=== PATIENT | female | born 1945 | race Caucasian/White ===

== ENCOUNTER 2023-03-08 07:40 | Outpatient (OUT) | payer MEDICARE, SELFPAY ==
[2023-03-08 08:03] LABS: Calcium 11.1 mg/dL (8.5-10.1); Estimated GFR (African America 35 (>=60); Estimated GFR (Non-African Ame 29 (>=60)
[2023-03-08 08:16] VITALS: BP 101/61; PULSE 60; RESP 20; TEMP 36.6; O2SAT 94
--- NOTE | 2023-03-08 08:21 | PC.NURSE ---
0759: Pt. to [facility] amb. per self. Using cane with ambulation. Seated in recliner. Denies adverse reaction from previous Prolia injections. VSS. Given cup of coffee. Awaiting lab results.
[2023-03-08] MEDS: DENOSUMAB 60 MG/ML SYRINGE SUBQ (08:28)
--- NOTE | 2023-03-08 08:33 | PC.NURSE ---
0828: Labs resulted. Pt. medicated with Prolia, 60mg, SQ to right arm. No bleeding to injection site. Pt. tolerated without c/o. 0833:Pt. d/c'd to home amb.
== END 2023-03-08 07:41 ==
LOC: LAB 07:40
PROVIDERS: PCP Family Medicine; Visit Provider Family Medicine
DX: M81.0 Age-related osteoporosis without current pathological fracture (principal)
CPT/HCPCS: 36415; 82310; 82565; 96372; J0897

== ENCOUNTER 2023-05-28 11:06 | Outpatient (OUT) | payer MEDICARE, SELFPAY ==
--- NOTE | 2023-05-28 11:09 | MM_ITS ---
Patient: JELLY MONTANEZ Exam Date: 05/28/2023 : 1945 Gender:F Ordering : DR Malcolm Bone . Admission #: [id number] Family : Order #: [id number] CLICK HERE TO VIEW EXAM RADIOLOGY REPORT PROCEDURE: MM TOMOSYNTHESIS SCREENING BI COMPARISON: MG MAMM SCREEN 3D HOMERO CAD, 05/25/2022. MG MAMM SCREEN 3D HOMERO CAD, 04/28/2021. MG MAMM SCREEN HOMERO W CAD, 11/13/2019. MG MAMM HOMERO SCRN W CAD DIG, 06/26/2013. INDICATIONS: Screening Calculator Name NCI Breast Cancer Risk Assessment Tool 5 Year Breast Cancer Risk 1.90% Lifetime Breast Cancer Risk 3.70% Personal Breast Cancer No Personal Ovarian Cancer No Treatments None Family Cancers Grandmother-paternal with breast cancer at age 60. LOCATION: [facility] BREAST COMPOSITION: Heterogeneously dense,which may obscure small masses. FINDINGS: DIAGNOSTIC CATEGORY 1--NEGATIVE. RIGHT BREAST: No significant suspicious finding. No significant change has occurred. LEFT BREAST: No significant suspicious finding. No significant change has occurred. RECOMMENDATIONS: ROUTINE MAMMOGRAM AND CLINICAL EVALUATION IN 12 MONTHS. PLEASE NOTE: A NORMAL MAMMOGRAM DOES NOT EXCLUDE THE POSSIBILITY OF BREAST CANCER. A CLINICALLY SUSPICIOUS PALPABLE LUMP SHOULD BE BIOPSIED. Dictated by: Devaughn Richards M.D. on 05/28/2023 at 16:25 Approved by: Devaughn Richards M.D. on 05/28/2023 at 16:26
== END 2023-05-28 11:07 | disposition home or self-care (01) ==
LOC: MAMMO 11:06
PROVIDERS: PCP Family Medicine; Visit Provider Family Medicine
DX: Z12.31 Encounter for screening mammogram for malignant neoplasm of breast (principal); Z80.3 Family history of malignant neoplasm of breast
CPT/HCPCS: 77063; 77067

== ENCOUNTER 2023-08-20 12:02 | Outpatient (REF) | payer MEDICARE, SELFPAY ==
[2023-08-20 13:35] LABS: SARS-CoV-2 Ag POSITIVE (NEGATIVE)
--- OUTSIDE RECORDS SUMMARY | 2023-09-17 22:23 | XMS_ITS | CCD ---
Author Name Unknown Address [address] [place] [address] Organization [facility] Care Team Providers Care Plug Paster Name Role Phone PHYSICIAN, DEFAULT Unavailable Unavailable PHYSICIAN, DEFAULT Unavailable Unavailable HOY, ISAK Unavailable Unavailable HOY ., DR PARISI Primary Care Unavailable HOY ., DR PARISI Admitting Unavailable HOY ., DR PARISI Attending Unavailable HOY ., DR PARISI Consulting Unavailable HOY ., DR PARISI Primary Care Unavailable HOY ., DR PARISI Admitting Unavailable HOY ., DR PARISI Attending Unavailable HOY ., DR PARISI Consulting Unavailable HOY ., DR PARISI Primary Care Unavailable HOY ., DR PARISI Attending Unavailable HOY ., DR PARISI Admitting Unavailable HOY ., DR PARISI Consulting Unavailable HOY ., DR PARISI Primary Care Unavailable HOY ., DR PARISI Attending Unavailable HOY ., DR PARISI Admitting Unavailable HOY ., DR PARISI Admitting Unavailable HOY ., DR PARISI Attending Unavailable HOY ., DR PARISI Consulting Unavailable HOY ., DR PARISI Primary Care Unavailable HOY ., DR PARISI Primary Care Unavailable HOY ., DR PARISI Attending Unavailable HOY ., DR PARISI Admitting Unavailable HOY ., DR PARISI Consulting Unavailable HOY ., DR PARISI Admitting Unavailable HOY ., DR PARISI Attending Unavailable HOY ., DR PARISI Consulting Unavailable HOY ., DR PARISI Primary Care Unavailable EZEKIEL, DR SHILA Serrato Consulting Unavailable ALGHOTHANI, MOHAMAD Admitting Unavailable HOY ., DR PARISI Primary Care Unavailable ALGHOTHANI, MOHAMAD Attending Unavailable ALGHOTHANI, MOHAMAD Consulting Unavailable HOY ., DR PARISI Admitting Unavailable HOY ., DR PARISI Primary Care Unavailable HOY ., DR PARISI Attending Unavailable HOY ., DR PARISI Consulting Unavailable PAMELA PECK Consulting Unavailable ALGHOTHANI, MOHAMAD Attending Unavailable EFREN, ADRIAN Attending Unavailable HOY, ISAK Referring Unavailable AKIRA, MYNOR Attending Unavailable AKIRA, MYNOR Attending Unavailable AKIRA, MYNOR Attending Unavailable AKIRA, MYNOR Referring Unavailable ROMAN, JOHNNIE Admitting Unavailable ROMAN, JOHNNIE Attending Unavailable ALGHOTHANI, MOHAMAD Attending Unavailable ALGHOTHANI, MOHAMAD Admitting Unavailable ALGHOTHANI, MOHAMAD Attending Unavailable ROJELIO, LILIA Attending Unavailable ALGHOTHANI, MOHAMAD Referring Unavailable AKIRA, MYNOR Referring Unavailable EFREN, ADRIAN Referring Unavailable ALGHOTHANI, MOHAMAD Referring Unavailable Allergies Allergy Classification Reported Allergen(s) Allergy Type Date of Onset Reaction(s) Facility (4 sources) Penicillins; Translations: [PENICILLINS] Drug allergy (disorder) 08-10-2009 [facility] Repository Problems Active Problems Problem Classification Problem Date Documented Date Episodic/Chronic Cardiac dysrhythmias (2 sources) Paroxysmal atrial fibrillation; Translations: [Paroxysmal atrial fibrillation] Onset: 07-12-2023 Chronic Chronic kidney disease (2 sources) Chronic kidney disease, stage 1; Translations: [Chronic kidney disease, unspecified] Onset: 12-07-2022 Chronic Congestive heart failure; nonhypertensive (1 source) Unspecified diastolic (congestive) heart failure; Translations: [UNSPECIFIED DIASTOLIC HEART FAILURE] Onset: 10-31-2022 Chronic Coronary atherosclerosis and other heart disease (3 sources) Atherosclerotic heart disease of [place] coronary artery without angina pectoris; Translations: [ASHD SAULT STE[address] MARIE CA W/O ANGINA PECTORIS] Onset: 10-31-2022 Chronic Disorders of lipid metabolism (1 source) Hyperlipidemia, unspecified; Translations: [HYPERLIPIDEMIA UNSPECIFIED] Onset: 10-31-2022 Chronic Heart valve disorders (2 sources) Nonrheumatic mitral (valve) insufficiency; Translations: [Nonrheumatic mitral (valve) insufficiency] Onset: 11-07-2022 Chronic Hypertension with complications and secondary hypertension (5 sources) Hypertensive chronic kidney disease with stage 1 through stage 4 chronic kidney disease, or unspecified chronic kidney disease; Translations: [Hypertensive heart disease with heart failure] Onset: 10-31-2022 Chronic Nutritional deficiencies (4 sources) Vitamin D deficiency, unspecified; Translations: [VITAMIN D DEFICIENCY UNSPECIFIED] Onset: 10-29-2022 Chronic Osteoarthritis (2 sources) Unilateral primary osteoarthritis, left knee; Translations: [Unilateral primary osteoarthritis, left knee] Onset: 04-16-2023 Chronic Osteoporosis (4 sources) Age-related osteoporosis without current pathological fracture; Translations: [AGE-REL OSTEOPOR W/O CURR PATH FX] Onset: 09-05-2022 Chronic Other and ill-defined heart disease (3 sources) Cardiomegaly; Translations: [CARDIOMEGALY] Onset: 10-31-2022 Chronic Other connective tissue disease (2 sources) Presence of left artificial knee joint; Translations: [Presence of left artificial knee joint] Onset: 07-27-2023 Chronic Pulmonary heart disease (3 sources) Pulmonary hypertension, unspecified; Translations: [PULMONARY HYPERTENSION UNSPECIFIED] Onset: 10-31-2022 Chronic Unclassified (1 source) Other abnormal findings on cytological and histological examination of urine; Translations: [OTH ABN FIND CYTLG HISTLG EXM URINE] Onset: 12-07-2022 Unclassified (2 sources) Chronic atrial fibrillation, unspecified; Translations: [Chronic atrial fibrillation, unspecified] Onset: 07-12-2023 Urinary tract infections (1 source) Urinary tract infection, site not specified; Translations: [UTI SITE NOT SPECIFIED] Onset: 12-07-2022 Episodic Past or Other Problems Problem Classification Problem Date Documented Date Episodic/Chronic Deficiency and other anemia (1 source) Anemia, unspecified; Translations: [ANEMIA UNSPECIFIED] Onset: 10-31-2022 Episodic Diabetes mellitus without complication (1 source) Other abnormal glucose; Translations: [OTHER ABNORMAL GLUCOSE] Onset: 10-31-2022 Episodic Nonspecific chest pain (1 source) Chest pain, unspecified; Translations: [CHEST PAIN UNSPECIFIED] Onset: 11-04-2022 Episodic Other lower respiratory disease (4 sources) Shortness of breath; Translations: [SHORTNESS OF BREATH] Onset: 11-01-2022 Episodic Other non-traumatic joint disorders (2 sources) Pain in left knee; Translations: [Pain in left knee] Onset: 04-11-2023 Episodic Other screening for suspected conditions (not mental disorders or infectious disease) (6 sources) Encounter for screening mammogram for malignant neoplasm of breast; Translations: [Abnormal result of other cardiovascular function study] Onset: 05-25-2022 Episodic Residual codes; unclassified (1 source) Family history of malignant neoplasm of breast; Translations: [FAMILY HX MALIG NEOPLASM OF BREAST] Onset: 05-27-2022 Episodic Results Test Name Value Interpretation Reference Range Facil ity Office Visiton 09-13-2023 Follow-up visit [id number] Mignon Montanez cinthia E 1945 Provider Department Center 09/13/2023 120-ROJELIO, LILIA BH CARD [facility] Family History Problem Relation Age of Onset Other Mother Other Mother Heart attack Father's Sister Family Status - Relation Status Age at Mother Father's Sister Level of Service:46502 [place] OFFICE/OUTPATIENT ESTABLISHED MOD MDM 30-39 MIN Normal [facility] Office Visiton 08-29-2023 Follow-up visit [id number] Mignon Montanez cinthia E 1945 Provider Department Center 08/29/2023 MYNOR SANDOVAL [facility] Family History Problem Relation Age of Onset Other Mother Other Mother Heart attack Father's Sister Family Status - Relation Status Age at Mother Father's Sister Level of Service:85351 [place] POSTOP FOLLOW UP VISIT RELATED TO ORIGINAL PX Reason for Visit and Comments: Pain [136] - L TKA Normal [facility] Office Visiton 07-25-2023 Follow-up visit [id number] Mignon Montanez cinthia E 1945 Provider Department Center 07/25/2023 MYNOR SANDOVAL MPRTDIAMOND Family History Problem Relation Age of Onset Other Mother Other Mother Heart attack Father's Sister Family Status - Relation Status Age at Mother Father's Sister Level of Service:28835 [place] POSTOP FOLLOW UP VISIT RELATED TO ORIGINAL PX Reason for Visit and Comments: Post-op [483] [facility] 36on 07-18-2023 36 Left VM for Any faustin that patient has a MINAL dressing not a wound vac and it does not need to be changed. The box will automatically shut off tomorrow and he or she can cut the tubing near the dressing and leave the dry dressing in place. I left my number if he has an questions. [facility] 36on 07-17-2023 36 ANY FROM HOME HEALT H CALLED REQUESTING CLARIFICATION ON WOUND VAC ORDERS FROM L TKA , HE ALSO NEEDS CLARIFICATION ON PT , HE WILL SEE PATIENT 2X/WEEK FOR 2 WEEKS, PLEASE CALL TO CONFIRM // ANY [phone] [facility] Telephoneon 07-17-2023 Telephone [id number] Mignon Montanez Abbie 1945 F Date Provider Department Center 07/17/2023 Demi-URIEL DASILVA MP ORTHO MPORTHO Family History Problem Relation Age of Onset Other Mother Other Mother Heart attack Father's Sister Family Status - Relation Status Age at Mother Father's Sister Reason for Visit and Comments: HOME HEALTH ORDERS [Other] - ANY FROM HOME HEALTH CALLED REQUESTING CLARIFICATION ON WOUND VAC ORDERS FROM L TKA , HE ALSO NEEDS CLARIFICATION ON PT , HE WILL SEE PATIENT 2X/WEEK FOR 2 WEEKS, PLEASE CALL TO CONFIRM // ANY [phone] [facility] 30on 07-16-2023 30 Problem: Pain - Adul t Goal: Verbalizes/displays adequate comfort level or baseline comfort level Outcome: Progressing The patient is Moderately Stable - Low risk of patient condition declining or worsening The patient's goals for the shift include walk to bathroom The clinical goals for the shift include comfort Normal [facility] on 07-15-2023 30 Problem: Pain - Adul t Goal: Verbalizes/displays adequate comfort level or baseline comfort level Outcome: Progressing Problem: Safety - Adult Goal: Free from fall injury Outcome: Progressing The patient is Moderately Stable - Low risk of patient condition declining or worsening The patient's goals for the shift include walk to bathroom The clinical goals for the shift include comfort Normal [facility] BASIC METABOLIC PANELon 06-30 Anion gap [Moles/Vol] 8 mmol/L Normal 7-20 [facility] Comment on above: Performed By: #### L [id number] #### [facility] ([facility]) [address] [place] [address] Calcium [Mass/Vol] 9.0 mg/dL Normal 8.6-10.3 [facility] Comment on above: Performed By: #### L [id number] #### [facility] ([facility]) [address] [place] [address] Chloride [Moles/Vol] 110 mmol/L High 98-107 [facility] Comment on above: Performed By: #### L [id number] #### [facility] ([facility]) [address] [place] [address] CO2 [Moles/Vol] 19 mmol/L Low 21-31 [facility] Comment on above: Performed By: #### L [id number] #### [facility] ([facility]) [address] [place] [address] Creatinine [Mass/Vol] 1.68 mg/dL High 0.60-1.20 [facility] Comment on above: Performed By: #### L [id number] #### [facility] ([facility]) [address] [place] [address] GLOMERULAR FILTRATION RATE ML/MIN/1.73 SQ M.PREDICTED 31.1 mL/min/1.73m*2 Low >60.0 [facility] Comment on above: Result Comment: The [facility]???s estimated glomerular filtration rate (eGFR) will no longer include consideration of race in its calculation. The National Kidney Foundation???s eGFR Task Force developed new recommendations for the estimation of the glomerular filtration rate in the [place] They recommend immediate implementation of the new equation refit without the race variable in all laboratories because the calculation does not include race. In addition to not including race in the calculation and reporting, it included diversity in its development, and has acceptable performance characteristics and potential consequences that do not disproportionately affect any one group of individuals. Performed By: #### L [id number] #### [facility] ([facility]) [address] [place] [address] Glucose [Mass/Vol] 87 mg/dL Normal 70-100 [facility] Comment on above: Performed By: #### L [id number] #### [facility] ([facility]) [address] [place] [address] Potassium [Moles/Vol] 4.1 mmol/L Normal 3.5-5.1 [facility] Comment on above: Performed By: #### L [id number] #### [facility] ([facility]) [address] [place] [address] Sodium [Moles/Vol] 133 mmol/L Low 136-145 [facility] Comment on above: Performed By: #### L [id number] #### [facility] ([facility]) [address] [place] [address] Urea nitrogen [Mass/Vol] 41 mg/dL High 7-25 [facility] Comment on above: Performed By: #### L [id number] #### [facility] [address] [place] [address] UREA NITROGEN/CREATININE (MA SS RATIO) IN SER/PLAS 24.4 Normal [facility] Comment on above: Performed By: #### L [id number] #### [facility] [address] [place] [address] CBCon 07-15-2023 Erythrocyte distribution wid th (RBC) [Ratio] 13.6 % Normal 11.5-15.0 [facility] Comment on above: Performed By: #### L [id number] #### [facility] [address] [place] [address] ERYTHROCYTE MEAN CORPUSCULAR HEMOGLOBIN CONCENTRATION (G/DL) BY AUTOMATED 31.1 g/dL Low 32.0-35.0 [facility] Comment on above: Performed By: #### L [id number] #### [facility] ([facility]) [address] [place] [address] Hematocrit (Bld) [Volume fraction] 24.1 % Low 36.0-48.0 [facility] Comment on above: Performed By: #### L [id number] #### [facility] ([facility]) [address] [place] [address] Hemoglobin (Bld) [Mass/Vol] 7.5 g/dL Low 12.0-15. 0 [facility] Comment on above: Performed By: #### L [id number] #### [facility] ([facility]) [address] [place] [address] MCH (RBC) [Entitic mass] 32.5 pg Normal 27.0-33.0 [facility] Comment on above: Performed By: #### L [id number] #### [facility] ([facility]) [address] [place] [address] MCV (RBC) [Entitic vol] 104.3 fL High 82.0-98.0 [facility] Comment on above: Performed By: #### L [id number] #### [facility] ([facility]) [address] [place] [address] PLATELETS (10*3/UL) IN BLOOD AUTOMATED COUNT 151 10*3/uL Normal 150-400 [facility] Comment on above: Performed By: #### L [id number] #### [facility] ([facility]) [address] [place] [address] RBC (Bld) [#/Vol] 2.31 10*6/uL Low 3.80-5.00 [facility] Comment on above: Performed By: #### L [id number] #### [facility] ([facility]) [address] [place] [address] WBC (Bld) [#/Vol] 8.66 10*3/uL Normal 4.00-10.60 [facility] Comment on above: Performed By: #### L [id number] #### [facility] ([facility]) [address] [place] [address] 30on 07-14-2023 30 PT/OT rec SNF today. Spoke with pt and family at bedside. She reports she did better than yesterday but is not comfortable going home today. Explained to pt. The pre-cert process with SNF and that she would be here for days while that is being worked on. She is agreeable but hopeful she will improve enough by tomorrow to go home with use of a rolling walker. reports he as one available. Pt requests referrals be sent to [facility]. SW sent. Normal [facility] 30 The patient is Moder ately Stable - Low risk of patient condition declining or worsening The patient's goals for the shift include walk to bathroom The clinical goals for the shift include comfort Over the shift, the patient did not make progress toward the following goals. Barriers to progression include unsteadiness. Recommendations to address these barriers include emotional support, PT/OT, ambulating . Normal [facility] BASIC METABOLIC PANELon 10- Anion gap [Moles/Vol] 10 mmol/L Normal 7-20 [facility] Comment on above: Performed By: #### L [id number] #### [facility] ([facility]) [address] [place] [address] Calcium [Mass/Vol] 9.4 mg/dL Normal 8.6-10.3 [facility] Comment on above: Performed By: #### L [id number] #### [facility] ([facility]) [address] [place] [address] Chloride [Moles/Vol] 109 mmol/L High 98-107 [facility] Comment on above: Performed By: #### L [id number] #### [facility] ([facility] [address] [place] [address] CO2 [Moles/Vol] 21 mmol/L Normal 21-31 [facility] Comment on above: Performed By: #### L [id number] #### [facility] ([facility]) [address] [place] [address] Creatinine [Mass/Vol] 1.66 mg/dL High 0.60-1.20 [facility] Comment on above: Performed By: #### L [id number] #### [facility] ([facility]) [address] [place] [address] GLOMERULAR FILTRATION RATE ML/MIN/1.73 SQ M.PREDICTED 31.6 mL/min/1.73m*2 Low >60.0 [facility] Comment on above: Result Comment: The [facility]???s estimated glomerular filtration rate (eGFR) will no longer include consideration of race in its calculation. The National Kidney Foundation???s eGFR Task Force developed new recommendations for the estimation of the glomerular filtration rate in the [place] They recommend immediate implementation of the new equation refit without the race variable in all laboratories because the calculation does not include race. In addition to not including race in the calculation and reporting, it included diversity in its development, and has acceptable performance characteristics and potential consequences that do not disproportionately affect any one group of individuals. Performed By: #### L [id number] #### [facility] ([facility]) [address] [place] [address] Glucose [Mass/Vol] 100 mg/dL Normal 70-100 [facility] Comment on above: Performed By: #### L [id number] #### [facility] ([facility]) [address] [place] [address] Potassium [Moles/Vol] 4.7 mmol/L Normal 3.5-5.1 [facility] Comment on above: Performed By: #### L [id number] #### [facility] ([facility]) [address] [place] [address] Sodium [Moles/Vol] 135 mmol/L Low 136-145 [facility] Comment on above: Performed By: #### L [id number] #### [facility] ([facility]) [address] [place] [address] Urea nitrogen [Mass/Vol] 38 mg/dL High 7-25 [facility] Comment on above: Performed By: #### L [id number] #### [facility] ([facility]) [address] [place] [address] UREA NITROGEN/CREATININE (MA SS RATIO) IN SER/PLAS 22.9 Normal [facility] Comment on above: Performed By: #### L [id number] #### [facility] ([facility]) [address] [place] [address] CBCon 07-14-2023 Erythrocyte distribution wid th (RBC) [Ratio] 13.5 % Normal 11.5-15.0 [facility] Comment on above: Performed By: #### L [id number] #### [facility] ([facility]) [address] [facility] [place] [address] ERYTHROCYTE MEAN CORPUSCULAR HEMOGLOBIN CONCENTRATION (G/DL) BY AUTOMATED 31.4 g/dL Low 32.0-35.0 [facility] Comment on above: Performed By: #### L [id number] #### [facility] ([facility] [address] [place] [address] Hematocrit (Bld) [Volume fraction] 24.5 % Low 36.0-48.0 [facility] Comment on above: Performed By: #### L [id number] #### [facility] [address] [place] [address] Hemoglobin (Bld) [Mass/Vol] 7.7 g/dL Low 12.0-15. 0 [facility] Comment on above: Performed By: #### L [id number] #### [facility] [address] [place] [address] MCH (RBC) [Entitic mass] 32.4 pg Normal 27.0-33.0 [facility] Comment on above: Performed By: #### L [id number] #### [facility] ([facility] [address] [place] [address] MCV (RBC) [Entitic vol] 102.9 fL High 82.0-98.0 [facility] Comment on above: Performed By: #### L [id number] #### [facility] [address] [place] [address] PLATELETS (10*3/UL) IN BLOOD AUTOMATED COUNT 148 10*3/uL Low 150-400 [facility] Comment on above: Performed By: #### L [id number] #### [facility] ([facility] [address] [place] [address] RBC (Bld) [#/Vol] 2.38 10*6/uL Low 3.80-5.00 [facility] Comment on above: Performed By: #### L [id number] #### [facility] ([facility] [address] [place] [address] WBC (Bld) [#/Vol] 11.57 10*3/uL High 4.00-10.60 [facility] Comment on above: Performed By: #### L [id number] #### [facility] ([facility]) [address] [place] [address] FERRITINon 07-14-2023 FERRITIN (NG/ML) IN SER/PLAS 364.0 ng/mL High 11.0-3 07.0 [facility] Comment on above: Performed By: #### L [id number] #### [facility] ([facility]) [address] [place] [address] FOLATEon 07-14-2023 FOLATE (NG/ML) IN SER/PLAS 14.79 ng/mL Normal 6.6-1000 [facility] Comment on above: Performed By: #### L [id number] #### [facility] [address] [place] [address] IRON AND TIBCon 07-14-2023 IRON (UG/DL) IN SER/PLAS 36 ug/dL Low 50-212 [facility] Comment on above: Performed By: #### L [id number] #### [facility] [address] [place] [address] IRON BINDING CAPACITY (UG/DL ) IN SER/PLAS 218 ug/dL Low 250-450 [facility] Comment on above: Performed By: #### L [id number] #### [facility] ([facility]) [address] [place] [address] IRON BINDING CAPACITY.UNSATURATED (UG/DL) IN SER/PLAS 182.0 ug/dL Normal 155.0-355.0 [facility] [facility] Comment on above: Performed By: #### L [id number] #### [facility] (BEAKER) [address] [place] [address] IRON SATURATION (%) IN SER/PLAS 17 % Low 20-5 0 [facility] Comment on above: Performed By: #### L [id number] #### [facility] ([facility]) [address] [address] VITAMIN B12on 07-14-2023 Cobalamin (Vitamin B12) [Mass/Vol] 744 pg/mL Normal 180-914 [facility] Comment on above: Result Comment: REFAbbie RENRUTH RANGES: 180-914 pg/mL Normal 145-179 pg/mL Indeterminate <145 pg/mL Deficient Performed By: #### L [id number] #### [facility] ([facility]) [address] [place] [address] 30on 07-13-2023 30 Unable to get pt. Fo llow up appointment through central scheduling. AVS instructs pt. To call Ortho to schedule Normal [facility] 30 The patient is Moder ately Stable - Low risk of patient condition declining or worsening The patient's goals for the shift include comfort The clinical goals for the shift include comfort Over the shift, the patient did not make progress toward the following goals. Barriers to progression include pain. Recommendations to address these barriers include polar pack, rest, emotional support. Normal [facility] BASIC METABOLIC PANELon 06-30 Anion gap [Moles/Vol] 13 mmol/L Normal 7-20 [facility] Comment on above: Performed By: #### L [id number] #### [facility] ([facility]) [address] [place] [address] Calcium [Mass/Vol] 10.0 mg/dL Normal 8.6-10.3 [facility] Comment on above: Performed By: #### L [id number] #### [facility] ([facility]) [address] [place] [address] Chloride [Moles/Vol] 111 mmol/L High 98-107 [facility] Comment on above: Performed By: #### L [id number] #### [facility] ([facility]) [address] [facility] [address] CO2 [Moles/Vol] 19 mmol/L Low 21-31 [facility] Comment on above: Performed By: #### L [id number] #### [facility] ([facility]) [address] [place] [address] Creatinine [Mass/Vol] 1.47 mg/dL High 0.60-1.20 [facility] Comment on above: Performed By: #### L [id number] #### [facility] ([facility]) [address] [place] [address] GLOMERULAR FILTRATION RATE ML/MIN/1.73 SQ M.PREDICTED 36.5 mL/min/1.73m*2 Low >60.0 [facility] Comment on above: Result Comment: The [facility]???s estimated glomerular filtration rate (eGFR) will no longer include consideration of race in its calculation. The National Kidney Foundation???s eGFR Task Force developed new recommendations for the estimation of the glomerular filtration rate in the [place] They recommend immediate implementation of the new equation refit without the race variable in all laboratories because the calculation does not include race. In addition to not including race in the calculation and reporting, it included diversity in its development, and has acceptable performance characteristics and potential consequences that do not disproportionately affect any one group of individuals. Performed By: #### L [id number] #### [facility] ([facility]) [address] [place] [address] Glucose [Mass/Vol] 167 mg/dL High 70-100 [facility] Comment on above: Performed By: #### L [id number] #### [facility] ([facility]) [address] [place] [address] Potassium [Moles/Vol] 4.5 mmol/L Normal 3.5-5.1 [facility] Comment on above: Performed By: #### L [id number] #### [facility] ([facility]) [address] [place] [address] Sodium [Moles/Vol] 138 mmol/L Normal 136-145 [facility] Comment on above: Performed By: #### L [id number] #### [facility] ([facility]) [address] [place] [address] Urea nitrogen [Mass/Vol] 34 mg/dL High 7-25 [facility] Comment on above: Performed By: #### L [id number] #### [facility] ([facility]) [address] [place] [address] UREA NITROGEN/CREATININE (MA SS RATIO) IN SER/PLAS 23.1 Normal [facility] Comment on above: Performed By: #### L [id number] #### [facility] ([facility]) [address] [place] [address] CBCon 07-13-2023 Erythrocyte distribution wid th (RBC) [Ratio] 13.4 % Normal 11.5-15.0 [facility] Comment on above: Performed By: #### L [id number] #### [facility] ([facility]) [address] [place] [address] ERYTHROCYTE MEAN CORPUSCULAR HEMOGLOBIN CONCENTRATION (G/DL) BY AUTOMATED 31.1 g/dL Low 32.0-35.0 [facility] Comment on above: Performed By: #### L [id number] #### [facility] ([facility]) [address] [place] [address] Hematocrit (Bld) [Volume fraction] 27.0 % Low 36.0-48.0 [facility] Comment on above: Performed By: #### L [id number] #### [facility] ([facility]) [address] [facility] [facility] [address] Hemoglobin (Bld) [Mass/Vol] 8.4 g/dL Low 12.0-15. 0 [facility] Comment on above: Performed By: #### L [id number] #### [facility] ([facility]) [address] [facility] [address] MCH (RBC) [Entitic mass] 32.6 pg Normal 27.0-33.0 [facility] Comment on above: Performed By: #### L [id number] #### [facility] ([facility]) [address] [facility] [facility] [address] MCV (RBC) [Entitic vol] 104.7 fL High 82.0-98.0 [facility] Comment on above: Performed By: #### L [id number] #### [facility] (BEAKER) [address] [place] [address] PLATELETS (10*3/UL) IN BLOOD AUTOMATED COUNT 147 10*3/uL Low 150-400 [facility] Comment on above: Performed By: #### L [id number] #### [facility] ([facility]) [address] [place] [address] RBC (Bld) [#/Vol] 2.58 10*6/uL Low 3.80-5.00 [facility] Comment on above: Performed By: #### L [id number] #### [facility] ([facility]) [address] [place] [address] WBC (Bld) [#/Vol] 9.44 10*3/uL Normal 4.00-10.60 [facility] Comment on above: Performed By: #### L [id number] #### [facility] ([facility]) [address] [place] [address] HPon 07-12-2023 H&P reviewed. The pa tient was examined and there are no changes to the H&P. I personally examined the patient and Marked his operative extremity, all questions answered and consents signed. Discussed operative and post op plan. Normal [facility] OPNOTEon 07-12-2023 OPNOTE ARTHROPLASTY, KNEE, TOTAL (L) Operative Note Date: 07/12/2023 Location: [facility] OR Name: Lizabeth Montanez, : 1945, Diagnosis Pre-op Diagnosis * Localized osteoarthritis of left knee [M17.12] Post-op Diagnosis * Localized osteoarthritis of left knee [M17.12] Procedures ARTHROPLASTY, KNEE, TOTAL 61686 - [place] ARTHRP KNE CONDYLE&PLATU MEDIAL&LAT COMPARTMENTS Surgeons * Mynor Gallegos - Primary Ari Dey MD Procedure Summary Anesthesia: General ASA: III Estimated Blood Loss: 700 mL Drains: Urethral Catheter Non-latex 16 Fr. (Active) Site Assessment Clean;Skin intact 07/12/23 140 Collection Container Standard drainage bag 07/12/231400 Securement Method Securing device (Describe) 07/12/231400 Reason for Continuing Urinary Catheterization Critically ill in ICU, hourly outputs 07/12/23 140 Implants Type Name Action Serial No. Bone Cement CEMENT,BONE,R,1X40US - [id number] Implanted Bone Cement CEMENT,BONE,R,1X40US - [id number] Implanted PERSONA FEMUR CEMENTED CRUCIATE RETAINING Implanted PERSONA ALL POLY PATELLA Implanted PERSONA NATURAL TIBIA 5 DEGREE LEFT Implanted PERSONA VIVACIT-E HIGHLY CROSSLINKED POLYETHYLENE ARTICULAR SURFACE MEDIAL CONGRUENT Implanted Jean-Pierre [employer]omet Persona Total knee system Size 5 Cemented Cruciate retaining femoral component, Left Size E cemented tibial component , Persona 35 mm patella , Persona vivacit-E Medial congruent (MC) poly 13 mm , Biomet bone cement. Staff: Gwot Ia[employer] Support: Ju Rios; Rebecca Bertrand RN Relief Scrub: Hazel Baez Scrub Person: Ke Pike, RETAIL ANALYST Hydrology Professor: Sampson Almaraz CSA Indications: Lizabeth Montanez is an 78 y.o. female who is having surgery for Localized osteoarthritis of left knee [M17.12]. Patient with long standing Left knee pain and Deformity . Patient failed conservative treatment in the form of multiple joint injections. Recommendation were given for Left total knee arthroplasty. All the risks and benefits of the surgery were discussed in details with the patient. Discussed risk of anesthesia, infection, bleeding, injury to nerves and vessels, stiffness, persistence of pain, injury to surrounding structures, blood clots in the legs or lungs, medical complications and the need for revision surgery. Discussed with the patient that he is high risk for complications because of her severe deformity and extensive osteophyte formation. An informed consent was obtained. All the preoperative clearances and labs were obtained. Procedure Details: The patient was seen in the preoperative area. All questions were answered and consents were signed. Her operative extremity was marked. Patient received an adductor canal block by the anesthesia team. Patient was then taken back to the OR where she received general anesthesia. Patient was positioned in a supine position on the operating table. A nonsterile tourniquet was applied outside of the surgical field. Fernandez catheter was applied. Her Left lower extremity was prepped and draped in the standard sterile fashion. A complete surgical timeout was performed in the room in my presence I identified the patient the site of the surgery as well as the procedure to be done. Preoperative antibiotics were given per protocol. We Started by marking an anterior midline incision over the Left knee extending from the tibial tubercle to about 3 cm proximal to the superior pole of patella. . Incision was made dissection continued deeper to the deep fascia. A medial subfacial flap and a smaller lateral flap were elevated. A medial parapatellar arthrotomy was performed in the standard fashion. The knee was opened with significant amount of arthritis. The medial tibial peel was performed to the mid axial plane. The lateral patellar fat pad was excised to improve visualization. The synovium over the anterior aspect of the distal femur was excised. Good hemostasis was obtained using Aquamantys machine. At this point the patella was everted and the lateral patellofemoral ligament was released. The knee was very gently flexed and the leg externally rotated to decrease tension over the patellar ligament. At this point the knee was exposed with significant arthritis of the tibial and femoral surfaces especially in the medial compartments with complete cartilage loss and eburnation of articular surface as well as extensive osteophyte formation and significant depression of the articular surface.. The remnants of the medial and lateral menisci were removed. The remnants of the ACL and PCL attachments are released to decrease tension. At this point the femoral medullary canal was opened , the marrow contents suctioned and the intramedullary distal femoral cutting guide was applied. The cutting block was pinned and the distal femoral cut performed at 5 degrees pf valgus. At this point the proximal tibia was exposed with significant deformity of the dorothy (more content not included)... Normal [facility] POCT GLUCOSE METER UNSOLICIT ED RESULTSon 07-12-2023 Glucose [Mass/Vol] 108 mg/dL High 70-105 [facility] Comment on above: Order Comment: Waive d Testing in the ED is performed under the ED CLIA certificate #[id number]. Result Comment: dhol as Performed By: #### L [id number] #### [facility] ([facility]AKER) [address] [place] [address] [id number] 07-08-2023 [id number] NPO AFTER MN NO JEWELRY BRING INS AND ID ARRIVE AT [facility] HOLD ELIQUIS 07/09 STARTING PM DOSE HOLD NSAIDS STARTING TODAY 07/08 HOLD CELEBREX STARTING TOMORROW 07/09 TAKE HYDRALIZINE, DILTELZIEM, AND BISOPROLOL DAY OF SURGERY WITH SMALL SIP OF WATER. Normal [facility] Orders Onlyon 07-08-2023 Orders Only [id number] Mignon Montanez n E 1945 F Date Provider Department Center 07/08/2023 KENNA SCHWARTZ [facility] Family History Problem Relation Age of Onset Other Mother Other Mother Heart attack Father's Sister Family Status - Relation Status Age at Mother Father's Sister [facility] 36on 07-02-2023 36 Patient wants to kno w if akira can addend his note for surgery clearance, from 01/28/23, [facility] Telephoneon 07-02-2023 Telephone [id number] Mignon Montanez n E 1945 F Date Provider Department Center 07/02/2023 ANNE FUCHS [facility] OR[facility]O MPOHO Family History Problem Relation Age of Onset Other Mother Other Mother Heart attack Father's Sister Family Status - Relation Status Age at Mother Father's Sister [facility] APTTon 06-27-2023 ACTIVATED PARTIAL THROMBOPLASTIN TIME IN PPP BY COAGULATION ASSAY 32.4 Seconds Normal 25.0-35.0 [facility] Comment on above: Result Comment: Clin ical significance of the APTT is questionable in the presence of heparin. Performed By: #### L [id number] ####[facility] (BEAKER)[address] [place] [address] BASIC METABOLIC PANELon 06-01 Anion gap [Moles/Vol] 10 mmol/L Normal 7-20 [facility] Comment on above: Performed By: #### L [id number] #### [facility] (BEAKER) [address] [place] [address] Calcium [Mass/Vol] 11.5 mg/dL High 8.6-10.3 [facility] Comment on above: Performed By: #### L [id number] #### [facility] (BEAKER) [address] [place] [address] Chloride [Moles/Vol] 113 mmol/L High 98-107 [facility] Comment on above: Performed By: #### L [id number] #### [facility] ([facility]) [address] [place] [address] CO2 [Moles/Vol] 22 mmol/L Normal 21-31 [facility] Comment on above: Performed By: #### L [id number] #### [facility] ([facility]) [address] [place] [address] Creatinine [Mass/Vol] 1.71 mg/dL High 0.60-1.20 [facility] Comment on above: Performed By: #### L [id number] #### [facility] ([facility]) [address] [place] [address] GLOMERULAR FILTRATION RATE ML/MIN/1.73 SQ M.PREDICTED 30.5 mL/min/1.73m*2 Low >60.0 [facility] Comment on above: Result Comment: The [facility]???s estimated glomerular filtration rate (eGFR) will no longer include consideration of race in its calculation. The National Kidney Foundation???s eGFR Task Force developed new recommendations for the estimation of the glomerular filtration rate in the [place] They recommend immediate implementation of the new equation refit without the race variable in all laboratories because the calculation does not include race. In addition to not including race in the calculation and reporting, it included diversity in its development, and has acceptable performance characteristics and potential consequences that do not disproportionately affect any one group of individuals. Performed By: #### L [id number] #### [facility] ([facility]) [address] [place] [address] Glucose [Mass/Vol] 98 mg/dL Normal 70-100 [facility] Comment on above: Performed By: #### L [id number] #### [facility] ([facility]) [address] [place] [address] Potassium [Moles/Vol] 5.2 mmol/L High 3.5-5.1 [facility] Comment on above: Performed By: #### L [id number] #### [facility] (BEAKER) [address] [place] [address] Sodium [Moles/Vol] 140 mmol/L Normal 136-145 [facility] Comment on above: Performed By: #### L [id number] #### [facility] [address] [place] [address] Urea nitrogen [Mass/Vol] 39 mg/dL High 7-25 [facility] Comment on above: Performed By: #### L [id number] #### [facility] ([facility] [address] [place] [address] UREA NITROGEN/CREATININE (MA SS RATIO) IN SER/PLAS 22.8 Normal [facility] Comment on above: Performed By: #### L [id number] #### [facility] ([facility] [address] [place] [address] CBC WITH AUTO DIFFERENTIALon 06-27-2023 Basophils (Bld) [#/Vol] 0.04 10*3/uL Normal 0.00-0.20 [facility] Comment on above: Performed By: #### L [id number] ####[facility] ([facility] [facility] [address] Basophils/100 WBC (Bld) 0.6 % Normal 0.0-1.0 [facility] Comment on above: Performed By: #### L [id number] ####[facility] (BEAKER)[address] [place] [address] Eosinophils (Bld) [#/Vol] 0.16 10*3/uL Normal 0.00-0.5 0 [facility] Comment on above: Performed By: #### L [id number] ####[facility] (BEAKER)[address] [place] [address] Eosinophils/100 WBC (Bld) 2.5 % Normal 0.0-6.0 [facility] Comment on above: Performed By: #### L [id number] ####[facility] (BEAKER)[address] [place] [address] Erythrocyte distribution wid th (RBC) [Ratio] 13.4 % Normal 11.5-15.0 [facility] Comment on above: Performed By: #### L [id number] ####[facility] (BEAKER)[address] [place] [address] ERYTHROCYTE MEAN CORPUSCULAR HEMOGLOBIN CONCENTRATION (G/DL) BY AUTOMATED 32.3 g/dL Normal 32.0-35.0 [facility] Comment on above: Performed By: #### L [id number] ####[facility] (BEAKER)[address] [place] [address] Hematocrit (Bld) [Volume fraction] 31.0 % Low 36.0-48.0 [facility] Comment on above: Performed By: #### L [id number] ####[facility] (BEAKER)[address] [place] [address] Hemoglobin (Bld) [Mass/Vol] 10.0 g/dL Low 12.0-15. 0 [facility] Comment on above: Performed By: #### L [id number] ####[facility] (BEAKER)[address] [place] [address] Immature granulocytes (Bld) [#/Vol] 0.02 10*3/uL Normal 0.00-0.20 [facility] Comment on above: Performed By: #### L [id number] ####[facility] (BEAKER)[address] [place] [address] Immature granulocytes/100 WBC (Bld) 0.3 % Normal 0.0-1.0 [facility] Comment on above: Performed By: #### L [id number] ####[facility] (BEAKER)[address] [place] [address] Lymphocytes (Bld) [#/Vol] 1.05 10*3/uL Low 1.20-4.0 0 [facility] Comment on above: Performed By: #### L [id number] ####[facility] (BEAKER)[address] [place] [address] Lymphocytes/100 WBC (Bld) 16.2 % Low 20.0-45.0 [facility] Comment on above: Performed By: #### L [id number] ####[facility] ([facility] [place] [address] MCH (RBC) [Entitic mass] 32.9 pg Normal 27.0-33.0 [facility] Comment on above: Performed By: #### L [id number] ####[facility] ([facility])[address] [place] [address] MCV (RBC) [Entitic vol] 102.0 fL High 82.0-98.0 [facility] Comment on above: Performed By: #### L [id number] ####[facility] ([facility])[address] [place] [address] Monocytes (Bld) [#/Vol] 0.50 10*3/uL Normal 0.10-1.00 [facility] Comment on above: Performed By: #### L [id number] ####[facility] ([facility] [place] [address] Monocytes/100 WBC (Bld) 7.7 % Normal 5.0-12.0 [facility] Comment on above: Performed By: #### L [id number] ####[facility] ([facility] [place] [address] Neutrophils (Bld) [#/Vol] 4.72 10*3/uL Normal 1.60-7.6 0 [facility] Comment on above: Performed By: #### L [id number] ####[facility] (BEAKER)[address] [place] [address] Neutrophils/100 WBC (Bld) 72.7 % High 40.0-72.0 [facility] Comment on above: Performed By: #### L [id number] ####[facility] (BEAKER)[address] [place] [address] NRBC (PER 100 WBCS) BY AUTOM ATED COUNT 0.0 % Normal 0 [facility] Comment on above: Performed By: #### L [id number] ####[facility] ([facility])[address] [place] [address] PLATELETS (10*3/UL) IN BLOOD AUTOMATED COUNT 191 10*3/uL Normal 150-400 [facility] Comment on above: Performed By: #### L [id number] ####[facility] ([facility])[address] [address] RBC (Bld) [#/Vol] 3.04 10*6/uL Low 3.80-5.00 [facility] Comment on above: Performed By: #### L [id number] ####[facility] ([facility])[address] [place] [address] WBC (Bld) [#/Vol] 6.49 10*3/uL Normal 4.00-10.60 [facility] Comment on above: Performed By: #### L [id number] ####[facility] ([facility])[address] [place] [address] Consulton 06-27-2023 Consult [id number] Mignon Montanez 1945 F Date Provider Department Pablo 06/27/2023 MYNOR SANDOVAL ORTHO MPORTHO Family History Problem Relation Age of Onset Other Mother Other Mother Heart attack Father's Sister Family Status - Relation Status Age at Mother Father's Sister Level of Service:57212 [place] OFFICE/OUTPATIENT ESTABLISHED LOW MDM 20-29 MIN (GC) Reason for Visit and Comments: Pre-op Exam [[id number]] Normal [facility] HEMOGLOBIN A1Con 06-27-2023 Glucose [Mass/Vol] 97 mg/dL Normal [facility] Comment on above: Performed By: #### L [id number] #### [facility] ([facility] [address] [place] [address] HbA1c (Bld) [Mass fraction] 5.0 % Normal 4.0-6.0 [facility] Comment on above: Performed By: #### L [id number] #### [facility] (RYAN) [address] [place] [address] on 06-27-2023 Orthopedic Surgery Subjective Pre-op Exam of the Left Knee 06/27/23 Patient is here for preoperative visit for left total knee arthroplasty scheduled for 07/12/2023 she reports that her symptoms are unchanged from prior office visit as she continues to have significant pain. She has obtained clearances from her PCP and cardiology. Patient is taking Eliquis for atrial fibrillation, although she has received clearance from cardiology we will follow-up to determine when patient should stop taking Eliquis prior to surgery. 04/11/23 Lizabeth Montanez is a 78 y.o. female presenting for evaluation of left knee osteoarthritis. She says that her left knee is disintegrating . She says that she has been dealing with significant left knee pain for the past 5 years. She has tried over the counter pain medication, therapy, and CSI injections, none of which have provided significant relief for her pain. She takes 200 mg of Celebrex 3x daily which provides a small amount of relief. She reports that weather will maker her knee worse, namely rainy or ominous weather. She takes Eliquis for Afib. She states that she had a penicillin allergy when she was a child. Review of Systems unremarkable aside from what is noted in HPI Joint pain Patient History Past Surgical History: Procedure Laterality Date CARDIOVERSION Past Medical History: Diagnosis Date Atrial fibrillation (CMS/HCC) Hypertension Pulmonary hypertension (CMS/HCC) Objective General: Body mass index is 32.28 kg/m???. No acute distress, comfortable Respiratory: Unlabored breathing with normal rate, no cough Cardiovascular: Warm well perfused extremities Psych: Appropriate mood behavior Left Knee: Full ROM in extension and flexion. 4/5 strength in each. Joint line is palpable with notable medial subluxation of the femur. (-) a/p drawer tests (-) varus/valgus stress tests Imaging personally reviewed: X rays of the Left knee 3 views obtained today in clinic showed Left knee advanced Osteoarthritis with bone on bone arthritis severe varus deformity and subluxation Assessment/Plan Lizabeth Montanez is a 78 y.o. female presenting for evaluation of osteoarthritis of the left knee.patient with significant deformity and failed conservative treatment Discussed with the patient all the risks and benefits of surgery as well as the nonsurgical options. Discussed risk of anesthesia, Infection, bleeding, injury to nerves and vessels, injury to surrounding structures, stiffness, persistence of pain, blood clots to the legs or the lungs, medical complications and the need for revision surgery. Patient understood the recommendations and possible risks and elected to proceed with surgery. Informed consent was obtained. -06/06/[address] Ugalde: Moderate risk for procedure and can proceed without additional testing. 06/24/[address] Bone. -Left total knee arthroplasty 07/12/2023 Riki Le MD Orthopaedic Surgery, PGY-1 By using the attestations below, the signing clinician agrees that I have read and verify that the documentation has been personally reviewed by me and ensure that the documentation accurately reflects the encounter. GC: I personally saw this patient on the day of the encounter, performed the persaud portion(s) of the service and participated in the management and confirm the resident's documentation. Please note there may be an additional personal documentation from me. Normal [facility] Labon 06-27-2023 Lab [id number] Mignon Montanez cinthia E 1945 F Date Provider Department Center 06/27/2023 2244-[facility] MP LAB RESOURCE MP DRAW Medical Pavi Family History Problem Relation Age of Onset Other Mother Other Mother Heart attack Father's Sister Family Status - Relation Status Age at Mother Father's Sister Normal [facility] MRSA/MSSA DNA NASALon 2022 MRSA DNA Negative Normal Negative [facility] Comment on above: Order Comment: Testi ng methodology is an automated qualitative in vitro diagnostic test for the directdetection and differentiation of Staphylococcus aureus (SA) DNA and methicillin-resistant Staphylococcus aureus (MRSA) DNA from nasal swabs in patients at risk for nasal colonization. The test utilizes real-time polymerase chain reaction (PCR) for the amplification of MRSA/SA DNA and fluorogenic target-specific hybridization probes for the detection of the amplified DNA. A negative result does not preclude nasal colonization. Performed By: #### L [id number] ####[facility] (BEAKER)[address] [place] [address] MSSA DNA Positive Abnormal Negative [facility] Comment on above: Order Comment: Testi ng methodology is an automated qualitative in vitro diagnostic test for the directdetection and differentiation of Staphylococcus aureus (SA) DNA and methicillin-resistant Staphylococcus aureus (MRSA) DNA from nasal swabs in patients at risk for nasal colonization. The test utilizes real-time polymerase chain reaction (PCR) for the amplification of MRSA/SA DNA and fluorogenic target-specific hybridization probes for the detection of the amplified DNA. A negative result does not preclude nasal colonization. Performed By: #### L [id number] ####[facility] [employer])[address] [place] [address] PROTIME-INRon 06-27-2023 INR IN PPP BY COAGULATION ASSAY 1.38 High 0.90 -1.10 [facility] Comment on above: Result Comment: ACCCP RECOMMENDED INR FO R WARFARIN THERAPY CONDITION INR PROPHYLAXIS OF VENOUS THROMBOSIS 2-3 (HIGH-RISK SURGERY) TREATMENT OF VENOUS THROMBOSIS 2-3 TREATMENT OF PULMONARY EMBOLISM 2-3 PREVENTION OF SYSTEMIC EMBOLISM: 2-3 ACUTE MYOCARDIAL INFARCTION TISSUE HEART VALVES VALVULAR HEART DISEASE ATRIAL FIBRILLATION RECURRENT SYSTEMIC EMBOLISM MECHANICAL HEART VALVE 2.5-3.5 FROM: ORAL ANTICOAGULANTS. MECHANISM OF ACTION, CLINICAL EFFECTIVENESS, AND OPTIMAL THERAPEUTIC RANGE. CHEST 1995;108:231S-246S. Performed By: #### L [id number] #### [facility] [employer]) [address] [place] [address] PROTHROMBIN TIME (PT) IN PPP BY COAGULATION ASSAY 17.0 Seconds High 12.3-14.8 [facility] Comment on above: Performed By: #### L [id number] #### [facility] [employer]) [address] [place] [address] TYPE AND SCREENon 06-27-2023 AB SCREEN Negative Normal [facility] Comment on above: Performed By: #### L [id number] #### [facility] BLOOD BANK , ABO group Nom (Bld) O Normal [facility] Comment on above: Performed By: #### L [id number] #### [facility] BLOOD BANK , RH TYPE IN BLOOD Positive Normal [facility] Comment on above: Performed By: #### L [id number] #### [facility] BLOOD BANK , URINALYSIS MICROSCOPIC WITH REFLEX CULTUREon 06-27-2023 CASTS IN URINE Normal [facility] Comment on above: Performed By: #### L [id number] #### [facility] (BEAKER) [address] [place] [address] CRYSTALS IN URINE Normal [facility] Comment on above: Performed By: #### L [id number] #### [facility] (BEAKER) [address] [place] [address] OTHER MICROSCOPIC ELEMENTS Normal [facility] Comment on above: Performed By: #### L [id number] #### [facility] (BEAKER) [address] [place] [address] RBC (#/HPF) IN URINE SEDIMENT None Seen Normal None Seen [facility] Comment on above: Performed By: #### L [id number] #### [facility] (BEAKER) [address] [place] [address] SQUAMOUS EPITHELIAL CELLS (#/HPF) IN URINE SEDIMENT Moderate Abnormal None Seen, Occasional [facility] Comment on above: Performed By: #### L [id number] #### [facility] (BEAKER) [address] [place] [address] WBC (LEUKOCYTE) (#/HPF) IN U RINE SEDIMENT 3-5 Abnormal None Seen [facility] Comment on above: Performed By: #### L [id number] #### [facility] (BEAKER) [address] [place] [address] URINALYSIS WITH REFLEX CULTU REon 06-27-2023 BILIRUBIN, TOTAL PRESENCE IN URINE Negative Normal Negative [facility] Comment on above: Performed By: #### L [id number] #### [facility] ([facility]) [address] [place] [address] Clarity (U) Clear Normal Clear [facility] Comment on above: Performed By: #### L [id number] #### [facility] ([facility]) [address] [place] [address] Color (U) Yellow Normal Yellow [facility] Comment on above: Performed By: #### L [id number] #### [facility] ([facility]) [address] [place] [address] Glucose (U) [Mass/Vol] Negative Normal [facility] Comment on above: Performed By: #### L [id number] #### [facility] ([facility]) [address] [place] [address] HEMOGLOBIN PRESENCE IN URINE Negative Normal Negativ e [facility] Comment on above: Performed By: #### L [id number] #### [facility] ([facility]) [address] [place] [address] Ketones Ql (U) Negative Normal Negative [facility] Comment on above: Performed By: #### L [id number] #### [facility] ([facility]) [address] [place] [address] LEUKOCYTE ESTERASE PRESENCE IN URINE BY TEST STRIP Trace Abnormal Negative [facility] Comment on above: Performed By: #### L [id number] #### [facility] ([facility]) [address] [place] [address] NITRITE PRESENCE IN URINE Negative Normal Negative [facility] Comment on above: Performed By: #### L [id number] #### [facility] ([facility]) [address] [place] [address] pH (U) 5.0 [pH] Normal 5.0-8.0 [facility] Comment on above: Performed By: #### L [id number] #### [facility] ([facility]) [address] [place] [address] Protein (U) [Mass/Vol] Negative Normal Negative [facility] Comment on above: Performed By: #### L [id number] #### [facility] (BEAKER) [address] [place] [address] Specific gravity (U) [Rel density] 1.015 Normal 1.015-1.020 [facility] Comment on above: Performed By: #### L [id number] #### [facility] ([facility]) [address] [place] [address] URINE CULTURE, ROUTINEon Bacteria identified Cx Nom (U) 10,000 - 50,000 CF/ML Uro-Genital Quintin Normal [facility] Comment on above: Performed By: #### L [id number] ####[facility] ([place])[address] [place] [address] XR KNEE NADJA 3 Von 02-27-2023 XR KNEE NADJA 3 V EXAMINATION: XR KNEE NADJA 3 V HISTORY: Osteoarthritis of knee ; chronic bilateral knee pain COMPARISON: XR knee bilateral 04/20/2021 FINDINGS: RIGHT FINDINGS: BONES: Complete loss of the anterior, medial, lateral joint spaces with oncm-oi-tokz articulation and marked sclerosis. Lateral subluxation of the tibial plafond in relation to the femoral condyles. Large periarticular degenerative osteophytes involving all 3 compartments. SOFT TISSUES: No visible soft tissue swelling. OTHER: Large joint effusion. LEFT FINDINGS: BONES: Marked narrowing of the anterior, medial, lateral joint spaces with near mqch-zd-ubcm articulation and subchondral sclerosis. Prominent lateral subluxation of the tibial plafond in relation to the femoral condyles. Large periarticular degenerative osteophytes involving all 3 compartments. SOFT TISSUES: No visible soft tissue swelling. OTHER: Large joint effusion. IMPRESSION: RIGHT CONCLUSION: Advanced degenerative joint disease. LEFT CONCLUSION: Advanced degenerative joint disease. Electronically authenticated by: SHILA RICHARDS Date: 2023-02-27 16:24 Normal [facility] Office Visiton 01-28-2023 Follow-up visit [id number] Mignon Montanez 1945 F Date Provider Department Center 01/28/2023 3848-YENI UGALDE [facility] Family History Problem Relation Age of Onset Other Mother Other Mother Heart attack Father's Sister Family Status - Relation Status Age at Mother Father's Sister Level of Service:57910 [place] OFFICE/OUTPATIENT ESTABLISHED LOW [facility] 20-29 MIN Reason for Visit and Comments: Follow-up [[id number]] - 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 The karen schmidt was examined and there are no changes to the H&P Normal [facility] -- Attestation signed by Yeni Ugalde MD at 01/02/2023 10:00 AM H and P reviewed. No significant changes. Patient presenting with for eval of mitral regurg. Plan to proceed with cath and DENISE. Procedure was explained to patient at length and in detail. Risks, benefits, and alternatives were discussed. Patient is informed that risks of this invasive procedure include, but are not limited to, bleeding, hematoma, kidney injury, CVA, arrythmia requiring defibrillation, need for emergent open heart surgery, and . Patient understands these risks and wishes to proceed. Yeni Ugalde MD -- History Of Present Illness HPI Patientis a 77 yo female with a past medical history including chronic afib, hypertension, and LVH. Patient recently had an echocardiogram performed due to abnormal BNP on lab work. Echocardiogram demonstrated moderate to severe mitral regurgitation with RVSP of 76 mmHg. She was asked to follow up with Cardiology. Patient states that she has been doing well from a cardiac standpoint. She adamantly denies any chest pain or shortness of breath. She denies any signs/symptoms of decompensated heart failure. No lower extreme edema, orthopnea, paroxysmal nocturnal dyspnea. She states that she is active, she denies that she has any exertional symptoms. Plan for RHC/LHC today for better evaluation/management of her MR Past Medical History She has a past medical history of Atrial fibrillation (CMS/HCC), Hypertension, and Pulmonary hypertension (CMS/HCC). Surgical History She has a past surgical history that includes Cardioversion. Social History She reports that she has never smoked. She has never used smokeless tobacco. She reports that she does not currently use alcohol. She reports that she does not use drugs. Allergies Penicillins Medications Medications Prior to Admission Medication Sig Dispense Refill Last Dose apixaban (Eliquis) 5 mg tablet Take 1 tablet (5 mg) by mouth in the morning and at bedtime. (Patient taking differently: Take 5 mg by mouth in the morning and at bedtime.) 60 tablet 11 Past Week bisoprolol (Zebeta) 10 mg tablet Take 10 mg by mouth in the morning. 01/02/2023 celecoxib (CeleBREX) 200 mg capsule Take 200 mg by mouth in the morning and at bedtime. 01/02/2023 dilTIAZem (Cardizem) 60 mg immediate release tablet Take 30 mg by mouth in the morning and at bedtime. 01/02/2023 ferrous sulfate 325 (65 Fe) MG tablet Take 65 mg by mouth in the morning and at bedtime. 01/01/2023 hydrALAZINE (Apresoline) 100 mg tablet Take 50 mg by mouth in the morning and at bedtime. 01/02/2023 hydroCHLOROthiazide (HYDRODiuril) 50 mg tablet Take 25 mg by mouth in the morning. 01/01/2023 sacubitriL-valsartan (Entresto) 24-26 mg tablet Take 1 tablet by mouth in the morning and at bedtime. 01/02/2023 Review of Systems 14 points of review of system are unremarkable except what mentioned in HPI Physical Exam general appearance: Not in acute distress HEENT: Anicteric, atraumatic, no hearing loss, normal range of motion of extraocular muscles Lungs: Good bilateral air entry, no wheezes, no crackles Heart: Regular rhythm, normal S1, S2, no murmur, no JVD, no friction rub Abdomen: Soft nondistended, audible bowel sounds, no tenderness no organomegaly Extremities: No edema, no cyanosis Neurology: Motor power grossly intact, cranial nerve II through XII intact, intact sensation Psychiatry: Normal mood and affect Skin: No rash no ulcers Last Recorded Vitals Blood pressure 118/61, pulse 57, resp. rate 16, SpO2 96 %. Relevant Results Component Ref Range & Units 7 d ago (12/26/22) 2 mo ago (10/29/22) 2 mo ago (10/29/22) WBC 5.6 6.4 RBC (0/HPF) 3.16 Hemoglobin 10.1 10.3 Hematocrit (client supplied) 31.8 Platelets 165 198 Glucose mg/dL 97 BUN, Bld 42 38 Creatinine 1.84 1.53 Calcium 11.1 Assessment/Plan Principal Problem: Abnormal stress test Moderate to Severe MR Plan for DENISE and R/L/Cors today for better evaluation/management Chronic atrial fibrillation (CMS/HCC) On Eliquis for stroke prophylaxis Heart rate well controlled continue bisprolol and diltiazem Hypertensive disorder Continue current medication regimen. Bp well controlled per patient. Pulmonary hypertension (CMS/HCC) RVSP 76 mm Hg however she denies any symptoms Plan for RHC Palpitations Admits occasional palpitations but states is no worse than usual continue all medications Bartolo Ortiz MD back tender paper machine, PGY-5 Normal [facility] CBC AUTO DIFFon 12-26-2022 BASO # 0.0 103/ul Normal 0.0-0.1 [facility] ospital Comment on above: Performed By: #### C BC ####[facility] [address] [place] [address]DrMacey Bustamante Basophils/100 WBC (Bld) 0.5 % Normal 0.2-2.0 [facility] Comment on above: Performed By: #### C BC ####[facility] [address] [place] [address]DrMacey Bustamante EO # 0.2 103/ul Normal 0.0-0.7 [facility] ospital Comment on above: Performed By: #### C BC ####[facility] [address]qn[address] [place] [id number] Bustamante Eosinophils/100 WBC (Bld) 3.2 % Normal 0.9-7.0 [facility] Comment on above: Performed By: #### C BC ####[facility] [address]isdrs[address] [place] [address]Dr. Malia Bustamante Erythrocyte distribution wid th (RBC) [Ratio] 13.5 % Normal 11.0-15.0 The [facility] Comment on above: Performed By: #### C BC ####[facility] [address] [place], [place] [address]Dr. Malia Bustamante Hematocrit (Bld) [Volume fraction] 31.8 % Critically low 36.0-48.0 The [facility] Comment on above: Performed By: #### C BC ####[facility] [address] [place], [place] [address]Dr. Malia Bustamante Hemoglobin (Bld) [Mass/Vol] 10.1 g/dL Critically low 12.0 -16.0 [facility] Comment on above: Performed By: #### C BC ####[facility] [address] [place], [place] [address]Dr. Malia Bustamante IG # 0.02 10e3/ul Normal 0.00-0.03 [facility] Comment on above: Performed By: #### C BC ####[facility] [address] [place], [place] [address]Dr. Malia Bustamante IG % 0.4 % Normal 0.0-0.5 [facility] ospital Comment on above: Performed By: #### C BC ####[facility] T[address] [place], [place] [address]Dr. Malia Bustamante LYMPH # 0.8 103/ul Critically low 1.2-3.8 The [facility] Comment on above: Performed By: #### C BC ####[facility] [address] [place], [place] [address]Dr. Malia Bustamante Lymphocytes/100 WBC (Bld) 13.8 % Critically low 20.5-6 0.0 [facility] Comment on above: Performed By: #### C BC ####[facility] [address] [place] [id number]. Malia Bustamante MANUAL DIFF REQ NO Normal [facility] Comment on above: Performed By: #### C BC ####[facility] [address] [place] [id number]. Malia Bustamante MCH (RBC) [Entitic mass] 32.0 pg Normal 26.7-34.0 [facility] Comment on above: Performed By: #### C BC ####[facility] [address] [place] [address]Dr. Malia Bustamante MCHC (RBC) [Mass/Vol] 31.8 g/dL Normal 29.9-35.2 [facility] Comment on above: Performed By: #### C BC ####[facility] [address] [place] [address]Dr. Malia Robby MCV (RBC) [Entitic vol] 100.6 fL Critically high 81.0-99 .0 [facility] Comment on above: Performed By: #### C BC ####[facility] [address] [place], [place] [address]Dr. Malia Robby MONO # 0.4 103/ul Normal 0.3-0.8 [facility] Comment on above: Performed By: #### C BC ####[facility] [address] [place], [place] [address]Dr. Flakitatahir Bustamante Monocytes/100 WBC (Bld) 7.9 % Normal 1.7-12.0 [facility] Comment on above: Performed By: #### C BC ####[facility] [address]req[address] [place], [place] [address]Dr. Flakitatahir Robby NEUT # 4.2 103/ul Normal 1.4-6.5 [facility] Comment on above: Performed By: #### C BC ####[facility] [address] [place], [place] [address]Dr. Malia Bustamante Neutrophils/100 WBC (Bld) 74.2 % Normal 43.0-75.0 [facility] Comment on above: Performed By: #### C BC ####[facility] [address] [place] [id number]. Malia Bustamante Platelet mean volume (Bld) [ Entitic vol] 11.2 fL Normal 9.5-13.5 The [facility] pital Comment on above: Performed By: #### C BC ####[facility] [address] [place] [address]Dr. Malia Bustamante PLT 165 103/ul Normal 150-450 [facility] ospital Comment on above: Performed By: #### C BC ####[facility] [address]hr[address] [place] [address]Dr. Malia Bustamante RBC 3.16 106/ul Critically low 4.20-5.40 [facility] Comment on above: Performed By: #### C BC ####[facility] [address] [place], [place] [address]Dr. Malia Bustamante WBC 5.6 103/ul Normal 4.0-11.0 [facility] ospital Comment on above: Performed By: #### C BC ####[facility] [address] [place], [place] [address]Dr. Malia Bustamante PROF CHEM 8 (BAS METB)on Anion gap [Moles/Vol] 16.3 mmol/L Normal [facility] Comment on above: Performed By: #### B MP ####[facility] [address]ib[address] [place], [place] [address]Dr. Malia Bustamante Calcium [Mass/Vol] 11.1 mg/dL Critically high 8.5-10.1 [facility] Comment on above: Performed By: #### B MP ####[facility] [address] [place], [place] [address]Dr. Malia Bustamante Chloride [Moles/Vol] 113 mmol/L Critically high 98-107 [facility] Comment on above: Performed By: #### B MP ####[facility] [address] [place], [place] [address]Dr. Malia Bustamante CO2 [Moles/Vol] 22.9 mmol/L Normal 21.0-32.0 The [facility] Comment on above: Performed By: #### B MP ####[facility] [address] [place] [id number]. Malia Bustamante Creatinine [Mass/Vol] 1.84 mg/dL Critically high 0.55-1.02 [facility] Comment on above: Performed By: #### B MP ####[facility] Rs[address]keni[address] [place] [id number]. Malia Robby EGFR-AF SWISS 32 mL/min/1.73m2 Critically low >=60 [facility] [facility] Comment on above: Performed By: #### B MP ####[facility] [address] [id number]. Flakitatahir Robby EGFR-NON AF SWISS 27 mL/min/1.73m2 Critically low >=60 [facility] Comment on above: Performed By: #### B MP ####[facility] [address] [id number]. Malia Bustamante Glucose [Mass/Vol] 97 mg/dL Normal 74-106 [facility] Comment on above: Performed By: #### B MP ####[facility] [address] [id number]. Malia Bustamante Potassium [Moles/Vol] 5.2 mmol/L Critically high 3.5-5.1 [facility] Comment on above: Performed By: #### B MP ####[facility] [address] [id number]. Malia Bustamante Sodium [Moles/Vol] 147 mmol/L Critically high 136-145 [facility] Comment on above: Performed By: #### B MP ####[facility] [address] [id number]. Malia Bustamante Urea nitrogen [Mass/Vol] 42.0 mg/dL Critically high 7.0-18 .0 [facility] Comment on above: Performed By: #### B MP ####[facility] [address] [id number]. Malia Bustamante Urea nitrogen/Creatinine [Mass ratio] 22.8 mg/mg Normal [facility] Comment on above: Performed By: #### B MP ####[facility] [address] [id number]. Malia Bustamante US KIDNEYS BLADDERon 12-08-2 023 US KIDNEYS BLADDER US KIDNEYS BLADDER EXAM DATE: 12/08/2022 6:55 AM MST COMPARISON: None available. INDICATION: Chronic kidney disease. TECHNIQUE: Real-time ultrasound scanning of the kidneys and bladder was performed by the abrasive water jet cutter operator. Filtering Machine Tender Helper static images are submitted for review. FINDINGS: Right Kidney: The right kidney measures 9.1 x 4.8 x 4.4 cm and has a volume of 99 mL. No hydronephrosis. No shadowing calculi. No obvious contour deforming lesion or solid renal mass. Renal cortex measures 1 cm. Left Kidney: The left kidney measures 8.8 x 5 x 4.8 cm and has a volume of 111 mL. No hydronephrosis. No shadowing calculi. No obvious contour deforming lesion or solid renal mass. Renal cortex measures 1.1 cm. Bladder: Bladder volume measures up to 11.6 mL. Incomplete distention limits evaluation.Bilateral ureteral jets are visualized. IMPRESSION: 1. No hydronephrosis. 2. Bilateral ureteral jets are visualized. Electronically authenticated by: PAMELA PECK Date: 2022-12-08 13:20 Normal [facility] l CULTURE URINEon 12-01-2022 CULTURE URINE Culture Observations : LIGHT GROWTH OF MIXED GENITAL QUINTIN. NO POTENTIAL PATHOGENS SEEN. Normal The [facility] ospital Comment on above: Performed By: #### U RCX ####[facility] [address] [address]Dr. Malia Bustamante MICROALBUMIN, RAND URon 03-0 mALB 1.7 mg/L Normal <=30.0 [facility] ospital Comment on above: Performed By: #### M ALBR ####[facility] [address] [address]Dr. Malia Bustamante UA RANDOM W/MICROSCOPICon BACTERIA NONE SEEN Normal NONE SEEN [facility] ospital Comment on above: Performed By: #### U AMIC ####[facility] [address] [address]Dr. Flakitatahir Bustamante Bilirubin Ql (U) Negative Normal NEGATIVE The [facility] Comment on above: Performed By: #### U AMIC ####[facility] [address] [place], [place] [address]Dr. Flakitatahir Bustamante CAST NONE SEEN Normal NONE SEEN The [facility] ospital Comment on above: Performed By: #### U AMIC ####[facility] [address] [place], [place] [address]Dr. Flakitatahir Bustamante Clarity (U) CLEAR Normal CLEAR [facility] Comment on above: Performed By: #### U AMIC ####[facility] [address] [place], [place] [address]Dr. Flakitatahir Bustamante Color (U) LT. YELLOW Normal YELLOW The [facility] ostal Comment on above: Performed By: #### U AMIC ####[facility] [address] [place], [place] [address]Dr. Malia Bustamante Crystals LM Nom (Urine sed) NONE SEEN Normal NONE SEE N [facility] Comment on above: Performed By: #### U AMIC ####[facility] [address] [place], [place] [address]Dr. Malia Bustamante Epithelial cells LM Ql (Urine sed) FEW Abnormal N ONE SEEN /RARE [facility] Comment on above: Performed By: #### U AMIC ####[facility] [address] [place], [place] [address]Dr. Malia Bustamante Glucose Ql (U) Negative Normal NEGATIVE [facility] Comment on above: Performed By: #### U AMIC ####[facility] W[address] [place], [place] [address]Dr. Malia Bustamante Hemoglobin Ql (U) Negative Normal NEGATIVE The [facility] Comment on above: Performed By: #### U AMIC ####[facility] Q[address]zon[address] [place], [place] [address]Dr. Malia Bustamante Ketones Ql (U) Negative Normal NEGATIVE [facility] Comment on above: Performed By: #### U AMIC ####[facility] [address] [place] [address]Dr. Malia Bustamante LEUKOCYTES Negative Normal NEGATIVE The [facility] ospital Comment on above: Performed By: #### U AMIC ####[facility] [address] [place], [place] [address]Dr. Malia Bustamante MUCOUS NONE SEEN Normal NONE SEEN [facility] ospital Comment on above: Performed By: #### U AMIC ####[facility] [address] [place], [place] [address]Dr. Malia Bustamante Nitrite Ql (U) Negative Normal NEGATIVE [facility] Comment on above: Performed By: #### U AMIC ####[facility] F[address] [place], [place] [address]Dr. Malia Bustamante pH (U) 5.5 [pH] Normal 5-9 [facility] ospital Comment on above: Performed By: #### U AMIC ####[facility] [address] [place], [place] [address]Dr. Malia Bustamante RBC NONE SEEN Abnormal 0-2 [facility] ostal Comment on above: Performed By: #### U AMIC ####[facility] [address] [place], [place] [address]Dr. Malia Bustamante SPEC GRAVITY 1.020 Normal 1.005-<=1.025 The [facility] Comment on above: Performed By: #### U AMIC ####[facility] [address] [place], [place] [address]Dr. Malia Bustamante UA PROTEIN Negative Normal NEGATIVE/ TRACE [facility] Comment on above: Performed By: #### U AMIC ####[facility] [address] [place], [place] [address]Dr. Malia Bustamante Urobilinogen Qn (U) 0.2 {Álvaro'U}/dL Normal 0.2 - 1. 0 [facility] Comment on above: Performed By: #### U AMIC ####[facility] [address] [place], [place] [address]Dr. Flakitatahir Bustamante WBC NONE SEEN Normal NONE SEEN The [facility] ospital Comment on above: Performed By: #### U AMIC ####[facility] [address] [place], [place] [address]Iy. Malia Bustamante Orders Onlyon 11-14-2022 Orders Only [id number] Mignon Montanez E 1945 F Date Provider Department Center 11/14/2022 JOSLYN CORNEJO [facility] Family History Problem Relation Age of Onset Other Mother Other Mother Heart attack Father's Sister Family Status - Relation Status Age at Mother Father's Sister Normal [facility] Office Visiton 11-07-2022 Follow-up visit [id number] Mignon Montanez n E 1945 F Date Provider Department Center 11/07/2022 YENI GARCIA [facility] Family History Problem Relation Age of Onset Other Mother Other Mother Heart attack Father's Sister Family Status - Relation Status Age at Mother Father's Sister Level of Service:29836 [place] OFFICE/OUTPATIENT ESTABLISHED MOD MDM 30-39 MIN Normal [facility] ECHOCARDIO M/2D COMPLETEon 0 11-01-2022 ECHOCARDIO M/2D COMPLETE Patient: LIZABETH MONTANEZ Exam Date: 11/01/2022 : 1945 Gender:F Ordering : DR ISAK BONE . Admission #: [id number] Family : Order #: [id number] CLICK HERE TO VIEW EXAM ECHOCARDIOGRAM REPORT PROCEDURE: CARDIO PULMONARY ECHOCARDIO M/2D COMP INDICATIONS: Elevated BNP, atrial fibrillation, hypertension, shortness of breath COMPARISON: None. DESCRIPTION: COMPLETE ECHOCARDIOGRAM Real-time transthoracic echocardiography with 2D, M-mode, spectral and color flow Doppler performed. QUALITY: Technical quality was good. 65 200# BP 136/72 LEFT VENTRICLE: Normal chamber size. Normal left ventricular wall thickness. LV EF: Normal left ventricular ejection fraction, (>55%). DIASTOLIC: Not adequately assessed due to heart rhythm. ATRIAL SEPTUM: Visually appears intact. LEFT ATRIUM: Severe dilatation. RIGHT ATRIUM: Severe dilatation. RIGHT VENTRICLE: Normal chamber size. Normal right ventricular systolic function. TRICUSPID VALVE: Normal mobility and thickness. No stenosis with mild regurgitation. Doppler studies reveal severely (>60) elevated right sided pressures. RSVP 76 mmHg MITRAL VALVE: Mildly thickened with normal mobility. No evidence of mitral valve stenosis. Mild mitral annular calcification. Moderate to severe mitral regurgitation. AORTIC VALVE: Normal trileaflet appearance. Mildly calcified aortic valve. Mildly diminished mobility. Doppler velocity suggest mild aortic valve stenosis. DVI 0.5, KELLY 1.6 cm2. Mild to moderate aortic regurgitation. AORTIC ROOT: Normal diameter and appearance. PULMONIC VALVE: Normal thickness and mobility. No stenosis. Trivial regurgitation. PERICARDIUM: Anterior free space; trivial effusion versus fat pad. IVC: IVC is dilated (2.5 cm) with no collapse. CONCLUSION: 1. Global left ventricular systolic function is normal; visually estimated ejection fraction is 55 to 60%. 2. No significant wall motion abnormalities. 3. Severe biatrial enlargement. 4. The right ventricle is normal in size and systolic function. 5. Mild tricuspid regurgitation. 6. Severely elevated right-sided pressures; RVSP 76 mmHg. 7. Moderate to severe mitral regurgitation. 8. Mild aortic valve stenosis. 9. Mild to moderate aortic valve regurgitation. 10. Anterior free space; trivial effusion versus fat pad. Adult Echocardiography Procedure Report Left Ventricle LVEDD (3.7 - 5.6 cm): 5.23 cm LVESD (2.2 - 4.0 cm): 3.59 cm LVIVS thickness (0.6 - 1.2 cm): 0.85 cm LVPW thickness (0.5 - 1.0 cm): 0.85 cm LVOT Max Gradient: 3.82 mm[Hg], 3.96 mm[Hg] Peak Velocity (LVOT): 0.98 m/s, 0.99 m/s Mean Velocity (LVOT): 0.64 m/s, 0.66 m/s LVOT Diameter 2.04 cm Left Ventricular Ejection Fraction: 58.64 %, 58.64 % Left Atrium LA Volume Index (2D A2C): 195.19 ml, 195.19 ml Left Atrium Systolic Dimension: 5.28 cm Mitral Valve Mitral Valve E-Wave Peak Velocity: 1.37 m/s, 1.20 m/s Right Ventricle Aorta AO Root Diam: 3.08 cm Aortic Valve AoV Area (Peak Richar): 1.63 cm2, 1.55 cm2, 1.72 cm2 AoV Area (VTI): 1.67 cm2, 1.76 cm2, 1.58 cm2 Peak Velocity(Antegrade Flow): 2.05 m/s, 1.89 m/s Peak Gradient(Antegrade Flow): 16.88 mm[Hg], 14.24 mm[Hg] Mean Velocity(Antegrade Flow): 1.35 m/s, 1.29 m/s Mean Gradient(Antegrade Flow): 8.47 mm[Hg], 7.74 mm[Hg] Velocity Time Integral: 44.72 cm, 47.80 cm Tricuspid Valve Peak Velocity (Regurgitant Flow): 3.64 m/s, 3.91 m/s Pulmonic Valve Peak Velocity: 1.20 m/s, 1.06 m/s Peak Gradient: 5.77 mm[Hg], 4.48 mm[Hg] Right Atrium Right Atrium Systolic Pressure: 96.18 ml, 96.18 ml Dictated by: Radha Poole M.D. on 11/02/2022 at 11:21 Approved by: Radha Poole M.D. on 11/02/2022 at 11:25 Normal [facility] INSULINon 10-30-2022 Insulin 11.5 uIU/mL Normal 2.6-24.9 [facility] Comment on above: Performed By: #### I NSULIN #### [facility] [address] [place] [address] Dr. Malia Bustamante BNPon 10-29-2022 Natriuretic peptide B (Bld) [Mass/Vol] 4315.0 pg/mL Critically high <=1,800.0 [facility] spital Comment on above: Performed By: #### L IPID, CMP, TSH, T7, BNP #### [facility] [address] [place] [address] Dr. Malia Bustamante CBC AUTO DIFFon 10-29-2022 BASO # 0.0 103/ul Normal 0.0-0.1 [facility] Comment on above: Performed By: #### C BC #### [facility] [address] [place] [address] Dr. Malia Bustamante Basophils/100 WBC (Bld) 0.6 % Normal 0.2-2.0 [facility] Comment on above: Performed By: #### C BC #### [facility] [address] [place] [address] Dr. Malia Bustamante EO # 0.1 103/ul Normal 0.0-0.7 [facility] ospital Comment on above: Performed By: #### C BC #### [facility] [address] [place] [address] Dr. Malia Bustamante Eosinophils/100 WBC (Bld) 1.6 % Normal 0.9-7.0 [facility] Comment on above: Performed By: #### C BC #### [facility] [address] [place] [address] Dr. Malia Bustamante Erythrocyte distribution wid th (RBC) [Ratio] 13.1 % Normal 11.0-15.0 The [facility] Comment on above: Performed By: #### C BC #### [facility] [address] [place] [address] Dr. Malia Bustamante Hematocrit (Bld) [Volume fraction] 31.3 % Critically low 36.0-48.0 The [facility] Comment on above: Performed By: #### C BC #### [facility] [address] [place] [address] Dr. Malia Bustamante Hemoglobin (Bld) [Mass/Vol] 10.3 g/dL Critically low 12.0 -16.0 [facility] Comment on above: Performed By: #### C BC #### [facility] [address] [place] [address] Dr. Malia Bustamante IG # 0.03 10e3/ul Normal 0.00-0.03 [facility] Comment on above: Performed By: #### C BC #### [facility] [address] [place] [address] Dr. Malia Bustamante IG % 0.5 % Normal 0.0-0.5 [facility] Comment on above: Performed By: #### C BC #### [facility] [address] [place] [address] Dr. Malia Bustamante LYMPH # 0.7 103/ul Critically low 1.2-3.8 [facility] Comment on above: Performed By: #### C BC #### [facility] [address] [address] [address] Malia Bustamante Lymphocytes/100 WBC (Bld) 10.1 % Critically low 20.5-6 0.0 [facility] Comment on above: Performed By: #### C BC #### [facility] [address] [address] [address] Malia Bustamante MANUAL DIFF REQ NO Normal [facility] Comment on above: Performed By: #### C BC #### [facility] [address] [place] [address] Dr. Malia Bustamante MCH (RBC) [Entitic mass] 32.0 pg Normal 26.7-34.0 [facility] Comment on above: Performed By: #### C BC #### [facility] [address] [place] [address] Dr. Malia Bustamante MCHC (RBC) [Mass/Vol] 32.9 g/dL Normal 29.9-35.2 [facility] Comment on above: Performed By: #### C BC #### [facility] [address] [place] [address] Dr. Malia Bustamante MCV (RBC) [Entitic vol] 97.2 fL Normal 81.0-99.0 [facility] Comment on above: Performed By: #### C BC #### [facility] [address] [place] [address] Dr. Malia Bustamante MONO # 0.5 103/ul Normal 0.3-0.8 [facility] ostal Comment on above: Performed By: #### C BC #### [facility] [address] [place] [address] Dr. Malia Bustamante Monocytes/100 WBC (Bld) 7.3 % Normal 1.7-12.0 [facility] Comment on above: Performed By: #### C BC #### [facility] [address] [place] [address] Dr. Malia Bustamante NEUT # 5.2 103/ul Normal 1.4-6.5 [facility] Comment on above: Performed By: #### C BC #### [facility] [address] [place] [address] Dr. Malia Bustamante Neutrophils/100 WBC (Bld) 79.9 % Critically high 43.0- 75.0 [facility] Comment on above: Performed By: #### C BC #### [facility] [address] [place] [address] Dr. Malia Bustamante Platelet mean volume (Bld) [ Entitic vol] 11.4 fL Normal 9.5-13.5 The [facility] pital Comment on above: Performed By: #### C BC #### [facility] [address] [place] [address] Dr. Malia Bustamante PLT 198 103/ul Normal 150-450 [facility] ospital Comment on above: Performed By: #### C BC #### [facility] [address] [place] [address] Dr. Malia Bustamante RBC 3.22 106/ul Critically low 4.20-5.40 [facility] Comment on above: Performed By: #### C BC #### [facility] [address] [place] [address] Dr. Malia Bustamante WBC 6.4 103/ul Normal 4.0-11.0 [facility] ospital Comment on above: Performed By: #### C BC #### [facility] [address] [place] [address] Dr. Malia Bustamante FREE THYROXINE INDEX T7on FTI 3.26 Normal 1.30-4.50 [facility] ospital Comment on above: Performed By: #### L IPID, CMP, TSH, T7, BNP #### [facility] [address] [place] [address] Dr. Malia Bustamante T3U 35.0 % Normal 30.0-39.0 [facility] Comment on above: Performed By: #### L IPID, CMP, TSH, T7, BNP #### [facility] [address] [place] [address] Dr. Malia Bustamante T4 [Mass/Vol] 9.30 ug/dL Normal 4.80-13.90 The [facility] Comment on above: Performed By: #### L IPID, CMP, TSH, T7, BNP #### [facility] [address] [address] [address] Malia Bustamante GLYCOHEMOGLOBIN A1Con 2022 ADA RECOMMENDATION SEE BELOW Normal [facility] Comment on above: Result Comment: ADA RECOMMENDED LIMIT 4.0 - 6.0 ADA THERAPEUTIC TARGET < 7.0 ACTION SUGGESTED > 7.0 Performed By: #### A 1C #### [facility] [address] [address] [address] Malia Bustamante Glucose [Mass/Vol] 97 mg/dL Normal [facility] Comment on above: Performed By: #### A 1C #### [facility] [address] [address] [address] Malia Bustamante HbA1c (Bld) [Mass fraction] 5.0 % Normal 4.5-6.2 [facility] Comment on above: Performed By: #### A 1C #### [facility] [address] [address] [address] Malia Bustamante IRONon 10-29-2022 Iron [Mass/Vol] 78.0 ug/dL Normal 50.0-170.0 [facility] Comment on above: Performed By: #### I KUN BLUE ####[facility] [address] [address]Dr. Malia Bustamante LIPID PROFILEon 10-29-2022 CHOL-HDL RATIO NORM SEE BELOW Normal [facility] Comment on above: Result Comment: 3.3 - 4.4 LOW RISK 4.4 - 7.1 AVERAGE RISK 7.1 - 11.0 MODERATE RISK >11.0 HIGH RISK Performed By: #### L IPID, CMP, TSH, T7, BNP #### [facility] [address] [address] [address] Malia Bustamante Cholesterol [Mass/Vol] 131 mg/dL Normal <=[address] [facility] Comment on above: Performed By: #### L IPID, CMP, TSH, T7, BNP #### [facility] [address] [address] [address] Malia Bustamante Cholesterol in HDL [Mass/Vol] 51 mg/dL Normal 40-60 [facility] Comment on above: Performed By: #### L IPID, CMP, TSH, T7, BNP #### [facility] [address] [address] [address] Malia Bustamante Cholesterol in LDL [Mass/Vol] 59.0 mg/dL Normal [facility] Comment on above: Performed By: #### L IPID, CMP, TSH, T7, BNP #### [facility] [address] [address] [address] Malia Bustamante Cholesterol.total/Cholestero l in HDL [Mass ratio] 2.6 {ratio} Normal The [facility] Comment on above: Performed By: #### L IPID, CMP, TSH, T7, BNP #### [facility] [address] [address] [address] Malia Bustamante HDL NORMAL > or = 60 mg/dl - LO W CARDIOVASCULAR RISK <40 mg/dl - HIGH CARDIOVASCULAR RISK Normal [facility] Comment on above: Performed By: #### L IPID, CMP, TSH, T7, BNP #### [facility] [address] [address] [address] Malia Bustamante LDL CALC NORMAL SEE BELOW Normal [facility] Comment on above: Result Comment: <100 mg/dl OPTIMAL 100 - 129 mg/dl NEAR OR ABOVE OPTIMAL 130 - 159 mg/dl BORDERLINE HIGH 160 - 189 mg/dl HIGH >190 mg/dl VERY HIGH Performed By: #### L IPID, CMP, TSH, T7, BNP #### [facility] [address] [address] [address] Malia Bustamante Triglyceride [Mass/Vol] 105 mg/dL Normal <=150 T [facility] Comment on above: Performed By: #### L IPID, CMP, TSH, T7, BNP #### [facility] [address] [address] [address] Malia Bustamante VLDL CALC 21.0 mg/dL Normal [facility] Comment on above: Performed By: #### L IPID, CMP, TSH, T7, BNP #### [facility] [address] [place] [address] Dr. Malia Bustamante PROF 14(COMP METB)on 023 Albumin [Mass/Vol] 3.8 g/dL Normal 3.4-5.0 [facility] Comment on above: Performed By: #### L IPID, CMP, TSH, T7, BNP #### [facility] [address] [place] [address] Dr. Malia Bustamante Albumin/Globulin [Mass ratio] 1.2 {ratio} Normal [facility] Comment on above: Performed By: #### L IPID, CMP, TSH, T7, BNP #### [facility] [address] [place] [address] Dr. Malia Bustamante ALP [Catalytic activity/Vol] 53 U/L Normal 46-116 [facility] Comment on above: Performed By: #### L IPID, CMP, TSH, T7, BNP #### [facility] [address] [place] [address] Dr. Malia Bustamante ALT [Catalytic activity/Vol] 16 U/L Normal 14-59 [facility] Comment on above: Performed By: #### L IPID, CMP, TSH, T7, BNP #### [facility] [address] [place] [address] Dr. Malia Bustamante Anion gap [Moles/Vol] 15.0 mmol/L Normal [facility] Comment on above: Performed By: #### L IPID, CMP, TSH, T7, BNP #### [facility] [address] [place] [address] Dr. Malia Bustamante AST [Catalytic activity/Vol] 18 U/L Normal 15-37 [facility] Comment on above: Performed By: #### L IPID, CMP, TSH, T7, BNP #### [facility] [address] [place] [address] Dr. Malia Bustamante Bilirubin [Mass/Vol] 0.4 mg/dL Normal 0.2-1.0 [facility] Comment on above: Performed By: #### L IPID, CMP, TSH, T7, BNP #### [facility] [address] [place] [address] Dr. Malia Bustamante Calcium [Mass/Vol] 10.3 mg/dL Critically high 8.5-10.1 [facility] Comment on above: Performed By: #### L IPID, CMP, TSH, T7, BNP #### [facility] [address] [place] [address] Dr. Malia Bustamante Chloride [Moles/Vol] 110 mmol/L Critically high 98-107 [facility] Comment on above: Performed By: #### L IPID, CMP, TSH, T7, BNP #### [facility] [address] [place] [address] Dr. Malia Bustamante CO2 [Moles/Vol] 21.6 mmol/L Normal 21.0-32.0 [facility] Comment on above: Performed By: #### L IPID, CMP, TSH, T7, BNP #### [facility] [address] [place] [address] Dr. Malia Bustamante Creatinine [Mass/Vol] 1.53 mg/dL Critically high 0.55-1.02 [facility] Comment on above: Performed By: #### L IPID, CMP, TSH, T7, BNP #### [facility] [address] [place] [address] Dr. Malia Bustamante EGFR-AF SWISS 40 mL/min/1.73m2 Critically low >=60 [facility] Comment on above: Performed By: #### L IPID, CMP, TSH, T7, BNP #### [facility] [address] [place] [address] Dr. Malia Bustamante EGFR-NON AF SWISS 33 mL/min/1.73m2 Critically low >=60 [facility] Comment on above: Performed By: #### L IPID, CMP, TSH, T7, BNP #### [facility] [address] [place] [address] Dr. Malia Bustamante Globulin (S) [Mass/Vol] 3.2 g/dL Normal [facility] Comment on above: Performed By: #### L IPID, CMP, TSH, T7, BNP #### [facility] [address] [place] [address] Dr. Malia Bustamante Glucose [Mass/Vol] 106 mg/dL Normal 74-106 [facility] Comment on above: Performed By: #### L IPID, CMP, TSH, T7, BNP #### [facility] [address] [place] [address] Dr. Malia Bustamante Potassium [Moles/Vol] 4.6 mmol/L Normal 3.5-5.1 [facility] Comment on above: Performed By: #### L IPID, CMP, TSH, T7, BNP #### [facility] [address] [place] [address] Dr. Malia Bustamante Protein [Mass/Vol] 7.0 g/dL Normal 6.4-8.2 [facility] Comment on above: Performed By: #### L IPID, CMP, TSH, T7, BNP #### [facility] [address] [place] [address] Dr. Malia Bustamante Sodium [Moles/Vol] 142 mmol/L Normal 136-145 [facility] Comment on above: Performed By: #### L IPID, CMP, TSH, T7, BNP #### [facility] [address] [place] [address] Dr. Malia Bustamante Urea nitrogen [Mass/Vol] 38.0 mg/dL Critically high 7.0-18 .0 [facility] Comment on above: Performed By: #### L IPID, CMP, TSH, T7, BNP #### [facility] [address] [place] [address] Dr. Malia Bustamante Urea nitrogen/Creatinine [Mass ratio] 24.8 mg/mg Normal [facility] Comment on above: Performed By: #### L IPID, CMP, TSH, T7, BNP #### [facility] [address] [place] [address] Dr. Malia Bustamante TSHon 10-29-2022 TSH 2.124 uIU/mL Normal 0.358-3.740 [facility] Comment on above: Performed By: #### L IPID, CMP, TSH, T7, BNP #### [facility] [address] [address] [address] Malia Bustamante VITAMIN D 25 OHon 10-29-2022 VIT D 25-OH 69.6 ng/mL Normal [facility] Comment on above: Performed By: #### I MIRZA VITAD ####[facility] [id number] [address]Dr. Malia Bustamante VIT D RANGES SEE BELOW Normal [facility] Comment on above: Result Comment: <20 ng/mL Vit D deficient 20 - <30 ng/mL Vit D insufficient 30 - 100 ng/mL Vit D sufficient >100 ng/mL Potential Toxicity Performed By: #### I MIRZA VITAD ####[facility] [id number] [address]Dr. Malia Bustamante CALCIUMon 09-05-2022 Calcium [Mass/Vol] 10.5 mg/dL Critically high 8.5-10.1 [facility] Comment on above: Performed By: #### C [place] CREA ####[facility] [id number] [address]Dr. Malia Bustamante CREATININEon 09-05-2022 Creatinine [Mass/Vol] 1.60 mg/dL Critically high 0.55-1.02 [facility] Comment on above: Performed By: #### Joan Tyson, CREA ####[facility] [id number] [address]Dr. Malia Bustamante EGFR-AF SWISS 38 mL/min/1.73m2 Critically low >=60 [facility] Comment on above: Performed By: #### C [place], CREA ####[facility] [id number] [address]Dr. Malia Bustamante EGFR-NON AF SWISS 31 mL/min/1.73m2 Critically low >=60 [facility] Comment on above: Performed By: #### C [place], CREA ####[facility] [id number] [address]Dr. Malia Bustamante MG MAMM SCREEN 3D NADJA CADon 05-25-2022 MG MAMM SCREEN 3D NADJA CAD Patient: LIZABETH MONTANEZ Exam Date: 05/25/2022 : 1945 Gender:F Ordering : DR ISAK BONE . Admission #: [id number] Family : Order #: [id number] CLICK HERE TO VIEW EXAM RADIOLOGY REPORT PROCEDURE: MAMMOGRAM SCREENING 3D BILATERAL CAD COMPARISON: MG MAMM SCREEN NADJA W CAD, 11/13/2019. MG MAMM SCREEN NADJA W CAD, 10/28/2018. MG MAMM NADJA SCRN W CAD DIG, 06/26/2013. MG MAMM SCREEN 3D NADJA CAD, 04/28/2021. INDICATIONS: Screening mammography Calculator Name NCI Breast Cancer Risk Assessment Tool 5 Year Breast Cancer Risk 2.00% Lifetime Breast Cancer Risk 4.00% Personal Breast Cancer No Personal Ovarian Cancer No Treatments None Family Cancers Grandmother-paternal with breast cancer at age 60. LOCATION: [facility] BREAST COMPOSITION: Heterogeneously dense,which may obscure small masses. FINDINGS: DIAGNOSTIC CATEGORY 1--NEGATIVE. RIGHT BREAST: No significant suspicious finding. No significant change has occurred. LEFT BREAST: No significant suspicious finding. No significant change has occurred. RECOMMENDATIONS: ROUTINE MAMMOGRAM AND CLINICAL EVALUATION IN 12 MONTHS. PLEASE NOTE: A NORMAL MAMMOGRAM DOES NOT EXCLUDE THE POSSIBILITY OF BREAST CANCER. A CLINICALLY SUSPICIOUS PALPABLE LUMP SHOULD BE BIOPSIED. Dictated by: Shila Richards M.D. on 05/25/2022 at 14:13 Approved by: Shila Richards M.D. on 05/25/2022 at 14:19 Normal [facility] Encounters Encounter Date Encounter Type Care Provider Facility Start: 09-13-2023 End: 09-13-2023 ambulatory LILIA SERRATO [facility] Start: 08-29-2023 End: 08-30-2023 ambulatory [facility] Start: 07-25-2023 ambulatory [facility] Start: 07-12-2023 ambulatory [facility] Start: 07-12-2023 End: 07-16-2023 Evaluation and management of inpatient JOHNNIE [facility] Start: 06-27-2023 ambulatory [facility] Start: 06-27-2023 Encounter for preprocedural laboratory examination [facility] Start: 06-27-2023 ambulatory MYNOR GALLEGOS [facility] Start: 04-11-2023 End: 04-12-2023 ambulatory [facility] Start: 04-11-2023 End: 04-11-2023 ambulatory [facility] Start: 02-27-[address] ISAK Choudhury Facili ty:[facility] Start: 01-28-2023 End: 01-28-2023 ambulatory [facility] Start: 01-02-2023 ambulatory [facility] Start: 01-02-2023 End: 01-02-2023 ambulatory [facility] Start: 12-28-2022 [facility] Start: 12-26-2022 End: 12-27-2022 ambulatory YENI UGALDE Facility:[facility] Start: 12-26-2022 End: 12-27-2022 Encounter for other preprocedural examination [facility] Start: 12-08-2022 End: 12-09-[address] ISAK BONE . Facility:[facility] Start: 12-01-2022 End: 12-02-[address] SIAK BONE . Facility:[facility] Start: 11-07-2022 End: 11-07-[address] ISAK BONE . Facility:[facility] Start: 11-01-2022 End: 11-02-[address] ISAK BONE . Facility:[facility] Start: 10-29-2022 End: 10-30-[address] ISAK BONE . Facility:[facility] Start: 09-05-2022 End: 09-05-[address] ISAK BONE . Facility:[facility] Start: 05-25-2022 End: 05-26-[address] ISAK BONE . Facility:[facility] Start: 10-28-2017 Ambulatory [facility] Start: 06-06-2017 End: 06-07-2017 Ambulatory DEFAULT PHYSICIAN Facility:[facility] Procedures Date Procedure Procedure Detail Performing Clinician Start: 01-28-2023 Follow-up visit Follow-up NICKJUDAH FERGUSONDALI Payers Date Payer Category Payer Medicare [id number] 1958 Self-pay 1945 Unknown [id number] 2.16.84 [id number] 1945 Unknown [id number] 2.16.84 [id number] 1945 Unknown [id number] 2.16.84 [id number] 1945 Unknown [id number] 2.16.84 [id number] 1945 Unknown [id number] 2.16.84 [id number] 1945 Unknown [id number] 2.16.84 [id number] 1945 Unknown [id number] 2.16.84 [id number] 1945 Unknown [id number] 2.16.84 [id number] 1945 Unknown [id number] 2.16.84 [id number] Unknown Clinical Notes 11-07-2022 to 09-13-2023 Note Date & Type Note Facility 09-13-2023 Note Remains on Eliquis anticoagulation,Diltiazem- Rate is well-controlled Patient denied any bleeding tendencies [facility] 09-13-2023 Note Remained stable and blood pressure well-controlled today [facility] 09-13-2023 Note Mild to Mod MR on re cent DENISE Will continue to monitor with routine echocardiograms for any worsening in severity and routine follow-ups in office to monitor her symptoms [facility] 09-13-[address] able without any worsening symptoms or exacerbation [facility] 09-13-2023 Note [facility]TP CARDIOLOGY PROGR ESS NOTE HPI: Lizabeth Montanez is a 78 y.o. female here for routine f/U Patient here for 6 mo follow up mitral valve regurgitation, chronic afib, and pulmonary hypertension. Echo was done 3 weeks ago. Denies chest pain, SOB, lightheadedness/syncope, and bleeding on Eliquis. Recently had TKA in June and continues with PT for strengthening and ROM. Reports that overall from a heart perspective she is feeling well, and leg swelling is improving after knee surgery - she is wearing compression socks. Review of Systems Cardiovascular: Positive for leg swelling (s/p knee surgery) and palpitations ( not often ). Hematologic/Lymphatic: Bruises/bleeds easily. Musculoskeletal: Positive for arthritis, back pain and joint pain. All other systems reviewed and are negative. Visit Vitals BP 124/71 (BP Location: Left arm, Patient Position: Sitting) Pulse 70 Ht 1.676 m (5' 6 ) Wt 93 kg (205 lb) SpO2 98% BMI 33.09 kg/m??? OB Status Postmenopausal Smoking Status Never BSA 2.08 m??? Allergies Allergen Reactions Penicillins Medications: Current Outpatient Medications on File Prior to Visit Medication Sig Dispense Refill apixaban (Eliquis) 5 mg tablet Take 1 tablet (5 mg) by mouth in the morning and at bedtime. 60 tablet 0 bisoprolol (Zebeta) 10 mg tablet Take 10 mg by mouth in the morning. celecoxib (CeleBREX) 200 mg capsule Take 200 mg by mouth in the morning. dilTIAZem (Cardizem) 60 mg immediate release tablet Take 30 mg by mouth in the morning and at bedtime. ferrous sulfate 325 (65 Fe) MG tablet Take 65 mg by mouth with breakfast. hydrALAZINE (Apresoline) 100 mg tablet Take 50 mg by mouth in the morning and at bedtime. hydroCHLOROthiazide (HYDRODiuril) 50 mg tablet Take 50 mg by mouth once daily as directed. sacubitriL-valsartan (Entresto) 24-26 mg tablet Take 1 tablet by mouth in the morning and at bedtime. acetaminophen (Tylenol) 325 mg tablet Take 2 tablets (650 mg) by mouth every 6 (six) hours if needed for mild pain (1-3 pain score) or moderate pain (4-7 pain score) for up to 290 doses. No current facility-administered medications on file prior to visit. Physical Exam: Constitutional: Appearance: Normal appearance. Without apparent distress HENT: Head: Normocephalic and atraumatic. Nose: Nose normal. Mouth/Throat: Mouth: Mucous membranes are moist. Eyes: Extraocular Movements: Extraocular movements intact. Conjunctiva/sclera: Conjunctivae normal. Neck: Vascular: No JVD. Cardiovascular: Rate and Rhythm: Normal rate and regular rhythm. Pulses: Dorsalis pedis pulses are 3 on the right side and 3on the left side. Posterior tibial pulses are 3 on the right side and 3 on the left side. Heart sounds: Normal heart sounds, S1 normal and S2 normal. Pulmonary: Effort: Pulmonary effort is normal. Breath sounds: Normal breath sounds. Abdominal: General: Bowel sounds are normal. Palpations: Abdomen is soft. Musculoskeletal: General: Normal range of motion. Cervical back: Normal range of motion. Right lower le+ edema. Left lower le+ edema. Skin: General: Skin is warm and dry. Capillary Refill: Capillary refill takes less than 2 seconds. Neurological: General: No focal deficit present. Mental Status: She is alert and oriented to person, place, and time. Psychiatric: Mood and Affect: Mood normal. Behavior: Behavior normal. Thought Content: Thought content normal. Judgment: Judgment normal. Labs: 07/15/23 Component Ref Range & Units 2 mo ago (07/15/23) 2 mo ago (07/14/23) 2 mo ago (07/13/23) 2 mo ago (06/27/23) 8 mo ago (12/26/22) 10 mo ago (10/29/22) Auto WBC 4.00 - 10.60 10*3/uL 8.66 11.57 High 9.44 6.49 RBC 3.80 - 5.00 10*6/uL 2.31 Low 2.38 Low 2.58 Low 3.04 Low Hemoglobin 12.0 - 15.0 g/dL 7.5 Low 7.7 Low 8.4 Low 10.0 Low 10.1 R 10.3 R Hematocrit 36.0 - 48.0 % 24.1 Low 24.5 Low 27.0 Low 31.0 Low 31.8 R 31.3 Abnormal MCV 82.0 - 98.0 fL 104.3 High 102.9 High 104.7 High 102.0 High MCH 27.0 - 33.0 pg 32.5 32.4 32.6 32.9 MCHC 32.0 - 35.0 g/dL 31.1 Low 31.4 Low 31.1 Low 32.3 RDW 11.5 - 15.0 % 13.6 13.5 13.4 13.4 Platelets 150 - 400 10*3/uL 151 148 Low 147 Low 191 Component Ref Range & Units 2 mo ago (07/15/23) 2 mo ago (07/14/23) 2 mo ago (07/13/23) 2 mo ago (06/27/23) 8 mo ago (12/26/22) 10 mo ago (10/29/22) Sodium 136 - 145 mmol/L 133 Low 135 Low 138 140 142 R Potassium 3.5 - 5.1 mmol/L 4.1 4.7 4.5 5.2 High 4.6 R Chloride 98 - 107 mmol/L 110 High 109 High 111 High 113 High 110 R CO2 21 - 31 mmol/L 19 Low 21 19 Low 22 BUN 7 - 25 mg/dL 41 High 38 High 34 High 39 High Creatinine 0.60 - 1.20 mg/dL 1.68 High 1.66 High 1.47 High 1.71 High 1.84 R 1.53 R Glucose 70 - 100 mg/dL 87 100 167 High 98 97 R Calcium 8.6 - 10.3 mg/dL 9.0 9.4 10.0 11.5 High 11.1 R Anion Gap 7 - 20 mmol/L 8 10 13 10 eGFR >60.0 mL/min/1.73m*2 31.1 Low 31.6 Low CM 36.5 Low (more content not included)... [facility] 09-13-2023 Note Patient here for 6 m o follow up mitral valve regurgitation, chronic afib, and pulmonary hypertension. Echo was done 3 weeks ago. Denies chest pain, SOB, lightheadedness/syncope, and bleeding on Eliquis. Review of Systems Cardiovascular: Positive for leg swelling (s/p knee surgery) and palpitations ( not often ). Hematologic/Lymphatic: Bruises/bleeds easily. Musculoskeletal: Positive for arthritis, back pain and joint pain. All other systems reviewed and are negative. [facility] 08-29-2023 Note Orthopedic Surgery Subjective Chief complaint: Chief Complaint Patient presents with Left Knee - Pain L TKA Lizabeth Montanez is a 78 y.o. year old female presenting for follow-up of left knee arthroplasty performed on 07/12/23. The patient reports that she has had a significant improvement of her pain, and reports that her pain gets to a 3/10 at worst. The patient is taking Tylenol PRN, but is currently not taking any other medications. She is using compression stockings and has restarted her Eliquis following the procedure. The patient has a past medical history of atrial fibrillation. The patient denies any fevers, chills, chest pain, SOB, or palpitations. 08/29/2023 Patient is presenting today for follow up for her Left knee she is 6 weeks post op. She is doing very well, pain controlled, denied any fever or chills ,denied any redness hotness or inflammation and well healed incision. She is walking well with a walker and is satisfied with the results of surgey. She is accompanied by her and daughter, new X rays obtained today. Patient History Past Surgical History: Procedure Laterality Date CARDIOVERSION SECTION, LOW TRANSVERSE X3 KNEE ARTHRODESIS Left 07/12/2023 TONSILLECTOMY Past Medical History: Diagnosis Date Atrial fibrillation (CMS/HCC) Hypertension Left ventricular hypertrophy Nonrheumatic mitral valve regurgitation OA (osteoarthritis) Obesity Pulmonary hypertension (CMS/HCC) Review of Systems Constitutional: Negative. HENT: Negative. Cardiovascular: Negative. Gastrointestinal: Negative. Musculoskeletal: Negative for joint swelling and myalgias. Neurological: Negative. Psychiatric/Behavioral: Negative. Objective General: No acute distress, comfortable Respiratory: Unlabored breathing with normal rate, no cough Cardiovascular: Warm well perfused extremities Psych: Appropriate mood behavior Left Knee: Well healed incision of previous surgery , no redness hotness or inflammation, good ROM Left knee , 0-120, no instability, no dvt , intact N/V exam Left knee. Imaging personally reviewed: XR Left knee 3 views obtained today in clinic showed Left TKA in good alignment with no subsidence or migration. Imaging personally reviewed and interpreted by attending physician. Findings discussed with patient. Assessment/Plan Lizabeth Montanez is a 78 y.o. year old female presenting for follow-up s/p left knee arthroplasty done on 07/12/23. Overall doing very well and satisfied with the results of surgery. No primary diagnosis found. Plan: Continue WBAT LLE , continue PT ROM F/U in 2 months for reevaluation and to discuss the other knee , will obtain X rays of the right knee at this visit and will discuss replacing the Right knee [facility] 07-25-2023 Note Orthopedic Surgery Subjective Chief complaint: Chief Complaint Patient presents with Left Knee - Post-op 07/25/23 Lizabeth Montanez is a 78 y.o. year old female presenting for follow-up of left knee arthroplasty performed on 07/12/23. The patient reports that she has had a significant improvement of her pain, and reports that her pain gets to a 3/10 at worst. The patient is taking Tylenol PRN, but is currently not taking any other medications. She is using compression stockings and has restarted her Eliquis following the procedure. The patient has a past medical history of atrial fibrillation. The patient denies any fevers, chills, chest pain, SOB, or palpitations. Patient History Past Surgical History: Procedure Laterality Date CARDIOVERSION SECTION, LOW TRANSVERSE X3 KNEE ARTHRODESIS Left 07/12/2023 TONSILLECTOMY Past Medical History: Diagnosis Date Atrial fibrillation (CMS/HCC) Hypertension Left ventricular hypertrophy Nonrheumatic mitral valve regurgitation OA (osteoarthritis) Obesity Pulmonary hypertension (CMS/HCC) Review of Systems Constitutional: Negative. HENT: Negative. Cardiovascular: Negative. Gastrointestinal: Negative. Musculoskeletal: Positive for joint swelling and myalgias. Neurological: Negative. Psychiatric/Behavioral: Negative. Objective General: No acute distress, comfortable Respiratory: Unlabored breathing with normal rate, no cough Cardiovascular: Warm well perfused extremities Psych: Appropriate mood behavior Left Knee: Good ROM in extension and flexion. 4/5 strength in each. Joint line is palpable with notable medial subluxation of the femur. (-) a/p drawer tests (-) varus/valgus stress tests Imaging personally reviewed: XR KNEE 1-2 VIEWS LEFT 07/12/2023 1:34 PM CLINICAL INDICATIONS: Postop follow-up. Pain COMPARISON: 04/11/2023 IMPRESSION: Total knee arthroplasty has been performed. The femoral and tibial components are excellent in position. No acute complication is seen. Follow-up is planned Assessment/Plan Lizabeth Montanez is a 78 y.o. year old female presenting for follow-up s/p left knee arthroplasty done on 07/12/23. The patient reports that she is doing well and has been experiencing very minimal pain. No primary diagnosis found. Plan: Conitnue DVT prophylaxis and pain control -Outpatient physical therapy -Follow-up in 4 weeks and repeat XR of left knee. Return to Clinic in 4 weeks for follow-up Signed: Carrol Mercer, MS3 As the teaching physician, I have personally performed or re-performed the history of present illness, physical exam and medical decision-making activities of the encounter and verified the medical student's documentation. I made pertinent changes as necessary to ensure accurate documentation. Additional Comments: none I personally saw and examined the patient today Mynor Gallegos MD [facility] 07-17-2023 Note Spoke with patient r egarding her recent discharge from [facility] (07/16) as well as her procedure with Dr. Gallegos on 07/12. Patient states that she is getting adjusted to being back home, and states that she has been ambulating to her bedside commode with little issue. Patient also states that home health physical therapy has been set up and a physical therapist is scheduled to arrive at her house later today. Patient states that she has been taking the doxycycline as prescribed and denies any unusual drainage, major swelling, shortness of breath, chest pain, and/or fever at this time. Patient states that she is continuing to ice, elevate, and wear her compression stockings as advised. Patient was also able to confirm her post-operative appointment with Dr. Gallegos on 07/25. I provided my contact information and encouraged the patient to call if any questions/concerns arise in the meantime. [facility] 07-16-2023 Note Occupational Therapy Occupational Therapy Treatment Note Patient Name: Lizabeth Montanez Patient Date of : 1945 Today's Date: 07/16/23 Time in: 1052 Time Out: 1130 Total Time: 38 Active Ambulatory Problems Diagnosis Date Noted Chronic atrial fibrillation (CMS/HCC) 03/09/2008 Hypertensive disorder 03/15/2008 Left ventricular hypertrophy 03/09/2008 Obesity 03/24/2010 Palpitations 08/18/2013 Pulmonary hypertension (CMS/HCC) 06/15/2013 Nonrheumatic mitral valve regurgitation 11/07/2022 Abnormal stress test 12/20/2022 Localized osteoarthritis of left knee 04/16/2023 Resolved Ambulatory Problems Diagnosis Date Noted Warfarin therapy started 03/23/2008 Past Medical History: Diagnosis Date Atrial fibrillation (CMS/HCC) Hypertension OA (osteoarthritis) OT Received On 07/16/23 Subjective I don't know if I should go home or not. I had trouble doing the steps with PT Objective 1 Pt was up in chair at EOS Objective 2 OT Discharge Recommendation Home with assist vs [facility] OT Equipment Recommendations Shower chair General Pain 0 while at rest Pain Location Pain Comments Precautions: UE WB status bilateral, WBAT LE WB status bilateral, WBAT Cognition Orientation Oriented x4 Attention Span intact Memory intact Sequencing intact Problem Solving intact Other General Assessment Vision intact Hearing Intact Communication Intact Skin: No issues noted Edema: No issues noted Balance: Sitting Static Balance: Balance support RUE support, LUE support, Unilateral UE Support, No UE Support, Feet Supported Level of Assist: Supervision/set -up Comments: Sitting Dynamic Balance: Balance support RUE support, LUE support, Unilateral UE Support, No UE Support, Feet Supported Level of Assist: Supervision/set -up Comments: While sitting on toilet and completing hygiene Standing Static Balance: Balance support R UE support, L UE support, Unilateral UE support, No UE support, Rolling Walker Level of Assist: Supervision/set -up Comments: While standing at the sink for grooming tasks Activities of Daily Living Grooming: Level of Assistance: Supervision/set -up Where Assessed: Standing sink side , no assistive device Comments: LB dressing: Level of Assistance: Supervision/set -up Where Assessed: From chair, Standing , assembly machine set up mechanic, Sock aid Comments: Pt was able to don/doff B socks and pants with and without use of AE. Pt struggled without AE but has AE to use at home, therefore education was provided Toileting: Level of Assistance: Supervision/set -up Where Assessed: Toilet, Rolling Walker, Grab Bars, toilet Comments: Pt was also able to complete hygiene Transfers: Sit to Stand: SBA/Supervision, Rolling Walker Comments: Stand to Sit: SBA/Supervision, None Comments: With cues for technique To chair: Minimal Assist , Rolling Walker Comments: With hands on for safety as pt has a h/o of buckling To toilet: Minimal Assist , Rolling Walker Comments: Functional Ambulation: Pt ambulated with use of walker and hands on for safety. No buckling noted this session Tone: All extremities WNL Right Upper Extremity: normal Left Upper Extremity: normal Right Lower Extremity: normal Left Lower Extremity: normal Tone Comments: OT Assessment: Pt is progressing toward goals but would benefit from continued therapy to increase balance and safety during mobility and increase independence with ADL's Multi-Disciplinary Problems (from Occupational Therapy) Active Problems Problem: Bathing Start Date: 07/14/23 Goal Start Date Expected End Date End Date LTG - Patient will utilize adaptive techniques to bathe body with stand-by/contact guard 07/14/23 07/21/23 -- Problem: Dressings Lower Extremities Start Date: 07/14/23 Goal Start Date Expected End Date End Date LTG - Patient will utilize adaptive techniques/equipment to dress lower body with stand-by/contact guard 07/14/23 07/21/23 -- Problem: Dressing Upper Extremities Start Date: 07/14/23 Goal Start Date Expected End Date End Date LTG - Patient will utilize adaptive techniques/equipment to dress upper body with no assistance 07/14/23 07/21/23 -- Problem: Grooming Start Date: 07/14/23 Goal Start Date Expected End Date End Date LTG - Patient will utilize adaptive techniques/equipment to complete daily grooming activities with stand-by/contact guard 07/14/23 07/21/23 -- Problem: Toileting Start Date: 07/14/23 Goal Start Date Expected End Date End Date LTG - Patient will utilize adaptive techniques/equipment to complete daily toileting tasks with minimal assistance 07/14/23 07/21/23 -- Problem: Transfers Start Date: 07/14/23 Goal Start Date Expected End Date End Date LTG - Patient will perform bed mobility with no assistance 07/14/23 07/21/23 -- Problem: OT Misc Start Date: 07/14/23 Goal Start Date Expected End Date End Date Pt will complete (more content not included)... [facility] 07-16-2023 Note Advised by PT that p t did not do as well w/ stairs as hoped today and could benefit from SNF placement but they wouldn't be opposed to [facility] w/ family assistance. Discussed with pt who wants to discuss with her family first. Provided her a SNF list to review if needed. UPDATE 1:15PM- Followed up with pt/family at bedside and they have decided to discharge home with [facility] citing that she feels she has enough family support. Sent final AVS and discharge orders to [facility]. [facility] 07-16-2023 Note Physical Therapy Physical Therapy Treatment Patient Name: Lizabeth Montanez : 1945 Today's Date: 07/16/2023 Patient Active Problem List Diagnosis Chronic atrial fibrillation (CMS/HCC) Hypertensive disorder Left ventricular hypertrophy Obesity Palpitations Pulmonary hypertension (CMS/HCC) Nonrheumatic mitral valve regurgitation Abnormal stress test Localized osteoarthritis of left knee S/P total knee arthroplasty, left Objective General Visit Information: PT Last Visit PT Received On: 07/16/23 Response to Previous Treatment: Patient with no complaints from previous session. General Family/Caregiver Present: No Subjective: Pt. seen bedside for PT session this a.m. Upon arrival, pt. in bedside chair and cont. to report left knee pain. Pt. is motivated to work with therapies at this time. RN raven session. Vision - Basic Vision - Basic Assessment Current Vision: Wears glasses all the time Activity Tolerance Activity Tolerance Ambulation comments: Pt. ambulates from bedside chair, to toilet then into hallway to attempt stair negotiation. Pt. then returns to bedside chair. Pt. ambulates ~14'x2, then ~20' with RW and CGA. Endurance: Stage III Activity Tolerance Comments: Pt. limited by LLE pain and fatigue with increased activities. Pt. does not exhibit SOB, however. Precautions Precautions LE Weight Bearing Status: Left, WBAT Medical Precautions: fall risk, telemetry, incisional wound vac Post-Surgical Precautions: Left TKA Pain Pain Assessment Pain Assessment: 0-10 Pain Score: 2 Pain Type: Acute pain, Surgical pain Pain Location: Knee Pain Orientation: Left Pain Frequency: Constant/continuous Pain Onset: Ongoing Pain Interventions: Repositioned, Elevated, Cold applied Cognition Cognition Overall Cognitive Status: Within Functional Limits Arousal/Alertness: Appropriate responses to stimuli Following Commands: Follows multistep commands with increased time Safety Judgment: Decreased awareness of need for assistance Awareness of Errors: Decreased awareness of errors Deficits: Decreased awareness of deficits Attention Span: Appears intact Memory: Appears intact Problem Solving: Assistance required to identify errors made, Assistance required to generate solutions Communication: Intact General Assessment Static Sitting Balance Static Sitting Balance Static Sitting-Balance Support: No upper extremity supported, Feet supported Static Sitting-Level of Assistance: Distant supervision Dynamic Sitting Balance Dynamic Sitting Balance Dynamic Sitting-Balance Support: Unilateral upper extremity supported, Feet supported Dynamic Sitting Balance-Level of Assistance: Close supervision Static Standing Balance Static Standing Balance Static Standing-Balance Support: Right upper extremity supported, Left upper extremity supported, With device Static Standing-Level of Assistance: Contact guard Dynamic Standing Balance Dynamic Standing Balance Dynamic Standing-Balance Support: Right upper extremity supported, Left upper extremity supported, With device (RW) Dynamic Standing Balance-Level of Assistance: Contact guard Treatment: Therapeutic Exercise Therapeutic Exercise Activity 1: BLE (AROM) ankle pumps, LAQs and marches x 10 reps. ea. while seated EOB. Ambulation Ambulation: Yes Ambulation 1 Surface 1: Level tile Device 1: Rolling walker Assistance 1: Contact guard Quality of Gait 1: Slow ambulatory pace. Short, shuffling steps to advance gait. Instability is noted, but no LOB. Comments/Distance (ft) 1: ~14'x2, ~20' Stairs Stairs: Yes Stairs Rails 1: Bilateral, Left Assistance 1: Contact guard, Minimum assistance, Moderate assistance (CGA with nadja rails, Min. to Mod. A with unilateral rail) Quality of Stairs 1: Sig. slow pace. Pt. turns hips when descending steps despite cues. Pt. does report that left knee buckled during stair negotiation. Sig wt bearing through this COLORING MACHINE OPERATOR's hand when giving assistance with use of unilateral rail. Comment/Number of Steps 1: 5 total Bed Mobility Bed Mobility: No (As pt was seated in bedside chair upon entry and returns to bedside chair at end of session.) Transfers Transfer: Yes Transfer 1 Transfer From 1: Sit Transfer Type 1: To and from Transfer to 1: Stand Transfer Device 1: rolling walker Transfer Level of Assistance 1: Contact guard Trials/Comments 1: Verbal cues for correct hand placement and overall technique. Transfers 2 Transfer From 2: Sit Transfer Type 2: To and from Transfer to 2: Stand, Toilet Transfer Device 2: grab bar/toilet Transfer Level of Assistance 2: Minimum assistance Trials/Comments 2: Pt again requires verbal cues regarding correct hand placement and technique during transfer. Modalities Cryotherapy (Minutes/Location/Skin Check): PolarCare to left knee at end of session. Other Activity Othe (more content not included)... [facility] 07-16-2023 Note ------ Attestation signed by Mynor Gallegos MD at 07/18/2023 10:18 PM I did not personally examine the patient. I discussed the case with the resident/fellow Pravin Dey. Teaching Physician's Revisions: none ------ Orthopaedic Surgery Orthopaedic Surgery Progress Note Date: 07/16/2023 Surgery: 07/12/2023 - ARTHROPLASTY, KNEE, TOTAL (L) SUBJECTIVE: NAEON, pain controlled, continues to deny CP/SOB. Pain to left knee continues to improve. Patient stated that it was recommended she work with PT again today because she has 3 steps before entering her home and will practice steps today to assure safety. OBJECTIVE BP 131/67 (BP Location: Left arm, Patient Position: Lying) Pulse 60 Temp 36.8 ???C (98.2 ???F) (Oral) Resp 16 Ht 1.676 m (5' 6 ) Wt 102 kg (225 lb 15.5 oz) SpO2 99% BMI 36.47 kg/m??? General: No acute distress, alert and cooperative with exam MSK: LLE: dressing/incision is clean dry and intact, compartments soft and compressible, no warmth, no erythema, motor intact DF/PF/EHL, wiggles toes, sensation intact t/sp/dp/s/s, good cap refill, and 2+ DP/PT Polar care in place Labs Lab Results Component Value Date WBC 8.66 07/15/2023 HGB 7.5 (L) 07/15/2023 HCT 24.1 (L) 07/15/2023 MCV 104.3 (H) 07/15/2023 PLT 151 07/15/2023 Lab Results Component Value Date GLU 97 12/26/2022 CALCIUM 9.0 07/15/2023 NA 133 (L) 07/15/2023 K 4.1 07/15/2023 CO2 19 (L) 07/15/2023 CL 110 (H) 07/15/2023 BUN 41 (H) 07/15/2023 CREATININE 1.68 (H) 07/15/2023 Lab Results Component Value Date INR 1.38 (H) 06/27/2023 Imaging: No X-ray results found for the past [address] results found for the past 24 hours No MRI results found for the past 24 hours ASSESSMENT: Lizabeth Montanez is a 78 y.o. female 4 Days Post-Op ARTHROPLASTY, KNEE, TOTAL (L). PLAN Weightbearing as tolerated LLE DVT ppx: Per primary team Pain control: Multimodal Dressing: Do not remove dressing, may reinforce as necessary PT/OT Ok for discharge pending PT/OT eval today. Pravin Dey MD Orthopaedic Surgery, PGY-2 Ortho Pager [phone] 07/16/23 7:36 AM I am available via [address] [employer] 6a-6m. May contact the on-call resident with any concerns via the Orthopaedic pager at any time. [facility] 07-15-2023 Note Occupational Therapy Occupational Therapy Treatment Note Patient Name: Lizabeth Montanez Patient Date of : 1945 Today's Date: 07/15/23 Time in: 1527 Time Out: 1606 Total Time: 39 Active Ambulatory Problems Diagnosis Date Noted Chronic atrial fibrillation (CMS/HCC) 03/09/2008 Hypertensive disorder 03/15/2008 Left ventricular hypertrophy 03/09/2008 Obesity 03/24/2010 Palpitations 08/18/2013 Pulmonary hypertension (CMS/HCC) 06/15/2013 Nonrheumatic mitral valve regurgitation 11/07/2022 Abnormal stress test 12/20/2022 Localized osteoarthritis of left knee 04/16/2023 Resolved Ambulatory Problems Diagnosis Date Noted Warfarin therapy started 03/23/2008 Past Medical History: Diagnosis Date Atrial fibrillation (CMS/HCC) Hypertension OA (osteoarthritis) OT Received On 07/15/23 Subjective I really want to go home today Objective 1 Pt was up in chair at EOS with family present Objective 2 During mobility task from bathroom to recliner, comic book writer notes L knee buckle. Pt was able to self recover however, pt is not safe to discharge home at this time. Pt also has 3 steps to enter home. OT Discharge Recommendation Home with assist OT Equipment Recommendations Shower chair General Pain 3 Pain Location L knee incision Pain Comments Precautions: TKA UE WB status bilateral, WBAT LE WB status bilateral, WBAT Cognition Orientation Oriented x4 Attention Span intact Memory intact Sequencing intact Problem Solving intact Other General Assessment Vision intact Hearing Intact Communication Intact Skin: Edema: Balance: Sitting Static Balance: Balance support RUE support, LUE support, Unilateral UE Support, No UE Support, Feet Supported Level of Assist: Supervision/set -up Comments: Sitting EOB and on toilet Standing Static Balance: Balance support R UE support, L UE support, Unilateral UE support, Rolling Walker Level of Assist: Minimal assist Comments: Activities of Daily Living Toileting: Level of Assistance: Minimal assist Where Assessed: Toilet, Raised Toilet Seat Comments: Pt was able to complete own hygiene Bed Mobility: For supine to sit with HOB flat, no rails Rolling Left: SBA/Supervision Comments: Supine to Sit: SBA/Supervision Comments: Transfers: Sit to Stand: Minimal Assist , Rolling Walker Comments: Stand to Sit: Minimal Assist , None Comments: With cues for technique To chair: Minimal Assist , Rolling Walker Comments: To toilet: Minimal Assist , Rolling Walker Comments: Functional Ambulation: Pt ambulated with use of walker from EOB to toilet to recliner. Pt required education on proper hand placement and ambulation/gait techniques. Bearing Grinder notes L knee buckle x1, pt was able to recover. Tone: All extremities WNL Right Upper Extremity: normal Left Upper Extremity: normal Right Lower Extremity: normal Left Lower Extremity: normal Tone Comments: OT Assessment: Pt is progressing toward goals but would benefit from continued therapy to increase balance and safety during functional mobility and to increase independence with ADL's Multi-Disciplinary Problems (from Occupational Therapy) Active Problems Problem: Bathing Start Date: 07/14/23 Goal Start Date Expected End Date End Date LTG - Patient will utilize adaptive techniques to bathe body with stand-by/contact guard 07/14/23 07/21/23 -- Problem: Dressings Lower Extremities Start Date: 07/14/23 Goal Start Date Expected End Date End Date LTG - Patient will utilize adaptive techniques/equipment to dress lower body with stand-by/contact guard 07/14/23 07/21/23 -- Problem: Dressing Upper Extremities Start Date: 07/14/23 Goal Start Date Expected End Date End Date LTG - Patient will utilize adaptive techniques/equipment to dress upper body with no assistance 07/14/23 07/21/23 -- Problem: Grooming Start Date: 07/14/23 Goal Start Date Expected End Date End Date LTG - Patient will utilize adaptive techniques/equipment to complete daily grooming activities with stand-by/contact guard 07/14/23 07/21/23 -- Problem: Toileting Start Date: 07/14/23 Goal Start Date Expected End Date End Date LTG - Patient will utilize adaptive techniques/equipment to complete daily toileting tasks with minimal assistance 07/14/23 07/21/23 -- Problem: Transfers Start Date: 07/14/23 Goal Start Date Expected End Date End Date LTG - Patient will perform bed mobility with no assistance 07/14/23 07/21/23 -- Problem: OT Misc Start Date: 07/14/23 Goal Start Date Expected End Date End Date Pt will complete functional transfers and functional ambulation with modified independent using least restrictive device. 07/14/23 07/21/23 -- Goal Start Date Expected End Date End Date Pt will demo 20 minutes of dynamic sitting and standing tasks in least restrictive environment with stand-by/contact guard needed for safe completion of all functional tasks a (more content not included)... [facility] 07-15-2023 Note Hospital Medicine Discharge Summary Final Discharge Diagnosis: S/P total knee arthroplasty, left Admission Diagnosis: Localized osteoarthritis of left knee [M17.12] S/P total knee arthroplasty, left [Z96.652] Hospital Diagnosis: # Left knee osteoarthritis, s/p left TKA # Atrial Fibrillation, on Eliquis # Essential HTN # Pulmonary HTN # LVH HPI: Lizabeth Montanez is an 78 y.o. female who came from home with pastMedical history of atrial fibrillation, hypertension, LVH, pulmonary hypertension presents as a planned admission to the [facility] for a left total knee arthroplasty. Per report, procedure went smoothly. Plan for postoperative antibiotics, DVT prophylaxis and pain control. Patient is able to be weightbearing as tolerated with left lower extremity PT. Plan for discharge in a.m. During examination, patient is resting in bed comfortably. States she has some mild nausea but denies pain at this time. Hospital Course: Patient underwent uncomplicated left TKA on 07/12 for severe left knee osteoarthritis. She tolerated procedure well and was admitted to the hospital thereafter. She worked with physical therapy and OT who recommended SNF. Patient ultimately elected to be discharged home with home health care. She was given a 7-day prescription for doxycycline per orthopedic recommendations for postoperative surgical prophylaxis. Patient instructed to follow-up with PCP and orthopedic surgery upon discharge. Consulting Service(s): Orthopedic Surgery Inpatient Procedure(s): Left TKA - 07/12/[address] Smitha MD, Lizabeth is advised to follow up with you within 1-2 weeks. Follow-up with: Orthopedics Scheduled appointments: Future Appointments Date Time Provider Department Center 07/25/2023 2:30 PM Mynor Gallegos MD [facility] 08/21/2023 9:00 AM Lilia Serrato NP [facility] Your medication list START taking these medications Instructions Last Dose Given Next Dose Due docusate sodium 100 mg tablet Commonly known as: Colace Take 1 tablet (100 mg) by mouth if needed in the morning and at bedtime for constipation for up to 7 days. doxycycline 100 mg capsule Commonly known as: Vibramycin Take 1 capsule (100 mg) by mouth in the morning and at bedtime for 10 days. Take with at least 8 ounces (large glass) of water, do not lie down for 30 minutes after HYDROcodone-acetaminophen 5-325 mg tablet Commonly known as: [place] Take 1 tablet by mouth every 6 (six) hours if needed for moderate pain (4-7 pain score) for up to 7 days. CHANGE how you take these medications Instructions Last Dose Given Next Dose Due apixaban 5 mg tablet Commonly known as: Eliquis What changed: when to take this Take 1 tablet (5 mg) by mouth in the morning and at bedtime. Do not start before July 13, 2023. CONTINUE taking these medications Instructions Last Dose Given Next Dose Due bisoprolol 10 mg tablet Commonly known as: Zebeta celecoxib 200 mg capsule Commonly known as: CeleBREX dilTIAZem 60 mg immediate release tablet Commonly known as: Cardizem Entresto 24-26 mg tablet Generic drug: sacubitril-valsartan ferrous sulfate 325 (65 Fe) MG tablet hydrALAZINE 100 mg tablet Commonly known as: Apresoline hydroCHLOROthiazide 50 mg tablet Commonly known as: HYDRODiuril Where to Get Your Medications These medications were sent to [facility] - [place], [place] - [address] [place] [address] [place] [address], [facility] [address] apixaban 5 mg tablet docusate sodium 100 mg tablet doxycycline 100 mg capsule HYDROcodone-acetaminophen 5-325 mg tablet Lizabeth is allergic to penicillins. [place]position[place] [facility]: Good Code Status: Full Code Diagnostic Results Hematology: Results from last 7 days Lab Units 07/15/2351407/14/23431 WBC AUTO 10*3/uL 8.66 11.57* HEMOGLOBIN g/dL 7.5* 7.7* HEMATOCRIT % 24.1* 24.5* MCV fL 104.3* 102.9* PLATELETS AUTO 10*3/uL 151 148* Chemistry: Results from last 7 days Lab Units 07/15/2351407/14/2343107/13/23 0545 SODIUM mmol/L 133* 135* 138 POTASSIUM mmol/L 4.1 4.7 4.5 CHLORIDE mmol/L 110* 109* 111* CO2 mmol/L 19* 21 19* BUN mg/dL 41* 38* 34* CREATININE mg/dL 1.68* 1.66* 1.47* GLUCOSE mg/dL 87 100 167* CALCIUM mg/dL 9.0 9.4 10.0 No lab exists for component: AFIO2, APHT, APCOT, APOT, ATCO2, CK, ALB, IBILI Test Results Pending At Discharge: Diet at the time of discharge: regular diet Activity: Do not drive or drink alcohol while taking narcotic pain medications. No tub baths, swimming, or submerging your incision. Keep clean and dry until your follow-up visit Objective Blood pressure 102/66, pulse 72, temperature 36.9 ???C (98.4 ???F), resp. rate 16, height 1.676 m (5' 6 ), weight 101 kg (223 lb 8.7 oz), SpO2 100 %, not currently . General: Alert (more content not included)... [facility] 07-15-2023 Note Advised by medical t nick that pt wishes to discharge home instead of SNF. Discussed with pt who is in agreement but would like to work with therapy one more time today and also cited that her dgtr will be staying w/ her for 1 week after discharge. Pt requested [facility]. Referral sent. [facility] 07-15-2023 Note ------ Attestation signed by Mynor Gallegos MD at 07/18/2023 10:19 PM I did not personally examine the patient. I discussed the case with the resident/fellow Pravin Dey. Teaching Physician's Revisions: none ------ Orthopaedic Surgery Orthopaedic Surgery Progress Note Date: 07/15/2023 Surgery: 07/12/2023 - ARTHROPLASTY, KNEE, TOTAL (L) SUBJECTIVE: NAEON, pain controlled, continues to deny CP/SOB. Pain to left knee continues to improve. Patient expressed that she would like to discharge home today and plans to discuss with PT and SW. OBJECTIVE BP 102/66 Pulse 72 Temp 36.9 ???C (98.4 ???F) Resp 16 Ht 1.676 m (5' 6 ) Wt 101 kg (223 lb 8.7 oz) SpO2 100% BMI 36.08 kg/m??? General: No acute distress, alert and cooperative with exam MSK: LLE: dressing/incision is clean dry and intact, compartments soft and compressible, no warmth, no erythema, motor intact DF/PF/EHL, wiggles toes, sensation intact t/sp/dp/s/s, good cap refill, and 2+ DP/PT Polar care in place Labs Lab Results Component Value Date WBC 8.66 07/15/2023 HGB 7.5 (L) 07/15/2023 HCT 24.1 (L) 07/15/2023 MCV 104.3 (H) 07/15/2023 PLT 151 07/15/2023 Lab Results Component Value Date GLU 97 12/26/2022 CALCIUM 9.0 07/15/2023 NA 133 (L) 07/15/2023 K 4.1 07/15/2023 CO2 19 (L) 07/15/2023 CL 110 (H) 07/15/2023 BUN 41 (H) 07/15/2023 CREATININE 1.68 (H) 07/15/2023 Lab Results Component Value Date INR 1.38 (H) 06/27/2023 Imaging: No X-ray results found for the past [address] results found for the past 24 hours No MRI results found for the past 24 hours ASSESSMENT: Lizabeth Montanez is a 78 y.o. female 3 Days Post-Op ARTHROPLASTY, KNEE, TOTAL (L). PLAN Weightbearing as tolerated LLE DVT ppx: Per primary team Pain control: Multimodal Dressing: Do not remove dressing, may reinforce as necessary PT/OT Ok for discharge following PT/OT eval today. Patient expressed that she would like to dc home. Pravin Dey MD Orthopaedic Surgery, PGY-2 Ortho Pager [phone] 07/15/23 7:55 AM I am available via [address] [employer] 6a-6p. May contact the on-call resident with any concerns via the Orthopaedic pager at any time. [facility] 07-14-2023 Note Occupational Therapy Occupational Therapy Treatment Patient Name: Lizabeth Montanez : 1945 Today's Date: 07/14/2023 Time in:855 Time out:1006 Total time: 40 minutes OT session,2SC,1TA 71 minutes, partial co-treat to promote max safety and progress functional mobility etc Problem List Patient Active Problem List Diagnosis Chronic atrial fibrillation (CMS/HCC) Hypertensive disorder Left ventricular hypertrophy Obesity Palpitations Pulmonary hypertension (CMS/HCC) Nonrheumatic mitral valve regurgitation Abnormal stress test Localized osteoarthritis of left knee S/P total knee arthroplasty, left 07/14/23 0855 OT Last Visit OT Received On 07/14/23 General:RN approve oob tx session, ended session with patient in bedside chair with call light, needs in reach, and polar ice donned, RN aware Subjective Patient in bedside chair upon arrival and states my goal is to get up and walk today, I am a little nervous but we can try Family/Caregiver Present No Pain Assessment Pain Assessment (Patient did not rate pain with numeric value, notes that the knee is sore however no significant pain noted with mobility etc) Cognition Overall Cognitive Status WFL Arousal/Alertness Appropriate responses to stimuli Orientation Level Oriented X4 Following Commands Follows all commands and directions without difficulty Cognition Comments Patient was receptive to education and cues, however did require gentle cues to remind to reach back, safest transfer techniques, fall prevention etc. General Assessment Edema edema to LLE (compression stockings are significantly tight behind knee, notified RN to ensure skin integrity and potnetially inquire about cece wraps etc) UE Bathing UE Bathing Level of Assistance Close supervision;Distant supervision UE Bathing Where Assessed Sitting in chair UE Bathing Comments Patient washed face, upper body, assist with washing back UE Dressing UE Dressing Level of Assistance Setup UE Dressing Where Assessed Sitting in chair UE Dressing Comments to doff and don gown LE Dressing LE Dressing (educated patient on LB dressing utilizing assembly machine set up mechanic and sock aide, patient notes has assembly machine set up mechanic, long shoe horn and sock aide) Toileting Toileting Level of Assistance Close supervision Where Assessed Toilet Toileting Comments Patient was able to make it to bathroom Functional Standing Tolerance Functional Standing Tolerance Comments Patient tolerated functional standing during functional transfers and functional mobility Static Sitting Balance Static Sitting-Balance Support Feet supported Static Sitting-Level of Assistance Distant supervision Dynamic Sitting Balance Dynamic Sitting-Balance Support Feet supported Dynamic Sitting Balance-Level of Assistance Distant supervision Dynamic Sitting-Comments to complete ADLs Static Standing Balance Static Standing-Balance Support Right upper extremity supported;Left upper extremity supported;With device Static Standing-Level of Assistance Contact guard Static Standing-Comment/Number of Minutes CGA to ensure safety with RW for support (cues for adjusting knee at times as the left LE did tend so appear to hyper extend) Dynamic Standing Balance Dynamic Standing-Balance Support Right upper extremity supported;Left upper extremity supported;With device Dynamic Standing Balance-Level of Assistance Minimum assistance Dynamic Standing-Comments CGA >min A to ensure max stability as patient did note slight unsteadiness through out session Bed Mobility Bed Mobility No Transfers Transfer Yes Transfer 1 Transfer From 1 Chair with arms;Sit Transfer Type 1 To Transfer to 1 Stand Technique 1 Sit to stand Transfer Device 1 rolling walker Transfer Level of Assistance 1 Minimum assistance Trials/Comments 1 Min A for initial stand and cue to push from bedside chair Transfers 2 Transfer From 2 Stand Transfer Type 2 To Transfer to 2 Stand;Toilet Trials/Comments 2 stand to sit on toilet, cues for reaching back and assist with decend (sit>>stand from toilet with RW, use of grab bar, cues for LE positioning) Transfers 3 Transfer From 3 Stand Transfer Type 3 To Transfer to 3 Sit;Chair with arms Trials/Comments 3 cues for transfer techniques, cues for safest techniques Activity Tolerance Endurance Stage II Stage II (METs 1.4-2.0) - Sitting 20-30 mins Number of Rest Breaks 32 Activity Tolerance Comments Patient complete self care tasks, with increased time, and complete functional transfers and functional mobility from bedside chair to bathroom>>to bedside chair, fatigue noted however no shortness of breath or severe pain increase reported OT Assessment OT Assessment/CARLOS ENRIQUE Summary Patient tolerated session demonstrating some progress from previous session. Patient was able to complete functional transfers and functional mobility from bedside chair (more content not included)... [facility] 07-14-2023 Note Hospital Medicine Daily Progress Note - 07/14/2023 12:59 PM; Room: [address] [place] [address] Admission: 07/12/2023 8:22 AM; Length of stay: 0 days THE HOSPITALIST TEAM PREFERS TO USE [employer] CHAT FOR COMMUNICATION 7AM-7PM. IF I DO NOT RESPOND WITHIN 15 MINUTES, PLEASE PAGE ME/CALL THROUGH THE [employer] DEB[employer]ER. FROM 7PM-7AM, PLEASE PAGE [phone](COVR) Code Status: Full Code Discharge Destination: intermediate facility Discharge planning: pending placement Overview Patient is seen for evaluation and management of L TKA. Subjective Lizabeth Montanez was seen and examined at bedside. No current nursing concerns or overnight events. Patient denies CP, SOB, N/V/D/C, fever, chills, or abdominal pain. Doing well with minimal pain medication. PT/OT recommending SNF. Pending placement. Physical Exam Visit Vitals BP 110/58 Pulse 68 Temp 36.8 ???C (98.2 ???F) Resp 16 Intake/Output Summary (Last 24 hours) at 07/14/2023 1259 Last data filed at 07/14/2023 0800 Gross per 24 hour Intake 300 ml Output -- Net 300 ml Physical Exam Vitals and nursing note reviewed. Constitutional: General: She is not in acute distress. Appearance: Normal appearance. She is obese. She is not ill-appearing. HENT: Head: Normocephalic. Mouth/Throat: Mouth: Mucous membranes are moist. Eyes: Conjunctiva/sclera: Conjunctivae normal. Cardiovascular: Rate and Rhythm: Normal rate and regular rhythm. Pulses: Normal pulses. Heart sounds: Normal heart sounds. No murmur heard. No friction rub. No gallop. Pulmonary: Effort: Pulmonary effort is normal. No respiratory distress. Breath sounds: Normal breath sounds. No wheezing, rhonchi or rales. Abdominal: General: Abdomen is flat. Bowel sounds are normal. There is no distension. Palpations: Abdomen is soft. There is no mass. Tenderness: There is no abdominal tenderness. There is no guarding. Musculoskeletal: General: Swelling (L knee in brace) present. No tenderness or deformity. Normal range of motion. Right lower leg: No edema. Left lower leg: No edema. Skin: General: Skin is warm. Capillary Refill: Capillary refill takes less than 2 seconds. Coloration: Skin is not jaundiced. Findings: No erythema, lesion or rash. Neurological: General: No focal deficit present. Mental Status: She is alert and oriented to person, place, and time. Mental status is at baseline. Cranial Nerves: No cranial nerve deficit. Sensory: No sensory deficit. Motor: No weakness. Psychiatric: Mood and Affect: Mood normal. Behavior: Behavior normal. Thought Content: Thought content normal. Judgment: Judgment normal. Estimated body mass index is 35.51 kg/m??? as calculated from the following: Height as of this encounter: 1.676 m (5' 6 ). Weight as of this encounter: 99.8 kg (220 lb 0.3 oz). Active Inpatient Problems Principal Problem: S/P total knee arthroplasty, left Active Problems: Chronic atrial fibrillation (CMS/HCC) Hypertensive disorder Left ventricular hypertrophy Pulmonary hypertension (CMS/HCC) Assessment and Plan Lizabeth Montanez is an 78 y.o. female who came from home with pastMedical history of atrial fibrillation, hypertension, LVH, pulmonary hypertension presents as a planned admission to the [facility] for a left total knee arthroplasty. #S/p L TKA on 07/12 -Patient s/p left total knee arthroplasty with Dr. Gallegos on 07/12/2023 -Eliquis started by orthopedic team postoperatively and pain control has been ordered. Monitor hgb. Had small drop today from 8.4->7.7. Transfuse for Hgb <7. -Weightbearing as tolerated -PT/OT recommending SNF. SW consult for placement. #Atrial Fibrillation, Continue home medications #HTN, continue home medications #Pulmonary HTN, continue home medications #LVH, continue home medications VTE Prophylaxis: Eliquis Scheduled Meds acetaminophen, 1,000 mg, oral, q8h ROSIE apixaban, 5 mg, oral, BID bisoprolol, 10 mg, oral, Daily celecoxib, 200 mg, oral, Daily dilTIAZem, 30 mg, oral, BID docusate sodium, 100 mg, oral, BID ferrous sulfate, 325 mg, oral, Daily with breakfast hydrALAZINE, 50 mg, oral, BID hydroCHLOROthiazide, 25 mg, oral, Daily sacubitril-valsartan, 1 tablet, oral, BID Oxygen Therapy, sodium chloride, 30 mL/hr, Last Rate: 30 mL/hr (07/14/23 1041) Pertinent Investigations Hematology: Results from last 7 days Lab Units 07/14/2343107/13/23 0545 WBC AUTO 10*3/uL 11.57* 9.44 HEMOGLOBIN g/dL 7.7* 8.4* HEMATOCRIT % 24.5* 27.0* MCV fL 102.9* 104.7* PLATELETS AUTO 10*3/uL 148* 147* Chemistry: Results from last 7 days Lab Units 07/14/232 07/13/23 0545 SODIUM mmol/L 135* 138 POTASSIUM mmol/L 4.7 4.5 CHLORIDE mmol/L 109* 111* CO2 mmol/L 21 19* BUN mg/dL 38* 34* CREATININE mg/dL 1.66* 1.47* GLUCOSE mg/dL 100 167* CALCIUM mg/dL 9.4 10.0 No lab exists for component: AFIO2, APHT, APCOT, APOT, ATCO2, CK, ALB, IBILI Results from last 7 days Lab Units 07/12/23 (more content not included)... [facility] 07-14-2023 Note [facility] reports patient' s SNF choices are [facility] [place]. Referral sent. Patient will need accepting facility and insurance precert. OTM will continue to follow. [facility] 07-14-2023 Note Physical Therapy Physical Therapy Treatment Patient Name: Lizabeth Montanez : 1945 Today's Date: 07/14/2023 Discharge Recommendation: SNF Time Calculation Start Time 0915 Stop Time 1006 Time Calculation (min) 51 min PT Therapeutic Procedures Time Entry Therapeutic Activity Time Entry 20 Therapeutic Exercise Time Entry 10 Partial co-tx with LUQUE to facilitate purposeful activity, 2/2 high fall risk, impaired act tolerance, & increased burden of assist for STS & transfers; To maintain safety of patient & staff. Patient Active Problem List Diagnosis Chronic atrial fibrillation (CMS/HCC) Hypertensive disorder Left ventricular hypertrophy Obesity Palpitations Pulmonary hypertension (CMS/HCC) Nonrheumatic mitral valve regurgitation Abnormal stress test Localized osteoarthritis of left knee S/P total knee arthroplasty, left 07/14/23 0915 PT Last Visit PT Received On 07/14/23 General Family/Caregiver Present No Subjective My goal was to walk to the bathroom today. (Nursing reported pt ok for therapy. Pt in recliner with LUQUE present, agreeable.) Activity Tolerance Endurance Stage II Stage II (METs 1.4-2.0) - Sitting 20-30 mins Number of Rest Breaks 3 Activity Tolerance Comments Pt performed transfers, (L)LE AROM, standing, and ambulation with moderate increase in fatigue. Precautions LE Weight Bearing Status Left;WBAT Post-Surgical Precautions s/p L TKA on 07/12/23 Pain Assessment Pain Assessment 0-10 Pain Score 4 Pain Type Acute pain;Surgical pain Pain Location Knee Pain Orientation Left Pain Interventions Medication (See MAR);Cold pack;Elevated Cognition Overall Cognitive Status WFL Arousal/Alertness Appropriate responses to stimuli Orientation Level Oriented X4 Following Commands Follows all commands and directions without difficulty Safety Judgment Decreased awareness of need for safety Awareness of Errors Decreased awareness of errors Problem Solving Assistance required to identify errors made Cognition Comments Occasional cues for safety awareness and proper positioning General Assessment Edema edema to LLE Therapeutic Exercise Therapeutic Exercise Activity 1 Seated (L)LE LAQ and knee flexion, standing TKE and mini squats with focus on controlled extension. Static Sitting Balance Static Sitting-Balance Support Feet supported Static Sitting-Level of Assistance Distant supervision Dynamic Sitting Balance Dynamic Sitting-Balance Support Feet supported Dynamic Sitting Balance-Level of Assistance Distant supervision Static Standing Balance Static Standing-Balance Support Right upper extremity supported;Left upper extremity supported;With device Static Standing-Level of Assistance Contact guard Static Standing-Comment/Number of Minutes CGA to ensure safety with RW for support. Dynamic Standing Balance Dynamic Standing-Balance Support Right upper extremity supported;Left upper extremity supported;With device Dynamic Standing Balance-Level of Assistance Minimum assistance Dynamic Standing-Comments CGA -> min assist required to maintain balance during functional mobility with RW for support Ambulation 1 Comments/Distance (ft) 1 Pt ambulated ~10' and 18' x 2 with RW for support, min assist x 1 -2 to maintain balance, manage RW, and cues for safety/technique. Slow, antalgic, step to gait pattern with several standing rest breaks. Intermittent genu recurvatum, assist required to prevent LOB. Stairs Stairs (Discussed home set up. Pt requested to hold performing stairs at this time after increased standing and ambulation.) Bed Mobility Bed Mobility No Transfer 1 Trials/Comments 1 Sit to stand from recliner with min assist for lift, balance, and RW management. Cues for safety and technique. Transfers 2 Trials/Comments 2 Stand to sit performed with min assist to control descent and placement to recliner. Cues for safety and technique including hand placement and (L)LE management. Transfers 3 Trials/Comments 3 Toilet transfer performed with min -> mod assist and use of grab bar. Modalities Cryotherapy (Minutes/Location/Skin Check) Polar pack (L)LE at end of session, elevated in recliner. Other Activity Other Activity 1 Pt in recliner at end of session with call light in reach, RN aware. 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 Several LOB during ambulation due to sudden (L)LE knee hyperextension. Pt limited by overall deconditioning and (L)LE weakness. Continue to progress as tolerated. Prognosis Good Evaluation/Treatment Tolerance Patient limited by fatigue Medical Staff Made Aware Yes PT Education/Comments Safety during functional mobility, discharge options Plan Level of assist 1 assist PT Discharge Recommendations [facility] facility placement Outcome Assessments 6 Cl (more content not included)... [facility] 07-14-2023 Note ------ Attestation signed by Mynor Gallegos MD at 07/14/2023 7:32 PM I did not personally examine the patient. I discussed the case with the resident/fellow João Puente. Teaching Physician's Revisions: none ------ Orthopaedic Surgery Orthopaedic Surgery Progress Note Date: 07/14/2023 Surgery: 07/12/2023 - ARTHROPLASTY, KNEE, TOTAL (L) SUBJECTIVE: NAEON, pain controlled, denies CP/SOB. Pain to left knee improved this morning, no other notable symptoms. Plans to try ambulating today with PT/OT, if she does very well may go home but at this time she is anticipating discharge to SNF. OBJECTIVE BP 110/58 Pulse 68 Temp 36.8 ???C (98.2 ???F) Resp 16 Ht 1.676 m (5' 6 ) Wt 99.8 kg (220 lb 0.3 oz) SpO2 100% BMI 35.51 kg/m??? General: No acute distress, alert and cooperative with exam MSK: LLE: dressing/incision is clean dry and intact, compartments soft and compressible, no warmth, no erythema, motor intact DF/PF/EHL, wiggles toes, sensation intact t/sp/dp/s/s, good cap refill, and 2+ DP/PT Polar care in place Labs Lab Results Component Value Date WBC 11.57 (H) 07/14/2023 HGB 7.7 (L) 07/14/2023 HCT 24.5 (L) 07/14/2023 MCV 102.9 (H) 07/14/2023 PLT 148 (L) 07/14/2023 Lab Results Component Value Date GLU 97 12/26/2022 CALCIUM 9.4 07/14/2023 NA 135 (L) 07/14/2023 K 4.7 07/14/2023 CO2 21 07/14/2023 CL 109 (H) 07/14/2023 BUN 38 (H) 07/14/2023 CREATININE 1.66 (H) 07/14/2023 Lab Results Component Value Date INR 1.38 (H) 06/27/2023 Imaging: No X-ray results found for the past [address] results found for the past 24 hours No MRI results found for the past 24 hours ASSESSMENT: Lizabeth Montanez is a 78 y.o. female 2 Days Post-Op ARTHROPLASTY, KNEE, TOTAL (L). PLAN Weightbearing as tolerated LLE DVT ppx: Per primary team Pain control: Multimodal Dressing: Do not remove dressing, may reinforce as necessary PT/OT Ok for discharge following PT/OT eval today. No issue with discharge home or to SNF as determined by therapy teams João Puente MD Orthopaedic Surgery, PGY-2 Ortho Pager [phone] 07/14/23 8:34 AM I am available via [employer] [address] [employer] 6a-6p. May contact the on-call resident with any concerns via the Orthopaedic pager at any time. [facility] 07-14-2023 Note Occupational Therapy Occupational Therapy Evaluation Patient Name: Lizabeth Montanez : 1945 Today's Date: 07/14/2023 Time in: 852 Time out: 920 Surgery type: L TKA Surgery date: 07/12/23 General Subjective: 78yoF presents with L knee OA, significant L knee pain. Pt seen s/p elective TKA. OT Diagnosis: Decreased independence in functional tasks s/p L TKA RN ok for pt to be seen at this time. Pt semi-fowlers upon arrival and agreeable to session. Pt completed functional tasks and functional ambulation. Pt was left sitting in chair with call light and needs in reach. RN aware of pt performance. Patient Active Problem List Diagnosis Chronic atrial fibrillation (CMS/HCC) Hypertensive disorder Left ventricular hypertrophy Obesity Palpitations Pulmonary hypertension (CMS/HCC) Nonrheumatic mitral valve regurgitation Abnormal stress test Localized osteoarthritis of left knee S/P total knee arthroplasty, left Past Medical History: Diagnosis Date Atrial fibrillation (CMS/HCC) Hypertension Left ventricular hypertrophy Nonrheumatic mitral valve regurgitation OA (osteoarthritis) Obesity Pulmonary hypertension (CMS/HCC) Past Surgical History: Procedure Laterality Date CARDIOVERSION SECTION, LOW TRANSVERSE X3 KNEE ARTHRODESIS Left 07/12/2023 TONSILLECTOMY Precautions Precautions LE Weight Bearing Status: Left, WBAT Medical Precautions: fall risk, IV, telemetry, TKA Pain Pain Assessment Pain Assessment: 0-10 Pain Score: 2 Pain Type: Acute pain, Surgical pain Pain Location: Knee Pain Orientation: Left Pain Interventions: Cold applied Cognition Cognition Overall Cognitive Status: Within Functional Limits Arousal/Alertness: Appropriate responses to stimuli Orientation Level: Oriented X4 Following Commands: Follows all commands and directions without difficulty Safety Judgment: Good awareness of safety precautions Awareness of Errors: Good awareness of errors made Deficits: Fully aware of deficits Attention Span: Appears intact Memory: Appears intact Problem Solving: Able to problem solve independently Communication: Intact General Assessment General Assessment Hearing: WFL Skin Integrity: surgical site not observed d/t bandaging and polar care Edema: edema to LLE Home Living Home Living Type of Home: House Lives With: Spouse Home Adaptive Equipment: Walker rolling, Cane, Lift Chair Home Living Comments: daughter and son available to assist Home Layout: Two level, Full bath main level Home Access: Stairs to enter with rails Entrance Stairs-Number of Steps: 3 Bathroom Shower/Tub: Walk-in shower Bathroom Toilet: Handicapped height Bathroom Equipment: Grab bars in shower, Built-in shower seat, Raised toilet seat with rails Prior Level of Function Prior Function Level of Clark: Independent with ADLs and functional transfers, Independent with homemaking with ambulation Prior Functional Mobility: Independent with cane Receives Help From: Family ADL Assistance: Independent Homemaking Assistance: Independent (Pt reports that she has had increased difficulty with IADLs.) Static Sitting Balance Static Sitting Balance Static Sitting-Balance Support: Feet supported, Unilateral upper extremity supported Static Sitting-Level of Assistance: Close supervision Dynamic Sitting Balance Dynamic Sitting Balance Dynamic Sitting-Balance Support: Unilateral upper extremity supported, Feet supported Dynamic Sitting-Balance: Reaching for objects Dynamic Sitting Balance-Level of Assistance: Close supervision Static Standing Balance Static Standing Balance Static Standing-Balance Support: Right upper extremity supported, Left upper extremity supported, With device Static Standing-Level of Assistance: Contact guard Dynamic Standing Balance Dynamic Standing Balance Dynamic Standing-Balance Support: Right upper extremity supported, Left upper extremity supported, With device Dynamic Standing-Balance: Reaching for objects Dynamic Standing Balance-Level of Assistance: Minimum assistance ADL ADL Grooming Assistance: Minimal Bathing Assistance: Moderate LE Dressing Assistance: Maximal Toileting Assistance with Device: Maximal Bed Mobility Bed Mobility Bed Mobility: Yes Bed Mobility 1 Bed Mobility From 1: Supine Bed Mobility Type 1: To Bed Mobility to 1: Short sit Level of Assistance 1: Close supervision Bed Mobility Comments 1: HOB raised. use of rail. Transfers Transfers Transfer: Yes Transfer 1 Transfer From 1: Bed, Sit Transfer Type 1: To Transfer to 1: Stand Technique 1: Sit to stand, Stand to sit Transfer Device 1: rolling walker Transfer Level of Assistance 1: Moderate assistance Transfers 2 Transfer From 2: Bed Transfer Type 2: To Transfer to 2: Chair with arms Technique 2: Sit to stand, Stand to sit Transfer Device 2: rolling (more content not included)... [facility] 07-13-2023 Note Hospital Medicine Daily Progress Note - 07/13/2023 2:23 PM; Room: [facility] Admission: 07/12/2023 8:22 AM; Length of stay: 0 days THE HOSPITALIST TEAM PREFERS TO USE [employer] CHAT FOR COMMUNICATION 7AM-7PM. IF I DO NOT RESPOND WITHIN 15 MINUTES, PLEASE PAGE ME/CALL THROUGH THE [employer]. FROM 7PM-7AM, PLEASE PAGE [phone](COVR) Code Status: Full Code Discharge Destination: intermediate facility Discharge planning: pending placement vs improvement Overview Patient is seen for evaluation and management of L TKA. Subjective Lizabeth Montanez was seen and examined at bedside. No current nursing concerns or overnight events. Patient denies CP, SOB, N/V/D/C, fever, chills, or abdominal pain. Doing well with minimal pain medication. PT/OT recommending SNF. Physical Exam Visit Vitals BP 98/64 (BP Location: Left arm, Patient Position: Sitting) Pulse 65 Temp 37 ???C (98.6 ???F) (Oral) Resp 18 Intake/Output Summary (Last 24 hours) at 07/13/2023 1423 Last data filed at 07/13/2023 0253 Gross per 24 hour Intake 200 ml Output -- Net 200 ml Physical Exam Vitals and nursing note reviewed. Constitutional: General: She is not in acute distress. Appearance: Normal appearance. She is obese. She is not ill-appearing. HENT: Head: Normocephalic. Mouth/Throat: Mouth: Mucous membranes are moist. Eyes: Conjunctiva/sclera: Conjunctivae normal. Cardiovascular: Rate and Rhythm: Normal rate and regular rhythm. Pulses: Normal pulses. Heart sounds: Normal heart sounds. No murmur heard. No friction rub. No gallop. Pulmonary: Effort: Pulmonary effort is normal. No respiratory distress. Breath sounds: Normal breath sounds. No wheezing, rhonchi or rales. Abdominal: General: Abdomen is flat. Bowel sounds are normal. There is no distension. Palpations: Abdomen is soft. There is no mass. Tenderness: There is no abdominal tenderness. There is no guarding. Musculoskeletal: General: Swelling (L knee in brace) present. No tenderness or deformity. Normal range of motion. Right lower leg: No edema. Left lower leg: No edema. Skin: General: Skin is warm. Capillary Refill: Capillary refill takes less than 2 seconds. Coloration: Skin is not jaundiced. Findings: No erythema, lesion or rash. Neurological: General: No focal deficit present. Mental Status: She is alert and oriented to person, place, and time. Mental status is at baseline. Cranial Nerves: No cranial nerve deficit. Sensory: No sensory deficit. Motor: No weakness. Psychiatric: Mood and Affect: Mood normal. Behavior: Behavior normal. Thought Content: Thought content normal. Judgment: Judgment normal. Estimated body mass index is 35.05 kg/m??? as calculated from the following: Height as of this encounter: 1.676 m (5' 6 ). Weight as of this encounter: 98.5 kg (217 lb 2.5 oz). Active Inpatient Problems Principal Problem: S/P total knee arthroplasty, left Active Problems: Chronic atrial fibrillation (CMS/HCC) Hypertensive disorder Left ventricular hypertrophy Pulmonary hypertension (CMS/HCC) Assessment and Plan Lizabeth Montanez is an 78 y.o. female who came from home with pastMedical history of atrial fibrillation, hypertension, LVH, pulmonary hypertension presents as a planned admission to the [facility] for a left total knee arthroplasty. #S/p L TKA on 07/12 -Patient s/p left total knee arthroplasty with Dr. Gallegos on 07/12/2023 -Eliquis started by orthopedic team postoperatively and pain control has been ordered. Monitor hgb. -Weightbearing as tolerated -PT/OT recommending SNF. SW consult for placement. #Atrial Fibrillation, Continue home medications #HTN, continue home medications #Pulmonary HTN, continue home medications #LVH, continue home medications VTE Prophylaxis: Eliquis Scheduled Meds acetaminophen, 1,000 mg, oral, q8h ROSIE apixaban, 5 mg, oral, BID bisoprolol, 10 mg, oral, Daily celecoxib, 200 mg, oral, Daily dilTIAZem, 30 mg, oral, BID docusate sodium, 100 mg, oral, BID ferrous sulfate, 325 mg, oral, Daily with breakfast hydrALAZINE, 50 mg, oral, BID hydroCHLOROthiazide, 25 mg, oral, Daily sacubitril-valsartan, 1 tablet, oral, BID Oxygen Therapy, sodium chloride, 30 mL/hr, Last Rate: 30 mL/hr (07/13/23 0055) Pertinent Investigations Hematology: Results from last 7 days Lab Units 07/13/23 0545 WBC AUTO 10*3/uL 9.44 HEMOGLOBIN g/dL 8.4* HEMATOCRIT % 27.0* MCV fL 104.7* PLATELETS AUTO 10*3/uL 147* Chemistry: Results from last 7 days Lab Units 07/13/23 0545 SODIUM mmol/L 138 POTASSIUM mmol/L 4.5 CHLORIDE mmol/L 111* CO2 mmol/L 19* BUN mg/dL 34* CREATININE mg/dL 1.47* GLUCOSE mg/dL 167* CALCIUM mg/dL 10.0 No lab exists for component: AFIO2, APHT, APCOT, APOT, ATCO2, CK, ALB, IBILI Results from last 7 days Lab Units 07/12/23 0911 POCT GLUCOSE mg/dL 108* Historical Values: (Includes values prior to this admission) No results fo (more content not included)... [facility] 07-13-2023 Note Physical Therapy Physical Therapy Evaluation Patient Name: Lizabeth Montanez : 1945 Today's Date: 07/13/2023 Time Calculation Start Time 0820 Stop Time 0848 Time Calculation (min) 28 min PT Evaluation Time Entry PT Evaluation (Moderate) Time Entry 28 PT Discharge Recommendations: [facility] facility placement (vs Home PT with 24 hour supervision/care pending progress) Equipment Recommended: shower chair Pt is a 78 year old female admitted 07/12/23 for elective sx L TKA performed same day d/t OA of L knee. PMH of A-fib, hypertension, LVH, pulmonary hypertension General Family/Caregiver Present: No Subjective: My knee feels like it's going to give out. RN and pt agreeable to PT eval this date. Co-eval with OT. Pt supine in bed upon arrival and left up in chair with call light in reach, RN aware. PT Diagnosis: decreased functional mobility Patient Active Problem List Diagnosis Chronic atrial fibrillation (CMS/HCC) Hypertensive disorder Left ventricular hypertrophy Obesity Palpitations Pulmonary hypertension (CMS/HCC) Nonrheumatic mitral valve regurgitation Abnormal stress test Localized osteoarthritis of left knee S/P total knee arthroplasty, left Past Medical History: Diagnosis Date Atrial fibrillation (CMS/HCC) Hypertension Left ventricular hypertrophy Nonrheumatic mitral valve regurgitation OA (osteoarthritis) Obesity Pulmonary hypertension (CMS/HCC) Past Surgical History: Procedure Laterality Date CARDIOVERSION SECTION, LOW TRANSVERSE X3 KNEE ARTHRODESIS Left 07/12/2023 TONSILLECTOMY Precautions Precautions LE Weight Bearing Status: Left, WBAT Medical Precautions: fall risk, IV, telemetry, TKA Post-Surgical Precautions: s/p L TKA on 07/12/23 Pain Pain Assessment Pain Assessment: 0-10 Pain Score: 2 Pain Type: Acute pain, Surgical pain Pain Location: Knee Pain Orientation: Left Pain Interventions: Cold applied, Ambulation/increased activity Cognition Cognition Overall Cognitive Status: Within Functional Limits Arousal/Alertness: Appropriate responses to stimuli Orientation Level: Oriented X4 Following Commands: Follows multistep commands with increased time Safety Judgment: Good awareness of safety precautions Awareness of Errors: Assistance required to identify errors made Deficits: Fully aware of deficits Attention Span: Appears intact Memory: Appears intact Problem Solving: Assistance required to identify errors made Communication: Intact Cognition Comments: Occasional cues for safety awareness and proper positioning with good return demo. General Assessment General Assessment Hearing: WFL Skin Integrity: surgical site not observed d/t bandaging and polar care Edema: edema to LLE Home Living Home Living Type of Home: House Lives With: Spouse () Home Adaptive Equipment: Walker rolling, Cane, Lift Chair Home Living Comments: Pt reports dtr available to assist for the next few days, not in good health and unable to assist. Home Layout: Two level, Full bath main level (does not access second level of home) Home Access: Stairs to enter with rails Entrance Stairs-Number of Steps: 3 Bathroom Shower/Tub: Walk-in shower Bathroom Toilet: Handicapped height Bathroom Equipment: Grab bars in shower, Built-in shower seat, Raised toilet seat with rails (pt has suction cup GB and plans to order shower chair) Prior Level of Function Prior Function Level of Clark: Independent with ADLs and functional transfers, Independent with homemaking with ambulation Prior Functional Mobility: Independent with cane Receives Help From: Family ADL Assistance: Independent Homemaking Assistance: Independent (pt reports cleaning has become more difficult recently) Vision Basic Assessment Vision - Basic Assessment Current Vision: Wears glasses all the time Activity Tolerance Activity Tolerance Ambulation comments: Pt takes few steps from EOB to chair with RW and Amadeo x2. Endurance: Stage II Stage II (METs 1.4-2.0) - Sittin-10 mins Number of Rest Breaks: 2 Activity Tolerance Comments: Pt with no SOB noted, demonstrates fatigue with minimal activity. Vitals WNL on RA. General Assessments Activity Tolerance Ambulation comments: Pt takes few steps from EOB to chair with RW and Amadeo x2. Endurance: Stage II Stage II (METs 1.4-2.0) - Sittin-10 mins Number of Rest Breaks: 2 Activity Tolerance Comments: Pt with no SOB noted, demonstrates fatigue with minimal activity. Vitals WNL on RA. Sensation Light Touch: No apparent deficits Sensation Comments: pt denies n/t Proprioception Proprioception: No apparent deficits Perception Inattention/Neglect: Appears intact Initiation: Cues to initiate tasks Motor Planning: Cues to use objects appropriately Perseveration: Not present Coordination Movements are Fluid and Coordina (more content not included)... [facility] 07-13-2023 Note ------ Attestation signed by Mynor Gallegos MD at 07/14/2023 7:31 PM I did not personally examine the patient. I discussed the case with the resident/fellow lan Galvan. Teaching Physician's Revisions: none ------ Orthopaedic Surgery Orthopaedic Surgery Progress Note Date: 07/13/2023 Surgery: 07/12/2023 - ARTHROPLASTY, KNEE, TOTAL (L) SUBJECTIVE: NAEON, pain controlled, denies CP/SOB. Patient denies any new complaints at this time. Patient seen by PT and noted to be unstable. Upon examination, she is unable to safely ambulate on her own at this time. May benefit from an additional day of evaluation. OBJECTIVE BP 98/64 (BP Location: Left arm, Patient Position: Sitting) Pulse 65 Temp 37 ???C (98.6 ???F) (Oral) Resp 18 Ht 1.676 m (5' 6 ) Wt 98.5 kg (217 lb 2.5 oz) SpO2 97% BMI 35.05 kg/m??? General: No acute distress, alert and cooperative with exam MSK: LLE: dressing/incision is clean dry and intact, compartments soft and compressible, no warmth, no erythema, motor intact DF/PF/EHL, wiggles toes, sensation intact t/sp/dp/s/s, good cap refill, and 2+ DP/PT Polar care in place Labs Lab Results Component Value Date WBC 9.44 07/13/2023 HGB 8.4 (L) 07/13/2023 HCT 27.0 (L) 07/13/2023 MCV 104.7 (H) 07/13/2023 PLT 147 (L) 07/13/2023 Lab Results Component Value Date GLU 97 12/26/2022 CALCIUM 10.0 07/13/2023 NA 138 07/13/2023 K 4.5 07/13/2023 CO2 19 (L) 07/13/2023 CL 111 (H) 07/13/2023 BUN 34 (H) 07/13/2023 CREATININE 1.47 (H) 07/13/2023 Lab Results Component Value Date INR 1.38 (H) 06/27/2023 Imaging: XR knee 1 or 2 views left Result Date: 07/12/2023 Total knee arthroplasty has been performed. The femoral and tibial components are excellent in position. No acute complication is seen. Follow-up is planned Electronically signed: Gertrude Gutierrez. No CT results found for the past 24 hours No MRI results found for the past 24 hours ASSESSMENT: Lizabeth Montanez is a 78 y.o. female s/p 1 Day Post-Op ARTHROPLASTY, KNEE, TOTAL (L) PLAN Patient will remain for one more day for further evaluation of her mobility Weightbearing as tolerated LLE DVT ppx: Per primary team Pain control: Multimodal Dressing: Do not remove dressing, may reinforce as necessary Lan Galvna MD Orthopaedic Surgery, PGY-1 Ortho Pager [phone] 07/13/23 8:50 AM I am available via [address] [employer] 6a-6p. May contact the on-call resident with any concerns via the Orthopaedic pager at any time. [facility] 07-12-2023 Note Patient: Lizabeth nicolas Procedure Summary Date: 07/12/23 Room / Location: [facility] OPERATING ROOM 02 / [facility] Operating Room Anesthesia Start: 1010 Anesthesia Stop: 1400 Procedure: ARTHROPLASTY, KNEE, TOTAL (Left: Knee) Diagnosis: Localized osteoarthritis of left knee (Localized osteoarthritis of left knee [M17.12]) Surgeons: Mynor Gallegos MD Responsible Provider: Eris Valverde MD Anesthesia Type: general ASA Status: 3 Anesthesia Type: general Vitals Value Taken Time BP 119/75 07/12/231912 Temp 36 ???C (96.8 ???F) 07/12/23 1402 Pulse 52 07/12/231916 Resp 14 07/12/231916 SpO2 100 % 07/12/231916 Vitals shown include unvalidated device data. Anesthesia Post Evaluation Patient location during evaluation: PACU Patient participation: complete - patient participated Level of consciousness: awake and alert Pain score: 0 Pain management: adequate Multimodal analgesia pain management approach Airway patency: patent Two or more strategies used to mitigate risk of obstructive sleep apnea Cardiovascular status: hemodynamically stable Respiratory status: room air and nonlabored ventilation Hydration status: euvolemic Patient is hemodynamically stable and is able to be discharged from PACU per anesthesia protocol. There were no known notable events for this encounter. [facility] 07-12-2023 Note Hospital Medicine History and Physical 07/12/2023 6:41 PM THE HOSPITALIST TEAM PREFERS TO USE [employer] FOR COMMUNICATION 7AM-7PM. IF I DO NOT RESPOND WITHIN 15 MINUTES, PLEASE PAGE ME/CALL THROUGH THE [employer]. FROM 7PM-7AM, PLEASE PAGE [phone](COVR) Chief Complaint S/P L TKA History of Present Illness Lizabeth Montanez is an 78 y.o. female who came from home with pastMedical history of atrial fibrillation, hypertension, LVH, pulmonary hypertension presents as a planned admission to the [facility] for a left total knee arthroplasty. Per report, procedure went smoothly. Plan for postoperative antibiotics, DVT prophylaxis and pain control. Patient is able to be weightbearing as tolerated with left lower extremity PT. Plan for discharge in a.m. During examination, patient is resting in bed comfortably. States she has some mild nausea but denies pain at this time. Review of System and Physical Exam Temp: [35.9 ???C (96.6 ???F)-36 ???C (96.8 ???F)] 36 ???C (96.8 ???F) Heart Rate: [49-124] 49 Resp: [10-25] 22 BP: (106-129)/(57-77) 116/60 Physical Exam Vitals reviewed. Constitutional: Appearance: She is normal weight. HENT: Head: Normocephalic and atraumatic. Mouth/Throat: Mouth: Mucous membranes are moist. Pharynx: Oropharynx is clear. Eyes: Conjunctiva/sclera: Conjunctivae normal. Pupils: Pupils are equal, round, and reactive to light. Cardiovascular: Rate and Rhythm: Bradycardia present. Rhythm irregular. Pulses: Normal pulses. Heart sounds: Normal heart sounds. Pulmonary: Effort: Pulmonary effort is normal. Breath sounds: Normal breath sounds. Abdominal: General: Abdomen is flat. Bowel sounds are normal. Palpations: Abdomen is soft. Musculoskeletal: Cervical back: Normal range of motion and neck supple. Comments: WILLIAM LLE due to dressing in place at this time Skin: General: Skin is warm and dry. Capillary Refill: Capillary refill takes less than 2 seconds. Neurological: General: No focal deficit present. Mental Status: She is alert and oriented to person, place, and time. Mental status is at baseline. Psychiatric: Mood and Affect: Mood normal. Behavior: Behavior normal. Thought Content: Thought content normal. Judgment: Judgment normal. Review of Systems Constitutional: Negative for chills, diaphoresis, fatigue and fever. HENT: Negative for congestion. Eyes: Negative for discharge. Respiratory: Negative for chest tightness and shortness of breath. Cardiovascular: Negative for chest pain and palpitations. Gastrointestinal: Positive for nausea. Negative for abdominal distention, abdominal pain, constipation, diarrhea and vomiting. Genitourinary: Negative for difficulty urinating. Musculoskeletal: Negative for arthralgias and back pain. LLE wrapped post op with ice pack in place Skin: Negative for color change, pallor, rash and wound. Psychiatric/Behavioral: Negative for agitation, behavioral problems, confusion, decreased concentration and dysphoric mood. All other systems reviewed and are negative. Problem List Patient Active Problem List Diagnosis Date Noted S/P total knee arthroplasty, left 07/12/2023 Localized osteoarthritis of left knee 04/16/2023 Palpitations 08/18/2013 Pulmonary hypertension ([facility]/HCC) 06/15/2013 Obesity 03/24/2010 Hypertensive disorder 03/15/2008 Chronic atrial fibrillation ([facility]/HCC) 03/09/2008 Left ventricular hypertrophy 03/09/2008 Abnormal stress test 12/20/2022 Nonrheumatic mitral valve regurgitation 11/07/2022 Assessment and Plan Lizabeth Montanez is an 78 y.o. female who came from home with pastMedical history of atrial fibrillation, hypertension, LVH, pulmonary hypertension presents as a planned admission to the [facility] for a left total knee arthroplasty. #S/p L TKA -Patient s/p left total knee arthroplasty with Dr. Gallegos on 07/12/2023 -Eliquis started by orthopedic team postoperatively and pain control has been ordered -Weightbearing as tolerated -PT/OT -Plan for DC in a.m. #Atrial Fibrillation, Continue home medications #HTN, continue home medications #Pulmonary HTN, continue home medications #LVH, continue home medications VTE Prophylaxis: Eliquis ----- Focus of this inpatient stay will remain on problems that need acute care setting for care. We will review available studies and will order additional labs, imaging and other studies as appropriate. As needed medicines are ordered as appropriate. VTE Prophylaxis will be ordered as appropriate. Please see above for management plan for individual hospital problems. Home medications are reviewed and will be continued as appropriate. Patient will be continued to be followed during this hospital stay by a member of [facility]. Past Medical History Past Medical History: Diagnosis Date Atrial fibrillation (CMS/HCC) Hypertension Left ventricula (more content not included)... [facility] 07-12-2023 Note Physical Therapy Name: Lizabeth Montanez Date of : 1945 Today's Date: 07/12/23 Pt is unable to be seen for therapy at this time secondary to Per RN, pt continues to be too lethargic for therapy evaluation at this time . Will check back and complete therapy session as appropriate. Check No Charge Time attempted: 1600 Yvonne Acevedo, PT, DPT [facility] 07-12-2023 Note Occupational Therapy Name: Lizabeth Montanez Date of : 1945 Today's Date: 07/12/23 Pt is unable to be seen for therapy at this time. Per RN, pt continues to be too lethargic for therapy evaluation at this time. Will check back and complete therapy session as appropriate and able. Check No Charge Time attempted: 1600 [facility] 07-12-2023 Note Airway Date/Time: 07/12/2023 10:23 AM Urgency: elective Airway not difficult General Information and Staff Patient location during procedure: OR Anesthesiologist: Eris Valverde MD Resident/MOVEMENT EDUCATION SPECIALIST/RUBENS: RUBENS Terrazas Performed: resident/MOVEMENT EDUCATION SPECIALIST/RUBENS Indications and Patient Condition Indications for airway management: anesthesia Spontaneous Ventilation: absent Sedation level: deep Preoxygenated: yes Patient position: sniffing Mask difficulty assessment: 1 - vent by mask Final Airway Details Final airway type: endotracheal airway Successful airway: ETT Cuffed: yes Successful intubation technique: video laryngoscopy Blade: Martínez Blade size: #3 ETT size (mm): 7.5 Cormack-Lehane Classification: grade I - full view of glottis Placement verified by: chest auscultation and capnometry Cuff volume (mL): 9 Measured from: lips ETT to lips (cm): 20 Number of attempts at approach: 1 Number of other approaches attempted: 0 [facility] 07-12-2023 Note Peripheral Block Patient location during procedure: pre-op Start time: 07/12/2023 9:55 AM End time: 07/12/2023 10:15 AM Reason for block: at surgeon's request and post-op pain management Staffing Performed: resident/DARNELL/RUBENS Anesthesiologist: Eris Valverde MD Resident/MOVEMENT EDUCATION SPECIALIST: Fermin Miller MD Preanesthetic Checklist Completed: patient identified, IV checked, site marked, risks and benefits discussed, monitors and equipment checked and pre-op evaluation Peripheral Block Patient position: supine Prep: ChloraPrep Patient monitoring: continuous pulse ox Block type: other (see comment) (Ipack Block) Laterality: left Injection technique: single-shot Guidance: ultrasound guided Local infiltration: bupivicaine Needle Needle gauge: 22 G Needle length: 2 in Needle localization: ultrasound guidance Medications Administered bupivacaine HCl (Marcaine) 0.5 % (5 mg/mL) injection - injection 50 mg - 07/12/2023 9:55:00 AM Assessment Injection assessment: negative aspiration for heme, no paresthesia on injection and incremental injection Heart rate change: no Slow fractionated injection: yes [facility] 07-12-2023 Note Peripheral Block Patient location during procedure: pre-op Start time: 07/12/2023 9:53 AM Reason for block: primary anesthetic, at surgeon's request and post-op pain management Staffing Performed: resident/MOVEMENT EDUCATION SPECIALIST/CAA Anesthesiologist: Eris Valverde MD Resident/MOVEMENT EDUCATION SPECIALIST: Fermin Miller MD Preanesthetic Checklist Completed: patient identified, IV checked, site marked, risks and benefits discussed, surgical consent, monitors and equipment checked, pre-op evaluation and timeout performed Peripheral Block Patient position: supine Prep: ChloraPrep Patient monitoring: continuous pulse ox and heart rate Block type: adductor canal block Laterality: left Injection technique: single-shot Guidance: ultrasound guided Local infiltration: bupivicaine Needle Needle gauge: 18 G Needle localization: anatomical landmarks, nerve stimulator, paresthesias and ultrasound guidance Test dose: negative Medications Administered bupivacaine HCl (Marcaine) 0.5 % (5 mg/mL) injection - injection 100 mg - 07/12/2023 9:53:00 AM fentaNYL (SUBLIMAZE) IV - intravenous 50 mcg - 07/12/2023 9:53:00 AM midazolam (VERSED) IV - intravenous 2 mg - 07/12/2023 9:53:00 AM Assessment Injection assessment: negative aspiration for heme, local visualized surrounding nerve on ultrasound, no paresthesia on injection, incremental injection and transient paresthesias Paresthesia pain: immediately resolved Heart rate change: no [facility] 07-12-2023 Note Patient: Lizabeth nicolas Procedure Information Date/Time: 07/12/23 1000 Procedure: ARTHROPLASTY, KNEE, TOTAL (Left: Knee) - BIOMET NOTIFIED 07/04 Location: [facility] OPERATING ROOM 02 / [facility] Operating Room Surgeons: Mynor Gallegos MD Relevant Problems Cardio (+) Chronic atrial fibrillation (CMS/HCC) (+) Hypertensive disorder (+) Nonrheumatic mitral valve regurgitation (+) Pulmonary hypertension (CMS/HCC) 06/06/[address] Ugalde: Moderate risk for procedure and can proceed without additional testing. 06/24/[address] Bone DENISE 01/02/23: Left Ventricle: The left ventricle appears normal in size. Global left ventricular systolic function is normal. The EF is 55 % visually. Left ventricular wall thickness is normal. No regional wall motion abnormality. Right Ventricle: The right ventricle appears normal in size. Right ventricular systolic function appears normal. Left Atrium: The left atrium is moderately enlarged. Left Atrium Appendage: Normal left atrial appendage, no thrombus seen. Right Atrium: The right atrium appears enlarged. Mitral Valve: Mild to moderate mitral regurgitation. Aortic Valve: Mild aortic valve regurgitation Cardiac Cath 12/20/22: Final Impressions: -Patent coronary arteries -Mildly elevated right sided heart pressures ??? Clinical information reviewed: Tobacco Allergies Meds Med Hx Surg Hx Fam Hx Soc Hx Physical Exam Airway Mallampati: II TM distance: >3 FB Neck ROM: full Cardiovascular Rate: abnormal Comments: tachycardic Dental Comments: No loose teeth Pulmonary - normal exam Abdominal Anesthesia Plan ASA 3 general (Standard ASA monitoring, Adductor canal block, Ipack block) The patient is not a current smoker. intravenous induction Anesthetic plan and risks discussed with patient. Additional Equipment Requests [facility] 06-27-2023 Note 06/06/[address] Benedict arance [address] Dr[address] Ugalde: Moderate risk for procedure and can proceed without additional testing. 06/24/[address] Bone. [facility] 06-27-2023 Note Orthopedic Surgery Subjective Pre-op Exam of the Left Knee 06/27/23 Patient is here for preoperative visit for left total knee arthroplasty scheduled for 07/12/2023 she reports that her symptoms are unchanged from prior office visit as she continues to have significant pain. She has obtained clearances from her PCP and cardiology. Patient is taking Eliquis for atrial fibrillation, although she has received clearance from cardiology we will follow-up to determine when patient should stop taking Eliquis prior to surgery. 04/11/23 Lizabeth Montanez is a 78 y.o. female presenting for evaluation of left knee osteoarthritis. She says that her left knee is disintegrating . She says that she has been dealing with significant left knee pain for the past 5 years. She has tried over the counter pain medication, therapy, and CSI injections, none of which have provided significant relief for her pain. She takes 200 mg of Celebrex 3x daily which provides a small amount of relief. She reports that weather will maker her knee worse, namely rainy or ominous weather. She takes Eliquis for Afib. She states that she had a penicillin allergy when she was a child. Review of Systems unremarkable aside from what is noted in HPI Joint pain Patient History Past Surgical History: Procedure Laterality Date CARDIOVERSION Past Medical History: Diagnosis Date Atrial fibrillation (CMS/HCC) Hypertension Pulmonary hypertension (CMS/HCC) Objective General: Body mass index is 32.28 kg/m???. No acute distress, comfortable Respiratory: Unlabored breathing with normal rate, no cough Cardiovascular: Warm well perfused extremities Psych: Appropriate mood behavior Left Knee: Full ROM in extension and flexion. 4/5 strength in each. Joint line is palpable with notable medial subluxation of the femur. (-) a/p drawer tests (-) varus/valgus stress tests Imaging personally reviewed: X rays of the Left knee 3 views obtained today in clinic showed Left knee advanced Osteoarthritis with bone on bone arthritis severe varus deformity and subluxation Assessment/Plan Lizabeth Montanez is a 78 y.o. female presenting for evaluation of osteoarthritis of the left knee.patient with significant deformity and failed conservative treatment Discussed with the patient all the risks and benefits of surgery as well as the nonsurgical options. Discussed risk of anesthesia, Infection, bleeding, injury to nerves and vessels, injury to surrounding structures, stiffness, persistence of pain, blood clots to the legs or the lungs, medical complications and the need for revision surgery. Patient understood the recommendations and possible risks and elected to proceed with surgery. Informed consent was obtained. -06/06/[address] Ugalde: Moderate risk for procedure and can proceed without additional testing. 06/24/[address] Bone. -Left total knee arthroplasty 07/12/2023 Riki Le MD Orthopaedic Surgery, PGY-1 By using the attestations below, the signing clinician agrees that I have read and verify that the documentation has been personally reviewed by me and ensure that the documentation accurately reflects the encounter. GC: I personally saw this patient on the day of the encounter, performed the persaud portion(s) of the service and participated in the management and confirm the resident's documentation. Please note there may be an additional personal documentation from me. [facility] 06-26-2023 Note Pt has total knee durbin rgery scheduled for 07/12. SW will follow with DME orders and HHC as needed. [facility] 06-26-2023 Note Spoke with patient r egarding pre-operative education and discharge planning for her upcoming procedure with Dr. Gallegos (07/12) and patient states that she would prefer to go home at discharge from [facility]. Patient states that her will provide support for her as well as any transportation that is needed. Patient states that there are three steps in total to get into her house and then everything is on the same floor. I informed the patient that she will be receiving signed orders for a rolling walker, shower chair, and raised toilet seat at her pre-operative appointment tomorrow. Patient is unsure if she would prefer to have in-home or outpatient physical therapy. All questions were answered and I provided my contact information for any additional questions/concerns that arise in the meantime. [facility] 04-11-2023 Note Orthopedic Surgery Subjective Pain of the Left Knee (Discuss surgical options, would like TKA ) 04/11/23 Lizabeth Montanez is a 78 y.o. female presenting for evaluation of left knee osteoarthritis. She says that her left knee is disintegrating . She says that she has been dealing with significant left knee pain for the past 5 years. She has tried over the counter pain medication, therapy, and CSI injections, none of which have provided significant relief for her pain. She takes 200 mg of Celebrex 3x daily which provides a small amount of relief. She reports that weather will maker her knee worse, namely rainy or ominous weather. She takes Eliquis for Afib. She states that she had a penicillin allergy when she was a child. Review of Systems unremarkable aside from what is noted in HPI Joint pain Patient History Past Surgical History: Procedure Laterality Date CARDIOVERSION Past Medical History: Diagnosis Date Atrial fibrillation (CMS/HCC) Hypertension Pulmonary hypertension (CMS/HCC) Objective General: Body mass index is 34.61 kg/m???. No acute distress, comfortable Respiratory: Unlabored breathing with normal rate, no cough Cardiovascular: Warm well perfused extremities Psych: Appropriate mood behavior Left Knee: Full ROM in extension and flexion. 4/5 strength in each. Joint line is palpable with notable medial subluxation of the femur. (-) a/p drawer tests (-) varus/valgus stress tests Imaging personally reviewed: X rays of the Left knee 3 views obtained today in clinic showed Left knee advanced Osteoarthritis with bone on bone arthritis severe varus deformity and subluxation Assessment/Plan Lizabeth Montanez is a 78 y.o. female presenting for evaluation of osteoarthritis of the left knee.patient with significant deformity and failed conservative treatment - We discussed surgical option and patient expressed interest in undergoing TKA. - Discussed that patient has failed conservative measurements. - Discussed need for her to obtain clearance letter from cardiology and PCP and she was given the clearance letter. - We will schedule a date for surgery today pending pre op medical clearances. Discussed with the patient all the risks and benefits of surgery as well as the nonsurgical options. Discussed risk of anesthesia, Infection, bleeding, injury to nerves and vessels, injury to surrounding structures, stiffness, persistence of pain, blood clots to the legs or the lungs, medical complications and the need for revision surgery. Patient understood the recommendations and possible risks and elected to proceed with surgery. Informed consent was obtained. MD Hugh Cavazos MS3 [facility] 04/11/23 10:43 AM As the teaching physician, I have personally performed or re-performed the history of present illness, physical exam and medical decision-making activities of the encounter and verified the medical student's documentation. I made pertinent changes as necessary to ensure accurate documentation. Additional Comments: none [facility] 01-28-2023 Note UTP CARDIOLOGY PROGR ESS NOTE HPI Patientis a 77 yo female with a past medical history including chronic afib, hypertension, and LVH. Cardiology clinic for routine follow-up post cardiac catheterization and DENISE. Patient states that she is doing well. She adamantly denies any cardiac complaints or concerns. Patient denies any chest pain or shortness of breath. Patient denies any lower extremity edema, orthopnea, or proximal nocturnal dyspnea. No near-syncope or syncope. No dizziness or lightheadedness. Cardiac cath demonstrated patent coronary arteries with mildly elevated right sided pressures (mean PA 25, PCWP 16). DENISE demonstrated mild to moderate MR and mild AI. No complaints or concerns per patient. She feels well. She is taking medications as prescribed. No bleeding issues. Review of Systems 10 point ROS is performed and is negative unless otherwise specified in HPI Visit Vitals BP 138/76 (BP Location: Left arm, Patient Position: Sitting, BP Cuff Size: Large adult) Pulse 70 Ht 1.651 m (5' 5 ) Wt 94.7 kg (208 lb 12.8 oz) SpO2 98% BMI 34.75 kg/m??? OB Status Postmenopausal Smoking Status Never BSA 2.08 m??? Medications: Current Outpatient Medications on File Prior to Visit Medication Sig Dispense Refill apixaban (Eliquis) 5 mg tablet Take 1 tablet (5 mg) by mouth in the morning and at bedtime. (Patient taking differently: Take 5 mg by mouth in the morning and at bedtime.) 60 tablet 11 bisoprolol (Zebeta) 10 mg tablet Take 10 mg by mouth in the morning. celecoxib (CeleBREX) 200 mg capsule Take 200 mg by mouth in the morning and at bedtime. dilTIAZem (Cardizem) 60 mg immediate release tablet Take 30 mg by mouth in the morning and at bedtime. ferrous sulfate 325 (65 Fe) MG tablet Take 65 mg by mouth in the morning and at bedtime. hydrALAZINE (Apresoline) 100 mg tablet Take 50 mg by mouth in the morning and at bedtime. hydroCHLOROthiazide (HYDRODiuril) 50 mg tablet Take 25 mg by mouth in the morning. sacubitriL-valsartan (Entresto) 24-26 mg tablet Take 1 tablet by mouth in the morning and at bedtime. No current facility-administered medications on file prior to visit. Physical Exam: Constitutional: Appearance: Normal appearance. NAD, obese HENT: Head: Normocephalic and atraumatic. Nose: Nose normal. Mouth/Throat: Mouth: Mucous membranes are moist. Eyes: Extraocular Movements: Extraocular movements intact. Conjunctiva/sclera: Conjunctivae normal. Neck: Vascular: No JVD. Cardiovascular: Rate and Rhythm: Irreg/Irreg- rate controlled Pulses: Peripheral pulses are intact and symmetrical bilaterally . Heart sounds: Normal heart sounds, S1 normal and S2 normal. Pulmonary: Effort: Pulmonary effort is normal. Breath sounds: Normal breath sounds. Abdominal: General: Bowel sounds are normal. Palpations: Abdomen is soft. Musculoskeletal: General: Normal range of motion. Cervical back: Normal range of motion. Right lower leg: No edema. Left lower leg: No edema. Skin: General: Skin is warm and dry. Capillary Refill: Capillary refill takes less than 2 seconds. Neurological: General: No focal deficit present. Mental Status: She is alert and oriented to person, place, and time. Psychiatric: Mood and Affect: Mood normal. Behavior: Behavior normal. Thought Content: Thought content normal. Judgment: Judgment normal. Labs: 02/20/22 Cr 1.5 Last lab values have been reviewed Patient states Dr. Bone has been monitoring her labs annually and at last check her renal function was improved Assessment/Plan: Chronic atrial fibrillation (CMS/HCC) On Eliquis for stroke prophylaxis Heart rate well controlled continue bisprolol and diltiazem Hypertensive disorder Continue current medication regimen. Bp well controlled per patient. Pulmonary hypertension (CMS/HCC) RVSP 76 mm Hg on echo RHC performed and RVSp was 38, mean PA was 25, and PCWP was 16. Palpitations Admits occasional palpitations but states is no worse than usual continue all medications Mild to mod MR On DENISE Continue current medications Repeat echo in 1 year, or sooner as needed Plan of care discussed with patient. All questions were answered. Patient voices understanding and is agreeable with current plan. Patient was educated on red flag symptoms. Strict return precautions were provided. Patient verbalizes understanding Yeni Ugalde MD Addendum 06/06/2023: Patient is requesting perioperative restratification prior to orthopedic surgery. She denies any cardiac complaints or concerns. No chest pain or shortness of breath. She is able to complete greater than 4 METS of activity without any cardiac symptoms. She is moderate risk for procedure and can proceed without additional testing at the present time. Patient may hold Eliquis for 48 hours prior to procedure if needed and should resume anticoagulation as soon as able. Patient is aware of incre (more content not included)... [facility] 01-02-2023 Note Pt. Currently in DENISE procedure will resume post op checks once procedure complete. [facility] 01-02-2023 Note Patient: Lizabeth nicolas Procedure Information Date/Time: 01/02/23 1050 Procedures: CORONARY ANGIOGRAPHY Right heart cath Location: [facility] (Cath) Providers: Yeni Ugalde MD Clinical information reviewed: Tobacco Allergies Meds Med Hx Surg Hx OB Status Fam Hx Soc Hx Physical Exam Airway Mallampati: III Cardiovascular Rhythm: regular Rate: normal Dental Pulmonary Breath sounds clear to auscultation Abdominal Abdomen: soft Anesthesia Plan ASA 3 other (Moderate sedation) Anesthetic plan and risks discussed with patient. Use of blood products discussed with patient who consented to blood products. Plan discussed with fellow and attending. Additional Equipment Requests [facility] 01-02-2023 Note Patient: Lizabeth nicolas Procedure Information Date/Time: 01/02/23 1050 Procedure: CORONARY ANGIOGRAPHY Location: [facility] / [facility] (Cath) Providers: Yeni Ugalde MD Clinical information reviewed: Tobacco Allergies Meds Med Hx Surg Hx OB Status Fam Hx Soc Hx Physical Exam Airway Mallampati: III Cardiovascular - normal exam Dental Pulmonary - normal exam Abdominal - normal exam Anesthesia Plan ASA 3 other (Conscious sedation) Anesthetic plan and risks discussed with patient. Use of blood products discussed with patient who consented to blood products. Plan discussed with fellow. Additional Equipment Requests [facility] 11-14-2022 Note neph [facility] 11-07-2022 Note CASE [facility] 11-07-2022 Note UTP CARDIOLOGY PROGR ESS NOTE HPI Patientis a 77 yo female with a past medical history including chronic afib, hypertension, and LVH. Patient recently had an echocardiogram performed due to abnormal BNP on lab work. Echocardiogram demonstrated moderate to severe mitral regurgitation with RVSP of 76 mmHg. She was asked to follow up with Cardiology. Patient states that she has been doing well from a cardiac standpoint. She adamantly denies any chest pain or shortness of breath. She denies any signs/symptoms of decompensated heart failure. No lower extreme edema, orthopnea, paroxysmal nocturnal dyspnea. She states that she is active, she denies that she has any exertional symptoms. Review of Systems Cardiovascular: Positive for palpitations. Musculoskeletal: Positive for arthritis, back pain and joint pain. All other systems reviewed and are negative. Visit Vitals BP 128/79 (BP Location: Left arm, Patient Position: Sitting) Pulse 58 Ht 1.651 m (5' 5 ) Wt 96.2 kg (212 lb) SpO2 97% BMI 35.28 kg/m??? Smoking Status Never BSA 2.1 m??? Medications: Current Outpatient Medications on File Prior to Visit Medication Sig Dispense Refill apixaban (Eliquis) 5 mg tablet Take 1 tablet by mouth in the morning and at bedtime. bisoprolol (Zebeta) 10 mg tablet Take 1 tablet by mouth in the morning. celecoxib (CeleBREX) 200 mg capsule Take 1 capsule by mouth in the morning and at bedtime. dilTIAZem (Cardizem) 60 mg immediate release tablet Take 0.5 tablets by mouth in the morning and at bedtime. ferrous sulfate 325 (65 Fe) MG tablet Take 1 tablet by mouth in the morning and at bedtime. hydrALAZINE (Apresoline) 100 mg tablet Take 50 mg by mouth in the morning and at bedtime. hydroCHLOROthiazide (HYDRODiuril) 50 mg tablet Take 25 mg by mouth in the morning. sacubitriL-valsartan (Entresto) 24-26 mg tablet Take 1 tablet by mouth in the morning and at bedtime. No current facility-administered medications on file prior to visit. Physical Exam: Constitutional: Appearance: Normal appearance. NAD, obese HENT: Head: Normocephalic and atraumatic. Nose: Nose normal. Mouth/Throat: Mouth: Mucous membranes are moist. Eyes: Extraocular Movements: Extraocular movements intact. Conjunctiva/sclera: Conjunctivae normal. Neck: Vascular: No JVD. Cardiovascular: Rate and Rhythm: Irreg/Irreg- rate controlled Pulses: Peripheral pulses are intact and symmetrical bilaterally . Heart sounds: Normal heart sounds, S1 normal and S2 normal. Pulmonary: Effort: Pulmonary effort is normal. Breath sounds: Normal breath sounds. Abdominal: General: Bowel sounds are normal. Palpations: Abdomen is soft. Musculoskeletal: General: Normal range of motion. Cervical back: Normal range of motion. Right lower leg: No edema. Left lower leg: No edema. Skin: General: Skin is warm and dry. Capillary Refill: Capillary refill takes less than 2 seconds. Neurological: General: No focal deficit present. Mental Status: She is alert and oriented to person, place, and time. Psychiatric: Mood and Affect: Mood normal. Behavior: Behavior normal. Thought Content: Thought content normal. Judgment: Judgment normal. Labs: 02/20/22 Cr 1.5 Last lab values have been reviewed Patient states Dr. Bone has been monitoring her labs annually and at last check her renal function was improved CV Testing: Echo 11/01/2022 EF 55-60% No significant wall motion abnormalities Severe biatrial enlargement The right ventricle is normal in size and systolic function Severely elevated right sided pressures: RVSP 76 mmHg Moderate to severe mitral regurgitation Mild aortic valve stenosis Mild to moderate aortic valve regurgitation Assessment/Plan: Chronic atrial fibrillation (CMS/HCC) On Eliquis for stroke prophylaxis Heart rate well controlled continue bisprolol and diltiazem Hypertensive disorder Continue current medication regimen. Bp well controlled per patient. Pulmonary hypertension (CMS/HCC) RVSP 76 mm Hg however she denies any symptoms Plan for RHC Palpitations Admits occasional palpitations but states is no worse than usual continue all medications Moderate to Severe MR Plan for DENISE and R/L/Cors for better evaluation/management Plan of care discussed with patient. All questions were answered. Patient voices understanding and is agreeable with current plan. Patient was educated on red flag symptoms. Strict return precautions were provided. Patient verbalizes understanding Yeni Ugalde MD [facility] 11-07-2022 Note Patient here for fol low up abnormal echo per Zohreh Serrato CNP. Echo was ordered for critically high pro BNP (4315). She also had routine labs 2 weeks ago. Still denies chest pain, SOB, and bleeding on Eliquis. Review of Systems Cardiovascular: Positive for palpitations ( not often ). Hematologic/Lymphatic: Bruises/bleeds easily. Musculoskeletal: Positive for arthritis, back pain and joint pain. All other systems reviewed and are negative. [facility] Summary Purpose Family History No Family History Records FoundNo Family History Records FoundNo Family History Records FoundNo Family History Records Found Advance Directives No Advanced Directives Records FoundNo Advanced Directives Records FoundNo Advanced Directives Records FoundNo Advanced Directives Records Found Additional Source Comments INFORMATION SOURCE (unrecogn ized section and content) DATE CREATED AUTHOR 03/24/2018 [facility] DATE CREATED AUTHOR AUTHOR'S ORGANIZ ATION 03/26/2018 [facility] DATE CREATED AUTHOR AUTHOR'S ORGANIZ ATION 03/08/2023 [facility] [employer] [email or web address] DATE CREATED AUTHOR AUTHOR'S ORGANIZ ATION 09/15/2023 [facility] FOR RECORDS PERTAINING TO PATIENTS WHO ARE OR HAVE BEEN ENROLLED IN A CHEMICAL DEPENDENCY/SUBSTANCEABUSE PROGRAM, SOME INFORMATION MAY BE OMITTED. This clinical summary was aggregated from multiple sources. Caution should be exercised in using it in the provision of clinical care. This summary normalizes information from multiple sources, and as a consequence, information in this document may materially change the coding, format and clinical context of patient data. In addition, data may be omitted in some cases. CLINICAL DECISIONS SHOULD BE BASED ON THE PRIMARY CLINICAL RECORDS. [facility] [employer] [facility]. provides no warranty or guarantee of the accuracy or completeness of information in this document.
== END 2023-08-20 12:03 | disposition home or self-care (01) ==
LOC: LAB 12:02
PROVIDERS: PCP Family Medicine; Visit Provider Family Medicine
DX: J01.11 Acute recurrent frontal sinusitis (principal)
CPT/HCPCS: 87811

== ENCOUNTER 2023-08-27 09:01 | Outpatient (OUT) | payer MEDICARE, SELFPAY ==
--- NOTE | 2023-08-27 11:14 | CA_ITS ---
Patient Name: JELLY MONTANEZ MR#: [id number] : 1945 Exam Date: 08/27/2023 Ordering Doctor: YENI SANTIAGO ECHOCARDIOGRAM REPORT PROCEDURE: CA ECHO DOPPLER COMPLETE INDICATIONS: Nonrheumatic mitral valve regurgitation, atrial fibrillation, hypertension COMPARISON: None. DESCRIPTION: COMPLETE ECHOCARDIOGRAM Real-time transthoracic echocardiography with 2D, M-mode, spectral and color flow Doppler performed. QUALITY: Technical quality was good. LEFT VENTRICLE: Moderate dilatation. Borderline left ventricular hypertrophy. Normal systolic function. LV EF: Normal left ventricular ejection fraction, (55%). DIASTOLIC: Not adequately assessed due to heart rhythm. ATRIAL SEPTUM: Visually appears intact. LEFT ATRIUM: Severe dilatation. RIGHT ATRIUM: Severe dilatation. RIGHT VENTRICLE: Mild dilatation. Normal right ventricular systolic function. TRICUSPID VALVE: Normal mobility and thickness. No stenosis with mild regurgitation. Doppler studies reveal moderately (45-60) elevated right sided pressures. RVSP 53 mmHg MITRAL VALVE: Normal mobility and thickness. No evidence of mitral valve stenosis. Mild mitral annular calcification. Mild to moderate mitral regurgitation. AORTIC VALVE: Normal trileaflet appearance. Mildly calcified aortic valve. Normal leaflet mobility. No evidence of aortic valve stenosis. Mild aortic regurgitation. AORTIC ROOT: Normal diameter and appearance. PULMONIC VALVE: Normal thickness and mobility. No stenosis. Trivial regurgitation. PERICARDIUM: No evidence of pericardial effusion. IVC: IVC is dilated (2.6 cm) with no collapse. PLEURA: CONCLUSION: 1. Normal left ventricular systolic function. LVEF is 55%. 2. Mildly dilated right ventricle with normal systolic function. 3. Severe biatrial dilatation. 4. Mild to moderate mitral regurgitation. 5. Mild tricuspid regurgitation. 6. Moderately elevated right-sided pressures. RVSP is 53 mmHg. Adult Echocardiography Procedure Report Left Ventricle LVEDD (3.7 - 5.6 cm): 5.85 cm LVESD (2.2 - 4.0 cm): 3.48 cm LVIVS thickness (0.6 - 1.2 cm): 0.86 cm LVPW thickness (0.5 - 1.0 cm): 0.96 cm LVOT Max Gradient: 4.98 mm[Hg] LVOT Area (cm2): 1.12 m/s Peak Velocity (LVOT): 1.12 m/s Mean Velocity (LVOT): 0.77 m/s LVOT Diameter 2.23 cm Left Atrium LA Volume Index (2D A2C): 78.66 ml/m2 Left Atrium Systolic Dimension: 5.02 cm Mitral Valve Mitral Valve E-Wave Peak Velocity: 1.24 m/s Right Ventricle Aorta AO Root Diam: 3.04 cm Ascending Ao Diam: 3.05 cm Aortic Valve AoV Area (Peak Richar): 2.04 cm2, 2.04 cm2 AoV Area (VTI): 2.03 cm2, 2.03 cm2 Peak Velocity(Antegrade Flow): 2.13 m/s Peak Gradient(Antegrade Flow): 18.17 mm[Hg] Mean Velocity(Antegrade Flow): 1.39 m/s Mean Gradient(Antegrade Flow): 9.03 mm[Hg] Velocity Time Integral: 47.63 cm Tricuspid Valve Peak Velocity (Regurgitant Flow): 2.23 m/s, 3.09 m/s Pulmonic Valve Peak Velocity: 1.06 m/s Peak Gradient: 5.15 mm[Hg], 3.82 mm[Hg] Right Atrium Right Atrium Systolic Pressure: 128.96 ml, 128.96 ml Dictated by: Ruslan Mendenhall M.D. on 08/28/2023 at 20:07 Approved by: Ruslan Mendenhall M.D. on 08/28/2023 at 20:11
== END 2023-08-27 09:02 | disposition home or self-care (01) ==
LOC: CARD 09:01
PROVIDERS: PCP Family Medicine; Visit Provider Internal Medicine Cardiovascular Disease
DX: I08.1 Rheumatic disorders of both mitral and tricuspid valves (principal)
CPT/HCPCS: 93306

== ENCOUNTER 2023-08-30 09:04 | Outpatient (RCR) | payer MEDICARE, SELFPAY | END 2023-09-29 07:49 | disposition home or self-care (01) | LOC: PT 09:04 | PROVIDERS: PCP Family Medicine | DX: Z96.652 Presence of left artificial knee joint (principal) | CPT/HCPCS: 97110; 97112; 97161; 97530 ==

== ENCOUNTER 2024-02-18 14:12 | Outpatient (RCR) | payer MEDICARE, SELFPAY | END 2024-03-14 11:51 | disposition home or self-care (01) | LOC: PT 14:12 | PROVIDERS: PCP Family Medicine; Visit Provider Student in an Organized Health Care Education/Training Program | DX: M25.561 Pain in right knee (principal); Z96.651 Presence of right artificial knee joint | CPT/HCPCS: 97110; 97112; 97140; 97161 ==

== ENCOUNTER 2024-03-27 12:55 | Outpatient (OUT) | payer MEDICARE, SELFPAY ==
--- NOTE | 2024-03-27 13:00 | CA_ITS ---
Patient Name: JELLY MONTANEZ MR#: [id number] : 1945 Exam Date: 03/27/2024 Ordering Doctor: RIMA SERRATO ECHOCARDIOGRAM REPORT PROCEDURE: CA ECHO DOPPLER COMPLETE INDICATIONS: Left ventricular hypertrophy, mitral regurgitation COMPARISON: None. DESCRIPTION: COMPLETE ECHOCARDIOGRAM Real-time transthoracic echocardiography with 2D, M-mode, spectral and color flow Doppler performed. QUALITY: Technical quality was good. LEFT VENTRICLE: Normal chamber size. Borderline left ventricular hypertrophy. Low normal systolic function. LV EF: Normal left ventricular ejection fraction, (50%). DIASTOLIC: Not adequately assessed due to heart rhythm. ATRIAL SEPTUM: LEFT ATRIUM: Severe dilatation. RIGHT ATRIUM: Severe dilatation. RIGHT VENTRICLE: Mild dilatation. Normal right ventricular systolic function. TRICUSPID VALVE: Normal mobility and thickness. No stenosis with trivial regurgitation. Doppler studies reveal mildly (35-45) elevated right sided pressures. RVSP 37 mmHg MITRAL VALVE: Normal mobility and thickness. No evidence of mitral valve stenosis. Mild mitral annular calcification. Moderate mitral regurgitation. AORTIC VALVE: Normal trileaflet appearance. Mildly calcified aortic valve. Normal leaflet mobility. No evidence of aortic valve stenosis. Mild to moderate aortic regurgitation. AORTIC ROOT: Normal diameter and appearance. Ascending aorta is normal in size. PULMONIC VALVE: Normal thickness and mobility. No stenosis. Trivial regurgitation. PERICARDIUM: No evidence of pericardial effusion. IVC: Collapses with inspirations. IVC is normal in size. PLEURA: CONCLUSION: 1. The left ventricle is normal in size and exhibits low normal systolic function. LVEF is 50%. 2. The right ventricle is mildly dilated with normal systolic function. 3. Moderate mitral regurgitation. 4. Mild to moderate aortic regurgitation. 5. Mildly elevated right sided pressures. Adult Echocardiography Procedure Report Left Ventricle LVEDD (3.7 - 5.6 cm): 4.83 cm LVESD (2.2 - 4.0 cm): 3.86 cm LVIVS thickness (0.6 - 1.2 cm): 0.99 cm LVPW thickness (0.5 - 1.0 cm): 1.10 cm e': 0.11 m/s E - e': 10.16 LVOT Max Gradient: 5.24 mm[Hg] LVOT Area (cm2): 1.14 m/s Peak Velocity (LVOT): 1.14 m/s Mean Velocity (LVOT): 0.75 m/s LVOT Diameter 2.12 cm Left Atrium LA Volume Index (2D A2C): 49.09 ml/m2 Left Atrium Systolic Dimension: 5.09 cm Mitral Valve MV E to A Ratio: 5.01 Mitral Valve A-Wave Peak Velocity: 0.23 m/s Mitral Valve E-Wave Peak Velocity: 1.15 m/s Right Ventricle Aorta AO Root Diam: 2.80 cm Ascending Ao Diam: 2.59 cm Aortic Valve AoV Area (Peak Richar): 2.24 cm2, 2.24 cm2 AoV Area (VTI): 2.30 cm2, 2.30 cm2 Peak Velocity(Antegrade Flow): 1.80 m/s Peak Gradient(Antegrade Flow): 13.01 mm[Hg] Mean Velocity(Antegrade Flow): 1.25 m/s Mean Gradient(Antegrade Flow): 7.15 mm[Hg] Velocity Time Integral: 39.11 cm Tricuspid Valve Peak Velocity (Regurgitant Flow): 2.90 m/s Pulmonic Valve Mean Gradient: 1.91 mm[Hg] Mean Velocity: 0.63 m/s Peak Velocity: 1.04 m/s, 1.13 m/s Peak Gradient: 5.15 mm[Hg], 4.29 mm[Hg] Right Atrium Right Atrium Systolic Pressure: 92.61 ml, 92.61 ml Dictated by: Ruslan Mendenhall M.D. on 03/27/2024 at 21:33 Approved by: Ruslan Mendenhall M.D. on 03/27/2024 at 21:40
== END 2024-03-27 12:56 | disposition home or self-care (01) ==
LOC: CARD 12:55
PROVIDERS: PCP Family Medicine; Visit Provider Nurse Practitioner
DX: I51.7 Cardiomegaly (principal); I34.0 Nonrheumatic mitral (valve) insufficiency
CPT/HCPCS: 93306

== ENCOUNTER 2024-05-29 06:46 | Outpatient (OUT) | payer MEDICARE, SELFPAY ==
--- OUTSIDE RECORDS SUMMARY | 2024-05-29 06:50 | XMS_ITS | CCD ---
Author Organization [facility] Care Team Providers Care Supervisor Plate Forming Name Role Phone PHYSICIAN, DEFAULT Unavailable Unavailable PHYSICIAN, DEFAULT Unavailable Unavailable HOYNICKOISAK Unavailable Unavailable HOY ., DR PARISI Primary [...] HOY ., DR PARISI Primary Care Unavailable ZIJOSEER, DR SHILA Serrato Consulting Unavailable ALGHOTHANI, MOHAMAD Admitting Unavailable HOY ., DR PARISI Primary Care Unavailable ALGHOTHANI, MOHJUDAH Attending Unavailable ALGHOTHANI, MOHANA MARÍAD Consulting Unavailable HOY ., DR PARISI Admitting Unavailable HOY ., DR PARISI Primary Care Unavailable HOY ., DR PARISI Attending Unavailable HOY ., DR PARISI Consulting Unavailable PAMELA PECK Consulting Unavailable KARL GALLEGOSD Attending Unavailable ALGHOTHANI, MOHAMAD Attending Unavailable AKIRA, MYNOR Referring Unavailable AKIRA, MYNOR Referring Unavailable AKIRA, MYNOR Attending Unavailable AKIRA, MYNOR Admitting Unavailable ROMAN, JOHNNIE Attending Unavailable ROMAN, JOHNNIE Admitting Unavailable AKIRA, MYNOR Attending Unavailable AKIRA, MYNOR Referring Unavailable AKIRA, MYNOR Referring Unavailable AKIRA, MYNOR Referring Unavailable ALGHOTHANI, MOHAMAD Attending Unavailable ROJELIO, LILIA Attending Unavailable AKIRA, MYNOR Attending Unavailable AKIRA, MYNOR Attending Unavailable AKIRA, MYNOR Attending Unavailable AKIRA, MYNOR Attending Unavailable AKIRA, MYNOR Attending Unavailable AKIRA, MYNOR Referring Unavailable AKIRA, MYNOR Referring Unavailable Allergies Allergy Classification Reported Allergen(s) [...] disease (3 sources) Atherosclerotic heart disease of viejas coronary artery without angina pectoris; Translations: [ASHD [place] CA W/O ANGINA PECTORIS] Onset: 10-31-2022 Chronic [...] D DEFICIENCY UNSPECIFIED] Onset: 10-29-2022 Chronic Osteoarthritis (4 sources) Unilateral primary osteoarthritis, right knee; Translations: [Unilateral primary osteoarthritis, left knee] Onset: 04-16-2023 Chronic Osteoporosis (4 sources) Age-related osteoporosis without current pathological fracture; Translations: [AGE-REL OSTEOPOR W/O CURR PATH FX] Onset: 09-05-2022 Chronic Other and ill-defined heart disease (3 sources) Cardiomegaly; Translations: [CARDIOMEGALY] Onset: 10-31-2022 Chronic Other connective tissue disease (2 sources) Presence of right artificial knee joint; Translations: [Presence of right artificial knee joint] Onset: 02-09-2024 Chronic Other connective tissue disease (2 sources) Presence of left artificial knee joint; Translations: [Presence of left artificial knee joint] Onset: 07-27-2023 Chronic Other nutritional; endocrine; and metabolic disorders (2 sources) Hypomagnesemia; Translations: [Hypomagnesemia] Onset: 01-24-2024 Chronic Pulmonary heart disease (3 sources) Pulmonary hypertension, unspecified; Translations: [PULMONARY HYPERTENSION UNSPECIFIED] Onset: 10-31-2022 Chronic Unclassified (1 source) Other abnormal findings on cytological and histological examination of urine; Translations: [OTH ABN FIND CYTLG HISTLG EXM URINE] Onset: 12-07-2022 Unclassified (2 sources) Chronic atrial fibrillation, unspecified; Translations: [Chronic atrial fibrillation, unspecified] Onset: 01-24-2024 Urinary tract infections (1 source) Urinary tract infection, site not specified; Translations: [UTI SITE NOT SPECIFIED] Onset: 12-07-2022 Episodic Past or Other Problems Problem Classification Problem Date Documented Date Episodic/Chronic Cardiac dysrhythmias (2 sources) Palpitations; Translations: [Palpitations] Onset: 08-07-2022 Episodic Deficiency and other anemia (1 source) Anemia, unspecified; Translations: [ANEMIA UNSPECIFIED] Onset: 10-31-2022 Episodic Diabetes mellitus without complication (1 source) Other abnormal glucose; Translations: [OTHER ABNORMAL GLUCOSE] Onset: 10-31-2022 Episodic Nonspecific chest pain (1 source) Chest pain, unspecified; Translations: [CHEST PAIN UNSPECIFIED] Onset: 11-04-2022 Episodic Other aftercare (2 sources) Encounter for other specified surgical aftercare; Translations: [Encounter for other specified surgical aftercare] Onset: 02-06-2024 Episodic Other lower respiratory disease (4 sources) Shortness of breath; Translations: [SHORTNESS OF BREATH] Onset: 11-01-2022 Episodic Other non-traumatic joint disorders (2 sources) Pain in right knee; Translations: [Pain in right knee] Onset: 11-28-2023 Episodic Other nutritional; endocrine; and metabolic disorders (2 sources) Hyperuricemia without signs of inflammatory arthritis and tophaceous disease; Translations: [Hyperuricemia without signs of inflammatory arthritis and tophaceous disease] Onset: 01-24-2024 Episodic Other screening for suspected conditions (not mental disorders or infectious disease) (4 sources) Encounter for screening mammogram for malignant neoplasm of breast; Translations: [ENC SCR MAMMO MALIG NEOPLASM BREAST] Onset: 05-25-2022 Episodic Residual codes; unclassified (1 source) Family history of malignant neoplasm of breast; Translations: [FAMILY HX MALIG NEOPLASM OF BREAST] Onset: 05-27-2022 Episodic Results Test Name Value Interpretation Reference Range Facility Office Visiton 05-15-2024 Follow-up visit [id number] Mignon Montanez 1945 Date Provider Department Center 05/15/2024 [id number]-YENI SANTIAGO MARTIN Page Family History Problem Relation Age of Onset Other Mother Other Mother Heart attack Father's Sister Family Status - Relation Status Age at Mother Father's Sister Level of Service:00409 ME OFFICE/OUTPATIENT ESTABLISHED LOW MDM 20 MIN Reason for Visit and Comments: Follow-up [773281] - Follow up Echo Concerns: No cardiac symptoms/concerns Normal [facility] 36on 04-01-2024 36 Regarding echo performed on 03/27/2024: JESSICA Gonzalez MA Echo about the same as previous- with noted mild to mod mitral regurg and mod Aortic valve regurg and normal LV function If she notes worsening SOB, palpitations, weight gain/water retention she needs to call office Spoke with patient and made here aware. She verbalized understanding. Normal [facility] Office Visiton 03-12-2024 Follow-up visit [id number] Mignon Montanez 1945 Date Provider Department Center 03/12/2024 [id number] PIERCE MP ORTHO MPORTHO Family History Problem Relation Age of Onset Other Mother Other Mother Heart attack Father's Sister Family Status - Relation Status Age at Mother Father's Sister Level of Service:33338 ME POSTOP FOLLOW UP VISIT RELATED TO ORIGINAL PX Reason for Visit and Comments: Pain [136] - R tka follow up [facility] Office Visiton 02-06-2024 Follow-up visit [id number] Mignon Montanez 1945 F Date Provider Department Center 02/06/2024 [id number] PIERCE MP ORTHO MPORTHO Family History Problem Relation Age of Onset Other Mother Other Mother Heart attack Father's Sister Family Status - Relation Status Age at Mother Father's Sister Level of Service:69348 ME POSTOP FOLLOW UP VISIT RELATED TO ORIGINAL PX (GC) Reason for Visit and Comments: Pain [136] - 1st post op R TKA Post-op [483] - 1st post op R TKA [facility] 36on 02-03-2024 36 I spoke to the patie nt to see how she is doing after her recent surgery. Ms Montanez stated she is doing well and her pain is manageable with medication. She is taking all the medication she was prescribed at discharge. She denies any redness, drainage or major swelling. She has been working with [facility] physical therapy. She has a post op appointment on February 05 at 8. She had no questions or concerns. [facility] 36 [facility] NOTIFIED NOT TO REMOVE THE DRESSING, HE V/U//[facility] 36on 01-31-2024 36 Uriel ISRAEL notified t thang nurse of dressing change instructions. I attempted to call the patient to complete a dishcarge follow up call and relay dressing orders but patient;s phone was busy. [facility] 36 Any, from [facility] called requesting clarification on patients wound vac instructions. They would like to know if they should remove the vac before her follow up visit. Discharge summary says :Dressing Removal: Do not remove before follow-up visit Follow up visit scheduled for 02/12. Please call with instructions on care. Number to return call [phone]. [facility] BASIC METABOLIC PANELon 05-0 Anion gap [Moles/Vol] 7 mmol/L Normal 7-20 [facility] Comment on above: Performed By: #### L [id number] #### [facility] (BE[facility]ER) [address] [place] [address] Calcium [Mass/Vol] 10.8 mg/dL High 8.6-10.3 [facility] Comment on above: Performed By: #### L [id number] #### [facility] (BEAKER) [address] [place] [address] Chloride [Moles/Vol] 105 mmol/L Normal 98-107 [facility] Comment on above: Performed By: #### L [id number] #### [facility] (BEAKER) [address] [place] [address] CO2 [Moles/Vol] 27 mmol/L Normal 21-31 [facility] Comment on above: Performed By: #### L [id number] #### [facility] ([facility]ER) [address] [place] [address] Creatinine [Mass/Vol] 1.45 mg/dL High 0.60-1.20 [facility] Comment on above: Performed By: #### L [id number] #### [facility] ([facility]) [address] [place] [address] GLOMERULAR FILTRATION RATE ML/MIN/1.73 SQ M.PREDICTED 37.2 mL/min/1.73m*2 Low >60.0 [facility] Comment on above: Result Comment: [facility]???s estimated glomerular filtration rate (eGFR) will [...] group of individuals. Performed By: #### L [id number] #### [facility] ([facility]) [address] [place] [address] Glucose [Mass/Vol] 88 mg/dL Normal 70-100 [facility] Comment on above: Performed By: #### L [id number] #### [facility] ([facility]) [address] [place] [address] Potassium [Moles/Vol] 4.4 mmol/L Normal 3.5-5.1 [facility] Comment on above: Performed By: #### L [id number] #### [facility] ([facility]) [address] [place] [address] Sodium [Moles/Vol] 135 mmol/L Low 136-145 [facility] Comment on above: Performed By: #### L [id number] #### [facility] ([facility]) [address] [place] [address] Urea nitrogen [Mass/Vol] 45 mg/dL High 7-25 [facility] Comment on above: Performed By: #### L [id number] #### [facility] ([facility]) [address] [place] [address] UREA NITROGEN/CREATININE (MASS RATIO) IN SER/PLAS 31.0 Normal [facility] Comment on above: Performed By: #### L [id number] #### [facility] ([facility]) [address] [place] [place] [address] CBC WITH AUTO DIFFERENTIALon 01-30-2024 Basophils (Bld) [#/Vol] 0.03 10*3/uL Normal 0.00-0.20 [facility] Comment on above: Performed By: #### L [id number] ####[facility] ([facility])[address] [facility] [address] Basophils/100 WBC (Bld) 0.3 % Normal 0.0-1.0 [facility] Comment on above: Performed By: #### L [id number] ####[facility] ([facility])[address] [place] [address] Eosinophils (Bld) [#/Vol] 0.19 10*3/uL Normal 0.00-0.50 [facility] Comment on above: Performed By: #### L [id number] ####[facility] (BEAKER)[address] [place] [address] Eosinophils/100 WBC (Bld) 2.1 % Normal 0.0-6.0 [facility] Comment on above: Performed By: #### L [id number] ####[facility] (BEAKER)[address] [place] [address] Erythrocyte distribution width (RBC) [Ratio] 13.0 % Normal 11.5-15.0 [facility] Comment on above: Performed By: #### L [id number] ####[facility] (BEAKER)[address] [place] [address] ERYTHROCYTE MEAN CORPUSCULAR HEMOGLOBIN CONCENTRATION (G/DL) BY AUTOMATED 31.5 g/dL Low 32.0-35.0 [facility] Comment on above: Performed By: #### L [id number] ####[facility] (BEAKER)[address] [place] [address] Hematocrit (Bld) [Volume fraction] 24.8 % Low 36.0-48.0 [facility] Comment on above: Performed By: #### L [id number] ####[facility] (BEAKER)[address] [place] [address] Hemoglobin (Bld) [Mass/Vol] 7.8 g/dL Low 12.0-15.0 [facility] Comment on above: Performed By: #### L [id number] ####[facility] (BE[facility]ER)[address] [place] [address] Immature granulocytes (Bld) [#/Vol] 0.09 10*3/uL Normal 0.00-0.20 [facility] Comment on above: Performed By: #### L [id number] ####[facility] ([facility]ER)[address] [place] [address] Immature granulocytes/100 WBC (Bld) 1.0 % Normal 0.0-1.0 [facility] Comment on above: Performed By: #### L [id number] ####[facility] [place] [address] Lymphocytes (Bld) [#/Vol] 0.68 10*3/uL Low 1.20-4.00 [facility] Comment on above: Performed By: #### L [id number] ####[facility] ([facility])[address] [place] [address] Lymphocytes/100 WBC (Bld) 7.5 % Low 20.0-45.0 [facility] Comment on above: Performed By: #### L [id number] ####[facility] ([facility])[address] [place] [address] MCH (RBC) [Entitic mass] 31.3 pg Normal 27.0-33.0 [facility] Comment on above: Performed By: #### L [id number] ####[facility] [place] [address] MCV (RBC) [Entitic vol] 99.6 fL High 82.0-98.0 [facility] Comment on above: Performed By: #### L [id number] ####[facility] [place] [address] Monocytes (Bld) [#/Vol] 1.15 10*3/uL High 0.10-1.00 [facility] Comment on above: Performed By: #### L [id number] ####[facility] ([facility]ER)[address] [place] [address] Monocytes/100 WBC (Bld) 12.6 % High 5.0-12.0 [facility] Comment on above: Performed By: #### L [id number] ####[facility] ([facility]ER)[address] [place] [address] Neutrophils (Bld) [#/Vol] 6.97 10*3/uL Normal 1.60-7.60 [facility] Comment on above: Performed By: #### L [id number] ####[facility] [place] [address] Neutrophils/100 WBC (Bld) 76.5 % High 40.0-72.0 [facility] Comment on above: Performed By: #### L [id number] ####[facility] ([facility])[address] [address] NRBC (PER 100 WBCS) BY AUTOMATED COUNT 0.0 % Normal 0 [facility] Comment on above: Performed By: #### L [id number] ####[facility] ([facility])[address] [address] PLATELETS (10*3/UL) IN BLOOD AUTOMATED COUNT 245 10*3/uL Normal 150-400 [facility] Comment on above: Performed By: #### L [id number] ####[facility] ([facility])[address] [address] RBC (Bld) [#/Vol] 2.49 10*6/uL Low 3.80-5.00 [facility] Comment on above: Performed By: #### L [id number] ####[facility] ([facility])[address] [address] WBC (Bld) [#/Vol] 9.11 10*3/uL Normal 4.00-10.60 [facility] Comment on above: Performed By: #### L [id number] ####[facility] [place] [address] DSon 01-30-2024 DS --- Attestation signed by Mynor Gallegos MD at 02/20/2024 8:07 AM I did not personally examine the patient. I discussed the case with the resident/fellow Hailee Ortez MD Teaching Physician's Revisions: none Orthopaedic Discharge Summary Patient ID: Lizabeth Montanez [id number] y.o. 1945 Admit date: 01/24/2024 Discharge date and time: 01/30/2024 3:32 PM Admitting Physician: Mynor Gallegos MD Discharge Physician: Mynor Gallegos MD Admission Diagnoses: Primary osteoarthritis of right knee [M17.11] Arthritis of right knee [M17.11] Discharge Diagnoses: Primary osteoarthritis of right knee [M17.11] Arthritis of right knee [M17.11] Surgical procedure: TOTAL KNEE ARTHROPLASTY 02476 - ME ARTHRP KNE CONDYLE&PLATU MEDIAL&LAT COMPARTMENTS Disposition: Home with home health care Medications: Your medication list START taking these medications Instructions Last Dose Given Next Dose Due allopurinol 100 mg tablet Commonly known as: Zyloprim Take 0.5 tablets (50 mg) by mouth in the morning for 98 doses. furosemide 40 mg tablet Commonly known as: Lasix Take 1 tablet (40 mg) by mouth every other day. Do not start before January 29, 2024. magnesium oxide 400 mg (241.3 mg magnesium) tablet Commonly known as: Mag-Ox Take 1 tablet (400 mg) by mouth in the morning. Do not start before January 29, 2024. CHANGE how you take these medications Instructions Last Dose Given Next Dose Due apixaban 2.5 mg tablet Commonly known as: Eliquis What changed: medication strength how much to take Take 1 tablet (2.5 mg) by mouth in the morning and at bedtime for 191 doses. bisoprolol 5 mg tablet Commonly known as: Zebeta What changed: medication strength how much to take Take 1 tablet (5 mg) by mouth in the morning. Do not start before January 29, 2024. CONTINUE taking these medications Instructions Last Dose Given Next Dose Due ascorbic acid 500 mg tablet Commonly known as: Vitamin C ferrous sulfate 325 (65 Fe) MG tablet multivitamin tablet Vitamin D3 25 MCG (1000 UT) capsule Generic drug: cholecalciferol STOP taking these medications acetaminophen 325 mg tablet Commonly known as: Tylenol celecoxib 200 mg capsule Commonly known as: CeleBREX dilTIAZem 30 mg immediate release tablet Commonly known as: Cardizem Entresto 24-26 mg tablet Generic drug: sacubitril-valsartan hydrALAZINE 100 mg tablet Commonly known as: Apresoline hydroCHLOROthiazide 50 mg tablet Commonly known as: HYDRODiuril Where to Get Your Medications These medications were sent to [facility] [place] [address] [place] [address] [place] [address], [facility] [address] allopurinol 100 mg tablet apixaban 2.5 mg tablet bisoprolol 5 mg tablet furosemide 40 mg tablet magnesium oxide 400 mg (241.3 mg magnesium) tablet Patient Instructions: Weightbearing: Right lower extremity Weightbearing as tolerated Left lower extremity Weightbearing as tolerated Dressing Care: Leave dressing intact, may shower with dressing if intact. If significantly soiled or bloody, remove and replace with clean and dry dressing. If there is any question, cover dressing by taping plastic wrap over incision while showering and then remove the plastic wrap when finished. If the incision gets wet inadvertantly, pat dry with a dry dressing and replace new, clean dressing. Follow-up visit: Follow-up with Ruslan Ortez MD in 10-14 days at [facility] [phone] Hospital Course: Lizabeth Montanez was admitted on 01/24/2024 and underwent the aforementioned procedure. Post-operatively, she had adequate pain control and physical therapy to be able to be discharged from the hospital. DVT prophylaxis consisted of Eliquis 2.5 mg BID for 30 days . Signed: Ruslan Ortez MD 7:38 AM 02/10/2024 Normal [facility] 30on 01-29-2024 30 The patient is Moderately Stable - Low risk of patient condition declining or worsening The patient's goals for the shift include comfort The clinical goals for the shift include VSS, comfort Problem: Pain - Adult Goal: Verbalizes/displays adequate comfort level or baseline comfort level 01/29/20242056 by Chrystal Thao RN Outcome: Progressing 01/29/20242056 by Chrystal Thao RN Outcome: Progressing Problem: Safety - Adult Goal: Free from fall injury 01/29/20242056 by Chrystal Thao RN Outcome: Progressing 01/29/20242056 by Chrystal Thao RN Outcome: Progressing Problem: Discharge Planning Goal: Discharge to home or other facility with appropriate resources 01/29/20242056 by Chrystal Thao RN Outcome: Progressing 01/29/20242056 by Chrystal Thao RN Outcome: Progressing Problem: Chronic Conditions and Co-morbidities Goal: Patient's chronic conditions and co-morbidity symptoms are monitored and maintained or improved 01/29/20242056 by Chrystal Thao RN Outcome: Progressing 01/29/20242056 by Chrystal Thao RN Outcome: Progressing Normal [facility] 30 Daily Case Managemen t Update Multidisciplinary rounds have been completed. Barriers to Discharge: Pending placement. Received late notification that patients insurance has denied IPR placement. IPR physician completed P2P on behalf of patient and the denial was upheld. Retirement Actuary and SW will be speaking with the patient shortly regarding SNF vs home discharge goal. Diet: Dietary Orders (From admission, onward) Start Ordered 01/29/24 0843 Special Kitchen Request Once Comments: Please send hungarian yogurt (peach), grits, honey and milk, american muffin. Decaf coffee with cream, diet coke. Thanks! 01/29/24 0844 01/24/24 1619 Regular Diet Diet effective now Question: Room Service? Answer: Yes 01/24/24 1618 Physician Expected Discharge Date: 01/25/2024 Discharge Delays: PT Six Click Score: 18 OT Six Click Score: 16 PT Recommendations: Inpatient rehab facility placement OT Recommendations: senior living facility placement Does patient understand post acute plan of care? Yes Is expected discharge disposition appropriate for patient?: Yes New Consults: Therapy Orders (From admission, onward) Start Ordered 01/24/24 0740 PT eval and treat (Knee Arthroplasty) Until therapy completed Question: Reason for PT? Answer: fall risk assessment only 01/24/24 0743 01/24/24 0740 OT eval and treat (Knee Arthroplasty) Until therapy completed Question: Reason for OT? Answer: postop musculoskeletal care 01/24/24 0743 Normal [facility] BASIC METABOLIC PANELon 05-0 Anion gap [Moles/Vol] 10 mmol/L Normal 7-20 [facility] Comment on above: Performed By: #### L [id number] #### [facility] ([facility]) [address] [facility] [place] [address] Calcium [Mass/Vol] 10.4 mg/dL High 8.6-10.3 [facility] Comment on above: Performed By: #### L [id number] #### [facility] ([facility]) [address] [place] [address] Chloride [Moles/Vol] 106 mmol/L Normal 98-107 [facility] Comment on above: Performed By: #### L [id number] #### [facility] ([facility]) [address] [place] [address] CO2 [Moles/Vol] 24 mmol/L Normal 21-31 [facility] Comment on above: Performed By: #### L [id number] #### [facility] ([facility] [facility]) [address] [place] [address] Creatinine [Mass/Vol] 1.52 mg/dL High 0.60-1.20 [facility] Comment on above: Performed By: #### L [id number] #### [facility] ([facility]) [address] [place] [address] GLOMERULAR FILTRATION RATE ML/MIN/1.73 SQ M.PREDICTED 35.1 mL/min/1.73m*2 Low >60.0 [facility] Comment on above: Result Comment: [facility]???s estimated glomerular filtration rate (eGFR) will [...] individuals. Performed By: #### L [id number] #### [facility] ([facility]) [address] [place] [address] Glucose [Mass/Vol] 82 mg/dL Normal 70-100 [facility] Comment on above: Performed By: #### L [id number] #### [facility] ([facility]) [address] [place] [address] Potassium [Moles/Vol] 4.4 mmol/L Normal 3.5-5.1 [facility] Comment on above: Performed By: #### L [id number] #### [facility] ([facility]) [address] [place] [address] Sodium [Moles/Vol] 136 mmol/L Normal 136-145 [facility] Comment on above: Performed By: #### L [id number] #### [facility] ([facility]) [address] [place] [address] Urea nitrogen [Mass/Vol] 46 mg/dL High 7-25 [facility] Comment on above: Performed By: #### L [id number] #### [facility] ([facility]) [address] [place] [address] UREA NITROGEN/CREATININE (MASS RATIO) IN SER/PLAS 30.3 Normal [facility] Comment on above: Performed By: #### L [id number] #### [facility] ([facility]) [address] [place] [address] CBC WITH AUTO DIFFERENTIALon 01-29-2024 Basophils (Bld) [#/Vol] 0.02 10*3/uL Normal 0.00-0.20 [facility] Comment on above: Performed By: #### L [id number] ####[facility] ([facility])[address] [facility] [address] Basophils/100 WBC (Bld) 0.2 % Normal 0.0-1.0 [facility] Comment on above: Performed By: #### L [id number] ####[facility] ([facility])[address] [place] [address] Eosinophils (Bld) [#/Vol] 0.10 10*3/uL Normal 0.00-0.50 [facility] Comment on above: Performed By: #### L [id number] ####[facility] ([facility] [place] [address] Eosinophils/100 WBC (Bld) 1.2 % Normal 0.0-6.0 [facility] Comment on above: Performed By: #### L [id number] ####[facility] ([facility])[address] [place] [address] Erythrocyte distribution width (RBC) [Ratio] 13.2 % Normal 11.5-15.0 [facility] Comment on above: Performed By: #### L [id number] ####[facility] ([facility])[address] [place] [address] ERYTHROCYTE MEAN CORPUSCULAR HEMOGLOBIN CONCENTRATION (G/DL) BY AUTOMATED 32.4 g/dL Normal 32.0-35.0 [facility] Comment on above: Performed By: #### L [id number] ####[facility] ([facility])[address] [place] [address] Hematocrit (Bld) [Volume fraction] 24.1 % Low 36.0-48.0 [facility] Comment on above: Performed By: #### L [id number] ####[facility] ([facility])[address] [place] [address] Hemoglobin (Bld) [Mass/Vol] 7.8 g/dL Low 12.0-15.0 [facility] Comment on above: Performed By: #### L [id number] ####[facility] ([facility] [place] [address] Immature granulocytes (Bld) [#/Vol] 0.07 10*3/uL Normal 0.00-0.20 [facility] Comment on above: Performed By: #### L [id number] ####[facility] ([facility])[address] [place] [address] Immature granulocytes/100 WBC (Bld) 0.8 % Normal 0.0-1.0 [facility] Comment on above: Performed By: #### L [id number] ####[facility] ([facility])[address] [place] [address] Lymphocytes (Bld) [#/Vol] 0.77 10*3/uL Low 1.20-4.00 [facility] Comment on above: Performed By: #### L [id number] ####[facility] ([facility])[address] [place] [address] Lymphocytes/100 WBC (Bld) 8.9 % Low 20.0-45.0 [facility] Comment on above: Performed By: #### L [id number] ####[facility] ([facility])[address] [place] [address] MCH (RBC) [Entitic mass] 32.0 pg Normal 27.0-33.0 [facility] Comment on above: Performed By: #### L [id number] ####[facility] ([facility])[address] [place] [address] MCV (RBC) [Entitic vol] 98.8 fL High 82.0-98.0 [facility] Comment on above: Performed By: #### L [id number] ####[facility] ([facility])[address] [place] [address] Monocytes (Bld) [#/Vol] 1.14 10*3/uL High 0.10-1.00 [facility] Comment on above: Performed By: #### L [id number] ####[facility] ([facility])[address] [place] [address] Monocytes/100 WBC (Bld) 13.2 % High 5.0-12.0 [facility] Comment on above: Performed By: #### L [id number] ####[facility] ([facility])[address] [place] [address] Neutrophils (Bld) [#/Vol] 6.53 10*3/uL Normal 1.60-7.60 [facility] Comment on above: Performed By: #### L [id number] ####[facility] ([facility] [place] [address] Neutrophils/100 WBC (Bld) 75.7 % High 40.0-72.0 [facility] Comment on above: Performed By: #### L [id number] ####[facility] ([facility])[address] [place] [address] NRBC (PER 100 WBCS) BY AUTOMATED COUNT 0.0 % Normal 0 [facility] Comment on above: Performed By: #### L [id number] ####[facility] ([facility])[address] [place] [address] PLATELETS (10*3/UL) IN BLOOD AUTOMATED COUNT 218 10*3/uL Normal 150-400 [facility] Comment on above: Performed By: #### L [id number] ####[facility] ([facility])[address] [place] [address] RBC (Bld) [#/Vol] 2.44 10*6/uL Low 3.80-5.00 [facility] Comment on above: Performed By: #### L [id number] ####[facility] ([facility])[address] [place] [address] WBC (Bld) [#/Vol] 8.63 10*3/uL Normal 4.00-10.60 [facility] Comment on above: Performed By: #### L [id number] ####[facility] ([facility])[address] [place] [address] MAGNESIUMon 01-29-2024 Magnesium [Mass/Vol] 1.7 mg/dL Low 1.9-2.7 [facility] Comment on above: Performed By: #### L [id number] #### [facility] ([facility]) [address] [place] [address] 30on 01-28-2024 30 The patient is Moderately Stable - Low risk of patient condition declining or worsening The patient's goals for the shift include comfort The clinical goals for the shift include VSS, comfort Problem: Pain - Adult Goal: Verbalizes/displays adequate comfort level or baseline comfort level Outcome: Progressing Problem: Safety - Adult Goal: Free from fall injury Outcome: Progressing Problem: Discharge Planning Goal: Discharge to home or other facility with appropriate resources Outcome: Progressing Problem: Chronic Conditions and Co-morbidities Goal: Patient's chronic conditions and co-morbidity symptoms are monitored and maintained or improved Outcome: Progressing Normal [facility] 30 Daily Case Managemen t Update Multidisciplinary rounds have been completed. Barriers to Discharge: Pending medical clearance for discharge. POD #4. Awaiting medical readiness for hospital discharge. [facility] has submitted for insurance authorization. Diet: Dietary Orders (From admission, onward) Start Ordered 01/24/24 1619 Regular Diet Diet effective now Question: Room Service? Answer: Yes 01/24/24 1618 Physician Expected Discharge Date: 01/25/2024 Discharge Delays: PT Six Click Score: 17 OT Six Click Score: 17 PT Recommendations: Inpatient rehab facility placement OT Recommendations: senior living facility placement Does patient understand post acute plan of care? Yes Is expected discharge disposition appropriate for patient?: Yes New Consults: Therapy Orders (From admission, onward) Start Ordered 01/24/24 0740 PT eval and treat (Knee Arthroplasty) Until therapy completed Question: Reason for PT? Answer: fall risk assessment only 01/24/24 0743 01/24/24 0740 OT eval and treat (Knee Arthroplasty) Until therapy completed Question: Reason for OT? Answer: postop musculoskeletal care 01/24/24 0743 Normal [facility] BASIC METABOLIC PANELon 04- Anion gap [Moles/Vol] 10 mmol/L Normal 7-20 [facility] Comment on above: Performed By: #### L [id number] #### [facility] ([facility]) [address] [place] [address] Calcium [Mass/Vol] 10.3 mg/dL Normal 8.6-10.3 [facility] Comment on above: Performed By: #### L [id number] #### [facility] ([facility]) [address] [place] [address] Chloride [Moles/Vol] 104 mmol/L Normal 98-107 [facility] Comment on above: Performed By: #### L [id number] #### [facility] ([facility]) [address] [place] [address] CO2 [Moles/Vol] 25 mmol/L Normal 21-31 [facility] Comment on above: Performed By: #### L [id number] #### [facility] ([facility]) [address] [place] [address] Creatinine [Mass/Vol] 1.52 mg/dL High 0.60-1.20 [facility] Comment on above: Performed By: #### L [id number] #### [facility] ([facility]) [address] [place] [address] GLOMERULAR FILTRATION RATE ML/MIN/1.73 SQ M.PREDICTED 35.1 mL/min/1.73m*2 Low >60.0 [facility] Comment on above: Result Comment: [facility]???s estimated glomerular filtration rate (eGFR) will [...] individuals. Performed By: #### L [id number] #### [facility] ([facility]) [address] [place] [address] Glucose [Mass/Vol] 90 mg/dL Normal 70-100 [facility] Comment on above: Performed By: #### L [id number] #### [facility] ([facility] [address] [place] [address] Potassium [Moles/Vol] 4.6 mmol/L Normal 3.5-5.1 [facility] Comment on above: Performed By: #### L [id number] #### [facility] ([facility] [address] [place] [address] Sodium [Moles/Vol] 134 mmol/L Low 136-145 [facility] Comment on above: Performed By: #### L [id number] #### [facility] ([facility]) [address] [place] [address] Urea nitrogen [Mass/Vol] 49 mg/dL High 7-25 [facility] Comment on above: Performed By: #### L [id number] #### [facility] ([facility]) [address] [place] [address] UREA NITROGEN/CREATININE (MASS RATIO) IN SER/PLAS 32.2 Normal [facility] Comment on above: Performed By: #### L [id number] #### [facility] ([facility]) [address] [place] [address] CBC WITH AUTO DIFFERENTIALon 01-28-2024 Basophils (Bld) [#/Vol] 0.02 10*3/uL Normal 0.00-0.20 [facility] Comment on above: Performed By: #### L [id number] ####[facility] ([facility])[address] [place] [address] Basophils/100 WBC (Bld) 0.2 % Normal 0.0-1.0 [facility] Comment on above: Performed By: #### L [id number] ####[facility] ([facility] [place] [address] Eosinophils (Bld) [#/Vol] 0.05 10*3/uL Normal 0.00-0.50 [facility] Comment on above: Performed By: #### L [id number] ####[facility] ([facility] [place] [address] Eosinophils/100 WBC (Bld) 0.5 % Normal 0.0-6.0 [facility] Comment on above: Performed By: #### L [id number] ####[facility] ([facility] [place] [address] Erythrocyte distribution width (RBC) [Ratio] 13.2 % Normal 11.5-15.0 [facility] Comment on above: Performed By: #### L [id number] ####[facility] ([facility] [place] [address] ERYTHROCYTE MEAN CORPUSCULAR HEMOGLOBIN CONCENTRATION (G/DL) BY AUTOMATED 33.2 g/dL Normal 32.0-35.0 [facility] Comment on above: Performed By: #### L [id number] ####[facility] ([facility])[address] [place] [address] Hematocrit (Bld) [Volume fraction] 25.3 % Low 36.0-48.0 [facility] Comment on above: Performed By: #### L [id number] ####[facility] ([facility] [place] [address] Hemoglobin (Bld) [Mass/Vol] 8.4 g/dL Low 12.0-15.0 [facility] Comment on above: Performed By: #### L [id number] ####[facility] ([facility])[address] [place] [address] Immature granulocytes (Bld) [#/Vol] 0.07 10*3/uL Normal 0.00-0.20 [facility] Comment on above: Performed By: #### L [id number] ####[facility] ([facility] [place] [address] Immature granulocytes/100 WBC (Bld) 0.7 % Normal 0.0-1.0 [facility] Comment on above: Performed By: #### L [id number] ####[facility] ([facility])[address] [place] [address] Lymphocytes (Bld) [#/Vol] 0.67 10*3/uL Low 1.20-4.00 [facility] Comment on above: Performed By: #### L [id number] ####[facility] ([facility])[address] [place] [address] Lymphocytes/100 WBC (Bld) 7.1 % Low 20.0-45.0 [facility] Comment on above: Performed By: #### L [id number] ####[facility] ([facility])[address] [place] [address] MCH (RBC) [Entitic mass] 31.5 pg Normal 27.0-33.0 [facility] Comment on above: Performed By: #### L [id number] ####[facility] ([facility] [place] [address] MCV (RBC) [Entitic vol] 94.8 fL Normal 82.0-98.0 [facility] Comment on above: Performed By: #### L [id number] ####[facility] ([facility])[address] [place] [address] Monocytes (Bld) [#/Vol] 1.18 10*3/uL High 0.10-1.00 [facility] Comment on above: Performed By: #### L [id number] ####[facility] ([facility])[address] [place] [address] Monocytes/100 WBC (Bld) 12.5 % High 5.0-12.0 [facility] Comment on above: Performed By: #### L [id number] ####[facility] ([facility])[address] [place] [address] Neutrophils (Bld) [#/Vol] 7.47 10*3/uL Normal 1.60-7.60 [facility] Comment on above: Performed By: #### L [id number] ####[facility] ([facility])[address] [place] [address] Neutrophils/100 WBC (Bld) 79.0 % High 40.0-72.0 [facility] Comment on above: Performed By: #### L [id number] ####[facility] ([facility])[address] [place] [address] NRBC (PER 100 WBCS) BY AUTOMATED COUNT 0.0 % Normal 0 [facility] Comment on above: Performed By: #### L [id number] ####[facility] ([facility])[address] [place] [address] PLATELETS (10*3/UL) IN BLOOD AUTOMATED COUNT 197 10*3/uL Normal 150-400 [facility] Comment on above: Performed By: #### L [id number] ####[facility] ([facility])[address] [place] [address] RBC (Bld) [#/Vol] 2.67 10*6/uL Low 3.80-5.00 [facility] Comment on above: Performed By: #### L [id number] ####[facility] ([facility])[address] [place] [address] WBC (Bld) [#/Vol] 9.46 10*3/uL Normal 4.00-10.60 [facility] Comment on above: Performed By: #### L [id number] ####[facility] ([facility])[address] [place] [address] 30on 01-27-2024 30 The patient is Moderately Stable - Low risk of patient condition declining or worsening The patient's goals for the shift include comfort The clinical goals for the shift include VSS and comfort Problem: Pain - Adult Goal: Verbalizes/displays adequate comfort level or baseline comfort level Outcome: Progressing Problem: Safety - Adult Goal: Free from fall injury Outcome: Progressing Problem: Chronic Conditions and Co-morbidities Goal: Patient's chronic conditions and co-morbidity symptoms are monitored and maintained or improved Outcome: Progressing Normal [facility] 30 Daily Case Managemen t Update Multidisciplinary rounds have been completed. Barriers to Discharge: Pending medical clearance for discharge. Medicine service was consulted for bradycardia. Medication adjustments have been made. Currently monitoring renal function, but will likely be medically ready for discharge soon. Patient is planning to go to [facility] when medically ready for discharge. [facility] has submitted for insurance pre-certification. Diet: Dietary Orders (From admission, onward) Start Ordered 01/24/241618 Regular Diet Diet effective now Question: Room Service? Answer: Yes 01/24/241617 Physician Expected Discharge Date: 01/25/2024 Discharge Delays: PT Six Click Score: 18 OT Six Click Score: 17 PT Recommendations: Inpatient rehab facility placement OT Recommendations: Inpatient rehab facility placement Does patient understand post acute plan of care? Yes Is expected discharge disposition appropriate for patient?: Yes New Consults: Therapy Orders (From admission, onward) Start Ordered 01/24/24 0740 PT eval and treat (Knee Arthroplasty) Until therapy completed Question: Reason for PT? Answer: fall risk assessment only 01/24/24 0743 01/24/24 0740 OT eval and treat (Knee Arthroplasty) Until therapy completed Question: Reason for OT? Answer: postop musculoskeletal care 01/24/24 0743 Normal [facility] BASIC METABOLIC PANELon 12-30 Anion gap [Moles/Vol] 10 mmol/L Normal 7-20 [facility] Comment on above: Performed By: #### L [id number] ####[facility] ([facility])[address] [place] [address] Calcium [Mass/Vol] 10.1 mg/dL Normal 8.6-10.3 [facility] Comment on above: Performed By: #### L [id number] ####[facility] ([facility])[address] [place] [address] Chloride [Moles/Vol] 106 mmol/L Normal 98-107 [facility] Comment on above: Performed By: #### L [id number] ####[facility] ([facility])[address] [place] [address] CO2 [Moles/Vol] 24 mmol/L Normal 21-31 [facility] Comment on above: Performed By: #### L [id number] ####[facility] ([facility])[address] [place] [address] Creatinine [Mass/Vol] 1.74 mg/dL High 0.60-1.20 [facility] Comment on above: Performed By: #### L [id number] ####[facility] ([facility])[address] [place] [address] GLOMERULAR FILTRATION RATE ML/MIN/1.73 SQ M.PREDICTED 29.9 mL/min/1.73m*2 Low >60.0 [facility] Comment on above: Result Comment: [facility]???s estimated glomerular filtration rate (eGFR) will [...] of individuals. Performed By: #### L [id number] ####[facility] ([facility])[address] [place] [address] Glucose [Mass/Vol] 87 mg/dL Normal 70-100 [facility] Comment on above: Performed By: #### L [id number] ####[facility] ([facility])[address] [place] [address] Potassium [Moles/Vol] 4.4 mmol/L Normal 3.5-5.1 [facility] Comment on above: Performed By: #### L [id number] ####[facility] ([facility])[address] [place] [address] Sodium [Moles/Vol] 136 mmol/L Normal 136-145 [facility] Comment on above: Performed By: #### L [id number] ####[facility] ([facility])[address] [place] [address] Urea nitrogen [Mass/Vol] 58 mg/dL High 7-25 [facility] Comment on above: Performed By: #### L [id number] ####[facility] ([facility])[address] [place] [address] UREA NITROGEN/CREATININE (MASS RATIO) IN SER/PLAS 33.3 Normal [facility] Comment on above: Performed By: #### L [id number] ####[facility] ([facility])[address] [place] [address] CBC WITH AUTO DIFFERENTIALon 01-27-2024 Basophils (Bld) [#/Vol] 0.01 10*3/uL Normal 0.00-0.20 [facility] Comment on above: Performed By: #### L [id number] #### [facility] ([facility] [address] [place] [address] Basophils/100 WBC (Bld) 0.1 % Normal 0.0-1.0 [facility] Comment on above: Performed By: #### L [id number] #### [facility] ([facility] [address] [place] [address] Eosinophils (Bld) [#/Vol] 0.07 10*3/uL Normal 0.00-0.50 [facility] Comment on above: Performed By: #### L [id number] #### [facility] ([facility]) [address] [place] [address] Eosinophils/100 WBC (Bld) 0.8 % Normal 0.0-6.0 [facility] Comment on above: Performed By: #### L [id number] #### [facility] [facility]) [address] [place] [address] Erythrocyte distribution width (RBC) [Ratio] 13.4 % Normal 11.5-15.0 [facility] Comment on above: Performed By: #### L [id number] #### [facility] ([facility]) [address] [place] [address] ERYTHROCYTE MEAN CORPUSCULAR HEMOGLOBIN CONCENTRATION (G/DL) BY AUTOMATED 32.4 g/dL Normal 32.0-35.0 [facility] Comment on above: Performed By: #### L [id number] #### [facility] ([facility]) [address] [place] [address] Hematocrit (Bld) [Volume fraction] 25.3 % Low 36.0-48.0 [facility] Comment on above: Performed By: #### L [id number] #### [facility] ([facility] [address] [address] Hemoglobin (Bld) [Mass/Vol] 8.2 g/dL Low 12.0-15.0 [facility] Comment on above: Performed By: #### L [id number] #### [facility] ([facility]) [address] [place] [address] Immature granulocytes (Bld) [#/Vol] 0.06 10*3/uL Normal 0.00-0.20 [facility] Comment on above: Performed By: #### L [id number] #### [facility] ([facility]) [address] [place] [address] Immature granulocytes/100 WBC (Bld) 0.7 % Normal 0.0-1.0 [facility] Comment on above: Performed By: #### L [id number] #### [facility] ([facility]) [address] [address] Lymphocytes (Bld) [#/Vol] 0.68 10*3/uL Low 1.20-4.00 [facility] Comment on above: Performed By: #### L [id number] #### [facility] ([facility]) [address] [place] [address] Lymphocytes/100 WBC (Bld) 7.5 % Low 20.0-45.0 [facility] Comment on above: Performed By: #### L [id number] #### [facility] ([facility]) [address] [place] [address] MCH (RBC) [Entitic mass] 31.4 pg Normal 27.0-33.0 [facility] Comment on above: Performed By: #### L [id number] #### [facility] ([facility]) [address] [place] [address] MCV (RBC) [Entitic vol] 96.9 fL Normal 82.0-98.0 [facility] Comment on above: Performed By: #### L [id number] #### [facility] ([facility]) [address] [place] [address] Monocytes (Bld) [#/Vol] 1.20 10*3/uL High 0.10-1.00 [facility] Comment on above: Performed By: #### L [id number] #### [facility] ([facility]) [address] [place] [address] Monocytes/100 WBC (Bld) 13.2 % High 5.0-12.0 [facility] Comment on above: Performed By: #### L [id number] #### [facility] ([facility]) [address] [place] [address] Neutrophils (Bld) [#/Vol] 7.06 10*3/uL Normal 1.60-7.60 [facility] Comment on above: Performed By: #### L [id number] #### [facility] ([facility]) [address] [place] [address] Neutrophils/100 WBC (Bld) 77.7 % High 40.0-72.0 [facility] Comment on above: Performed By: #### L [id number] #### [facility] ([facility]) [address] [place] [address] NRBC (PER 100 WBCS) BY AUTOMATED COUNT 0.0 % Normal 0 [facility] Comment on above: Performed By: #### L [id number] #### [facility] ([facility]) [address] [place] [address] PLATELETS (10*3/UL) IN BLOOD AUTOMATED COUNT 196 10*3/uL Normal 150-400 [facility] Comment on above: Performed By: #### L [id number] #### [facility] ([facility]) [address] [place] [address] RBC (Bld) [#/Vol] 2.61 10*6/uL Low 3.80-5.00 [facility] Comment on above: Performed By: #### L [id number] #### [facility] ([facility]) [address] [place] [address] WBC (Bld) [#/Vol] 9.08 10*3/uL Normal 4.00-10.60 [facility] Comment on above: Performed By: #### L [id number] #### [facility] ([facility]) [address] [place] [address] CKon 01-27-2024 CREATINE KINASE (U/L) IN SER/PLAS 34.0 U/L Normal 30.0-223.0 [facility] Comment on above: Performed By: #### L [id number] #### [facility] ([facility]) [address] [place] [address] MAGNESIUMon 01-27-2024 Magnesium [Mass/Vol] 2.0 mg/dL Normal 1.9-2.7 [facility] Comment on above: Performed By: #### L [id number] #### [facility] ([facility]) [address] [place] [address] PHOSPHORUSon 01-27-2024 Magnesium [Mass/Vol] 3.1 mg/dL Normal 2.5-5.0 [facility] Comment on above: Performed By: #### L [id number] #### [facility] ([facility]) [address] [place] [address] URIC ACIDon 01-27-2024 Magnesium [Mass/Vol] 7.6 mg/dL High 2.3-6.6 [facility] Comment on above: Performed By: #### L [id number] #### [facility] ([facility]) [address] [place] [address] VITAMIN D 25 HYDROXYon 01-26 CALCIDIOL (25 [place] VITAMIN D3) (NG/ML) IN SER/PLAS 34.6 ng/mL Normal 30.0-80.0 [facility] Comment on above: Result Comment: >80. 0 Toxicity possible Performed By: #### L [id number] #### [facility] ([facility]) [address] [place] [address] BASIC METABOLIC PANELon 12-30 Anion gap [Moles/Vol] 11 mmol/L Normal 7-20 [facility] Comment on above: Performed By: #### L [id number] #### [facility] ([facility]) [address] [place] [address] Calcium [Mass/Vol] 10.0 mg/dL Normal 8.6-10.3 [facility] Comment on above: Performed By: #### L [id number] #### [facility] ([facility]) [address] [place] [address] Chloride [Moles/Vol] 104 mmol/L Normal 98-107 [facility] Comment on above: Performed By: #### L [id number] #### [facility] ([facility]) [address] [place] [address] CO2 [Moles/Vol] 24 mmol/L Normal 21-31 [facility] Comment on above: Performed By: #### L [id number] #### [facility] ([facility]) [address] [address] Creatinine [Mass/Vol] 1.97 mg/dL High 0.60-1.20 [facility] Comment on above: Performed By: #### L [id number] #### [facility] ([facility]) [address] [place] [address] GLOMERULAR FILTRATION RATE ML/MIN/1.73 SQ M.PREDICTED 25.7 mL/min/1.73m*2 Low >60.0 [facility] Comment on above: Result Comment: [facility]???s estimated glomerular filtration rate (eGFR) will [...] group of individuals. Performed By: #### L [id number] #### [facility] ([facility]) [address] [place] [address] Glucose [Mass/Vol] 127 mg/dL High 70-100 [facility] Comment on above: Performed By: #### L [id number] #### [facility] ([facility]) [address] [place] [address] Potassium [Moles/Vol] 4.2 mmol/L Normal 3.5-5.1 [facility] Comment on above: Performed By: #### L [id number] #### [facility] ([facility]) [address] [place] [address] Sodium [Moles/Vol] 135 mmol/L Low 136-145 [facility] Comment on above: Performed By: #### L [id number] #### [facility] ([facility]) [address] [place] [address] Urea nitrogen [Mass/Vol] 60 mg/dL High 7-25 [facility] Comment on above: Performed By: #### L [id number] #### [facility] ([facility]) [address] [place] [address] UREA NITROGEN/CREATININE (MASS RATIO) IN SER/PLAS 30.5 Normal [facility] Comment on above: Performed By: #### L [id number] #### [facility] ([facility]) [address] [place] [address] CBC WITH AUTO DIFFERENTIALon 01-26-2024 Basophils (Bld) [#/Vol] 0.01 10*3/uL Normal 0.00-0.20 [facility] Comment on above: Performed By: #### L [id number] #### [facility] ([facility]) [address] [place] [address] Basophils/100 WBC (Bld) 0.1 % Normal 0.0-1.0 [facility] Comment on above: Performed By: #### L [id number] #### [facility] ([facility]) [address] [place] [address] Eosinophils (Bld) [#/Vol] 0.01 10*3/uL Normal 0.00-0.50 [facility] Comment on above: Performed By: #### L [id number] #### [facility] ([facility]) [address] [place] [address] Eosinophils/100 WBC (Bld) 0.1 % Normal 0.0-6.0 [facility] Comment on above: Performed By: #### L [id number] #### [facility] ([facility]) [address] [place] [address] Erythrocyte distribution width (RBC) [Ratio] 13.5 % Normal 11.5-15.0 [facility] Comment on above: Performed By: #### L [id number] #### [facility] ([facility]) [address] [place] [address] ERYTHROCYTE MEAN CORPUSCULAR HEMOGLOBIN CONCENTRATION (G/DL) BY AUTOMATED 32.1 g/dL Normal 32.0-35.0 [facility] Comment on above: Performed By: #### L [id number] #### [facility] ([facility]) [address] [place] [address] Hematocrit (Bld) [Volume fraction] 26.5 % Low 36.0-48.0 [facility] Comment on above: Performed By: #### L [id number] #### [facility] ([facility]) [address] [place] [address] Hemoglobin (Bld) [Mass/Vol] 8.5 g/dL Low 12.0-15.0 [facility] Comment on above: Performed By: #### L [id number] #### [facility] ([facility]) [address] [place] [address] Immature granulocytes (Bld) [#/Vol] 0.09 10*3/uL Normal 0.00-0.20 [facility] Comment on above: Performed By: #### L [id number] #### [facility] ([facility]) [address] [place] [address] Immature granulocytes/100 WBC (Bld) 0.8 % Normal 0.0-1.0 [facility] Comment on above: Performed By: #### L [id number] #### [facility] ([facility]) [address] [place] [address] Lymphocytes (Bld) [#/Vol] 0.47 10*3/uL Low 1.20-4.00 [facility] Comment on above: Performed By: #### L [id number] #### [facility] ([facility]) [address] [place] [address] Lymphocytes/100 WBC (Bld) 4.2 % Low 20.0-45.0 [facility] Comment on above: Performed By: #### L [id number] #### [facility] ([facility]) [address] [place] [address] MCH (RBC) [Entitic mass] 31.7 pg Normal 27.0-33.0 [facility] Comment on above: Performed By: #### L [id number] #### [facility] ([facility]) [address] [place] [address] MCV (RBC) [Entitic vol] 98.9 fL High 82.0-98.0 [facility] Comment on above: Performed By: #### L [id number] #### [facility] ([facility]) [address] [place] [address] Monocytes (Bld) [#/Vol] 1.01 10*3/uL High 0.10-1.00 [facility] Comment on above: Performed By: #### L [id number] #### [facility] ([facility]) [address] [place] [address] Monocytes/100 WBC (Bld) 8.9 % Normal 5.0-12.0 [facility] Comment on above: Performed By: #### L [id number] #### [facility] ([facility]) [address] [place] [address] Neutrophils (Bld) [#/Vol] 9.72 10*3/uL High 1.60-7.60 [facility] Comment on above: Performed By: #### L [id number] #### [facility] ([facility]) [address] [place] [address] Neutrophils/100 WBC (Bld) 85.9 % High 40.0-72.0 [facility] Comment on above: Performed By: #### L [id number] #### [facility] ([facility]) [address] [place] [address] NRBC (PER 100 WBCS) BY AUTOMATED COUNT 0.0 % Normal 0 [facility] Comment on above: Performed By: #### L [id number] #### [facility] ([facility]) [address] [place] [address] PLATELETS (10*3/UL) IN BLOOD AUTOMATED COUNT 199 10*3/uL Normal 150-400 [facility] Comment on above: Performed By: #### L [id number] #### [facility] ([facility]) [address] [place] [address] RBC (Bld) [#/Vol] 2.68 10*6/uL Low 3.80-5.00 [facility] Comment on above: Performed By: #### L [id number] #### [facility] ([facility]) [address] [place] [address] WBC (Bld) [#/Vol] 11.31 10*3/uL High 4.00-10.60 [facility] Comment on above: Performed By: #### L [id number] #### [facility] ([facility]) [address] [place] [address] CONSULTon 01-26-2024 CONSULT Physical Medicine an d Rehabilitation Consult Note Patient Identification Lizabeth Montanez is a 78 y.o. female. : 1945 Admit Date: 01/24/2024 Attending Provider: Mynor Gallegos MD Primary Care Physician: Isak Rayo MD Admitting Diagnosis: Primary osteoarthritis of right knee [M17.11] Arthritis of right knee [M17.11] Assessment/Plan Patient has deficits in activities of daily living, gait, mobility and strength secondary to the following diagnoses: Principal Problem: Arthritis of right knee Assessment: Right knee pain due to osteoarthritis s/p total knee arthroplasty Atrial fibrillation JAMEY Primary HTN, non-smoker Plan of Care: This patient does demonstrate functional deficits from her baseline due to recent total knee arthroplasty. In my opinion she can tolerate 3 hours of therapy per day in the inpatient rehabilitation setting. She may benefit from discharge inpatient rehabilitation due to her limited support at home. Considering her independent level of function at baseline, her prognosis is good. Patient has comorbidities that would benefit from daily physician monitoring in the inpatient rehabilitation setting. These comorbidities include atrial fibrillation, acute kidney injury, and recent bradycardia. These may require regular monitoring of vital signs and medication adjustments. Subjective Reason for Consultation: Possible inpatient rehabilitation admission Chief Complaint: right knee pain History of present illness: Patient is a 78-year-old female currently hospitalized for elective right total knee arthroplasty on 01/23. Patient had right knee pain and osteoarthritis and failed conservative treatments. She has notable history of left total knee arthroplasty that was successful. Also notable is a history of mitral regurgitation and paroxysmal atrial fibrillation. Postoperative course was complicated by bradycardia for which internal medicine was consulted.. Heart rates were measured in the 40s to 50s within normal blood pressure. Internal medicine felt that bradycardia was due to beta-blockers, calcium channel blockers, and IV opioids. He also felt that these were causing hypotension. Patient's course was further complicated by JAMEY on CKD 3B likely due to hypoperfusion. She was also anemic. Patient's Cardizem was discontinued and her bisoprolol dose was lowered. Antihypertensives were held due to JAMEY and hypotension. Eliquis dose was adjusted for reduced creatinine clearance. Creatinine on 01/24 = 1.94, baseline is approximately 1.6. Hemoglobin = 8.3 on 01/24 and she has a mild leukocytosis with WBC = 13. Recent Physical and Occupational Therapy Assessments: Per therapy notes, patient ambulated 12 feet x 2 followed by 50 feet x 2 with rolling walker and contact-guard assist. She required verbal cueing. She was contact-guard assist for bed mobility. She was contact-guard assist for sit to stand transfers and stand to sit transfers. Patient was moderate assistance for bathing, minimum assist for upper body dressing, and maximum assistance for lower body dressing. Previous Level of Function: At baseline, patient ambulates household distances utilizing a quad cane, which she also uses for community distances. She is independent for ADLs and transfers. She drives. 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 Home Set-up and Support System: Patient lives in a two-story home with 2 steps to enter. Bedroom bathroom on the first floor. Current Facility-Administered Medications: acetaminophen (Tylenol) tablet 650 mg, 650 mg, oral, q6h PRN, Ruslan Ortez MD apixaban (Eliquis) tablet 2.5 mg, 2.5 mg, oral, BID, Masharib Bashar, 2.5 mg at 01/25/242142 ascorbic acid (Vitamin C) tablet 500 mg, 500 mg, oral, Daily, Ruslan Ortez MD, 500 mg at 01/25/24 0942 bisoprolol (Zebeta) tablet 5 mg, 5 mg, oral, Daily, Xiomaraib Bashar cholecalciferol (Vitamin D-3) tablet 1,000 Units, 1,000 Units, oral, Daily, Ruslan Ortez MD, 1,000 Units at 01/25/24 0942 docusate sodium (Colace) capsule 100 mg, 100 mg, oral, BID, Ruslan Ortez MD, 100 mg at 01/25/242142 ferrous sulfate tablet 325 mg, 325 mg, oral, Daily with breakfast, Ruslan Ortez MD, 325 mg at 01/25/24 0813 HYDROcodone-acetaminoph en ([place]) 5-325 mg per tablet 1 tablet, 1 tablet, oral, q6h PRN, Ruslan Ortez MD, 1 tablet at 01/25/24 1128 ibuprofen tablet 600 mg, 600 mg, oral, q8h PRN, Ruslan Ortez MD methocarbamol (Robaxin) tablet 500 mg, 500 mg, oral, 4x daily PRN, Ruslan Ortez MD, 500 mg at 01/25/24 1128 ondansetron ODT (Zofran-ODT) disintegrating tablet 4 mg, 4 mg, oral, q8h PRN OR ondansetron HCl (PF) (Zofran) injection 4 mg, 4 mg, intravenous, q6h PRN, Ruslan Ortez MD Oxygen Therapy, , inhalation, Continuous PRN, Mynor Gallegos MD, Given at 01/24/24 1055 Allergies Allergen Reactions Penicillins Past Surgical History: Procedure Laterality Date CARDIOVE (more content not included)... [facility] CORTISOLon 04-28-2024 CORTISOL (UG/DL) IN SER/PLAS 18.9 ug/dL Normal 6- [facility] Comment on above: Performed By: #### L [id number] #### [facility] ([facility]) [address] [place] [address] CORTISOL (UG/DL) IN SER/PLAS 15.1 ug/dL Normal - [facility] Comment on above: Order Comment: 30-mi n cortisol check after ACTH administration Performed By: #### L [id number] #### [facility] ([facility]) [address] [place] [address] MAGNESIUMon 01-26-2024 Magnesium [Mass/Vol] 1.4 mg/dL Low 1.9-2.7 [facility] Comment on above: Performed By: #### L [id number] #### [facility] ([facility]) [address] [place] [address] URINALYSIS WITH MICROSCOPICo n 01-26-2024 BILIRUBIN, TOTAL PRESENCE IN URINE Negative Normal Negative [facility] Comment on above: Performed By: #### L [id number] ####[facility] ([facility])[address] [place] [address] Clarity (U) Clear Normal Clear [facility] Comment on above: Performed By: #### L [id number] ####[facility] ([facility])[address] [place] [address] Color (U) Straw Abnormal Yellow [facility] Comment on above: Performed By: #### L [id number] ####[facility] ([facility])[address] [place] [address] Glucose (U) [Mass/Vol] Negative Normal Negative [facility] Comment on above: Performed By: #### L [id number] ####[facility] ([facility])[address] [place] [address] HEMOGLOBIN PRESENCE IN URINE Small Abnormal Negative [facility] Comment on above: Performed By: #### L [id number] ####[facility] ([facility])[address] [place] [address] Ketones Ql (U) Negative Normal Negative [facility] Comment on above: Performed By: #### L [id number] ####[facility] ([facility] [place] [address] LEUKOCYTE ESTERASE PRESENCE IN URINE BY TEST STRIP Trace Abnormal Negative [facility] Comment on above: Performed By: #### L [id number] ####[facility] ([facility])[address] [place] [address] MUCUS (#/HPF) IN URINE SEDIMENT Occasional Normal None Seen, Occasional, Few [facility] Comment on above: Performed By: #### L [id number] ####[facility] ([facility])[address] [place] [address] NITRITE PRESENCE IN URINE Negative Normal Negative [facility] Comment on above: Performed By: #### L [id number] ####[facility] ([facility])[address] [place] [address] pH (U) 5.0 [pH] Normal 5.0-8.0 [facility] Comment on above: Performed By: #### L [id number] ####[facility] ([facility])[address] [place] [address] Protein (U) [Mass/Vol] Negative Normal Negative [facility] Comment on above: Performed By: #### L [id number] ####[facility] ([facility])[address] [place] [address] RBC (#/HPF) IN URINE SEDIMENT 6-10 Abnormal None Seen [facility] Comment on above: Performed By: #### L [id number] ####[facility] ([facility])[address] [place] [address] Specific gravity (U) [Rel density] 1.013 Low 1.015-1.020 [facility] Comment on above: Performed By: #### L [id number] ####[facility] ([facility])[address] [place] [address] SQUAMOUS EPITHELIAL CELLS (#/HPF) IN URINE SEDIMENT Moderate Abnormal None Seen, Occasional [facility] Comment on above: Performed By: #### L [id number] ####[facility] ([facility] [place] [address] WBC (LEUKOCYTE) (#/HPF) IN URINE SEDIMENT 3-5 Abnormal None Seen [facility] Comment on above: Performed By: #### L [id number] ####[facility] ([facility] [place] [address] 30on 01-25-2024 30 The patient is Moderately Stable - Low risk of patient condition declining or worsening The patient's goals for the shift include rest, pain management The clinical goals for the shift include VSS, pain management Over the shift, the patient did not make progress toward the following goals. Barriers to progression include post op pain. Recommendations to address these barriers include meds as prescribed, cold therapy. Normal [facility] 30 The patient is Moderately Stable - Low risk of patient condition declining or worsening The patient's goals for the shift include comfort The clinical goals for the shift include pain management Over the shift, the patient did not make progress toward the following goals. Barriers to progression include post op pain. Recommendations to address these barriers include meds as prescribed. Normal [facility] ALBUMINon 01-25-2024 Albumin [Mass/Vol] 3.4 g/dL Low 3.5-5.7 [facility] Comment on above: Performed By: #### L [id number] #### [facility] ([facility]) [address] [place] [address] BASIC METABOLIC PANELon 12-30 Anion gap [Moles/Vol] 10 mmol/L Normal 7-20 [facility] Comment on above: Performed By: #### L [id number] #### [facility] ([facility]) [address] [place] [address] Calcium [Mass/Vol] 10.3 mg/dL Normal 8.6-10.3 [facility] Comment on above: Performed By: #### L [id number] #### [facility] ([facility]) [address] [place] [address] Chloride [Moles/Vol] 106 mmol/L Normal 98-107 [facility] Comment on above: Performed By: #### L [id number] #### [facility] ([facility]) [address] [place] [address] CO2 [Moles/Vol] 24 mmol/L Normal 21-31 [facility] Comment on above: Performed By: #### L [id number] #### [facility] ([facility]) [address] [place] [address] Creatinine [Mass/Vol] 1.94 mg/dL High 0.60-1.20 [facility] Comment on above: Performed By: #### L [id number] #### [facility] ([facility]) [address] [place] [address] GLOMERULAR FILTRATION RATE ML/MIN/1.73 SQ M.PREDICTED 26.2 mL/min/1.73m*2 Low >60.0 [facility] Comment on above: Result Comment: The [facility]???s estimated glomerular filtration rate (eGFR) will [...] individuals. Performed By: #### L [id number] #### [facility] ([facility]) [address] [place] [address] Glucose [Mass/Vol] 137 mg/dL High 70-100 [facility] Comment on above: Performed By: #### L [id number] #### [facility] ([facility]) [address] [facility] [place] [address] Potassium [Moles/Vol] 5.0 mmol/L Normal 3.5-5.1 [facility] Comment on above: Performed By: #### L [id number] #### [facility] ([facility]) [address] [place] [address] Sodium [Moles/Vol] 135 mmol/L Low 136-145 [facility] Comment on above: Performed By: #### L [id number] #### [facility] ([facility]) [address] [place] [address] Urea nitrogen [Mass/Vol] 51 mg/dL High 7-25 [facility] Comment on above: Performed By: #### L [id number] #### [facility] ([facility]) [address] [place] [address] UREA NITROGEN/CREATININE (MASS RATIO) IN SER/PLAS 26.3 Normal [facility] Comment on above: Performed By: #### L [id number] #### [facility] ([facility]) [address] [place] [address] CBCon 01-25-2024 Erythrocyte distribution width (RBC) [Ratio] 13.2 % Normal 11.5-15.0 [facility] Comment on above: Performed By: #### L [id number] #### [facility] ([facility]) [address] [address] ERYTHROCYTE MEAN CORPUSCULAR HEMOGLOBIN CONCENTRATION (G/DL) BY AUTOMATED 31.7 g/dL Low 32.0-35.0 [facility] Comment on above: Performed By: #### L [id number] #### [facility] ([facility]) [address] [address] Hematocrit (Bld) [Volume fraction] 26.2 % Low 36.0-48.0 [facility] Comment on above: Performed By: #### L [id number] #### [facility] ([facility]) [address] [address] Hemoglobin (Bld) [Mass/Vol] 8.3 g/dL Low 12.0-15.0 [facility] Comment on above: Performed By: #### L [id number] #### [facility] ([facility]) [address] [place] [address] MCH (RBC) [Entitic mass] 31.4 pg Normal 27.0-33.0 [facility] Comment on above: Performed By: #### L [id number] #### [facility] ([facility]) [address] [place] [address] MCV (RBC) [Entitic vol] 99.2 fL High 82.0-98.0 [facility] Comment on above: Performed By: #### L [id number] #### [facility] ([facility]) [address] [place] [address] PLATELETS (10*3/UL) IN BLOOD AUTOMATED COUNT 188 10*3/uL Normal 150-400 [facility] Comment on above: Performed By: #### L [id number] #### [facility] ([facility]) [address] [place] [address] RBC (Bld) [#/Vol] 2.64 10*6/uL Low 3.80-5.00 [facility] Comment on above: Performed By: #### L [id number] #### [facility] ([facility]) [address] [place] [address] WBC (Bld) [#/Vol] 13.05 10*3/uL High 4.00-10.60 [facility] Comment on above: Performed By: #### L [id number] #### [facility] ([facility]) [address] [place] [address] CONSULTon 01-25-2024 CONSULT --- Attestation signed by Isak Raymond MD at 01/27/2024 9:01 AM By using the attestations below, the signing [...] be an additional personal documentation from me. Reviewed and approved by ISAK RAYMOND on 01/27/24 at 9:01 AM. [facility] Inpatient Consult Note Patient - Lizabeth Montanez Age - 78 y.o. - 1945 Date of Admission - 01/24/2024 5:39 AM Reason for the consult Bradycardia, medical management History of Present Illness Lizabeth Montanez is a 78 y.o. female patient with PMH of HTN, HFpEF, mild to moderate MR, CKD 3B, paroxysmal A-fib, bilateral knee OA who presented to the hospital for elective right TKR. Postoperatively, patient having good surgical progress. No concerns for overt bleeding. Pain is currently tolerable. Patient working with PT/OT. GABBIE has been consulted for worsening bradycardia and postoperative medical management. Patient has history of HFpEF, mild to moderate MR and paroxysmal A-fib. At home she is on bisoprolol 10 mg daily and Cardizem IR 30 mg twice daily. She is also on Entresto 24-26 twice daily and hydrochlorothiazide 50 mg daily for HFpEF and underlying MR. She did underwent cardiac cath last year which was unremarkable and showed patent coronary arteries. DENISE showed mild AI and mild to moderate MR with EF 55 to 60%. She follows with Dr. Miller and has upcoming appointment in the next few months. She is due for annual echocardiogram. Yesterday, patient's heart rate was measured at 40 8 in the evening. Overnight it was consistently in 50s. Blood pressure was normal with SBP above 100 at all times, however this morning BP 97/60. Patient denies any orthostatic symptoms such as dizziness, lightheadedness. patient also denies any shortness of breath or chest pain. At baseline, at home patient states that her heart rate is usually in the 60s with systolic blood pressure usually between 100-110. She does endorse worsening tiredness. She denies any snoring and did underwent sleep apnea evaluation outpatient which ruled out ANNI. But she did have concerning symptoms related to periodic limb movement disorder. She is currently on iron supplementation. Does endorse baseline lower extremity swelling, which has not gotten worse. Denies any other symptoms at this point of time PMH: Patient has a past medical history of Atrial fibrillation (CMS/HCC), COVID-19, Hypertension, Left ventricular hypertrophy, Nonrheumatic mitral valve regurgitation, OA (osteoarthritis), Obesity, Osteoarthritis of knee, Palpitations, PONV (postoperative nausea and vomiting), Pulmonary hypertension (CMS/HCC), and Right knee pain. PSH: Patient has a past surgical history that includes Cardioversion; section, low transverse; Tonsillectomy; and Knee Arthroplasty (Left). SH: Patient reports that she has never smoked. She has never used smokeless tobacco. She reports that she does not currently use alcohol. She reports that she does not use drugs. Alc/Tobacco/Drug: Patient reports that she does not currently use alcohol. reports that she has never smoked. She has never used smokeless tobacco. reports no history of drug use. Medications: Patient Current Facility-Administered Medications: acetaminophen (Tylenol) tablet 650 mg, 650 mg, oral, q6h PRN, Ruslan Ortez MD apixaban (Eliquis) tablet 5 mg, 5 mg, oral, BID, Ruslan Ortez MD, 5 mg at 01/25/24 09 ascorbic acid (Vitamin C) tablet 500 mg, 500 mg, oral, Daily, Ruslan Ortez MD, 500 mg at 01/25/24 09 [Held by provider] bisoprolol (Zebeta) tablet 10 mg, 10 mg, oral, Daily, Shilpi Hall cholecalciferol (Vitamin D-3) tablet 1,000 Units, 1,000 Units, oral, Daily, Ruslan Ortez MD, 1,000 Units at 01/25/24 09 docusate sodium (Colace) capsule 100 mg, 100 mg, oral, BID, Ruslan Ortez MD, 100 mg at 01/25/24 09 ferrous sulfate tablet 325 mg, 325 mg, oral, Daily with breakfast, Ruslan Ortez MD, 325 mg at 01/25/24 0813 HYDROcodone-acetaminoph en ([place]) 5-325 mg per tablet 1 tablet, 1 tablet, oral, q6h PRN, Ruslan Ortez MD, 1 tablet at 01/24/24 1629 ibuprofen tablet 600 mg, 600 mg, oral, q8h PRN, Ruslan Ortez MD methocarbamol (Robaxin) tablet 500 mg, 500 mg, oral, 4x daily PRN, Ruslan Ortez MD naloxone (Narcan) injection 0.2 mg, 0.2 mg, intravenous, PRN OR naloxone (Narcan) injection 0.2 mg, 0.2 mg, intramuscular, PRN OR naloxone (Narcan) i (more content not included)... Normal [facility] CORTISOLon 01-25-2024 CORTISOL (UG/DL) IN SER/PLAS 2.2 ug/dL Low 6-23 [facility] Comment on above: Performed By: #### L [id number] ####[facility] ([facility])[address] [place] [address] CREATININE, URINE, RANDOMon 01-25-2024 Creatinine (U) [Mass/Vol] 108.0 mg/dL Normal 26-299 [facility] Comment on above: Performed By: #### L [id number] ####[facility] ([facility])[address] [place] [address] FERRITINon 01-25-2024 FERRITIN (NG/ML) IN SER/PLAS 285.0 ng/mL Normal 11.0-307.0 [facility] Comment on above: Performed By: #### L [id number] #### [facility] ([facility]) [address] [place] [address] FOLATEon 01-25-2024 FOLATE (NG/ML) IN SER/PLAS 16.22 ng/mL Normal 6.6-1000 [facility] Comment on above: Performed By: #### L [id number] ####[facility] ([facility])[address] [place] [address] IRON AND TIBCon 01-25-2024 IRON (UG/DL) IN SER/PLAS 46 ug/dL Low 50-212 [facility] Comment on above: Performed By: #### L [id number] ####[facility] ([facility])[address] [place] [address] IRON BINDING CAPACITY (UG/DL) IN SER/PLAS 235 ug/dL Low 250-450 [facility] Comment on above: Performed By: #### L [id number] ####[facility] ([facility])[address] [place] [address] IRON BINDING CAPACITY.UNSATURATE D (UG/DL) IN SER/PLAS 189.0 ug/dL Normal 155.0-355.0 [facility] Comment on above: Performed By: #### L [id number] ####[facility] ([facility])[address] [place] [address] IRON SATURATION (%) IN SER/PLAS 20 % Normal 20-50 [facility] Comment on above: Performed By: #### L [id number] ####[facility] ([facility])[address] [place] [address] SODIUM, URINE, RANDOMon 12-30 Sodium (U) [Moles/Vol] 32 mmol/L Normal [facility] Comment on above: Performed By: #### L [id number] #### [facility] ([facility]) [address] [place] [address] TSH3 REFLEX TO FT4on 024 THYROTROPIN (MIU/L) IN SER/PLAS BY DETECTION LIMIT <= 0.05 MIU/L 0.97 mIU/L Normal 0.34-5.60 [facility] Comment on above: Performed By: #### L [id number] ####[facility] ([facility])[address] [place] [facility] [address] VITAMIN B12on 01-25-2024 Cobalamin (Vitamin B12) [Mass/Vol] 310 pg/mL Normal 180-914 [facility] Comment on above: Result Comment: REFE RENCE RANGES: 180-914 pg/mL Normal 145-179 pg/mL Indeterminate <145 pg/mL Deficient Performed By: #### L [id number] ####[facility] ([facility])[address] [place] [address] 30on 01-24-2024 30 The patient is Moderately Stable - Low risk of patient condition declining or worsening The patient's goals for the shift include rest and comfort The clinical goals for the shift include pain management Problem: Pain - Adult Goal: Verbalizes/displays adequate comfort level or baseline comfort level Outcome: Progressing Problem: Safety - Adult Goal: Free from fall injury Outcome: Progressing Problem: Discharge Planning Goal: Discharge to home or other facility with appropriate resources Outcome: Progressing Problem: Chronic Conditions and Co-morbidities Goal: Patient's chronic conditions and co-morbidity symptoms are monitored and maintained or improved Outcome: Progressing Normal [facility] HPon 01-24-2024 H&P reviewed. The patient was examined and there are no changes to the H&P. I personally examined the patient and Marked his operative extremity, all questions answered and consents signed. Discussed operative and post op plan. Normal [facility] MRSA/MSSA DNA NASALon 2023 MRSA DNA Negative Normal Negative [facility] Comment on above: Order Comment: Testi [...] preclude nasal colonization. Performed By: #### L [id number] #### [facility] ([facility]) [address] [place] [address] MSSA DNA Negative Normal Negative [facility] Comment on above: Order Comment: Testi [...] preclude nasal colonization. Performed By: #### L [id number] #### [facility] ([facility]) [address] [place] [address] OPNOTEon 01-24-2024 OPNOTE TOTAL KNEE ARTHROPLA STY (R) Operative Note Date: 01/24/2024 Location: [facility] Name: Lizabeth Montanez, : 1945, Diagnosis Pre-op Diagnosis * Primary osteoarthritis of right knee [M17.11] Post-op Diagnosis * Primary osteoarthritis of right knee [M17.11] Procedures TOTAL KNEE ARTHROPLASTY 30553 - ME ARTHRP KNE CONDYLE&PLATU MEDIAL&LAT COMPARTMENTS ME INJECTION AA&/STRD FEMORAL NERVE W/IMG GDN [[id number]] Surgeons * Mynor Gallegos - Primary Ruslan Lew MD Procedure Summary Anesthesia: General ASA: III Estimated Blood Loss: 250 mL Drains: [REMOVED] Urethral Catheter Non-latex 16 Fr. (Removed) Implants Type Name Action Serial No. Bone Cement CEMENT,BONE,[id number] - [id number] Implanted PERSONA CR FEMUR Implanted PERSONA NATURAL TIBIA Implanted PERSONA PATELLA Implanted PERSONA ARTICULAR SURFACE Implanted Implants : Persona Size 5 CR femur component and size E natural tibial component, Size 35 mm round patellar resurfacing , Size 10 mm Medial congruent poly liner ( MC) Staff: Membership Director: Leilani Guerrero RN Scrub Person: Carlie Francisco CST Logistics Manager: Rogelio Feliz CSA Indications: Lizabeth Montanez is an 78 y.o. female who is having surgery for Primary osteoarthritis of right knee [M17.11]. Patient with long standing Right knee pain. Patient failed conservative treatment in the form of multiple joint injections. Recommendation were given for Right total knee arthroplasty. All the risks and benefits of the surgery were discussed in details with the patient. Discussed risk of anesthesia, infection, bleeding, injury to nerves and vessels, stiffness, persistence of pain, injury to surrounding structures, blood clots in the legs or lungs, medical complications and the need for revision surgery. An informed consent was obtained. All the [...] was applied outside of the surgical field. Her Right lower extremity was prepped and draped in the standard sterile fashion. A complete surgical timeout was performed in the room in my presence I identified the patient the site of the surgery as well as the procedure to be done. Preoperative antibiotics were given per protocol. We Started by marking an anterior midline incision over the Right knee extending from the tibial tubercle to [...] At this point the patella was everted with a large superior osteophyte and significant arthritis and the lateral patellofemoral ligament was released. The knee was very gently flexed and the leg externally rotated to decrease tension over the patellar ligament. At this point the knee was exposed with significant arthritis of the tibial and femoral surfaces especially in the medial compartments with complete cartilage loss and eburnation of articular surface as well as extensive osteophyte formation. The remnants of the medial and lateral menisci were removed. The remnants of the ACL attachments are released to decrease tension. At this point the femoral medullary canal was opened and the contents suctioned. The intramedullary femoral guide was inserted and the distal femoral cutting block was pinned in place. The amount of bone to be removed was examined and found to be appropriate. The distal femoral cut was performed. At this point the tibia was exposed the remnants of the menisci were removed. The extramedullary tibial cutting guide was inserted and adjusted in the correct rotation. The tibial cutting guide was pinned in place and the proximal tibial cut was performed. At this point the knee was extended and a 10 mm block was used with full knee extension and good alignment as well as well balanced extension gap. At this point the femur was measured and the rotation of the femoral component was adjusted. The 4-in-1 cutting block was inserted into the distal femur predetermined rotational holes and the block was pinned in place. The distal femoral cut was performed. At this point the os (more content not included)... Normal [facility] POCT GLUCOSE METER UNSOLICIT ED RESULTSon 01-24-2024 Glucose [Mass/Vol] 97 mg/dL Normal 70-105 [facility] Comment on above: Order Comment: Waive d Testing in the ED is performed under the ED CLIA certificate #[id number]. Result Comment: czyd orc Performed By: #### L [id number] #### [facility] ([facility]) [address] [place] [address] APTTon 01-16-2024 ACTIVATED PARTIAL THROMBOPLASTIN TIME IN PPP BY COAGULATION ASSAY 33.4 Seconds Normal 25.0-35.0 [facility] Comment on above: Result Comment: Clin ical significance of the APTT is questionable in the presence of heparin. Performed By: #### L [id number] #### [facility] ([facility]) [address] [place] [address] BASIC METABOLIC PANELon 12-29 Anion gap [Moles/Vol] 12 mmol/L Normal 7-20 [facility] Comment on above: Performed By: #### L [id number] #### [facility] ([facility]) [address] [place] [address] Calcium [Mass/Vol] 11.5 mg/dL High 8.6-10.3 [facility] Comment on above: Performed By: #### L [id number] #### [facility] ([facility]) [address] [place] [address] Chloride [Moles/Vol] 108 mmol/L High 98-107 [facility] Comment on above: Performed By: #### L [id number] #### [facility] ([facility]) [address] [place] [address] CO2 [Moles/Vol] 24 mmol/L Normal 21-31 [facility] Comment on above: Performed By: #### L [id number] #### [facility] ([facility]) [address] [place] [address] Creatinine [Mass/Vol] 1.75 mg/dL High 0.60-1.20 [facility] Comment on above: Performed By: #### L [id number] #### [facility] ([facility]) [address] [place] [address] GLOMERULAR FILTRATION RATE ML/MIN/1.73 SQ M.PREDICTED 29.6 mL/min/1.73m*2 Low >60.0 [facility] Comment on above: Result Comment: [facility]???s estimated glomerular filtration rate (eGFR) will [...] individuals. Performed By: #### L [id number] #### [facility] ([facility]) [address] [place] [address] Glucose [Mass/Vol] 96 mg/dL Normal 70-100 [facility] Comment on above: Performed By: #### L [id number] #### [facility] ([facility]) [address] [place] [address] Potassium [Moles/Vol] 4.3 mmol/L Normal 3.5-5.1 [facility] Comment on above: Performed By: #### L [id number] #### [facility] ([facility]) [address] [place] [address] Sodium [Moles/Vol] 140 mmol/L Normal 136-145 [facility] Comment on above: Performed By: #### L [id number] #### [facility] ([facility]) [address] [place] [address] Urea nitrogen [Mass/Vol] 56 mg/dL High 7-25 [facility] Comment on above: Performed By: #### L [id number] #### [facility] ([facility]) [address] [place] [address] UREA NITROGEN/CREATININE (MASS RATIO) IN SER/PLAS 32.0 Normal [facility] Comment on above: Performed By: #### L [id number] #### [facility] ([facility]) [address] [place] [address] CBC WITH AUTO DIFFERENTIALon 01-16-2024 Basophils (Bld) [#/Vol] 0.05 10*3/uL Normal 0.00-0.20 [facility] Comment on above: Performed By: #### L [id number] #### [facility] [facility]) [address] [place] [address] Basophils/100 WBC (Bld) 0.9 % Normal 0.0-1.0 [facility] Comment on above: Performed By: #### L [id number] #### [facility] ([facility]) [address] [place] [address] Eosinophils (Bld) [#/Vol] 0.16 10*3/uL Normal 0.00-0.50 [facility] Comment on above: Performed By: #### L [id number] #### [facility] ([facility]) [address] [place] [address] Eosinophils/100 WBC (Bld) 2.7 % Normal 0.0-6.0 [facility] Comment on above: Performed By: #### L [id number] #### [facility] ([facility]) [address] [place] [address] Erythrocyte distribution width (RBC) [Ratio] 13.7 % Normal 11.5-15.0 [facility] Comment on above: Performed By: #### L [id number] #### [facility] ([facility] [address] [place] [address] ERYTHROCYTE MEAN CORPUSCULAR HEMOGLOBIN CONCENTRATION (G/DL) BY AUTOMATED 31.8 g/dL Low 32.0-35.0 [facility] Comment on above: Performed By: #### L [id number] #### [facility] ([facility]) [address] [place] [address] Hematocrit (Bld) [Volume fraction] 30.8 % Low 36.0-48.0 [facility] Comment on above: Performed By: #### L [id number] #### [facility] ([facility]) [address] [place] [address] Hemoglobin (Bld) [Mass/Vol] 9.8 g/dL Low 12.0-15.0 [facility] Comment on above: Performed By: #### L [id number] #### [facility] ([facility]) [address] [place] [address] Immature granulocytes (Bld) [#/Vol] 0.01 10*3/uL Normal 0.00-0.20 [facility] Comment on above: Performed By: #### L [id number] #### [facility] ([facility]) [address] [place] [address] Immature granulocytes/100 WBC (Bld) 0.2 % Normal 0.0-1.0 [facility] Comment on above: Performed By: #### L [id number] #### [facility] ([facility]) [address] [place] [address] Lymphocytes (Bld) [#/Vol] 0.79 10*3/uL Low 1.20-4.00 [facility] Comment on above: Performed By: #### L [id number] #### [facility] ([facility]) [address] [place] [address] Lymphocytes/100 WBC (Bld) 13.5 % Low 20.0-45.0 [facility] Comment on above: Performed By: #### L [id number] #### [facility] ([facility]) [address] [place] [address] MCH (RBC) [Entitic mass] 31.3 pg Normal 27.0-33.0 [facility] Comment on above: Performed By: #### L [id number] #### [facility] ([facility]) [address] [place] [address] MCV (RBC) [Entitic vol] 98.4 fL High 82.0-98.0 [facility] Comment on above: Performed By: #### L [id number] #### [facility] ([facility]) [address] [place] [address] Monocytes (Bld) [#/Vol] 0.57 10*3/uL Normal 0.10-1.00 [facility] Comment on above: Performed By: #### L [id number] #### [facility] ([facility]) [address] [place] [address] Monocytes/100 WBC (Bld) 9.7 % Normal 5.0-12.0 [facility] Comment on above: Performed By: #### L [id number] #### [facility] ([facility]) [address] [place] [address] Neutrophils (Bld) [#/Vol] 4.28 10*3/uL Normal 1.60-7.60 [facility] Comment on above: Performed By: #### L [id number] #### [facility] ([facility]) [address] [place] [address] Neutrophils/100 WBC (Bld) 73.0 % High 40.0-72.0 [facility] Comment on above: Performed By: #### L [id number] #### [facility] ([facility]) [address] [place] [address] NRBC (PER 100 WBCS) BY AUTOMATED COUNT 0.0 % Normal 0 [facility] Comment on above: Performed By: #### L [id number] #### [facility] ([facility]) [address] [place] [address] PLATELETS (10*3/UL) IN BLOOD AUTOMATED COUNT 229 10*3/uL Normal 150-400 [facility] Comment on above: Performed By: #### L [id number] #### [facility] ([facility]) [address] [place] [address] RBC (Bld) [#/Vol] 3.13 10*6/uL Low 3.80-5.00 [facility] Comment on above: Performed By: #### L [id number] #### [facility] ([facility]) [address] [place] [address] WBC (Bld) [#/Vol] 5.86 10*3/uL Normal 4.00-10.60 [facility] Comment on above: Performed By: #### L [id number] #### [facility] ([facility]) [address] [place] [address] Consulton 01-16-2024 Consult [id number] MontanezMignon nicolas cinthia Leiva 1945 F Date Provider Department Center 01/16/2024 293-MYNOR GALLEGOS MP ORTHO MPORTHO Family History Problem Relation Age of Onset Other Mother Other Mother Heart attack Father's Sister Family Status - Relation Status Age at Mother Father's Sister Level of Service:88765 ME OFFICE/OUTPATIENT ESTABLISHED LOW MDM 20 MIN Reason for Visit and Comments: Pain [136] - Pre-op R TKA Normal [facility] HEMOGLOBIN A1Con 01-16-2024 Glucose [Mass/Vol] 103 mg/dL Normal [facility] Comment on above: Performed By: #### L [id number] ####[facility] ([facility])[address] [facility] [address] HbA1c (Bld) [Mass fraction] 5.2 % Normal 4.0-6.0 [facility] Comment on above: Performed By: #### L [id number] ####[facility] ([facility])[address] [place] [address] HPon 01-16-2024 Orthopedic Surgery Subjective Chief complaint: Chief Complaint Patient presents with Right Knee - Pain Pre-op R TKA 01/16/2024 Lizabeth Montanez is a 78 y.o. year old female presenting for follow up for her Right knee patient with long standing Right knee pain, patient had her Left knee replaced with excellent results she has significant Right knee pain and deformity , she is scheduled for Right TKA and is presenting today with the pre op medical clearance results. She is cleared by her pcp and She is accompanied by her daughter. Patient History Past Surgical History: Procedure Laterality Date CARDIOVERSION SECTION, LOW TRANSVERSE X3 KNEE ARTHROPLASTY Left TONSILLECTOMY Past Medical History: Diagnosis Date Atrial fibrillation (CMS/HCC) COVID-19 Hypertension Left ventricular hypertrophy Nonrheumatic mitral valve regurgitation OA (osteoarthritis) Obesity Osteoarthritis of knee Palpitations PONV (postoperative nausea and vomiting) Pulmonary hypertension (CMS/HCC) Right knee pain Review of Systems Respiratory: Negative for cough. Cardiovascular: Negative for chest pain. Genitourinary: Negative for dysuria and frequency. Musculoskeletal: Positive for arthralgias and gait problem. Skin: Negative for wound. Neurological: Negative for numbness. Objective General examination: Patient is alert oriented x3, not in distress, unlabored breathing. Normal mood, normal affect. Looks uncomfortable HEENT : Normocepahlic , atraumatic, no nasal discharge Eye exam: No conjunctivitis Cardivascular: Radial pulse 2+ normal rate and rhythm, warm well perfused extremities. Pulmonary: No wheezing or cough no laboured breathing. Abdominal exam: soft non tender abdomen. Skin: moist , warm , no rash, no bruising Psychiatristic: Normal mood and affect. Muscloskeletal exam : Exam of the Right knee showed intact skin, obvious varus deformity, ROM 10- 120 deg, no instability, ttp over the medial and lateral joint line, +ve crepitus, no DVT, intact N/V exam LLE. Imaging personally reviewed: X rays of the Right knee 3 showed Right knee advanced degenerative joint disease with bone on bone arthritis, significant deformity and osteophyte formation Assessment/Plan Lizabeth Montanez is a 78 y.o. year old female with severe Right knee osteoarthritis failed conservative treatment , patient is scheduled for Right TKA , patient is cleared for surgery by PCP and Cardiology , I personally reviewed the results of the pre op clearances in clinic today. Patient will hold the elliquis for 48 hours before the procedure. Discussed with the patient all the risks [...] proceed with surgery. Informed consent was obtained. PLAN: Patient is scheduled for Right TKA and is cleared for surgery. Patient's diagnosis significantly interferes with their ability to safely complete ADLs due to weakness and impaired mobility. Patient is safely able to use a rolling walker, raised toilet seat/shower chair. The use of this DME would greatly benefit the patient's ability to complete ADLs. Normal [facility] Labon 01-16-2024 Lab [id number] Mignon Montanez n E 1945 F Date Provider Department [facility] 01/16/2024 2244-[facility] MP LAB RESOURCE DRAW Medical Pavi Family History Problem Relation Age of Onset Other Mother Other Mother Heart attack Father's Sister Family Status - Relation Status Age at Mother Father's Sister Normal [facility] Orders Onlyon 01-16-2024 Orders Only [id number] Mignon Montanez cinthia E 1945 F Date [facility] Department [facility] 01/16/2024 Kezia5-KENNA GAONA [facility] [place] [facility] C Family History Problem Relation Age of Onset Other Mother Other Mother Heart attack Father's Sister Family Status - Relation Status Age at Mother Father's Sister Normal [facility] PROTIME-INRon 01-16-2024 INR IN PPP BY COAGULATION ASSAY 1.34 High 0.90-1.10 [facility] Comment on above: Result Comment: [facility] P RECOMMENDED INR FOR WARFARIN THERAPY CONDITION INR PROPHYLAXIS OF VENOUS THROMBOSIS 2-3 (HIGH-RISK SURGERY) TREATMENT OF VENOUS THROMBOSIS 2-3 TREATMENT OF PULMONARY EMBOLISM 2-3 PREVENTION OF SYSTEMIC EMBOLISM: 2-3 ACUTE MYOCARDIAL INFARCTION TISSUE HEART VALVES VALVULAR HEART DISEASE ATRIAL FIBRILLATION RECURRENT SYSTEMIC EMBOLISM MECHANICAL HEART VALVE 2.5-3.5 FROM: ORAL ANTICOAGULANTS. MECHANISM OF ACTION, CLINICAL EFFECTIVENESS, AND OPTIMAL THERAPEUTIC RANGE. CHEST 1995;108:231S-246S. Performed By: #### L [id number] #### [facility] ([facility]) [address] [place] [address] PROTHROMBIN TIME (PT) IN PPP BY COAGULATION ASSAY 16.6 Seconds High 12.3-14.8 [facility] Comment on above: Performed By: #### L [id number] #### [facility] ([facility]) [address] [place] [address] TYPE AND SCREENon 01-16-2024 AB SCREEN Negative Normal [facility] Comment on above: Performed By: #### L [id number] ####[facility] BLOOD BANK, ABO group Nom (Bld) O Normal [facility] Comment on above: Performed By: #### L [id number] ####[facility] B[facility]OD [facility]ANK, RH TYPE IN BLOOD Positive Normal [facility] Comment on above: Performed By: #### L [id number] ####[facility] B[facility]OD [facility], URINALYSIS MICROSCOPIC WITH REFLEX CULTUREon 01-16-2024 CASTS IN URINE Normal [facility] Comment on above: Performed By: #### L [id number] ####[facility] ([facility])[address] [place] [address] CRYSTALS IN URINE Normal [facility] Comment on above: Performed By: #### L [id number] ####[facility] ([facility])[address] [place] [address] MUCUS (#/HPF) IN URINE SEDIMENT Occasional Normal None Seen, Occasional, Few [facility] Comment on above: Performed By: #### L [id number] ####[facility] ([facility])[address] [place] [address] OTHER MICROSCOPIC ELEMENTS Normal [facility] Comment on above: Performed By: #### L [id number] ####[facility] ([facility])[address] [place] [address] RBC (#/HPF) IN URINE SEDIMENT 0-2 Abnormal None Seen [facility] Comment on above: Performed By: #### L [id number] ####[facility] ([facility])[address] [place] [address] SQUAMOUS EPITHELIAL CELLS (#/HPF) IN URINE SEDIMENT Occasional Normal None Seen, Occasional [facility] Comment on above: Performed By: #### L [id number] ####[facility] ([facility])[address] [place] [address] WBC (LEUKOCYTE) (#/HPF) IN URINE SEDIMENT 3-5 Abnormal None Seen [facility] Comment on above: Performed By: #### L [id number] ####[facility] ([facility])[address] [place] [address] URINALYSIS WITH REFLEX CULTU REon 01-16-2024 BILIRUBIN, TOTAL PRESENCE IN URINE Negative Normal Negative [facility] Comment on above: Performed By: #### L [id number] #### [facility] ([facility]) [address] [place] [address] Clarity (U) Clear Normal Clear [facility] Comment on above: Performed By: #### L [id number] #### [facility] ([facility]) [address] [place] [address] Color (U) Yellow Normal Yellow [facility] Comment on above: Performed By: #### L [id number] #### [facility] ([facility]) [address] [place] [address] Glucose (U) [Mass/Vol] Negative Normal Negative [facility] Comment on above: Performed By: #### L [id number] #### [facility] ([facility]) [address] [place] [address] HEMOGLOBIN PRESENCE IN URINE Negative Normal Negative [facility] Comment on above: Performed By: #### L [id number] #### [facility] ([facility]) [address] [place] [address] Ketones Ql (U) Negative Normal Negative [facility] Comment on above: Performed By: #### L [id number] #### [facility] ([facility]) [address] [place] [address] LEUKOCYTE ESTERASE PRESENCE IN URINE BY TEST STRIP Trace Abnormal Negative [facility] Comment on above: Performed By: #### L [id number] #### [facility] ([facility]) [address] [place] [address] NITRITE PRESENCE IN URINE Negative Normal Negative [facility] Comment on above: Performed By: #### L [id number] #### [facility] ([facility]) [address] [place] [address] pH (U) 5.0 [pH] Normal 5.0-8.0 [facility] Comment on above: Performed By: #### L [id number] #### [facility] ([facility]) [address] [place] [address] Protein (U) [Mass/Vol] Negative Normal Negative [facility] Comment on above: Performed By: #### L [id number] #### [facility] ([facility]) [address] [place] [address] Specific gravity (U) [Rel density] 1.015 Normal 1.015-1.020 [facility] Comment on above: Performed By: #### L [id number] #### [facility] ([facility]) [address] [place] [address] URINE CULTURE, ROUTINEon Bacteria identified Cx Nom (U) 50,000 - 100,000 CFU/ML Uro-Genital Quintin Normal [facility] Comment on above: Performed By: #### L [id number] #### [facility] ([facility]) [address] [place] [address] Orders Onlyon 01-14-2024 Orders Only [id number] Mignon Montanez 1945 F Date Provider Department Center 01/14/2024 60580-COMSNELAINA VELASQUEZ [facility] C Family History Problem Relation Age of Onset Other Mother Other Mother Heart attack Father's Sister Family Status - Relation Status Age at Mother Father's Sister Normal [facility] Office Visiton 01-07-2024 Follow-up visit [id number] Mignon Montanez n E 1945 Date Provider Department Center 01/07/2024 3848-YENI SANTIAGO [facility]ARTIN [facility] Family History Problem Relation Age of Onset Other Mother Other Mother Heart attack Father's Sister Family Status - Relation Status Age at Mother Father's Sister Level of Service:09959 ME OFFICE/OUTPATIENT ESTABLISHED LOW MDM 20 MIN Reason for Visit and Comments: Follow-up [513125] - Patient needs cardiac clearance Normal [facility] Office Visiton 11-28-2023 Follow-up visit [id number] Mignon Montanez n E 1945 F Date Provider Department Center 11/28/2023 MYNOR SANDOVAL MP MPORTHO Family History Problem Relation Age of Onset Other Mother Other Mother Heart attack Father's Sister Family Status - Relation Status Age at Mother Father's Sister Level of Service:19630 ME OFFICE/OUTPATIENT ESTABLISHED MOD MDM 30 MIN Reason for Visit and Comments: Pain [136] - L tka F/U [facility] Office Visiton 09-13-2023 Follow-up visit [id number] Mignon Montanez n E 1945 Date Provider Department Center 09/13/2023 120-LILIA SERRATO MARTIN [facility] Family History Problem Relation Age of Onset Other Mother Other Mother Heart attack Father's Sister Family Status - Relation Status Age at Mother Father's Sister Level of Service:46092 ME OFFICE/OUTPATIENT ESTABLISHED MOD MDM 30-39 MIN Normal [facility] Office Visiton 08-29-2023 Follow-up visit [id number] Mignon Montanez n E 1945 Date Provider Department Center 08/29/2023 293MYNOR PIERCE MP ORTHO MPORTHO Family History Problem Relation Age of Onset Other Mother Other Mother Heart attack Father's Sister Family Status - Relation Status Age at Mother Father's Sister Level of Service:04477 ME POSTOP FOLLOW UP VISIT RELATED TO ORIGINAL PX Reason for Visit and Comments: Pain [136] - L TKA Normal [facility] Office Visiton 07-25-2023 Follow-up visit [id number] Mignon Montanez n E 1945 F Date Provider Department [facility] 07/25/2023 293-MYNOR GALLEGOS MP ORTHO MPORTHO Family History Problem Relation Age of Onset Other Mother Other Mother Heart attack Father's Sister Family Status - Relation Status Age at Mother Father's Sister Level of Service:83816 ME POSTOP FOLLOW UP VISIT RELATED TO ORIGINAL PX Reason for Visit and Comments: Post-op [483] [facility] on 07-18-2023 36 Left VM for Any stating that patient has a MINAL dressing not a wound vac and it does not need to be changed. The box will automatically shut off tomorrow and he or she can cut the tubing near the dressing and leave the dry dressing in place. I left my number if he has an questions. [facility] 36on 07-17-2023 36 ANY FROM [facility] CALLED REQUESTING CLARIFICATION ON WOUND VAC ORDERS FROM L TKA , HE ALSO NEEDS CLARIFICATION ON PT , HE WILL SEE PATIENT 2X/WEEK FOR 2 WEEKS, PLEASE CALL TO CONFIRM // ANY [phone] [facility] Telephoneon 07-17-2023 Telephone [id number] Mignon Montanez cinthia Leiva 1945 [facility] Department [facility] 07/17/2023 559-URIEL DASILVA MP ORTHO LZAARO Family History Problem Relation Age of Onset [...] PLEASE CALL TO CONFIRM // ANY [phone] [facility] on 07-16-2023 30 Problem: Pain - Adul t Goal: Verbalizes/displays adequate comfort level or baseline comfort level Outcome: Progressing The patient is Moderately Stable - Low risk of patient condition declining or worsening The patient's goals for the shift include walk to bathroom The clinical goals for the shift include comfort [facility] 30on 07-15-2023 30 Problem: Pain - Adul t Goal: Verbalizes/displays adequate comfort level or baseline comfort level Outcome: Progressing Problem: Safety - Adult Goal: Free from fall injury Outcome: Progressing The patient is Moderately Stable - Low risk of patient condition declining or worsening The patient's goals for the shift include walk to bathroom The clinical goals for the shift include comfort Normal [facility] BASIC METABOLIC PANELon 10- Anion gap [Moles/Vol] 8 mmol/L Normal 7-20 [facility] Comment on above: Performed By: #### L [id number] #### [facility] ([facility]) [address] [place] [address] Calcium [Mass/Vol] 9.0 mg/dL Normal 8.6-10.3 [facility] Comment on above: Performed By: #### L [id number] #### [facility] ([facility]) [address] [place] [address] Chloride [Moles/Vol] 110 mmol/L High 98-107 [facility] Comment on above: Performed By: #### L [id number] #### [facility] ([facility]) [address] [place] [address] CO2 [Moles/Vol] 19 mmol/L Low 21-31 [facility] Comment on above: Performed By: #### L [id number] #### [facility] ([facility]) [address] [place] [address] Creatinine [Mass/Vol] 1.68 mg/dL High 0.60-1.20 [facility] Comment on above: Performed By: #### L [id number] #### [facility] ([facility]) [address] [place] [address] GLOMERULAR FILTRATION RATE ML/MIN/1.73 SQ M.PREDICTED 31.1 mL/min/1.73m*2 Low >60.0 [facility] Comment on above: Result Comment: [facility]???s estimated glomerular filtration rate (eGFR) will [...] individuals. Performed By: #### L [id number] #### [facility] ([facility]) [address] [place] [address] Glucose [Mass/Vol] 87 mg/dL Normal 70-100 [facility] Comment on above: Performed By: #### L [id number] #### [facility] ([facility]) [address] [place] [address] Potassium [Moles/Vol] 4.1 mmol/L Normal 3.5-5.1 [facility] Comment on above: Performed By: #### L [id number] #### [facility] ([facility]) [address] [place] [address] Sodium [Moles/Vol] 133 mmol/L Low 136-145 [facility] Comment on above: Performed By: #### L [id number] #### [facility] ([facility]) [address] [place] [address] Urea nitrogen [Mass/Vol] 41 mg/dL High 7-25 [facility] Comment on above: Performed By: #### L [id number] #### [facility] ([facility]) [address] [place] [address] UREA NITROGEN/CREATININE (MASS RATIO) IN SER/PLAS 24.4 Normal [facility] Comment on above: Performed By: #### L [id number] #### [facility] ([facility]) [address] [place] [address] CBCon 07-15-2023 Erythrocyte distribution width (RBC) [Ratio] 13.6 % Normal 11.5-15.0 [facility] Comment on above: Performed By: #### L [id number] ####[facility] ([facility])[address] [place] [address] ERYTHROCYTE MEAN CORPUSCULAR HEMOGLOBIN CONCENTRATION (G/DL) BY AUTOMATED 31.1 g/dL Low 32.0-35.0 [facility] Comment on above: Performed By: #### L [id number] ####[facility] ([facility])[address] [place] [address] Hematocrit (Bld) [Volume fraction] 24.1 % Low 36.0-48.0 [facility] Comment on above: Performed By: #### L [id number] ####[facility] ([facility])[address] [place] [address] Hemoglobin (Bld) [Mass/Vol] 7.5 g/dL Low 12.0-15.0 [facility] Comment on above: Performed By: #### L [id number] ####[facility] ([facility])[address] [address] MCH (RBC) [Entitic mass] 32.5 pg Normal 27.0-33.0 [facility] Comment on above: Performed By: #### L [id number] ####[facility] ([facility])[address] [place] [address] MCV (RBC) [Entitic vol] 104.3 fL High 82.0-98.0 [facility] Comment on above: Performed By: #### L [id number] ####[facility] ([facility])[address] [place] [address] PLATELETS (10*3/UL) IN BLOOD AUTOMATED COUNT 151 10*3/uL Normal 150-400 [facility] Comment on above: Performed By: #### L [id number] ####[facility] ([facility])[address] [place] [address] RBC (Bld) [#/Vol] 2.31 10*6/uL Low 3.80-5.00 [facility] Comment on above: Performed By: #### L [id number] ####[facility] ([facility])[address] [place] [address] WBC (Bld) [#/Vol] 8.66 10*3/uL Normal 4.00-10.60 [facility] Comment on above: Performed By: #### L [id number] ####[facility] ([facility] [place] [address] 30on 07-14-2023 30 PT/OT rec SNF today. [...] Pt requests referrals be sent to Peter Pedroza and Beb[facility]. SW sent. Normal [facility] BASIC METABOLIC PANELon 06-30 Anion gap [Moles/Vol] 10 mmol/L Normal 7-20 [facility] Comment on above: Performed By: #### L [id number] #### [facility] ([facility]) [address] [place] [address] Calcium [Mass/Vol] 9.4 mg/dL Normal 8.6-10.3 [facility] Comment on above: Performed By: #### L [id number] #### [facility] ([facility]) [address] [place] [address] Chloride [Moles/Vol] 109 mmol/L High 98-107 [facility] Comment on above: Performed By: #### L [id number] #### [facility] ([facility]) [address] [place] [address] CO2 [Moles/Vol] 21 mmol/L Normal 21-31 [facility] Comment on above: Performed By: #### L [id number] #### [facility] ([facility]) [address] [place] [address] Creatinine [Mass/Vol] 1.66 mg/dL High 0.60-1.20 [facility] Comment on above: Performed By: #### L [id number] #### [facility] ([facility]) [address] [place] [address] GLOMERULAR FILTRATION RATE ML/MIN/1.73 SQ M.PREDICTED 31.6 mL/min/1.73m*2 Low >60.0 [facility] Comment on above: Result Comment: [facility]???s estimated glomerular filtration rate (eGFR) will [...] group of individuals. Performed By: #### L [id number] #### [facility] ([facility]) [address] [place] [address] Glucose [Mass/Vol] 100 mg/dL Normal 70-100 [facility] Comment on above: Performed By: #### L [id number] #### [facility] ([facility]) [address] [place] [address] Potassium [Moles/Vol] 4.7 mmol/L Normal 3.5-5.1 [facility] Comment on above: Performed By: #### L [id number] #### [facility] ([facility]) [address] [place] [address] Sodium [Moles/Vol] 135 mmol/L Low 136-145 [facility] Comment on above: Performed By: #### L [id number] #### [facility] ([facility]) [address] [place] [address] Urea nitrogen [Mass/Vol] 38 mg/dL High 7-25 [facility] Comment on above: Performed By: #### L [id number] #### [facility] ([facility]) [address] [place] [address] UREA NITROGEN/CREATININE (MASS RATIO) IN SER/PLAS 22.9 Normal [facility] Comment on above: Performed By: #### L [id number] #### [facility] ([facility]) [address] [place] [address] CBCon 07-14-2023 Erythrocyte distribution width (RBC) [Ratio] 13.5 % Normal 11.5-15.0 [facility] Comment on above: Performed By: #### L [id number] ####[facility] ([facility])[address] [address] ERYTHROCYTE MEAN CORPUSCULAR HEMOGLOBIN CONCENTRATION (G/DL) BY AUTOMATED 31.4 g/dL Low 32.0-35.0 [facility] Comment on above: Performed By: #### L [id number] ####[facility] ([facility])[address] [address] Hematocrit (Bld) [Volume fraction] 24.5 % Low 36.0-48.0 [facility] Comment on above: Performed By: #### L [id number] ####[facility] ([facility])[address] [place] [address] Hemoglobin (Bld) [Mass/Vol] 7.7 g/dL Low 12.0-15.0 [facility] Comment on above: Performed By: #### L [id number] ####[facility] ([facility])[address] [place] [address] MCH (RBC) [Entitic mass] 32.4 pg Normal 27.0-33.0 [facility] Comment on above: Performed By: #### L [id number] ####[facility] ([facility])[address] [place] [address] MCV (RBC) [Entitic vol] 102.9 fL High 82.0-98.0 [facility] Comment on above: Performed By: #### L [id number] ####[facility] ([facility])[address] [place] [address] PLATELETS (10*3/UL) IN BLOOD AUTOMATED COUNT 148 10*3/uL Low 150-400 [facility] Comment on above: Performed By: #### L [id number] ####[facility] ([facility])[address] [place] [address] RBC (Bld) [#/Vol] 2.38 10*6/uL Low 3.80-5.00 [facility] Comment on above: Performed By: #### L [id number] ####[facility] ([facility])[address] [place] [address] WBC (Bld) [#/Vol] 11.57 10*3/uL High 4.00-10.60 [facility] Comment on above: Performed By: #### L [id number] ####[facility] ([facility])[address] [place] [address] FERRITINon 07-14-2023 FERRITIN (NG/ML) IN SER/PLAS 364.0 ng/mL High 11.0-307.0 [facility] Comment on above: Performed By: #### L [id number] ####[facility] ([facility])[address] [place] [address] FOLATEon 07-14-2023 FOLATE (NG/ML) IN SER/PLAS 14.79 ng/mL Normal 6.6-1000 [facility] Comment on above: Performed By: #### L [id number] #### [facility] ([facility]) [address] [place] [address] IRON AND TIBCon 07-14-2023 IRON (UG/DL) IN SER/PLAS 36 ug/dL Low 50-212 [facility] Comment on above: Performed By: #### L [id number] #### [facility] ([facility]) [address] [place] [address] IRON BINDING CAPACITY (UG/DL) IN SER/PLAS 218 ug/dL Low 250-450 [facility] Comment on above: Performed By: #### L [id number] #### [facility] ([facility]) [address] [place] [address] IRON BINDING CAPACITY.UNSATURATE D (UG/DL) IN SER/PLAS 182.0 ug/dL Normal 155.0-355.0 [facility] Comment on above: Performed By: #### L [id number] #### [facility] ([facility]) [address] [place] [address] IRON SATURATION (%) IN SER/PLAS 17 % Low 20-50 [facility] Comment on above: Performed By: #### L [id number] #### [facility] ([facility]) [address] [place] [address] VITAMIN B12on 07-14-2023 Cobalamin (Vitamin B12) [Mass/Vol] 744 pg/mL Normal 180-914 [facility] Comment on above: Result Comment: REFE RENCE RANGES: 180-914 pg/mL Normal 145-179 pg/mL Indeterminate <145 pg/mL Deficient Performed By: #### L [id number] #### [facility] ([facility]) [address] [place] [address] 30on 07-13-2023 30 The patient is Moderately Stable - Low risk of patient condition declining or worsening The patient's goals for the shift include walk to bathroom The clinical goals for the shift include comfort Over the shift, the patient did not make progress toward the following goals. Barriers to progression include unsteadiness. Recommendations to address these barriers include emotional support, PT/OT, ambulating . Normal [facility] 30 Unable to get pt. Follow up appointment through central scheduling. AVS instructs pt. To call Ortho to schedule Normal [facility] 30 The patient is Moderately Stable - Low risk of patient condition declining or worsening The patient's goals for the shift include comfort The clinical goals for the shift include comfort Over the shift, the patient did not make progress toward the following goals. Barriers to progression include pain. Recommendations to address these barriers include polar pack, rest, emotional support. Normal [facility] BASIC METABOLIC PANELon 06-30 Anion gap [Moles/Vol] 13 mmol/L Normal 7-20 [facility] Comment on above: Performed By: #### L [id number] ####[facility] ([facility])[address] [place] [address] Calcium [Mass/Vol] 10.0 mg/dL Normal 8.6-10.3 [facility] Comment on above: Performed By: #### L [id number] ####[facility] ([facility])[address] [place] [address] Chloride [Moles/Vol] 111 mmol/L High 98-107 [facility] Comment on above: Performed By: #### L [id number] ####[facility] ([facility])[address] [place] [address] CO2 [Moles/Vol] 19 mmol/L Low 21-31 [facility] Comment on above: Performed By: #### L [id number] ####[facility] ([facility] [place] [address] Creatinine [Mass/Vol] 1.47 mg/dL High 0.60-1.20 [facility] Comment on above: Performed By: #### L [id number] ####[facility] ([facility])[address] [place] [address] GLOMERULAR FILTRATION RATE ML/MIN/1.73 SQ M.PREDICTED 36.5 mL/min/1.73m*2 Low >60.0 [facility] Comment on above: Result Comment: [facility]???s estimated glomerular filtration rate (eGFR) will [...] of individuals. Performed By: #### L [id number] ####[facility] ([facility])[address] [place] [address] Glucose [Mass/Vol] 167 mg/dL High 70-100 [facility] Comment on above: Performed By: #### L [id number] ####[facility] ([facility])[address] [place] [address] Potassium [Moles/Vol] 4.5 mmol/L Normal 3.5-5.1 [facility] Comment on above: Performed By: #### L [id number] ####[facility] ([facility])[address] [place] [address] Sodium [Moles/Vol] 138 mmol/L Normal 136-145 [facility] Comment on above: Performed By: #### L [id number] ####[facility] ([facility])[address] [place] [address] Urea nitrogen [Mass/Vol] 34 mg/dL High 7-25 [facility] Comment on above: Performed By: #### L [id number] ####[facility] ([facility] [place] [address] UREA NITROGEN/CREATININE (MASS RATIO) IN SER/PLAS 23.1 Normal [facility] Comment on above: Performed By: #### L [id number] ####[facility] ([facility])[address] [place] [address] CBCon 07-13-2023 Erythrocyte distribution width (RBC) [Ratio] 13.4 % Normal 11.5-15.0 [facility] Comment on above: Performed By: #### L [id number] #### [facility] ([facility]) [address] [place] [address] ERYTHROCYTE MEAN CORPUSCULAR HEMOGLOBIN CONCENTRATION (G/DL) BY AUTOMATED 31.1 g/dL Low 32.0-35.0 [facility] Comment on above: Performed By: #### L [id number] #### [facility] ([facility]) [address] [place] [address] Hematocrit (Bld) [Volume fraction] 27.0 % Low 36.0-48.0 [facility] Comment on above: Performed By: #### L [id number] #### [facility] ([facility]) [address] [place] [address] Hemoglobin (Bld) [Mass/Vol] 8.4 g/dL Low 12.0-15.0 [facility] Comment on above: Performed By: #### L [id number] #### [facility] ([facility]) [address] [place] [address] MCH (RBC) [Entitic mass] 32.6 pg Normal 27.0-33.0 [facility] Comment on above: Performed By: #### L [id number] #### [facility] ([facility]) [address] [place] [address] MCV (RBC) [Entitic vol] 104.7 fL High 82.0-98.0 [facility] Comment on above: Performed By: #### L [id number] #### [facility] ([facility]) [address] [place] [address] PLATELETS (10*3/UL) IN BLOOD AUTOMATED COUNT 147 10*3/uL Low 150-400 [facility] Comment on above: Performed By: #### L [id number] #### [facility] ([facility]) [address] [place] [address] RBC (Bld) [#/Vol] 2.58 10*6/uL Low 3.80-5.00 [facility] Comment on above: Performed By: #### L [id number] #### [facility] ([facility]) [address] [place] [address] WBC (Bld) [#/Vol] 9.44 10*3/uL Normal 4.00-10.60 [facility] Comment on above: Performed By: #### L [id number] #### [facility] ([facility]) [address] [place] [address] HPon 07-12-2023 H&P reviewed. The patient was examined and there are no changes to the H&P. I personally examined the patient and Marked his operative extremity, all questions answered and consents signed. Discussed operative and post op plan. Normal [facility] OPNOTEon 07-12-2023 OPNOTE ARTHROPLASTY, KNEE, TOTAL (L) Operative Note Date: 07/12/2023 Location: [facility] OR Name: Lizabeth Montanez, : 1945, Diagnosis Pre-op Diagnosis * Localized osteoarthritis of left knee [M17.12] Post-op Diagnosis * Localized osteoarthritis of left knee [M17.12] Procedures ARTHROPLASTY, KNEE, TOTAL [id number] - ME ARTHRP KNE CONDYLE&PLATU MEDIAL&LAT COMPARTMENTS Surgeons * Mynor Gallegos - Primary Ari Dey MD Procedure Summary Anesthesia: General ASA: III Estimated Blood Loss: 700 mL Drains: Urethral Catheter Non-latex 16 Fr. (Active) Site Assessment Clean;Skin intact 07/12/231400 Collection Container Standard drainage bag 07/12/231400 Securement Method Securing device (Describe) 07/12/231400 Reason for Continuing Urinary Catheterization Critically ill in ICU, hourly outputs 07/12/231400 Implants Type Name Action Serial No. Bone Cement CEMENT,BONE,R,1X40US - [id number] Implanted Bone Cement CEMENT,BONE,R,1X40US - [id number] Implanted PERSONA FEMUR CEMENTED CRUCIATE RETAINING Implanted [...] 13 mm , Biomet bone cement. Staff: Membership Director: Ju Rios; Rebecca Bertrand RN Relief Scrub: Hazel Baez Scrub Person: Ke Pike, DAGMAR Logistics Manager: Sampson Almaraz CSA Indications: Lizabeth Montanez is [...] the dorothy (more content not included)... Normal [facility] POCT GLUCOSE METER UNSOLICIT ED RESULTSon 07-12-2023 Glucose [Mass/Vol] 108 mg/dL High 70-105 [facility] Comment on above: Order Comment: Waive d Testing in the ED is performed under the ED CLIA certificate #[id number]. Result Comment: dhol as Performed By: #### L [id number] #### [facility] ([facility]) [address] [place] [address] [id number] 07-08-2023 [id number] NPO AFTER MN NO JEWELRY BRING INS AND ID ARRIVE AT [facility] HOLD ELIQUIS 07/09 STARTING PM DOSE HOLD NSAIDS STARTING TODAY 07/08 HOLD CELEBREX STARTING TOMORROW 07/09 TAKE HYDRALIZINE, DILTELZIEM, AND BISOPROLOL DAY OF SURGERY WITH SMALL SIP OF WATER. Normal [facility] Orders Onlyon 07-08-2023 Orders Only [id number] Mignon Montanez E 1945 F Date Provider Department Center 07/08/2023 KENNA SCHWARTZ [facility] Family History Problem Relation Age of Onset Other Mother Other Mother Heart attack Father's Sister Family Status - Relation Status Age at Mother Father's Sister [facility] 36on 07-02-2023 37 Patient wants to kno w if akira can addend his note for surgery clearance, from 01/28/23, [facility] Telephoneon 07-02-2023 Telephone [id number] Mignon Montanez E 1945 F Date Provider Department Center 07/02/2023 ANNE FUCHS [facility] MP[facility]THO Family History Problem Relation Age of Onset Other Mother Other Mother Heart attack Father's Sister Family Status - Relation Status Age at Mother Father's Sister [facility] APTTon 06-27-2023 ACTIVATED PARTIAL THROMBOPLASTIN TIME IN PPP BY COAGULATION ASSAY 32.4 Seconds Normal 25.0-35.0 [facility] Comment on above: Result Comment: Clin ical significance of the APTT is questionable in the presence of heparin. Performed By: #### L [id number] #### [facility] ([facility]) [address] [place] [address] BASIC METABOLIC PANELon 06-01 Anion gap [Moles/Vol] 10 mmol/L Normal 7-20 [facility] Comment on above: Performed By: #### L [id number] #### [facility] ([facility]) [address] [address] Calcium [Mass/Vol] 11.5 mg/dL High 8.6-10.3 [facility] Comment on above: Performed By: #### L [id number] #### [facility] ([facility]) [address] [place] [address] Chloride [Moles/Vol] 113 mmol/L High 98-107 [facility] Comment on above: Performed By: #### L [id number] #### [facility] ([facility] [address] [place] [address] CO2 [Moles/Vol] 22 mmol/L Normal 21-31 [facility] Comment on above: Performed By: #### L [id number] #### [facility] ([facility] [address] [place] [address] Creatinine [Mass/Vol] 1.71 mg/dL High 0.60-1.20 [facility] Comment on above: Performed By: #### L [id number] #### [facility] ([facility]) [address] [place] [address] GLOMERULAR FILTRATION RATE ML/MIN/1.73 SQ M.PREDICTED 30.5 mL/min/1.73m*2 Low >60.0 [facility] Comment on above: Result Comment: [facility]???s estimated glomerular filtration rate (eGFR) will [...] individuals. Performed By: #### L AB15 #### [facility] ([facility] [address] [place] [address] Glucose [Mass/Vol] 98 mg/dL Normal 70-100 [facility] Comment on above: Performed By: #### L [id number] #### [facility] ([facility]) [address] [place] [address] Potassium [Moles/Vol] 5.2 mmol/L High 3.5-5.1 [facility] Comment on above: Performed By: #### L AB15 #### [facility] ([facility]) [address] [place] [address] Sodium [Moles/Vol] 140 mmol/L Normal 136-145 [facility] Comment on above: Performed By: #### L [id number] #### [facility] ([facility]) [address] [place] [address] Urea nitrogen [Mass/Vol] 39 mg/dL High 7-25 [facility] Comment on above: Performed By: #### L [id number] #### [facility] ([facility]) [address] [place] [address] UREA NITROGEN/CREATININE (MASS RATIO) IN SER/PLAS 22.8 Normal [facility] Comment on above: Performed By: #### L [id number] #### [facility] ([facility]) [address] [place] [address] CBC WITH AUTO DIFFERENTIALon 06-27-2023 Basophils (Bld) [#/Vol] 0.04 10*3/uL Normal 0.00-0.20 [facility] Comment on above: Performed By: #### L [id number] #### [facility] ([facility] [place]) [address] [place] [address] Basophils/100 WBC (Bld) 0.6 % Normal 0.0-1.0 [facility] Comment on above: Performed By: #### L [id number] #### [facility] ([facility] [place]) [address] [place] [address] Eosinophils (Bld) [#/Vol] 0.16 10*3/uL Normal 0.00-0.50 [facility] Comment on above: Performed By: #### L [id number] #### [facility] (BEAKER) [address] [place] [address] Eosinophils/100 WBC (Bld) 2.5 % Normal 0.0-6.0 [facility] Comment on above: Performed By: #### L [id number] #### [facility] ([facility] [address] [place] [address] Erythrocyte distribution width (RBC) [Ratio] 13.4 % Normal 11.5-15.0 [facility] Comment on above: Performed By: #### L [id number] #### [facility] ([facility] [place]) [address] [place] [address] ERYTHROCYTE MEAN CORPUSCULAR HEMOGLOBIN CONCENTRATION (G/DL) BY AUTOMATED 32.3 g/dL Normal 32.0-35.0 [facility] Comment on above: Performed By: #### L [id number] #### [facility] ([facility] [place]) [address] [place] [address] Hematocrit (Bld) [Volume fraction] 31.0 % Low 36.0-48.0 [facility] Comment on above: Performed By: #### L [id number] #### [facility] ([facility] [place]) [address] [place] [address] Hemoglobin (Bld) [Mass/Vol] 10.0 g/dL Low 12.0-15.0 [facility] Comment on above: Performed By: #### L [id number] #### [facility] ([facility] [address] [place] [address] Immature granulocytes (Bld) [#/Vol] 0.02 10*3/uL Normal 0.00-0.20 [facility] Comment on above: Performed By: #### L [id number] #### [facility] (BEAKER) [address] [place] [address] Immature granulocytes/100 WBC (Bld) 0.3 % Normal 0.0-1.0 [facility] Comment on above: Performed By: #### L AB45 #### [facility] (BEAKER) [address] [place] [address] Lymphocytes (Bld) [#/Vol] 1.05 10*3/uL Low 1.20-4.00 [facility] Comment on above: Performed By: #### L [id number] #### [facility] (BEAKER) [address] [place] [address] Lymphocytes/100 WBC (Bld) 16.2 % Low 20.0-45.0 [facility] Comment on above: Performed By: #### L [id number] #### [facility] (BEAKER) [address] [place] [address] MCH (RBC) [Entitic mass] 32.9 pg Normal 27.0-33.0 [facility] Comment on above: Performed By: #### L [id number] #### [facility] (BE[facility]ER) [address] [place] [address] MCV (RBC) [Entitic vol] 102.0 fL High 82.0-98.0 [facility] Comment on above: Performed By: #### L [id number] #### [facility] ([facility]) [address] [place] [address] Monocytes (Bld) [#/Vol] 0.50 10*3/uL Normal 0.10-1.00 [facility] Comment on above: Performed By: #### L [id number] #### [facility] (BEAKER) [address] [place] [address] Monocytes/100 WBC (Bld) 7.7 % Normal 5.0-12.0 [facility] Comment on above: Performed By: #### L [id number] #### [facility] (BEAKER) [address] [place] [address] Neutrophils (Bld) [#/Vol] 4.72 10*3/uL Normal 1.60-7.60 [facility] Comment on above: Performed By: #### L [id number] #### [facility] (BEAKER) [address] [place] [address] Neutrophils/100 WBC (Bld) 72.7 % High 40.0-72.0 [facility] Comment on above: Performed By: #### L [id number] #### [facility] ([facility] [place]) [address] [place] [address] NRBC (PER 100 WBCS) BY AUTOMATED COUNT 0.0 % Normal 0 [facility] Comment on above: Performed By: #### L [id number] #### [facility] ([facility] [place]) [address] [place] [address] PLATELETS (10*3/UL) IN BLOOD AUTOMATED COUNT 191 10*3/uL Normal 150-400 [facility] Comment on above: Performed By: #### L [id number] #### [facility] ([facility] [place]) [address] [place] [address] RBC (Bld) [#/Vol] 3.04 10*6/uL Low 3.80-5.00 [facility] Comment on above: Performed By: #### L [id number] #### [facility] ([facility] [place]) [address] [place] [address] WBC (Bld) [#/Vol] 6.49 10*3/uL Normal 4.00-10.60 [facility] Comment on above: Performed By: #### L [id number] #### [facility] ([facility] [place]) [address] [place] [address] Consulton 06-27-2023 Consult [id number] Mignon Montanez E 1945 F Date Provider Department Center 06/27/2023 MYNOR SANDOVAL MP ORTHO MPORTHO Family History Problem Relation Age of Onset Other Mother Other Mother Heart attack Father's Sister Family Status - Relation Status Age at Mother Father's Sister Level of Service:06892 ME OFFICE/OUTPATIENT ESTABLISHED LOW MDM 20-29 MIN (GC) Reason for Visit and Comments: Pre-op Exam [[id number]] Normal [facility] HEMOGLOBIN A1Con 06-27-2023 Glucose [Mass/Vol] 97 mg/dL Normal [facility] Comment on above: Performed By: #### L AB69 #### [facility] (BEAKER) [address] [place] [address] HbA1c (Bld) [Mass fraction] 5.0 % Normal 4.0-6.0 [facility] Comment on above: Performed By: #### L AB69 #### [facility] (BEAKER) [address] [place] [address] HPon 06-27-2023 Orthopedic Surgery Subjective Pre-op Exam of [...] was obtained. -06/06/[address] Santiago: Moderate risk for procedure and can proceed without additional testing. 06/24/[address] Rayo. -Left total knee arthroplasty 07/12/2023 Riki Le [...] an additional personal documentation from me. Normal [facility] Labon 06-27-2023 Lab [id number] Mignon Montanez Abbie 1945 F Date Provider Department Center 06/27/2023 2244-[facility] MP LAB RESOURCE MP DRAW Medical Pavi Family History Problem Relation Age of Onset Other Mother Other Mother Heart attack Father's Sister Family Status - Relation Status Age at Mother Father's Sister Normal [facility] MRSA/MSSA DNA NASALon 2022 MRSA DNA Negative Normal Negative [facility] Comment on above: Order Comment: Testi [...] preclude nasal colonization. Performed By: #### L [id number] #### [facility] [employer]) [address] [place] [address] MSSA DNA Positive Abnormal Negative [facility] Comment on above: Order Comment: Testi [...] preclude nasal colonization. Performed By: #### L AB15 #### [facility] [employer]) [address] [place] [address] PROTIME-INRon 06-27-2023 INR IN PPP BY COAGULATION ASSAY 1.38 High 0.90-1.10 [facility] Comment on above: Result Comment: ACCC P RECOMMENDED INR FOR WARFARIN THERAPY CONDITION INR PROPHYLAXIS OF VENOUS THROMBOSIS 2-3 (HIGH-RISK SURGERY) TREATMENT OF VENOUS THROMBOSIS 2-3 TREATMENT OF PULMONARY EMBOLISM 2-3 PREVENTION OF SYSTEMIC EMBOLISM: 2-3 ACUTE MYOCARDIAL INFARCTION TISSUE HEART VALVES VALVULAR HEART DISEASE ATRIAL FIBRILLATION RECURRENT SYSTEMIC EMBOLISM MECHANICAL HEART VALVE 2.5-3.5 FROM: ORAL ANTICOAGULANTS. MECHANISM OF ACTION, CLINICAL EFFECTIVENESS, AND OPTIMAL THERAPEUTIC RANGE. CHEST 1995;108:[id number]. Performed By: #### L [id number] #### [facility] [employer]) [address] [facility] [place] [address] PROTHROMBIN TIME (PT) IN PPP BY COAGULATION ASSAY 17.0 Seconds High 12.3-14.8 [facility] Comment on above: Performed By: #### L AB15 #### [facility] ([facility] [place]) [address] [place] [address] TYPE AND SCREENon 06-27-2023 AB SCREEN Negative Normal [facility] Comment on above: Performed By: #### L AB15 #### [facility] ([facility] [place]) [address] [place] [address] ABO group Nom (Bld) O Normal [facility] Comment on above: Performed By: #### L [id number] #### [facility] ([facility] [place]) [address] [place] [address] RH TYPE IN BLOOD Positive Normal [facility] Comment on above: Performed By: #### L [id number] #### [facility] ([facility] [place]) [address] [place] [address] URINALYSIS MICROSCOPIC WITH REFLEX CULTUREon 06-27-2023 CASTS IN URINE Normal [facility] Comment on above: Performed By: #### L AB15 #### [facility] ([facility] [place]) [address] [place] [address] CRYSTALS IN URINE Normal [facility] Comment on above: Performed By: #### L AB15 #### [facility] ([facility] [place]) [address] [place] [address] OTHER MICROSCOPIC ELEMENTS Normal [facility] Comment on above: Performed By: #### L [id number] #### [facility] ([facility] [place]) [address] [place] [address] RBC (#/HPF) IN URINE SEDIMENT None Seen Normal None Seen [facility] Comment on above: Performed By: #### L AB15 #### [facility] ([facility] [place]) [address] [place] [address] SQUAMOUS EPITHELIAL CELLS (#/HPF) IN URINE SEDIMENT Moderate Abnormal None Seen, Occasional [facility] Comment on above: Performed By: #### L [id number] #### [facility] ([facility] [place]) [address] [place] [address] WBC (LEUKOCYTE) (#/HPF) IN URINE SEDIMENT 3-5 Abnormal None Seen [facility] Comment on above: Performed By: #### L AB15 #### [facility] ([facility] [place]) [address] [place] [address] URINALYSIS WITH REFLEX CULTU REon 06-27-2023 BILIRUBIN, TOTAL PRESENCE IN URINE Negative Normal Negative [facility] Comment on above: Performed By: #### L AB15 #### [facility] ([facility] [place]) [address] [place] [address] Clarity (U) Clear Normal Clear [facility] Comment on above: Performed By: #### L AB15 #### [facility] ([facility] [place]) [address] [place] [address] Color (U) Yellow Normal Yellow [facility] Comment on above: Performed By: #### L AB15 #### [facility] ([facility] [place]) [address] [place] [address] Glucose (U) [Mass/Vol] Negative Normal Negative [facility] Comment on above: Performed By: #### L AB15 #### [facility] ([facility] [place]) [address] [place] [address] HEMOGLOBIN PRESENCE IN URINE Negative Normal Negative [facility] Comment on above: Performed By: #### L AB15 #### [facility] ([facility] [place]) [address] [place] [address] Ketones Ql (U) Negative Normal Negative [facility] Comment on above: Performed By: #### L AB15 #### [facility] ([facility] [place]) [address] [place] [address] LEUKOCYTE ESTERASE PRESENCE IN URINE BY TEST STRIP Trace Abnormal Negative [facility] Comment on above: Performed By: #### L [id number] #### [facility] ([facility] [place]) [address] [place] [address] NITRITE PRESENCE IN URINE Negative Normal Negative [facility] Comment on above: Performed By: #### L AB15 #### [facility] ([facility] [place]) [address] [place] [address] pH (U) 5.0 [pH] Normal 5.0-8.0 [facility] Comment on above: Performed By: #### L AB15 #### [facility] ([facility] [place]) [address] [place] [address] Protein (U) [Mass/Vol] Negative Normal Negative [facility] Comment on above: Performed By: #### L [id number] #### [facility] ([facility] [place]) [address] [place] [address] Specific gravity (U) [Rel density] 1.015 Normal 1.015-1.020 [facility] Comment on above: Performed By: #### L AB15 #### [facility] ([facility] [place]) [address] [place] [address] URINE CULTURE, ROUTINEon Bacteria identified Cx Nom (U) 10,000 - 50,000 CF/ML Uro-Genital Quintin Normal [facility] Comment on above: Performed By: #### L [id number] ####[facility] ([facility] [place])[address] [place] [address] XR KNEE JUAN JOSE 3 Von 02-27-2023 XR KNEE JUAN JOSE 3 V EXAMINATION: XR KNEE JUAN JOSE 3 V HISTORY: Osteoarthritis of knee ; chronic bilateral knee pain COMPARISON: XR knee bilateral 04/20/2021 FINDINGS: RIGHT FINDINGS: BONES: Complete loss of the anterior, medial, lateral joint spaces with ttrv-fc-oiwk articulation and marked sclerosis. Lateral subluxation of the tibial plafond in relation to the femoral condyles. Large periarticular degenerative osteophytes involving all 3 compartments. SOFT TISSUES: No visible soft tissue swelling. OTHER: Large joint effusion. LEFT FINDINGS: BONES: Marked narrowing of the anterior, medial, lateral joint spaces with near smzl-cr-anpx articulation and subchondral sclerosis. Prominent lateral subluxation of the tibial plafond in relation to the femoral condyles. Large periarticular degenerative osteophytes involving all 3 compartments. SOFT TISSUES: No visible soft tissue swelling. OTHER: Large joint effusion. IMPRESSION: RIGHT CONCLUSION: Advanced degenerative joint disease. LEFT CONCLUSION: Advanced degenerative joint disease. Electronically authenticated by: SHILA FALCON Date: 2023-02-27 16:24 Normal [facility] CBC AUTO DIFFon 12-26-2022 BASO # 0.0 103/ul Normal 0.0-0.1 [facility] Comment on above: Performed By: #### C BC ####[facility] [address] [place] [address]Dr. Malia Bustamante Basophils/100 WBC (Bld) 0.5 % Normal 0.2-2.0 [facility] Comment on above: Performed By: #### C BC ####[facility] [address] [place], [place] [address]Dr. Malia Bustamante EO # 0.2 103/ul Normal 0.0-0.7 [facility] Comment on above: Performed By: #### C BC ####[facility] [address] [place], [place] [address]Dr. Malia Bustamante Eosinophils/100 WBC (Bld) 3.2 % Normal 0.9-7.0 [facility] Comment on above: Performed By: #### C BC ####[facility] [address] [place], [place] [address]Dr. Malia Bustamante Erythrocyte distribution width (RBC) [Ratio] 13.5 % Normal 11.0-15.0 [facility] Comment on above: Performed By: #### C BC ####[facility] [address] [place], [place] [address]Dr. Malia Bustamante Hematocrit (Bld) [Volume fraction] 31.8 % Critically low 36.0-48.0 [facility] Comment on above: Performed By: #### C BC ####[facility] [address] [place], [place] [address]Dr. Malia Bustamante Hemoglobin (Bld) [Mass/Vol] 10.1 g/dL Critically low 12.0-16.0 [facility] Comment on above: Performed By: #### C BC ####[facility] [address] [place] [id number]. Malia Bustamante IG # 0.02 10e3/ul Normal 0.00-0.03 [facility] Comment on above: Performed By: #### C BC ####[facility] [address] [place] [address]Dr. Malia Bustamante IG % 0.4 % Normal 0.0-0.5 [facility] Comment on above: Performed By: #### C BC ####[facility] [address] [place] [address]Dr. Malia Robby LYMPH # 0.8 103/ul Critically low 1.2-3.8 [facility] Comment on above: Performed By: #### C BC ####[facility] [address] [place] [address]Dr. Flakitatahir Bustamante Lymphocytes/100 WBC (Bld) 13.8 % Critically low 20.5-60.0 [facility] Comment on above: Performed By: #### C BC ####[facility] [address] [place] [address]Dr. Flakitatahir Bustamante MANUAL DIFF REQ NO Normal [facility] Comment on above: Performed By: #### C BC ####[facility] [address] [place] [address]Dr. Malia Bustamante MCH (RBC) [Entitic mass] 32.0 pg Normal 26.7-34.0 [facility] Comment on above: Performed By: #### C BC ####[facility] [address] [place] [address]Dr. Malia Robby MCHC (RBC) [Mass/Vol] 31.8 g/dL Normal 29.9-35.2 [facility] Comment on above: Performed By: #### C BC ####[facility] [address] [place] [address]Dr. Malia Robby MCV (RBC) [Entitic vol] 100.6 fL Critically high 81.0-99.0 [facility] Comment on above: Performed By: #### C BC ####[facility] [address] [place] [id number]. Malia Bustamante MONO # 0.4 103/ul Normal 0.3-0.8 [facility] Comment on above: Performed By: #### C BC ####[facility] [address] [place] [id number]. Malia Bustamante Monocytes/100 WBC (Bld) 7.9 % Normal 1.7-12.0 [facility] Comment on above: Performed By: #### C BC ####[facility] [address] [place] [id number]. Malia Bustamante NEUT # 4.2 103/ul Normal 1.4-6.5 [facility] Comment on above: Performed By: #### C BC ####[facility] [address] [place] [id number]. Malia Bustamante Neutrophils/100 WBC (Bld) 74.2 % Normal 43.0-75.0 [facility] Comment on above: Performed By: #### C BC ####[facility] [address] [place] [id number]. Malia Bustamante Platelet mean volume (Bld) [Entitic vol] 11.2 fL Normal 9.5-13.5 [facility] Comment on above: Performed By: #### C BC ####[facility] [address] [place] [id number]. Malia Bustamante PLT 165 103/ul Normal 150-450 [facility] Comment on above: Performed By: #### C BC ####[facility] [address] [place] [id number]. Malia Bustamante RBC 3.16 106/ul Critically low 4.20-5.40 [facility] Comment on above: Performed By: #### C BC ####[facility] [address] [place] [id number]. Malia Bustamante WBC 5.6 103/ul Normal 4.0-11.0 [facility] Comment on above: Performed By: #### C BC ####[facility] [address] [place] [id number]. Malia Bustamante PROF CHEM 8 (BAS METB)on Anion gap [Moles/Vol] 16.3 mmol/L Normal [facility] Comment on above: Performed By: #### B MP ####[facility] [address] [place] [address]Dr. Malia Robby Calcium [Mass/Vol] 11.1 mg/dL Critically high 8.5-10.1 [facility] Comment on above: Performed By: #### B MP ####[facility] [address] [place] [address]Dr. Malia Bustamante Chloride [Moles/Vol] 113 mmol/L Critically high 98-107 [facility] Comment on above: Performed By: #### B MP ####[facility] [address] [place] [address]Dr. Malia Bustamante CO2 [Moles/Vol] 22.9 mmol/L Normal 21.0-32.0 [facility] Comment on above: Performed By: #### B MP ####[facility] [address] [place] [address]Dr. Malia Bustamante Creatinine [Mass/Vol] 1.84 mg/dL Critically high 0.55-1.02 [facility] Comment on above: Performed By: #### B MP ####[facility] [address] [place] [address]Dr. Malia Bustamante EGFR-AF DJIBOUTIAN 32 mL/min/1.73m2 Critically low >=60 [facility] Comment on above: Performed By: #### B MP ####[facility] [address] [place] [id number]. Malia Bustamante EGFR-NON AF DJIBOUTIAN 27 mL/min/1.73m2 Critically low >=60 [facility] Comment on above: Performed By: #### B MP ####[facility] [address] [place] [address]Dr. Malia Bustamante Glucose [Mass/Vol] 97 mg/dL Normal 74-106 [facility] Comment on above: Performed By: #### B MP ####[facility] [address] [place], [place] [address]Aj. Malia Bustamante Potassium [Moles/Vol] 5.2 mmol/L Critically high 3.5-5.1 [facility] Comment on above: Performed By: #### B MP ####[facility] [address] [place], [place] [address]Ob. Malia Bustamante Sodium [Moles/Vol] 147 mmol/L Critically high 136-145 [facility] Comment on above: Performed By: #### B MP ####[facility] [address] [place], [place] [address]Pb. Malia Bustamante Urea nitrogen [Mass/Vol] 42.0 mg/dL Critically high 7.0-18.0 [facility] Comment on above: Performed By: #### B MP ####[facility] [address] [place], [place] [address]Wo. Malia Bustamante Urea nitrogen/Creatinine [Mass ratio] 22.8 mg/mg Normal [facility] Comment on above: Performed By: #### B MP ####[facility] [address] [place], [place] [address]Lt. Malia Bustamante US KIDNEYS BLADDERon 12-08- 023 US KIDNEYS BLADDER US KIDNEYS BLADDER EXAM DATE: 12/08/2022 6:55 AM MST COMPARISON: None available. INDICATION: Chronic kidney disease. TECHNIQUE: Real-time ultrasound scanning of the kidneys and bladder was performed by the biomass power plant manager. Neighborhood Aide static images are submitted for review. FINDINGS: [...] PAMELA PECK Date: 2022-12-08 13:20 Normal [facility] CULTURE URINEon 12-01-2022 CULTURE URINE Culture Observations : LIGHT GROWTH OF MIXED GENITAL QUINTIN. NO POTENTIAL PATHOGENS SEEN. Normal [facility] Comment on above: Performed By: #### U RCX ####[facility] [address] [place] [address]Dr. Malia Bustamante MICROALBUMIN, RAND URon 03-0 mALB 1.7 mg/L Normal <=30.0 [facility] Comment on above: Performed By: #### M ALBR ####[facility] Ztsq[address] [place], [place] [address]Dr. Malia Bustamante UA RANDOM W/MICROSCOPICon BACTERIA NONE SEEN Normal NONE SEEN [facility] Comment on above: Performed By: #### U AMIC ####[facility] [address] [place], [place] [address]Dr. Malia Bustamante Bilirubin Ql (U) Negative Normal NEGATIVE [facility] Comment on above: Performed By: #### U AMIC ####[facility] Mtvbpur[address] [place], [place] [address]Dr. Malia Bustamante CAST NONE SEEN Normal NONE SEEN [facility] Comment on above: Performed By: #### U AMIC ####[facility] Q[address] [place], [place] [address]Dr. Malia Bustamante Clarity (U) CLEAR Normal CLEAR [facility] Comment on above: Performed By: #### U AMIC ####[facility] Iz[address] [place], [place] [address]Dr. Malia Bustamante Color (U) LT. YELLOW Normal YELLOW [facility] Comment on above: Performed By: #### U AMIC ####[facility] [address] [place], [place] [address]Dr. Malia Bustamante Crystals LM Nom (Urine sed) NONE SEEN Normal NONE SEEN [facility] Comment on above: Performed By: #### U AMIC ####[facility] [address] [place], [place] [address]Dr. Malia Bustmaante Epithelial cells LM Ql (Urine sed) FEW Abnormal NONE SEEN /RARE [facility] Comment on above: Performed By: #### U AMIC ####[facility] [address] [place] [address]Dr. Flakitatahir Robby Glucose Ql (U) Negative Normal NEGATIVE [facility] Comment on above: Performed By: #### U AMIC ####[facility] [address] [address]Dr. Flaiktatahir Robby Hemoglobin Ql (U) Negative Normal NEGATIVE [facility] Comment on above: Performed By: #### U AMIC ####[facility] [address] [address]Dr. Malia Bustamante Ketones Ql (U) Negative Normal NEGATIVE [facility] Comment on above: Performed By: #### U AMIC ####[facility] [address] [place] [address]Dr. Malia Bustamante LEUKOCYTES Negative Normal NEGATIVE [facility] Comment on above: Performed By: #### U AMIC ####[facility] [address] [place] [address]Dr. Malia Bustamante MUCOUS NONE SEEN Normal NONE SEEN [facility] Comment on above: Performed By: #### U AMIC ####[facility] [address] [address]Dr. Malia Bustamante Nitrite Ql (U) Negative Normal NEGATIVE [facility] Comment on above: Performed By: #### U AMIC ####[facility] [address] [address]Dr. Malia Bustamante pH (U) 5.5 [pH] Normal 5-9 [facility] Comment on above: Performed By: #### U AMIC ####[facility] [address] [place] [address]Dr. Malia Bustamante RBC NONE SEEN Abnormal 0-2 [facility] Comment on above: Performed By: #### U AMIC ####[facility] [address] [place] [address]Dr. Malia Bustamante SPEC GRAVITY 1.020 Normal 1.005-<=1.025 The [facility] Comment on above: Performed By: #### U AMIC ####[facility] [address] [place] [id number]. Malia Bustamante UA PROTEIN Negative Normal NEGATIVE/ TRACE [facility] Comment on above: Performed By: #### U AMIC ####[facility] [address] [place], [place] [address]Jj. Malia Bustamante Urobilinogen Qn (U) 0.2 {Álvaro'U}/dL Normal 0.2 - 1. 0 [facility] Comment on above: Performed By: #### U AMIC ####[facility] [address] [place] [id number]. Malia Bustamante WBC NONE SEEN Normal NONE SEEN [facility] Comment on above: Performed By: #### U AMIC ####[facility] [address] [place] [place] [id number]. Malia Bustamante ECHOCARDIO M/2D COMPLETEon 0 11-01-2022 ECHOCARDIO M/2D COMPLETE Patient: LIZABETH MONTANEZ Exam Date: 11/01/2022 : 1945 Gender:F Ordering : DR ISAK RAYO . Admission #: [id number] Family : Order #: [id number] CLICK HERE TO VIEW EXAM ECHOCARDIOGRAM REPORT [...] M.D. on 11/02/2022 at 11:25 Normal [facility] INSULINon 10-30-2022 Insulin 11.5 uIU/mL Normal 2.6-24.9 [facility] Comment on above: Performed By: #### I NSULIN #### [facility] [address] [place] [address] Dr. Malia Bustamante BNPon 10-29-2022 Natriuretic peptide B (Bld) [Mass/Vol] 4315.0 pg/mL Critically high <=1,800.0 [facility] Comment on above: Performed By: #### L IPID, CMP, TSH, T7, BNP #### [facility] [address] [place] [address] Dr. Malia Bustamante CBC AUTO DIFFon 10-29-2022 BASO # 0.0 103/ul Normal 0.0-0.1 [facility] Comment on above: Performed By: #### C BC #### [facility] [address] [place] [address] Dr. Malia Bustamante Basophils/100 WBC (Bld) 0.6 % Normal 0.2-2.0 [facility] Comment on above: Performed By: #### C BC #### [facility] [address] [place] [address] Dr. Malia Bustamante EO # 0.1 103/ul Normal 0.0-0.7 [facility] Comment on above: Performed By: #### C BC #### [facility] [address] [place] [address] Dr. Malia Bustamante Eosinophils/100 WBC (Bld) 1.6 % Normal 0.9-7.0 [facility] Comment on above: Performed By: #### C BC #### [facility] [address] [place] [address] Dr. Malia Bustamante Erythrocyte distribution width (RBC) [Ratio] 13.1 % Normal 11.0-15.0 [facility] Comment on above: Performed By: #### C BC #### [facility] [address] [place] [address] Dr. Malia Bustamante Hematocrit (Bld) [Volume fraction] 31.3 % Critically low 36.0-48.0 [facility] Comment on above: Performed By: #### C BC #### [facility] [address] [place] [address] Dr. Malia Bustamante Hemoglobin (Bld) [Mass/Vol] 10.3 g/dL Critically low 12.0-16.0 [facility] Comment on above: Performed By: #### C BC #### [facility] [address] [place] [address] Dr. Malia Bustamante IG # 0.03 10e3/ul Normal 0.00-0.03 [facility] Comment on above: Performed By: #### C BC #### [facility] [address] [place] [address] Dr. Malia Bustamante IG % 0.5 % Normal 0.0-0.5 [facility] Comment on above: Performed By: #### C BC #### [facility] [address] [place] [address] Dr. Malia Bustamante LYMPH # 0.7 103/ul Critically low 1.2-3.8 [facility] Comment on above: Performed By: #### C BC #### [facility] [address] [place] [address] Dr. Malia Bustamante Lymphocytes/100 WBC (Bld) 10.1 % Critically low 20.5-60.0 [facility] Comment on above: Performed By: #### C BC #### [facility] [address] [place] [address] Dr. Malia Bustamante MANUAL DIFF REQ NO Normal [facility] Comment on above: Performed By: #### C BC #### [facility] [address] [place] [address] Dr. Malia Bustamante MCH (RBC) [Entitic mass] 32.0 pg Normal 26.7-34.0 [facility] Comment on above: Performed By: #### C BC #### [facility] [address] [place] [address] Dr. Malia Bustamante MCHC (RBC) [Mass/Vol] 32.9 g/dL Normal 29.9-35.2 [facility] Comment on above: Performed By: #### C BC #### [facility] [address] [place] [address] Dr. Malia Bustamante MCV (RBC) [Entitic vol] 97.2 fL Normal 81.0-99.0 [facility] Comment on above: Performed By: #### C BC #### [facility] [address] [place] [address] Dr. Malia Bustamante MONO # 0.5 103/ul Normal 0.3-0.8 [facility] Comment on above: Performed By: #### C BC #### [facility] [address] [place] [address] Dr. Malia Bustamante Monocytes/100 WBC (Bld) 7.3 % Normal 1.7-12.0 [facility] Comment on above: Performed By: #### C BC #### [facility] [address] [place] [address] Dr. Malia Bustamante NEUT # 5.2 103/ul Normal 1.4-6.5 [facility] Comment on above: Performed By: #### C BC #### [facility] [address] [place] [address] Dr. Malia Bustamante Neutrophils/100 WBC (Bld) 79.9 % Critically high 43.0-75.0 [facility] Comment on above: Performed By: #### C BC #### [facility] [address] [place] [address] Dr. Malia Bustamante Platelet mean volume (Bld) [Entitic vol] 11.4 fL Normal 9.5-13.5 [facility] Comment on above: Performed By: #### C BC #### [facility] [address] [place] [address] Dr. Malia Bustamante PLT 198 103/ul Normal 150-450 [facility] Comment on above: Performed By: #### C BC #### [facility] [address] [place] [address] Dr. Malia Bustamante RBC 3.22 106/ul Critically low 4.20-5.40 [facility] Comment on above: Performed By: #### C BC #### [facility] [address] [place] [address] Dr. Malia Bustamante WBC 6.4 103/ul Normal 4.0-11.0 [facility] Comment on above: Performed By: #### C BC #### [facility] [address] [place] [address] Dr. Malia Bustamante FREE THYROXINE INDEX T7on FTI 3.26 Normal 1.30-4.50 [facility] Comment on above: Performed By: #### L IPID, CMP, TSH, T7, BNP #### [facility] [address] [place] [address] Dr. Malia Bustamante T3U 35.0 % Normal 30.0-39.0 [facility] Comment on above: Performed By: #### L IPID, CMP, TSH, T7, BNP #### [facility] [address] [place] [address] Dr. Malia Bustamante T4 [Mass/Vol] 9.30 ug/dL Normal 4.80-13.90 [facility] Comment on above: Performed By: #### L IPID, CMP, TSH, T7, BNP #### [facility] [address] [place] [address] Dr. Malia Bustamante GLYCOHEMOGLOBIN A1Con 2022 ADA RECOMMENDATION SEE BELOW Normal [facility] Comment on above: Result Comment: ADA RECOMMENDED LIMIT 4.0 - 6.0 ADA THERAPEUTIC TARGET < 7.0 ACTION SUGGESTED > 7.0 Performed By: #### A 1C #### [facility] [address] [address] [address] Malia Bustamante Glucose [Mass/Vol] 97 mg/dL Normal [facility] Comment on above: Performed By: #### A 1C #### [facility] [address] [address] [address] Malia Bustamante HbA1c (Bld) [Mass fraction] 5.0 % Normal 4.5-6.2 [facility] Comment on above: Performed By: #### A 1C #### [facility] [address] [address] [address] Malia Bustamante IRONon 10-29-2022 Iron [Mass/Vol] 78.0 ug/dL Normal 50.0-170.0 [facility] Comment on above: Performed By: #### I MIRZA VITAD ####[facility] [address] [place] [address]Dr. Malia Bustamante LIPID PROFILEon 10-29-2022 CHOL-HDL RATIO NORM SEE BELOW Normal [facility] Comment on above: Result Comment: 3.3 - 4.4 LOW RISK 4.4 - 7.1 AVERAGE RISK 7.1 - 11.0 MODERATE RISK >11.0 HIGH RISK Performed By: #### L IPID, CMP, TSH, T7, BNP #### [facility] [address] [address] [address] Malia Bustamante Cholesterol [Mass/Vol] 131 mg/dL Normal <=200 [facility] Comment on above: Performed By: #### L IPID, CMP, TSH, T7, BNP #### [facility] [address] [address] [address] Malia Bustamante Cholesterol in HDL [Mass/Vol] 51 mg/dL Normal 40-60 [facility] Comment on above: Performed By: #### L IPID, CMP, TSH, T7, BNP #### [facility] [address] [address] [address] Malia Bustamante Cholesterol in LDL [Mass/Vol] 59.0 mg/dL Normal [facility] Comment on above: Performed By: #### L IPID, CMP, TSH, T7, BNP #### [facility] [address] [address] [address] Malia Bustamante Cholesterol.total/C holesterol in HDL [Mass ratio] 2.6 {ratio} Normal [facility] Comment on above: Performed By: #### L IPID, CMP, TSH, T7, BNP #### [facility] [address] [address] [address] Malia Bustamante HDL NORMAL > or = 60 mg/dl - LO W CARDIOVASCULAR RISK <40 mg/dl - HIGH CARDIOVASCULAR RISK Normal [facility] Comment on above: Performed By: #### L IPID, CMP, TSH, T7, BNP #### [facility] [address] [address] [address] Malia Bustamante LDL CALC NORMAL SEE BELOW Normal [facility] Comment on above: Result Comment: <100 mg/dl OPTIMAL 100 - 129 mg/dl NEAR OR ABOVE OPTIMAL 130 - 159 mg/dl BORDERLINE HIGH 160 - 189 mg/dl HIGH >190 mg/dl VERY HIGH Performed By: #### L IPID, CMP, TSH, T7, BNP #### [facility] [address] [address] [address] Malia Bustamante Triglyceride [Mass/Vol] 105 mg/dL Normal <=150 [facility] Comment on above: Performed By: #### L IPID, CMP, TSH, T7, BNP #### [facility] [address] [address] [address] Malia Bustamante VLDL CALC 21.0 mg/dL Normal [facility] Comment on above: Performed By: #### L IPID, CMP, TSH, T7, BNP #### [facility] [address] [address] [address] Malia Bustamante PROF 14(COMP METB)on 023 Albumin [Mass/Vol] 3.8 g/dL Normal 3.4-5.0 [facility] Comment on above: Performed By: #### L IPID, CMP, TSH, T7, BNP #### [facility] [address] [place] [address] Dr. Malia Bustamante Albumin/Globulin [Mass ratio] 1.2 {ratio} Normal [facility] Comment on above: Performed By: #### L IPID, CMP, TSH, T7, BNP #### [facility] [address] [place] [address] Dr. Malia Bustamante ALP [Catalytic activity/Vol] 53 U/L Normal 46-116 [facility] Comment on above: Performed By: #### L IPID, CMP, TSH, T7, BNP #### [facility] [address] [place] [address] Dr. Malia Bustamante ALT [Catalytic activity/Vol] 16 U/L Normal 14-59 [facility] Comment on above: Performed By: #### L IPID, CMP, TSH, T7, BNP #### [facility] [address] [place] [address] Dr. Malia Bustamante Anion gap [Moles/Vol] 15.0 mmol/L Normal [facility] Comment on above: Performed By: #### L IPID, CMP, TSH, T7, BNP #### [facility] [address] [place] [address] Dr. Malia Bustamante AST [Catalytic activity/Vol] 18 U/L Normal 15-37 [facility] Comment on above: Performed By: #### L IPID, CMP, TSH, T7, BNP #### [facility] [address] [place] [address] Dr. Malia Bustamante Bilirubin [Mass/Vol] 0.4 mg/dL Normal 0.2-1.0 [facility] Comment on above: Performed By: #### L IPID, CMP, TSH, T7, BNP #### [facility] [address] [place] [address] Dr. Malia Bustamante Calcium [Mass/Vol] 10.3 mg/dL Critically high 8.5-10.1 T [facility] Comment on above: Performed By: #### L IPID, CMP, TSH, T7, BNP #### [facility] [address] [place] [address] Dr. Malia Bustamante Chloride [Moles/Vol] 110 mmol/L Critically high 98-107 [facility] Comment on above: Performed By: #### L IPID, CMP, TSH, T7, BNP #### [facility] [address] [place] [address] Dr. Malia Bustamante CO2 [Moles/Vol] 21.6 mmol/L Normal 21.0-32.0 [facility] Comment on above: Performed By: #### L IPID, CMP, TSH, T7, BNP #### [facility] [address] [place] [address] Dr. Malia Bustamante Creatinine [Mass/Vol] 1.53 mg/dL Critically high 0.55-1.02 [facility] Comment on above: Performed By: #### L IPID, CMP, TSH, T7, BNP #### [facility] [address] [place] [address] Dr. Maila Bustamante EGFR-AF DJIBOUTIAN 40 mL/min/1.73m2 Critically low >=60 [facility] Comment on above: Performed By: #### L IPID, CMP, TSH, T7, BNP #### [facility] [address] [place] [address] Dr. Malia Bustamante EGFR-NON AF DJIBOUTIAN 33 mL/min/1.73m2 Critically low >=60 [facility] Comment on above: Performed By: #### L IPID, CMP, TSH, T7, BNP #### [facility] [address] [place] [address] Dr. Malia Bustamante Globulin (S) [Mass/Vol] 3.2 g/dL Normal [facility] Comment on above: Performed By: #### L IPID, CMP, TSH, T7, BNP #### [facility] [address] [place] [address] Dr. Malia Bustamante Glucose [Mass/Vol] 106 mg/dL Normal 74-106 [facility] Comment on above: Performed By: #### L IPID, CMP, TSH, T7, BNP #### [facility] [address] [address] [address] Malia Bustamante Potassium [Moles/Vol] 4.6 mmol/L Normal 3.5-5.1 [facility] Comment on above: Performed By: #### L IPID, CMP, TSH, T7, BNP #### [facility] [address] [place] [address] Dr. Malia Bustamante Protein [Mass/Vol] 7.0 g/dL Normal 6.4-8.2 [facility] Comment on above: Performed By: #### L IPID, CMP, TSH, T7, BNP #### [facility] [address] [place] [address] Dr. Malia Bustamante Sodium [Moles/Vol] 142 mmol/L Normal 136-145 [facility] Comment on above: Performed By: #### L IPID, CMP, TSH, T7, BNP #### [facility] [address] [place] [address] Dr. Malia Bustamante Urea nitrogen [Mass/Vol] 38.0 mg/dL Critically high 7.0-18.0 [facility] Comment on above: Performed By: #### L IPID, CMP, TSH, T7, BNP #### [facility] [address] [place] [address] Dr. Malia Bustamante Urea nitrogen/Creatinine [Mass ratio] 24.8 mg/mg Normal [facility] Comment on above: Performed By: #### L IPID, CMP, TSH, T7, BNP #### [facility] [address] [place] [address] Dr. Malia Bustamante TSHon 10-29-2022 TSH 2.124 uIU/mL Normal 0.358-3.740 The [facility] Comment on above: Performed By: #### L IPID, CMP, TSH, T7, BNP #### [facility] [address] [place] [address] Dr. Malia Bustamante VITAMIN D 25 OHon 10-29-2022 VIT D 25-OH 69.6 ng/mL Normal [facility] Comment on above: Performed By: #### I MIRZA, VITAD ####[facility] [address] [place] [address]Dr. Malia Bustamante VIT D RANGES SEE BELOW Normal [facility] Comment on above: Result Comment: <20 ng/mL Vit D deficient 20 - <30 ng/mL Vit D insufficient 30 - 100 ng/mL Vit D sufficient >100 ng/mL Potential Toxicity Performed By: #### I MIRZA VITAD ####[facility] [address] [place] [address]Dr. Malia Bustamante CALCIUMon 09-05-2022 Calcium [Mass/Vol] 10.5 mg/dL Critically high 8.5-10.1 [facility] Comment on above: Performed By: #### C Marbella, CREA ####[facility] [address] [place], [place] [address]Dr. Malia Bustamante CREATININEon 09-05-2022 Creatinine [Mass/Vol] 1.60 mg/dL Critically high 0.55-1.02 [facility] Comment on above: Performed By: #### C Marbella, CREA ####[facility] [address] [place], [place] [address]Dr. Malia Bustamante EGFR-AF DJIBOUTIAN 38 mL/min/1.73m2 Critically low >=60 [facility] Comment on above: Performed By: #### C A, CREA ####[facility] [address] [place] [address]Dr. Malia Bustamante EGFR-NON AF DJIBOUTIAN 31 mL/min/1.73m2 Critically low >=60 [facility] Comment on above: Performed By: #### C A, CREA ####[facility] [address] [place], [place] [address]Dr. Malia Bustamante MG MAMM SCREEN 3D JUAN JOSE CADon 05-25-2022 MG MAMM SCREEN 3D JUAN JOSE CAD Patient: LIZABETH MONTANEZ Exam Date: 05/25/2022 : 1945 Gender:F Ordering : DR ISAK RAYO . Admission #: [id number] Family : Order #: [id number] CLICK HERE TO VIEW EXAM RADIOLOGY REPORT PROCEDURE: MAMMOGRAM SCREENING 3D BILATERAL CAD COMPARISON: MG MAMM SCREEN JUAN JOSE W CAD, 11/13/2019. MG MAMM SCREEN JUAN JOSE W CAD, 10/28/2018. MG MAMM JUAN JOSE SCRN W CAD DIG, 06/26/2013. MG MAMM SCREEN 3D JUAN JOSE CAD, 04/28/2021. INDICATIONS: Screening mammography Calculator Name NCI Breast Cancer Risk Assessment Tool 5 Year Breast Cancer Risk 2.00% Lifetime Breast Cancer Risk 4.00% Personal Breast Cancer No Personal Ovarian Cancer No Treatments None Family Cancers Grandmother-paternal with breast cancer at age 60. LOCATION: [facility] BREAST COMPOSITION: Heterogeneously dense,which may obscure small [...] LUMP SHOULD BE BIOPSIED. Dictated by: Shila Falcon M.D. on 05/25/2022 at 14:13 Approved by: Shila Falcon M.D. on 05/25/2022 at 14:19 [facility] Encounters Encounter Date Encounter Type Care Provider Facility Start: 05-15-2024 End: 05-15-2024 ambulatory YENI SANTIAGO [facility] Start: 03-12-2024 End: 03-12-2024 ambulatory [facility] Start: 03-02-2024 End: 03-02-2024 ambulatory [facility] Start: 02-06-2024 ambulatory [facility] Start: 01-24-2024 Evaluation and manag ement of inpatient [facility] Start: 01-24-2024 End: 01-30-2024 Evaluation and management of inpatient [facility] Start: 01-16-2024 End: 01-16-2024 ambulatory [facility] Start: 01-16-2024 Encounter for preprocedural laboratory examination [facility] Start: 01-07-2024 End: 01-07-2024 [facility]: 11-28-2023 End: 11-28-2023 ambulatory [facility] Start: 11-28-2023 End: 11-28-2023 ambulatory [facility] Start: 09-13-2023 End: 09-13-2023 ambulatory LILIA SERRATO [facility] Start: 08-29-2023 End: 08-29-2023 ambulatory [facility] Start: 07-25-2023 ambulatory [facility] Start: 07-12-2023 ambulatory [facility] Start: 07-12-2023 End: 07-16-2023 Evaluation and management of inpatient [facility] Start: 06-27-2023 ambulatory [facility] Start: 06-27-2023 ambulatory [facility] Start: 02-27-[address] ISAK RAYO . Facili ty:[facility] Start: 12-28-2022 Encounter for other preprocedural examination YENI SANTIAGO [facility] Start: 12-26-2022 End: 12-27-2022 ambulatory YENI SANTIAGO Facility:[facility] Start: 12-26-2022 End: 12-27-2022 Encounter for other preprocedural examination YENI SANTIAGO Facility:[facility] Start: 12-08-2022 End: 12-09-[address] ISAK RAYO . Facility:[facility] Start: 12-01-2022 End: 12-02-[address] ISAK RAYO . Facility:[facility] Start: 11-07-[address] ISAK Choudhury Facili ty:[facility] Start: 11-01-2022 End: 11-02-[address] ISAK RAYO . Facility:[facility] Start: 10-29-2022 End: 10-30-[address] ISAK RAYO . Facility:[facility] Start: 09-05-2022 End: 09-05-[address] ISAK RAYO . Facility:[facility] Start: 05-25-2022 End: 05-26-[address] ISAK RAYO . Facility:[facility] Start: 10-28-2017 [facility]ulatory [facility] Start: 06-06-2017 End: 06-07-2017 Ambulatory DEFAULT PHYSICIAN Facility:[facility] Procedures Date Procedure Procedure Detail Performing Clinician Start: 05-15-2024 Follow-up visit Follow-up YENI SANTIAGO Payers Date Payer Category Payer Medicare [id number] 1958 Self-pay 1945 Unknown [id number] 2.16.84 [id number] 1945 Unknown [id number] 2.16.84 [id number] 1945 Unknown [id number] 2.16.84 [id number] 1945 Unknown [id number] 2.16.84 [id number] 1945 Unknown [id number] 2.16.84 [id number] 1945 Unknown [id number] 2.16.84 [id number] 1945 Unknown [id number] 2.16.84 [id number] 1945 Unknown [id number] 2.16.84 [id number] 1945 Unknown [id number] 2.16.84 [id number] Unknown Clinical Notes 06-26-2023 to 05-15-2024 Note Date & Type Note Facility 05-15-2024 Note Follow up from getting a echo [facility] 05-15-2024 Note [facility] CARDIOLOGY PROGR ESS NOTE HPI Patientis a 77 yo female with a past medical history including chronic afib, hypertension, and LVH. Cardiology clinic for routine follow-up post surgery. Patient states that she is doing well. No cardiac complaints. No chest pain or shortness of breath. No edema or orthopnea. No PND. She had a TTE perfoemd which showed moderate MR. DENISE previously demonstrated mild to moderate MR and mild AI. No complaints or concerns per patient. She feels well. She is taking medications as prescribed. No bleeding issues. Review of Systems 10 point ROS is performed and is negative unless otherwise specified in HPI Visit Vitals BP 130/86 (BP Location: Left arm, Patient Position: Sitting, BP Cuff Size: Adult) Pulse 72 Resp 16 Ht 1.651 m (5' 5 ) Wt 93 kg (205 lb) SpO2 98% BMI 34.11 kg/m??? OB Status Postmenopausal Smoking Status Never BSA 2.07 m??? Medications: Current Outpatient Medications on File Prior to Visit Medication Sig Dispense Refill allopurinol (Zyloprim) 100 mg tablet 1 (one) time each day at the same time. apixaban (Eliquis) 2.5 mg tablet every 12 (twelve) hours. bisoprolol (Zebeta) 5 mg tablet Take 1 tablet (5 mg) by mouth in the morning. Do not start before January 29, 2024. (Patient taking differently: Take 1 mg by mouth in the morning.) 60 tablet 2 Entresto 24-26 mg tablet Take 1 tablet by mouth in the morning and at bedtime. furosemide (Lasix) 40 mg tablet Take 1 tablet (40 mg) by mouth every other day. Do not start before January 29, 2024. 30 tablet 3 magnesium oxide (Mag-Ox) 400 mg (241.3 mg magnesium) tablet Take 1 tablet (400 mg) by mouth in the morning. Do not start before January 29, 2024. 60 tablet 2 apixaban (Eliquis) 2.5 mg tablet Take 1 tablet (2.5 mg) by mouth in the morning and at bedtime for 191 doses. 60 tablet 3 [DISCONTINUED] ascorbic acid (Vitamin C) 500 mg tablet Take 500 mg by mouth in the morning. [DISCONTINUED] cholecalciferol (Vitamin D3) 25 MCG (1000 UT) capsule Take 25 mcg by mouth in the morning. [DISCONTINUED] ferrous sulfate 325 (65 Fe) MG tablet Take 65 mg by mouth in the morning and at bedtime. [DISCONTINUED] multivitamin tablet Take 1 tablet by mouth in the morning. No current facility-administered medications on file prior [...] values have been reviewed Patient states Dr. Rayo has been monitoring her labs annually and at last check her renal function was improved Assessment/Plan: Chronic atrial fibrillation (CMS/HCC) On Eliquis for stroke prophylaxis Heart rate well controlled continue bisprolol and diltiazem Continue current medication regimen Hypertensive disorder Continue current medication regimen, Bp well controlled at home Pulmonary hypertension (CMS/HCC) RVSP 76 mm Hg on echo RHC performed and RVSp was 38, mean PA was 25, and PCWP was 16. Palpitations Admits occasional palpitations but states is no worse than usual continue all medications mod MR Continue current medical therapy Repeat echo in 1 year, or sooner as needed Plan of care discussed with patient. All questions were answered. Patient voices understanding and is agreeable with current plan. Patient was educated on red flag symptoms. Strict return precautions were provided. Patient verbalizes understanding Yeni Santiago MD [facility] 03-12-2024 Note Orthopedic Surgery Subjective 01/24/2024 Total Knee Arthroplasty - Right 03/12/24 Lizabeth Montanez is a 78 y.o. F presenting today for 6 week follow-up of R primary TKA. Overall the patient reports doing very well and has pain that she rates as a 1/10 at the worse and primary occurs around the patella. She is no longer taking any pain medications. Pain is worse with activity and relieved with rest, elevation, and ice. She mentioned swelling at a previous appointment but no longer believes this to be an issue for her. She has been using a cane at home and a walker when she leaves the house, overall ambulating well. She has continued working with PT and reports good progress. She continues to take her Eliquis. No concerns at today's appointment. Patient History Past Surgical History: Procedure Laterality Date CARDIOVERSION SECTION, LOW TRANSVERSE X3 KNEE ARTHROPLASTY Left TONSILLECTOMY Past Medical History: Diagnosis Date Atrial fibrillation (CMS/HCC) COVID-19 Hypertension Left ventricular hypertrophy Nonrheumatic mitral valve regurgitation OA (osteoarthritis) Obesity Osteoarthritis of knee Palpitations PONV (postoperative nausea and vomiting) Pulmonary hypertension (CMS/HCC) Right knee pain Objective Overall patient is well-appearing and in no acute distress. RLE: - Knee incision clean, dry, and intact. No drainage or erythema. Mild swelling of R knee and lower extremity. No calf pain. - No tenderness to palpation. - Reasonable post-surgical ROM with 0-110 degrees of motion. - Knee joint stable to both lateral and medial stress - Strength 5/5 for both flexion and extension - Sensation grossly intact in the sural, saphenous, and superficial peroneal nerve distributions - Lower extremity well perfused X-rays obtained today demonstrate well-fixed prosthesis with no changes from prior x-ray. Assessment/Plan Lizabeth Montanez is a 78 y.o. year old female s/p Total Knee Arthroplasty - Right (01/24/2024) overall doing well and reports no concerns today. - No longer need to attend PT sessions, continue exercises at home. - Continue using walker outside of house but begin transitioning from walker to cane - Can return to driving - Continue resting and icing as needed - Patient reminded she cannot undergo any dental work over the next 6 weeks and will need to receive antibiotics prior to any dental work received after these next 6 weeks. - RTC in [address] 03/12/24 10:13 AM As the teaching physician, I have personally performed or re-performed the history of present illness, physical exam and medical decision-making activities of the encounter and verified the medical student's documentation. I made pertinent changes as necessary to ensure accurate documentation. Additional Comments: none Mynor Gallegos [facility] 02-06-2024 Note Orthopedic Surgery Subjective 01/24/2024 Total Knee Arthroplasty - Right 02/06/24 Doing well postoperatively, no complaints Denies any fevers, chills, chest pain, SOB, elevated blood pressure, incisional issues, calf pain. Has been doing home therapy and using the walke without difficulty, is back on her home eliquis dose. Patient History Past Surgical History: Procedure Laterality Date CARDIOVERSION SECTION, LOW TRANSVERSE X3 KNEE ARTHROPLASTY Left TONSILLECTOMY Past Medical History: Diagnosis Date Atrial fibrillation (CMS/HCC) COVID-19 Hypertension Left ventricular hypertrophy Nonrheumatic mitral valve regurgitation OA (osteoarthritis) Obesity Osteoarthritis of knee Palpitations PONV (postoperative nausea and vomiting) Pulmonary hypertension (CMS/HCC) Right knee pain Objective Exam: - Dressing removed, Incision clean, dry, and intact. No drainage or erythema - Reasonable post-surgical ROM from 0-90, swelling, and tenderness. No groin tenderness nor calf tenderness - Sensation grossly intact distally - Brisk capillary refill Imaging: No imaging to review Assessment/Plan Lizabeth Montanez is a 78 y.o. year old female s/p Total Knee Arthroplasty - Right (01/24/2024) -Patient doing well postop, dressing removed and steri strips left in place -Pain medication sent today per patient request, sent short course of 20 tabs of roxicodone 5 mg to the pharmacy -Continue home Eliquis for anticoagulation, also educated to continue with CECE wraps for edema control and use of the polar care to reduce swelling -Educated patient that they should not drive until the 6 weeks postoperative any -Continue WBAT with use of the walker, continue with physical therapy, new Rx provided for outpatient PT -RTC in 4 weeks and will obtain new XR of the R knee at that time The patient understands and agrees to the management plan, and all patient questions have been answered to his/her satisfaction. Rsulan Ortez MD Orthopaedic Surgery, PGY-V 02/06/2024 By using the attestations below, the signing [...] be an additional personal documentation from me. [facility] 01-30-2024 Note Physical Therapy Physical Therapy Treatment Patient Name: Lizabeth Montanez : 1945 Today's Date: 01/30/2024 Patient Active Problem List Diagnosis Chronic atrial fibrillation (CMS/HCC) Disorder of cardiovascular system Left ventricular hypertrophy Obesity Palpitations Pulmonary hypertension (CMS/HCC) Warfarin therapy started Nonrheumatic mitral valve regurgitation Abnormal stress test Osteoarthritis of knee S/P total knee arthroplasty, left Hx of total knee arthroplasty, left COVID-19 Right knee pain Arthritis of right knee Hyponatremia Hypomagnesemia Stage 4 chronic kidney disease (CMS/HCC) Objective General Visit Information: PT Last Visit PT Received On: 01/30/24 Response to Previous Treatment: Patient with no complaints from previous session. General Family/Caregiver Present: Yes (son and daughter) Subjective: I think I'm good to go Pt and RN agreed to therapy. Pt was seated in bedside chair upon arrival, returned to chair after therapy. Needs and call light placed nearby. Pt is pleasant and cooperative. Vision - Basic Vision - Basic Assessment Current Vision: Wears glasses all the time Activity Tolerance Activity Tolerance Ambulation comments: Pt ambulated from chair into the hallway and back to bedside chair with RW and CGA. Pt completed 5 steps x2 with use of both rails. Endurance: Stage III Stage II (METs 1.4-2.0) - Sittin-20 mins Activity Tolerance Comments: No complaints of SOB or dizziness. Precautions Precautions LE Weight Bearing Status: Right, WBAT Medical Precautions: telemetry, incisional wound vac Post-Surgical Precautions: Right TKA Pain Pain Assessment Pain Assessment: No/denies pain Pain Score: 0 - No pain Cognition Cognition Overall Cognitive Status: Within Functional Limits Arousal/Alertness: Appropriate responses to stimuli Orientation Level: Oriented X4 Following Commands: Follows all commands and directions without difficulty Safety Judgment: Good awareness of safety precautions Awareness of Errors: Good awareness of errors made Deficits: Fully aware of deficits Attention Span: Appears intact Memory: Appears intact Problem Solving: Assistance required to generate solutions, Assistance required to implement solutions Communication: Intact Cognition Comments: Pt. is cooperative and motivated to work with PT. General Assessment General Assessment Hearing: WNL Skin Integrity: incision covered by bandage. Edema: edema RLE Static Sitting Balance Static Sitting Balance Static Sitting-Balance Support: No upper extremity supported, Feet unsupported Static Sitting-Level of Assistance: Independent Dynamic Sitting Balance Dynamic Sitting Balance Dynamic Sitting-Balance Support: Feet unsupported, Unilateral upper extremity supported Dynamic Sitting-Balance: Reaching for objects Dynamic Sitting Balance-Level of Assistance: Independent Static Standing Balance Static Standing Balance Static Standing-Balance Support: With device, Right upper extremity supported, Left upper extremity supported (RW) Static Standing-Level of Assistance: Contact guard Dynamic Standing Balance Dynamic Standing Balance Dynamic Standing-Balance Support: Right upper extremity supported, Left upper extremity supported Dynamic Standing-Balance: (transition from static to gait) Dynamic Standing Balance-Level of Assistance: Contact guard Treatment: Ambulation Ambulation: Yes Ambulation 1 Surface 1: Level tile Device 1: Rolling walker Assistance 1: Contact guard Quality of Gait 1: decreased gait speed, step to gait pattern, decreased step height Comments/Distance (ft) 1: 80ft Stairs Stairs: Yes Stairs Rails 1: Right, Left Device 1: No device Assistance 1: Contact guard Quality of Stairs 1: step to pattern, using bilateral UE to offload LE, decreased speed, decreased step height. Comment/Number of Steps 1: 4 steps x2 Transfers Transfer: Yes Transfer 1 Transfer From 1: Chair with arms Transfer Type 1: To and from Transfer to 1: Stand Technique 1: Sit to stand, Stand to sit Transfer Device 1: rolling walker Transfer Level of Assistance 1: Close supervision Trials/Comments 1: no SOB, LOB, or dizziness. Outcome Assessments 6 Clicks (Mobility) Help from another person turning from your back to your side while in a flat bed without using bedrails: A little Help from another person moving from lying on your back to sitting on the side of a flat bed without using bedrails: A little Help from another person moving to and from a bed to a chair (including a wheelchair): A little Help from another person standing up from a chair using your arms (e.g. wheelchair or bedside chair): A little Help from another person to walk in hospital room: A little Help from another person climbing 3-5 steps with a railing: A little Mobility 6 Clicks T-Score: 18 - (more content not included)... [facility] 01-30-2024 Note ------ Attestation signed by Mynor Gallegos MD at 01/31/2024 11:07 AM I did not personally examine the patient. I discussed the case with the resident/fellow ruslan ortez MD . Teaching Physician's Revisions: none ------ Orthopaedic Surgery Orthopaedic Surgery Progress Note Date: 01/30/2024 Surgery: 01/24/2024 - TOTAL KNEE ARTHROPLASTY (R) SUBJECTIVE: NAEON. Patient resting comfortably in the chair. She reports that she feels well this morning, has been working with therapy taking steps out of bed. OBJECTIVE BP 122/73 (BP Location: Left arm, Patient Position: Lying) Pulse 76 Temp 36.7 ???C (98.1 ???F) (Temporal) Resp 16 Ht 1.651 m (5' 5 ) Wt 106 kg (234 lb 3.2 oz) SpO2 96% BMI 38.97 kg/m??? General: A/O x3, resting comfortably in bed, cooperative MSK: RLE -Right knee with dressing in place - Compartments soft / compressible - SILT in superficial peroneal, deep peroneal, sural, saph nerve dist - Motor function intact in femoral, tibial, deep peroneal, superficial peroneal dist - Brisk capillary refill Labs: Lab Results Component Value Date WBC 9.11 01/30/2024 HGB 7.8 (L) 01/30/2024 HCT 24.8 (L) 01/30/2024 MCV 99.6 (H) 01/30/2024 PLT 245 01/30/2024 Lab Results Component Value Date GLU 97 12/26/2022 CALCIUM 10.8 (H) 01/30/2024 NA 135 (L) 01/30/2024 K 4.4 01/30/2024 CO2 27 01/30/2024 CL 105 01/30/2024 BUN 45 (H) 01/30/2024 CREATININE 1.45 (H) 01/30/2024 Lab Results Component Value Date INR 1.34 (H) 01/16/2024 Imaging: Imaging for last 3 days: No X-ray results found for the past [address] results found for the past 3 days No MRI results found for the past 3 days ASSESSMENT: Lizabeth Montanez is a 78 y.o. female 6 Days Post-Op TOTAL KNEE ARTHROPLASTY (R). Overall doing well PLAN -Medicine on board, appreciate recs. Weightbearing as tolerated RLE Abx: 24hrs Ancef DVT ppx: Eliquis 5 twice daily PT/OT Pain control: Multimodal Vitamin D / Calcium supplementation Dressing: Do not remove dressing, may reinforce as necessary PT/OT recommending IPR. PM&R consult, appreciate recs. Dc to home with home health care today 01/30/24 with outpatient follow up in clinic on 02/13/24 Ruslan Ortez MD Orthopaedic Surgery, PGY-V 01/30/2024 [facility] 01-30-2024 Note Followed up with pt on SNF vs. [facility] and pt decided to discharge home today w/ C. Requested [facility], referral sent. UPDATE 11:10AM- [facility] has accepted. Sent final AVS. [facility] 01-30-2024 Note Occupational Therapy Occupational Therapy Treatment Note Patient Name: Lizabeth Montanez Patient Date of : 1945 Today's Date: 01/30/24 Time in: 18 Time Out: 12 Total Time: 54 Active Ambulatory Problems Diagnosis Date Noted Chronic atrial fibrillation (CMS/HCC) 03/09/2008 Disorder of cardiovascular system 03/15/2008 Left ventricular hypertrophy 03/09/2008 Obesity 03/24/2010 Palpitations 08/18/2013 Pulmonary hypertension ([facility]/HCC) 06/15/2013 Warfarin therapy started 03/23/2008 Nonrheumatic mitral valve regurgitation 11/07/2022 Abnormal stress test 12/20/2022 Osteoarthritis of knee 04/16/2023 S/P total knee arthroplasty, left 07/12/2023 Hx of total knee arthroplasty, left 07/27/2023 COVID-19 09/13/2023 Right knee pain 12/07/2023 Resolved Ambulatory Problems Diagnosis Date Noted No Resolved Ambulatory Problems Past Medical History: Diagnosis Date Atrial fibrillation ([facility]) Hypertension OA (osteoarthritis) PONV (postoperative nausea and vomiting) OT Received On 01/30/24 Subjective If they don't get me into a facility today I think that I am just going to go home. Objective 1 Pt was up in chair at [facility] OT Discharge Recommendation [facility] Facility vs home with assist OT Equipment Recommendations Has needed equipment General Pain 4 Pain Location R knee Pain Comments Precautions: IV UE WB status bilateral, WBAT LE WB status bilateral, WBAT Cognition Orientation Oriented x4 Attention Span intact Memory intact Sequencing intact Problem Solving intact Other General Assessment Vision wears glasses all the time Hearing Intact Communication Intact Skin: No issues noted Edema: No issues noted Balance: Sitting Static Balance: Balance support RUE support, LUE support, Unilateral UE Support, No UE Support, Feet Supported Level of Assist: Independent Comments: While sitting EOB Standing Static Balance: Balance support R UE support, L UE support, Unilateral UE support, Rolling Walker Level of Assist: Supervision/set -up Comments: During guillermo care Activities of Daily Living Grooming: Level of Assistance: Supervision/set -up Where Assessed: Standing sink side , no assistive device Comments: With walker UB dressing: Level of Assistance: Supervision/set -up Where Assessed: From chair, No equipment used Comments: To change gowns LB dressing: Level of Assistance: Minimal assist Where Assessed: Standing , No equipment used Comments: To change brief. Pt has sock aid and severity of illness coordinator at home to use with LB dressing if needed. UB bathing: Level of Assistance: Supervision/set -up Where Assessed: Sitting EOB, None Comments: LB Bathing Level of Assistance: Supervision/set -up Where Assessed: Standing, Rolling Walker Comments: Toileting: Level of Assistance: Supervision/set -up Where Assessed: Toilet, Rolling Walker, Raised Toilet Seat, Grab Bars, toilet Comments: Bed Mobility: With HOB flat, use of rail Rolling Left: SBA/Supervision Comments: Supine to Sit: SBA/Supervision Comments: Transfers: Sit to Stand: SBA/Supervision, Rolling Walker Comments: Stand to Sit: SBA/Supervision, None Comments: To chair: SBA/Supervision, Rolling Walker Comments: To toilet: SBA/Supervision, Rolling Walker Comments: With use of walker to and from RTS with grab bar Functional Ambulation: Pt ambulated with use of walker from EOB to RTS, to standing at sink and then to recliner with supervision. OT Assessment: Pt is progressing toward goals but would benefit from continued therapy. Pt feels comfortable discharging home if she is not approved for skilled facility. Pt stated that she will ask her children to stay with her for a short time to assist as needed. Multi-Disciplinary Problems (from Occupational Therapy) Active Problems Problem: Bathing Start Date: 01/25/24 Goal Start Date Expected End Date End Date STG - Patient will bathe body with modified independent assistive devices as needed. 01/25/24 02/07/24 -- Problem: Dressings Lower Extremities Start Date: 01/25/24 Goal Start Date Expected End Date End Date STG - Patient will complete lower body dressing with modified independent assistive devices as needed. 01/25/24 02/07/24 -- Goal Start Date Expected End Date End Date STG - Patient to ambulate to closet to gather clothing with stand-by/contact guard using walker 01/25/24 02/07/24 -- Problem: Dressing Upper Extremities Start Date: 01/25/24 Goal Start Date Expected End Date End Date LTG - Patient will complete upper body dressing with no assistance 01/25/24 02/07/24 -- Goal Start Date Expected End Date End Date STG - Patient will ambulate to closet to retrieve clothing with stand-by/contact guard 01/25/24 02/07/24 -- Problem: Grooming Start Date: 01/25/24 Goal Start Date Expected End Date End Date STG - Patient will tolerate standing sink side to complete g (more content not included)... [facility] 01-29-2024 Note Discharge Planning U pdate OTM team notified that IPR placement was denied. I (social insurance administrator) along with RUC met with patient bedside to discuss discharge planning. Patient states she is feeling good and believes she should be able to return home. We took the time to explain SNF & HHC to patient. She reports she has a history of HHC through [facility]. She was encouraged to think about the direction she would like to go and floor social insurance administrator will follow up tomorrow. She showed understanding and was agreeable. She was also provided a SNF list to review. After today's conversation, it appears that patient is leaning towards going home, with HHC assistance. New discharge disposition: HHC vs. SNF [facility] 01-29-2024 Note Sent updates to [facility] and awaiting pre-cert which was started on 01/26. [facility] 01-29-2024 Note GIM Inpatient Progre ss Note Patient - Lizabeth Montanez Age - 78 [facility] 1945 [id number] Date of Admission - 01/24/2024 5:39 AM Interval history Patient seen and examined at the bedside this morning. Patient denies any acute events over the last 24 hours. Her pain is well-controlled and she is resting in bed. With therapy she does have pain that is consistent with her previous surgery. She denies any fevers or chills. She is tolerating p.o. intake and moving her bowels. She did have good urine output over the last 24 hours. Her renal function is stable this morning at her baseline. OBJECTIVE Vitals height is 1.651 m (5' 5 ) and weight is 105 kg (232 lb 6.4 oz). Her temporal temperature is 36.9 ???C (98.4 ???F). Her blood pressure is 115/65 and her pulse is 70. Her respiration is 16 and oxygen saturation is 97%. Temp: [36.6 ???C (97.9 ???F)-37.1 ???C (98.8 ???F)] 36.9 ???C (98.4 ???F) Heart Rate: [51-80] 70 Resp: [16] 16 BP: (115-142)/(65-83) 115/65 Weight: Admission weight: 94.6 kg (208 lb 8.9 oz) Wt Readings from Last 1 Encounters: 01/29/24 105 kg (232 lb 6.4 oz) Input/Output: Intake/Output Summary (Last 24 hours) at 01/29/2024 1048 Last data filed at 01/28/2024 2126 Gross per 24 hour Intake 240 ml Output -- Net 240 ml Physical Examination: General: Well-appearing, in no acute distress Head: Normocephalic, atraumatic. HEENT: Anicteric with moist mucous membranes. Pulm: Clear to auscultation. No audible wheezing, rales, or rhonchi. Breathing is non-labored. Cardiac: Regular rate, regular rhythm. Normal S1/S2. Grade 2-3 systolic murmur unchanged. GI: Abdomen is soft, non-distended, non-tender. Ext: No clubbing or cyanosis. No edema today. Neuro: Alert and oriented x 3. Lab Results Results from last 7 days Lab Units 01/29/24 0712 01/28/24 0531 01/27/24 0621 WBC AUTO 10*3/uL 8.63 9.46 9.08 HEMOGLOBIN g/dL 7.8* 8.4* 8.2* HEMATOCRIT % 24.1* 25.3* 25.3* PLATELETS AUTO 10*3/uL 218 197 196 Results from last 7 days Lab Units 01/29/24 0712 01/28/24 0531 01/27/24 0621 01/26/24 1231 SODIUM mmol/L 136 134* 136 135* POTASSIUM mmol/L 4.4 4.6 4.4 4.2 CHLORIDE mmol/L 106 104 106 104 CO2 mmol/L BUN mg/dL 46* 49* 58* 60* CREATININE mg/dL 1.52* 1.52* 1.74* 1.97* GLUCOSE mg/dL 82 90 87 127* CALCIUM mg/dL 10.4* 10.3 10.1 10.0 MAGNESIUM mg/dL 1.7* -- 2.0 1.4* Results from last 7 days Lab Units 01/25/24 0703 ALBUMIN g/dL 3.4* Lab Results Component Value Date HGBA1C 5.2 01/16/2024 No lab exists for component: TROPI , TROPONIN No lab exists for component: ABGPH , ABGPCO2 , ABGPO2 , ABGHCO3 , ABGBASEDEFIC , [id number] , ABGOXYGENSOU No lab exists for component: LACTICACID , PROCALCITON Results from last 7 days Lab Units 01/25/24 0703 VITAMIN B 12 pg/mL 310 FOLATE ng/mL 16.22 FERRITIN ng/mL 285.0 IRON ug/dL 46* TIBC ug/dL 235* IRON SATURATION % 20 No lab exists for component: CHOLHDL Lab Results Component Value Date WBCU 3-5 (A) 01/26/[address] results found for the past 12 months No MRI head results found for the past 12 months No X-ray results found for the past 3 days Medications Scheduled: allopurinol, 50 mg, oral, Daily after evening meal apixaban, 2.5 mg, oral, BID ascorbic acid, 500 mg, oral, Daily bisoprolol, 5 mg, oral, Daily cholecalciferol, 1,000 Units, oral, Daily docusate sodium, 100 mg, oral, BID ferrous sulfate, 325 mg, oral, Daily with breakfast [START ON 01/30/2024] furosemide, 40 mg, oral, Every other day magnesium oxide, 400 mg, oral, Daily Infusions: Oxygen Therapy, As Needed: PRN medications: acetaminophen, HYDROcodone-acetaminophen, ibuprofen, methocarbamol, ondansetron ODT OR ondansetron, Oxygen Therapy ASSESSMENT: Prerenal JAMEY over CKD 3B, resolved, likely hypoperfusion from hypotension- baseline creatinine 1.4-1.6. FENa 0.4% Bradycardia with hypotension, likely drug-induced- resolved Hyperuricemia-uric acid 7.6 Hypocortisolism, with unremarkable ACTH stimulation testing- no concerns for adrenal insufficiency. Baseline cortisol 2.2, peak cortisol level after cosyntropin stimulation was 18.9 Acute on chronic anemia, likely anemia of chronic disease due to underlying CKD Hypomagnesemia, likely secondary to diuretics- resolved Mild hyponatremia, likely effect of thiazides/fluid overload S/p R TKR Paroxysmal A-fib (on EQ) HFpEF Mild-moderate MR s/p DENISE (2022) Patent coronary arteries with mild pul HTN (PCWP 16 mm Hg) s/p LHC and RHC (11/2022) CKD 3b PLAN: Will continue monitoring renal function closely. Patient's renal function is back to baseline. Will continue holding hydrochlorothiazide, Cardizem, and Entresto. 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 Discharge planning to [facility] MD, PGY-2, DEPARTMENT OF INTERNAL M (more content not included)... [facility] 01-28-2024 Note ------ Attestation signed by Landry Mercado MD at 01/29/2024 8:33 AM By using the attestations below, the signing [...] be an additional personal documentation from me. ------ GI Inpatient Progress Note Patient - Lizabeth Montanez Age - 78 y.o. - 1945 Date of Admission - 01/24/2024 5:39 AM Interval history Patient seen and examined at the bedside this morning. Pain is well-controlled. Ambulating normally. No particular symptoms or concerns reported. Pending insurance authorization, patient will be discharged to rehab. OBJECTIVE Vitals height is 1.651 m (5' 5 ) and weight is 105 kg (231 lb). Her oral temperature is 37.6 ???C (99.7 ???F). Her blood pressure is 123/71 and her pulse is 79. Her respiration is 17 and oxygen saturation is 95%. Temp: [36.5 ???C (97.7 ???F)-37.6 ???C (99.7 ???F)] 37.6 ???C (99.7 ???F) Heart Rate: [52-79] 79 Resp: [16-17] 17 BP: (115-137)/(63-71) 123/71 Weight: Admission weight: 94.6 kg (208 lb 8.9 oz) Wt Readings from Last 1 Encounters: 01/28/24 105 kg (231 lb) Input/Output: Intake/Output Summary (Last 24 hours) at 01/28/2024 1347 Last data filed at 01/28/2024 1038 Gross per 24 hour Intake 600 ml Output 900 ml Net -300 ml Physical Examination: General: Well-appearing, in no acute distress Head: Normocephalic, atraumatic. HEENT: No scleral icterus. Pulm: Clear to auscultation. No audible wheezing, rales, or rhonchi. Breathing is non-labored. Cardiac: Regular rate, regular rhythm. Normal S1/S2. Mitral regurgitant murmur (grade 3) audible. GI: Abdomen is soft, non-distended, non-tender. Ext: No bilateral pitting edema drain is still intact on right lower extremity Neuro: Alert and oriented x 3. Lab Results Results from last 7 days Lab Units 01/28/24 0531 01/27/24 0601/26/24 1231 WBC AUTO 10*3/uL 9.46 9.08 11.31* HEMOGLOBIN g/dL 8.4* 8.2* 8.5* HEMATOCRIT % 25.3* 25.3* 26.5* PLATELETS AUTO 10*3/uL 197 196 199 Results from last 7 days Lab Units 01/28/24 0531 01/27/24 0621 01/26/24 1231 SODIUM mmol/L 134* 136 135* POTASSIUM mmol/L 4.6 4.4 4.2 CHLORIDE mmol/L 104 106 104 CO2 mmol/L 25 24 24 BUN mg/dL 49* 58* 60* CREATININE mg/dL 1.52* 1.74* 1.97* GLUCOSE mg/dL 90 87 127* CALCIUM mg/dL 10.3 10.1 10.0 MAGNESIUM mg/dL -- 2.0 1.4* Results from last 7 days Lab Units 01/25/24 0703 ALBUMIN g/dL 3.4* Lab Results Component Value Date HGBA1C 5.2 01/16/2024 No lab exists for component: TROPI , TROPONIN No lab exists for component: ABGPH , ABGPCO2 , ABGPO2 , ABGHCO3 , ABGBASEDEFIC , [id number] , ABGOXYGENSOU No lab exists for component: LACTICACID , PROCALCITON Results from last 7 days Lab Units 01/25/24 0703 VITAMIN B 12 pg/mL 310 FOLATE ng/mL 16.22 FERRITIN ng/mL 285.0 IRON ug/dL 46* TIBC ug/dL 235* IRON SATURATION % 20 No lab exists for component: CHOLHDL Lab Results Component Value Date WBCU 3-5 (A) 01/26/[address] results found for the past 12 months No MRI head results found for the past 12 months No X-ray results found for the past 3 days Medications Scheduled: allopurinol, 50 mg, oral, Daily after evening meal apixaban, 2.5 mg, oral, BID ascorbic acid, 500 mg, oral, Daily bisoprolol, 2.5 mg, oral, Once [START ON 01/29/2024] bisoprolol, 5 mg, oral, Daily cholecalciferol, 1,000 Units, oral, Daily docusate sodium, 100 mg, oral, BID ferrous sulfate, 325 mg, oral, Daily with breakfast [START ON 01/29/2024] furosemide, 40 mg, oral, Every other day magnesium oxide, 400 mg, oral, Daily Infusions: Oxygen Therapy, As Needed: PRN medications: acetaminophen, HYDROcodone-acetaminophen, ibuprofen, methocarbamol, ondansetron ODT OR ondansetron, Oxygen Therapy ASSESSMENT: Prerenal JAMEY over CKD 3B, resolved, likely hypoperfusion from hypotension- baseline creatinine 1.4-1.6. FENa 0.4% Bradycardia with hypotension, likely drug-induced- resolved Hyperuricemia-uric acid 7.6 Hypocortisolism, with unremarkable ACTH stimulation testing- no concerns for adrenal insufficiency. Baseline cortisol 2.2, peak cortisol level after cosyntropin stimulation was 18.9 Acute on chronic anemia, likely anemia of chronic disease due to underlying CKD Hypomagnesemia, likely secondary to diuretics- resolved Mild hyponatremia, likely effect of thiazides/fluid overload S/p R TKR Paroxysmal A-fib (on EQ) (more content not included)... [facility] 01-28-2024 Note Physical Therapy Physical Therapy Treatment Patient Name: Lizabeth Montanez : 1945 Today's Date: 01/28/2024 Patient Active Problem List Diagnosis Chronic atrial fibrillation (CMS/HCC) Disorder of cardiovascular system Left ventricular hypertrophy Obesity Palpitations Pulmonary hypertension (CMS/HCC) Warfarin therapy started Nonrheumatic mitral valve regurgitation Abnormal stress test Osteoarthritis of knee S/P total knee arthroplasty, left Hx of total knee arthroplasty, left COVID-19 Right knee pain Arthritis of right knee Hyponatremia Hypomagnesemia Stage 4 chronic kidney disease (CMS/HCC) Objective General Visit Information: PT Last Visit PT Received On: 01/28/24 Response to Previous Treatment: Patient with no complaints from previous session. General Family/Caregiver Present: No Subjective: Pt. seen bedside for PT session this a.m. Upon entry, pt in bedside chair from earlier session with LUQUE. Pt. cont. to deny pain when at rest, but reports pain during mobilitity. Pt. is pleasant and agreeable to activities as able. RN raven session. Vision - Basic Vision - Basic Assessment Current Vision: Wears glasses all the time Activity Tolerance Activity Tolerance Ambulation comments: Pt. ambulates from bedside chair, into hallway then returns to sit in bedside chair (~30'x2) with RW and CGA. Endurance: Stage III Activity Tolerance Comments: Pt. limited by pain and fatigue during mobility and limited by overall RLE weakness. She does exhibit mild SOB upon returning to room after ambulation but O2 sats remain in the mid to upper 90s. Precautions Precautions LE Weight Bearing Status: Right, WBAT Medical Precautions: telemetry, incisional wound vac Post-Surgical Precautions: Right TKA Pain Pain Assessment Pain Assessment: No/denies pain (but reports increased pain with mobility) Cognition Cognition Overall Cognitive Status: Within Functional Limits Arousal/Alertness: Appropriate responses to stimuli Orientation Level: Oriented X4 Following Commands: Follows multistep commands with increased time (d/t pain) Safety Judgment: Good awareness of safety precautions Awareness of Errors: Assistance required to identify errors made Deficits: Fully aware of deficits Attention Span: Appears intact Memory: Appears intact Problem Solving: Assistance required to identify errors made Communication: Intact Cognition Comments: Pt. is cooperative and motivated to work with PT. General Assessment General Assessment Hearing: WNL Static Sitting Balance Static Sitting Balance Static Sitting-Balance Support: No upper extremity supported, Feet supported Static Sitting-Level of Assistance: Independent Dynamic Sitting Balance Dynamic Sitting Balance Dynamic Sitting-Balance Support: Right upper extremity supported, Left upper extremity supported, Feet supported Dynamic Sitting Balance-Level of Assistance: Distant supervision Static Standing Balance Static Standing Balance Static Standing-Balance Support: Right upper extremity supported, Left upper extremity supported, With device (RW) Static Standing-Level of Assistance: Contact guard Dynamic Standing Balance Dynamic Standing Balance Dynamic Standing-Balance Support: Right upper extremity supported, Left upper extremity supported, With device (RW) Dynamic Standing Balance-Level of Assistance: Contact guard Treatment: Therapeutic Exercise Therapeutic Exercise Activity 1: RLE (AROM) ankle pumps, LAQs and marches x 12 reps. ea. while seated in bedside chair. Balance/Neuromuscular Re-Education Balance/Neuromuscular Re-Education Activity 1: Pt. stands to doff brief prior to toilet use, pericare and donning of brief after toilet use. She stands ~5 mins total. Ambulation Ambulation: Yes Ambulation 1 Surface 1: Level tile Device 1: Rolling walker Assistance 1: Contact guard Quality of Gait 1: Slow, antalgic gait. Step to gait pattern. Instabiity is noted, but no LOB. Comments/Distance (ft) 1: ~30'x2 Stairs Stairs: No Bed Mobility Bed Mobility: No (as pt was seated in bedside chair upon entry and returns to bedside chair at end of session) Transfers Transfer: Yes Transfer 1 Transfer From 1: Sit Transfer Type 1: To and from Transfer to 1: Stand Transfer Device 1: rolling walker Transfer Level of Assistance 1: Contact guard Modalities Cryotherapy (Minutes/Location/Skin Check): polar care refilled and redonned to right knee at end of session Outcome Assessments 6 Clicks (Mobility) Help from another person turning from your back to your side while in a flat bed without using bedrails: A little Help from another person moving from lying on your back to sitting on the side of a flat bed without using bedrails: A little Help from another person moving to and from a bed to a chair (including a wheelchair): A little Help from ano (more content not included)... [facility] 01-28-2024 Note Occupational Therapy Occupational Therapy Treatment Note Patient Name: Lizabeth Montanez Patient Date of : 1945 Today's Date: 01/28/24 Time in: 833 Time Out: 930 Total Time: 57 Active Ambulatory Problems Diagnosis Date Noted Chronic atrial fibrillation (CMS/HCC) 03/09/2008 Disorder of cardiovascular system 03/15/2008 Left ventricular hypertrophy 03/09/2008 Obesity 03/24/2010 Palpitations 08/18/2013 Pulmonary hypertension (CMS/HCC) 06/15/2013 Warfarin therapy started 03/23/2008 Nonrheumatic mitral valve regurgitation 11/07/2022 Abnormal stress test 12/20/2022 Osteoarthritis of knee 04/16/2023 S/P total knee arthroplasty, left 07/12/2023 Hx of total knee arthroplasty, left 07/27/2023 COVID-19 09/13/2023 Right knee pain 12/07/2023 Resolved Ambulatory Problems Diagnosis Date Noted No Resolved Ambulatory Problems Past Medical History: Diagnosis Date Atrial fibrillation (CMS/HCC) Hypertension OA (osteoarthritis) PONV (postoperative nausea and vomiting) OT Received On 01/28/24 Subjective I need to use the bathroom Objective 1 Pt was up in chair at EOS Objective 2 OT Discharge Recommendation [facility] OT Equipment Recommendations TBD General Pain 3 Pain Location R Knee Pain Comments Precautions: IV, telemetry, wound vac UE WB status bilateral, WBAT LE WB status bilateral, WBAT Cognition Orientation Oriented x4 Attention Span intact Memory intact Sequencing intact Problem Solving intact Other General Assessment Vision wears glasses all the time Hearing Intact Communication Intact Skin: No issues noted Edema: No issues noted Balance: Sitting Static Balance: Balance support RUE support, LUE support, Unilateral UE Support, No UE Support, Feet Supported Level of Assist: Supervision/set -up Comments: EOB and on toilet Standing Static Balance: Balance support R UE support, L UE support, Unilateral UE support, Rolling Walker Level of Assist: Supervision/set -up Comments: Standing at sink for grooming and while standing for guillermo care Activities of Daily Living Grooming: Level of Assistance: Supervision/set -up Where Assessed: Standing sink side , no assistive device Comments: UB dressing: Level of Assistance: Supervision/set -up Where Assessed: From chair, No equipment used Comments: To change gowns LB dressing: Level of Assistance: Moderate assist Where Assessed: Standing , No equipment used Comments: To change brief UB bathing: Level of Assistance: Supervision/set -up Where Assessed: from chair, None Comments: LB Bathing Level of Assistance: Moderate assist Where Assessed: Standing, Rolling Walker Comments: Pt stood with walker to complete perineal hygiene but was dependent for perianal hygiene due to bowel accident Toileting: Level of Assistance: Moderate assist Where Assessed: Toilet, Rolling Walker, Raised Toilet Seat, Grab Bars, toilet Comments: Pt was able to complete guillermo catracho hygiene but was dependent for perianal hygiene. Bed Mobility: For supine to sit at EOB with use of hospital bed Rolling Left: SBA/Supervision Comments: Supine to Sit: SBA/Supervision Comments: Transfers: Sit to Stand: SBA/Supervision, Rolling Walker Comments: Stand to Sit: SBA/Supervision, None Comments: Cues for hand placement To chair: CGA, Rolling Walker Comments: To toilet: CGA, Rolling Walker Comments: To and from RTS with grab bar Functional Ambulation: Pt ambulated with use of walker from EOB to toilet, sink and then to recliner with hands on for safety. Retirement Actuary notes pt requires increased time. No LOB OT Assessment: Pt is progressing toward goals but would benefit from continued therapy. Multi-Disciplinary Problems (from Occupational Therapy) Active Problems Problem: Bathing Start Date: 01/25/24 Goal Start Date Expected End Date End Date STG - Patient will bathe body with modified independent assistive devices as needed. 01/25/24 02/07/24 -- Problem: Dressings Lower Extremities Start Date: 01/25/24 Goal Start Date Expected End Date End Date STG - Patient will complete lower body dressing with modified independent assistive devices as needed. 01/25/24 02/07/24 -- Goal Start Date Expected End Date End Date STG - Patient to ambulate to closet to gather clothing with stand-by/contact guard using walker 01/25/24 02/07/24 -- Problem: Dressing Upper Extremities Start Date: 01/25/24 Goal Start Date Expected End Date End Date LTG - Patient will complete upper body dressing with no assistance 01/25/24 02/07/24 -- Goal Start Date Expected End Date End Date STG - Patient will ambulate to closet to retrieve clothing with stand-by/contact guard 01/25/24 02/07/24 -- Problem: Grooming Start Date: 01/25/24 Goal Start Date Expected End Date End Date STG - Patient will tolerate standing sink side to complete grooming with no assistance (more content not included)... [facility] 01-27-2024 Note DISCHARGE PLANNING Marcia VICKERS I (social insurance administrator) spoke to admissions team at [facility]. They confirmed that they submitted for insurance authorization. Updates sent via [facility]. Discharge barriers: medical readiness/stability, insurance authorization [facility] 01-27-2024 Note Physical Therapy Physical Therapy Treatment Patient Name: Lizabeth Montanez : 1945 Today's Date: 01/27/2024 Patient Active Problem List Diagnosis Chronic atrial fibrillation (CMS/HCC) Disorder of cardiovascular system Left ventricular hypertrophy Obesity Palpitations Pulmonary hypertension (CMS/HCC) Warfarin therapy started Nonrheumatic mitral valve regurgitation Abnormal stress test Osteoarthritis of knee S/P total knee arthroplasty, left Hx of total knee arthroplasty, left COVID-19 Right knee pain Arthritis of right knee Hyponatremia Hypomagnesemia Stage 4 chronic kidney disease (CMS/HCC) Objective General Visit Information: PT Last Visit PT Received On: 01/27/24 Response to Previous Treatment: Patient with no complaints from previous session. General Family/Caregiver Present: Yes (family members are present at bedside upon entry and remain during session) Subjective: Pt. seen bedside for PT session this p.m. Upon entry, pt. in bed and family is seated at bedside. Pt. reports that she sat up in chair earlier today, but has been back in bed for a couple of hours. She is agreeable to working with PT and returning to sit in chair at this time. She denies pain when at rest, but reports increase with mobility. RN raven session including up in bedside chair. Vision - Basic Vision - Basic Assessment Current Vision: Wears glasses all the time Activity Tolerance Activity Tolerance Ambulation comments: Pt. ambulates from EOB to toilet then to bedside chair (~10', ~14') with RW and CGA. Endurance: Stage II Activity Tolerance Comments: Pt. limited by RLE pain and weakness. She does exhibit fatigue after prolonged standing with mild SOB. O2 sats remain in the mid to upper 90s throughout. Precautions Precautions LE Weight Bearing Status: Right, WBAT Medical Precautions: telemetry, incisional wound vac Post-Surgical Precautions: Right TKA Pain Pain Assessment Pain Assessment: No/denies pain (pt reports increased pain with mobility) Cognition Cognition Overall Cognitive Status: Within Functional Limits Arousal/Alertness: Appropriate responses to stimuli Orientation Level: Oriented X4 Following Commands: Follows multistep commands with increased time (d/t pain) Safety Judgment: Good awareness of safety precautions Awareness of Errors: Assistance required to identify errors made Deficits: Fully aware of deficits Attention Span: Appears intact Memory: Appears intact Problem Solving: Assistance required to identify errors made Communication: Intact Cognition Comments: Pt. is cooperative and motivated to work with PT. General Assessment General Assessment Hearing: WNL Static Sitting Balance Static Sitting Balance Static Sitting-Balance Support: No upper extremity supported, Feet supported Static Sitting-Level of Assistance: Independent Dynamic Sitting Balance Dynamic Sitting Balance Dynamic Sitting-Balance Support: Feet supported, Right upper extremity supported, Left upper extremity supported Dynamic Sitting Balance-Level of Assistance: Distant supervision Static Standing Balance Static Standing Balance Static Standing-Balance Support: Right upper extremity supported, Left upper extremity supported, With device (RW) Static Standing-Level of Assistance: Contact guard Dynamic Standing Balance Dynamic Standing Balance Dynamic Standing-Balance Support: Right upper extremity supported, Left upper extremity supported, With device (RW) Dynamic Standing Balance-Level of Assistance: Contact guard Treatment: Therapeutic Exercise Therapeutic Exercise Activity 1: RLE (AROM) ankle pumps, LAQs and marches x 12 reps. ea. while seated in bedside chair. Balance/Neuromuscular Re-Education Balance/Neuromuscular Re-Education Activity 1: Pt. stands to doff brief prior to toilet use, pericare and donning of brief after toilet use. She stands ~5 mins total. Ambulation Ambulation: Yes Ambulation 1 Surface 1: Level tile Device 1: Rolling walker Assistance 1: Contact guard Quality of Gait 1: Slow, antalgic gait. Step to gait pattern. Unsteadiness is noted, but no LOB. Comments/Distance (ft) 1: ~10', ~14' Stairs Stairs: No Bed Mobility Bed Mobility: Yes Bed Mobility 1 Bed Mobility From 1: Supine Bed Mobility Type 1: To Bed Mobility to 1: Short sit Level of Assistance 1: Close supervision Bed Mobility Comments 1: HOB elevated, bedrail raised to assist. Increased time to fully obtain sitting position adamaris for progression of RLE to EOB. Transfers Transfer: Yes Transfer 1 Transfer From 1: Sit Transfer Type 1: To Transfer to 1: Stand Transfer Device 1: rolling walker Transfer Level of Assistance 1: Contact guard Transfers 2 Transfer From 2: Sit Transfer Type 2: To and from Transfer to 2: Stand, Toilet Transfer Device 2: grab bar/toilet Transfer Level of Assistance 2: Conta (more content not included)... [facility] 01-27-2024 Note ------ Attestation signed by Isak Raymond MD at 01/27/2024 1:13 PM By using the attestations below, the signing [...] be an additional personal documentation from me. Reviewed and approved by ISAK RAYMOND on 01/27/24 at 1:10 PM. ------ GI Inpatient Progress Note Patient - Lizabeth E Montanez Age - 78 y.o. - 1945 Date of Admission - 01/24/2024 5:39 AM Interval history Patient seen and examined at the bedside this morning. Is ambulating well. Pain is well-controlled. Patient is no longer hypotensive. Heart rate is much better without the medications. Does have slight increase in lower extremity swelling. Does not have any chest pain or shortness of breath. Kidney function is back to baseline. Disposition pending insurance authorization. OBJECTIVE Vitals height is 1.651 m (5' 5 ) and weight is 105 kg (232 lb 4.8 oz). Her oral temperature is 36.7 ???C (98.1 ???F). Her blood pressure is 117/62 and her pulse is 66. Her respiration is 16 and oxygen saturation is 98%. Temp: [36.7 ???C (98.1 ???F)-36.8 ???C (98.2 ???F)] 36.7 ???C (98.1 ???F) Heart Rate: [61-66] 66 Resp: [16-20] 16 BP: (117-134)/(61-72) 117/62 Weight: Admission weight: 94.6 kg (208 lb 8.9 oz) Wt Readings from Last 1 Encounters: 01/26/24 105 kg (232 lb 4.8 oz) Input/Output: Intake/Output Summary (Last 24 hours) at 01/27/2024 1153 Last data filed at 01/27/2024 1015 Gross per 24 hour Intake 783.33 ml Output -- Net 783.33 ml Physical Examination: General: Well-appearing, in no acute distress Head: Normocephalic, atraumatic. HEENT: No scleral icterus. Pulm: Clear to auscultation. No audible wheezing, rales, or rhonchi. Breathing is non-labored. Cardiac: Regular rate, regular rhythm. Normal S1/S2. Mitral regurgitant murmur (grade 3) audible. GI: Abdomen is soft, non-distended, non-tender. Ext: Does have +1 pitting edema on LLE. Drain is still intact on right lower extremity Neuro: Alert and oriented x 3. Lab Results Results from last 7 days Lab Units 01/27/24 0621 01/26/24 1231 01/25/24 0702 WBC AUTO 10*3/uL 9.08 11.31* 13.05* HEMOGLOBIN g/dL 8.2* 8.5* 8.3* HEMATOCRIT % 25.3* 26.5* 26.2* PLATELETS AUTO 10*3/uL 196 199 188 Results from last 7 days Lab Units 01/27/24 0621 01/26/24 1231 01/25/24 0703 SODIUM mmol/L 136 135* 135* POTASSIUM mmol/L 4.4 4.2 5.0 CHLORIDE mmol/L 106 104 106 CO2 mmol/L BUN mg/dL 58* 60* 51* CREATININE mg/dL 1.74* 1.97* 1.94* GLUCOSE mg/dL 87 127* 137* CALCIUM mg/dL 10.1 10.0 10.3 MAGNESIUM mg/dL 2.0 1.4* -- Results from last 7 days Lab Units 01/25/24 0703 ALBUMIN g/dL 3.4* Lab Results Component Value Date HGBA1C 5.2 01/16/2024 No lab exists for component: TROPI , TROPONIN No lab exists for component: ABGPH , ABGPCO2 , ABGPO2 , ABGHCO3 , ABGBASEDEFIC , [id number] , ABGOXYGENSOU No lab exists for component: LACTICACID , PROCALCITON Results from last 7 days Lab Units 01/25/24 0703 VITAMIN B 12 pg/mL 310 FOLATE ng/mL 16.22 FERRITIN ng/mL 285.0 IRON ug/dL 46* TIBC ug/dL 235* IRON SATURATION % 20 No lab exists for component: CHOLHDL Lab Results Component Value Date WBCU 3-5 (A) 01/26/[address] results found for the past 12 months No MRI head results found for the past 12 months No X-ray results found for the past 3 days Medications Scheduled: apixaban, 2.5 mg, oral, BID ascorbic acid, 500 mg, oral, Daily cholecalciferol, 1,000 Units, oral, Daily docusate sodium, 100 mg, oral, BID ferrous sulfate, 325 mg, oral, Daily with breakfast magnesium oxide, 400 mg, oral, Daily Infusions: Oxygen Therapy, As Needed: PRN medications: acetaminophen, HYDROcodone-acetaminophen, ibuprofen, methocarbamol, ondansetron ODT OR ondansetron, Oxygen Therapy ASSESSMENT: Prerenal JAMEY over CKD 3B, improving, likely hypoperfusion from hypotension- baseline creatinine 1.4-1.6. FENa 0.4% Bradycardia with hypotension, likely drug-induced- resolved Hypocortisolism, with unremarkable ACTH stimulation testing- no concerns for adrenal insufficiency. Baseline cortisol 2.2, peak cortisol level after cosyntropin stimulation was 18.9 Acute on chronic anemia- baseline HB 9-10 Hypomagnesemia, likely secondary to diuretics- resolved. Mg was 1.4 Borderline hypercalcemia- rule out hypervitaminosis D/Vit D toxicity Mild hyponatremia, likel (more content not included)... [facility] 01-27-2024 Note Occupational Therapy Occupational Therapy Treatment Note Patient Name: Lizabeth Montanez Patient Date of : 1945 Today's Date: 01/27/24 Time in: 1022 Time Out: 1120 Total Time: 58 Active Ambulatory Problems Diagnosis Date Noted Chronic atrial fibrillation (CMS/HCC) 03/09/2008 Disorder of cardiovascular system 03/15/2008 Left ventricular hypertrophy 03/09/2008 Obesity 03/24/2010 Palpitations 08/18/2013 Pulmonary hypertension (CMS/HCC) 06/15/2013 Warfarin therapy started 03/23/2008 Nonrheumatic mitral valve regurgitation 11/07/2022 Abnormal stress test 12/20/2022 Osteoarthritis of knee 04/16/2023 S/P total knee arthroplasty, left 07/12/2023 Hx of total knee arthroplasty, left 07/27/2023 COVID-19 09/13/2023 Right knee pain 12/07/2023 Resolved Ambulatory Problems Diagnosis Date Noted No Resolved Ambulatory Problems Past Medical History: Diagnosis Date Atrial fibrillation (CMS/HCC) Hypertension OA (osteoarthritis) PONV (postoperative nausea and vomiting) OT Received On 01/27/24 Subjective I had my other knee done in June and its doing great! Objective 1 Pt asked to return to bed at [facility] (Upon arrival pt was up in chair) Objective 2 OT Discharge Recommendation [facility] OT Equipment Recommendations TBD General Pain 6 Pain Location R Knee Pain Comments Precautions: IV, telemetry, TKA, wound vac UE WB status bilateral, WBAT LE WB status bilateral, WBAT Cognition Orientation Oriented x4 Attention Span intact Memory intact Sequencing intact Problem Solving intact Other General Assessment Vision wears glasses all the time Hearing Intact Communication Intact Skin: No issues noted Edema: No issues noted Balance: Sitting Static Balance: Balance support RUE support, LUE support, Unilateral UE Support, No UE Support, Feet Supported Level of Assist: Supervision/set -up Comments: Standing Static Balance: Balance support R UE support, L UE support, Unilateral UE support, Rolling Walker Level of Assist: Supervision/set -up Comments: While standing for guillermo care and grooming tasks Activities of Daily Living Grooming: Level of Assistance: Supervision/set -up Where Assessed: Standing sink side , no assistive device Comments: While standing at sink with walker UB dressing: Level of Assistance: Supervision/set -up Where Assessed: From chair, No equipment used Comments: To change gowns UB bathing: Level of Assistance: Supervision/set -up Where Assessed: from chair, None Comments: LB Bathing Level of Assistance: Supervision/set -up Where Assessed: Standing, Rolling Walker Comments: Standing with walker for guillermo care and brief change Bed Mobility: For sit to supine. Assist required with B LE's Rolling Right: Minimal Assist Comments: Sit to Supine: Minimal Assist Comments: Transfers: Sit to Stand: Minimal Assist , Rolling Walker Comments: Stand to Sit: SBA/Supervision, None Comments: To chair: Minimal Assist , Rolling Walker Comments: With hands on for safety from recliner to sink and then back to recliner. No sitting rest breaks Functional Ambulation: Pt ambulated with use of walker and hands on for safety from recliner to sink side and then back to recliner. No LOB noted throughout. OT Assessment: Pt is progressing toward goals but would benefit from continued therapy to increase balance, safety and endurance during mobility and independence with ADL's to return to PLOF Multi-Disciplinary Problems (from Occupational Therapy) Active Problems Problem: Bathing Start Date: 01/25/24 Goal Start Date Expected End Date End Date STG - Patient will bathe body with modified independent assistive devices as needed. 01/25/24 02/07/24 -- Problem: Dressings Lower Extremities Start Date: 01/25/24 Goal Start Date Expected End Date End Date STG - Patient will complete lower body dressing with modified independent assistive devices as needed. 01/25/24 02/07/24 -- Goal Start Date Expected End Date End Date STG - Patient to ambulate to closet to gather clothing with stand-by/contact guard using walker 01/25/24 02/07/24 -- Problem: Dressing Upper Extremities Start Date: 01/25/24 Goal Start Date Expected End Date End Date LTG - Patient will complete upper body dressing with no assistance 01/25/24 02/07/24 -- Goal Start Date Expected End Date End Date STG - Patient will ambulate to closet to retrieve clothing with stand-by/contact guard 01/25/24 02/07/24 -- Problem: Grooming Start Date: 01/25/24 Goal Start Date Expected End Date End Date STG - Patient will tolerate standing sink side to complete grooming with no assistance 01/25/24 02/07/24 -- Problem: Toileting Start Date: 01/25/24 Goal Start Date Expected End Date End Date STG - Patient will complete toileting tasks with no assistance 01/25/24 02/07/24 -- Problem: Transfers Start Date: 01/25/24 Goal Star (more content not included)... [facility] 01-26-2024 Note Followed up with pt on IPR decision. Pt agreeable and would like to try for [facility]. Advised pt of referral/pre-cert process and also warned of potential transport costs going that far. Pt stated she may elect to have family transport if able. [facility] 01-26-2024 Note ------ Attestation signed by Isak Raymond MD at 01/27/2024 9:03 AM By using the attestations below, the signing [...] be an additional personal documentation from me. Reviewed and approved by ISAK RAYMOND on 01/27/24 at 9:03 AM. ------ GI Inpatient Progress Note Patient - Lizabeth Montanez Age - 78 y.o. - 1945 Date of Admission - 01/24/2024 5:39 AM Interval history Patient seen and examined at the bedside. No acute events reported overnight. Denies any chest pain or shortness of breath. Blood pressure and heart rate much better after being off the medication. Underwent cosyntropin stimulation test this morning, which was unremarkable. No hypoglycemic or hypotensive episodes noted. Leg swelling at baseline. Plan of discharge to rehab once bed is available. OBJECTIVE Vitals height is 1.651 m (5' 5 ) and weight is 105 kg (232 lb 4.8 oz). Her oral temperature is 36.9 ???C (98.4 ???F). Her blood pressure is 107/60 and her pulse is 56. Her respiration is 16 and oxygen saturation is 97%. Temp: [36.5 ???C (97.7 ???F)-36.9 ???C (98.4 ???F)] 36.9 ???C (98.4 ???F) Heart Rate: [56-64] 56 Resp: [16] 16 BP: (107-117)/(57-64) 107/60 Weight: Admission weight: 94.6 kg (208 lb 8.9 oz) Wt Readings from Last 1 Encounters: 01/26/24 105 kg (232 lb 4.8 oz) Input/Output: Intake/Output Summary (Last 24 hours) at 01/26/2024 1209 Last data filed at 01/26/2024 0500 Gross per 24 hour Intake 240 ml Output -- Net 240 ml Physical Examination: General: Well-appearing, in no acute distress Head: Normocephalic, atraumatic. HEENT: No scleral icterus. Pulm: Clear to auscultation. No audible wheezing, rales, or rhonchi. Breathing is non-labored. Cardiac: Regular rate, regular rhythm. Normal S1/S2. Mitral regurgitant murmur (grade 3) audible. GI: Abdomen is soft, non-distended, non-tender. Ext: Does have +1 bilateral pitting edema on lower extremities (at baseline). Neuro: Alert and oriented x 3. Lab Results Results from last 7 days Lab Units 01/25/24 0702 WBC AUTO 10*3/uL 13.05* HEMOGLOBIN g/dL 8.3* HEMATOCRIT % 26.2* PLATELETS AUTO 10*3/uL 188 Results from last 7 days Lab Units 01/25/24 0703 SODIUM mmol/L 135* POTASSIUM mmol/L 5.0 CHLORIDE mmol/L 106 CO2 mmol/L 24 BUN mg/dL 51* CREATININE mg/dL 1.94* GLUCOSE mg/dL 137* CALCIUM mg/dL 10.3 Results from last 7 days Lab Units 01/25/24 0703 ALBUMIN g/dL 3.4* Lab Results Component Value Date HGBA1C 5.2 01/16/2024 No lab exists for component: TROPI , TROPONIN No lab exists for component: ABGPH , ABGPCO2 , ABGPO2 , ABGHCO3 , ABGBASEDEFIC , [id number] , ABGOXYGENSOU No lab exists for component: LACTICACID , PROCALCITON Results from last 7 days Lab Units 01/25/24 0703 VITAMIN B 12 pg/mL 310 FOLATE ng/mL 16.22 FERRITIN ng/mL 285.0 IRON ug/dL 46* TIBC ug/dL 235* IRON SATURATION % 20 No lab exists for component: CHOLHDL Lab Results Component Value Date WBCU 3-5 (A) 01/16/[address] results found for the past 12 months No MRI head results found for the past 12 months XR knee 1 or 2 views right Result Date: 01/25/2024 *Status post tricompartmental knee arthroplasty. No acute hardware complications. Approved by:Mann Parker01/25/2024 1:53 AM. I, Prasanna Marlow,have reviewed the image(s) and agree with the findings in this report. Electronically signed: Prasanna Marlow. Medications Scheduled: apixaban, 2.5 mg, oral, BID ascorbic acid, 500 mg, oral, Daily bisoprolol, 5 mg, oral, Daily cholecalciferol, 1,000 Units, oral, Daily docusate sodium, 100 mg, oral, BID ferrous sulfate, 325 mg, oral, Daily with breakfast Infusions: Oxygen Therapy, As Needed: PRN medications: acetaminophen, HYDROcodone-acetaminophen, ibuprofen, methocarbamol, ondansetron ODT OR ondansetron, Oxygen Therapy ASSESSMENT: Bradycardia combined with hypertension, likely drug-induced, resolved Hypocortisolism, with unremarkable ACTH stimulation testing- no concerns for adrenal insufficiency. Baseline cortisol 2.2, peak cortisol level after cosyntropin stimulation was 18.9 Prerenal JAMEY over CKD 3B, likely hypoperfusion from hypotension- baseline creatinine 1.4-1.6. FENa 0.4% Acute on chronic anemia- baseline HB 9-10 Mild hyponatremia, likely effect of thiazides S/p R TKR Paroxysmal A-fib (on EQ) HFpEF Mi (more content not included)... [facility] 01-26-2024 Note Physical Therapy Carlos atment Patient Name: Lizabeth Montanez Today's Date: 01/26/2024 Admit Date: 01/24/2024 Time In: 7:54 Time Out: 8:29 Total Time: 35 minutes Subjective:Nurse states ok to see. Pt in bed upon arrival, she rates pain in R knee 4-5/10 with movement and no pain at rest. PMH/PSH per chart Patient Active Problem List Diagnosis Chronic atrial fibrillation (CMS/HCC) Disorder of cardiovascular system Left ventricular hypertrophy Obesity Palpitations Pulmonary hypertension (CMS/HCC) Warfarin therapy started Nonrheumatic mitral valve regurgitation Abnormal stress test Osteoarthritis of knee S/P total knee arthroplasty, left Hx of total knee arthroplasty, left COVID-19 Right knee pain Arthritis of right knee Past Medical History: Diagnosis Date Atrial fibrillation (CMS/HCC) COVID-19 Hypertension Left ventricular hypertrophy Nonrheumatic mitral valve regurgitation OA (osteoarthritis) Obesity Osteoarthritis of knee Palpitations PONV (postoperative nausea and vomiting) Pulmonary hypertension (CMS/HCC) Right knee pain Past Surgical History: Procedure Laterality Date CARDIOVERSION SECTION, LOW TRANSVERSE X3 KNEE ARTHROPLASTY Left TONSILLECTOMY Precautions telemetry, weight bearing as tolerated to R LE , fall risk Objective: Bed mobility Supine to sit: HOB flat with CGA, increased time to advance Les and use of bed rails to assist with trunk. Sit to supine:CGA with HOB flat, increased time to complete using rails for support. Verbal cues to use L LE to assist with lifting R LE. Scooting up in bed:Required verbal cues to bend L knee to assist with hip lift/scooting, increased time and effort with definite need for railing. Transfers Sit to stand:CGA from EOB with verbal cues for correct UE push off from bed. CGA from elevated commode using bilat grab bars. Stand to sit: CGA to elevated commode and bedside chair with CGA and cues to slide R foot forward for improved comfort as she was having difficulty flexing R knee with full Wbing. Gait Pt amb in room 12 ft x2 and in hallway 50 ft x2 with RW and CGA. Pt cued to increase R heel strike with good follow through after cueing. She demonstrates decreased R LE Wbing and varies between step to/partial step through pattern. Pt noted R knee feels unsteady during gait but had no LOB. Endurance Stage II Balance Sitting static: indep with bilat Les supported. Sitting dynamic:indep with bilat Les supported. Standing static:indep with bilat UE support on RW. Standing dynamic: CGA with bilat UE support on RW. Exercise: Pt instructed in 10 bilat LE strengthening ex to increase ease of functional mobility and gait as well as facilitate increased R LE ROM. Performed ankle pumps, quad sets with R heel prop on pillow to facilitate knee ext ROM, heel slides, hip abd, SLR, SAQ. Tactile cues for correct technique during SAQ. Treatment Comments: Pt in chair with Les elevated and ice machine donned at end of session. Tray table and call light within reach, she rates R knee pain 4/10. Mobility 6-Click T-Score: 6 Clicks (Mobility) Help from another person turning from your back to your side while in a flat bed without using bedrails: A little Help from another person moving from lying on your back to sitting on the side of a flat bed without using bedrails: A little Help from another person moving to and from a bed to a chair (including a wheelchair): A little Help from another person standing up from a chair using your arms (e.g. wheelchair or bedside chair): A little Help from another person to walk in hospital room: A little Help from another person climbing 3-5 steps with a railing: A little Mobility 6 Clicks T-Score: 18 Assessment: PT Assessment PT Assessment/FULFILLMENT REPRESENTATIVE Summary: Pt demonstrates decreased strength and ROM during transfers and gait today. Pt continues to be good candidate for IPR in order to increase functional strength and mobility for return home indep and assist in caregiving for her who is ill. Goals Multi-Disciplinary Problems (from Physical Therapy) Active Problems Problem: PT Misc Start Date: 01/25/24 Goal Start Date Expected End Date End Date STG - Patient will ambulate at least 100 ft with CGA x1 with RW for ease with household ambulation. 01/25/24 02/01/24 -- Goal Start Date Expected End Date End Date STG - Patient will complete a STS transfer with SBA for ease with rising from a chair. 01/25/24 02/01/24 -- Goal Start Date Expected End Date End Date LTG - Patient will ambulate at least 200 ft with SBA and RW for ease with household ambulation. 01/25/24 02/15/24 -- Goal Start Date Expected End Date End Date LTG - Patient will perform a STS transfer with modified independent utilizing a RW for ease with rising from the toilet. 01/25/24 02/15/24 -- Goal Start Date Expected End Date End Date (more content not included)... [facility] 01-26-2024 Note ------ Attestation signed by Mynor Gallegos MD at 02/01/2024 11:05 AM I did not personally examine the patient. I discussed the case with the resident/fellow Riki Le MD. Teaching Physician's Revisions: none ------ Orthopaedic Surgery Orthopaedic Surgery Progress Note Date: 01/26/2024 Surgery: 01/24/2024 - TOTAL KNEE ARTHROPLASTY (R) SUBJECTIVE: NAEON. Patient resting comfortably in bed. She reports that she feels well this morning. Vital stable overnight. She denies any dizziness or lightheadedness. She denies any fevers, chills, chest pain, shortness of breath, nausea, or vomiting. OBJECTIVE BP 117/64 (BP Location: Left arm, Patient Position: Lying) Pulse 62 Temp 36.9 ???C (98.4 ???F) (Oral) Resp 16 Ht 1.651 m (5' 5 ) Wt 105 kg (232 lb 4.8 oz) SpO2 96% BMI 38.66 kg/m??? General: A/O x3, resting comfortably in bed, cooperative MSK: RLE -Right knee with dressing in place - Compartments soft / compressible - SILT in superficial peroneal, deep peroneal, sural, saph nerve dist - Motor function intact in femoral, tibial, deep peroneal, superficial peroneal dist - Brisk capillary refill Labs: Lab Results Component Value Date WBC 13.05 (H) 01/25/2024 HGB 8.3 (L) 01/25/2024 HCT 26.2 (L) 01/25/2024 MCV 99.2 (H) 01/25/2024 PLT 188 01/25/2024 Lab Results Component Value Date GLU 97 12/26/2022 CALCIUM 10.3 01/25/2024 NA 135 (L) 01/25/2024 K 5.0 01/25/2024 CO2 24 01/25/2024 CL 106 01/25/2024 BUN 51 (H) 01/25/2024 CREATININE 1.94 (H) 01/25/2024 Lab Results Component Value Date INR 1.34 (H) 01/16/2024 Imaging: Imaging for last 3 days: XR knee 1 or 2 views right Result Date: 01/25/2024 *Status post tricompartmental knee arthroplasty. No acute hardware complications. Approved by:Mann Parker01/25/2024 1:53 AM. I, Prasanna Marlow,have reviewed the image(s) and agree with the findings in this report. Electronically signed: Prasanna Marlow. No CT results found for the past 3 days No MRI results found for the past 3 days ASSESSMENT: Lizabeth Montanez is a 78 y.o. female 2 Days Post-Op TOTAL KNEE ARTHROPLASTY (R). Overall doing well PLAN -Continue to monitor hemoglobin -Consult to medicine, appreciate recommendations. Blood pressure and A-fib medications adjusted in setting of JAMEY. Patient undergoing additional lab work due to abnormal cortisol level. Weightbearing as tolerated RLE Abx: 24hrs Ancef DVT ppx: Eliquis 5 twice daily PT/OT Pain control: Multimodal Vitamin D / Calcium supplementation Dressing: Do not remove dressing, may reinforce as necessary PT/OT recommending IPR. PM&R consult, appreciate recs. Riki Le MD Orthopaedic Surgery, PGY-1 Ortho Pager [phone] 01/26/24 6:44 AM I am available via [employer] 6a-6p. May contact the on-call resident with any concerns via the Orthopaedic pager at any time. [facility] 01-25-2024 Note 01/25/24 1539 Referral Data Referral Source Physician Referral Reason Placement Patient Information Primary Caregiver Self Accompanied by/Relationship and 2 children at bedside. 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 Yes Patient's goal for discharge Likely Inpatient Rehab- pt wants to discuss w/ family first. Does the patient need discharge transport arranged? Maybe Screened pt at bedside who is alert/ox4 along w/ and 2 children. OT/PT evaluated and recommended Inpatient Rehab. Met with pt/family and advised what IPR is and discussed the local options to them with [facility] being closest to them. Pt stated she would like to discuss this with her family tonight before making a decision. Advised her we will follow up tomorrow. [facility] 01-25-2024 Note Occupational Therapy Occupational Therapy Evaluation Patient Name: Lizabeth Montanez : 1945 Today's Date: 01/25/2024 Time in: 08:50 Time out: 9:10 Intervention time breakdown: Eval 20 minutes Pt positioned in bedside chair appropriately at end of evaluation. Call light within reach of patient and nurse notified. General Subjective: Pt agreeable to OT eval. OT Diagnosis: Right TKA 01/23 affecting ADL and mobility independence. Patient Active Problem List Diagnosis Chronic atrial fibrillation (CMS/HCC) Disorder of cardiovascular system Left ventricular hypertrophy Obesity Palpitations Pulmonary hypertension (CMS/HCC) Warfarin therapy started Nonrheumatic mitral valve regurgitation Abnormal stress test Osteoarthritis of knee S/P total knee arthroplasty, left Hx of total knee arthroplasty, left COVID-19 Right knee pain Arthritis of right knee Past Medical History: Diagnosis Date Atrial fibrillation (CMS/HCC) COVID-19 Hypertension Left ventricular hypertrophy Nonrheumatic mitral valve regurgitation OA (osteoarthritis) Obesity Osteoarthritis of knee Palpitations PONV (postoperative nausea and vomiting) Pulmonary hypertension (CMS/HCC) Right knee pain Past Surgical History: Procedure Laterality Date CARDIOVERSION SECTION, LOW TRANSVERSE X3 KNEE ARTHROPLASTY Left TONSILLECTOMY History: Lizabeth Montanez is a 78 y.o. female who presents to [facility] for R TKA which was performed on 01/24/24. H/o Left TKA in past. Precautions Precautions LE Weight Bearing Status: Right, WBAT Medical Precautions: fall risk, IV Post-Surgical Precautions: Right TKA Pain Pain Assessment Pain Assessment: No/denies pain Pain Score: 0 - No pain Cognition Cognition Overall Cognitive Status: Within Functional Limits Arousal/Alertness: Appropriate responses to stimuli Orientation Level: Oriented X4 Following Commands: Follows all commands and directions without difficulty Communication: Intact General Assessment General Assessment Hearing: WNL Home Living Home Living Type of Home: House Lives With: Spouse Home Adaptive Equipment: Rollator, Cane Home Layout: Two level, Able to live on main level with bedroom/bathroom Home Access: Stairs to enter with rails Entrance Stairs-Number of Steps: 2 Bathroom Shower/Tub: Walk-in shower Bathroom Toilet: Standard Bathroom Equipment: Grab bars in shower, Shower chair with back, Bedside commode Prior Level of Function Prior Function Level of [place]: Independent with ADLs and functional transfers, Independent with homemaking with ambulation Prior Functional Mobility: Independent with cane ADL Assistance: Independent Homemaking Assistance: Independent 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) Static Sitting Balance Static Sitting Balance Static Sitting-Level of Assistance: Independent Dynamic Sitting Balance Dynamic Sitting Balance Dynamic Sitting Balance-Level of Assistance: Independent Static Standing Balance Static Standing Balance Static Standing-Level of Assistance: Close supervision Dynamic Standing Balance Dynamic Standing Balance Dynamic Standing Balance-Level of Assistance: Contact guard ADL ADL Eating Assistance: Independent Grooming Assistance: Independent Bathing Assistance: Moderate UE Dressing Assistance: Minimal (Due to IV) LE Dressing Assistance: Maximal Toileting Assistance with Device: Stand by Bed Mobility Bed Mobility Bed Mobility: (SBA sup-sit, pt able to manage RLE on own) Transfers Transfers Transfer: (CGA sit-stand from bed. Pt ambulated in halllway using RW with CGA. Reports some buckling of right LE.) Objective General Assessments Activity Tolerance Endurance: Stage III Vision - Basic Assessment Current Vision: No visual deficits Sensation Light Touch: No apparent deficits Proprioception Proprioception: No apparent deficits Coordination Movements are Fluid and Coordinated: Yes Hand Function Gross Grasp: Functional Coordination: Functional Extremity Assessments RUE Assessment RUE Assessment: Within Functional Limits (Right shldr 0-90 flex, arthritic changes. Leeft shlr 0-120 flex. Juan Jose UE strength 4+/5) LUE Assessment LUE Assessment: Within Functional Limits Outcome Assessments AM-PAC 6 Clicks Putting on and taking off regular lower body clothing?: A Lot (Mod/Max Assist) Bathing(Including washing,rinsing,drying)?: A Lot (Mod/Max Assist) Toileting, which includes using the toilet,bedpan,or urinal?: A Little (Min Assist/Contact Guard/Supervision) Putting on and taking off regular upper body clothing?: A Little (Min Assist/Contact Guard/Supervision) Taking care of personal grooming such as brushing teeth?: A Little (Min Assist/Contact Guard/Supervision) Eating meals?: None (Independent) Total Score OT [facility]: 17 Assessment/Plan OT Assessment OT Impairments: Decre (more content not included)... [facility] 01-25-2024 Note Physical Therapy Rosemary zavala Patient Name: Lizabeth Montanez Today's Date: 01/25/2024 Admit Date: 01/24/2024 Time In: 8:47 AM Time Out: 9:09 AM Cumulative minutes: 22 minutes Billed minutes: 22 minutes History of present illness Lizabeth Montanez is a 78 y.o. female who presents to [facility] for R TKA which was performed on 01/24/24. Pt reports she had her L knee done and tolerated the surgery very well, but states she postponed her R TKA too long. She has been using a tripod cane for mobility due to the pain. Pt reports she is concerned about going home as her just had an ablation and is not in the greatest health. She would prefer to go to a facility for a few days until she gets stronger as her will not be able to assist. She states her daughter could take a few days off, but she is a teacher and doesn't want to intrude as it is the end of the school year and its her busy time. Activity: per RN, ok to see patient. Patient agreeable to therapy. At end of session patient with call light in reach and resting comfortably in chair with ice pack hooked up. Pt was also provided with printed handout of information in regards to a TKA to educate pt on what to avoid doing. PMH/PSH per chart Patient Active Problem List Diagnosis Chronic atrial fibrillation (CMS/HCC) Disorder of cardiovascular system Left ventricular hypertrophy Obesity Palpitations Pulmonary hypertension (CMS/HCC) Warfarin therapy started Nonrheumatic mitral valve regurgitation Abnormal stress test Osteoarthritis of knee S/P total knee arthroplasty, left Hx of total knee arthroplasty, left COVID-19 Right knee pain Arthritis of right knee Past Medical History: Diagnosis Date Atrial fibrillation (CMS/HCC) COVID-19 Hypertension Left ventricular hypertrophy Nonrheumatic mitral valve regurgitation OA (osteoarthritis) Obesity Osteoarthritis of knee Palpitations PONV (postoperative nausea and vomiting) Pulmonary hypertension (CMS/HCC) Right knee pain Past Surgical History: Procedure Laterality Date CARDIOVERSION SECTION, LOW TRANSVERSE X3 KNEE ARTHROPLASTY Left TONSILLECTOMY Prior level of function Gait: ambulates household distances with quad cane and uses quad cane for community distances. . Transfers: independent Vision: glasses. Hearing: WNL. ADLs: independent with bathing, dressing, cooking, cleaning. Transportation: drives. Occupation: retired. Home set-up Patient lives in 2 Story Home with Stairs to Enter. Pt has 2 stairs with B handrail. Pt lives with her . Bedroom location: 1st Floor. Bathroom location: Main Bath 1st Floor. Bathroom equipment: toilet raiser, grab bars in shower, shower chair Support system , children, neighbors. Adaptive Equipment Mobility Devices Patient Has: Small Based Quad Cane and Rollator Main Mobility Device Used by Patient: Small Based Quad Cane Bracing Used by Patient: None Pain Pt has no complaints of pain at rest Orientation Patient alert and oriented x4.. Precautions IV, telemetry, weight bearing as tolerated to RLE , fall risk. Objective assessment Bed mobility Rolling: requires stand-by assist to roll in bed with use of bed rails. HOB was elevated Supine to sit: patient able to perform with stand-by assist. Patient requires assist with safety; HOB was elevated . Transfers Sit to stand: contact-guard assist Stand to sit: contact-guard assist Gait Patient ambulates 50 feet with rolling walker with contact guard assist. Gait deviations include: Reduced gait speed, Decreased step length BLE, Reduced step height, Reduced forward propulsion, Heavy reliance on device, Lacking heel strike, and Reduced toe/push off Stairs Pt completed 2 6 steps ascending and descending with CGA x2 for safety with use of B handrails. Balance Sitting static: patient able to sit independently with both feet planted on ground and without upper extremity assist. . Sitting dynamic: patient able to sit independently with both feet planted on ground and without upper extremity assist. . Standing static: patient able to stand independently with rolling walker with normal base of support. Posture Sitting: Forward Head, Rounded/protracted Shoulders, and PPT. Standing: Forward Head, Rounded/protracted Shoulders, and Kyphosis of Thoracic Spine. Strength Functional strength: see bed mobility and transfer comments above. LE Motion RLE LLE Hip Flexion 3+/5 4-/5 Knee Flexion 3/5 4/5 Knee Extension 3/5 4/5 ROM LE ROM: Pt demonstrates full AROM in LLE; pt demonstrates R knee flexion of approx 100*. Sensation Intact to light touch. Pt reports mild pain with mobility skills at this time. Mobility 6-Click T-Score: 6 Clicks (Mobility) Help from another person turning from your back to your side while in a flat bed without using bedrails: A little Help from an (more content not included)... [facility] 01-25-2024 Note ------ Attestation signed by Mynor Gallegos MD at 01/27/2024 5:43 AM I did not personally examine the patient. I discussed the case with the resident/fellow Riki Le. Teaching Physician's Revisions: none ------ Orthopaedic Surgery Orthopaedic Surgery Progress Note Date: 01/25/2024 Surgery: 01/24/2024 - TOTAL KNEE ARTHROPLASTY (R) SUBJECTIVE: NAEON. Patient resting comfortably in bed. She reports that she feels well this morning. Per nursing, bradycardia overnight. Patient denies any dizziness or lightheadedness. She denies any fevers, chills, chest pain, shortness of breath, nausea, vomiting. OBJECTIVE BP 109/76 (BP Location: Left arm, Patient Position: Lying) Pulse 57 Temp 36.8 ???C (98.2 ???F) (Oral) Resp 16 Ht 1.651 m (5' 5 ) Wt 109 kg (240 lb) SpO2 95% BMI 39.94 kg/m??? General: A/O x3, resting comfortably in bed, cooperative MSK: RLE -Right knee with dressing in place - Compartments soft / compressible - SILT in superficial peroneal, deep peroneal, sural, saph nerve dist - Motor function intact in femoral, tibial, deep peroneal, superficial peroneal dist - Brisk capillary refill Labs: Lab Results Component Value Date WBC 13.05 (H) 01/25/2024 HGB 8.3 (L) 01/25/2024 HCT 26.2 (L) 01/25/2024 MCV 99.2 (H) 01/25/2024 PLT 188 01/25/2024 Lab Results Component Value Date GLU 97 12/26/2022 CALCIUM 10.3 01/25/2024 NA 135 (L) 01/25/2024 K 5.0 01/25/2024 CO2 24 01/25/2024 CL 106 01/25/2024 BUN 51 (H) 01/25/2024 CREATININE 1.94 (H) 01/25/2024 Lab Results Component Value Date INR 1.34 (H) 01/16/2024 Imaging: Imaging for last 3 days: XR knee 1 or 2 views right Result Date: 01/25/2024 *Status post tricompartmental knee arthroplasty. No acute hardware complications. Approved by:Mann Parker01/25/2024 1:53 AM. I, Prsaanna Marlow,have reviewed the image(s) and agree with the findings in this report. Electronically signed: Prasanna Marlow. No CT results found for the past 3 days No MRI results found for the past 3 days ASSESSMENT: Lizabeth Montanez is a 78 y.o. female 1 Day Post-Op TOTAL KNEE ARTHROPLASTY (R). Overall doing well PLAN -Patient with some bradycardia overnight, hemoglobin dropped to 8.3. Will continue to monitor -Consult to medicine, recs appreciated Weightbearing as tolerated RLE Abx: 24hrs Ancef DVT ppx: Eliquis 5 twice daily PT/OT Pain control: Multimodal Vitamin D / Calcium supplementation Dressing: Do not remove dressing, may reinforce as necessary Riki Le MD Orthopaedic Surgery, PGY-1 Ortho Pager [phone] 01/25/24 8:16 AM I am available via [employer] 6a-6p. May contact the on-call resident with any concerns via the Orthopaedic pager at any time. [facility] 01-24-2024 Note Patient: Lizabeth nicolas Procedure Summary Date: 01/24/24 Room / Location: [facility] OPERATING ROOM 02 / [facility] Operating Room Anesthesia Start: 737 Anesthesia Stop: 1053 Procedure: TOTAL KNEE ARTHROPLASTY (Right: Knee) Diagnosis: Primary osteoarthritis of right knee (Primary osteoarthritis of right knee [M17.11]) Surgeons: Mynor Gallegos MD Responsible Provider: Wali Chavez MD Anesthesia Type: general ASA Status: 3 Anesthesia Type: general Vitals Value Taken Time BP 132/88 01/24/24 1407 Temp 36.5 ???C (97.7 ???F) 01/24/24 1055 Pulse 61 01/24/24 1438 Resp 13 01/24/24 1438 SpO2 100 % 01/24/24 1438 Vitals shown include unvalidated device data. Anesthesia Post Evaluation Patient location during evaluation: PACU Patient participation: complete - patient participated Level of consciousness: awake and sleepy but conscious Pain management: adequate Airway patency: patent Cardiovascular status: acceptable Respiratory status: acceptable Hydration status: acceptable Patient is hemodynamically stable and is able to be discharged from PACU per anesthesia protocol. No notable events documented. [facility] 01-24-2024 Note Patient: Lizabeth nicolas Procedure Summary Date: 01/24/24 Room / Location: [facility] OPERATING ROOM 02 / [facility] Operating Room Anesthesia Start: 737 Anesthesia Stop: Procedure: TOTAL KNEE ARTHROPLASTY (Right: Knee) Diagnosis: Primary osteoarthritis of right knee (Primary osteoarthritis of right knee [M17.11]) Surgeons: Mynor Gallegos MD Responsible Provider: Wali Chavez MD Anesthesia Type: general ASA Status: 3 Anesthesia Post Transport Note Transport to: PACU O2 Route: room air Patient Monitor: direct observation Transport: uneventful Patient condition is: stable [facility] 01-24-2024 Note Airway Date/Time: 01/24/2024 7:47 AM Urgency: elective General Information and Staff Patient location during procedure: OR Anesthesiologist: Wali Chavez MD Resident/ARTIFICIAL BREAST FABRICATOR/CAA: RUBENS Dougherty Performed: resident/ARTIFICIAL BREAST FABRICATOR/CAA Indications and Patient Condition Indications for airway management: anesthesia and airway protection Spontaneous Ventilation: absent Sedation level: deep Preoxygenated: yes Patient position: sniffing MILS not maintained throughout Mask difficulty assessment: 1 - vent by mask Final Airway Details Final airway type: endotracheal airway Successful airway: ETT Cuffed: yes Successful intubation technique: video laryngoscopy Facilitating devices/methods: intubating stylet Endotracheal tube insertion site: oral Blade: Martínez Blade size: #3 ETT size (mm): 7.5 Cormack-Lehane Classification: grade I - full view of glottis Placement verified by: chest auscultation and capnometry Measured from: lips ETT to lips (cm): 21 Number of attempts at approach: 1 Number of other approaches attempted: 0 [facility] 01-24-2024 Note Patient: Lizabeth nicolas Procedure Information Date/Time: 01/24/24729 Procedure: TOTAL KNEE ARTHROPLASTY (Right: Knee) - RICHARD [facility] NEPHEW NOTIFIED 01/20 PEDRO LUIS Location: [facility] OPERATING ROOM 02 / [facility] Operating Room Surgeons: Mynor Gallegos MD Relevant Problems Cardio (+) Chronic atrial fibrillation (CMS/HCC) (+) Nonrheumatic mitral valve regurgitation (+) Pulmonary hypertension (CMS/HCC) Clinical information reviewed: Tobacco Allergies Meds Med Hx Surg Hx OB Status Fam Hx Soc Hx Physical Exam Airway Mallampati: II TM distance: >3 FB Neck ROM: full Cardiovascular Rhythm: irregular Rate: normal Dental Comments: Missing multiple teeth Pulmonary Breath sounds clear to auscultation Abdominal (+) obese Other findings: Echo last year EF 55%, Mild to Mod MR, Mild AI Anesthesia Plan ASA 3 general (Adductor canal block) The patient is not a current smoker. Education provided regarding risk of obstructive sleep apnea. intravenous induction Postoperative administration of opioids is intended. Anesthetic plan and risks discussed with patient and spouse. Plan discussed with CAA. Additional Equipment Requests [facility] 01-16-2024 Note I met with the patie thee for pre-operative education and discharge planning prior to her joint replacement surgery. The patient would like to discharge to home following her release from the hospital. But she also stated she may like to go to a rehab if physical therapy recommends she should. She would HHC with [facility] if she discharges home but if she needs a rehab she would like to go to [place]. Patient is aware she will be evaluated after surgery to see if she is safe to discharge home or not. She already has a rolling walker, raised toilet seat and shower chair. [facility] 01-16-2024 Note Orthopedic Surgery Subjective Chief complaint: Chief Complaint Patient presents with Right Knee - Pain Pre-op R TKA 01/16/2024 Lizabeth Montanez is a 78 y.o. year old female presenting for follow up for her Right knee patient with long standing Right knee pain, patient had her Left knee replaced with excellent results she has significant Right knee pain and deformity , she is scheduled for Right TKA and is presenting today with the pre op medical clearance results. She is cleared by her pcp and She is accompanied by her daughter. Patient History Past Surgical History: Procedure Laterality Date CARDIOVERSION SECTION, LOW TRANSVERSE X3 KNEE ARTHROPLASTY Left TONSILLECTOMY Past Medical History: Diagnosis Date Atrial fibrillation (CMS/HCC) COVID-19 Hypertension Left ventricular hypertrophy Nonrheumatic mitral valve regurgitation OA (osteoarthritis) Obesity Osteoarthritis of knee Palpitations PONV (postoperative nausea and vomiting) Pulmonary hypertension (CMS/HCC) Right knee pain Review of Systems Respiratory: Negative for cough. Cardiovascular: Negative for chest pain. Genitourinary: Negative for dysuria and frequency. Musculoskeletal: Positive for arthralgias and gait problem. Skin: Negative for wound. Neurological: Negative for numbness. Objective General examination: Patient is alert oriented x3, not in distress, unlabored breathing. Normal mood, normal affect. Looks uncomfortable HEENT : Normocepahlic , atraumatic, no nasal discharge Eye exam: No conjunctivitis Cardivascular: Radial pulse 2+ normal rate and rhythm, warm well perfused extremities. Pulmonary: No wheezing or cough no laboured breathing. Abdominal exam: soft non tender abdomen. Skin: moist , warm , no rash, no bruising Psychiatristic: Normal mood and affect. Muscloskeletal exam : Exam of the Right knee showed intact skin, obvious varus deformity, ROM 10- 120 deg, no instability, ttp over the medial and lateral joint line, +ve crepitus, no DVT, intact N/V exam LLE. Imaging personally reviewed: X rays of the Right knee 3 showed Right knee advanced degenerative joint disease with bone on bone arthritis, significant deformity and osteophyte formation Assessment/Plan Lizabeth Montanez is a 78 y.o. year old female with severe Right knee osteoarthritis failed conservative treatment , patient is scheduled for Right TKA , patient is cleared for surgery by PCP and Cardiology , I personally reviewed the results of the pre op clearances in clinic today. Patient will hold the elliquis for 48 hours before the procedure. Discussed with the patient all the risks [...] proceed with surgery. Informed consent was obtained. PLAN: Patient is scheduled for Right TKA and is cleared for surgery. Patient's diagnosis significantly interferes with their ability to safely complete ADLs due to weakness and impaired mobility. Patient is safely able to use a rolling walker, raised toilet seat/shower chair. The use of this DME would greatly benefit the patient's ability to complete ADLs. [facility] 01-16-2024 Note Medications to take AM day of procedure with sips water only: Bisoprolol hydralazine Medication Hold instructions: Elquis x5 days NSAIDs (Motrin,Aleve): 5 days prior to procedure Vitamins/Supplements: 5 days prior to procedure Celebrex x7 days IF YOU ARE GOING HOME AFTER YOUR SURGERY OR PROCEDURE, FOR YOUR SAFETY, YOUR SURGERY WILL BE CANCELLED IF BOTH OF THE FOLLOWING ARE NOT AVAILABLE: An adult cpr ambulance driver over the age of 18, that can receive information about your care after surgery, and drive you home. A responsible adult to stay with you for 24 hours in case of an emergency. Can be same as above. The highest risk of complications is within the first 24 hours after sedation/anesthesia. Nothing to eat or drink after midnight the night before surgery. This includes gum, candy, mints, and lozenges. No alcohol, marijuana, or tobacco products including vaping for 24 hours. Please brush your teeth; don't swallow the toothpaste or water. If you use dentures, wear them but do not use paste. Please leave any other removable dental hardware at home. Do not put in contact lenses. Do not wear perfume, make-up, nail occitan, or lotions on the day of your surgery or procedure. Follow skin-prep/wipe instructions as below if required. Bring with you: *Insurance card *Photo ID *Medication list *Co-pay for visit/prescriptions If applicable: *Rescue inhalers *Green bracelet from lab *CPAP or BiPAP machine, if staying overnight *Any braces, splints, or equipment ordered preoperatively *Remote controls for implanted devices Leave at home: *Purse/Wallet/Roberts- unless needed for co-pay *Cell phone (can leave with family/friend or place in locker if needed) *Jewelry (including piercings and wedding bands) *If not possible, ask the person who is waiting with you to keep them Children under the age of 12 will not be allowed into patient care areas. We will call you between 3pm and 4pm the day before your surgery to give you an arrival time. If you do not receive this call, have any questions, or need to make any changes, please call [phone]. Notify your surgeon if you develop any illness such as a cold, cough, fever, sore throat or vomiting between now and your surgery. Thank you for entrusting us with your care. [facility] Surgical Services Team [facility] 01-07-2024 Note [facility]TP CARDIOLOGY PROGR ESS NOTE HPI [...] otherwise specified in HPI Visit Vitals BP 140/80 (BP Location: Left arm, Patient Position: Sitting, BP Cuff Size: Adult) Pulse 55 Resp 13 Ht 1.676 m (5' 6 ) Wt 92.4 kg (203 lb 9.6 oz) SpO2 95% BMI 32.86 kg/m??? OB Status Postmenopausal Smoking Status Never BSA 2.07 m??? Medications: Current Outpatient Medications on File Prior to Visit Medication Sig Dispense Refill acetaminophen (Tylenol) 325 mg tablet Take 2 tablets (650 mg) by mouth every 6 (six) hours if needed for mild pain (1-3 pain score) or moderate pain (4-7 pain score) for up to 290 doses. apixaban (Eliquis) 5 mg tablet Take 1 tablet (5 mg) by mouth in the morning and at bedtime. 180 tablet 3 bisoprolol (Zebeta) 10 mg tablet Take 10 mg by mouth in the morning. celecoxib (CeleBREX) 200 mg capsule Take 200 mg by mouth in the morning. ferrous sulfate 325 (65 Fe) MG tablet Take 65 mg by mouth with breakfast. hydrALAZINE (Apresoline) 100 mg tablet Take 50 mg by mouth in the morning and at bedtime. hydroCHLOROthiazide (HYDRODiuril) 50 mg tablet Take 50 mg by mouth once daily as directed. sacubitriL-valsartan (Entresto) 24-26 mg tablet Take 1 tablet by mouth in the morning and at bedtime. [DISCONTINUED] dilTIAZem (Cardizem) 60 mg immediate release tablet [...] values have been reviewed Patient states Dr. Rayo has been monitoring her labs annually and at last check her renal function was improved Assessment/Plan: Chronic atrial fibrillation (CMS/HCC) On Eliquis for stroke prophylaxis Heart rate well controlled continue bisprolol and diltiazem Continue current medication regimen Hypertensive disorder Continue current medication regimen Pulmonary hypertension (CMS/HCC) RVSP 76 mm Hg on echo RHC performed and RVSp was 38, mean PA was 25, and PCWP was 16. Palpitations Admits occasional palpitations but states is no worse than usual continue all medications Mild to mod MR On DENISE Continue current medical therapy Repeat echo in 1 year, or sooner as needed Plan of care discussed with patient. All questions were answered. Patient voices understanding and is agreeable with current plan. Patient was educated on red flag symptoms. Strict return precautions were provided. Patient verbalizes understanding Yeni Santiago MD [facility] 11-28-2023 Note Orthopedic Surgery Subjective Chief complaint: Chief Complaint Patient presents with Left Knee - Pain L TKA 11/28/23 Lizabeth Montanez is a 78 y.o. female presenting for a follow up of her left knee arthroplasty performed on 07/12/23. An x-ray was performed today. She states that everything is going well with her left knee and is not having any issues. She rates her pain as a 1-2/10 only with certain movements and is not taking anything for the pain. She had physical therapy with home health in addition to physical therapy with the hospital and has finished it. She still has pain in her right knee and states that eventually she will need to have that done as well. Patient with significant Right knee pain affecting her DLA and ability to walk she is satisfied with the with the results of the left total knee arthroplasty and wants her Right knee done. 10/26/23 Lizabeth Montanez is a 78 y.o. year [...] well perfused extremities Psych: Appropriate mood behavior Exam of the left knee showed well healed incision of previous surgery no redness hotness or inflammation, good ROM 0- 120 degrees, no instability, no swelling intact N/V exam Exam of the Right knee showed Right knee significant flexion deformity 10- 95 deg. Significant varus deformity. Ttp over the medial and lateral joint line, +ve crepitus intact N/V exam RLE , no DVT. Imaging personally reviewed: XR Bilateral knees 3 views obtained today in clinic 11/28/2023 showed Left Total knee arthroplasty with excellent alignment with no Hardware complications. Right knee degenerative joint disease with advanced osteoarthritis with bone one bone arthritis with almost no joint space Varus deformity, subchondral sclerosis and osteophyte formation. Assessment/Plan Lizabeth Montanez is a 78 y.o. year old female presenting for follow-up s/p left knee arthroplasty done on 07/12/23. Overall doing very well and satisfied with the results of surgery. Right knee advanced degenerative joint Disease failed conservative treatment and wants to discuss proceeding with Right TKA, discussed all the risks and benefits of surgery and the non surgical options Plan: Patient will be scheduled for Right TKA pending pre op medical clearance F/U in clinic with the results of the medical clearances. Mynor Gallegos MD As the teaching physician, I have personally performed or re-performed the history of present illness, physical exam and medical decision-making activities of the encounter and verified the medical student's documentation. I made pertinent changes as necessary to ensure accurate documentation. Additional Comments: none Gertrude Alan, MS3 [employer] [facility] [employer] 11/28/2023 [facility] 09-13-2023 Note Remains on Eliquis anticoagulation,Diltiazem- Rate is well-controlled Patient denied any bleeding tendencies [facility] 09-13-2023 Note Remained stable and blood pressure well-controlled today [facility] 09-13-2023 Note Mild to Mod MR on re cent DENISE Will continue to monitor with routine echocardiograms for any worsening in severity and routine follow-ups in office to monitor her symptoms [facility] 09-13-[address] able without any worsening symptoms or exacerbation [facility] 09-13-2023 Note UTP CARDIOLOGY PROGR ESS [...] CM 36.5 Low (more content not included)... [facility] 09-13-2023 Note Patient here for 6 [...] All other systems reviewed and are negative. [facility] 08-29-2023 Note Orthopedic Surgery Subjective Chief [...] and will discuss replacing the Right knee [facility] 07-25-2023 Note Orthopedic Surgery Subjective Chief [...] examined the patient today Mynor Gallegos MD [facility] 07-17-2023 Note Spoke with patient r egarding her recent discharge from [facility] (07/16) as well as her procedure with [...] if any questions/concerns arise in the meantime. [facility] 07-16-2023 Note Occupational Therapy Occupational Therapy [...] OT Discharge Recommendation Home with assist vs senior living OT Equipment Recommendations Shower chair General Pain [...] -up Where Assessed: From chair, Standing , severity of illness coordinator, Sock aid Comments: Pt was able to [...] Pt will complete (more content not included)... [facility] 07-16-2023 Note Advised by PT that p t did not do as well w/ stairs as hoped today and could benefit from SNF placement but they wouldn't be opposed to [facility] w/ family assistance. Discussed with pt who wants to discuss with her family first. Provided her a SNF list to review if needed. UPDATE 1:15PM- Followed up with pt/family at bedside and they have decided to discharge home with [facility] citing that she feels she has enough family support. Sent final AVS and discharge orders to [facility]. [facility] 07-16-2023 Note Physical Therapy Physical Therapy [...] guard, Minimum assistance, Moderate assistance (CGA with juan jose rails, Min. to Mod. A with unilateral rail) Quality of Stairs 1: Sig. slow pace. Pt. turns hips when descending steps despite cues. Pt. does report that left knee buckled during stair negotiation. Sig wt bearing through this FULFILLMENT REPRESENTATIVE's hand when giving assistance with use of [...] Other Activity Othe (more content not included)... [facility] 07-16-2023 Note ------ Attestation signed by Mynor Gallegos MD at 07/18/2023 10:18 PM I did not personally examine the patient. I discussed the case with the resident/fellow Pravin Dey. Teaching Physician's Revisions: none ------ Orthopaedic Surgery Orthopaedic Surgery Progress Note Date: 07/16/2023 Surgery: 07/12/2023 - ARTHROPLASTY, KNEE, TOTAL (L) SUBJECTIVE: KARTHIK, pain controlled, continues to deny CP/SOB. Pain [...] Dey MD Orthopaedic Surgery, PGY-2 Ortho Pager [phone] 07/16/23 7:36 AM I am available via [employer] 6a-6p. May contact the on-call resident with any concerns via the Orthopaedic pager at any time. [facility] 07-15-2023 Note Occupational Therapy Occupational Therapy [...] During mobility task from bathroom to recliner, communications writer notes L knee buckle. Pt was [...] on proper hand placement and ambulation/gait techniques. Retirement Actuary notes L knee buckle x1, pt was [...] functional tasks a (more content not included)... [facility] 07-15-2023 Note Hospital Medicine Discharge Summary [...] presents as a planned admission to the [facility] for a left total knee arthroplasty. [...] 07/25/2023 2:30 PM Mynor Gallegos MD ORTHO MPORT 08/21/2023 9:00 AM Lilia Serrato NP [facility] Your medication list START taking these [...] HYDROcodone-acetaminophen 5-325 mg tablet Commonly known as: [place] Take 1 tablet by mouth every 6 [...] Medications These medications were sent to [facility] - [place], [place] - [address] [place] [address] [address] apixaban 5 mg tablet docusate sodium 100 mg tablet doxycycline 100 mg capsule HYDROcodone-acetaminophen 5-325 mg tablet Lizabeth is allergic to penicillins. Disposition: Home-Health Care [facility] Discharge Condition: Good Code Status: Full Code Diagnostic Results Hematology: Results from last 7 days Lab Units 07/15/23 0515 07/14/23 0432 WBC AUTO 10*3/uL 8.66 11.57* HEMOGLOBIN g/dL 7.5* 7.7* HEMATOCRIT % 24.1* 24.5* MCV fL 104.3* 102.9* PLATELETS AUTO 10*3/uL 151 148* Chemistry: Results from last 7 days Lab Units 07/15/23 0515 07/14/2343107/13/23 0545 SODIUM mmol/L 133* 135* 138 POTASSIUM [...] . General: Alert (more content not included)... [facility] 07-15-2023 Note Advised by medical mitali romero that pt wishes to discharge home instead of SNF. Discussed with pt who is in agreement but would like to work with therapy one more time today and also cited that her dgtr will be staying w/ her for 1 week after discharge. Pt requested [facility]. Referral sent. [facility] 07-15-2023 Note ------ Attestation signed by Mynor Gallegos MD at 07/18/2023 10:19 PM I did not personally examine the patient. I discussed the case with the resident/fellow Pravin Dey. Teaching Physician's Revisions: none ------ Orthopaedic Surgery Orthopaedic Surgery Progress Note Date: 07/15/2023 Surgery: 07/12/2023 - ARTHROPLASTY, KNEE, TOTAL (L) SUBJECTIVE: KARTHIK, pain controlled, continues to deny CP/SOB. Pain [...] Dey MD Orthopaedic Surgery, PGY-2 Ortho Pager [phone] 07/15/23 7:55 AM I am available via [employer] 6a-6p. May contact the on-call resident with any concerns via the Orthopaedic pager at any time. [facility] 07-14-2023 Note Occupational Therapy Occupational Therapy [...] Dressing (educated patient on LB dressing utilizing severity of illness coordinator and sock aide, patient notes has severity of illness coordinator, long shoe horn and sock aide) Toileting [...] from bedside chair (more content not included)... [facility] 07-14-2023 Note Hospital Medicine Daily Progress Note - 07/14/2023 12:59 PM; Room: [facility]- Admission: 07/12/2023 8:22 AM; Length of stay: 0 days THE HOSPITALIST TEAM PREFERS TO USE [employer] CHAT FOR COMMUNICATION 7AM-7PM. IF I DO NOT RESPOND WITHIN 15 MINUTES, PLEASE PAGE ME/CALL THROUGH THE MEDICINE TECHNOLOGIST. FROM 7PM-7AM, PLEASE PAGE [phone](COVR) Code Status: Full Code Discharge Destination: correction facility Discharge planning: pending placement Overview Patient [...] presents as a planned admission to the [facility] for a left total knee arthroplasty. #S/p L TKA on 07/12 -Patient s/p left total knee arthroplasty with Dr. Gallegos on 07/12/2023 -Eliquis started by orthopedic team postoperatively and pain control has been ordered. Monitor hgb. Had small drop today from 8.4->7.7. Transfuse for Hgb <7. -Weightbearing as tolerated -PT/OT recommending SNF. consult for placement. #Atrial Fibrillation, Continue home [...] Results from last 7 days Lab Units 07/14/23 0432 07/13/23 0545 WBC AUTO 10*3/uL 11.57* 9.44 HEMOGLOBIN g/dL 7.7* 8.4* HEMATOCRIT % 24.5* 27.0* MCV fL 102.9* 104.7* PLATELETS AUTO 10*3/uL 148* 147* Chemistry: Results from last 7 days Lab Units 07/14/23 0432 07/13/23 0545 SODIUM mmol/L 135* 138 POTASSIUM mmol/L 4.7 4.5 CHLORIDE mmol/L 109* 111* CO2 mmol/L 21 19* BUN mg/dL 38* 34* CREATININE mg/dL 1.66* 1.47* GLUCOSE mg/dL 100 167* CALCIUM mg/dL 9.4 10.0 No lab exists for component: AFIO2, APHT, APCOT, APOT, ATCO2, CK, ALB, IBILI Results from last 7 days Lab Units 07/12/23 (more content not included)... [facility] 07-14-2023 Note [facility] reports patient' s SNF choices are [facility]. Referral sent. Patient will need accepting facility and insurance precert. OTM will continue to follow. [facility] 07-14-2023 Note Physical Therapy Physical Therapy [...] Pain Orientation Left Pain Interventions Medication (See NOV);Cold pack;Elevated Cognition Overall Cognitive Status WFL Arousal/Alertness [...] in reach, RN aware. PT Assessment PT Assessment/FULFILLMENT REPRESENTATIVE Summary Pt able to demonstrate improved activity [...] of assist 1 assist PT Discharge Recommendations senior living facility placement Outcome Assessments 6 Cl (more content not included)... [facility] 07-14-2023 Note ------ Attestation signed by [...] Puente MD Orthopaedic Surgery, PGY-2 Ortho Pager [phone] 07/14/23 8:34 AM I am available via [employer] 6a-6p. May contact the on-call resident with any concerns via the Orthopaedic pager at any time. [facility] 07-14-2023 Note Occupational Therapy Occupational Therapy Evaluation Patient Name: Lizabeth Montanez : 1945 Today's Date: 07/14/2023 Time in: 0853 Time out: 0921 Surgery type: L TKA Surgery date: 07/12/23 [...] Level of Function Prior Function Level of [place]: Independent with ADLs and functional transfers, Independent [...] Device 2: rolling (more content not included)... [facility] 07-13-2023 Note [facility] Medicine Daily Progress Note - 07/13/2023 2:23 PM; Room: [address] [place] [address] Admission: 07/12/2023 8:22 AM; Length of stay: 0 days THE HOSPITALIST TEAM PREFERS TO USE [employer] CHAT FOR COMMUNICATION 7AM-7PM. IF I DO NOT RESPOND WITHIN 15 MINUTES, PLEASE PAGE ME/CALL THROUGH THE MEDICINE TECHNOLOGIST. FROM 7PM-7AM, PLEASE PAGE [phone](COVR) Code Status: Full Code Discharge Destination: correction facility Discharge planning: pending placement vs improvement Overview Patient is seen for evaluation and management of L TKA. Donald Montanez was seen and examined at bedside. [...] presents as a planned admission to the [facility] for a left total knee arthroplasty. #S/p L TKA on 07/12 -Patient s/p left total knee arthroplasty with Dr. Gallegos on 07/12/2023 -Eliquis started by orthopedic team postoperatively and pain control has been ordered. Monitor hgb. -Weightbearing as tolerated -PT/OT recommending SNF. consult for placement. #Atrial Fibrillation, Continue home [...] No results fo (more content not included)... [facility] 07-13-2023 Note Physical Therapy Physical Therapy Evaluation Patient Name: Lizabeth Montanez : 1945 Today's Date: 07/13/2023 Time Calculation Start Time 0820 Stop Time 0848 Time Calculation (min) 28 min PT Evaluation Time Entry PT Evaluation (Moderate) Time Entry 28 PT Discharge Recommendations: senior living facility placement (vs Home PT with 24 [...] Level of Function Prior Function Level of [place]: Independent with ADLs and functional transfers, Independent [...] Fluid and Coordina (more content not included)... [facility] 07-13-2023 Note ------ Attestation signed by [...] remove dressing, may reinforce as necessary Lan Galvan MD Orthopaedic Surgery, PGY-1 Ortho Pager [phone] 07/13/23 8:50 AM I am available via [employer] 6a-6p. May contact the on-call resident with any concerns via the Orthopaedic pager at any time. [facility] 07-12-2023 Note Patient: Lizabeth nicolas Procedure Summary Date: 07/12/23 Room / Location: [facility] OPERATING ROOM 02 / [facility] Operating Room Anesthesia Start: 1010 Anesthesia [...] no known notable events for this encounter. [facility] 07-12-2023 Note Hospital Medicine History and Physical 07/12/2023 6:41 PM THE HOSPITALIST TEAM PREFERS TO USE [employer] CHAT FOR COMMUNICATION 7AM-7PM. IF I DO NOT RESPOND WITHIN 15 MINUTES, PLEASE PAGE ME/CALL THROUGH THE MEDICINE TECHNOLOGIST. FROM 7PM-7AM, PLEASE PAGE [phone](COVR) Chief Complaint S/P L TKA History of Present Illness Lizabeth Montanez is an 78 y.o. female who came from home with pastMedical history of atrial fibrillation, hypertension, LVH, pulmonary hypertension presents as a planned admission to the [facility] for a left total knee arthroplasty. [...] left knee 04/16/2023 Palpitations 08/18/2013 Pulmonary hypertension ([facility]) 06/15/2013 Obesity 03/24/2010 Hypertensive disorder 03/15/2008 Chronic atrial fibrillation ([facility]) 03/09/2008 Left ventricular hypertrophy 03/09/2008 Abnormal stress test 12/20/2022 Nonrheumatic mitral valve regurgitation 11/07/2022 Assessment and Plan Lizabeth Montanez is an 78 y.o. female who came from home with pastMedical history of atrial fibrillation, hypertension, LVH, pulmonary hypertension presents as a planned admission to the [facility] for a left total knee arthroplasty. [...] this hospital stay by a member of Health system Medicine. Past Medical History Past Medical History: Diagnosis Date Atrial fibrillation (CMS/HCC) Hypertension Left ventricula (more content not included)... [facility] 07-12-2023 Note Physical Therapy Name: Lizabeth Montanez Date of : 1945 Today's Date: 07/12/23 Pt is unable to be seen for therapy at this time secondary to Per RN, pt continues to be too lethargic for therapy evaluation at this time . Will check back and complete therapy session as appropriate. Check No Charge Time attempted: 1600 Yvonne Acevedo, PT, DPT [facility] 07-12-2023 Note Occupational Therapy Name: Lizabeth Montanez Date of : 1945 Today's Date: 07/12/23 Pt is unable to be seen for therapy at this time. Per RN, pt continues to be too lethargic for therapy evaluation at this time. Will check back and complete therapy session as appropriate and able. Check No Charge Time attempted: 1600 [facility] 07-12-2023 Note Airway Date/Time: 07/12/2023 10:23 AM Urgency: elective Airway not difficult General Information and Staff Patient location during procedure: OR Anesthesiologist: Eris Valverde MD Resident/ARTIFICIAL BREAST FABRICATOR/CAA: RUBENS Terrazas Performed: resident/ARTIFICIAL BREAST FABRICATOR/RUBENS Indications and Patient Condition Indications for airway [...] 1 Number of other approaches attempted: 0 [facility] 07-12-2023 Note Peripheral Block Patient location during procedure: pre-op Start time: 07/12/2023 9:55 AM End time: 07/12/2023 10:15 AM Reason for block: at surgeon's request and post-op pain management Staffing Performed: resident/ARTIFICIAL BREAST FABRICATOR/RUBENS Anesthesiologist: Eris Valverde MD Resident/ARTIFICIAL BREAST FABRICATOR: Fermin Miller MD Preanesthetic Checklist Completed: patient [...] rate change: no Slow fractionated injection: yes [facility] 07-12-2023 Note Peripheral Block Patient location during procedure: pre-op Start time: 07/12/2023 9:53 AM Reason for block: primary anesthetic, at surgeon's request and post-op pain management Staffing Performed: resident/ARTIFICIAL BREAST FABRICATOR/RUBENS Anesthesiologist: Eris Valverde MD Resident/ARTIFICIAL BREAST FABRICATOR: Fermin Miller MD Preanesthetic Checklist Completed: patient [...] pain: immediately resolved Heart rate change: no [facility] 07-12-2023 Note Patient: Lizabeth nicolas Procedure Information Date/Time: 07/12/23 1000 Procedure: ARTHROPLASTY, KNEE, TOTAL (Left: Knee) - BIOMET NOTIFIED 07/04 Location: [facility] OPERATING ROOM 02 / [facility] Operating Room Surgeons: Mynor Gallegos MD Relevant Problems Cardio (+) Chronic atrial fibrillation (CMS/HCC) (+) Hypertensive disorder (+) Nonrheumatic mitral valve regurgitation (+) Pulmonary hypertension (CMS/HCC) 06/06/[address] Santiago: Moderate risk for procedure and can proceed without additional testing. 06/24/[address] Rayo DENISE 01/02/23: Left Ventricle: The left ventricle [...] risks discussed with patient. Additional Equipment Requests [facility] 06-27-2023 Note Orthopedic Surgery Subjective Pre-op [...] was obtained. -06/06/[address] Santiago: Moderate risk for procedure and can proceed without additional testing. 06/24/[address] Rayo. -Left total knee arthroplasty 07/12/2023 Riki Le [...] be an additional personal documentation from me. [facility] 06-27-2023 Note 06/06/2023 Cardiac Benedict arance from Dr. Santiago: Moderate risk for procedure and can proceed without additional testing. 06/24/[address] Rayo. [facility] 06-26-2023 Note Pt has total knee durbin rgery scheduled for 07/12. SW will follow with DME orders and HHC as needed. [facility] 06-26-2023 Note Spoke with patient r egarding pre-operative education and discharge planning for her upcoming procedure with Dr. Gallegos (07/12) and patient states that she would prefer to go home at discharge from [facility]. Patient states that her will provide support [...] additional questions/concerns that arise in the meantime. [facility] Summary Purpose Family History No Family History Records FoundNo Family History Records FoundNo Family History Records FoundNo Family History Records Found Advance Directives No Advanced Directives Records FoundNo Advanced Directives Records FoundNo Advanced Directives Records FoundNo Advanced Directives Records Found Additional Source Comments INFORMATION SOURCE (unrecogn ized section and content) DATE CREATED AUTHOR 03/24/2018 [facility] DATE CREATED AUTHOR AUTHOR'S ORGANIZ ATION 03/26/2018 [facility] DATE CREATED AUTHOR AUTHOR'S ORGANIZ ATION 03/08/2023 [facility] DATE CREATED AUTHOR AUTHOR'S ORGANIZ ATION 05/16/2024 [facility] FOR RECORDS PERTAINING TO PATIENTS WHO [...] BE BASED ON THE PRIMARY CLINICAL RECORDS. [employer] provides no warranty or guarantee of the accuracy or completeness of information in this document.
--- NOTE | 2024-05-29 06:53 | MM_ITS ---
Patient Name: JELLY MONTANEZ MR#: [id number] : 1945 Exam Date: 05/29/2024 Ordering Doctor: DR Malcolm Bone . RADIOLOGY REPORT PROCEDURE: MM TOMOSYNTHESIS SCREENING BI COMPARISON: MM TOMOSYNTHESIS SCREENING BI, 05/28/2023. MG MAMM SCREEN 3D HOMERO CAD, 05/25/2022. MG MAMM SCREEN 3D HOMERO CAD, 04/28/2021. MG MAMM HOMERO SCRN W CAD DIG, 06/26/2013. INDICATIONS: Screening Calculator Name NCI Breast Cancer Risk Assessment Tool 5 Year Breast Cancer Risk 1.90% Lifetime Breast Cancer Risk 3.40% Personal Breast Cancer No Personal Ovarian Cancer No Treatments None Family Cancers Grandmother-paternal with breast cancer at age 60. LOCATION: [facility] BREAST COMPOSITION: The breasts are heterogeneously dense,which may obscure small masses. FINDINGS: DIAGNOSTIC CATEGORY 1--NEGATIVE. RIGHT BREAST: No significant suspicious finding. No significant change has occurred. LEFT BREAST: No significant suspicious finding. No significant change has occurred. RECOMMENDATIONS: ROUTINE MAMMOGRAM AND CLINICAL EVALUATION IN 12 MONTHS. PLEASE NOTE: A NORMAL MAMMOGRAM DOES NOT EXCLUDE THE POSSIBILITY OF BREAST CANCER. A CLINICALLY SUSPICIOUS PALPABLE LUMP SHOULD BE BIOPSIED. Dictated by: Devaughn Richards M.D. on 06/03/2024 at 13:57 Approved by: Devaughn Richards M.D. on 06/03/2024 at 14:08
== END 2024-05-29 06:47 | disposition home or self-care (01) ==
LOC: MAMMO 06:47
PROVIDERS: PCP Family Medicine; Visit Provider Family Medicine
DX: Z12.31 Encounter for screening mammogram for malignant neoplasm of breast (principal)
CPT/HCPCS: 77063; 77067

== ENCOUNTER 2024-07-23 14:21 | Emergency (ER) | payer MEDICARE, SELFPAY ==
[2024-07-23 14:35] VITALS: BP 178/90; PULSE 72; TEMP 36.6; O2SAT 97; BMI 30.7
--- NOTE | 2024-07-23 14:41 | XR_ITS ---
The [address] [address] Patient Name: JELLY MONTANEZ MRN: [id number] date: 1945 Sex: F Assigned Patient Location: ED.MAIN Current Patient Location: ER Accession/Order Number: [id number] Exam Date: 07/23/2024 15:20 Report Date: 07/23/2024 15:53 At the request of: MARYANNE NAIDU Procedure: XR knee RT 3V PROCEDURE: XR knee RT 3V HISTORY: pain after falling COMPARISON: None. FINDINGS: BONES:Total knee replacement without visible hardware fracture loosening. No bone fracture dislocation. SOFT TISSUES:No visible soft tissue swelling. EFFUSION:Positioning limits evaluation, but I suspect at least a small joint effusion. OTHER: Negative. XR/XR knee RT 3V IMPRESSION: 1. No acute bone abnormality. 2. Small joint effusion is suspected. Electronically authenticated by: SHILA FALCON Date: 07/23/2024 15:53
--- OUTSIDE RECORDS SUMMARY | 2024-07-23 14:46 | XMS_ITS | CCD ---
Author Organization [facility] Care Team Providers Care Ben Day Artist Name Role Phone PHYSICIAN, DEFAULT Unavailable Unavailable [...] HOY ., DR PARISI Primary Care Unavailable ZIEBER, DR SHILA Serrato Consulting Unavailable ALGHOTHANI, MOHAMAD Admitting Unavailable HOY ., DR PARISI Primary Care Unavailable ALGHOTHANI, MOHAMAD Attending Unavailable ALGHOTHANI, MOHAMAD Consulting Unavailable HOY ., DR PARISI Admitting Unavailable HOY ., DR PARISI Primary Care Unavailable HOY ., DR PARISI Attending Unavailable HOY ., DR PARISI Consulting Unavailable PAMELA PECK Consulting Unavailable AKIRA, MYNOR Referring Unavailable AKIRA, MYNOR Referring Unavailable AKIRA, MYNOR Referring Unavailable ALGHOTHANI, MOHAMAD Attending Unavailable AKIRA, MYNOR Attending Unavailable ALGHOTHANI, MOHAMAD Attending Unavailable AKIRA, MYNOR Referring Unavailable AKIRA, MYNOR Admitting Unavailable AKIRA, MYNOR Attending Unavailable AKIRA, MYNOR Attending Unavailable AKIRA, MYNOR Attending Unavailable AKIRA, MYNOR Attending Unavailable AKIRA, MYNOR Attending Unavailable AKIRA, MYNOR Attending Unavailable ROJELIORIMA Randolph Attending Unavailable AKIRA, MYNOR Referring Unavailable AKIRA, MYNOR Referring Unavailable Allergies Allergy Classification Reported Allergen(s) Allergy Type Date of Onset Reaction(s) Facility (4 sources) Penicillins; Translations: [PENICILLINS] Drug allergy (disorder) 08-10-2009 [facility] [place] Repository Problems Active Problems Problem Classification Problem Date Documented Date Episodic/Chronic Chronic kidney disease (2 sources) Chronic kidney disease, stage 1; Translations: [Chronic kidney disease, unspecified] Onset: 12-07-2022 Chronic Congestive heart failure; nonhypertensive (1 source) Unspecified diastolic (congestive) heart failure; Translations: [UNSPECIFIED DIASTOLIC HEART FAILURE] Onset: 10-31-2022 Chronic Coronary atherosclerosis and other heart disease (3 sources) Atherosclerotic heart disease of [place] coronary artery without angina pectoris; Translations: [ASHD [place] CA W/O ANGINA PECTORIS] Onset: 10-31-2022 Chronic [...] Chronic Osteoarthritis (2 sources) Unilateral primary osteoarthritis, right knee; Translations: [Unilateral primary osteoarthritis, right knee] Onset: 01-24-2024 Chronic Osteoporosis (4 sources) Age-related osteoporosis without [...] Range Facility Office Visiton 05-15-2024 Follow-up visit [id number] Mignon Montanez 1945 Date Provider Department Center 05/15/2024 3848-YENI UGALDE Family History Problem Relation Age of Onset Other Mother Other Mother Heart attack Father's Sister Family Status - Relation Status Age at Mother Father's Sister Level of Service:63077 CT OFFICE/OUTPATIENT ESTABLISHED LOW MDM 20 MIN Reason for Visit and Comments: Follow-up [972013] - Follow up Echo Concerns: No cardiac symptoms/concerns [facility] 36on 04-01-2024 36 Regarding echo performed on 03/27/2024: JESSICA Gonzalez MA Echo about the same as previous- with noted mild to mod mitral regurg and mod Aortic valve regurg and normal LV function If she notes worsening SOB, palpitations, weight gain/water retention she needs to call office Spoke with patient and made here aware. She verbalized understanding. [facility] Office Visiton 03-12-2024 Follow-up visit [id number] Mignon Montanez 1945 Provider Department Center 03/12/2024 293-MYNOR GALLEGOS MP ORTHO MPORTHO Family History Problem Relation Age of Onset Other Mother Other Mother Heart attack Father's Sister Family Status - Relation Status Age at Mother Father's Sister Level of Service:88631 CT POSTOP FOLLOW UP VISIT RELATED TO ORIGINAL PX Reason for Visit and Comments: Pain [136] - R tka follow up [facility] Office Visiton 02-06-2024 Follow-up visit [id number] Mignon Montanez 1945 F Date Provider Department Center 02/06/2024 293-MYNOR GALLEGOS MP ORTHO MPORTHO Family History Problem Relation Age of Onset Other Mother Other Mother Heart attack Father's Sister Family Status - Relation Status Age at Mother Father's Sister Level of Service:22011 CT POSTOP FOLLOW UP VISIT RELATED TO ORIGINAL PX (GC) Reason for Visit and Comments: Pain [136] - 1st post op R TKA Post-op [483] - 1st post op R TKA [facility] 36on 02-03-2024 36 I spoke to the patie nt to see how she is doing after her recent surgery. Ms Montanez stated she is doing well and her pain is manageable with medication. She is taking all the medication she was prescribed at discharge. She denies any redness, drainage or major swelling. She has been working with [facility] physical therapy. She has a post op appointment on February 05 at 8. She had no questions or concerns. [facility] 36 [facility] RN Karmen NOTIFIED NOT TO REMOVE THE DRESSING, HE V/U//[facility] 36on 01-31-2024 36 Anel ISRAEL notified t he nurse of dressing change instructions. I attempted to call the patient to complete a dishcarge follow up call and relay dressing orders but patient;s phone was busy. [facility] 36 Ortega, from [facility] called requesting clarification on patients wound vac instructions. They would like to know if they should remove the vac before her follow up visit. Discharge summary says :Dressing Removal: Do not remove before follow-up visit Follow up visit scheduled for 02/12. Please call with instructions on care. Number to return call [phone]. [facility] BASIC METABOLIC PANELon 05-0 Anion gap [Moles/Vol] 7 mmol/L Normal 7-20 [facility] Comment on above: Performed By: #### L [id number] ####[facility] ([facility])[address] [place] [address] Calcium [Mass/Vol] 10.8 mg/dL High 8.6-10.3 [facility] Comment on above: Performed By: #### L [id number] ####[facility] ([facility])[address] [place] [address] Chloride [Moles/Vol] 105 mmol/L Normal 98-107 [facility] Comment on above: Performed By: #### L [id number] ####[facility] ([facility])[address] [place] [address] CO2 [Moles/Vol] 27 mmol/L Normal 21-31 [facility] Comment on above: Performed By: #### L [id number] ####[facility] ([facility])[address] [place] [address] Creatinine [Mass/Vol] 1.45 mg/dL High 0.60-1.20 [facility] Comment on above: Performed By: #### L [id number] ####[facility] ([facility])[address] [place] [address] GLOMERULAR FILTRATION RATE ML/MIN/1.73 SQ M.PREDICTED 37.2 mL/min/1.73m*2 Low >60.0 [facility] Comment on above: Result Comment: [facility]???s estimated glomerular filtration rate (eGFR) will [...] of individuals. Performed By: #### L [id number] ####[facility] ([facility])[address] [place] [address] Glucose [Mass/Vol] 88 mg/dL Normal 70-100 [facility] Comment on above: Performed By: #### L [id number] ####[facility] ([facility] [place] [address] Potassium [Moles/Vol] 4.4 mmol/L Normal 3.5-5.1 [facility] Comment on above: Performed By: #### L [id number] ####[facility] ([facility] [place] [address] Sodium [Moles/Vol] 135 mmol/L Low 136-145 [facility] Comment on above: Performed By: #### L [id number] ####[facility] ([facility])[address] [place] [address] Urea nitrogen [Mass/Vol] 45 mg/dL High 7-25 [facility] Comment on above: Performed By: #### L [id number] ####[facility] ([facility])[address] [place] [address] UREA NITROGEN/CREATININE (MASS RATIO) IN SER/PLAS 31.0 [facility] Comment on above: Performed By: #### L [id number] ####[facility] ([facility])[address] [place] [address] CBC WITH AUTO DIFFERENTIALon 01-30-2024 Basophils (Bld) [#/Vol] 0.03 10*3/uL Normal 0.00-0.20 [facility] Comment on above: Performed By: #### L [id number] #### [facility] ([facility] [address] [place] [address] Basophils/100 WBC (Bld) 0.3 % Normal 0.0-1.0 [facility] Comment on above: Performed By: #### L [id number] #### [facility] ([facility] [address] [place] [address] Eosinophils (Bld) [#/Vol] 0.19 10*3/uL Normal 0.00-0.50 [facility] Comment on above: Performed By: #### L [id number] #### [facility] ([facility] [address] [place] [address] Eosinophils/100 WBC (Bld) 2.1 % Normal 0.0-6.0 [facility] Comment on above: Performed By: #### L [id number] #### [facility] ([facility] [address] [place] [address] Erythrocyte distribution width (RBC) [Ratio] 13.0 % Normal 11.5-15.0 [facility] Comment on above: Performed By: #### L [id number] #### [facility] ([facility] [address] [place] [address] ERYTHROCYTE MEAN CORPUSCULAR HEMOGLOBIN CONCENTRATION (G/DL) BY AUTOMATED 31.5 g/dL Low 32.0-35.0 [facility] Comment on above: Performed By: #### L [id number] #### [facility] ([facility] [address] [place] [address] Hematocrit (Bld) [Volume fraction] 24.8 % Low 36.0-48.0 [facility] Comment on above: Performed By: #### L [id number] #### [facility] ([facility]) [address] [place] [address] Hemoglobin (Bld) [Mass/Vol] 7.8 g/dL Low 12.0-15.0 [facility] Comment on above: Performed By: #### L [id number] #### [facility] ([facility]) [address] [place] [address] Immature granulocytes (Bld) [#/Vol] 0.09 10*3/uL Normal 0.00-0.20 [facility] Comment on above: Performed By: #### L [id number] #### [facility] ([facility]) [address] [place] [address] Immature granulocytes/100 WBC (Bld) 1.0 % Normal 0.0-1.0 [facility] Comment on above: Performed By: #### L [id number] #### [facility] ([facility]) [address] [place] [address] Lymphocytes (Bld) [#/Vol] 0.68 10*3/uL Low 1.20-4.00 [facility] Comment on above: Performed By: #### L [id number] #### [facility] ([facility]) [address] [place] [address] Lymphocytes/100 WBC (Bld) 7.5 % Low 20.0-45.0 [facility] Comment on above: Performed By: #### L [id number] #### [facility] ([facility]) [address] [place] [address] MCH (RBC) [Entitic mass] 31.3 pg Normal 27.0-33.0 [facility] Comment on above: Performed By: #### L [id number] #### [facility] ([facility]) [address] [place] [address] MCV (RBC) [Entitic vol] 99.6 fL High 82.0-98.0 [facility] Comment on above: Performed By: #### L [id number] #### [facility] ([facility]) [address] [place] [address] Monocytes (Bld) [#/Vol] 1.15 10*3/uL High 0.10-1.00 [facility] Comment on above: Performed By: #### L [id number] #### [facility] ([facility]) [address] [place] [address] Monocytes/100 WBC (Bld) 12.6 % High 5.0-12.0 [facility] Comment on above: Performed By: #### L [id number] #### [facility] ([facility]) [address] [place] [address] Neutrophils (Bld) [#/Vol] 6.97 10*3/uL Normal 1.60-7.60 [facility] Comment on above: Performed By: #### L [id number] #### [facility] ([facility]) [address] [place] [address] Neutrophils/100 WBC (Bld) 76.5 % High 40.0-72.0 [facility] Comment on above: Performed By: #### L [id number] #### [facility] ([facility]) [address] [place] [address] NRBC (PER 100 WBCS) BY AUTOMATED COUNT 0.0 % Normal 0 [facility] Comment on above: Performed By: #### L [id number] #### [facility] ([facility]) [address] [place] [address] PLATELETS (10*3/UL) IN BLOOD AUTOMATED COUNT 245 10*3/uL Normal 150-400 [facility] Comment on above: Performed By: #### L [id number] #### [facility] ([facility]) [address] [place] [address] RBC (Bld) [#/Vol] 2.49 10*6/uL Low 3.80-5.00 [facility] Comment on above: Performed By: #### L [id number] #### [facility] ([facility]) [address] [place] [address] WBC (Bld) [#/Vol] 9.11 10*3/uL Normal 4.00-10.60 [facility] Comment on above: Performed By: #### L [id number] #### [facility] ([facility]) [address] [place] [address] DSon 01-30-2024 DS --- Attestation signed by Mynor Gallegos MD at 02/20/2024 8:07 AM I did not personally examine the patient. I discussed the case with the resident/fellow Hailee Ortez MD Teaching Physician's Revisions: none Orthopaedic Discharge Summary Patient ID: Lizabeth Montanez [id number] 78 y.o. 1945 Admit date: 01/24/2024 Discharge date and time: 01/30/2024 3:32 PM Admitting Physician: Mynor Gallegos MD Discharge Physician: Mynor Gallegos MD Admission Diagnoses: Primary osteoarthritis of right knee [M17.11] Arthritis of right knee [M17.11] Discharge Diagnoses: Primary osteoarthritis of right knee [M17.11] Arthritis of right knee [M17.11] Surgical procedure: TOTAL KNEE ARTHROPLASTY 37862 - CT ARTHRP KNE CONDYLE&PLATU MEDIAL&LAT COMPARTMENTS Disposition: Home [...] Medications These medications were sent to [facility] - [place], [place] - [address] [place] [address] [place] [address], [facility] [address] allopurinol 100 mg tablet apixaban 2.5 mg [...] Ruslan Ortez MD in 10-14 days at [facility] [phone] Hospital Course: Lizabeth Montanez was admitted on 01/24/2024 and underwent the aforementioned procedure. Post-operatively, she had adequate pain control and physical therapy to be able to be discharged from the hospital. DVT prophylaxis consisted of Eliquis 2.5 mg BID for 30 days . Signed: Ruslan Ortez MD 7:38 AM 02/10/2024 [facility] 30on 01-29-2024 30 The patient is [...] by Chrystal Thao RN Outcome: Progressing [facility] 30 Daily Case Managemen t Update Multidisciplinary rounds have been completed. Barriers to Discharge: Pending placement. Received late notification that patients insurance has denied IPR placement. IPR physician completed P2P on behalf of patient and the denial was upheld. Rotary Drum Dyer and SW will be speaking with the patient shortly regarding SNF vs home discharge goal. Diet: Dietary Orders (From admission, onward) Start Ordered 01/29/24 0843 Special Kitchen Request Once Comments: Please send tajik yogurt (peach), grits, honey and milk, maori muffin. Decaf coffee with cream, diet coke. Thanks! 01/29/24 0844 01/24/24 1619 Regular Diet Diet effective now Question: Room Service? Answer: Yes 01/24/24 1618 Physician Expected Discharge Date: 01/25/2024 Discharge Delays: PT Six Click Score: 18 OT Six Click Score: 16 PT Recommendations: Inpatient rehab facility placement OT Recommendations: retirement facility placement Does patient understand post acute [...] Answer: postop musculoskeletal care 01/24/24 0743 [facility] BASIC METABOLIC PANELon 05-0 Anion gap [Moles/Vol] 10 mmol/L Normal 7-20 [facility] Comment on above: Performed By: #### L [id number] #### [facility] ([facility]) [address] [place] [address] Calcium [Mass/Vol] 10.4 mg/dL High 8.6-10.3 [facility] Comment on above: Performed By: #### L [id number] #### [facility] [address] [place] [address] Chloride [Moles/Vol] 106 mmol/L Normal 98-107 [facility] Comment on above: Performed By: #### L [id number] #### [facility] ([facility] [address] [place] [address] CO2 [Moles/Vol] 24 mmol/L Normal 21-31 [facility] Comment on above: Performed By: #### L [id number] #### [facility] ([facility]) [address] [place] [address] Creatinine [Mass/Vol] 1.52 mg/dL High 0.60-1.20 [facility] Comment on above: Performed By: #### L [id number] #### [facility] ([facility]) [address] [place] [address] GLOMERULAR FILTRATION RATE ML/MIN/1.73 SQ M.PREDICTED 35.1 mL/min/1.73m*2 Low >60.0 [facility] Comment on above: Result Comment: [facility]???s estimated glomerular filtration rate (eGFR) will [...] individuals. Performed By: #### L [id number] #### [facility] ([facility] [address] [place] [address] Glucose [Mass/Vol] 82 mg/dL Normal 70-100 [facility] Comment on above: Performed By: #### L [id number] #### [facility] ([facility]) [address] [place] [address] Potassium [Moles/Vol] 4.4 mmol/L Normal 3.5-5.1 [facility] Comment on above: Performed By: #### L [id number] #### [facility] ([facility]) [address] [place] [address] Sodium [Moles/Vol] 136 mmol/L Normal 136-145 [facility] Comment on above: Performed By: #### L [id number] #### [facility] ([facility]) [address] [place] [address] Urea nitrogen [Mass/Vol] 46 mg/dL High 7-25 [facility] Comment on above: Performed By: #### L [id number] #### [facility] ([facility]) [address] [place] [address] UREA NITROGEN/CREATININE (MASS RATIO) IN SER/PLAS 30.3 [facility] Comment on above: Performed By: #### L [id number] #### [facility] ([facility]) [address] [place] [address] CBC WITH AUTO DIFFERENTIALon 01-29-2024 Basophils (Bld) [#/Vol] 0.02 10*3/uL Normal 0.00-0.20 [facility] Comment on above: Performed By: #### L [id number] #### [facility] ([facility]) [address] [place] [address] Basophils/100 WBC (Bld) 0.2 % Normal 0.0-1.0 [facility] Comment on above: Performed By: #### L [id number] #### [facility] ([facility]) [address] [place] [address] Eosinophils (Bld) [#/Vol] 0.10 10*3/uL Normal 0.00-0.50 [facility] Comment on above: Performed By: #### L [id number] #### [facility] ([facility]) [address] [place] [address] Eosinophils/100 WBC (Bld) 1.2 % Normal 0.0-6.0 [facility] Comment on above: Performed By: #### L [id number] #### [facility] ([facility] [address] [place] [address] Erythrocyte distribution width (RBC) [Ratio] 13.2 % Normal 11.5-15.0 [facility] Comment on above: Performed By: #### L [id number] #### [facility] ([facility]) [address] [place] [address] ERYTHROCYTE MEAN CORPUSCULAR HEMOGLOBIN CONCENTRATION (G/DL) BY AUTOMATED 32.4 g/dL Normal 32.0-35.0 [facility] Comment on above: Performed By: #### L [id number] #### [facility] ([facility]) [address] [place] [address] Hematocrit (Bld) [Volume fraction] 24.1 % Low 36.0-48.0 [facility] Comment on above: Performed By: #### L [id number] #### [facility] ([facility]) [address] [place] [address] Hemoglobin (Bld) [Mass/Vol] 7.8 g/dL Low 12.0-15.0 [facility] Comment on above: Performed By: #### L [id number] #### [facility] ([facility]) [address] [place] [address] Immature granulocytes (Bld) [#/Vol] 0.07 10*3/uL Normal 0.00-0.20 [facility] Comment on above: Performed By: #### L [id number] #### [facility] [address] [place] [address] Immature granulocytes/100 WBC (Bld) 0.8 % Normal 0.0-1.0 [facility] Comment on above: Performed By: #### L [id number] #### [facility] ([facility]) [address] [place] [address] Lymphocytes (Bld) [#/Vol] 0.77 10*3/uL Low 1.20-4.00 [facility] Comment on above: Performed By: #### L [id number] #### [facility] ([facility]) [address] [place] [address] Lymphocytes/100 WBC (Bld) 8.9 % Low 20.0-45.0 [facility] Comment on above: Performed By: #### L [id number] #### [facility] [address] [place] [address] MCH (RBC) [Entitic mass] 32.0 pg Normal 27.0-33.0 [facility] Comment on above: Performed By: #### L [id number] #### [facility] [address] [place] [address] MCV (RBC) [Entitic vol] 98.8 fL High 82.0-98.0 [facility] Comment on above: Performed By: #### L [id number] #### [facility] ([facility]) [address] [place] [address] Monocytes (Bld) [#/Vol] 1.14 10*3/uL High 0.10-1.00 [facility] Comment on above: Performed By: #### L [id number] #### [facility] ([facility]) [address] [place] [address] Monocytes/100 WBC (Bld) 13.2 % High 5.0-12.0 [facility] Comment on above: Performed By: #### L [id number] #### [facility] ([facility]) [address] [place] [address] Neutrophils (Bld) [#/Vol] 6.53 10*3/uL Normal 1.60-7.60 [facility] Comment on above: Performed By: #### L [id number] #### [facility] ([facility]) [address] [place] [address] Neutrophils/100 WBC (Bld) 75.7 % High 40.0-72.0 [facility] Comment on above: Performed By: #### L [id number] #### [facility] ([facility]) [address] [place] [address] NRBC (PER 100 WBCS) BY AUTOMATED COUNT 0.0 % Normal 0 [facility] Comment on above: Performed By: #### L [id number] #### [facility] ([facility]) [address] [place] [address] PLATELETS (10*3/UL) IN BLOOD AUTOMATED COUNT 218 10*3/uL Normal 150-400 [facility] Comment on above: Performed By: #### L [id number] #### [facility] [facility] ([facility]) [address] [place] [address] RBC (Bld) [#/Vol] 2.44 10*6/uL Low 3.80-5.00 [facility] Comment on above: Performed By: #### L [id number] #### [facility] ([facility]) [address] [place] [address] WBC (Bld) [#/Vol] 8.63 10*3/uL Normal 4.00-10.60 [facility] Comment on above: Performed By: #### L [id number] #### [facility] ([facility]) [address] [place] [address] MAGNESIUMon 01-29-2024 Magnesium [Mass/Vol] 1.7 mg/dL Low 1.9-2.7 [facility] Comment on above: Performed By: #### L [id number] ####[facility] ([facility])[address] [place] [address] 30on 01-28-2024 30 The patient is Moderately [...] and maintained or improved Outcome: Progressing Normal [facility] 30 Daily Case Managemen t Update Multidisciplinary rounds have been completed. Barriers to Discharge: Pending medical clearance for discharge. POD #4. Awaiting medical readiness for hospital discharge. [facility] has submitted for insurance authorization. Diet: Dietary Orders (From admission, onward) Start Ordered 01/24/24 1619 Regular Diet Diet effective now Question: Room Service? Answer: Yes 01/24/24 1618 Physician Expected Discharge Date: 01/25/2024 Discharge Delays: PT Six Click Score: 17 OT Six Click Score: 17 PT Recommendations: Inpatient rehab facility placement OT Recommendations: retirement facility placement Does patient understand post acute [...] Answer: postop musculoskeletal care 01/24/24 0743 Normal [facility] BASIC METABOLIC PANELon 04-3 Anion gap [Moles/Vol] 10 mmol/L Normal 7-20 [facility] Comment on above: Performed By: #### L [id number] #### [facility] ([facility]) [address] [place] [address] Calcium [Mass/Vol] 10.3 mg/dL Normal 8.6-10.3 [facility] Comment on above: Performed By: #### L [id number] #### [facility] ([facility]) [address] [place] [address] Chloride [Moles/Vol] 104 mmol/L Normal 98-107 [facility] Comment on above: Performed By: #### L [id number] #### [facility] ([facility]) [address] [place] [address] CO2 [Moles/Vol] 25 mmol/L Normal 21-31 [facility] Comment on above: Performed By: #### L [id number] #### [facility] ([facility]) [address] [place] [address] Creatinine [Mass/Vol] 1.52 mg/dL High 0.60-1.20 [facility] Comment on above: Performed By: #### L [id number] #### [facility] ([facility]) [address] [place] [address] GLOMERULAR FILTRATION RATE ML/MIN/1.73 SQ M.PREDICTED 35.1 mL/min/1.73m*2 Low >60.0 [facility] Comment on above: Result Comment: [facility]???s estimated glomerular filtration rate (eGFR) will [...] group of individuals. Performed By: #### L [id number] #### [facility] ([facility]) [address] [place] [address] Glucose [Mass/Vol] 90 mg/dL Normal 70-100 [facility] Comment on above: Performed By: #### L [id number] #### [facility] ([facility]) [address] [place] [address] Potassium [Moles/Vol] 4.6 mmol/L Normal 3.5-5.1 [facility] Comment on above: Performed By: #### L [id number] #### [facility] ([facility]) [address] [place] [address] Sodium [Moles/Vol] 134 mmol/L Low 136-145 [facility] Comment on above: Performed By: #### L [id number] #### [facility] [address] [place] [address] Urea nitrogen [Mass/Vol] 49 mg/dL High 7-25 [facility] Comment on above: Performed By: #### L [id number] #### [facility] [address] [place] [address] UREA NITROGEN/CREATININE (MASS RATIO) IN SER/PLAS 32.2 Normal [facility] Comment on above: Performed By: #### L [id number] #### [facility] ([facility]) [address] [place] [address] CBC WITH AUTO DIFFERENTIALon 01-28-2024 Basophils (Bld) [#/Vol] 0.02 10*3/uL Normal 0.00-0.20 [facility] Comment on above: Performed By: #### L [id number] #### [facility] ([facility]) [address] [place] [address] Basophils/100 WBC (Bld) 0.2 % Normal 0.0-1.0 [facility] Comment on above: Performed By: #### L [id number] #### [facility] ([facility]) [address] [place] [address] Eosinophils (Bld) [#/Vol] 0.05 10*3/uL Normal 0.00-0.50 [facility] Comment on above: Performed By: #### L [id number] #### [facility] ([facility]) [address] [place] [address] Eosinophils/100 WBC (Bld) 0.5 % Normal 0.0-6.0 [facility] Comment on above: Performed By: #### L [id number] #### [facility] [address] [place] [address] Erythrocyte distribution width (RBC) [Ratio] 13.2 % Normal 11.5-15.0 [facility] Comment on above: Performed By: #### L [id number] #### [facility] ([facility] [address] [place] [address] ERYTHROCYTE MEAN CORPUSCULAR HEMOGLOBIN CONCENTRATION (G/DL) BY AUTOMATED 33.2 g/dL Normal 32.0-35.0 [facility] Comment on above: Performed By: #### L [id number] #### [facility] ([facility]) [address] [place] [address] Hematocrit (Bld) [Volume fraction] 25.3 % Low 36.0-48.0 [facility] Comment on above: Performed By: #### L [id number] #### [facility] ([facility]) [address] [place] [address] Hemoglobin (Bld) [Mass/Vol] 8.4 g/dL Low 12.0-15.0 [facility] Comment on above: Performed By: #### L [id number] #### [facility] ([facility]) [address] [place] [address] Immature granulocytes (Bld) [#/Vol] 0.07 10*3/uL Normal 0.00-0.20 [facility] Comment on above: Performed By: #### L [id number] #### [facility] ([facility]) [address] [place] [address] Immature granulocytes/100 WBC (Bld) 0.7 % Normal 0.0-1.0 [facility] Comment on above: Performed By: #### L [id number] #### [facility] ([facility]) [address] [place] [address] Lymphocytes (Bld) [#/Vol] 0.67 10*3/uL Low 1.20-4.00 [facility] Comment on above: Performed By: #### L [id number] #### [facility] ([facility]) [address] [place] [address] Lymphocytes/100 WBC (Bld) 7.1 % Low 20.0-45.0 [facility] Comment on above: Performed By: #### L [id number] #### [facility] ([facility]) [address] [place] [address] MCH (RBC) [Entitic mass] 31.5 pg Normal 27.0-33.0 [facility] Comment on above: Performed By: #### L [id number] #### [facility] ([facility]) [address] [place] [address] MCV (RBC) [Entitic vol] 94.8 fL Normal 82.0-98.0 [facility] Comment on above: Performed By: #### L [id number] #### [facility] ([facility]) [address] [place] [address] Monocytes (Bld) [#/Vol] 1.18 10*3/uL High 0.10-1.00 [facility] Comment on above: Performed By: #### L [id number] #### [facility] ([facility]) [address] [place] [address] Monocytes/100 WBC (Bld) 12.5 % High 5.0-12.0 [facility] Comment on above: Performed By: #### L [id number] #### [facility] ([facility]) [address] [place] [address] Neutrophils (Bld) [#/Vol] 7.47 10*3/uL Normal 1.60-7.60 [facility] Comment on above: Performed By: #### L [id number] #### [facility] ([facility]) [address] [place] [address] Neutrophils/100 WBC (Bld) 79.0 % High 40.0-72.0 [facility] Comment on above: Performed By: #### L [id number] #### [facility] ([facility]) [address] [place] [address] NRBC (PER 100 WBCS) BY AUTOMATED COUNT 0.0 % Normal 0 [facility] Comment on above: Performed By: #### L [id number] #### [facility] ([facility] [address] [place] [address] PLATELETS (10*3/UL) IN BLOOD AUTOMATED COUNT 197 10*3/uL Normal 150-400 [facility] Comment on above: Performed By: #### L [id number] #### [facility] ([facility]) [address] [place] [address] RBC (Bld) [#/Vol] 2.67 10*6/uL Low 3.80-5.00 [facility] Comment on above: Performed By: #### L [id number] #### [facility] ([facility]) [address] [place] [address] WBC (Bld) [#/Vol] 9.46 10*3/uL Normal 4.00-10.60 [facility] Comment on above: Performed By: #### L [id number] #### [facility] ([facility]) [address] [place] [address] 30on 01-27-2024 30 The patient is Moderately [...] and maintained or improved Outcome: Progressing Normal [facility] 30 Daily Case Managemen t Update Multidisciplinary rounds have been completed. Barriers to Discharge: Pending medical clearance for discharge. Medicine service was consulted for bradycardia. Medication adjustments have been made. Currently monitoring renal function, but will likely be medically ready for discharge soon. Patient is planning to go to [facility] when medically ready for discharge. [facility] has submitted for insurance pre-certification. Diet: Dietary Orders (From admission, onward) Start Ordered 01/24/24 1619 Regular Diet Diet effective now Question: Room Service? Answer: Yes 01/24/248 Physician Expected Discharge Date: 01/25/2024 Discharge Delays: [...] Answer: postop musculoskeletal care 01/24/24 0743 Normal [facility] BASIC METABOLIC PANELon - Anion gap [Moles/Vol] 10 mmol/L Normal 7-20 [facility] Comment on above: Performed By: #### L [id number] #### [facility] ([facility]) [address] [place] [address] Calcium [Mass/Vol] 10.1 mg/dL Normal 8.6-10.3 [facility] Comment on above: Performed By: #### L [id number] #### [facility] ([facility]) [address] [place] [address] Chloride [Moles/Vol] 106 mmol/L Normal 98-107 [facility] Comment on above: Performed By: #### L [id number] #### [facility] ([facility]) [address] [place] [address] CO2 [Moles/Vol] 24 mmol/L Normal 21-31 [facility] Comment on above: Performed By: #### L [id number] #### [facility] ([facility]) [address] [place] [address] Creatinine [Mass/Vol] 1.74 mg/dL High 0.60-1.20 [facility] Comment on above: Performed By: #### L [id number] #### [facility] ([facility]) [address] [facility] [place] [address] GLOMERULAR FILTRATION RATE ML/MIN/1.73 SQ M.PREDICTED 29.9 mL/min/1.73m*2 Low >60.0 [facility] Comment on above: Result Comment: [facility]???s estimated glomerular filtration rate (eGFR) will [...] group of individuals. Performed By: #### L [id number] #### [facility] ([facility]) [address] [place] [address] Glucose [Mass/Vol] 87 mg/dL Normal 70-100 [facility] Comment on above: Performed By: #### L [id number] #### [facility] ([facility]) [address] [facility] [place] [address] Potassium [Moles/Vol] 4.4 mmol/L Normal 3.5-5.1 [facility] Comment on above: Performed By: #### L [id number] #### [facility] ([facility]) [address] [place] [place] [address] Sodium [Moles/Vol] 136 mmol/L Normal 136-145 [facility] Comment on above: Performed By: #### L [id number] #### [facility] ([facility]) [address] [place] [address] Urea nitrogen [Mass/Vol] 58 mg/dL High 7-25 [facility] Comment on above: Performed By: #### L [id number] #### [facility] ([facility]) [address] [place] [address] UREA NITROGEN/CREATININE (MASS RATIO) IN SER/PLAS 33.3 Normal [facility] Comment on above: Performed By: #### L [id number] #### [facility] ([facility]) [address] [place] [place] [address] CBC WITH AUTO DIFFERENTIALon 01-27-2024 Basophils (Bld) [#/Vol] 0.01 10*3/uL Normal 0.00-0.20 [facility] Comment on above: Performed By: #### L [id number] #### [facility] ([facility]) [address] [place] [address] Basophils/100 WBC (Bld) 0.1 % Normal 0.0-1.0 [facility] Comment on above: Performed By: #### L [id number] #### [facility] ([facility]) [address] [place] [address] Eosinophils (Bld) [#/Vol] 0.07 10*3/uL Normal 0.00-0.50 [facility] Comment on above: Performed By: #### L [id number] #### [facility] ([facility]) [address] [place] [address] Eosinophils/100 WBC (Bld) 0.8 % Normal 0.0-6.0 [facility] Comment on above: Performed By: #### L [id number] #### [facility] ([facility]) [address] [place] [address] Erythrocyte distribution width (RBC) [Ratio] 13.4 % Normal 11.5-15.0 [facility] Comment on above: Performed By: #### L [id number] #### [facility] ([facility]) [address] [place] [address] ERYTHROCYTE MEAN CORPUSCULAR HEMOGLOBIN CONCENTRATION (G/DL) BY AUTOMATED 32.4 g/dL Normal 32.0-35.0 [facility] Comment on above: Performed By: #### L [id number] #### [facility] ([facility]) [address] [place] [address] Hematocrit (Bld) [Volume fraction] 25.3 % Low 36.0-48.0 [facility] Comment on above: Performed By: #### L [id number] #### [facility] ([facility]) [address] [place] [address] Hemoglobin (Bld) [Mass/Vol] 8.2 g/dL Low 12.0-15.0 [facility] Comment on above: Performed By: #### L [id number] #### [facility] ([facility]) [address] [place] [address] Immature granulocytes (Bld) [#/Vol] 0.06 10*3/uL Normal 0.00-0.20 [facility] Comment on above: Performed By: #### L [id number] #### [facility] ([facility]) [address] [place] [address] Immature granulocytes/100 WBC (Bld) 0.7 % Normal 0.0-1.0 [facility] Comment on above: Performed By: #### L [id number] #### [facility] ([facility]) [address] [place] [address] Lymphocytes (Bld) [#/Vol] 0.68 10*3/uL Low 1.20-4.00 [facility] Comment on above: Performed By: #### L [id number] #### [facility] ([facility]) [address] [place] [address] Lymphocytes/100 WBC (Bld) 7.5 % Low 20.0-45.0 [facility] Comment on above: Performed By: #### L [id number] #### [facility] ([facility]) [address] [place] [address] MCH (RBC) [Entitic mass] 31.4 pg Normal 27.0-33.0 [facility] Comment on above: Performed By: #### L [id number] #### [facility] ([facility]) [address] [place] [address] MCV (RBC) [Entitic vol] 96.9 fL Normal 82.0-98.0 [facility] Comment on above: Performed By: #### L [id number] #### [facility] ([facility]) [address] [place] [address] Monocytes (Bld) [#/Vol] 1.20 10*3/uL High 0.10-1.00 [facility] Comment on above: Performed By: #### L [id number] #### [facility] ([facility]) [address] [place] [address] Monocytes/100 WBC (Bld) 13.2 % High 5.0-12.0 [facility] Comment on above: Performed By: #### L [id number] #### [facility] ([facility]) [address] [place] [address] Neutrophils (Bld) [#/Vol] 7.06 10*3/uL Normal 1.60-7.60 [facility] Comment on above: Performed By: #### L [id number] #### [facility] ([facility]) [address] [place] [address] Neutrophils/100 WBC (Bld) 77.7 % High 40.0-72.0 [facility] Comment on above: Performed By: #### L [id number] #### [facility] ([facility]) [address] [place] [address] NRBC (PER 100 WBCS) BY AUTOMATED COUNT 0.0 % Normal 0 [facility] Comment on above: Performed By: #### L [id number] #### [facility] ([facility]) [address] [place] [address] PLATELETS (10*3/UL) IN BLOOD AUTOMATED COUNT 196 10*3/uL Normal 150-400 [facility] Comment on above: Performed By: #### L [id number] #### [facility] ([facility]) [address] [place] [address] RBC (Bld) [#/Vol] 2.61 10*6/uL Low 3.80-5.00 [facility] Comment on above: Performed By: #### L [id number] #### [facility] ([facility]) [address] [place] [address] WBC (Bld) [#/Vol] 9.08 10*3/uL Normal 4.00-10.60 [facility] Comment on above: Performed By: #### L [id number] #### [facility] [address] [place] [address] [facility] CREATINE KINASE (U/L) IN SER/PLAS 34.0 U/L Normal 30.0-223.0 [facility] Comment on above: Performed By: #### L [id number] ####[facility] ([facility])[address] [place] [address] MAGNESIUMon 01-27-2024 Magnesium [Mass/Vol] 2.0 mg/dL Normal 1.9-2.7 [facility] Comment on above: Performed By: #### L [id number] #### [facility] ([facility]) [address] [place] [address] PHOSPHORUSon 01-27-2024 Magnesium [Mass/Vol] 3.1 mg/dL Normal 2.5-5.0 [facility] Comment on above: Performed By: #### L [id number] #### [facility] ([facility]) [address] [place] [address] URIC ACIDon 01-27-2024 Magnesium [Mass/Vol] 7.6 mg/dL High 2.3-6.6 [facility] Comment on above: Performed By: #### L [id number] #### [facility] ([facility]) [address] [place] [address] VITAMIN D 25 HYDROXYon 01-26 CALCIDIOL (25 [place] VITAMIN D3) (NG/ML) IN SER/PLAS 34.6 ng/mL Normal 30.0-80.0 [facility] Comment on above: Result Comment: >80. 0 Toxicity possible Performed By: #### L [id number] ####[facility] ([facility])[address] [place] [address] BASIC METABOLIC PANELon 12-30 Anion gap [Moles/Vol] 11 mmol/L Normal 7-20 [facility] Comment on above: Performed By: #### L [id number] #### [facility] ([facility]) [address] [place] [address] Calcium [Mass/Vol] 10.0 mg/dL Normal 8.6-10.3 [facility] Comment on above: Performed By: #### L [id number] #### [facility] ([facility]) [address] [place] [address] Chloride [Moles/Vol] 104 mmol/L Normal 98-107 [facility] Comment on above: Performed By: #### L [id number] #### [facility] [address] [place] [address] CO2 [Moles/Vol] 24 mmol/L Normal 21-31 [facility] Comment on above: Performed By: #### L [id number] #### [facility] ([facility]) [address] [place] [address] Creatinine [Mass/Vol] 1.97 mg/dL High 0.60-1.20 [facility] Comment on above: Performed By: #### L [id number] #### [facility] ([facility]) [address] [place] [address] GLOMERULAR FILTRATION RATE ML/MIN/1.73 SQ M.PREDICTED 25.7 mL/min/1.73m*2 Low >60.0 [facility] Comment on above: Result Comment: [facility]???s estimated glomerular filtration rate (eGFR) will [...] group of individuals. Performed By: #### L [id number] #### [facility] [address] [place] [address] Glucose [Mass/Vol] 127 mg/dL High 70-100 [facility] Comment on above: Performed By: #### L [id number] #### [facility] ([facility] [address] [place] [address] Potassium [Moles/Vol] 4.2 mmol/L Normal 3.5-5.1 [facility] Comment on above: Performed By: #### L [id number] #### [facility] ([facility]) [address] [place] [address] Sodium [Moles/Vol] 135 mmol/L Low 136-145 [facility] Comment on above: Performed By: #### L [id number] #### [facility] ([facility]) [address] [place] [address] Urea nitrogen [Mass/Vol] 60 mg/dL High 7-25 [facility] Comment on above: Performed By: #### L [id number] #### [facility] ([facility]) [address] [place] [address] UREA NITROGEN/CREATININE (MASS RATIO) IN SER/PLAS 30.5 Normal [facility] Comment on above: Performed By: #### L [id number] #### [facility] ([facility]) [address] [place] [address] CBC WITH AUTO DIFFERENTIALon 01-26-2024 Basophils (Bld) [#/Vol] 0.01 10*3/uL Normal 0.00-0.20 [facility] Comment on above: Performed By: #### L [id number] ####[facility] ([facility])[address] [place] [address] Basophils/100 WBC (Bld) 0.1 % Normal 0.0-1.0 [facility] Comment on above: Performed By: #### L [id number] ####[facility] [place] [address] Eosinophils (Bld) [#/Vol] 0.01 10*3/uL Normal 0.00-0.50 [facility] Comment on above: Performed By: #### L [id number] ####[facility] [place] [address] Eosinophils/100 WBC (Bld) 0.1 % Normal 0.0-6.0 [facility] Comment on above: Performed By: #### L [id number] ####[facility] ([facility])[address] [place] [address] Erythrocyte distribution width (RBC) [Ratio] 13.5 % Normal 11.5-15.0 [facility] Comment on above: Performed By: #### L [id number] ####[facility] ([facility])[address] [place] [address] ERYTHROCYTE MEAN CORPUSCULAR HEMOGLOBIN CONCENTRATION (G/DL) BY AUTOMATED 32.1 g/dL Normal 32.0-35.0 [facility] Comment on above: Performed By: #### L [id number] ####[facility] ([facility])[address] [place] [address] Hematocrit (Bld) [Volume fraction] 26.5 % Low 36.0-48.0 [facility] Comment on above: Performed By: #### L [id number] ####[facility] ([facility])[address] [place] [address] Hemoglobin (Bld) [Mass/Vol] 8.5 g/dL Low 12.0-15.0 [facility] Comment on above: Performed By: #### L [id number] ####[facility] ([facility])[address] [place] [address] Immature granulocytes (Bld) [#/Vol] 0.09 10*3/uL Normal 0.00-0.20 [facility] Comment on above: Performed By: #### L [id number] ####[facility] ([facility])[address] [place] [address] Immature granulocytes/100 WBC (Bld) 0.8 % Normal 0.0-1.0 [facility] Comment on above: Performed By: #### L [id number] ####[facility] ([facility])[address] [place] [address] Lymphocytes (Bld) [#/Vol] 0.47 10*3/uL Low 1.20-4.00 [facility] Comment on above: Performed By: #### L [id number] ####[facility] ([facility])[address] [place] [address] Lymphocytes/100 WBC (Bld) 4.2 % Low 20.0-45.0 [facility] Comment on above: Performed By: #### L [id number] ####[facility] ([facility])[address] [place] [address] MCH (RBC) [Entitic mass] 31.7 pg Normal 27.0-33.0 [facility] Comment on above: Performed By: #### L [id number] ####[facility] ([facility])[address] [place] [address] MCV (RBC) [Entitic vol] 98.9 fL High 82.0-98.0 [facility] Comment on above: Performed By: #### L [id number] ####[facility] ([facility])[address] [place] [address] Monocytes (Bld) [#/Vol] 1.01 10*3/uL High 0.10-1.00 [facility] Comment on above: Performed By: #### L [id number] ####[facility] ([facility])[address] [place] [address] Monocytes/100 WBC (Bld) 8.9 % Normal 5.0-12.0 [facility] Comment on above: Performed By: #### L [id number] ####[facility] ([facility])[address] [place] [address] Neutrophils (Bld) [#/Vol] 9.72 10*3/uL High 1.60-7.60 [facility] Comment on above: Performed By: #### L [id number] ####[facility] ([facility])[address] [place] [address] Neutrophils/100 WBC (Bld) 85.9 % High 40.0-72.0 [facility] Comment on above: Performed By: #### L [id number] ####[facility] ([facility])[address] [place] [address] NRBC (PER 100 WBCS) BY AUTOMATED COUNT 0.0 % Normal 0 [facility] Comment on above: Performed By: #### L [id number] ####[facility] [place] [address] PLATELETS (10*3/UL) IN BLOOD AUTOMATED COUNT 199 10*3/uL Normal 150-400 [facility] Comment on above: Performed By: #### L [id number] ####[facility] ([facility])[address] [place], [place] [address] RBC (Bld) [#/Vol] 2.68 10*6/uL Low 3.80-5.00 [facility] Comment on above: Performed By: #### L [id number] ####[facility] ([facility])[address] [place], [place] [address] WBC (Bld) [#/Vol] 11.31 10*3/uL High 4.00-10.60 [facility] Comment on above: Performed By: #### L [id number] ####[facility] ([facility])[address], [place] [address] CONSULTon 01-26-2024 CONSULT Physical Medicine an d Rehabilitation Consult Note Patient Identification Lizabeth Montanez is a 78 y.o. female. : 1945 Admit Date: 01/24/2024 Attending Provider: Mynor Gallegos MD Primary Care Physician: Isak Bone MD Admitting Diagnosis: Primary osteoarthritis of right [...] tablet 2.5 mg, 2.5 mg, oral, BID, Xiomaraib Bashar, 2.5 mg at 01/25/242142 ascorbic acid (Vitamin C) tablet 500 mg, 500 mg, oral, Daily, Ruslan Ortez MD, 500 mg at 01/25/24941 bisoprolol (Zebeta) tablet 5 mg, 5 mg, oral, Daily, Shilpi Steiner cholecalciferol (Vitamin D-3) tablet 1,000 Units, 1,000 Units, oral, Daily, Ruslan Ortez MD, 1,000 Units at 01/25/24941 docusate sodium (Colace) capsule 100 mg, 100 mg, oral, BID, Ruslan Ortez MD, 100 mg at 01/25/242142 ferrous sulfate tablet 325 mg, 325 mg, oral, Daily with breakfast, Ruslan Ortez MD, 325 mg at 01/25/24 0813 HYDROcodone-acetaminoph en ([facility]) 5-325 mg per tablet 1 tablet, 1 [...] Laterality Date CARDIOVE (more content not included)... Normal [facility] CORTISOLon 01-26-2024 CORTISOL (UG/DL) IN SER/PLAS 18.9 ug/dL Normal - [facility] Comment on above: Performed By: #### L [id number] ####[facility] ([facility])[address] [place] [address] CORTISOL (UG/DL) IN SER/PLAS 15.1 ug/dL Normal 6-23 [facility] Comment on above: Order Comment: 30-mi n cortisol check after ACTH administration Performed By: #### L [id number] ####[facility] ([facility])[address] [place] [address] MAGNESIUMon 01-26-2024 Magnesium [Mass/Vol] 1.4 mg/dL Low 1.9-2.7 [facility] Comment on above: Performed By: #### L [id number] ####[facility] ([facility])[address] [place] [address] URINALYSIS WITH MICROSCOPICo n 01-26-2024 BILIRUBIN, TOTAL PRESENCE IN URINE Negative Normal Negative [facility] Comment on above: Performed By: #### L [id number] #### [facility] ([facility]) [address] [place] [address] Clarity (U) Clear Normal Clear [facility] Comment on above: Performed By: #### L [id number] #### [facility] ([facility]) [address] [place] [address] Color (U) Straw Abnormal Yellow [facility] Comment on above: Performed By: #### L [id number] #### [facility] ([facility]) [address] [place] [address] Glucose (U) [Mass/Vol] Negative Normal Negative [facility] Comment on above: Performed By: #### L [id number] #### [facility] ([facility]) [address] [place] [address] HEMOGLOBIN PRESENCE IN URINE Small Abnormal Negative [facility] Comment on above: Performed By: #### L [id number] #### [facility] ([facility]) [address] [place] [address] Ketones Ql (U) Negative Normal Negative [facility] Comment on above: Performed By: #### L [id number] #### [facility] ([facility]) [address] [place] [address] LEUKOCYTE ESTERASE PRESENCE IN URINE BY TEST STRIP Trace Abnormal Negative [facility] Comment on above: Performed By: #### L [id number] #### [facility] ([facility]) [address] [place] [address] MUCUS (#/HPF) IN URINE SEDIMENT Occasional Normal None Seen, Occasional, Few [facility] Comment on above: Performed By: #### L [id number] #### [facility] ([facility]) [address] [place] [address] NITRITE PRESENCE IN URINE Negative Normal Negative [facility] Comment on above: Performed By: #### L [id number] #### [facility] ([facility]) [address] [place] [address] pH (U) 5.0 [pH] Normal 5.0-8.0 [facility] Comment on above: Performed By: #### L [id number] #### [facility] ([facility]) [address] [place] [address] Protein (U) [Mass/Vol] Negative Normal Negative [facility] Comment on above: Performed By: #### L [id number] #### [facility] ([facility]) [address] [place] [address] RBC (#/HPF) IN URINE SEDIMENT 6-10 Abnormal None Seen [facility] Comment on above: Performed By: #### L [id number] #### [facility] ([facility]) [address] [place] [address] Specific gravity (U) [Rel density] 1.013 Low 1.015-1.020 [facility] Comment on above: Performed By: #### L [id number] #### [facility] ([facility]) [address] [place] [address] SQUAMOUS EPITHELIAL CELLS (#/HPF) IN URINE SEDIMENT Moderate Abnormal None Seen, Occasional [facility] Comment on above: Performed By: #### L [id number] #### [facility] ([facility]) [address] [place] [address] WBC (LEUKOCYTE) (#/HPF) IN URINE SEDIMENT 3-5 Abnormal None Seen [facility] Comment on above: Performed By: #### L [id number] #### [facility] ([facility]) [address] [place] [address] 30on 01-25-2024 30 The patient is Moderately [...] include meds as prescribed, cold therapy. Normal [facility] 30 The patient is Moderately Stable - Low risk of patient condition declining or worsening The patient's goals for the shift include comfort The clinical goals for the shift include pain management Over the shift, the patient did not make progress toward the following goals. Barriers to progression include post op pain. Recommendations to address these barriers include meds as prescribed. Normal [facility] ALBUMINon 01-25-2024 Albumin [Mass/Vol] 3.4 g/dL Low 3.5-5.7 [facility] Comment on above: Performed By: #### L [id number] #### [facility] ([facility]) [address] [place] [address] BASIC METABOLIC PANELon 12-30 Anion gap [Moles/Vol] 10 mmol/L Normal 7-20 [facility] Comment on above: Performed By: #### L [id number] #### [facility] ([facility]) [address] [place] [address] Calcium [Mass/Vol] 10.3 mg/dL Normal 8.6-10.3 [facility] Comment on above: Performed By: #### L [id number] #### [facility] ([facility]) [address] [place] [address] Chloride [Moles/Vol] 106 mmol/L Normal 98-107 [facility] Comment on above: Performed By: #### L [id number] #### [facility] ([facility] [address] [place] [address] CO2 [Moles/Vol] 24 mmol/L Normal 21-31 [facility] Comment on above: Performed By: #### L [id number] #### [facility] ([facility]) [address] [place] [address] Creatinine [Mass/Vol] 1.94 mg/dL High 0.60-1.20 [facility] Comment on above: Performed By: #### L [id number] #### [facility] ([facility]) [address] [place] [address] GLOMERULAR FILTRATION RATE ML/MIN/1.73 SQ M.PREDICTED 26.2 mL/min/1.73m*2 Low >60.0 [facility] Comment on above: Result Comment: [facility]???s estimated glomerular filtration rate (eGFR) will [...] individuals. Performed By: #### L [id number] #### [facility] ([facility]) [address] [place] [address] Glucose [Mass/Vol] 137 mg/dL High 70-100 [facility] Comment on above: Performed By: #### L [id number] #### [facility] ([facility]) [address] [place] [address] Potassium [Moles/Vol] 5.0 mmol/L Normal 3.5-5.1 [facility] Comment on above: Performed By: #### L [id number] #### [facility] ([facility]) [address] [place] [address] Sodium [Moles/Vol] 135 mmol/L Low 136-145 [facility] Comment on above: Performed By: #### L [id number] #### [facility] ([facility]) [address] [place] [address] Urea nitrogen [Mass/Vol] 51 mg/dL High 7-25 [facility] Comment on above: Performed By: #### L [id number] #### [facility] ([facility]) [address] [place] [address] UREA NITROGEN/CREATININE (MASS RATIO) IN SER/PLAS 26.3 Normal [facility] Comment on above: Performed By: #### L [id number] #### [facility] ([facility]) [address] [place] [address] CBCon 01-25-2024 Erythrocyte distribution width (RBC) [Ratio] 13.2 % Normal 11.5-15.0 [facility] Comment on above: Performed By: #### L [id number] ####[facility] ([facility])[address] [place] [address] ERYTHROCYTE MEAN CORPUSCULAR HEMOGLOBIN CONCENTRATION (G/DL) BY AUTOMATED 31.7 g/dL Low 32.0-35.0 [facility] Comment on above: Performed By: #### L [id number] ####[facility] ([facility])[address] [place] [address] Hematocrit (Bld) [Volume fraction] 26.2 % Low 36.0-48.0 [facility] Comment on above: Performed By: #### L [id number] ####[facility] ([facility])[address] [place] [address] Hemoglobin (Bld) [Mass/Vol] 8.3 g/dL Low 12.0-15.0 [facility] Comment on above: Performed By: #### L [id number] ####[facility] [place] [address] MCH (RBC) [Entitic mass] 31.4 pg Normal 27.0-33.0 [facility] Comment on above: Performed By: #### L [id number] ####[facility] ([facility] [place] [address] MCV (RBC) [Entitic vol] 99.2 fL High 82.0-98.0 [facility] Comment on above: Performed By: #### L [id number] ####[facility] ([facility])[address] [place] [address] PLATELETS (10*3/UL) IN BLOOD AUTOMATED COUNT 188 10*3/uL Normal 150-400 [facility] Comment on above: Performed By: #### L [id number] ####[facility] ([facility])[address] [place] [address] RBC (Bld) [#/Vol] 2.64 10*6/uL Low 3.80-5.00 [facility] Comment on above: Performed By: #### L [id number] ####[facility] ([facility])[address] [place] [address] WBC (Bld) [#/Vol] 13.05 10*3/uL High 4.00-10.60 [facility] Comment on above: Performed By: #### L [id number] ####[facility] ([facility] [place] [address] CONSULTon 01-25-2024 CONSULT --- Attestation signed by Isak Hinojosa MD at 01/27/2024 9:01 AM By using [...] from me. Reviewed and approved by ISAK HINOJOSA on 01/27/24 at 9:01 AM. [facility] Inpatient Consult Note Patient - Lizabeth Montanez Age - 78 [facility] 1945 [id number] Date of Admission - 01/24/2024 5:39 AM [...] Ruslan Ortez MD, 5 mg at 01/25/24 0942 ascorbic acid (Vitamin C) tablet 500 mg, 500 mg, oral, Daily, Ruslan Ortez MD, 500 mg at 01/25/24 0942 [Held by provider] bisoprolol (Zebeta) tablet 10 mg, 10 mg, oral, Daily, Shilpi Steiner cholecalciferol (Vitamin D-3) tablet 1,000 Units, 1,000 Units, oral, Daily, Ruslan Ortez MD, 1,000 Units at 01/25/24 0942 docusate sodium (Colace) capsule 100 mg, 100 mg, oral, BID, Ruslan Ortez MD, 100 mg at 01/25/24 0942 ferrous sulfate tablet 325 mg, 325 mg, oral, Daily with breakfast, Ruslan Ortez MD, 325 mg at 01/25/24 0813 HYDROcodone-acetaminoph en ([facility]) 5-325 mg per tablet 1 tablet, 1 [...] (Narcan) i (more content not included)... Normal [facility] CORTISOLon 01-25-2024 CORTISOL (UG/DL) IN SER/PLAS 2.2 ug/dL Low 6-23 [facility] Comment on above: Performed By: #### L [id number] #### [facility] ([facility] [address] [place] [address] CREATININE, URINE, RANDOMon 01-25-2024 Creatinine (U) [Mass/Vol] 108.0 mg/dL Normal 26-299 [facility] Comment on above: Performed By: #### L [id number] #### [facility] ([facility]) [address] [place] [address] FERRITINon 01-25-2024 FERRITIN (NG/ML) IN SER/PLAS 285.0 ng/mL Normal 11.0-307.0 [facility] Comment on above: Performed By: #### L [id number] #### [facility] ([facility]) [address] [place] [address] FOLATEon 01-25-2024 FOLATE (NG/ML) IN SER/PLAS 16.22 ng/mL Normal 6.6-1000 [facility] Comment on above: Performed By: #### L [id number] ####[facility] (BE[facility]ER)[address] [place] [address] IRON AND TIBCon 01-25-2024 IRON (UG/DL) IN SER/PLAS 46 ug/dL Low 50-212 [facility] Comment on above: Performed By: #### L [id number] #### [facility] ([facility]) [address] [place] [address] IRON BINDING CAPACITY (UG/DL) IN SER/PLAS 235 ug/dL Low 250-450 [facility] Comment on above: Performed By: #### L [id number] #### [facility] ([facility]) [address] [place] [address] IRON BINDING CAPACITY.UNSATURATE D (UG/DL) IN SER/PLAS 189.0 ug/dL Normal 155.0-355.0 [facility] Comment on above: Performed By: #### L [id number] #### [facility] ([facility]) [address] [place] [address] IRON SATURATION (%) IN SER/PLAS 20 % Normal 20-50 [facility] Comment on above: Performed By: #### L [id number] #### [facility] ([facility]) [address] [place] [address] SODIUM, URINE, RANDOMon 12-30 Sodium (U) [Moles/Vol] 32 mmol/L Normal [facility] Comment on above: Performed By: #### L [id number] ####[facility] ([facility])[address] [place] [address] TSH3 REFLEX TO FT4on 024 THYROTROPIN (MIU/L) IN SER/PLAS BY DETECTION LIMIT <= 0.05 MIU/L 0.97 mIU/L Normal 0.34-5.60 [facility] Comment on above: Performed By: #### L [id number] #### [facility] ([facility]) [address] [place] [address] VITAMIN B12on 01-25-2024 Cobalamin (Vitamin B12) [Mass/Vol] 310 pg/mL Normal 180-914 [facility] Comment on above: Result Comment: REFE RENCE RANGES: 180-914 pg/mL Normal 145-179 pg/mL Indeterminate <145 pg/mL Deficient Performed By: #### L [id number] #### [facility] ([facility] [address] [place] [address] 30on 01-24-2024 30 The patient is Moderately [...] and maintained or improved Outcome: Progressing Normal [facility] HPon 01-24-2024 HP H&P reviewed. The patient was examined and there are no changes to the H&P. I personally examined the patient and Marked his operative extremity, all questions answered and consents signed. Discussed operative and post op plan. Normal [facility] MRSA/MSSA DNA NASALon 2023 MRSA DNA Negative Normal Negative [facility] Comment on above: Order Comment: Testi [...] colonization. Performed By: #### L [id number] #### [facility] (AKER) [address] [place] [address] MSSA DNA Negative Normal Negative [facility] Comment on above: Order Comment: Testi [...] colonization. Performed By: #### L [id number] #### [facility] ([facility]ER) [address] [place] [address] OPNOTEon 01-24-2024 OPNOTE TOTAL KNEE ARTHROPLA STY (R) Operative Note Date: 01/24/2024 Location: [facility] Name: Lizabeth Montanez, : 1945, Diagnosis Pre-op Diagnosis * Primary osteoarthritis of right knee [M17.11] Post-op Diagnosis * Primary osteoarthritis of right knee [M17.11] Procedures TOTAL KNEE ARTHROPLASTY 09061 - CT ARTHRP KNE CONDYLE&PLATU MEDIAL&LAT COMPARTMENTS CT INJECTION AA&/STRD FEMORAL NERVE W/IMG GDN [70613] Surgeons * Mynor Gallegos - Primary Ruslan Lew MD Procedure Summary Anesthesia: General ASA: III Estimated Blood Loss: 250 mL Drains: [REMOVED] Urethral Catheter Non-latex 16 Fr. (Removed) Implants Type Name Action Serial No. Bone Cement CEMENT,BONE,[id number] - [id number] Implanted PERSONA CR FEMUR Implanted PERSONA NATURAL TIBIA Implanted PERSONA PATELLA Implanted PERSONA ARTICULAR SURFACE Implanted Implants : Persona Size 5 CR femur component and size E natural tibial component, Size 35 mm round patellar resurfacing , Size 10 mm Medial congruent poly liner ( MC) Staff: Director Of Education And Training: Leilani Guerrero RN Scrub Person: Carlie Francisco CST Agricultural Consultant: Rogelio Feliz CSA Indications: Lizabeth Montanez is [...] the os (more content not included)... Normal [facility] POCT GLUCOSE METER UNSOLICIT ED RESULTSon 01-24-2024 Glucose [Mass/Vol] 97 mg/dL Normal 70-105 [facility] Comment on above: Order Comment: Waive d Testing in the ED is performed under the ED CLIA certificate #[id number]. Result Comment: czyd orc Performed By: #### L [id number] #### [facility] ([facility]) [address] [place] [address] APTTon 01-16-2024 ACTIVATED PARTIAL THROMBOPLASTIN TIME IN PPP BY COAGULATION ASSAY 33.4 Seconds Normal 25.0-35.0 [facility] Comment on above: Result Comment: Clin ical significance of the APTT is questionable in the presence of heparin. Performed By: #### L [id number] ####[facility] ([facility])[address] [place] [address] BASIC METABOLIC PANELon 12-29 Anion gap [Moles/Vol] 12 mmol/L Normal 7-20 [facility] Comment on above: Performed By: #### L [id number] ####[facility] ([facility])[address] [place] [address] Calcium [Mass/Vol] 11.5 mg/dL High 8.6-10.3 [facility] Comment on above: Performed By: #### L [id number] ####[facility] [place] [address] Chloride [Moles/Vol] 108 mmol/L High 98-107 [facility] Comment on above: Performed By: #### L [id number] ####[facility] ([facility] [place] [address] CO2 [Moles/Vol] 24 mmol/L Normal 21-31 [facility] Comment on above: Performed By: #### L [id number] ####[facility] ([facility] [place] [address] Creatinine [Mass/Vol] 1.75 mg/dL High 0.60-1.20 [facility] Comment on above: Performed By: #### L [id number] ####[facility] ([facility])[address] [place] [address] GLOMERULAR FILTRATION RATE ML/MIN/1.73 SQ M.PREDICTED 29.6 mL/min/1.73m*2 Low >60.0 [facility] Comment on above: Result Comment: [facility]???s estimated glomerular filtration rate (eGFR) will [...] of individuals. Performed By: #### L [id number] ####[facility] ([facility])[address] [place] [address] Glucose [Mass/Vol] 96 mg/dL Normal 70-100 [facility] Comment on above: Performed By: #### L [id number] ####[facility] ([facility])[address] [place] [address] Potassium [Moles/Vol] 4.3 mmol/L Normal 3.5-5.1 [facility] Comment on above: Performed By: #### L [id number] ####[facility] ([facility])[address] [facility] [place] [address] Sodium [Moles/Vol] 140 mmol/L Normal 136-145 [facility] Comment on above: Performed By: #### L [id number] ####[facility] ([facility])[address] [place] [place] [address] Urea nitrogen [Mass/Vol] 56 mg/dL High 7-25 [facility] Comment on above: Performed By: #### L [id number] ####[facility] ([facility])[address] [place] [address] UREA NITROGEN/CREATININE (MASS RATIO) IN SER/PLAS 32.0 Normal [facility] Comment on above: Performed By: #### L [id number] ####[facility] ([facility])[address] [place] [address] CBC WITH AUTO DIFFERENTIALon 01-16-2024 Basophils (Bld) [#/Vol] 0.05 10*3/uL Normal 0.00-0.20 [facility] Comment on above: Performed By: #### L [id number] ####[facility] ([facility])[address] [place] [address] Basophils/100 WBC (Bld) 0.9 % Normal 0.0-1.0 [facility] Comment on above: Performed By: #### L [id number] ####[facility] ([facility])[address] [place] [address] Eosinophils (Bld) [#/Vol] 0.16 10*3/uL Normal 0.00-0.50 [facility] Comment on above: Performed By: #### L [id number] ####[facility] ([facility])[address] [place] [address] Eosinophils/100 WBC (Bld) 2.7 % Normal 0.0-6.0 [facility] Comment on above: Performed By: #### L [id number] ####[facility] ([facility])[address] [place] [address] Erythrocyte distribution width (RBC) [Ratio] 13.7 % Normal 11.5-15.0 [facility] Comment on above: Performed By: #### L [id number] ####[facility] ([facility])[address] [place] [address] ERYTHROCYTE MEAN CORPUSCULAR HEMOGLOBIN CONCENTRATION (G/DL) BY AUTOMATED 31.8 g/dL Low 32.0-35.0 [facility] Comment on above: Performed By: #### L [id number] ####[facility] [place] [address] Hematocrit (Bld) [Volume fraction] 30.8 % Low 36.0-48.0 [facility] Comment on above: Performed By: #### L [id number] ####[facility] (BEAKER)[address] [place] [address] Hemoglobin (Bld) [Mass/Vol] 9.8 g/dL Low 12.0-15.0 [facility] Comment on above: Performed By: #### L [id number] ####[facility] ([facility])[address] [place] [address] Immature granulocytes (Bld) [#/Vol] 0.01 10*3/uL Normal 0.00-0.20 [facility] Comment on above: Performed By: #### L [id number] ####[facility] ([facility])[address] [place] [address] Immature granulocytes/100 WBC (Bld) 0.2 % Normal 0.0-1.0 [facility] Comment on above: Performed By: #### L [id number] ####[facility] ([facility])[address] [place] [address] Lymphocytes (Bld) [#/Vol] 0.79 10*3/uL Low 1.20-4.00 [facility] Comment on above: Performed By: #### L [id number] ####[facility] ([facility] [place] [address] Lymphocytes/100 WBC (Bld) 13.5 % Low 20.0-45.0 [facility] Comment on above: Performed By: #### L [id number] ####[facility] ([facility] [place] [address] MCH (RBC) [Entitic mass] 31.3 pg Normal 27.0-33.0 [facility] Comment on above: Performed By: #### L [id number] ####[facility] (BEAKER)[address] [place] [address] MCV (RBC) [Entitic vol] 98.4 fL High 82.0-98.0 [facility] Comment on above: Performed By: #### L [id number] ####[facility] (BEAKER)[address] [place] [address] Monocytes (Bld) [#/Vol] 0.57 10*3/uL Normal 0.10-1.00 [facility] Comment on above: Performed By: #### L [id number] ####[facility] (BEAKER)[address] [place] [address] Monocytes/100 WBC (Bld) 9.7 % Normal 5.0-12.0 [facility] Comment on above: Performed By: #### L [id number] ####[facility] (BEAKER)[address] [place] [address] Neutrophils (Bld) [#/Vol] 4.28 10*3/uL Normal 1.60-7.60 [facility] Comment on above: Performed By: #### L [id number] ####[facility] (BEAKER)[address], [place] [address] Neutrophils/100 WBC (Bld) 73.0 % High 40.0-72.0 [facility] Comment on above: Performed By: #### L [id number] ####[facility] (BEAKER)[address], [place] [address] NRBC (PER 100 WBCS) BY AUTOMATED COUNT 0.0 % Normal 0 [facility] Comment on above: Performed By: #### L [id number] ####[facility] (BEAKER)[address] [place] [address] PLATELETS (10*3/UL) IN BLOOD AUTOMATED COUNT 229 10*3/uL Normal 150-400 [facility] Comment on above: Performed By: #### L [id number] ####[facility] (BEAKER)[address], [place] [address] RBC (Bld) [#/Vol] 3.13 10*6/uL Low 3.80-5.00 [facility] Comment on above: Performed By: #### L [id number] ####[facility] (BEAKER)[address] [place] [address] WBC (Bld) [#/Vol] 5.86 10*3/uL Normal 4.00-10.60 [facility] Comment on above: Performed By: #### L [id number] ####[facility] (BEAKER)[address] [place] [address] Consulton 01-16-2024 Consult [id number] Mignon Montanez cinthia Leiva 1945 F Date Provider Department Center 01/16/2024 293-MYNOR GALLEGOS MP ORTHO MPORTHO Family History Problem Relation Age of Onset Other Mother Other Mother Heart attack Father's Sister Family Status - Relation Status Age at Mother Father's Sister Level of Service:86[address] CT OFFICE/OUTPATIENT ESTABLISHED LOW MDM 20 MIN Reason for Visit and Comments: Pain [136] - Pre-op R TKA Normal [facility] HEMOGLOBIN A1Con 01-16-2024 Glucose [Mass/Vol] 103 mg/dL Normal [facility] Comment on above: Performed By: #### L [id number] ####[facility] (BEAKER)[address] [place] [address] HbA1c (Bld) [Mass fraction] 5.2 % Normal 4.0-6.0 [facility] Comment on above: Performed By: #### L [id number] ####[facility] (BEAKER)[address] [place] [address] HPon 01-16-2024 Orthopedic Surgery Subjective Chief complaint: [...] the patient's ability to complete ADLs. Normal [facility] Labon 01-16-2024 Lab [id number] Mignon Montanez n E 1945 F Date Provider Department [place] 01/16/2024 2244-[facility] MP LAB RESOURCE DENY Schulte Family History Problem Relation Age of Onset Other Mother Other Mother Heart attack Father's Sister Family Status - Relation Status Age at Mother Father's Sister Normal [facility] Orders Onlyon 01-16-2024 Orders Only [id number] Mignon Montanez n E 1945 F Date Provider Department [place] 01/16/2024 1675-KENNA GAONA [facility] PAT [facility] C Family History Problem Relation Age of Onset Other Mother Other Mother Heart attack Father's Sister Family Status - Relation Status Age at Mother Father's Sister Normal [facility] PROTIME-INRon 01-16-2024 INR IN PPP BY COAGULATION ASSAY 1.34 High 0.90-1.10 [facility] Comment on above: Result Comment: ACCC [...] RANGE. CHEST 1995;108:[id number]-246S. Performed By: #### L [id number] ####[facility] (RYAN)[address] [place] [address] PROTHROMBIN TIME (PT) IN PPP BY COAGULATION ASSAY 16.6 Seconds High 12.3-14.8 [facility] Comment on above: Performed By: #### L [id number] ####[facility] (BEAKER)[address] [place] [address] TYPE AND SCREENon 01-16-2024 AB SCREEN Negative Normal [facility] Comment on above: Performed By: #### L [id number] #### [facility] BLOOD BANK , ABO group Nom (Bld) O Normal [facility] Comment on above: Performed By: #### L [id number] #### [facility] BLOOD BANK , RH TYPE IN BLOOD Positive Normal [facility] Comment on above: Performed By: #### L [id number] #### [facility] BLOOD BANK , URINALYSIS MICROSCOPIC WITH REFLEX CULTUREon 01-16-2024 CASTS IN URINE Normal [facility] Comment on above: Performed By: #### L [id number] ####[facility] (BEAKER)[address] [place] [address] CRYSTALS IN URINE Normal [facility] Comment on above: Performed By: #### L [id number] ####[facility] (BEAKER)[address] [place] [address] MUCUS (#/HPF) IN URINE SEDIMENT Occasional Normal None Seen, Occasional, Few [facility] Comment on above: Performed By: #### L [id number] ####[facility] (BEAKER)[address] [place] [address] OTHER MICROSCOPIC ELEMENTS Normal [facility] Comment on above: Performed By: #### L [id number] ####[facility] (BEAKER)[address] [place] [address] RBC (#/HPF) IN URINE SEDIMENT 0-2 Abnormal None Seen [facility] Comment on above: Performed By: #### L [id number] ####[facility] (BEAKER)[address] [place] [address] SQUAMOUS EPITHELIAL CELLS (#/HPF) IN URINE SEDIMENT Occasional Normal None Seen, Occasional [facility] Comment on above: Performed By: #### L [id number] ####[facility] ([facility])[address] [place] [address] WBC (LEUKOCYTE) (#/HPF) IN URINE SEDIMENT 3-5 Abnormal None Seen [facility] Comment on above: Performed By: #### L [id number] ####[facility] ([facility])[address] [place] [address] URINALYSIS WITH REFLEX CULTU REon 01-16-2024 BILIRUBIN, TOTAL PRESENCE IN URINE Negative Normal Negative [facility] Comment on above: Performed By: #### L [id number] ####[facility] ([facility])[address] [place] [address] Clarity (U) Clear Normal Clear [facility] Comment on above: Performed By: #### L [id number] ####[facility] ([facility])[address] [place] [address] Color (U) Yellow Normal Yellow [facility] Comment on above: Performed By: #### L [id number] ####[facility] ([facility])[address] [place] [address] Glucose (U) [Mass/Vol] Negative Normal Negative [facility] Comment on above: Performed By: #### L [id number] ####[facility] ([facility])[address] [place] [address] HEMOGLOBIN PRESENCE IN URINE Negative Normal Negative [facility] Comment on above: Performed By: #### L [id number] ####[facility] ([facility])[address] [place] [address] Ketones Ql (U) Negative Normal Negative [facility] Comment on above: Performed By: #### L [id number] ####[facility] ([facility])[address] [place] [address] LEUKOCYTE ESTERASE PRESENCE IN URINE BY TEST STRIP Trace Abnormal Negative [facility] Comment on above: Performed By: #### L [id number] ####[facility] ([facility])[address] [place] [address] NITRITE PRESENCE IN URINE Negative Normal Negative [facility] Comment on above: Performed By: #### L [id number] ####[facility] ([facility])[address] [place] [address] pH (U) 5.0 [pH] Normal 5.0-8.0 [facility] Comment on above: Performed By: #### L [id number] ####[facility] ([facility])[address] [place] [address] Protein (U) [Mass/Vol] Negative Normal Negative [facility] Comment on above: Performed By: #### L [id number] ####[facility] ([facility])[address] [place] [address] Specific gravity (U) [Rel density] 1.015 Normal 1.015-1.020 [facility] Comment on above: Performed By: #### L [id number] ####[facility] ([facility])[address] [place] [address] URINE CULTURE, ROUTINEon Bacteria identified Cx Nom (U) 50,000 - 100,000 CFU/ML Uro-Genital Quintin Normal [facility] Comment on above: Performed By: #### L [id number] ####[facility] ([facility])[address] [place] [address] Orders Onlyon 01-14-2024 Orders Only [id number] Mignon Montanez E 1945 F Date Provider Department Center 01/14/2024 612[facility] C Family History Problem Relation Age of Onset Other Mother Other Mother Heart attack Father's Sister Family Status - Relation Status Age at Mother Father's Sister Normal [facility] Office Visiton 01-07-2024 Follow-up visit [id number] Mignon Montanez E 1945 Date Provider Department Center 01/07/2024 3848-[facility]I [facility] Family History Problem Relation Age of Onset Other Mother Other Mother Heart attack Father's Sister Family Status - Relation Status Age at Mother Father's Sister Level of Service:72923 CT OFFICE/OUTPATIENT ESTABLISHED LOW MDM 20 MIN Reason for Visit and Comments: Follow-up [623280] - Patient needs cardiac clearance Normal [facility] Office Visiton 11-28-2023 Follow-up visit [id number] Mignon Montanez cinthia E 1945 Date Provider Department Center 11/28/2023 MYNOR SANDOVAL MP MPORTHO Family History Problem Relation Age of Onset Other Mother Other Mother Heart attack Father's Sister Family Status - Relation Status Age at Mother Father's Sister Level of Service:08882 CT OFFICE/OUTPATIENT ESTABLISHED MOD MDM 30 MIN Reason for Visit and Comments: Pain [136] - L tka F/U Normal [facility] Office Visiton 09-13-2023 Follow-up visit [id number] Mignon Montanez cinthia E 1945 Date Provider Department Center 09/13/2023 120-RIMA SERRATO MARTIN Page Family History Problem Relation Age of Onset Other Mother Other Mother Heart attack Father's Sister Family Status - Relation Status Age at Mother Father's Sister Level of Service:02518 CT OFFICE/OUTPATIENT ESTABLISHED MOD MDM 30-39 MIN Normal [facility] Office Visiton 08-29-2023 Follow-up visit [id number] Mignon Montanez cinthia E 1945 Provider Department Center 08/29/2023 MYNOR SANDOVAL MPRTHO Family History Problem Relation Age of Onset Other Mother Other Mother Heart attack Father's Sister Family Status - Relation Status Age at Mother Father's Sister Level of Service:14017 CT POSTOP FOLLOW UP VISIT RELATED TO ORIGINAL PX Reason for Visit and Comments: Pain [136] - L TKA Normal [facility] Office Visiton 07-25-2023 Follow-up visit [id number] Mignon Montanez cinthia E 1945 Date Provider Department Center 07/25/2023 MYNOR SANDOVAL MPRTHO Family History Problem Relation Age of Onset Other Mother Other Mother Heart attack Father's Sister Family Status - Relation Status Age at Mother Father's Sister Level of Service:86233 CT POSTOP FOLLOW UP VISIT RELATED TO ORIGINAL PX Reason for Visit and Comments: Post-op [483] Normal [facility] XR KNEE JUAN JOSE 3 Von 02-27-2023 XR KNEE JUAN JOSE 3 V EXAMINATION: XR KNEE JUAN JOSE 3 V HISTORY: Osteoarthritis of knee ; chronic bilateral knee pain COMPARISON: XR knee bilateral 04/20/2021 FINDINGS: RIGHT FINDINGS: BONES: Complete loss of the anterior, medial, lateral joint spaces with xayl-yk-baez articulation and marked sclerosis. Lateral subluxation of the tibial plafond in relation to the femoral condyles. Large periarticular degenerative osteophytes involving all 3 compartments. SOFT TISSUES: No visible soft tissue swelling. OTHER: Large joint effusion. LEFT FINDINGS: BONES: Marked narrowing of the anterior, medial, lateral joint spaces with near ihof-ti-asef articulation and subchondral sclerosis. Prominent lateral subluxation of the tibial plafond in relation to the femoral condyles. Large periarticular degenerative osteophytes involving all 3 compartments. SOFT TISSUES: No visible soft tissue swelling. OTHER: Large joint effusion. IMPRESSION: RIGHT CONCLUSION: Advanced degenerative joint disease. LEFT CONCLUSION: Advanced degenerative joint disease. Electronically authenticated by: SHILA RICHARDS Date: 2023-02-27 16:24 Normal [facility] CBC AUTO DIFFon 12-26-2022 BASO # 0.0 103/ul Normal 0.0-0.1 [facility] Comment on above: Performed By: #### C BC ####[facility] [address] [place] [address]Dr. Yilan Bustamante Basophils/100 WBC (Bld) 0.5 % Normal 0.2-2.0 [facility] Comment on above: Performed By: #### C BC ####[facility] [address] [place] [address]Dr. Yilan Bustamante EO # 0.2 103/ul Normal 0.0-0.7 [facility] Comment on above: Performed By: #### C BC ####[facility] [address] [place] [address]Dr. Yilan Bustamante Eosinophils/100 WBC (Bld) 3.2 % Normal 0.9-7.0 [facility] Comment on above: Performed By: #### C BC ####[facility] [address] [place], [place] [address]Dr. Malia Bustamante Erythrocyte distribution width (RBC) [Ratio] 13.5 % Normal 11.0-15.0 [facility] Comment on above: Performed By: #### C BC ####[facility] [address] [place], [place] [address]Dr. Malia Bustamante Hematocrit (Bld) [Volume fraction] 31.8 % Critically low 36.0-48.0 [facility] Comment on above: Performed By: #### C BC ####[facility] [address] [place], [place] [address]Dr. Malia Bustamante Hemoglobin (Bld) [Mass/Vol] 10.1 g/dL Critically low 12.0-16.0 [facility] Comment on above: Performed By: #### C BC ####[facility] [address] [place], [place] [address]Dr. Malia Bustamante IG # 0.02 10e3/ul Normal 0.00-0.03 [facility] Comment on above: Performed By: #### C BC ####[facility] [address] [place], [place] [address]Dr. Malia Robby IG % 0.4 % Normal 0.0-0.5 [facility] Comment on above: Performed By: #### C BC ####[facility] [address] [place], [place] [address]Dr. Malia Robby LYMPH # 0.8 103/ul Critically low 1.2-3.[address] [facility] Comment on above: Performed By: #### C BC ####[facility] [address] [place], [place] [address]Dr. Malia Robby Lymphocytes/100 WBC (Bld) 13.8 % Critically low 20.5-60.0 [facility] Comment on above: Performed By: #### C BC ####[facility] [address] [place], [place] [address]Dr. Flakitatahir Bustamante MANUAL DIFF REQ NO Normal [facility] Comment on above: Performed By: #### C BC ####[facility] [address] [place], [place] [address]Dr. Malia Bustaamnte MCH (RBC) [Entitic mass] 32.0 pg Normal 26.7-34.0 [facility] Comment on above: Performed By: #### C BC ####[facility] [address] [place] [address]Dr. Malia Bustamante MCHC (RBC) [Mass/Vol] 31.8 g/dL Normal 29.9-35.2 [facility] Comment on above: Performed By: #### C BC ####[facility] [address] [place] [address]Dr. Malia Bustamante MCV (RBC) [Entitic vol] 100.6 fL Critically high 81.0-99.0 [facility] Comment on above: Performed By: #### C BC ####[facility] [address] [place] [address]Dr. Malia Robby MONO # 0.4 103/ul Normal 0.3-0.8 [facility] Comment on above: Performed By: #### C BC ####[facility] [address] [place] [address]Dr. Malia Robby Monocytes/100 WBC (Bld) 7.9 % Normal 1.7-12.0 [facility] Comment on above: Performed By: #### C BC ####[facility] [address] [place] [address]Dr. Malia Bustamante NEUT # 4.2 103/ul Normal 1.4-6.5 [facility] Comment on above: Performed By: #### C BC ####[facility] [address] [place] [address]Dr. Malia Robby Neutrophils/100 WBC (Bld) 74.2 % Normal 43.0-75.0 [facility] Comment on above: Performed By: #### C BC ####[facility] [address] [place] [address]Dr. Malia Bustamante Platelet mean volume (Bld) [Entitic vol] 11.2 fL Normal 9.5-13.5 [facility] Comment on above: Performed By: #### C BC ####[facility] [address] [place] [id number]. Malia Bustamante PLT 165 103/ul Normal 150-450 [facility] Comment on above: Performed By: #### C BC ####[facility] [address] [place] [address]Dr. Malia Bustamante RBC 3.16 106/ul Critically low 4.20-5.40 [facility] Comment on above: Performed By: #### C BC ####[facility] [address] [place] [id number]. Malia Bustamante WBC 5.6 103/ul Normal 4.0-11.0 [facility] Comment on above: Performed By: #### C BC ####[facility] [address] [place], [place] [address]Dr. Flakitatahir Bustamante PROF CHEM 8 (BAS METB)on Anion gap [Moles/Vol] 16.3 mmol/L Normal [facility] Comment on above: Performed By: #### B MP ####[facility] [address] [place], [place] [address]Dr. Malia Robby Calcium [Mass/Vol] 11.1 mg/dL Critically high 8.5-10.1 [facility] Comment on above: Performed By: #### B MP ####[facility] [address] [place] [address]Dr. Malia Bustamante Chloride [Moles/Vol] 113 mmol/L Critically high 98-107 [facility] Comment on above: Performed By: #### B MP ####[facility] [address] [place] [address]Dr. Flakitatahir Bustamante CO2 [Moles/Vol] 22.9 mmol/L Normal 21.0-32.0 [facility] Comment on above: Performed By: #### B MP ####[facility] [address] [place], [place] [address]Dr. Malia Robby Creatinine [Mass/Vol] 1.84 mg/dL Critically high 0.55-1.02 [facility] Comment on above: Performed By: #### B MP ####[facility] [address] [place] [id number]. Malia Bustamante EGFR-AF [place]ANDER 32 mL/min/1.73m2 Critically low >=60 [facility] Comment on above: Performed By: #### B MP ####[facility] [address] [place] [id number]. Malia Bustamante EGFR-NON AF [place]ANDER 27 mL/min/1.73m2 Critically low >=60 [facility] Comment on above: Performed By: #### B MP ####[facility] [address] [place] [address]Dr. Malia Bustamante Glucose [Mass/Vol] 97 mg/dL Normal 74-106 [facility] Comment on above: Performed By: #### B MP ####[facility] [address] [place] [address]Dr. Malia Bustamante Potassium [Moles/Vol] 5.2 mmol/L Critically high 3.5-5.1 [facility] Comment on above: Performed By: #### B MP ####[facility] [address] [place] [address]Dr. Malia Bustamante Sodium [Moles/Vol] 147 mmol/L Critically high 136-145 [facility] Comment on above: Performed By: #### B MP ####[facility] [address] [place] [address]Dr. Malia Bustamante Urea nitrogen [Mass/Vol] 42.0 mg/dL Critically high 7.0-18.0 [facility] Comment on above: Performed By: #### B MP ####[facility] [address] [place] [address]Dr. Malia Bustamante Urea nitrogen/Creatinine [Mass ratio] 22.8 mg/mg Normal [facility] Comment on above: Performed By: #### B MP ####[facility] Y[address]ie[address]fl[address] [place], [place] [address]Dr. Malia Bustamante US KIDNEYS BLADDERon 023 US KIDNEYS BLADDER US KIDNEYS BLADDER EXAM DATE: 12/08/2022 6:55 AM MST COMPARISON: None available. INDICATION: Chronic kidney disease. TECHNIQUE: Real-time ultrasound scanning of the kidneys and bladder was performed by the disability advocate. Leadership Development Manager static images are submitted for review. FINDINGS: [...] PAMELA PECK Date: 2022-12-08 13:20 Normal [facility] CULTURE URINEon 12-01-2022 CULTURE URINE Culture Observations : LIGHT GROWTH OF MIXED GENITAL QUINTIN. NO POTENTIAL PATHOGENS SEEN. Normal [facility] Comment on above: Performed By: #### U RCX ####[facility] [address] [place] [address]Dr. Malia Bustamante MICROALBUMIN, RAND URon 03-0 mALB 1.7 mg/L Normal <=30.0 [facility] Comment on above: Performed By: #### M ALBR ####[facility] [address] [address]Dr. Malia Bustamante UA RANDOM W/MICROSCOPICon BACTERIA NONE SEEN Normal NONE SEEN [facility] Comment on above: Performed By: #### U AMIC ####[facility] [address] [id number]. Malia Bustamante Bilirubin Ql (U) Negative Normal NEGATIVE [facility] Comment on above: Performed By: #### U AMIC ####[facility] [address] [id number]. Malia Bustamante CAST NONE SEEN Normal NONE SEEN [facility] Comment on above: Performed By: #### U AMIC ####[facility] [address] [place] [address]Dr. Malia Bustamante Clarity (U) CLEAR Normal CLEAR [facility] Comment on above: Performed By: #### U AMIC ####[facility] [address] [place] [address]Dr. Flakitatahir Bustamante Color (U) LT. YELLOW Normal YELLOW [facility] Comment on above: Performed By: #### U AMIC ####[facility] [address] [place] [address]Dr. Malia Bustamante Crystals LM Nom (Urine sed) NONE SEEN Normal NONE SEEN [facility] Comment on above: Performed By: #### U AMIC ####[facility] [address] [place], [place] [address]Dr. Malia Bustamante Epithelial cells LM Ql (Urine sed) FEW Abnormal NONE SEEN /RARE [facility] Comment on above: Performed By: #### U AMIC ####[facility] [address] [place], [place] [address]Dr. Flakitatahir Bustamante Glucose Ql (U) Negative Normal NEGATIVE [facility] Comment on above: Performed By: #### U AMIC ####[facility] Pf[address] [place], [place] [address]Dr. Flakitatahir Bustamante Hemoglobin Ql (U) Negative Normal NEGATIVE [facility] Comment on above: Performed By: #### U AMIC ####[facility] [address] [place] [address]Dr. Malia Bustamante Ketones Ql (U) Negative Normal NEGATIVE The [facility] Comment on above: Performed By: #### U AMIC ####[facility] [address] [place] [address]Dr. Flakitalan Bustamante LEUKOCYTES Negative Normal NEGATIVE [facility] Comment on above: Performed By: #### U AMIC ####[facility] [address] [place] [address]Dr. Flakitalan Bustamante MUCOUS NONE SEEN Normal NONE SEEN [facility] Comment on above: Performed By: #### U AMIC ####[facility] [address] [place] [address]Dr. Malia Bustamante Nitrite Ql (U) Negative Normal NEGATIVE The [facility] Comment on above: Performed By: #### U AMIC ####[facility] [address] [place] [address]Dr. Malia Bustamante pH (U) 5.5 [pH] Normal 5-9 [facility] Comment on above: Performed By: #### U AMIC ####[facility] [address] [place] [address]Dr. Malia Bustamante RBC NONE SEEN Abnormal 0-2 [facility] Comment on above: Performed By: #### U AMIC ####[facility] [address] [place] [address]Dr. Malia Bustamante SPEC GRAVITY 1.020 Normal 1.005-<=1.025 [facility] Comment on above: Performed By: #### U AMIC ####[facility] [address] [place] [address]Dr. Malia Bustamante UA PROTEIN Negative Normal NEGATIVE/ TRACE [facility] Comment on above: Performed By: #### U AMIC ####[facility] [address] [place] [address]Dr. Malia Bustamante Urobilinogen Qn (U) 0.2 {Álvaro'U}/dL Normal 0.2 - 1. 0 [facility] Comment on above: Performed By: #### U AMIC ####[facility] [address] [place] [address]Dr. Malia Bustamante WBC NONE SEEN Normal NONE SEEN [facility] Comment on above: Performed By: #### U AMIC ####[facility] [address] [address]Dr. Malia Bustamante ECHOCARDIO M/2D COMPLETEon 0 11-01-2022 ECHOCARDIO M/2D COMPLETE Patient: LIZABETH MONTANEZ Exam Date: 11/01/2022 : 1945 Gender:F Ordering : DR ISAK BONE . Admission #: [id number] Family : Order #: [id number] CLICK HERE TO VIEW EXAM ECHOCARDIOGRAM REPORT [...] M.D. on 11/02/2022 at 11:25 Normal [facility] INSULINon 10-30-2022 Insulin 11.5 uIU/mL Normal 2.6-24.9 [facility] Comment on above: Performed By: #### I NSULIN #### [facility] [address] [place] [address] Dr. Malia Bustamante BNPon 10-29-2022 Natriuretic peptide B (Bld) [Mass/Vol] 4315.0 pg/mL Critically high <=1,800.0 [facility] Comment on above: Performed By: #### L IPID, CMP, TSH, T7, BNP #### [facility] [address] [place] [address] Dr. Malia Bustamante CBC AUTO DIFFon 10-29-2022 BASO # 0.0 103/ul Normal 0.0-0.1 [facility] Comment on above: Performed By: #### C BC #### [facility] [address] [place] [address] Dr. Malia Bustamante Basophils/100 WBC (Bld) 0.6 % Normal 0.2-2.0 [facility] Comment on above: Performed By: #### C BC #### [facility] [address] [place] [address] Dr. Malia Bustamante EO # 0.1 103/ul Normal 0.0-0.7 [facility] Comment on above: Performed By: #### C BC #### [facility] [address] [place] [address] Dr. Malia Bustamante Eosinophils/100 WBC (Bld) 1.6 % Normal 0.9-7.0 [facility] Comment on above: Performed By: #### C BC #### [facility] [address] [place] [address] Dr. Malia Bustamante Erythrocyte distribution width (RBC) [Ratio] 13.1 % Normal 11.0-15.0 [facility] Comment on above: Performed By: #### C BC #### [facility] [address] [place] [address] Dr. Malia Bustamante Hematocrit (Bld) [Volume fraction] 31.3 % Critically low 36.0-48.0 [facility] Comment on above: Performed By: #### C BC #### [facility] [address] [place] [address] Dr. Malia Bustamante Hemoglobin (Bld) [Mass/Vol] 10.3 g/dL Critically low 12.0-16.0 [facility] Comment on above: Performed By: #### C BC #### [facility] [address] [place] [address] Dr. Malia Bustamante IG # 0.03 10e3/ul Normal 0.00-0.03 [facility] Comment on above: Performed By: #### C BC #### [facility] [address] [place] [address] Dr. Malia Bustamante IG % 0.5 % Normal 0.0-0.5 [facility] Comment on above: Performed By: #### C BC #### [facility] [address] [place] [address] Dr. Malia Bustamante LYMPH # 0.7 103/ul Critically low 1.2-3.8 [facility] Comment on above: Performed By: #### C BC #### [facility] [address] [place] [address] Dr. Malia Bustamante Lymphocytes/100 WBC (Bld) 10.1 % Critically low 20.5-60.0 [facility] Comment on above: Performed By: #### C BC #### [facility] [address] [place] [address] Dr. Malia Bustamante MANUAL DIFF REQ NO Normal [facility] Comment on above: Performed By: #### C BC #### [facility] [address] [place] [address] Dr. Malia Bustamante MCH (RBC) [Entitic mass] 32.0 pg Normal 26.7-34.0 [facility] Comment on above: Performed By: #### C BC #### [facility] [address] [place] [address] Dr. Malia Bustamante MCHC (RBC) [Mass/Vol] 32.9 g/dL Normal 29.9-35.2 [facility] Comment on above: Performed By: #### C BC #### [facility] [address] [place] [address] Dr. Malia Bustamante MCV (RBC) [Entitic vol] 97.2 fL Normal 81.0-99.0 [facility] Comment on above: Performed By: #### C BC #### [facility] [address] [place] [address] Dr. Malia Bustamante MONO # 0.5 103/ul Normal 0.3-0.8 [facility] Comment on above: Performed By: #### C BC #### [facility] [address] [place] [address] Dr. Malia Bustamante Monocytes/100 WBC (Bld) 7.3 % Normal 1.7-12.0 [facility] Comment on above: Performed By: #### C BC #### [facility] [address] [place] [address] Dr. Malia Bustamante NEUT # 5.2 103/ul Normal 1.4-6.5 [facility] Comment on above: Performed By: #### C BC #### [facility] [address] [place] [address] Dr. Malia Bustamante Neutrophils/100 WBC (Bld) 79.9 % Critically high 43.0-75.0 [facility] Comment on above: Performed By: #### C BC #### [facility] [address] [place] [address] Dr. Malia Bustamante Platelet mean volume (Bld) [Entitic vol] 11.4 fL Normal 9.5-13.5 [facility] Comment on above: Performed By: #### C BC #### [facility] [address] [place] [address] Dr. Malia Bustamante PLT 198 103/ul Normal 150-450 [facility] Comment on above: Performed By: #### C BC #### [facility] [address] [place] [address] Dr. Malia Bustamante RBC 3.22 106/ul Critically low 4.20-5.40 [facility] Comment on above: Performed By: #### C BC #### [facility] [address] [place] [address] Dr. Malia Bustamante WBC 6.4 103/ul Normal 4.0-11.0 [facility] Comment on above: Performed By: #### C BC #### [facility] [address] [place] [address] Dr. Malia Bustamante FREE THYROXINE INDEX T7on FTI 3.26 Normal 1.30-4.50 [facility] Comment on above: Performed By: #### L IPID, CMP, TSH, T7, BNP #### [facility] [address] [address] [address] Malia Bustamante T3U 35.0 % Normal 30.0-39.0 [facility] Comment on above: Performed By: #### L IPID, CMP, TSH, T7, BNP #### [facility] [address] [address] [address] Malia Bustamante T4 [Mass/Vol] 9.30 ug/dL Normal 4.80-13.90 [facility] Comment on above: Performed By: #### L IPID, CMP, TSH, T7, BNP #### [facility] [address] [address] [address] Malia Bustamante GLYCOHEMOGLOBIN A1Con 2022 ADA RECOMMENDATION SEE BELOW Normal [facility] Comment on above: Result Comment: ADA RECOMMENDED LIMIT 4.0 - 6.0 ADA THERAPEUTIC TARGET < 7.0 ACTION SUGGESTED > 7.0 Performed By: #### A 1C #### [facility] [address] [address] [address] Malia Bustamante Glucose [Mass/Vol] 97 mg/dL Normal [facility] Comment on above: Performed By: #### A 1C #### [facility] [address] [address] [address] Malia Bustamante HbA1c (Bld) [Mass fraction] 5.0 % Normal 4.5-6.2 [facility] Comment on above: Performed By: #### A 1C #### [facility] [address] [address] [address] Malia Bustamante IRONon 10-29-2022 Iron [Mass/Vol] 78.0 ug/dL Normal 50.0-170.0 [facility] Comment on above: Performed By: #### I KUN BLUE ####[facility] [address] [address]Dr. Malia Bustamante LIPID PROFILEon 10-29-2022 CHOL-HDL RATIO NORM SEE BELOW Normal [facility] Comment on above: Result Comment: 3.3 - 4.4 LOW RISK 4.4 - 7.1 AVERAGE RISK 7.1 - 11.0 MODERATE RISK >11.0 HIGH RISK Performed By: #### L IPID, CMP, TSH, T7, BNP #### [facility] [address] [address] [address] Malia Bustamante Cholesterol [Mass/Vol] 131 mg/dL Normal <=200 [facility] Comment on above: Performed By: #### L IPID, CMP, TSH, T7, BNP #### [facility] [address] [address] [address] Malia Bustamante Cholesterol in HDL [Mass/Vol] 51 mg/dL Normal 40-60 [facility] Comment on above: Performed By: #### L IPID, CMP, TSH, T7, BNP #### [facility] [address] [place] [address] Dr. Malia Bustamante Cholesterol in LDL [Mass/Vol] 59.0 mg/dL Normal [facility] Comment on above: Performed By: #### L IPID, CMP, TSH, T7, BNP #### [facility] [address] [address] [address] Malia Bustamante Cholesterol.total/C holesterol in HDL [Mass ratio] 2.6 {ratio} Normal [facility] Comment on above: Performed By: #### L IPID, CMP, TSH, T7, BNP #### [facility] [address] [address] [address] Malia Bustamante HDL NORMAL > or = 60 mg/dl - LO W CARDIOVASCULAR RISK <40 mg/dl - HIGH CARDIOVASCULAR RISK Normal [facility] Comment on above: Performed By: #### L IPID, CMP, TSH, T7, BNP #### [facility] [address] [address] [address] Malia Bustamante LDL CALC NORMAL SEE BELOW Normal [facility] Comment on above: Result Comment: <100 mg/dl OPTIMAL 100 - 129 mg/dl NEAR OR ABOVE OPTIMAL 130 - 159 mg/dl BORDERLINE HIGH 160 - 189 mg/dl HIGH >190 mg/dl VERY HIGH Performed By: #### L IPID, CMP, TSH, T7, BNP #### [facility] [address] [address] [address] Malia Bustamante Triglyceride [Mass/Vol] 105 mg/dL Normal <=150 [facility] Comment on above: Performed By: #### L IPID, CMP, TSH, T7, BNP #### [facility] [address] [place] [address] Dr. Malia Bustamante VLDL CALC 21.0 mg/dL Normal [facility] Comment on above: Performed By: #### L IPID, CMP, TSH, T7, BNP #### [facility] [address] [place] [address] Dr. Malia Bustamante PROF 14(COMP METB)on 023 Albumin [Mass/Vol] 3.8 g/dL Normal 3.4-5.0 [facility] Comment on above: Performed By: #### L IPID, CMP, TSH, T7, BNP #### [facility] [address] [place] [address] Dr. Malia Bustamante Albumin/Globulin [Mass ratio] 1.2 {ratio} Normal [facility] Comment on above: Performed By: #### L IPID, CMP, TSH, T7, BNP #### [facility] [address] [place] [address] Dr. Malia Bustamante ALP [Catalytic activity/Vol] 53 U/L Normal 46-116 [facility] Comment on above: Performed By: #### L IPID, CMP, TSH, T7, BNP #### [facility] [address] [place] [address] Dr. Malia Bustamante ALT [Catalytic activity/Vol] 16 U/L Normal 14-59 [facility] Comment on above: Performed By: #### L IPID, CMP, TSH, T7, BNP #### [facility] [address] [place] [address] Dr. Malia Bustamante Anion gap [Moles/Vol] 15.0 mmol/L Normal [facility] Comment on above: Performed By: #### L IPID, CMP, TSH, T7, BNP #### [facility] [address] [address] [address] Malia Bustamante AST [Catalytic activity/Vol] 18 U/L Normal 15-37 [facility] Comment on above: Performed By: #### L IPID, CMP, TSH, T7, BNP #### [facility] [address] [place] [address] Dr. Malia Bustamante Bilirubin [Mass/Vol] 0.4 mg/dL Normal 0.2-1.0 [facility] Comment on above: Performed By: #### L IPID, CMP, TSH, T7, BNP #### [facility] [address] [address] [address] Malia Bustamante Calcium [Mass/Vol] 10.3 mg/dL Critically high 8.5-10.1 [facility] Comment on above: Performed By: #### L IPID, CMP, TSH, T7, BNP #### [facility] [address] [place] [address] Dr. Malia Bustamante Chloride [Moles/Vol] 110 mmol/L Critically high 98-107 [facility] Comment on above: Performed By: #### L IPID, CMP, TSH, T7, BNP #### [facility] [address] [address] [address] Malia Bustamante CO2 [Moles/Vol] 21.6 mmol/L Normal 21.0-32.0 [facility] Comment on above: Performed By: #### L IPID, CMP, TSH, T7, BNP #### [facility] [address] [place] [address] Dr. Malia Bustamante Creatinine [Mass/Vol] 1.53 mg/dL Critically high 0.55-1.02 [facility] Comment on above: Performed By: #### L IPID, CMP, TSH, T7, BNP #### [facility] [address] [place] [address] Dr. Malia Bustamante EGFR-AF NEW ZEALANDER 40 mL/min/1.73m2 Critically low >=60 [facility] Comment on above: Performed By: #### L IPID, CMP, TSH, T7, BNP #### [facility] [address] [place], [place] [id number] Dr. Malia Bustamante EGFR-NON AF NEW ZEALANDER 33 mL/min/1.73m2 Critically low >=60 [facility] Comment on above: Performed By: #### L IPID, CMP, TSH, T7, BNP #### [facility] [address] [place] [address] Dr. Malia Bustamante Globulin (S) [Mass/Vol] 3.2 g/dL Normal [facility] Comment on above: Performed By: #### L IPID, CMP, TSH, T7, BNP #### [facility] [address] [place] [address] Dr. Malia Bustamante Glucose [Mass/Vol] 106 mg/dL Normal 74-106 [facility] Comment on above: Performed By: #### L IPID, CMP, TSH, T7, BNP #### [facility] [address] [place] [address] Dr. Malia Bustamante Potassium [Moles/Vol] 4.6 mmol/L Normal 3.5-5.1 [facility] Comment on above: Performed By: #### L IPID, CMP, TSH, T7, BNP #### [facility] [address] [place] [address] Dr. Malia Bustamante Protein [Mass/Vol] 7.0 g/dL Normal 6.4-8.2 [facility] Comment on above: Performed By: #### L IPID, CMP, TSH, T7, BNP #### [facility] [address] [place] [address] Dr. Malia Bustamante Sodium [Moles/Vol] 142 mmol/L Normal 136-145 [facility] Comment on above: Performed By: #### L IPID, CMP, TSH, T7, BNP #### [facility] [address] [place] [address] Dr. Malia Bustamante Urea nitrogen [Mass/Vol] 38.0 mg/dL Critically high 7.0-18.0 [facility] Comment on above: Performed By: #### L IPID, CMP, TSH, T7, BNP #### [facility] [address] [place] [address] Dr. Malia Bustamante Urea nitrogen/Creatinine [Mass ratio] 24.8 mg/mg Normal [facility] Comment on above: Performed By: #### L IPID, CMP, TSH, T7, BNP #### [facility] [address] [address] [address] Malia Bustamante TSHon 10-29-2022 TSH 2.124 uIU/mL Normal 0.358-3.740 [facility] Comment on above: Performed By: #### L IPID, CMP, TSH, T7, BNP #### [facility] [address] [address] [address] Malia Bustamante VITAMIN D 25 OHon 10-29-2022 VIT D 25-OH 69.6 ng/mL Normal [facility] Comment on above: Performed By: #### I MIRZA VITPETERSON ####[facility] [address] [place], [place] [address]Dr. Malia Bustamante VIT D RANGES SEE BELOW Normal [facility] Comment on above: Result Comment: <20 ng/mL Vit D deficient 20 - <30 ng/mL Vit D insufficient 30 - 100 ng/mL Vit D sufficient >100 ng/mL Potential Toxicity Performed By: #### I MIRZA VITPETERSON ####[facility] [address] [place], [place] [address]Dr. Malia Bustamante CALCIUMon 09-05-2022 Calcium [Mass/Vol] 10.5 mg/dL Critically high 8.5-10.1 [facility] Comment on above: Performed By: #### MARIO Obando ####[facility] [address] [address]Dr. Malia Bustamante CREATININEon 09-05-2022 Creatinine [Mass/Vol] 1.60 mg/dL Critically high 0.55-1.02 [facility] Comment on above: Performed By: #### MARIO Obando ####[facility] [address] [place], [place] [address]Dr. Malia Bustamante EGFR-AF NEW ZEALANDER 38 mL/min/1.73m2 Critically low >=60 [facility] Comment on above: Performed By: #### C A, CREA ####[facility] [address] [place], [place] [address]Et. Malia Bustamante EGFR-NON AF NEW ZEALANDER 31 mL/min/1.73m2 Critically low >=60 [facility] Comment on above: Performed By: #### C Marbella, CREA ####[facility] [address] [place], [place] [address]Yn. Malia Bustamante MG MAMM SCREEN 3D JUAN JOSE CADon 05-25-2022 MG MAMM SCREEN 3D JUAN JOSE CAD Patient: LIZABETH MONTANEZ Exam Date: 05/25/2022 : 1945 Gender:F Ordering : DR ISAK BONE . Admission #: [id number] Family : Order #: [id number] CLICK HERE TO VIEW EXAM RADIOLOGY REPORT [...] breast cancer at age 61. LOCATION: [facility] BREAST COMPOSITION: Heterogeneously dense,which may obscure small [...] Richards M.D. on 05/25/2022 at 14:19 Normal [facility] Encounters Encounter Date Encounter Type Care Provider Facility Start: 05-15-2024 End: 05-15-2024 ambulatory [facility] Start: 03-12-2024 End: 03-12-2024 ambulatory [facility] Start: 03-02-2024 End: 03-02-2024 ambulatory [facility] Start: 02-06-2024 ambulatory [facility] Start: 01-24-2024 Evaluation and manag ement of inpatient [facility] Start: 01-24-2024 End: 01-30-2024 Evaluation and management of inpatient [facility] Start: 01-16-2024 End: 01-16-2024 ambulatory [facility] Start: 01-16-2024 Encounter for preprocedural laboratory examination [facility] Start: 01-07-2024 End: 01-07-2024 ambulatory [facility] Start: 11-28-2023 End: 11-28-2023 ambulatory [facility] Start: 11-28-2023 End: 11-28-2023 ambulatory [facility] Start: 09-13-2023 End: 09-13-2023 [facility] Start: 08-29-2023 End: 08-29-2023 ambulatory [facility] Start: 07-25-2023 ambulatory [facility] Start: 02-27-[address] ISAK BONE . Facili ty:[facility] Start: 12-28-2022 Encounter for other preprocedural examination YENI UGALDE [facility] Start: 12-26-2022 End: 12-27-2022 ambulatory YENI UGALDE Facility:[facility] Start: 12-26-2022 End: 12-27-2022 Encounter for other preprocedural examination YENI UGALDE Facility:[facility] Start: 12-08-2022 End: 12-09-[address] ISAK BONE . Facility:[facility] Start: 12-01-2022 End: 12-02-[address] ISAK BONE . Facility:[facility] Start: 11-07-[address] ISAK BONE . Facili ty:[facility] Start: 11-01-2022 End: 11-02-[address] ISAK BONE . Facility:[facility] Start: 10-29-2022 End: 10-30-[address] ISAK BONE . Facility:[facility] Start: 09-05-2022 End: 09-05-[address] ISAK BONE . Facility:[facility] Start: 05-25-2022 End: 05-26-[address] ISAK BONE . Facility:[facility] Start: 10-28-2017 Ambulatory [facility] Start: 06-06-2017 End: 06-07-2017 Ambulatory DEFAULT PHYSICIAN Facility:[facility] Procedures Date Procedure Procedure Detail Performing Clinician Start: 05-15-2024 Follow-up visit Follow-up YENI UGALDE Payers Date Payer Category Payer Medicare [id number] 1958 Self-pay 1945 Unknown [id number] 2.16.84 [id number] 1945 Unknown [id number] 2.16.84 [id number] 1945 Unknown [id number] 2.16.84 [id number] 1945 Unknown [id number] 2.16.84 [id number] 1945 Unknown [id number] 2.16.84 [id number] 1945 Unknown [id number] 2.16.84 [id number] 1945 Unknown [id number] 2.16.84 [id number] 1945 Unknown [id number] 2.16.84 [id number] 1945 Unknown [id number] 2.16.84 [id number] Unknown Clinical Notes 07-25-2023 to 05-15-2024 Note Date & Type Note Facility 05-15-2024 Note Follow up from getting a echo [facility] 05-15-2024 Note UTP CARDIOLOGY PROGR ESS NOTE [...] provided. Patient verbalizes understanding Yeni Ugalde MD [facility] 03-12-2024 Note Orthopedic Surgery Subjective 01/24/2024 [...] ensure accurate documentation. Additional Comments: none Mynor [facility] 02-06-2024 Note Orthopedic Surgery Subjective 01/24/2024 [...] for anticoagulation, also educated to continue with JOHNIE wraps for edema control and use of the polar care to reduce swelling -Educated patient that they should not drive until the 6 weeks postoperative ortega -Continue WBAT with use of the walker, continue with physical therapy, new Rx provided for outpatient PT -RTC in 4 weeks and will obtain new XR of the R knee at that time The patient understands and agrees to the management plan, and all patient questions have been answered to his/her satisfaction. Ruslan Ortez MD Orthopaedic Surgery, PGY-V 02/06/2024 By [...] be an additional personal documentation from me. [facility] 01-30-2024 Note Physical Therapy Physical Therapy [...] T-Score: 18 - (more content not included)... [facility] 01-30-2024 Note ------ Attestation signed by [...] Ruslan Ortez MD Orthopaedic Surgery, PGY-V 01/30/2024 [facility] 01-30-2024 Note Followed up with pt on SNF vs. HHC and pt decided to discharge home today w/ HHC. Requested [facility], referral sent. UPDATE 11:10AM- [facility] has accepted. Sent final AVS. [facility] 01-30-2024 Note Occupational Therapy Occupational Therapy Treatment Note Patient Name: Lizabeth Montanez Patient Date of : 1945 Today's Date: 01/30/24 Time in: 817 Time Out: 911 Total Time: 54 Active Ambulatory Problems Diagnosis [...] in chair at [facility] OT Discharge Recommendation Long Term Facility vs home with assist OT Equipment [...] change brief. Pt has sock aid and venereal disease control head at home to use with LB dressing [...] to complete g (more content not included)... [facility] 01-29-2024 Note Discharge Planning U pdate OTM team notified that IPR placement was denied. I (drug abuse social worker) along with RUC met with patient bedside to discuss discharge planning. Patient states she is feeling good and believes she should be able to return home. We took the time to explain SNF & HHC to patient. She reports she has a history of HHC through [facility]. She was encouraged to think about the direction she would like to go and floor drug abuse social worker will follow up tomorrow. She showed understanding and was agreeable. She was also provided a SNF list to review. After today's conversation, it appears that patient is leaning towards going home, with C assistance. New discharge disposition: HHC vs. SNF [facility] 01-29-2024 Note Sent updates to [facility] IPR and awaiting pre-cert which was started on 01/26. [facility] 01-29-2024 Note GIM Inpatient Progre ss [...] from last 7 days Lab Units 01/29/24 0701/28/2453001/27/24620 WBC AUTO 10*3/uL 8.63 9.46 9.08 HEMOGLOBIN g/dL 7.8* 8.4* 8.2* HEMATOCRIT % 24.1* 25.3* 25.3* PLATELETS AUTO 10*3/uL 218 197 196 Results from last 7 days Lab Units 01/29/2471101/28/24 0531 01/27/24 0621 01/26/24 1231 SODIUM mmol/L [...] , ABGPO2 , ABGHCO3 , ABGBASEDEFIC , [id number] , ABGOXYGENSOU No lab exists for component: [...] and Entresto. Patient can follow-up with her personal banking representative to have these resumed in the future if necessary. Discharge planning to [facility] SHILPI STEINER MD, PGY-2, DEPARTMENT OF INTERNAL M (more content not included)... [facility] 01-28-2024 Note ------ Attestation signed by Lanrdy Mercado MD at 01/29/2024 8:33 AM By [...] Montanez Age - 78 y.o. - 1945 [facility] # - [id number] Date of Admission - 01/24/2024 5:39 AM [...] Units 01/28/24 0531 01/27/24 0621 01/26/24 1231 WBC AUTO 10*3/uL 9.46 9.08 11.31* HEMOGLOBIN g/dL 8.4* 8.2* 8.5* HEMATOCRIT % 25.3* 25.3* 26.5* PLATELETS AUTO 10*3/uL 197 196 199 Results from last 7 days Lab Units 01/28/24 0531 01/27/24 0621 01/26/24 1231 SODIUM mmol/L 134* 136 135* POTASSIUM mmol/L 4.6 4.4 4.2 CHLORIDE mmol/L 104 106 104 CO2 mmol/L BUN mg/dL 49* 58* 60* CREATININE mg/dL [...] , ABGPO2 , ABGHCO3 , ABGBASEDEFIC , [id number] , ABGOXYGENSOU No lab exists for component: [...] A-fib (on EQ) (more content not included)... [facility] 01-28-2024 Note Physical Therapy Physical Therapy [...] and agreeable to activities as able. RN okays session. Vision - Basic Vision - Basic [...] Help from ano (more content not included)... [facility] 01-28-2024 Note Occupational Therapy Occupational Therapy [...] at [facility] Objective 2 OT Discharge Recommendation Long Term Facility OT Equipment Recommendations TBD General Pain [...] to recliner with hands on for safety. Rotary Drum Dyer notes pt requires increased time. No LOB [...] with no assistance (more content not included)... [facility] 01-27-2024 Note DISCHARGE PLANNING U ALEE Lott (drug abuse social worker) spoke to admissions team at [facility]. They confirmed that they submitted for insurance authorization. Updates sent via VoAPPs. Discharge barriers: medical readiness/stability, insurance authorization [facility] 01-27-2024 Note Physical Therapy Physical Therapy [...] rest, but reports increase with mobility. RN okays session including up in bedside chair. Vision [...] Assistance 2: Conta (more content not included)... [facility] 01-27-2024 Note ------ Attestation signed by Isak Hinojosa MD at 01/27/2024 1:13 PM By using [...] from me. Reviewed and approved by ISAK HINOJOSA on 01/27/24 at 1:10 PM. ------ GI Inpatient Progress Note Patient - Lizabeth Montanez Age - 78 y.o. - 1945 [facility] # - [id number] Date of Admission - 01/24/2024 5:39 AM [...] , ABGPO2 , ABGHCO3 , ABGBASEDEFIC , [id number] , ABGOXYGENSOU No lab exists for component: [...] Mild hyponatremia, likel (more content not included)... [facility] 01-27-2024 Note Occupational Therapy Occupational Therapy [...] in chair) Objective 2 OT Discharge Recommendation Long Term Facility OT Equipment Recommendations TBD General Pain [...] 01/25/24 [place] Star (more content not included)... [facility] 01-26-2024 Note Followed up with pt on IPR decision. Pt agreeable and would like to try for [facility]. Advised pt of referral/pre-cert process and also warned of potential transport costs going that far. Pt stated she may elect to have family transport if able. [facility] 01-26-2024 Note ------ Attestation signed by Isak Hinojosa MD at 01/27/2024 9:03 AM By using [...] from me. Reviewed and approved by ISAK HINOJOSA on 01/27/24 at 9:03 AM. ------ GI [...] , ABGPO2 , ABGHCO3 , ABGBASEDEFIC , [id number] , ABGOXYGENSOU No lab exists for component: [...] EQ) HFpEF Mi (more content not included)... [facility] 01-26-2024 Note Physical Therapy Carlos atment [...] support on RW. Exercise: Pt instructed in 1/10 bilat LE strengthening ex to increase ease [...] Clicks T-Score: 18 Assessment: PT Assessment PT Assessment/LEGAL RESEARCH ANALYST Summary: Pt demonstrates decreased strength and ROM [...] Date End Date (more content not included)... [facility] 01-26-2024 Note ------ Attestation signed by [...] Le MD Orthopaedic Surgery, PGY-1 Ortho Pager [phone] 01/26/24 6:44 AM I am available via Gameleon 6a-6p. May contact the on-call resident with any concerns via the Orthopaedic pager at any time. 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 Pt stated she would like to discuss this with her family tonight before making a decision. Advised her we will follow up tomorrow. [facility] 01-25-2024 Note Occupational Therapy Occupational Therapy [...] a 78 y.o. female who presents to [facility] for R TKA which was performed on [...] Level of Function Prior Function Level of [place]: Independent with ADLs and functional transfers, Independent [...] Eating meals?: None (Independent) Total Score OT [facility]: 17 Assessment/Plan OT Assessment OT Impairments: Decre (more content not included)... [facility] 01-25-2024 Note Physical Therapy Rosemary zavala Patient Name: Lizabeth Montanez Today's Date: 01/25/2024 Admit Date: 01/24/2024 Time In: 8:47 AM Time Out: 9:09 AM Cumulative minutes: 22 minutes Billed minutes: 22 minutes History of present illness Lizabeth Montanez is a 78 y.o. female who presents to [facility] for R TKA which was performed on [...] Help from an (more content not included)... [facility] 01-25-2024 Note ------ Attestation signed by [...] Le MD Orthopaedic Surgery, PGY-1 Ortho Pager [phone] 01/25/24 8:16 AM I am available via [employer] 6a-6p. May contact the on-call resident with any concerns via the Orthopaedic pager at any time. [facility] 01-24-2024 Note Patient: Lizabeth nicolas Procedure Summary Date: 01/24/24 Room / Location: [facility] OPERATING ROOM 02 / [facility] Operating Room Anesthesia Start: 737 Anesthesia Stop: 1052 Procedure: TOTAL KNEE ARTHROPLASTY (Right: Knee) Diagnosis: [...] per anesthesia protocol. No notable events documented. [facility] 01-24-2024 Note Patient: Lizabeth nicolas Procedure Summary Date: 01/24/24 Room / Location: [facility] OPERATING ROOM 02 / [facility] Operating Room Anesthesia Start: 737 Anesthesia Stop: Procedure: TOTAL KNEE ARTHROPLASTY (Right: Knee) Diagnosis: Primary osteoarthritis of right knee (Primary osteoarthritis of right knee [M17.11]) Surgeons: Mynor Gallegos MD Responsible Provider: Wali Chavez MD Anesthesia Type: general ASA Status: 3 Anesthesia Post Transport Note Transport to: PACU O2 Route: room air Patient Monitor: direct observation Transport: uneventful Patient condition is: stable [facility] 01-24-2024 Note Airway Date/Time: 01/24/2024 7:47 AM Urgency: elective General Information and Staff Patient location during procedure: OR Anesthesiologist: Wali Chavez MD Resident/REFINERY OPERATOR VISBREAKING/CAA: RUBENS Dougherty Performed: resident/REFINERY OPERATOR VISBREAKING/CAA Indications and Patient Condition Indications for airway [...] 1 Number of other approaches attempted: 0 [facility] 01-24-2024 Note Patient: Lizabeth nicolas Procedure Information Date/Time: 01/24/24 0730 Procedure: TOTAL KNEE ARTHROPLASTY (Right: Knee) - RICHARD AND NEPHZIARA NOTIFIED 01/20 PEDRO LUIS Location: [facility] OPERATING ROOM 02 / [facility] Operating Room Surgeons: Mynor Gallegos MD [...] Plan discussed with CAA. Additional Equipment Requests [facility] 01-16-2024 Note I met with the patie nt for pre-operative education and discharge planning prior to her joint replacement surgery. The patient would like to discharge to home following her release from the hospital. But she also stated she may like to go to a rehab if physical therapy recommends she should. She would HHC with [facility] if she discharges home but if she needs a rehab she would like to go to [place]. Patient is aware she will be evaluated after surgery to see if she is safe to discharge home or not. She already has a rolling walker, raised toilet seat and shower chair. [facility] 01-16-2024 Note Orthopedic Surgery Subjective Chief [...] benefit the patient's ability to complete ADLs. [facility] 01-16-2024 Note Medications to take AM [...] THE FOLLOWING ARE NOT AVAILABLE: An adult utility driver over the age of 18, that [...] lenses. Do not wear perfume, make-up, nail pashto, or lotions on the day of your [...] need to make any changes, please call [phone]. Notify your surgeon if you develop any illness such as a cold, cough, fever, sore throat or vomiting between now and your surgery. Thank you for entrusting us with your care. [facility] Surgical Services Team [facility] 01-07-2024 Note UTP CARDIOLOGY PROGR ESS [...] provided. Patient verbalizes understanding Yeni Ugalde MD [facility] 11-28-2023 Note Orthopedic Surgery Subjective Chief [...] arthroplasty and wants her Right knee done. 07/25/23 Lizabeth Montanez is a 78 y.o. [...] Additional Comments: none Gertrude Alan, MS3 [facility] 11/28/2023 [facility] 09-13-2023 Note Remains on Eliquis anticoagulation,Diltiazem- Rate is well-controlled Patient denied any bleeding tendencies [facility] 09-13-2023 Note Remained stable and blood pressure well-controlled today [facility] 09-13-2023 Note Mild to Mod MR on re cent DENISE Will continue to monitor with routine echocardiograms for any worsening in severity and routine follow-ups in office to monitor her symptoms [facility] 09-13-[address] able without any worsening symptoms or exacerbation [facility] 09-13-2023 Note Patient here for 6 [...] All other systems reviewed and are negative. [facility] 09-13-2023 Note UTP CARDIOLOGY PROGR ESS [...] CM 36.5 Low (more content not included)... [facility] 08-29-2023 Note Orthopedic Surgery Subjective Chief [...] and will discuss replacing the Right knee [facility] 07-25-2023 Note Orthopedic Surgery Subjective Chief complaint: [...] examined the patient today Mynor Gallegos MD [facility] Summary Purpose Family History No Family History Records FoundNo Family History Records FoundNo Family History Records FoundNo Family History Records Found Advance Directives No Advanced Directives Records FoundNo Advanced Directives Records FoundNo Advanced Directives Records FoundNo Advanced Directives Records Found Additional Source Comments INFORMATION SOURCE (unrecogn ized section and content) DATE CREATED AUTHOR 03/24/2018 [facility] DATE CREATED AUTHOR AUTHOR'S ORGANIZ ATION 03/26/2018 [facility] DATE CREATED AUTHOR AUTHOR'S ORGANIZ ATION 03/08/2023 [facility] DATE CREATED AUTHOR AUTHOR'S ORGANIZ ATION 07/21/2024 [facility] FOR RECORDS PERTAINING TO PATIENTS WHO ARE [...] BE BASED ON THE PRIMARY CLINICAL RECORDS. [employer] provides no warranty or guarantee of the accuracy or completeness of information in this document.
--- NOTE | 2024-07-23 16:13 | ED.EXTPRO1 ---
HPI - Extremity Problem General Chief complaint: Extremity Problem, Nontraumatic Stated complaint: LOWER EXTREMITY INJURY, RIGHT Time Seen by Provider: 07/23/24 15:30 Source: patient and family Mode of arrival: walk-in Limitations: no limitations History of Present Illness HPI Narrative: The patient have a history of right knee replacement in January of this year she is coming after she noted that she have some limitation sometimes of bending her right knee and she have to according to her wiggle it to stand up from sitting position There was no history of fall trauma or any pain Related Data Allergies Allergy/AdvReac Type Severity Reaction Status Date / Time Penicillins Allergy Unknown Verified 03/08/23 08:19 Review of Systems ROS Status of ROS 10 or more systems reviewed and unremarkable except as noted in history and below PFSH PFSH Social History Little interest or pleasure in doing things: not at all Feeling down, depressed, or hopeless: not at all Exam Narrative Exam Narrative: Nurses notes and vital signs reviewed and patient is not hypoxic. Bilateral knee scarring from previous surgeries and the patient have bilateral knee normal exam with no tenderness although the right knee is mildly swollen compared to the left but there is no tenderness and there is no significant effusion on exam There is a full range of movement of both knees General: Well-appearing and in no apparent distress. Skin: Warm, dry, no pallor noted. No rash. Head: Normocephalic, atraumatic. Neck: Supple, non-tender. Eye: Pupils are equal, round and EOMI. No scleral icterus. Ears, Nose, Mouth, and Throat: TM are clear, no nasal mucosal hypertrophy. Oral mucosa is moist, no posterior oropharynx erythema, uvula is mid-line Cardiovascular: Regular Rate and Rhythm without murmur, gallop or rub. Respiratory: No accessory muscle use or respiratory distress. Lungs are clear to auscultation, no wheezing, rales or rhonchi Chest Wall: no tenderness Back: No midline thoracic or lumbar vertebral tenderness. No CVA tenderness Musculoskeletal: normal ROM, no calf or popliteal tenderness, no lower extremity edema/swelling GI: Abdomen is soft, non-distended. Normal bowel sounds. No masses appreciated. No tenderness to palpation. No rebound, guarding, or rigidity noted. Neurological: A&O x4. No cranial nerve dysfunction observed. No truncal ataxia. Moves all extremities. Sensation intact. Psychiatric: Cooperative and interactive. Normal mood and affect. Constitutional Vital Signs, click to edit/add: Last Vital Signs Temp 97.9 F 07/23/24 14:35 Pulse 80 07/23/24 16:19 Resp 16 07/23/24 16:19 BP 134/84 07/23/24 16:19 Pulse Ox 99 07/23/24 16:19 O2 Del Method Room Air 07/23/24 16:19 Course Vital Signs Vital signs: Vital Signs Temperature 97.9 F 07/23/24 14:35 Pulse Rate 72 07/23/24 14:35 Respiratory Rate 18 07/23/24 14:35 Blood Pressure 178/90 H 07/23/24 14:35 Pulse Oximetry 97 07/23/24 14:35 Oxygen Delivery Method Room Air 07/23/24 14:35 Temperature 97.9 F 07/23/24 14:35 Pulse Rate 80 07/23/24 16:19 Respiratory Rate 16 07/23/24 16:19 Blood Pressure 134/84 07/23/24 16:19 Pulse Oximetry 99 07/23/24 16:19 Oxygen Delivery Method Room Air 07/23/24 16:19 MDM - Extremity (Nontraumatic) MDM Narrative Medical decision making narrative: X-ray of the patient right knee showed no acute pathology and the patient will follow-up with her orthopedic doctor as outpatient The patient had Connor wrap applied The patient is to follow up with primary care physician in next 2-3 days or to return to the emergency department should any of the signs or symptoms worsen or new symptoms develop. The patient agrees with the following Diagnosis and Treatment plan and the patient will be discharged home. Discharge Plan Discharge Chief Complaint: Extremity Problem, Nontraumatic Clinical Impression: Knee buckling Patient Disposition: Home, Self-Care Time of Disposition Decision: 16:13 Condition: Good Mode of Transportation: Private Vehicle Print Language: New Zealander Instructions: Osteoarthritis (DC) Referrals: Malcolm Bone MD [Primary Care Provider] - 1 week Discharge Date/Time: 07/23/24 16:25
[2024-07-23 16:19] VITALS: BP 134/84; PULSE 80; O2SAT 99
== END 2024-07-23 16:25 | disposition home or self-care (01) ==
PROVIDERS: Emergency Provider Emergency Medicine; PCP Family Medicine
DX: M25.861 Other specified joint disorders, right knee (principal); Z96.651 Presence of right artificial knee joint
CPT/HCPCS: 73562; 99283

== ENCOUNTER 2024-12-08 10:37 | Outpatient (OUT) | payer MEDICARE, SELFPAY ==
--- OUTSIDE RECORDS SUMMARY | 2024-12-08 10:42 | XMS_ITS | CCD ---
Author Organization [facility] Care Team Providers Care Rental Coordinator Name Role Phone PHYSICIAN, DEFAULT Unavailable Unavailable [...] DR PARISI Attending Unavailable HOY ., DR PAIRSI Consulting Unavailable PAMELA PECK Consulting Unavailable AKIRA, MYNOR Referring Unavailable AKIRA, MYNOR Referring Unavailable AKIRA, MYNOR Referring Unavailable AKIRA, MYNOR Referring Unavailable ALGHOTHANI, MOHAMAD Attending Unavailable AKIRA, MYNOR Attending Unavailable AKIRA, MYNOR Attending Unavailable AKIRA, MYNOR Attending Unavailable AKIRA, MYNOR Attending Unavailable AKIRA, MYNOR Attending Unavailable AKIRA, MYNOR Referring Unavailable ALGHOTHANI, MOHAMAD Attending Unavailable ALGHOTHANI, MOHAMAD Attending Unavailable AKIRA, MYNOR Admitting Unavailable AKIRA, MYNOR Attending Unavailable AKIRA, MYNOR Referring Unavailable Allergies Allergy Classification Reported Allergen(s) Allergy Type Date of Onset Reaction(s) Facility (4 sources) Penicillins; Translations: [PENICILLINS] Drug allergy (disorder) 08-10-2009 [facility] Repository Problems Active Problems Problem Classification Problem Date Documented Date Episodic/Chronic Chronic kidney disease (2 sources) Chronic kidney disease, stage 1; Translations: [Chronic kidney disease, unspecified] Onset: 12-07-2022 Chronic Congestive heart failure; nonhypertensive (1 source) Unspecified diastolic (congestive) heart failure; Translations: [UNSPECIFIED DIASTOLIC HEART FAILURE] Onset: 10-31-2022 Chronic Coronary atherosclerosis and other heart disease (1 source) 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; Translations: [ASHD SILETZ TRIBE CA W/O ANGINA PECTORIS] Onset: 10-31-2022 Chronic Disorders of lipid metabolism (1 source) Hyperlipidemia, unspecified; Translations: [HYPERLIPIDEMIA UNSPECIFIED] Onset: 10-31-2022 Chronic Heart valve disorders (2 sources) Nonrheumatic mitral (valve) insufficiency; Translations: [Nonrheumatic mitral (valve) insufficiency] Onset: 11-07-2022 Chronic Hypertension with complications and secondary hypertension (7 sources) Hypertensive chronic kidney disease with stage [...] 09-05-2022 Chronic Other and ill-defined heart disease (1 source) Cardiomegaly; Translations: [CARDIOMEGALY] Onset: 10-31-2022 Chronic Other [...] [Hypomagnesemia] Onset: 01-24-2024 Chronic Pulmonary heart disease (1 source) Pulmonary hypertension, unspecified; Translations: [PULMONARY HYPERTENSION UNSPECIFIED] [...] Value Interpretation Reference Range Facility Office Visiton 11-17-2024 Follow-up visit [id number] EduardoMignonabbie Leiva 1945 Provider Department Center 11/17/2024 YENI GARCIA Family History Problem Relation Age of Onset Other Mother Other Mother Heart attack Father's Sister Family Status - Relation Status Age at Mother Father's Sister Level of Service:39309 [place] OFFICE/OUTPATIENT ESTABLISHED LOW MDM 20 MIN Normal [facility] Follow-Upon 08-13-2024 Follow-Up [id number] Mignon Montanez 1945 Provider Department Center 08/13/2024 293-MYNOR GALLEGOS MP ORTHO MPORTHO Family History Problem Relation Age of Onset Other Mother Other Mother Heart attack Father's Sister Family Status - Relation Status Age at Mother Father's Sister Level of Service:05627 [place] OFFICE/OUTPATIENT ESTABLISHED LOW MDM 20 MIN () Reason for Visit and Comments: Pain [136] - R TKA FOLLOW UP, C/O HAVING PROBLEMS GETTING UP FROM SITTING POSITION Follow-up [[id number]] - R TKA FOLLOW UP, C/O HAVING PROBLEMS GETTING UP FROM SITTING POSITION Normal [facility] Office Visiton 05-15-2024 Follow-up visit [id number] Mignon Montanez 1945 Date Provider Department Center 05/15/2024 YENI GARCIA Family History Problem Relation Age of Onset Other Mother Other Mother Heart attack Father's Sister Family Status - Relation Status Age at Mother Father's Sister Level of Service:41567 [place] OFFICE/OUTPATIENT ESTABLISHED LOW MDM 20 MIN Reason for Visit and Comments: Follow-up [[id number]] - Follow up Echo Concerns: No cardiac symptoms/concerns [facility] 36on 04-01-2024 36 Regarding echo performed on 03/27/2024: JESSICA Gonzalez MA Echo about the same as previous- with noted mild to mod mitral regurg and mod Aortic valve regurg and normal LV function If she notes worsening SOB, palpitations, weight gain/water retention she needs to call office Spoke with patient and made here aware. She verbalized understanding. Normal [facility] Office Visiton 03-12-2024 Follow-up visit [id number] Mignon Montanez cinthia E 1945 F Date Provider Department Center 03/12/2024 MYNOR SANDOVAL [facility] Family History Problem Relation Age of Onset Other Mother Other Mother Heart attack Father's Sister Family Status - Relation Status Age at Mother Father's Sister Level of Service:85622 [place] POSTOP FOLLOW UP VISIT RELATED TO ORIGINAL PX Reason for Visit and Comments: Pain [136] - R tka follow up [facility] Office Visiton 02-06-2024 Follow-up visit [id number] Mignon Montanez cinthia E 1945 F Date Provider Department Center 02/06/2024 293MYNOR PIERCE MP ORTHO MPORTHO Family History Problem Relation Age of Onset Other Mother Other Mother Heart attack Father's Sister Family Status - Relation Status Age at Mother Father's Sister Level of Service:67773 [place] POSTOP FOLLOW UP VISIT RELATED TO ORIGINAL PX (GC) Reason for Visit and Comments: Pain [136] - 1st post op R TKA Post-op [483] - 1st post op R TKA [facility] 36on 02-03-2024 36 I spoke to the patie nt to see how she is doing after her recent surgery. Ms Montanez stated she is doing well and her pain is manageable with medication. She is taking all the medication she was prescribed at discharge. She denies any redness, drainage or major swelling. She has been working with [facility] physical therapy. She has a post op appointment on February 05 at 8. She had no questions or concerns. [facility] 36 [facility] RN Karmen FRANCIS NOTIFIED NOT TO REMOVE THE DRESSING, HE V/U//[facility] 36on 01-31-2024 36 Anel ISRAEL notified t he nurse of dressing change instructions. I attempted to call the patient to complete a dishcarge follow up call and relay dressing orders but patient;s phone was busy. [facility] 36 Ortega, from [facility] called requesting clarification on patients wound vac instructions. They would like to know if they should remove the vac before her follow up visit. Discharge summary says :Dressing Removal: Do not remove before follow-up visit Follow up visit scheduled for 02/12. Please call with instructions on care. Number to return call [phone]. [facility] BASIC METABOLIC PANELon 05- Anion gap [Moles/Vol] 7 mmol/L Normal 7-20 [facility] Comment on above: Performed By: #### L [id number] ####[facility] (BEAKER)[address] [place] [address] Calcium [Mass/Vol] 10.8 mg/dL High 8.6-10.3 [facility] Comment on above: Performed By: #### L [id number] ####[facility] (BEAKER)[address] [place] [address] Chloride [Moles/Vol] 105 mmol/L Normal 98-107 [facility] Comment on above: Performed By: #### L [id number] ####[facility] (BEAKER)[address] [place] [address] CO2 [Moles/Vol] 27 mmol/L Normal 21-31 [facility] Comment on above: Performed By: #### L [id number] ####[facility] (BEAKER)[address] [place] [address] Creatinine [Mass/Vol] 1.45 mg/dL High 0.60-1.20 [facility] Comment on above: Performed By: #### L [id number] ####[facility] ([facility] [place] [address] GLOMERULAR FILTRATION RATE ML/MIN/1.73 SQ M.PREDICTED 37.2 mL/min/1.73m*2 Low >60.0 [facility] Comment on above: Result Comment: The [facility]???s estimated glomerular filtration rate (eGFR) will no [...] of individuals. Performed By: #### L [id number] ####[facility] ([facility])[address] [place] [address] Glucose [Mass/Vol] 88 mg/dL Normal 70-100 [facility] Comment on above: Performed By: #### L [id number] ####[facility] ([facility])[address] [place] [address] Potassium [Moles/Vol] 4.4 mmol/L Normal 3.5-5.1 [facility] Comment on above: Performed By: #### L [id number] ####[facility] ([facility])[address] [place] [address] Sodium [Moles/Vol] 135 mmol/L Low 136-145 [facility] Comment on above: Performed By: #### L [id number] ####[facility] ([facility])[address] [place] [address] Urea nitrogen [Mass/Vol] 45 mg/dL High 7-25 [facility] Comment on above: Performed By: #### L [id number] ####[facility] ([facility])[address] [place] [address] UREA NITROGEN/CREATININE (MASS RATIO) IN SER/PLAS 31.0 Normal [facility] Comment on above: Performed By: #### L [id number] ####[facility] ([facility])[address] [place] [address] CBC WITH AUTO DIFFERENTIALon 01-30-2024 Basophils (Bld) [#/Vol] 0.03 10*3/uL Normal 0.00-0.20 [facility] Comment on above: Performed By: #### L [id number] #### [facility] ([facility]) [address] [place] [address] Basophils/100 WBC (Bld) 0.3 % Normal 0.0-1.0 [facility] Comment on above: Performed By: #### L [id number] #### [facility] ([facility]) [address] [place] [address] Eosinophils (Bld) [#/Vol] 0.19 10*3/uL Normal 0.00-0.50 [facility] Comment on above: Performed By: #### L [id number] #### [facility] ([facility]) [address] [place] [address] Eosinophils/100 WBC (Bld) 2.1 % Normal 0.0-6.0 [facility] Comment on above: Performed By: #### L [id number] #### [facility] ([facility]) [address] [place] [address] Erythrocyte distribution width (RBC) [Ratio] 13.0 % Normal 11.5-15.0 [facility] Comment on above: Performed By: #### L [id number] #### [facility] ([facility]) [address] [place] [address] ERYTHROCYTE MEAN CORPUSCULAR HEMOGLOBIN CONCENTRATION (G/DL) BY AUTOMATED 31.5 g/dL Low 32.0-35.0 [facility] Comment on above: Performed By: #### L [id number] #### [facility] ([facility]) [address] [place] [address] Hematocrit (Bld) [Volume fraction] 24.8 % Low 36.0-48.0 [facility] Comment on above: Performed By: #### L [id number] #### [facility] (BEAKER) [address] [place] [address] Hemoglobin (Bld) [Mass/Vol] 7.8 g/dL Low 12.0-15.0 [facility] Comment on above: Performed By: #### L [id number] #### [facility] ([facility]) [address] [address] Immature granulocytes (Bld) [#/Vol] 0.09 10*3/uL Normal 0.00-0.20 [facility] Comment on above: Performed By: #### L [id number] #### [facility] ([facility]) [address] [place] [place] [address] Immature granulocytes/100 WBC (Bld) 1.0 % Normal 0.0-1.0 [facility] Comment on above: Performed By: #### L [id number] #### [facility] ([facility]) [address] [place] [address] Lymphocytes (Bld) [#/Vol] 0.68 10*3/uL Low 1.20-4.00 [facility] Comment on above: Performed By: #### L [id number] #### [facility] ([facility]) [address] [place] [address] Lymphocytes/100 WBC (Bld) 7.5 % Low 20.0-45.0 [facility] Comment on above: Performed By: #### L [id number] #### [facility] ([facility]) [address] [place] [address] MCH (RBC) [Entitic mass] 31.3 pg Normal 27.0-33.0 [facility] Comment on above: Performed By: #### L [id number] #### [facility] (BEAKER) [address] [place] [address] MCV (RBC) [Entitic vol] 99.6 fL High 82.0-98.0 [facility] Comment on above: Performed By: #### L [id number] #### [facility] ([facility]) [address] [place] [address] Monocytes (Bld) [#/Vol] 1.15 10*3/uL High 0.10-1.00 [facility] Comment on above: Performed By: #### L [id number] #### [facility] ([facility]) [address] [place] [address] Monocytes/100 WBC (Bld) 12.6 % High 5.0-12.0 [facility] Comment on above: Performed By: #### L [id number] #### [facility] ([facility]) [address] [place] [address] Neutrophils (Bld) [#/Vol] 6.97 10*3/uL Normal 1.60-7.60 [facility] Comment on above: Performed By: #### L [id number] #### [facility] ([facility]) [address] [place] [address] Neutrophils/100 WBC (Bld) 76.5 % High 40.0-72.0 [facility] Comment on above: Performed By: #### L [id number] #### [facility] ([facility]) [address] [place] [address] NRBC (PER 100 WBCS) BY AUTOMATED COUNT 0.0 % Normal 0 [facility] Comment on above: Performed By: #### L [id number] #### [facility] ([facility]) [address] [place] [address] PLATELETS (10*3/UL) IN BLOOD AUTOMATED COUNT 245 10*3/uL Normal 150-400 [facility] Comment on above: Performed By: #### L [id number] #### [facility] ([facility]) [address] [place] [address] RBC (Bld) [#/Vol] 2.49 10*6/uL Low 3.80-5.00 [facility] Comment on above: Performed By: #### L [id number] #### [facility] (BEAKER) [address] [place] [address] WBC (Bld) [#/Vol] 9.11 10*3/uL Normal 4.00-10.60 [facility] Comment on above: Performed By: #### L [id number] #### [facility] (BEAKER) [address] [place] [address] DSon 01-30-2024 DS --- Attestation signed by Mynor Gallegos MD at 02/20/2024 8:07 AM I did not personally examine the patient. I discussed the case with the resident/fellow Hailee Ortez MD Teaching Physician's Revisions: none Orthopaedic Discharge Summary Patient ID: Lizabeth Montanez [id number] 78 y.o. 1945 Admit date: 01/24/2024 Discharge date and time: 01/30/2024 3:32 PM Admitting Physician: Mynor Gallegos MD Discharge Physician: Mynor Gallegos MD Admission Diagnoses: Primary osteoarthritis of right knee [M17.11] Arthritis of right knee [M17.11] Discharge Diagnoses: Primary osteoarthritis of right knee [M17.11] Arthritis of right knee [M17.11] Surgical procedure: TOTAL KNEE ARTHROPLASTY 51180 - [place] ARTHRP KNE CONDYLE&PLATU MEDIAL&LAT COMPARTMENTS Disposition: Home [...] Medications These medications were sent to [facility] - [place], [place] - [address] [place] [address] [place] [address] [facility] [place] [address], [facility] [address] allopurinol 100 mg tablet apixaban 2.5 mg [...] Ruslan Ortez MD in 10-14 days at [facility] [phone] Hospital Course: Lizabeth Montanez was admitted on 01/24/2024 and underwent the aforementioned procedure. Post-operatively, she had adequate pain control and physical therapy to be able to be discharged from the hospital. DVT prophylaxis consisted of Eliquis 2.5 mg BID for 30 days . Signed: Ruslan Ortez MD 7:38 AM 02/10/2024 Normal [facility] 30on 01-29-2024 30 The patient is Moderately [...] by Chrystal Thao RN Outcome: Progressing Normal [facility] 30 Daily Case Managemen t Update Multidisciplinary rounds have been completed. Barriers to Discharge: Pending placement. Received late notification that patients insurance has denied IPR placement. IPR physician completed P2P on behalf of patient and the denial was upheld. [employer] Information Clerk and SW will be speaking with the patient shortly regarding SNF vs home discharge goal. Diet: Dietary Orders (From admission, onward) Start Ordered 01/29/24 0843 Special Kitchen Request Once Comments: Please send uzbek yogurt (peach), grits, honey and milk, bruneian muffin. Decaf coffee with cream, diet coke. Thanks! 01/29/24 0844 01/24/24 1619 Regular Diet Diet effective now Question: Room Service? Answer: Yes 01/24/24 1618 Physician Expected Discharge Date: 01/25/2024 Discharge Delays: PT Six Click Score: 18 OT Six Click Score: 16 PT Recommendations: Inpatient rehab facility placement OT Recommendations: halfway facility placement Does patient understand post acute [...] Answer: postop musculoskeletal care 01/24/24 0743 Normal [facility] BASIC METABOLIC PANELon 05-0 Anion gap [Moles/Vol] 10 mmol/L Normal 7-20 [facility] Comment on above: Performed By: #### L [id number] ####[facility] (BEAKER)[address] [place] [address] Calcium [Mass/Vol] 10.4 mg/dL High 8.6-10.3 [facility] Comment on above: Performed By: #### L [id number] ####[facility] (BEAKER)[address] [place] [address] Chloride [Moles/Vol] 106 mmol/L Normal 98-107 [facility] Comment on above: Performed By: #### L [id number] ####[facility] (BEAKER)[address] [place] [address] CO2 [Moles/Vol] 24 mmol/L Normal 21-31 [facility] Comment on above: Performed By: #### L [id number] ####[facility] (BEAKER)[address] [place] [address] Creatinine [Mass/Vol] 1.52 mg/dL High 0.60-1.20 [facility] Comment on above: Performed By: #### L [id number] ####[facility] ([facility])[address] [place] [address] GLOMERULAR FILTRATION RATE ML/MIN/1.73 SQ M.PREDICTED 35.1 mL/min/1.73m*2 Low >60.0 [facility] Comment on above: Result Comment: The [facility]???s estimated glomerular filtration rate (eGFR) will no [...] of individuals. Performed By: #### L [id number] ####[facility] ([facility])[address] [place] [address] Glucose [Mass/Vol] 82 mg/dL Normal 70-100 [facility] Comment on above: Performed By: #### L [id number] ####[facility] ([facility])[address] [place] [address] Potassium [Moles/Vol] 4.4 mmol/L Normal 3.5-5.1 [facility] Comment on above: Performed By: #### L [id number] ####[facility] ([facility])[address] [place] [address] Sodium [Moles/Vol] 136 mmol/L Normal 136-145 [facility] Comment on above: Performed By: #### L [id number] ####[facility] ([facility])[address] [place] [address] Urea nitrogen [Mass/Vol] 46 mg/dL High 7-25 [facility] Comment on above: Performed By: #### L [id number] ####[facility] ([facility])[address] [place] [address] UREA NITROGEN/CREATININE (MASS RATIO) IN SER/PLAS 30.3 Normal [facility] Comment on above: Performed By: #### L [id number] ####[facility] ([facility])[address] [place] [address] CBC WITH AUTO DIFFERENTIALon 01-29-2024 Basophils (Bld) [#/Vol] 0.02 10*3/uL Normal 0.00-0.20 [facility] Comment on above: Performed By: #### L [id number] #### [facility] ([facility]) [address] [place] [address] Basophils/100 WBC (Bld) 0.2 % Normal 0.0-1.0 [facility] Comment on above: Performed By: #### L [id number] #### [facility] ([facility]) [address] [place] [address] Eosinophils (Bld) [#/Vol] 0.10 10*3/uL Normal 0.00-0.50 [facility] Comment on above: Performed By: #### L [id number] #### [facility] ([facility]) [address] [place] [address] Eosinophils/100 WBC (Bld) 1.2 % Normal 0.0-6.0 [facility] Comment on above: Performed By: #### L [id number] #### [facility] ([facility]) [address] [place] [address] Erythrocyte distribution width (RBC) [Ratio] 13.2 % Normal 11.5-15.0 [facility] Comment on above: Performed By: #### L [id number] #### [facility] ([facility]) [address] [place] [address] ERYTHROCYTE MEAN CORPUSCULAR HEMOGLOBIN CONCENTRATION (G/DL) BY AUTOMATED 32.4 g/dL Normal 32.0-35.0 [facility] Comment on above: Performed By: #### L [id number] #### [facility] (BEAKER) [address] [place] [address] Hematocrit (Bld) [Volume fraction] 24.1 % Low 36.0-48.0 [facility] Comment on above: Performed By: #### L [id number] #### [facility] (BEAKER) [address] [place] [address] Hemoglobin (Bld) [Mass/Vol] 7.8 g/dL Low 12.0-15.0 [facility] Comment on above: Performed By: #### L [id number] #### [facility] (BEAKER) [address] [place] [address] Immature granulocytes (Bld) [#/Vol] 0.07 10*3/uL Normal 0.00-0.20 [facility] Comment on above: Performed By: #### L [id number] #### [facility] ([facility]) [address] [place] [address] Immature granulocytes/100 WBC (Bld) 0.8 % Normal 0.0-1.0 [facility] Comment on above: Performed By: #### L [id number] #### [facility] (BEAKER) [address] [place] [address] Lymphocytes (Bld) [#/Vol] 0.77 10*3/uL Low 1.20-4.00 [facility] Comment on above: Performed By: #### L [id number] #### [facility] (BEAKER) [address] [place] [address] Lymphocytes/100 WBC (Bld) 8.9 % Low 20.0-45.0 [facility] Comment on above: Performed By: #### L [id number] #### [facility] (BEAKER) [address] [place] [address] MCH (RBC) [Entitic mass] 32.0 pg Normal 27.0-33.0 [facility] Comment on above: Performed By: #### L [id number] #### [facility] (BEAKER) [address] [place] [address] MCV (RBC) [Entitic vol] 98.8 fL High 82.0-98.0 [facility] Comment on above: Performed By: #### L [id number] #### [facility] ([facility]) [address] [place] [address] Monocytes (Bld) [#/Vol] 1.14 10*3/uL High 0.10-1.00 [facility] Comment on above: Performed By: #### L [id number] #### [facility] ([facility]) [address] [place] [address] Monocytes/100 WBC (Bld) 13.2 % High 5.0-12.0 [facility] Comment on above: Performed By: #### L [id number] #### [facility] ([facility]) [address] [place] [address] Neutrophils (Bld) [#/Vol] 6.53 10*3/uL Normal 1.60-7.60 [facility] Comment on above: Performed By: #### L [id number] #### [facility] ([facility]) [address] [place] [address] Neutrophils/100 WBC (Bld) 75.7 % High 40.0-72.0 [facility] Comment on above: Performed By: #### L [id number] #### [facility] ([facility]) [address] [place] [address] NRBC (PER 100 WBCS) BY AUTOMATED COUNT 0.0 % Normal 0 [facility] Comment on above: Performed By: #### L [id number] #### [facility] ([facility]) [address] [place] [address] PLATELETS (10*3/UL) IN BLOOD AUTOMATED COUNT 218 10*3/uL Normal 150-400 [facility] Comment on above: Performed By: #### L [id number] #### [facility] ([facility]) [address] [place] [address] RBC (Bld) [#/Vol] 2.44 10*6/uL Low 3.80-5.00 [facility] Comment on above: Performed By: #### L [id number] #### [facility] ([facility]) [address] [place] [address] WBC (Bld) [#/Vol] 8.63 10*3/uL Normal 4.00-10.60 [facility] Comment on above: Performed By: #### L [id number] #### [facility] ([facility]) [address] [place] [address] MAGNESIUMon 01-29-2024 Magnesium [Mass/Vol] 1.7 mg/dL Low 1.9-2.7 [facility] Comment on above: Performed By: #### L [id number] ####[facility] ([facility])[address] [place] [address] 30on 01-28-2024 30 The patient is Moderately [...] and maintained or improved Outcome: Progressing Normal [facility] 30 Daily Case Managemen t Update Multidisciplinary rounds have been completed. Barriers to Discharge: Pending medical clearance for discharge. POD #4. Awaiting medical readiness for hospital discharge. [facility] has submitted for insurance authorization. Diet: Dietary Orders (From admission, onward) Start Ordered 01/24/24 1619 Regular Diet Diet effective now Question: Room Service? Answer: Yes 01/24/24 1618 Physician Expected Discharge Date: 01/25/2024 Discharge Delays: PT Six Click Score: 17 OT Six Click Score: 17 PT Recommendations: Inpatient rehab facility placement OT Recommendations: halfway facility placement Does patient understand post acute [...] Answer: postop musculoskeletal care 01/24/24 0743 Normal [facility] BASIC METABOLIC PANELon 04-3 0 Anion gap [Moles/Vol] 10 mmol/L Normal 7-20 [facility] Comment on above: Performed By: #### L [id number] #### [facility] ([facility]) [address] [place] [address] Calcium [Mass/Vol] 10.3 mg/dL Normal 8.6-10.3 [facility] Comment on above: Performed By: #### L [id number] #### [facility] ([facility]) [address] [place] [address] Chloride [Moles/Vol] 104 mmol/L Normal 98-107 [facility] Comment on above: Performed By: #### L [id number] #### [facility] ([facility]) [address] [place] [address] CO2 [Moles/Vol] 25 mmol/L Normal 21-31 [facility] Comment on above: Performed By: #### L [id number] #### [facility] ([facility]) [address] [place] [address] Creatinine [Mass/Vol] 1.52 mg/dL High 0.60-1.20 [facility] Comment on above: Performed By: #### L [id number] #### [facility] ([facility]) [address] [place] [address] GLOMERULAR FILTRATION RATE ML/MIN/1.73 SQ M.PREDICTED 35.1 mL/min/1.73m*2 Low >60.0 [facility] Comment on above: Result Comment: The [facility]???s estimated glomerular filtration rate (eGFR) will no [...] individuals. Performed By: #### L [id number] #### [facility] ([facility]) [address] [place] [address] Glucose [Mass/Vol] 90 mg/dL Normal 70-100 [facility] Comment on above: Performed By: #### L [id number] #### [facility] ([facility]) [address] [place] [address] Potassium [Moles/Vol] 4.6 mmol/L Normal 3.5-5.1 [facility] Comment on above: Performed By: #### L [id number] #### [facility] ([facility]) [address] [place] [address] Sodium [Moles/Vol] 134 mmol/L Low 136-145 [facility] Comment on above: Performed By: #### L [id number] #### [facility] ([facility]) [address] [place] [address] Urea nitrogen [Mass/Vol] 49 mg/dL High 7-25 [facility] Comment on above: Performed By: #### L [id number] #### [facility] ([facility]) [address] [place] [address] UREA NITROGEN/CREATININE (MASS RATIO) IN SER/PLAS 32.2 Normal [facility] Comment on above: Performed By: #### L [id number] #### [facility] ([facility]) [address] [place] [address] CBC WITH AUTO DIFFERENTIALon 01-28-2024 Basophils (Bld) [#/Vol] 0.02 10*3/uL Normal 0.00-0.20 [facility] Comment on above: Performed By: #### L [id number] #### [facility] ([facility]) [address] [place] [address] Basophils/100 WBC (Bld) 0.2 % Normal 0.0-1.0 [facility] Comment on above: Performed By: #### L [id number] #### [facility] ([facility]) [address] [place] [address] Eosinophils (Bld) [#/Vol] 0.05 10*3/uL Normal 0.00-0.50 [facility] Comment on above: Performed By: #### L [id number] #### [facility] ([facility]) [address] [place] [address] Eosinophils/100 WBC (Bld) 0.5 % Normal 0.0-6.0 [facility] Comment on above: Performed By: #### L [id number] #### [facility] ([facility]) [address] [place] [address] Erythrocyte distribution width (RBC) [Ratio] 13.2 % Normal 11.5-15.0 [facility] Comment on above: Performed By: #### L [id number] #### [facility] ([facility]) [address] [place] [address] ERYTHROCYTE MEAN CORPUSCULAR HEMOGLOBIN CONCENTRATION (G/DL) BY AUTOMATED 33.2 g/dL Normal 32.0-35.0 [facility] Comment on above: Performed By: #### L [id number] #### [facility] ([facility]) [address] [place] [address] Hematocrit (Bld) [Volume fraction] 25.3 % Low 36.0-48.0 [facility] Comment on above: Performed By: #### L [id number] #### [facility] ([facility]) [address] [place] [address] Hemoglobin (Bld) [Mass/Vol] 8.4 g/dL Low 12.0-15.0 [facility] Comment on above: Performed By: #### L [id number] #### [facility] ([facility]) [address] [place] [address] Immature granulocytes (Bld) [#/Vol] 0.07 10*3/uL Normal 0.00-0.20 [facility] Comment on above: Performed By: #### L [id number] #### [facility] ([facility]) [address] [place] [address] Immature granulocytes/100 WBC (Bld) 0.7 % Normal 0.0-1.0 [facility] Comment on above: Performed By: #### L [id number] #### [facility] ([facility]) [address] [place] [address] Lymphocytes (Bld) [#/Vol] 0.67 10*3/uL Low 1.20-4.00 [facility] Comment on above: Performed By: #### L [id number] #### [facility] ([facility]) [address] [place] [address] Lymphocytes/100 WBC (Bld) 7.1 % Low 20.0-45.0 [facility] Comment on above: Performed By: #### L [id number] #### [facility] ([facility]) [address] [place] [address] MCH (RBC) [Entitic mass] 31.5 pg Normal 27.0-33.0 [facility] Comment on above: Performed By: #### L [id number] #### [facility] ([facility]) [address] [place] [address] MCV (RBC) [Entitic vol] 94.8 fL Normal 82.0-98.0 [facility] Comment on above: Performed By: #### L [id number] #### [facility] ([facility]) [address] [place] [address] Monocytes (Bld) [#/Vol] 1.18 10*3/uL High 0.10-1.00 [facility] Comment on above: Performed By: #### L [id number] #### [facility] ([facility]) [address] [place] [address] Monocytes/100 WBC (Bld) 12.5 % High 5.0-12.0 [facility] Comment on above: Performed By: #### L [id number] #### [facility] ([facility]) [address] [place] [address] Neutrophils (Bld) [#/Vol] 7.47 10*3/uL Normal 1.60-7.60 [facility] Comment on above: Performed By: #### L [id number] #### [facility] ([facility]) [address] [place] [address] Neutrophils/100 WBC (Bld) 79.0 % High 40.0-72.0 [facility] Comment on above: Performed By: #### L [id number] #### [facility] ([facility]) [address] [place] [address] NRBC (PER 100 WBCS) BY AUTOMATED COUNT 0.0 % Normal 0 [facility] Comment on above: Performed By: #### L [id number] #### [facility] ([facility]) [address] [place] [address] PLATELETS (10*3/UL) IN BLOOD AUTOMATED COUNT 197 10*3/uL Normal 150-400 [facility] Comment on above: Performed By: #### L [id number] #### [facility] ([facility]) [address] [place] [address] RBC (Bld) [#/Vol] 2.67 10*6/uL Low 3.80-5.00 [facility] Comment on above: Performed By: #### L [id number] #### [facility] ([facility]) [address] [place] [address] WBC (Bld) [#/Vol] 9.46 10*3/uL Normal 4.00-10.60 [facility] Comment on above: Performed By: #### L [id number] #### [facility] ([facility]) [address] [place] [address] 30on 01-27-2024 30 The patient is Moderately [...] and maintained or improved Outcome: Progressing Normal [facility] 30 Daily Case Managemen t Update Multidisciplinary rounds have been completed. Barriers to Discharge: Pending medical clearance for discharge. Medicine service was consulted for bradycardia. Medication adjustments have been made. Currently monitoring renal function, but will likely be medically ready for discharge soon. Patient is planning to go to [facility] when medically ready for discharge. [facility] has submitted for insurance pre-certification. Diet: [...] Answer: postop musculoskeletal care 01/24/24 0743 Normal [facility] BASIC METABOLIC PANELon - Anion gap [Moles/Vol] 10 mmol/L Normal 7-20 [facility] Comment on above: Performed By: #### L [id number] #### [facility] , Calcium [Mass/Vol] 10.1 mg/dL Normal 8.6-10.3 [facility] Comment on above: Performed By: #### L [id number] #### [facility] , Chloride [Moles/Vol] 106 mmol/L Normal 98-107 [facility] Comment on above: Performed By: #### L [id number] #### [facility] , CO2 [Moles/Vol] 24 mmol/L Normal 21-31 [facility] Comment on above: Performed By: #### L [id number] #### [facility] , Creatinine [Mass/Vol] 1.74 mg/dL High 0.60-1.20 [facility] Comment on above: Performed By: #### L [id number] #### [facility] , GLOMERULAR FILTRATION RATE ML/MIN/1.73 SQ M.PREDICTED 29.9 mL/min/1.73m*2 Low >60.0 [facility] Comment on above: Result Comment: The [facility]???s estimated glomerular filtration rate (eGFR) will no [...] group of individuals. Performed By: #### L [id number] #### [facility] , Glucose [Mass/Vol] 87 mg/dL Normal 70-100 [facility] Comment on above: Performed By: #### L [id number] #### [facility] , Potassium [Moles/Vol] 4.4 mmol/L Normal 3.5-5.1 [facility] Comment on above: Performed By: #### L [id number] #### [facility] , Sodium [Moles/Vol] 136 mmol/L Normal 136-145 [facility] Comment on above: Performed By: #### L [id number] #### [facility] , Urea nitrogen [Mass/Vol] 58 mg/dL High 7-25 [facility] Comment on above: Performed By: #### L [id number] #### [facility] , UREA NITROGEN/CREATININE (MASS RATIO) IN SER/PLAS 33.3 Normal [facility] Comment on above: Performed By: #### L [id number] #### [facility] , CBC WITH AUTO DIFFERENTIALon 01-27-2024 Basophils (Bld) [#/Vol] 0.01 10*3/uL Normal 0.00-0.20 [facility] Comment on above: Performed By: #### L [id number] #### [facility] ([facility]) [address] [facility] [place] [address] Basophils/100 WBC (Bld) 0.1 % Normal 0.0-1.0 [facility] Comment on above: Performed By: #### L [id number] #### [facility] ([facility]) [address] [place] [address] Eosinophils (Bld) [#/Vol] 0.07 10*3/uL Normal 0.00-0.50 [facility] Comment on above: Performed By: #### L [id number] #### [facility] ([facility]) [address] [place] [address] Eosinophils/100 WBC (Bld) 0.8 % Normal 0.0-6.0 [facility] Comment on above: Performed By: #### L [id number] #### [facility] ([facility]) [address] [place] [address] Erythrocyte distribution width (RBC) [Ratio] 13.4 % Normal 11.5-15.0 [facility] Comment on above: Performed By: #### L [id number] #### [facility] ([facility]) [address] [place] [address] ERYTHROCYTE MEAN CORPUSCULAR HEMOGLOBIN CONCENTRATION (G/DL) BY AUTOMATED 32.4 g/dL Normal 32.0-35.0 [facility] Comment on above: Performed By: #### L [id number] #### [facility] ([facility]) [address] [place] [address] Hematocrit (Bld) [Volume fraction] 25.3 % Low 36.0-48.0 [facility] Comment on above: Performed By: #### L [id number] #### [facility] ([facility]) [address] [place] [address] Hemoglobin (Bld) [Mass/Vol] 8.2 g/dL Low 12.0-15.0 [facility] Comment on above: Performed By: #### L [id number] #### [facility] ([facility]) [address] [place] [address] Immature granulocytes (Bld) [#/Vol] 0.06 10*3/uL Normal 0.00-0.20 [facility] Comment on above: Performed By: #### L [id number] #### [facility] ([facility]) [address] [address] Immature granulocytes/100 WBC (Bld) 0.7 % Normal 0.0-1.0 [facility] Comment on above: Performed By: #### L [id number] #### [facility] ([facility]) [address] [place] [address] Lymphocytes (Bld) [#/Vol] 0.68 10*3/uL Low 1.20-4.00 [facility] Comment on above: Performed By: #### L [id number] #### [facility] ([facility]) [address] [place] [address] Lymphocytes/100 WBC (Bld) 7.5 % Low 20.0-45.0 [facility] Comment on above: Performed By: #### L [id number] #### [facility] ([facility]) [address] [place] [address] MCH (RBC) [Entitic mass] 31.4 pg Normal 27.0-33.0 [facility] Comment on above: Performed By: #### L [id number] #### [facility] ([facility]) [address] [address] MCV (RBC) [Entitic vol] 96.9 fL Normal 82.0-98.0 [facility] Comment on above: Performed By: #### L [id number] #### [facility] ([facility]) [address] [place] [address] Monocytes (Bld) [#/Vol] 1.20 10*3/uL High 0.10-1.00 [facility] Comment on above: Performed By: #### L [id number] #### [facility] ([facility]) [address] [place] [address] Monocytes/100 WBC (Bld) 13.2 % High 5.0-12.0 [facility] Comment on above: Performed By: #### L [id number] #### [facility] ([facility]) [address] [place] [address] Neutrophils (Bld) [#/Vol] 7.06 10*3/uL Normal 1.60-7.60 [facility] Comment on above: Performed By: #### L [id number] #### [facility] ([facility]) [address] [place] [address] Neutrophils/100 WBC (Bld) 77.7 % High 40.0-72.0 [facility] Comment on above: Performed By: #### L [id number] #### [facility] ([facility]) [address] [place] [address] NRBC (PER 100 WBCS) BY AUTOMATED COUNT 0.0 % Normal 0 [facility] Comment on above: Performed By: #### L [id number] #### [facility] ([facility]) [address] [place] [address] PLATELETS (10*3/UL) IN BLOOD AUTOMATED COUNT 196 10*3/uL Normal 150-400 [facility] Comment on above: Performed By: #### L [id number] #### [facility] ([facility]) [address] [place] [address] RBC (Bld) [#/Vol] 2.61 10*6/uL Low 3.80-5.00 [facility] Comment on above: Performed By: #### L [id number] #### [facility] ([facility]) [address] [place] [address] WBC (Bld) [#/Vol] 9.08 10*3/uL Normal 4.00-10.60 [facility] Comment on above: Performed By: #### L [id number] #### [facility] ([facility]) [address] [place] [address] CKon 01-27-2024 CREATINE KINASE (U/L) IN SER/PLAS 34.0 U/L Normal 30.0-223.0 [facility] Comment on above: Performed By: #### L [id number] ####[facility] ([facility])[address] [place] [address] MAGNESIUMon 01-27-2024 Magnesium [Mass/Vol] 2.0 mg/dL Normal 1.9-2.7 [facility] Comment on above: Performed By: #### L [id number] #### [facility] ([facility]) [address] [place] [address] PHOSPHORUSon 01-27-2024 Magnesium [Mass/Vol] 3.1 mg/dL Normal 2.5-5.0 [facility] Comment on above: Performed By: #### L [id number] ####[facility] ([facility])[address] [place] [address] URIC ACIDon 01-27-2024 Magnesium [Mass/Vol] 7.6 mg/dL High 2.3-6.6 [facility] Comment on above: Performed By: #### L [id number] #### [facility] ([facility]) [address] [place] [address] VITAMIN D 25 HYDROXYon 01-26 CALCIDIOL (25 [place] VITAMIN D3) (NG/ML) IN SER/PLAS 34.6 ng/mL Normal 30.0-80.0 [facility] Comment on above: Result Comment: >80. 0 Toxicity possible Performed By: #### L [id number] ####[facility] ([facility])[address] [place] [address] BASIC METABOLIC PANELon 12-30 Anion gap [Moles/Vol] 11 mmol/L Normal 7-20 [facility] Comment on above: Performed By: #### L [id number] #### [facility] ([facility]) [address] [place] [address] Calcium [Mass/Vol] 10.0 mg/dL Normal 8.6-10.3 [facility] Comment on above: Performed By: #### L [id number] #### [facility] ([facility]) [address] [place] [address] Chloride [Moles/Vol] 104 mmol/L Normal 98-107 [facility] Comment on above: Performed By: #### L [id number] #### [facility] ([facility]) [address] [place] [address] CO2 [Moles/Vol] 24 mmol/L Normal 21-31 [facility] Comment on above: Performed By: #### L [id number] #### [facility] ([facility]) [address] [place] [address] Creatinine [Mass/Vol] 1.97 mg/dL High 0.60-1.20 [facility] Comment on above: Performed By: #### L [id number] #### [facility] ([facility]) [address] [place] [address] GLOMERULAR FILTRATION RATE ML/MIN/1.73 SQ M.PREDICTED 25.7 mL/min/1.73m*2 Low >60.0 [facility] Comment on above: Result Comment: [facility]???s estimated glomerular filtration rate (eGFR) will no [...] group of individuals. Performed By: #### L [id number] #### [facility] ([facility]) [address] [place] [address] Glucose [Mass/Vol] 127 mg/dL High 70-100 [facility] Comment on above: Performed By: #### L [id number] #### [facility] ([facility]) [address] [place] [address] Potassium [Moles/Vol] 4.2 mmol/L Normal 3.5-5.1 [facility] Comment on above: Performed By: #### L [id number] #### [facility] ([facility]) [address] [place] [address] Sodium [Moles/Vol] 135 mmol/L Low 136-145 [facility] Comment on above: Performed By: #### L [id number] #### [facility] ([facility]) [address] [place] [address] Urea nitrogen [Mass/Vol] 60 mg/dL High 7-25 [facility] Comment on above: Performed By: #### L [id number] #### [facility] ([facility]) [address] [place] [address] UREA NITROGEN/CREATININE (MASS RATIO) IN SER/PLAS 30.5 Normal [facility] Comment on above: Performed By: #### L [id number] #### [facility] ([facility]) [address] [place] [address] CBC WITH AUTO DIFFERENTIALon 01-26-2024 Basophils (Bld) [#/Vol] 0.01 10*3/uL Normal 0.00-0.20 [facility] Comment on above: Performed By: #### L [id number] #### [facility] ([facility]) [address] [place] [address] Basophils/100 WBC (Bld) 0.1 % Normal 0.0-1.0 [facility] Comment on above: Performed By: #### L [id number] #### [facility] ([facility]) [address] [address] Eosinophils (Bld) [#/Vol] 0.01 10*3/uL Normal 0.00-0.50 [facility] Comment on above: Performed By: #### L [id number] #### [facility] ([facility]) [address] [place] [address] Eosinophils/100 WBC (Bld) 0.1 % Normal 0.0-6.0 [facility] Comment on above: Performed By: #### L [id number] #### [facility] ([facility]) [address] [place] [address] Erythrocyte distribution width (RBC) [Ratio] 13.5 % Normal 11.5-15.0 [facility] Comment on above: Performed By: #### L [id number] #### [facility] [facility]) [address] [place] [address] ERYTHROCYTE MEAN CORPUSCULAR HEMOGLOBIN CONCENTRATION (G/DL) BY AUTOMATED 32.1 g/dL Normal 32.0-35.0 [facility] Comment on above: Performed By: #### L [id number] #### [facility] ([facility]) [address] [place] [address] Hematocrit (Bld) [Volume fraction] 26.5 % Low 36.0-48.0 [facility] Comment on above: Performed By: #### L [id number] #### [facility] ([facility]) [address] [place] [address] Hemoglobin (Bld) [Mass/Vol] 8.5 g/dL Low 12.0-15.0 [facility] Comment on above: Performed By: #### L [id number] #### [facility] ([facility]) [address] [place] [address] Immature granulocytes (Bld) [#/Vol] 0.09 10*3/uL Normal 0.00-0.20 [facility] Comment on above: Performed By: #### L [id number] #### [facility] ([facility]) [address] [place] [address] Immature granulocytes/100 WBC (Bld) 0.8 % Normal 0.0-1.0 [facility] Comment on above: Performed By: #### L [id number] #### [facility] ([facility]) [address] [place] [address] Lymphocytes (Bld) [#/Vol] 0.47 10*3/uL Low 1.20-4.00 [facility] Comment on above: Performed By: #### L [id number] #### [facility] ([facility]) [address] [place] [address] Lymphocytes/100 WBC (Bld) 4.2 % Low 20.0-45.0 [facility] Comment on above: Performed By: #### L [id number] #### [facility] ([facility]) [address] [place] [address] MCH (RBC) [Entitic mass] 31.7 pg Normal 27.0-33.0 [facility] Comment on above: Performed By: #### L [id number] #### [facility] ([facility]) [address] [place] [address] MCV (RBC) [Entitic vol] 98.9 fL High 82.0-98.0 [facility] Comment on above: Performed By: #### L [id number] #### [facility] ([facility]) [address] [place] [address] Monocytes (Bld) [#/Vol] 1.01 10*3/uL High 0.10-1.00 [facility] Comment on above: Performed By: #### L [id number] #### [facility] ([facility]) [address] [place] [address] Monocytes/100 WBC (Bld) 8.9 % Normal 5.0-12.0 [facility] Comment on above: Performed By: #### L [id number] #### [facility] ([facility]) [address] [place] [address] Neutrophils (Bld) [#/Vol] 9.72 10*3/uL High 1.60-7.60 [facility] Comment on above: Performed By: #### L [id number] #### [facility] ([facility]) [address] [place] [address] Neutrophils/100 WBC (Bld) 85.9 % High 40.0-72.0 [facility] Comment on above: Performed By: #### L [id number] #### [facility] ([facility]) [address] [place] [address] NRBC (PER 100 WBCS) BY AUTOMATED COUNT 0.0 % Normal 0 [facility] Comment on above: Performed By: #### L [id number] #### [facility] ([facility]) [address] [place] [address] PLATELETS (10*3/UL) IN BLOOD AUTOMATED COUNT 199 10*3/uL Normal 150-400 [facility] Comment on above: Performed By: #### L [id number] #### [facility] ([facility]) [address] [place] [address] RBC (Bld) [#/Vol] 2.68 10*6/uL Low 3.80-5.00 [facility] Comment on above: Performed By: #### L [id number] #### [facility] ([facility]) [address] [place] [address] WBC (Bld) [#/Vol] 11.31 10*3/uL High 4.00-10.60 [facility] Comment on above: Performed By: #### L [id number] #### [facility] ([facility]) [address] [place] [address] CONSULTon 01-26-2024 CONSULT Physical Medicine an d [...] tablet 2.5 mg, 2.5 mg, oral, BID, Maslashondaib Bashar, 2.5 mg at 01/25/24 214 ascorbic acid (Vitamin C) tablet 500 mg, 500 mg, oral, Daily, Ruslan Ortez MD, 500 mg at 01/25/24 0942 bisoprolol (Zebeta) tablet 5 mg, 5 mg, oral, Daily, Masharib Bashar cholecalciferol (Vitamin D-3) tablet 1,000 Units, 1,000 Units, oral, Daily, Ruslan Ortez MD, 1,000 Units at 01/25/24 0942 docusate sodium (Colace) capsule 100 mg, 100 mg, oral, BID, Ruslan Ortez MD, 100 mg at 01/25/24 214 ferrous sulfate tablet 325 mg, 325 mg, oral, Daily with breakfast, Ruslan Ortez MD, 325 mg at 01/25/24 0813 HYDROcodone-acetaminoph en (Cooper) 5-325 mg per tablet 1 tablet, 1 [...] Date CARDIOVE (more content not included)... Normal [facility] CORTISOLon 01-26-2024 CORTISOL (UG/DL) IN SER/PLAS 18.9 ug/dL Normal 03-22 [facility] Comment on above: Performed By: #### L [id number] #### [facility] ([facility]) [address] [place] [address] CORTISOL (UG/DL) IN SER/PLAS 15.1 ug/dL Normal 03-22 [facility] Comment on above: Order Comment: 30-mi n cortisol check after ACTH administration Performed By: #### L [id number] ####[facility] ([facility])[address] [place] [address] MAGNESIUMon 01-26-2024 Magnesium [Mass/Vol] 1.4 mg/dL Low 1.9-2.7 [facility] Comment on above: Performed By: #### L [id number] ####[facility] ([facility])[address] [place] [address] URINALYSIS WITH MICROSCOPICo n 01-26-2024 BILIRUBIN, TOTAL PRESENCE IN URINE Negative Normal Negative [facility] Comment on above: Performed By: #### L [id number] #### [facility] ([facility]) [address] [place] [address] Clarity (U) Clear Normal Clear [facility] Comment on above: Performed By: #### L [id number] #### [facility] ([facility]) [address] [place] [address] Color (U) Straw Abnormal Yellow [facility] Comment on above: Performed By: #### L [id number] #### [facility] ([facility]) [address] [place] [address] Glucose (U) [Mass/Vol] Negative Normal Negative [facility] Comment on above: Performed By: #### L [id number] #### [facility] ([facility]) [address] [place] [address] HEMOGLOBIN PRESENCE IN URINE Small Abnormal Negative [facility] Comment on above: Performed By: #### L [id number] #### [facility] ([facility]) [address] [place] [address] Ketones Ql (U) Negative Normal Negative [facility] Comment on above: Performed By: #### L [id number] #### [facility] ([facility]) [address] [place] [address] LEUKOCYTE ESTERASE PRESENCE IN URINE BY TEST STRIP Trace Abnormal Negative [facility] Comment on above: Performed By: #### L [id number] #### [facility] ([facility]) [address] [place] [address] MUCUS (#/HPF) IN URINE SEDIMENT Occasional Normal None Seen, Occasional, Few [facility] Comment on above: Performed By: #### L [id number] #### [facility] ([facility]) [address] [place] [address] NITRITE PRESENCE IN URINE Negative Normal Negative [facility] Comment on above: Performed By: #### L [id number] #### [facility] ([facility]) [address] [place] [address] pH (U) 5.0 [pH] Normal 5.0-8.0 [facility] Comment on above: Performed By: #### L [id number] #### [facility] ([facility]) [address] [place] [address] Protein (U) [Mass/Vol] Negative Normal Negative [facility] Comment on above: Performed By: #### L [id number] #### [facility] ([facility]) [address] [place] [address] RBC (#/HPF) IN URINE SEDIMENT 6-10 Abnormal None Seen [facility] Comment on above: Performed By: #### L [id number] #### [facility] ([facility]) [address] [place] [address] Specific gravity (U) [Rel density] 1.013 Low 1.015-1.020 [facility] Comment on above: Performed By: #### L [id number] #### [facility] ([facility]) [address] [place] [address] SQUAMOUS EPITHELIAL CELLS (#/HPF) IN URINE SEDIMENT Moderate Abnormal None Seen, Occasional [facility] Comment on above: Performed By: #### L [id number] #### [facility] ([facility]) [address] [place] [address] WBC (LEUKOCYTE) (#/HPF) IN URINE SEDIMENT 3-5 Abnormal None Seen [facility] Comment on above: Performed By: #### L [id number] #### [facility] ([facility]) [address] [place] [address] 30on 01-25-2024 30 The patient is Moderately [...] include meds as prescribed, cold therapy. Normal [facility] 30 The patient is Moderately Stable - Low risk of patient condition declining or worsening The patient's goals for the shift include comfort The clinical goals for the shift include pain management Over the shift, the patient did not make progress toward the following goals. Barriers to progression include post op pain. Recommendations to address these barriers include meds as prescribed. Normal [facility] ALBUMINon 01-25-2024 Albumin [Mass/Vol] 3.4 g/dL Low 3.5-5.7 [facility] Comment on above: Performed By: #### L [id number] #### [facility] ([facility]) [address] [place] [address] BASIC METABOLIC PANELon - Anion gap [Moles/Vol] 10 mmol/L Normal 7-20 [facility] Comment on above: Performed By: #### L [id number] #### [facility] ([facility]) [address] [place] [address] Calcium [Mass/Vol] 10.3 mg/dL Normal 8.6-10.3 [facility] Comment on above: Performed By: #### L [id number] #### [facility] ([facility]) [address] [place] [address] Chloride [Moles/Vol] 106 mmol/L Normal 98-107 [facility] Comment on above: Performed By: #### L [id number] #### [facility] ([facility]) [address] [place] [address] CO2 [Moles/Vol] 24 mmol/L Normal 21-31 [facility] Comment on above: Performed By: #### L [id number] #### [facility] ([facility]) [address] [place] [address] Creatinine [Mass/Vol] 1.94 mg/dL High 0.60-1.20 [facility] Comment on above: Performed By: #### L [id number] #### [facility] ([facility]) [address] [place] [address] GLOMERULAR FILTRATION RATE ML/MIN/1.73 SQ M.PREDICTED 26.2 mL/min/1.73m*2 Low >60.0 [facility] Comment on above: Result Comment: The [facility]???s estimated glomerular filtration rate (eGFR) will no [...] individuals. Performed By: #### L [id number] #### [facility] ([facility]) [address] [place] [address] Glucose [Mass/Vol] 137 mg/dL High 70-100 [facility] Comment on above: Performed By: #### L [id number] #### [facility] ([facility]) [address] [place] [address] Potassium [Moles/Vol] 5.0 mmol/L Normal 3.5-5.1 [facility] Comment on above: Performed By: #### L [id number] #### [facility] ([facility]) [address] [place] [address] Sodium [Moles/Vol] 135 mmol/L Low 136-145 [facility] Comment on above: Performed By: #### L [id number] #### [facility] ([facility]) [address] [place] [address] Urea nitrogen [Mass/Vol] 51 mg/dL High 7-25 [facility] Comment on above: Performed By: #### L [id number] #### [facility] ([facility]) [address] [place] [address] UREA NITROGEN/CREATININE (MASS RATIO) IN SER/PLAS 26.3 Normal [facility] Comment on above: Performed By: #### L [id number] #### [facility] ([facility]) [address] [place] [address] CBCon 01-25-2024 Erythrocyte distribution width (RBC) [Ratio] 13.2 % Normal 11.5-15.0 [facility] Comment on above: Performed By: #### L [id number] ####[facility] ([facility])[address] [place] [address] ERYTHROCYTE MEAN CORPUSCULAR HEMOGLOBIN CONCENTRATION (G/DL) BY AUTOMATED 31.7 g/dL Low 32.0-35.0 [facility] Comment on above: Performed By: #### L [id number] ####[facility] ([facility])[address] [place] [address] Hematocrit (Bld) [Volume fraction] 26.2 % Low 36.0-48.0 [facility] Comment on above: Performed By: #### L [id number] ####[facility] ([facility])[address] [place] [address] Hemoglobin (Bld) [Mass/Vol] 8.3 g/dL Low 12.0-15.0 [facility] Comment on above: Performed By: #### L [id number] ####[facility] ([facility])[address] [place] [address] MCH (RBC) [Entitic mass] 31.4 pg Normal 27.0-33.0 [facility] Comment on above: Performed By: #### L [id number] ####[facility] ([facility])[address] [place] [address] MCV (RBC) [Entitic vol] 99.2 fL High 82.0-98.0 [facility] Comment on above: Performed By: #### Teri [id number] ####[facility] ([facility])[address] [place] [address] PLATELETS (10*3/UL) IN BLOOD AUTOMATED COUNT 188 10*3/uL Normal 150-400 [facility] Comment on above: Performed By: #### Teri [id number] ####[facility] ([facility])[address] [place] [address] RBC (Bld) [#/Vol] 2.64 10*6/uL Low 3.80-5.00 [facility] Comment on above: Performed By: #### L [id number] ####[facility] ([facility])[place] [address] WBC (Bld) [#/Vol] 13.05 10*3/uL High 4.00-10.60 [facility] Comment on above: Performed By: #### L [id number] ####[facility] ([facility])[address] [place] [address] CONSULTon 01-25-2024 CONSULT --- Attestation signed by [...] is currently tolerable. Patient working with PT/OT. GIM has been consulted for worsening bradycardia and [...] 325 mg at 01/25/24 0813 HYDROcodone-acetaminoph en (Cooper) 5-325 mg per tablet 1 tablet, 1 [...] (Narcan) i (more content not included)... Normal [facility] CORTISOLon 01-25-2024 CORTISOL (UG/DL) IN SER/PLAS 2.2 ug/dL Low 6-23 [facility] Comment on above: Performed By: #### L [id number] ####[facility] ([facility])[address] [place] [address] CREATININE, URINE, RANDOMon 01-25-2024 Creatinine (U) [Mass/Vol] 108.0 mg/dL Normal 26-299 [facility] Comment on above: Performed By: #### L [id number] #### [facility] ([facility]) [address] [place] [address] FERRITINon 01-25-2024 FERRITIN (NG/ML) IN SER/PLAS 285.0 ng/mL Normal 11.0-307.0 [facility] Comment on above: Performed By: #### L [id number] #### [facility] ([facility]) [address] [place] [address] FOLATEon 01-25-2024 FOLATE (NG/ML) IN SER/PLAS 16.22 ng/mL Normal 6.6-1000 [facility] Comment on above: Performed By: #### L [id number] #### [facility] ([facility]) [address] [place] [address] IRON AND TIBCon 01-25-2024 IRON (UG/DL) IN SER/PLAS 46 ug/dL Low 50-212 [facility] Comment on above: Performed By: #### L [id number] ####[facility] ([facility])[address] [place] [address] IRON BINDING CAPACITY (UG/DL) IN SER/PLAS 235 ug/dL Low 250-450 [facility] Comment on above: Performed By: #### L [id number] ####[facility] ([facility])[address] [place] [address] IRON BINDING CAPACITY.UNSATURATE D (UG/DL) IN SER/PLAS 189.0 ug/dL Normal 155.0-355.0 [facility] Comment on above: Performed By: #### L [id number] ####[facility] ([facility])[address] [place] [address] IRON SATURATION (%) IN SER/PLAS 20 % Normal 20-50 [facility] Comment on above: Performed By: #### L [id number] ####[facility] ([facility])[address] [place] [address] SODIUM, URINE, RANDOMon 12-30 Sodium (U) [Moles/Vol] 32 mmol/L Normal [facility] Comment on above: Performed By: #### L [id number] #### [facility] ([facility]) [address] [place] [address] TSH3 REFLEX TO FT4on 024 THYROTROPIN (MIU/L) IN SER/PLAS BY DETECTION LIMIT <= 0.05 MIU/L 0.97 mIU/L Normal 0.34-5.60 [facility] Comment on above: Performed By: #### L [id number] #### [facility] ([facility]) [address] [place] [address] VITAMIN B12on 01-25-2024 Cobalamin (Vitamin B12) [Mass/Vol] 310 pg/mL Normal 180-914 [facility] Comment on above: Result Comment: REFAbbie POOLE RANGES: 180-914 pg/mL Normal 145-179 pg/mL Indeterminate <145 pg/mL Deficient Performed By: #### L [id number] ####[facility] ([facility])[address] [place] [address] 30on 01-24-2024 30 The patient is Moderately [...] and maintained or improved Outcome: Progressing Normal [facility] HPon 01-24-2024 HP H&P reviewed. The patient was examined and there are no changes to the H&P. I personally examined the patient and Marked his operative extremity, all questions answered and consents signed. Discussed operative and post op plan. Normal [facility] MRSA/MSSA DNA NASALon 2023 MRSA DNA Negative Normal Negative [facility] Comment on above: Order Comment: Testi ng [...] preclude nasal colonization. Performed By: #### L [id number] ####[facility] ([facility])[address] [place] [address] MSSA DNA Negative Normal Negative [facility] Comment on above: Order Comment: Testi ng [...] preclude nasal colonization. Performed By: #### L [id number] ####[facility] ([facility])[address] [place] [address] OPNOTEon 01-24-2024 OPNOTE TOTAL KNEE ARTHROPLA STY (R) Operative Note Date: 01/24/2024 Location: [facility] Name: Lizabeth Montanez, : 1945, Diagnosis Pre-op Diagnosis * Primary osteoarthritis of right knee [M17.11] Post-op Diagnosis * Primary osteoarthritis of right knee [M17.11] Procedures TOTAL KNEE ARTHROPLASTY 82525 - [place] ARTHRP KNE CONDYLE&PLATU MEDIAL&LAT COMPARTMENTS [place] INJECTION AA&/STRD FEMORAL NERVE W/IMG GDN [[id number]] Surgeons * Mynor Gallegos - Primary Ruslan Lew MD Procedure Summary Anesthesia: General ASA: III Estimated Blood Loss: 250 mL Drains: [REMOVED] Urethral Catheter Non-latex 16 Fr. (Removed) Implants Type Name Action Serial No. Bone Cement CEMENT,BONE,[id number] - [id number] Implanted PERSONA CR FEMUR Implanted PERSONA NATURAL TIBIA Implanted PERSONA PATELLA Implanted PERSONA ARTICULAR SURFACE Implanted Implants : Persona Size 5 CR femur component and size E natural tibial component, Size 35 mm round patellar resurfacing , Size 10 mm Medial congruent poly liner ( MC) Staff: General Manager: Leilani Guerrero RN Scrub Person: Carlie Francisco CST Technical Support 1 Software Engineer: Rogelio Feliz CSA Indications: Lizabeth Montanez is [...] the os (more content not included)... Normal [facility] POCT GLUCOSE METER UNSOLICIT ED RESULTSon 01-24-2024 Glucose [Mass/Vol] 97 mg/dL Normal 70-105 [facility] Comment on above: Order Comment: Waive d Testing in the ED is performed under the ED CLIA certificate #[id number]. Result Comment: czyd orc Performed By: #### L [id number] #### [facility] ([facility]) [address] [place] [address] APTTon 01-16-2024 ACTIVATED PARTIAL THROMBOPLASTIN TIME IN PPP BY COAGULATION ASSAY 33.4 Seconds Normal 25.0-35.0 [facility] Comment on above: Result Comment: Clin ical significance of the APTT is questionable in the presence of heparin. Performed By: #### L [id number] ####[facility] ([facility])[address] [place] [address] BASIC METABOLIC PANELon 12-29 Anion gap [Moles/Vol] 12 mmol/L Normal 7-20 [facility] Comment on above: Performed By: #### L [id number] #### [facility] ([facility]) [address] [place] [address] Calcium [Mass/Vol] 11.5 mg/dL High 8.6-10.3 [facility] Comment on above: Performed By: #### L [id number] #### [facility] ([facility]) [address] [place] [address] Chloride [Moles/Vol] 108 mmol/L High 98-107 [facility] Comment on above: Performed By: #### L [id number] #### [facility] ([facility]) [address] [place] [address] CO2 [Moles/Vol] 24 mmol/L Normal 21-31 [facility] Comment on above: Performed By: #### L [id number] #### [facility] ([facility]) [address] [place] [address] Creatinine [Mass/Vol] 1.75 mg/dL High 0.60-1.20 [facility] Comment on above: Performed By: #### L [id number] #### [facility] ([facility]) [address] [place] [address] GLOMERULAR FILTRATION RATE ML/MIN/1.73 SQ M.PREDICTED 29.6 mL/min/1.73m*2 Low >60.0 [facility] Comment on above: Result Comment: [facility]???s estimated glomerular filtration rate (eGFR) will no [...] individuals. Performed By: #### L [id number] #### [facility] ([facility]) [address] [place] [address] Glucose [Mass/Vol] 96 mg/dL Normal 70-100 [facility] Comment on above: Performed By: #### L [id number] #### [facility] ([facility]) [address] [place] [address] Potassium [Moles/Vol] 4.3 mmol/L Normal 3.5-5.1 [facility] Comment on above: Performed By: #### L [id number] #### [facility] ([facility]) [address] [place] [address] Sodium [Moles/Vol] 140 mmol/L Normal 136-145 [facility] Comment on above: Performed By: #### L [id number] #### [facility] ([facility]) [address] [place] [address] Urea nitrogen [Mass/Vol] 56 mg/dL High 7-25 [facility] Comment on above: Performed By: #### L [id number] #### [facility] ([facility]) [address] [place] [address] UREA NITROGEN/CREATININE (MASS RATIO) IN SER/PLAS 32.0 Normal [facility] Comment on above: Performed By: #### L [id number] #### [facility] [facility] [address] [place] [address] CBC WITH AUTO DIFFERENTIALon 01-16-2024 Basophils (Bld) [#/Vol] 0.05 10*3/uL Normal 0.00-0.20 [facility] Comment on above: Performed By: #### L [id number] ####[facility] ([facility])[address] [place] [address] Basophils/100 WBC (Bld) 0.9 % Normal 0.0-1.0 [facility] Comment on above: Performed By: #### L [id number] ####[facility] ([facility])[address] [place] [address] Eosinophils (Bld) [#/Vol] 0.16 10*3/uL Normal 0.00-0.50 [facility] Comment on above: Performed By: #### L [id number] ####[facility] ([facility])[address] [place] [address] Eosinophils/100 WBC (Bld) 2.7 % Normal 0.0-6.0 [facility] Comment on above: Performed By: #### L [id number] ####[facility] ([facility])[address] [place] [address] Erythrocyte distribution width (RBC) [Ratio] 13.7 % Normal 11.5-15.0 [facility] Comment on above: Performed By: #### L [id number] ####[facility] ([facility])[address] [place] [address] ERYTHROCYTE MEAN CORPUSCULAR HEMOGLOBIN CONCENTRATION (G/DL) BY AUTOMATED 31.8 g/dL Low 32.0-35.0 [facility] Comment on above: Performed By: #### L [id number] ####[facility] ([facility])[address] [place] [address] Hematocrit (Bld) [Volume fraction] 30.8 % Low 36.0-48.0 [facility] Comment on above: Performed By: #### L [id number] ####[facility] ([facility])[address] [place] [address] Hemoglobin (Bld) [Mass/Vol] 9.8 g/dL Low 12.0-15.0 [facility] Comment on above: Performed By: #### L [id number] ####[facility] ([facility])[address] [place] [address] Immature granulocytes (Bld) [#/Vol] 0.01 10*3/uL Normal 0.00-0.20 [facility] Comment on above: Performed By: #### L [id number] ####[facility] ([facility])[address] [place] [address] Immature granulocytes/100 WBC (Bld) 0.2 % Normal 0.0-1.0 [facility] Comment on above: Performed By: #### L [id number] ####[facility] ([facility])[address] [place] [address] Lymphocytes (Bld) [#/Vol] 0.79 10*3/uL Low 1.20-4.00 [facility] Comment on above: Performed By: #### L [id number] ####[facility] ([facility])[address] [place] [address] Lymphocytes/100 WBC (Bld) 13.5 % Low 20.0-45.0 [facility] Comment on above: Performed By: #### L [id number] ####[facility] ([facility])[address] [place] [address] MCH (RBC) [Entitic mass] 31.3 pg Normal 27.0-33.0 [facility] Comment on above: Performed By: #### L [id number] ####[facility] ([facility])[address] [place] [address] MCV (RBC) [Entitic vol] 98.4 fL High 82.0-98.0 [facility] Comment on above: Performed By: #### L [id number] ####[facility] ([facility])[address] [place] [address] Monocytes (Bld) [#/Vol] 0.57 10*3/uL Normal 0.10-1.00 [facility] Comment on above: Performed By: #### L [id number] ####[facility] ([facility])[address] [place] [address] Monocytes/100 WBC (Bld) 9.7 % Normal 5.0-12.0 [facility] Comment on above: Performed By: #### L [id number] ####[facility] ([facility])[address] [place] [address] Neutrophils (Bld) [#/Vol] 4.28 10*3/uL Normal 1.60-7.60 [facility] Comment on above: Performed By: #### L [id number] ####[facility] ([facility])[address] [place] [address] Neutrophils/100 WBC (Bld) 73.0 % High 40.0-72.0 [facility] Comment on above: Performed By: #### L [id number] ####[facility] ([facility])[address] [place] [address] NRBC (PER 100 WBCS) BY AUTOMATED COUNT 0.0 % Normal 0 [facility] Comment on above: Performed By: #### L [id number] ####[facility] ([facility])[address] [place] [address] PLATELETS (10*3/UL) IN BLOOD AUTOMATED COUNT 229 10*3/uL Normal 150-400 [facility] Comment on above: Performed By: #### L [id number] ####[facility] ([facility])[address] [place] [address] RBC (Bld) [#/Vol] 3.13 10*6/uL Low 3.80-5.00 [facility] Comment on above: Performed By: #### L [id number] ####[facility] ([facility])[address] [place], [place] [address] WBC (Bld) [#/Vol] 5.86 10*3/uL Normal 4.00-10.60 [facility] Comment on above: Performed By: #### L [id number] ####[facility] ([facility])[address] [place] [address] Consulton 01-16-2024 Consult [id number] Mignon Montanez E 1945 F Date Provider Department [place] 01/16/2024 293-MYNOR GALLEGOS MP ORTHO MPORTHO Family History Problem Relation Age of Onset Other Mother Other Mother Heart attack Father's Sister Family Status - Relation Status Age at Mother Father's Sister Level of Service:[address]259 [place] OFFICE/OUTPATIENT ESTABLISHED LOW MDM 20 MIN Reason for Visit and Comments: Pain [136] - Pre-op R TKA Normal [facility] HEMOGLOBIN A1Con 01-16-2024 Glucose [Mass/Vol] 103 mg/dL Normal [facility] Comment on above: Performed By: #### L [id number] ####[facility] ([facility])[address] [place] [address] HbA1c (Bld) [Mass fraction] 5.2 % Normal 4.0-6.0 [facility] Comment on above: Performed By: #### L [id number] ####[facility] ([facility])[address] [place] [address] HPon 01-16-2024 Orthopedic Surgery Subjective Chief complaint: [...] the patient's ability to complete ADLs. Normal [facility] Labon 01-16-2024 Lab [id number] MontanezMignon n E 1945 F Date Provider Department [place] 01/16/2024 [id number] RESOURCE [facility] Pavi Family History Problem Relation Age of Onset Other Mother Other Mother Heart attack Father's Sister Family Status - Relation Status Age at Mother Father's Sister Normal [facility] Orders Onlyon 01-16-2024 Orders Only [id number] OmntanezMignon nicolas cinthia E 1945 F Date Provider Department [place] 01/16/2024 KENNA SCHWARTZ [facility] Family History Problem Relation Age of Onset Other Mother Other Mother Heart attack Father's Sister Family Status - Relation Status Age at Mother Father's Sister Normal [facility] PROTIME-INRon 01-16-2024 INR IN PPP BY COAGULATION ASSAY 1.34 High 0.90-1.10 [facility] Comment on above: Result Comment: ACCC P [...] CHEST 1995;108:[id number]. Performed By: #### L [id number] ####[facility] ([facility])[address] [place] [address] PROTHROMBIN TIME (PT) IN PPP BY COAGULATION ASSAY 16.6 Seconds High 12.3-14.8 [facility] Comment on above: Performed By: #### L [id number] ####[facility] ([facility])[address] [place] [address] TYPE AND SCREENon 01-16-2024 AB SCREEN Negative Normal [facility] Comment on above: Performed By: #### L [id number] #### [facility] BLOOD BANK , ABO group Nom (Bld) O Normal [facility] Comment on above: Performed By: #### L [id number] #### [facility] BLOOD [facility] , RH TYPE IN BLOOD Positive Normal [facility] Comment on above: Performed By: #### L [id number] #### [facility] BLOOD [facility] , URINALYSIS MICROSCOPIC WITH REFLEX CULTUREon 01-16-2024 CASTS IN URINE Normal [facility] Comment on above: Performed By: #### L [id number] ####[facility] ([facility])[address] [place] [address] CRYSTALS IN URINE Normal [facility] Comment on above: Performed By: #### L [id number] ####[facility] ([facility])[address] [place] [address] MUCUS (#/HPF) IN URINE SEDIMENT Occasional Normal None Seen, Occasional, Few [facility] Comment on above: Performed By: #### L [id number] ####[facility] ([facility])[address] [place] [address] OTHER MICROSCOPIC ELEMENTS Normal [facility] Comment on above: Performed By: #### L [id number] ####[facility] ([facility])[address] [place] [address] RBC (#/HPF) IN URINE SEDIMENT 0-2 Abnormal None Seen [facility] Comment on above: Performed By: #### L [id number] ####[facility] ([facility])[address] [place] [address] SQUAMOUS EPITHELIAL CELLS (#/HPF) IN URINE SEDIMENT Occasional Normal None Seen, Occasional [facility] Comment on above: Performed By: #### L [id number] ####[facility] ([facility])[address] [place] [address] WBC (LEUKOCYTE) (#/HPF) IN URINE SEDIMENT 3-5 Abnormal None Seen [facility] Comment on above: Performed By: #### L [id number] ####[facility] ([facility])[address] [place] [address] URINALYSIS WITH REFLEX CULTU REon 01-16-2024 BILIRUBIN, TOTAL PRESENCE IN URINE Negative Normal Negative [facility] Comment on above: Performed By: #### L [id number] ####[facility] ([facility])[address] [place] [address] Clarity (U) Clear Normal Clear [facility] Comment on above: Performed By: #### L [id number] ####[facility] ([facility])[address] [place] [address] Color (U) Yellow Normal Yellow [facility] Comment on above: Performed By: #### L [id number] ####[facility] ([facility])[address] [place] [address] Glucose (U) [Mass/Vol] Negative Normal Negative [facility] Comment on above: Performed By: #### L [id number] ####[facility] ([facility])[address] [place] [address] HEMOGLOBIN PRESENCE IN URINE Negative Normal Negative [facility] Comment on above: Performed By: #### L [id number] ####[facility] ([facility])[address] [place] [address] Ketones Ql (U) Negative Normal Negative [facility] Comment on above: Performed By: #### L [id number] ####[facility] ([facility])[address] [place] [address] LEUKOCYTE ESTERASE PRESENCE IN URINE BY TEST STRIP Trace Abnormal Negative [facility] Comment on above: Performed By: #### L [id number] ####[facility] ([facility])[address] [place] [address] NITRITE PRESENCE IN URINE Negative Normal Negative [facility] Comment on above: Performed By: #### L [id number] ####[facility] ([facility])[address] [place] [address] pH (U) 5.0 [pH] Normal 5.0-8.0 [facility] Comment on above: Performed By: #### L [id number] ####[facility] ([facility])[address] [place] [address] Protein (U) [Mass/Vol] Negative Normal Negative [facility] Comment on above: Performed By: #### L [id number] ####[facility] ([facility])[address] [place] [address] Specific gravity (U) [Rel density] 1.015 Normal 1.015-1.020 [facility] Comment on above: Performed By: #### L [id number] ####[facility] ([facility])[address] [place] [address] URINE CULTURE, ROUTINEon Bacteria identified Cx Nom (U) 50,000 - 100,000 CFU/ML Uro-Genital Quintin Normal [facility] Comment on above: Performed By: #### L [id number] #### [facility] BLOOD BANK , Orders Onlyon 01-14-2024 Orders Only [id number] Mignon Montanez 1945 F Date Provider Department Center 01/14/2024 [id number]-XURZYELAINA LEONARDO [facility] PAT [facility] Family History Problem Relation Age of Onset Other Mother Other Mother Heart attack Father's Sister Family Status - Relation Status Age at Mother Father's Sister Normal [facility] Office Visiton 01-07-2024 Follow-up visit [id number] Mignon Montanez n E 1945 Provider Department Center 01/07/2024 3848-YENI UGALDE [facility]ARTIN [facility] Family History Problem Relation Age of Onset Other Mother Other Mother Heart attack Father's Sister Family Status - Relation Status Age at Mother Father's Sister Level of Service:[id number] [place] OFFICE/OUTPATIENT ESTABLISHED LOW MDM 20 MIN Reason for Visit and Comments: Follow-up [770289] - Patient needs cardiac clearance [facility] Office Visiton 11-28-2023 Follow-up visit [id number] Mignon Montanez n E 1945 Provider Department Center 11/28/2023 293-MYNOR GALLEGOS MP ORTHO MPORTHO Family History Problem Relation Age of Onset Other Mother Other Mother Heart attack Father's Sister Family Status - Relation Status Age at Mother Father's Sister Level of Service:73522 [place] OFFICE/OUTPATIENT ESTABLISHED MOD MDM 30 MIN Reason for Visit and Comments: Pain [136] - L tka F/U Normal [facility] XR KNEE JUAN JOSE 3 Von 02-27-2023 XR KNEE JUAN JOSE 3 V EXAMINATION: XR KNEE JUAN JOSE 3 V HISTORY: Osteoarthritis of knee ; chronic bilateral knee pain COMPARISON: XR knee bilateral 04/20/2021 FINDINGS: RIGHT FINDINGS: BONES: Complete loss of the anterior, medial, lateral joint spaces with rdlm-ud-vjnr articulation and marked sclerosis. Lateral subluxation of the tibial plafond in relation to the femoral condyles. Large periarticular degenerative osteophytes involving all 3 compartments. SOFT TISSUES: No visible soft tissue swelling. OTHER: Large joint effusion. LEFT FINDINGS: BONES: Marked narrowing of the anterior, medial, lateral joint spaces with near yire-nb-xrnu articulation and subchondral sclerosis. Prominent lateral subluxation of the tibial plafond in relation to the femoral condyles. Large periarticular degenerative osteophytes involving all 3 compartments. SOFT TISSUES: No visible soft tissue swelling. OTHER: Large joint effusion. IMPRESSION: RIGHT CONCLUSION: Advanced degenerative joint disease. LEFT CONCLUSION: Advanced degenerative joint disease. Electronically authenticated by: SHILA RICHARDS Date: 2023-02-27 16:24 Normal [facility] CBC AUTO DIFFon 12-26-2022 BASO # 0.0 103/ul Normal 0.0-0.1 [facility] Comment on above: Performed By: #### C BC ####[facility] [address] [place] [address]Dr. Malia Bustamante Basophils/100 WBC (Bld) 0.5 % Normal 0.2-2.0 [facility] Comment on above: Performed By: #### C BC ####[facility] [address] [place], [place] [address]Dr. Malia Bustamante EO # 0.2 103/ul Normal 0.0-0.7 [facility] Comment on above: Performed By: #### C BC ####[facility] [address] [place], [place] [address]Dr. Malia Bustamante Eosinophils/100 WBC (Bld) 3.2 % Normal 0.9-7.0 [facility] Comment on above: Performed By: #### C BC ####[facility] E[address] [place], [place] [address]Dr. Malia Bustamante Erythrocyte distribution width (RBC) [Ratio] 13.5 % Normal 11.0-15.0 [facility] Comment on above: Performed By: #### C BC ####[facility] [address] [place], [place] [address]Dr. Malia Bustamante Hematocrit (Bld) [Volume fraction] 31.8 % Critically low 36.0-48.0 [facility] Comment on above: Performed By: #### C BC ####[facility] [address] [place], [place] [address]Dr. Malia Bustamante Hemoglobin (Bld) [Mass/Vol] 10.1 g/dL Critically low 12.0-16.0 [facility] Comment on above: Performed By: #### C BC ####[facility] [address] [place], [place] [address]DrMacey Malia Bustamante IG # 0.02 10e3/ul Normal 0.00-0.03 [facility] Comment on above: Performed By: #### C BC ####[facility] [address] [place] [address]DrMacey Malia Bustamante IG % 0.4 % Normal 0.0-0.5 [facility] [place] Comment on above: Performed By: #### C BC ####[facility] [address] [place] [address]DrMacey Malia Robby LYMPH # 0.8 103/ul Critically low 1.2-3.8 [facility] Comment on above: Performed By: #### C BC ####[facility] [address] [place] [address]DrMacey Malia Robby Lymphocytes/100 WBC (Bld) 13.8 % Critically low 20.5-60.0 [facility] [place] Comment on above: Performed By: #### C BC ####[facility] [address] [place], [place] [address]DrMacey Malia Robby MANUAL DIFF REQ NO Normal [facility] Comment on above: Performed By: #### C BC ####[facility] [address] [place], [place] [address]DrMacey Malia Robby MCH (RBC) [Entitic mass] 32.0 pg Normal 26.7-34.0 [facility] Comment on above: Performed By: #### C BC ####[facility] [address] [place], [place] [address]DrMacey Malia Robby MCHC (RBC) [Mass/Vol] 31.8 g/dL Normal 29.9-35.2 [facility] Comment on above: Performed By: #### C BC ####[facility] [address] [place], [place] [address]DrMacey Malia Robby MCV (RBC) [Entitic vol] 100.6 fL Critically high 81.0-99.0 [facility] [place] Comment on above: Performed By: #### C BC ####[facility] Fe[address] [place], [place] [address]DrMacey Bustamante MONO # 0.4 103/ul Normal 0.3-0.8 [facility] Comment on above: Performed By: #### C BC ####[facility] [address] [place] [address]Dr. Malia Bustamante Monocytes/100 WBC (Bld) 7.9 % Normal 1.7-12.0 [facility] Comment on above: Performed By: #### C BC ####[facility] [address] [place] [address]Dr. Malia Bustamante NEUT # 4.2 103/ul Normal 1.4-6.5 [facility] Comment on above: Performed By: #### C BC ####[facility] [address] [place] [address]Dr. Malia Bustamante Neutrophils/100 WBC (Bld) 74.2 % Normal 43.0-75.0 [facility] Comment on above: Performed By: #### C BC ####[facility] [address] [place] [address]Dr. Malia Bustamante Platelet mean volume (Bld) [Entitic vol] 11.2 fL Normal 9.5-13.5 [facility] Comment on above: Performed By: #### C BC ####[facility] [address] [place] [address]Dr. Malia Bustamante PLT 165 103/ul Normal 150-450 [facility] Comment on above: Performed By: #### C BC ####[facility] [address]zc[address] [place] [address]Dr. Malia Bustamante RBC 3.16 106/ul Critically low 4.20-5.[address] [facility] Comment on above: Performed By: #### C BC ####[facility] [address] [place] [address]Dr. Malia Bustamante WBC 5.6 103/ul Normal 4.0-11.0 [facility] Comment on above: Performed By: #### C BC ####[facility] [address] [place] [address]DrMacey Flakitatahir Bustamante PROF CHEM 8 (BAS METB)on Anion gap [Moles/Vol] 16.3 mmol/L Normal [facility] [place] Comment on above: Performed By: #### B MP ####[facility] Y[address] [place], [place] [address]Dr. Malia Bustamante Calcium [Mass/Vol] 11.1 mg/dL Critically high 8.5-10.1 [facility] Comment on above: Performed By: #### B MP ####[facility] [address] [place], [place] [address]Dr. Malia Bustamante Chloride [Moles/Vol] 113 mmol/L Critically high 98-107 [facility] [place] Comment on above: Performed By: #### B MP ####[facility] Okthf[address] [place], [place] [address]Dr. Flakitatahir Bustamante CO2 [Moles/Vol] 22.9 mmol/L Normal 21.0-32.0 [facility] Comment on above: Performed By: #### B MP ####[facility] Nat[address] [place], [place] [address]Dr. Malia Bustamante Creatinine [Mass/Vol] 1.84 mg/dL Critically high 0.55-1.02 [facility] [place] Comment on above: Performed By: #### B MP ####[facility] [address] [place], [place] [address]Dr. Malia Bustamante EGFR-AF [place] 32 mL/min/1.73m2 Critically low >=60 [facility] Comment on above: Performed By: #### B MP ####[facility] J[address] [place], [place] [address]Dr. Malia Bustamante EGFR-NON AF [place] 27 mL/min/1.73m2 Critically low >=60 [facility] [place] Comment on above: Performed By: #### B MP ####[facility] [address] [place], [place] [address]Dr. Malia Bustamante Glucose [Mass/Vol] 97 mg/dL Normal 74-106 [facility] Comment on above: Performed By: #### B MP ####[facility] P[address]vx[address] [place], [place] [address]Dr. Malia Bustamante Potassium [Moles/Vol] 5.2 mmol/L Critically high 3.5-5.1 [facility] [place] Comment on above: Performed By: #### B MP ####[facility] [address] [place], [place] [address]Es. Malia Bustamante Sodium [Moles/Vol] 147 mmol/L Critically high 136-145 [facility] Comment on above: Performed By: #### B MP ####[facility] [address] [place] [id number]. Malia Bustamante Urea nitrogen [Mass/Vol] 42.0 mg/dL Critically high 7.0-18.0 [facility] [place] Comment on above: Performed By: #### B MP ####[facility] [address] [place] [address]Dr. Malia Bustamante Urea nitrogen/Creatinine [Mass ratio] 22.8 mg/mg Normal [facility] [place] Comment on above: Performed By: #### B MP ####[facility] [address] [place] [id number]. Malia Bustamante US KIDNEYS BLADDERon 023 US KIDNEYS BLADDER US KIDNEYS BLADDER EXAM DATE: 12/08/2022 6:55 AM MST COMPARISON: None available. INDICATION: Chronic kidney disease. TECHNIQUE: Real-time ultrasound scanning of the kidneys and bladder was performed by the grinder hand. Psychiatric Clinician static images are submitted for review. FINDINGS: [...] PAMELA PECK Date: 2022-12-08 13:20 Normal [facility] CULTURE URINEon 12-01-2022 CULTURE URINE Culture Observations : LIGHT GROWTH OF MIXED GENITAL QUINTIN. NO POTENTIAL PATHOGENS SEEN. Normal [facility] Comment on above: Performed By: #### U RCX ####[facility] [address] [place] [address]Dr. Malia Bustamante MICROALBUMIN, RAND URon 03-0 mALB 1.7 mg/L Normal <=30.0 [facility] Comment on above: Performed By: #### M ALBR ####[facility] [address] [place] [address]Dr. Malia Bustamante UA RANDOM W/MICROSCOPICon BACTERIA NONE SEEN Normal NONE SEEN [facility] Comment on above: Performed By: #### U AMIC ####[facility] [address] [place], [place] [address]Dr. Malia Bustamante Bilirubin Ql (U) Negative Normal NEGATIVE [facility] Comment on above: Performed By: #### U AMIC ####[facility] [address] [place], [place] [address]Dr. Malia Bustamante CAST NONE SEEN Normal NONE SEEN [facility] Comment on above: Performed By: #### U AMIC ####[facility] [address] [place] [place] [address]Dr. Malia Bustamante Clarity (U) CLEAR Normal CLEAR [facility] Comment on above: Performed By: #### U AMIC ####[facility] [address] [place], [place] [address]Dr. Malia Bustamante Color (U) LT. YELLOW Normal YELLOW [facility] Comment on above: Performed By: #### U AMIC ####[facility] [address] [place], [place] [address]Dr. Malia Bustamante Crystals LM Nom (Urine sed) NONE SEEN Normal NONE SEEN [facility] Comment on above: Performed By: #### U AMIC ####[facility] [address] [place], [place] [address]Dr. Malia Bustamante Epithelial cells LM Ql (Urine sed) FEW Abnormal NONE SEEN /RARE [facility] Comment on above: Performed By: #### U AMIC ####[facility] [address] [place] [address]Dr. Malia Bustamante Glucose Ql (U) Negative Normal NEGATIVE [facility] Comment on above: Performed By: #### U AMIC ####[facility] [address] [place] [address]Dr. Malia Bustamante Hemoglobin Ql (U) Negative Normal NEGATIVE [facility] Comment on above: Performed By: #### U AMIC ####[facility] [address] [place] [address]Dr. Malia Bustamante Ketones Ql (U) Negative Normal NEGATIVE [facility] Comment on above: Performed By: #### U AMIC ####[facility] [address] [place] [address]Dr. Malia Bustamante LEUKOCYTES Negative Normal NEGATIVE [facility] Comment on above: Performed By: #### U AMIC ####[facility] Q[address] [place], [place] [address]Dr. Yitahir Bustamante MUCOUS NONE SEEN Normal NONE SEEN [facility] Comment on above: Performed By: #### U AMIC ####[facility] N[address] [place], [place] [address]Dr. Malia Bustamante Nitrite Ql (U) Negative Normal NEGATIVE [facility] Comment on above: Performed By: #### U AMIC ####[facility] [address] [place] [address]Dr. Malia Bustamante pH (U) 5.5 [pH] Normal 5-9 [facility] Comment on above: Performed By: #### U AMIC ####[facility] [address] [place], [place] [address]Dr. Malia Bustamante RBC NONE SEEN Abnormal 0-2 [facility] Comment on above: Performed By: #### U AMIC ####[facility] [address] [place] [address]Dr. Flakitatahir Bustamante SPEC GRAVITY 1.020 Normal 1.005-<=1.[address] [facility] Comment on above: Performed By: #### U AMIC ####[facility] [address] [place], [place] [address]Je. Malia Bustamante UA PROTEIN Negative Normal NEGATIVE/ TRACE [facility] Comment on above: Performed By: #### U AMIC ####[facility] [address] [place], [place] [address]Pu. Malia Bustamante Urobilinogen Qn (U) 0.2 {Álvaro'U}/dL Normal 0.2 - 1. 0 [facility] [place] Comment on above: Performed By: #### U AMIC ####[facility] [address] [place], [place] [address]Bx. Malia Bustamante WBC NONE SEEN Normal NONE SEEN [facility] Comment on above: Performed By: #### U AMIC ####[facility] [address] [place], [place] [address]Jh. Malia Robby ECHOCARDIO M/2D COMPLETEon 0 11-01-2022 ECHOCARDIO M/2D COMPLETE Patient: LIZABETH MONTANEZ Exam Date: 11/01/2022 : 1945 Gender:F Ordering : DR ISAK BONE . Admission #: [id number] Family : Order #: [id number] CLICK HERE TO VIEW EXAM ECHOCARDIOGRAM REPORT [...] 96.18 ml, 96.18 ml Dictated by: Radha oPole M.D. on 11/02/2022 at 11:21 Approved by: Radha Poole M.D. on 11/02/2022 at 11:25 Normal [facility] INSULINon 10-30-2022 Insulin 11.5 uIU/mL Normal 2.6-24.9 [facility] [place] Comment on above: Performed By: #### I NSULIN #### [facility] [address] [place] [address] Dr. Malia Bustamante BNPon 10-29-2022 Natriuretic peptide B (Bld) [Mass/Vol] 4315.0 pg/mL Critically high <=1,800.0 [facility] [place] Comment on above: Performed By: #### L IPID, CMP, TSH, T7, BNP #### [facility] [address] [place] [address] [address] Malia Bustamante CBC AUTO DIFFon 10-29-2022 BASO # 0.0 103/ul Normal 0.0-0.1 [facility] [place] Comment on above: Performed By: #### C BC #### [facility] [address] [place] [address] [address] Malia Bustamante Basophils/100 WBC (Bld) 0.6 % Normal 0.2-2.0 [facility] [place] Comment on above: Performed By: #### C BC #### [facility] [address] [place] [address] Dr. Malia Bustamante EO # 0.1 103/ul Normal 0.0-0.7 [facility] [place] Comment on above: Performed By: #### C BC #### [facility] [address] [place] [address] Dr. Malia Bustamante Eosinophils/100 WBC (Bld) 1.6 % Normal 0.9-7.0 [facility] [place] Comment on above: Performed By: #### C BC #### [facility] [address] [place] [address] Dr. Malia Bustamante Erythrocyte distribution width (RBC) [Ratio] 13.1 % Normal 11.0-15.0 [facility] [place] Comment on above: Performed By: #### C BC #### [facility] [address] [place] [address] Dr. Malia Bustamante Hematocrit (Bld) [Volume fraction] 31.3 % Critically low 36.0-48.0 [facility] [place] Comment on above: Performed By: #### C BC #### [facility] [address] [place] [address] Dr. Malia Bustamante Hemoglobin (Bld) [Mass/Vol] 10.3 g/dL Critically low 12.0-16.0 [facility] [place] Comment on above: Performed By: #### C BC #### [facility] [address] [place] [address] Dr. Malia Bustamante IG # 0.03 10e3/ul Normal 0.00-0.03 [facility] [place] Comment on above: Performed By: #### C BC #### [facility] [address] [place] [address] Dr. Malia Bustamante IG % 0.5 % Normal 0.0-0.5 [facility] [place] Comment on above: Performed By: #### C BC #### [facility] [address] [place] [address] Dr. Malia Bustamante LYMPH # 0.7 103/ul Critically low 1.2-3.8 [facility] [place] Comment on above: Performed By: #### C BC #### [facility] [address] [place] [address] Dr. Malia Bustamante Lymphocytes/100 WBC (Bld) 10.1 % Critically low 20.5-60.0 [facility] [place] Comment on above: Performed By: #### C BC #### [facility] [address] [place] [address] Dr. Malia Bustamante MANUAL DIFF REQ NO Normal [facility] Comment on above: Performed By: #### C BC #### [facility] [address] [place] [address] Dr. Malia Bustamante MCH (RBC) [Entitic mass] 32.0 pg Normal 26.7-34.0 [facility] [place] Comment on above: Performed By: #### C BC #### [facility] [address] [place] [address] Dr. Malia Bustamante MCHC (RBC) [Mass/Vol] 32.9 g/dL Normal 29.9-35.2 [facility] [place] Comment on above: Performed By: #### C BC #### [facility] [address] [place] [address] Dr. Malia Bustamante MCV (RBC) [Entitic vol] 97.2 fL Normal 81.0-99.0 [facility] [place] Comment on above: Performed By: #### C BC #### [facility] [address] [place] [address] Dr. Malia Bustamante MONO # 0.5 103/ul Normal 0.3-0.8 [facility] [place] Comment on above: Performed By: #### C BC #### [facility] [address] [place] [address] Dr. Malia Bustamante Monocytes/100 WBC (Bld) 7.3 % Normal 1.7-12.0 [facility] [place] Comment on above: Performed By: #### C BC #### [facility] [address] [place] [address] Dr. Malia Bustamante NEUT # 5.2 103/ul Normal 1.4-6.5 [facility] Comment on above: Performed By: #### C BC #### [facility] [address] [place] [address] Dr. Malia Bustamante Neutrophils/100 WBC (Bld) 79.9 % Critically high 43.0-75.0 [facility] [place] Comment on above: Performed By: #### C BC #### [facility] [address] [place] [address] [address] Malia Bustamante Platelet mean volume (Bld) [Entitic vol] 11.4 fL Normal 9.5-13.5 [facility] [place] Comment on above: Performed By: #### C BC #### [facility] [address] [place] [address] [address] Malia Bustamante PLT 198 103/ul Normal 150-450 [facility] Comment on above: Performed By: #### C BC #### [facility] [address] [address] [address] Malia Bustamante RBC 3.22 106/ul Critically low 4.20-5.40 [facility] Comment on above: Performed By: #### C BC #### [facility] [address] [place] [address] [address] Malia Bustamante WBC 6.4 103/ul Normal 4.0-11.0 [facility] [place] Comment on above: Performed By: #### C BC #### [facility] [address] [address] [address] Malia Bustamante FREE THYROXINE INDEX T7on FTI 3.26 Normal 1.30-4.50 [facility] [place] Comment on above: Performed By: #### L IPID, CMP, TSH, T7, BNP #### [facility] [address] [address] [address] Malia Bustamante T3U 35.0 % Normal 30.0-39.0 [facility] [place] Comment on above: Performed By: #### L IPID, CMP, TSH, T7, BNP #### [facility] [address] [address] [address] Malia Bustamante T4 [Mass/Vol] 9.30 ug/dL Normal 4.80-13.90 [facility] Comment on above: Performed By: #### L IPID, CMP, TSH, T7, BNP #### [facility] [address] [address] [address] Malia Bustamante GLYCOHEMOGLOBIN A1Con 2022 ADA RECOMMENDATION SEE BELOW Normal [facility] Comment on above: Result Comment: ADA RECOMMENDED LIMIT 4.0 - 6.0 ADA THERAPEUTIC TARGET < 7.0 ACTION SUGGESTED > 7.0 Performed By: #### A 1C #### [facility] [address] [address] [address] Malia Bustamante Glucose [Mass/Vol] 97 mg/dL Normal [facility] Comment on above: Performed By: #### A 1C #### [facility] [address] [address] [address] Malia Bustamante HbA1c (Bld) [Mass fraction] 5.0 % Normal 4.5-6.2 [facility] [place] Comment on above: Performed By: #### A 1C #### [facility] [address] [address] [address] Malia Bustamante IRONon 10-29-2022 Iron [Mass/Vol] 78.0 ug/dL Normal 50.0-170.0 [facility] Comment on above: Performed By: #### I KUN BLUE ####[facility] [address] [place] [address]Dr. Malia Bustamante LIPID PROFILEon 10-29-2022 CHOL-HDL RATIO NORM SEE BELOW Normal [facility] Comment on above: Result Comment: 3.3 - 4.4 LOW RISK 4.4 - 7.1 AVERAGE RISK 7.1 - 11.0 MODERATE RISK >11.0 HIGH RISK Performed By: #### L IPID, CMP, TSH, T7, BNP #### [facility] [address] [address] [address] Malia Bustamante Cholesterol [Mass/Vol] 131 mg/dL Normal <=200 [facility] Comment on above: Performed By: #### L IPID, CMP, TSH, T7, BNP #### [facility] [address] [address] [address] Malia Bustamante Cholesterol in HDL [Mass/Vol] 51 mg/dL Normal 40-60 [facility] [place] Comment on above: Performed By: #### L IPID, CMP, TSH, T7, BNP #### [facility] [address] [address] [address] Malia Bustamante Cholesterol in LDL [Mass/Vol] 59.0 mg/dL Normal [facility] [place] Comment on above: Performed By: #### L IPID, CMP, TSH, T7, BNP #### [facility] [address] [address] [address] Malia Bustamante Cholesterol.total/C holesterol in HDL [Mass ratio] 2.6 {ratio} Normal [facility] [place] Comment on above: Performed By: #### L IPID, CMP, TSH, T7, BNP #### [facility] [address] [address] [address] Malia Bustamante HDL NORMAL > or = 60 mg/dl - LO W CARDIOVASCULAR RISK <40 mg/dl - HIGH CARDIOVASCULAR RISK Normal [facility] [place] Comment on above: Performed By: #### L IPID, CMP, TSH, T7, BNP #### [facility] [address] [address] [address] Malia Bustamante LDL CALC NORMAL SEE BELOW Normal [facility] Comment on above: Result Comment: <100 mg/dl OPTIMAL 100 - 129 mg/dl NEAR OR ABOVE OPTIMAL 130 - 159 mg/dl BORDERLINE HIGH 160 - 189 mg/dl HIGH >190 mg/dl VERY HIGH Performed By: #### L IPID, CMP, TSH, T7, BNP #### [facility] [address] [address] [address] Malia Bustamante Triglyceride [Mass/Vol] 105 mg/dL Normal <=150 [facility] [place] Comment on above: Performed By: #### L IPID, CMP, TSH, T7, BNP #### [facility] [address] [address] [address] Malia Bustamante VLDL CALC 21.0 mg/dL Normal [facility] [place] Comment on above: Performed By: #### L IPID, CMP, TSH, T7, BNP #### [facility] [address] [address] [address] Malia Bustamante PROF 14(COMP METB)on 023 Albumin [Mass/Vol] 3.8 g/dL Normal 3.4-5.0 [facility] Comment on above: Performed By: #### L IPID, CMP, TSH, T7, BNP #### [facility] [address] [address] [address] Malia Bustamante Albumin/Globulin [Mass ratio] 1.2 {ratio} Normal [facility] [place] Comment on above: Performed By: #### L IPID, CMP, TSH, T7, BNP #### [facility] [address] [place] [address] Dr. Malia Bustamante ALP [Catalytic activity/Vol] 53 U/L Normal 46-116 [facility] [place] Comment on above: Performed By: #### L IPID, CMP, TSH, T7, BNP #### [facility] [address] [place] [address] Dr. Malia Bustamante ALT [Catalytic activity/Vol] 16 U/L Normal 14-59 [facility] [place] Comment on above: Performed By: #### L IPID, CMP, TSH, T7, BNP #### [facility] [address] [place] [address] Dr. Malia Bustamante Anion gap [Moles/Vol] 15.0 mmol/L Normal [facility] [place] Comment on above: Performed By: #### L IPID, CMP, TSH, T7, BNP #### [facility] [address] [place] [address] Dr. Malia Bustamante AST [Catalytic activity/Vol] 18 U/L Normal 15-37 [facility] [place] Comment on above: Performed By: #### L IPID, CMP, TSH, T7, BNP #### [facility] [address] [place] [address] Dr. Malia Bustamante Bilirubin [Mass/Vol] 0.4 mg/dL Normal 0.2-1.0 [facility] [place] Comment on above: Performed By: #### L IPID, CMP, TSH, T7, BNP #### [facility] [address] [place] [address] Dr. Malia Bustamante Calcium [Mass/Vol] 10.3 mg/dL Critically high 8.5-10.1 [facility] Comment on above: Performed By: #### L IPID, CMP, TSH, T7, BNP #### [facility] [address] [place] [address] Dr. Malia Bustamante Chloride [Moles/Vol] 110 mmol/L Critically high 98-107 [facility] Comment on above: Performed By: #### L IPID, CMP, TSH, T7, BNP #### [facility] [address] [address] [address] Malia Bustamante CO2 [Moles/Vol] 21.6 mmol/L Normal 21.0-32.0 [facility] Comment on above: Performed By: #### L IPID, CMP, TSH, T7, BNP #### [facility] [address] [place] [address] Dr. Malia Bustamante Creatinine [Mass/Vol] 1.53 mg/dL Critically high 0.55-1.02 [facility] [place] Comment on above: Performed By: #### L IPID, CMP, TSH, T7, BNP #### [facility] [address] [place] [address] Dr. Malia Bustamante EGFR-AF [place] 40 mL/min/1.73m2 Critically low >=60 [facility] [place] Comment on above: Performed By: #### L IPID, CMP, TSH, T7, BNP #### [facility] [address] [place] [address] Dr. Malia Bustamante EGFR-NON AF [place] 33 mL/min/1.73m2 Critically low >=60 [facility] [place] Comment on above: Performed By: #### L IPID, CMP, TSH, T7, BNP #### [facility] [address] [place] [address] Dr. Malia Bustamante Globulin (S) [Mass/Vol] 3.2 g/dL Normal [facility] [place] Comment on above: Performed By: #### L IPID, CMP, TSH, T7, BNP #### [facility] [address] [place] [address] Dr. Malia Bustamante Glucose [Mass/Vol] 106 mg/dL Normal 74-106 [facility] Comment on above: Performed By: #### L IPID, CMP, TSH, T7, BNP #### [facility] [address] [address] [address] Malia Bustamante Potassium [Moles/Vol] 4.6 mmol/L Normal 3.5-5.1 [facility] Comment on above: Performed By: #### L IPID, CMP, TSH, T7, BNP #### [facility] [address] [address] [address] Malia Bustamante Protein [Mass/Vol] 7.0 g/dL Normal 6.4-8.2 [facility] Comment on above: Performed By: #### L IPID, CMP, TSH, T7, BNP #### [facility] [address] [place] [address] Dr. Malia Bustamante Sodium [Moles/Vol] 142 mmol/L Normal 136-145 [facility] Comment on above: Performed By: #### L IPID, CMP, TSH, T7, BNP #### [facility] [address] [place] [address] Dr. Malia Bustamante Urea nitrogen [Mass/Vol] 38.0 mg/dL Critically high 7.0-18.0 [facility] [place] Comment on above: Performed By: #### L IPID, CMP, TSH, T7, BNP #### [facility] [address] [place] [address] Dr. Malia Bustamante Urea nitrogen/Creatinine [Mass ratio] 24.8 mg/mg Normal [facility] [place] Comment on above: Performed By: #### L IPID, CMP, TSH, T7, BNP #### [facility] [address] [place] [address] Dr. Malia Bustamante TSHon 10-29-2022 TSH 2.124 uIU/mL Normal 0.358-3.740 [facility] Comment on above: Performed By: #### L IPID, CMP, TSH, T7, BNP #### [facility] [address] [place] [address] Dr. Malia Bustamante VITAMIN D 25 OHon 10-29-2022 VIT D 25-OH 69.6 ng/mL Normal [facility] [place] Comment on above: Performed By: #### Kaylie BLUE VITAD ####[facility] [address] [place] [address]Dr. Malia Bustamante VIT D RANGES SEE BELOW Normal [facility] Comment on above: Result Comment: <20 ng/mL Vit D deficient 20 - <30 ng/mL Vit D insufficient 30 - 100 ng/mL Vit D sufficient >100 ng/mL Potential Toxicity Performed By: #### I MIRZA, VITAD ####[facility] [address] [address]Dr. Malia Bustamante CALCIUMon 09-05-2022 Calcium [Mass/Vol] 10.5 mg/dL Critically high 8.5-10.1 [facility] Comment on above: Performed By: #### C Marb[place], CREA ####[facility] [address] [place], [place] [address]Dr. Malia Bustamante CREATININEon 09-05-2022 Creatinine [Mass/Vol] 1.60 mg/dL Critically high 0.55-1.02 [facility] [place] Comment on above: Performed By: #### C Marbella, CREA ####[facility] [address] [place] [address]Dr. Malia Bustaamnte EGFR-AF [place] 38 mL/min/1.73m2 Critically low >=60 [facility] [place] Comment on above: Performed By: #### C Marbella, CREA ####[facility] [address] [place] [address]Dr. Malia Bustamante EGFR-NON AF [place] 31 mL/min/1.73m2 Critically low >=60 [facility] [place] Comment on above: Performed By: #### C A, CREA ####[facility] [address] [place] [address]Dr. Malia Bustamante MG MAMM SCREEN 3D JUAN JOSE CADon 05-25-2022 MG MAMM SCREEN 3D JUAN JOSE CAD Patient: LIZABETH MONTANEZ Exam Date: 05/25/2022 : 1945 Gender:F Ordering : DR ISAK BONE . Admission #: [id number] Family : Order #: [id number] CLICK HERE TO VIEW EXAM RADIOLOGY REPORT [...] breast cancer at age 61. LOCATION: [facility] BREAST COMPOSITION: Heterogeneously dense,which may obscure small [...] M.D. on 05/25/2022 at 14:19 Normal [facility] Encounters Encounter Date Encounter Type Care Provider Facility Start: 11-17-2024 End: 11-17-2024 ambulatory [facility] Start: 08-13-2024 End: 08-13-2024 ambulatory [facility] Start: 08-13-2024 ambulatory [facility] Start: 05-15-2024 End: 05-15-2024 ambulatory [facility] Start: 03-12-2024 End: 03-12-2024 ambulatory [facility] Start: 03-02-2024 End: 03-02-2024 ambulatory [facility] Start: 02-06-2024 ambulatory [facility] Start: 01-24-2024 Evaluation and manag ement of inpatient [facility] Start: 01-24-2024 End: 01-30-2024 Evaluation and management of inpatient [facility] Start: 01-16-2024 End: 01-16-2024 ambulatory [facility] Start: 01-16-2024 Encounter for preprocedural laboratory examination [facility] Start: 01-07-2024 End: 01-07-2024 [facility]: 11-28-2023 End: 11-28-2023 ambulatory [facility] Start: 11-28-2023 End: 11-28-2023 ambulatory [facility] Start: 02-27-[address] ISAK BONE . Facili ty:[facility] Start: 12-28-2022 Encounter for other preprocedural examination YENI UGALDE [facility] [place] Start: 12-26-2022 End: 12-27-2022 ambulatory YENI UGALDE [...] ISAK BONE . Facility:[facility] Start: 10-28-2017 Ambulatory [facility] Start: 06-06-2017 End: 06-07-2017 Ambulatory DEFAULT PHYSICIAN Facility:[facility] Procedures Date Procedure Procedure Detail Performing Clinician Start: 05-15-2024 Follow-up visit Follow-up YENI UGALDE Payers Date Payer Category Payer Medicare [id number] 1958 Self-pay 1945 Unknown [id number] 2.16.84 [id number] 1945 Unknown [id number] 2.16.84 [id number] 1945 Unknown [id number] 2.16.84 [id number] 1945 Unknown [id number] 2.16.84 [id number] 1945 Unknown [id number] 2.16.84 [id number] 1945 Unknown [id number] 2.16.84 [id number] 1945 Unknown [id number] 2.16.84 [id number] 1945 Unknown [id number] 2.16.84 [id number] 1945 Unknown [id number] 2.16.84 [id number] Unknown Clinical Notes 11-28-2023 to 11-17-2024 Note Date & Type Note Facility 11-17-2024 Note [facility] CARDIOLOGY PROGR ESS NOTE HPI Patientis a 77 yo female with a past medical history including chronic afib, hypertension, and LVH. Cardiology clinic for routine follow-up post surgery. Patient here for 6 mo follow up chronic afib, mitral valve regurgitation, hypertension, and pulmonary hypertension. She is due for annual routine echo in February 2025. No recent labs. 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 She denies chest pain, SOB, palpitations, lightheadedness/syncope, and bleeding on Eliquis. No chest pain or shortness of breath. No edea, orthopnea, or PND. No additional complaints or concerns. BP has been poorly controlled. She states that her Bp medications were changed after surgery. She had a TTE perfoemd which showed moderate MR. DENISE previously demonstrated mild to moderate MR and mild AI. She feels well. She is taking medications as prescribed. No bleeding issues. Cardiology ROS: 10 point ROS is performed and is negative unless otherwise specified in HPI. Visit Vitals OB Status Postmenopausal Smoking Status Never Medications: Current Outpatient Medications on File Prior to Visit Medication Sig Dispense Refill allopurinol (Zyloprim) 100 mg tablet 1 (one) time each day at the same time. apixaban (Eliquis) 2.5 mg tablet Take 1 tablet (2.5 mg) by mouth in the morning and at bedtime for 191 doses. 60 tablet 3 apixaban (Eliquis) 2.5 mg tablet every 12 [...] before January 29, 2024. 60 tablet 2 No current facility-administered medications on file prior [...] prophylaxis Heart rate well controlled continue bisprolol Continue current medication regimen Hypertensive disorder Bp poorly controlled Will increase entresto dose and will re-start hydralazine Pulmonary hypertension (CMS/HCC) RVSP 76 mm Hg on echo RHC performed and RVSp was 38, mean PA was 25, and PCWP was 16. Palpitations Admits occasional palpitations but states is no worse than usual continue all medications mod MR Continue current medical therapy Repeat echo in April, or sooner as needed Plan of care discussed with patient. All questions were answered. Patient voices understanding and is agreeable with current plan. Patient was educated on red flag symptoms. Strict return precautions were provided. Patient verbalizes understanding Yeni Ugalde MD [facility] 08-13-2024 Note Orthopedic Surgery Subjective 01/24/2024 Total Knee Arthroplasty - Right 08/13/24 Patient is here for routine follow-up. She is s/p right TKA on 01/24/2024. Patient is now 7 months postoperatively. Patient states that overall she has been doing very well. Patient is able to ambulate with a cane. Patient does state that she has had several instances where she has felt somewhat unstable on the right knee when going from a seated to standing position. She states that during these times if she straightens out her leg and moves it [id number] she is able to stand up without issue but it has caused her some anxiety. She did have a recent fall 2 weeks ago and was evaluated at an outside ED where x-rays were taken and were negative for fracture or any implant instability. Patient denies fever or chills. She denies numbness or tingling or other constitutional symptoms at this time. 03/12/2024 Lizabeth Montanez is a 78 y.o. F [...] her Eliquis. No concerns at today's appointment. History Past Surgical History: Procedure Laterality Date [...] no acute distress. RLE: - Knee incision is well-healed no drainage or erythema. No effusion. No calf pain. - No tenderness to palpation. -Patient is able to range her knee from 0 degrees extension to approximately 110 degrees flexion -Right knee is stable with full extension with varus and valgus stress. There is mild mid flexion instability noted. Stable to anterior posterior drawer - Strength 5/5 for both flexion and extension - Sensation grossly intact in the sural, saphenous, and superficial peroneal nerve distributions - Lower extremity well perfused X-rays obtained today 08/13/2024 with multiple views were reviewed: These demonstrate maintained stable alignment of the right knee. Hardware is in place without signs of loosening or failure. Imaging personally reviewed and interpreted by attending physician. Findings discussed with patient. Assessment/Plan Lizabeth Montanez is a 79 y.o. year old female s/p Total Knee Arthroplasty - Right (01/24/2024) continues doing well Discussed the patient's clinical and radiographic findings in detail and answered all questions. -Continue home exercises -Continue weightbearing as tolerated - Continue using walker when outside of house especially in increment weather but otherwise can use a cane - Patient reminded she cannot undergo any dental work over the next 6 weeks and will need to receive antibiotics prior to any dental work received after these next 6 weeks. - RTC in 1 for reevaluation and repeat x-rays Ari Dey MD Orthopaedic Surgery PGY-3 08/13/24 12:15 PM By using the attestations below, the [...] be an additional personal documentation from me. [facility] 05-15-2024 [facility] UTP CARDIOLOGY PROGR ESS NOTE [...] provided. Patient verbalizes understanding Yeni Ugalde MD [facility] 03-12-2024 Note Orthopedic Surgery Subjective 01/24/2024 Total [...] ensure accurate documentation. Additional Comments: none Mynor [facility] 02-06-2024 Note Orthopedic Surgery Subjective 01/24/2024 [...] be an additional personal documentation from me. [facility] 01-30-2024 Note Physical Therapy Physical Therapy Treatment [...] T-Score: 18 - (more content not included)... [facility] 01-30-2024 Note ------ Attestation signed by Mynor [...] Ruslan Ortez MD Orthopaedic Surgery, PGY-V 01/30/2024 [facility] 01-30-2024 Note Followed up with pt on SNF vs. HHC and pt decided to discharge home today w/ HHC. Requested [facility], referral sent. UPDATE 11:10AM- [facility] has accepted. Sent final AVS. [facility] 01-30-2024 Note Occupational Therapy Occupational Therapy Treatment [...] in chair at [facility] OT Discharge Recommendation [facility] vs home with assist OT Equipment [...] change brief. Pt has sock aid and hi ranger operator at home to use with LB dressing [...] to complete g (more content not included)... [facility] 01-29-2024 Note Discharge Planning U pdate OTM team notified that IPR placement was denied. I (social services analyst) along with C met with patient bedside to discuss discharge planning. Patient states she is feeling good and believes she should be able to return home. We took the time to explain SNF & HHC to patient. She reports she has a history of HHC through [facility]. She was encouraged to think about the direction she would like to go and floor social services analyst will follow up tomorrow. She showed understanding and was agreeable. She was also provided a SNF list to review. After today's conversation, it appears that patient is leaning towards going home, with HHC assistance. New discharge disposition: HHC vs. SNF [facility] 01-29-2024 Note Sent updates to [facility] IPR and awaiting pre-cert which was started on 01/26. [facility] 01-29-2024 Note GIM Inpatient Progre ss Note [...] , ABGPO2 , ABGHCO3 , ABGBASEDEFIC , [id number] , ABGOXYGENSOU No lab exists for component: [...] overload S/p R TKR Paroxysmal A-fib (on ) HFpEF Mild-moderate MR s/p DENISE (2022) Patent coronary arteries with mild pul HTN (PCWP 16 mm Hg) s/p LHC and RHC (11/2022) CKD 3b PLAN: Will continue monitoring renal function closely. Patient's renal function is back to baseline. Will continue holding hydrochlorothiazide, Cardizem, and Entresto. Patient can follow-up with her atm technician to have these resumed in the future if necessary. [facility] SHILPI STEINER MD, PGY-2, DEPARTMENT OF INTERNAL M (more content not included)... [facility] 01-28-2024 Note ------ Attestation signed by Landry [...] Montanez Age - 78 y.o. - 1945 [place] # - [id number] Date of Admission - 01/24/2024 5:39 AM [...] , ABGPO2 , ABGHCO3 , ABGBASEDEFIC , [id number] , ABGOXYGENSOU No lab exists for component: [...] A-fib (on EQ) (more content not included)... [facility] 01-28-2024 Note Physical Therapy Physical Therapy Treatment [...] and agreeable to activities as able. RN okjoss session. Vision - Basic Vision - Basic [...] Help from ano (more content not included)... [facility] 01-28-2024 Note Occupational Therapy Occupational Therapy Treatment Note Patient Name: Lizabeth Montanez Patient Date of : 1945 Today's Date: 01/28/24 Time in: 0834 Time Out: 0931 Total Time: 57 Active Ambulatory Problems Diagnosis [...] at [facility] Objective 2 OT Discharge Recommendation [facility] OT Equipment Recommendations TBD General Pain [...] to recliner with hands on for safety. [employer] Information Clerk notes pt requires increased time. No LOB [...] with no assistance (more content not included)... [facility] 01-27-2024 Note DISCHARGE PLANNING U ALEE Lott (social services analyst) spoke to admissions team at [facility]. They confirmed that they submitted for insurance authorization. Updates sent via [employer]. Discharge barriers: medical readiness/stability, insurance authorization [facility] 01-27-2024 Note Physical Therapy Physical Therapy Treatment [...] Hyponatremia Hypomagnesemia Stage 4 chronic kidney disease ([facility]/HCC) Objective General Visit Information: PT Last Visit [...] Assistance 2: Conta (more content not included)... [facility] 01-27-2024 Note ------ Attestation signed by Isak [...] Montanez Age - 78 y.o. - 1945 [place] # - [id number] Date of Admission - 01/24/2024 5:39 AM [...] , ABGPO2 , ABGHCO3 , ABGBASEDEFIC , [id number] , ABGOXYGENSOU No lab exists for component: [...] Mild hyponatremia, likel (more content not included)... [facility] 01-27-2024 Note Occupational Therapy Occupational Therapy Treatment Note Patient Name: Lizabeth Montanez Patient Date of : 1945 Today's Date: 01/27/24 Time in: 1022 Time Out: 1120 Total Time: 58 Active Ambulatory Problems Diagnosis Date Noted Chronic atrial fibrillation (CMS/HCC) 03/09/2008 Disorder of cardiovascular system 03/15/2008 Left ventricular hypertrophy 03/09/2008 Obesity 03/24/2010 Palpitations 08/18/2013 Pulmonary hypertension ([facility]/HCC) 06/15/2013 Warfarin therapy started 03/23/2008 Nonrheumatic mitral valve regurgitation 11/07/2022 Abnormal stress test 12/20/2022 Osteoarthritis of knee 04/16/2023 S/P total knee arthroplasty, left 07/12/2023 Hx of total knee arthroplasty, left 07/27/2023 COVID-19 09/13/2023 Right knee pain 12/07/2023 Resolved Ambulatory Problems Diagnosis Date Noted No Resolved Ambulatory Problems Past Medical History: Diagnosis Date Atrial fibrillation ([facility]) Hypertension OA (osteoarthritis) PONV (postoperative nausea and vomiting) OT Received On 01/27/24 Subjective I had my other knee done in June and its doing great! Objective 1 Pt asked to return to bed at [facility] (Upon arrival pt was up in chair) Objective 2 OT Discharge Recommendation [facility] OT Equipment Recommendations TBD General Pain [...] and independence with ADL's to return to OF Multi-Disciplinary Problems (from Occupational Therapy) Active Problems [...] 01/25/24 [place] (more content not included)... [facility] 01-26-2024 Note Followed up with pt on IPR decision. Pt agreeable [facility] Advised pt of referral/pre-cert process and also warned of potential transport costs going that far. Pt stated she may elect to have family transport if able. [facility] 01-26-2024 Note ------ Attestation signed by Isak [...] Montanez Age - 78 y.o. - 1945 N - [id number] Date of Admission - 01/24/2024 5:39 AM [...] , ABGPO2 , ABGHCO3 , ABGBASEDEFIC , [id number] , ABGOXYGENSOU No lab exists for component: [...] EQ) HFpEF Mi (more content not included)... [facility] 01-26-2024 Note Physical Therapy Carlos atment Patient [...] support on RW. Exercise: Pt instructed in 10/09 bilat LE strengthening ex to increase ease [...] within reach, she rates R knee pain 01/07. Mobility 6-Click T-Score: 6 Clicks (Mobility) Help [...] Clicks T-Score: 18 Assessment: PT Assessment PT Assessment/GATE CUTTER Summary: Pt demonstrates decreased strength and ROM [...] Date End Date (more content not included)... [facility] 01-26-2024 Note ------ Attestation signed by Mynor [...] Le MD Orthopaedic Surgery, PGY-1 Ortho Pager [phone] 01/26/24 6:44 AM I am available via [facility] 6a-6p. May contact the on-call resident with any concerns via the Orthopaedic pager at any time. 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 Pt stated she would like to discuss this with her family tonight before making a decision. Advised her we will follow up tomorrow. [facility] 01-25-2024 Note Occupational Therapy Occupational Therapy Evaluation [...] a 78 y.o. female who presents to [facility] for R TKA which was performed [...] Level of Function Prior Function Level of [place]: Independent with ADLs and functional transfers, Independent [...] Eating meals?: None (Independent) Total Score OT [facility]: 17 Assessment/Plan OT Assessment OT Impairments: Decre (more content not included)... [facility] 01-25-2024 Note Physical Therapy Rosemary zavala Patient Name: Lizabeth Montanez Today's Date: 01/25/2024 Admit Date: 01/24/2024 Time In: 8:47 AM Time Out: 9:09 AM Cumulative minutes: 22 minutes Billed minutes: 22 minutes History of present illness Lizabeth Montanez is a 78 y.o. female who presents to [facility] for R TKA which was performed [...] Help from an (more content not included)... [facility] 01-25-2024 Note ------ Attestation signed by Mynor [...] Le MD Orthopaedic Surgery, PGY-1 Ortho Pager [phone] 01/25/24 8:16 AM I am available via [facility] 6a-6p. May contact the on-call resident with any concerns via the Orthopaedic pager at any time. [facility] 01-24-2024 Note Patient: Lizabeth nicolas Procedure Summary Date: 01/24/24 Room / Location: [facility] OPERATING ROOM 02 / [facility] Operating Room Anesthesia Start: 0738 Anesthesia Stop: 1053 Procedure: TOTAL KNEE ARTHROPLASTY [...] per anesthesia protocol. No notable events documented. [facility] 01-24-2024 Note Patient: Lizabeth nicolas Procedure Summary Date: 01/24/24 Room / Location: [facility] OPERATING ROOM 02 / [facility] Operating Room Anesthesia Start: 737 Anesthesia Stop: Procedure: TOTAL KNEE ARTHROPLASTY (Right: Knee) Diagnosis: Primary osteoarthritis of right knee (Primary osteoarthritis of right knee [M17.11]) Surgeons: Mynor Gallegos MD Responsible Provider: Wali Chavez MD Anesthesia Type: general ASA Status: 3 Anesthesia Post Transport Note Transport to: PACU O2 Route: room air Patient Monitor: direct observation Transport: uneventful Patient condition is: stable [facility] 01-24-2024 Note Airway Date/Time: 01/24/2024 7:47 AM Urgency: elective General Information and Staff Patient location during procedure: OR Anesthesiologist: Wali Chavez MD Resident/COLLEGE ATHLETE/CAA: RUBENS Dougherty Performed: resident/COLLEGE ATHLETE/CAA Indications and Patient Condition Indications for airway [...] 1 Number of other approaches attempted: 0 [facility] 01-24-2024 Note Patient: Lizabeth nicolas Procedure Information Date/Time: 01/24/24 0730 Procedure: TOTAL KNEE ARTHROPLASTY (Right: Knee) - [facility] NOTIFIED 01/20 Location: [facility] OPERATING ROOM 02 / [facility] Operating Room Surgeons: Mynor Gallegos MD Relevant [...] Plan discussed with CAA. Additional Equipment Requests [facility] 01-16-2024 Note I met with the jake kingston for pre-operative education and discharge planning prior to her joint replacement surgery. The patient would like to discharge to home following her release from the hospital. But she also stated she may like to go to a rehab if physical therapy recommends she should. She would HHC with [facility] if she discharges home but if she needs a rehab she would like to go to [facility]. Patient is aware she will be evaluated after surgery to see if she is safe to discharge home or not. She already has a rolling walker, raised toilet seat and shower chair. [facility] 01-16-2024 Note Orthopedic Surgery Subjective Chief complaint: [...] benefit the patient's ability to complete ADLs. 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 Do not wear perfume, make-up, nail maldivian, or lotions on the day of your [...] need to make any changes, please call [phone]. Notify your surgeon if you develop any illness such as a cold, cough, fever, sore throat or vomiting between now and your surgery. Thank you for entrusting us with your care. [facility] Surgical Services Team [facility] 01-07-2024 Note UTP CARDIOLOGY PROGR ESS NOTE [...] provided. Patient verbalizes understanding Yeni Ugalde MD [facility] 11-28-2023 Note Orthopedic Surgery Subjective Chief complaint: [...] Additional Comments: none Gertrude Alan, MS3 [facility] [employer] 11/28/2023 [facility] Summary Purpose Family History No Family History Records FoundNo Family History Records FoundNo Family History Records FoundNo Family History Records Found Advance Directives No Advanced Directives Records FoundNo Advanced Directives Records FoundNo Advanced Directives Records FoundNo Advanced Directives Records Found Additional Source Comments INFORMATION SOURCE (unrecogn ized section and content) DATE CREATED AUTHOR 03/24/2018 [facility] DATE CREATED AUTHOR AUTHOR'S ORGANIZ ATION 03/26/2018 [facility] DATE CREATED AUTHOR AUTHOR'S ORGANIZ ATION 03/08/2023 [facility] DATE CREATED AUTHOR AUTHOR'S ORGANIZ ATION 11/18/2024 [facility] FOR RECORDS PERTAINING TO PATIENTS WHO ARE [...] BE BASED ON THE PRIMARY CLINICAL RECORDS. [employer] provides no warranty or guarantee of the accuracy or completeness of information in this document.
[2024-12-08 11:05] LABS: Basophils Percent Auto 0.5 % (0.2-2.0); Eosinophils Percent Auto 0.5 % (0.9-7.0); Hematocrit 35.8 % (36.0-48.0); Hemoglobin 11.6 g/dL (12.0-16.0); Immature Granulocytes Abs Auto 0.02 10^3/uL (0.00-0.03); Immature Granulocytes Pct Auto 0.2 % (0.0-0.5); Lymphocytes Absolute Auto 0.8 10^3/uL (1.2-3.8); Lymphocytes Percent Auto 8.8 % (20.5-60.0); Mean Corpuscular HGB Conc 32.4 g/dL (29.9-35.2); Mean Corpuscular Hemoglobin 31.2 pg (26.7-34.0); Mean Corpuscular Volume 96.2 fL (81.0-99.0); Mean Platelet Volume 10.7 fL (9.5-13.5); Monocytes Absolute Auto 0.8 10^3/uL (0.3-0.8); Monocytes Percent Auto 8.8 % (1.7-12.0); Neutrophils Percent Auto 81.2 % (43.0-75.0); Platelet Count 261 10^3/uL (150-450); Red Blood Count 3.72 10^6/uL (4.20-5.40); White Blood Count 8.6 10^3/uL (4.0-11.0)
[2024-12-08 11:44] LABS: Estimated Average Glucose 105 mg/dL; Glycohemoglobin A1C 5.3 % (4.5-6.2)
[2024-12-08 11:56] LABS: Alanine Aminotransferase 30 U/L (14-59); Albumin Level 3.8 g/dL (3.4-5.0); Alkaline Phosphatase 119 U/L (46-116); Anion Gap 11.9; Aspartate Amino Transferase 26 U/L (15-37); BUN Creatinine Ratio 25.6; Bilirubin Total 0.6 mg/dL (0.2-1.0); Calcium 11.6 mg/dL (8.5-10.1); Carbon Dioxide 26.5 mmol/L (21.0-32.0); Chloride 104 mmol/L (98-107); Chol HDL Ratio 1.5; Cholesterol 110 mg/dL (<=200); Estimated GFR (African America 38 (>=60 mL/min/1.73m^2); Estimated GFR (Non-African Ame 31 (>=60 mL/min/1.73m^2); Free T3 2.57 pg/mL (2.18-3.98); Globulin 3.9 g/dL; Glucose 107 mg/dL (74-106); HDL Cholesterol 75 mg/dL (40-60); Potassium 4.4 mmol/L (3.5-5.1); Sodium 138 mmol/L (136-145); Thyroid Stimulating Hormone 2.432 uIU/mL (0.358-3.740); Total Protein 7.7 g/dL (6.4-8.2); Triglycerides 49 mg/dL (<=150); VLDL CHOLESTEROL 9.8 mg/dL
== END 2024-12-08 10:38 | disposition home or self-care (01) ==
LOC: LAB 10:39
PROVIDERS: PCP Family Medicine; Visit Provider Family Medicine
DX: I27.20 Pulmonary hypertension, unspecified (principal); I48.20 Chronic atrial fibrillation, unspecified; I50.41 Acute combined systolic (congestive) and diastolic (congestive) heart failure; J20.9 Acute bronchitis, unspecified; E78.5 Hyperlipidemia, unspecified; R73.09 Other abnormal glucose; D64.9 Anemia, unspecified
CPT/HCPCS: 36415; 80053; 80061; 83036; 83540; 84436; 84443; 84481; 85025

== ENCOUNTER 2024-12-30 08:40 | Outpatient (OUT) | payer MEDICARE, SELFPAY ==
--- NOTE | 2024-12-30 08:42 | CT_ITS ---
The [address] [address] Patient Name: LIZABETH MONTANEZ MRN: [id number] date: 1945 Sex: F Assigned Patient Location: CT Current Patient Location: CT Accession/Order Number: [id number] Exam Date: 12/30/2024 09:20 Report Date: 12/30/2024 09:26 At the request of: ISAK RAYO MD Procedure: CT knee RT wo con CT RIGHT KNEE WITHOUT CONTRAST WITH 3-D RECONSTRUCTIONS CLINICAL DATA: Chronic right knee pain and instability. History of knee replacement one year ago. COMPARISON: Plain films 07/23/2024 Spiral axial unenhanced images were obtained through the right knee. Sagittal, coronal and 3-D volume rendered reconstructions were reviewed. This CT exam was performed using one or more following dose reduction techniques: Automated exposure control, adjustment of the mA and/or kV according to patient size, or use of iterative reconstruction technique. Patient has a right knee replacement. There is associated streak artifact which limits evaluation. As visualized, the hardware appears intact and in appropriate position. There are no obvious findings suspicious for loosening of the hardware. No acute fractures or dislocation are noted. There is a small amount of fluid within the suprapatellar bursa. There is diffuse subcutaneous edema. There is a surgical scar at the anterior aspect of the knee. There is atherosclerotic plaque at the popliteal artery and its branches. CT/CT knee RT wo con IMPRESSION: KNEE REPLACEMENT, WITHOUT OBVIOUS COMPLICATION WITHIN LIMITS OF ASSOCIATED STREAK ARTIFACT. NO DEFINITE ACUTE BONY FINDINGS. Impression dictated by: Lizabeth Garcia M.D.12/30/2024 9:26 AM Dictation Location: [place] [address] Electronically authenticated by: [id number] Y Date: 12/30/2024 09:26
== END 2024-12-30 08:41 | disposition home or self-care (01) ==
LOC: CT 08:40
PROVIDERS: PCP Family Medicine; Visit Provider Family Medicine
DX: M17.11 Unilateral primary osteoarthritis, right knee (principal); Z96.651 Presence of right artificial knee joint
CPT/HCPCS: 73700

== ENCOUNTER 2025-01-03 11:38 | Emergency (ER) | payer MEDICARE, SELFPAY ==
[2025-01-03 11:38] VITALS: BP 172/94; PULSE 64; TEMP 36.4; O2SAT 97; BMI 31.5
--- OUTSIDE RECORDS SUMMARY | 2025-01-03 11:53 | XMS_ITS | CCD ---
Author Organization [facility] [place] Care Team Providers Care Medical Service Representative Name Role Phone PHYSICIAN, DEFAULT Unavailable Unavailable [...] Penicillins; Translations: [PENICILLINS] Drug allergy (disorder) 08-10-2009 [facility] Repository Problems Active Problems Problem Classification Problem Date Documented Date Episodic/Chronic Chronic kidney disease (2 sources) Chronic kidney disease, stage 1; Translations: [Chronic kidney disease, unspecified] Onset: 12-07-2022 Chronic Congestive heart failure; nonhypertensive (1 source) Unspecified diastolic (congestive) heart failure; Translations: [UNSPECIFIED DIASTOLIC HEART FAILURE] Onset: 10-31-2022 Chronic Coronary atherosclerosis and other heart disease (1 source) Atherosclerotic heart disease of [place] coronary artery without angina pectoris; Translations: [ASHD NEZ PERCE CA W/O ANGINA PECTORIS] Onset: 10-31-2022 Chronic [...] Range Facility Office Visiton 11-17-2024 Follow-up visit [id number] EduardoMignonabbie Leiva 1945 Provider Department Center 11/17/2024 YENI GARCIA Family History Problem Relation Age of Onset Other Mother Other Mother Heart attack Father's Sister Family Status - Relation Status Age at Mother Father's Sister Level of Service:97720 MO OFFICE/OUTPATIENT ESTABLISHED LOW MDM 20 MIN Normal [facility] Follow-Upon 08-13-2024 Follow-Up [id number] Mignon Montanez 1945 Provider Department Center 08/13/2024 293-MYNOR GALLEGOS MP ORTHO MPORTHO Family History Problem Relation Age of Onset Other Mother Other Mother Heart attack Father's Sister Family Status - Relation Status Age at Mother Father's Sister Level of Service:19313 MO OFFICE/OUTPATIENT ESTABLISHED LOW MDM 20 MIN () Reason for Visit and Comments: Pain [136] - R TKA FOLLOW UP, C/O HAVING PROBLEMS GETTING UP FROM SITTING POSITION Follow-up [072728] - R TKA FOLLOW UP, C/O HAVING PROBLEMS GETTING UP FROM SITTING POSITION Normal [facility] Office Visiton 05-15-2024 Follow-up visit [id number] Mignon Montanez 1945 Date Provider Department Center 05/15/2024 YENI GARCIA Family History Problem Relation Age of Onset Other Mother Other Mother Heart attack Father's Sister Family Status - Relation Status Age at Mother Father's Sister Level of Service:69182 MO OFFICE/OUTPATIENT ESTABLISHED LOW MDM 20 MIN Reason for Visit and Comments: Follow-up [864830] - Follow up Echo Concerns: No cardiac symptoms/concerns [facility] 36on 04-01-2024 36 Regarding echo performed on 03/27/2024: JESSICA Gonzalez MA Echo about the same as previous- with noted mild to mod mitral regurg and mod Aortic valve regurg and normal LV function If she notes worsening SOB, palpitations, weight gain/water retention she needs to call office Spoke with patient and made here aware. She verbalized understanding. Normal [facility] Office Visiton 03-12-2024 Follow-up visit [id number] Mignon Montanez cinthia E 1945 F Date Provider Department Center 03/12/2024 [facility]AL [facility] Family History Problem Relation Age of Onset Other Mother Other Mother Heart attack Father's Sister Family Status - Relation Status Age at Mother Father's Sister Level of Service:65357 MO POSTOP FOLLOW UP VISIT RELATED TO ORIGINAL PX Reason for Visit and Comments: Pain [136] - R tka follow up [facility] Office Visiton 02-06-2024 Follow-up visit [id number] Mignon Montanez cinthia E 1945 F Date Provider Department Center 02/06/2024 293MYNOR PIERCE MP ORTHO MPORTHO Family History Problem Relation Age of Onset Other Mother Other Mother Heart attack Father's Sister Family Status - Relation Status Age at Mother Father's Sister Level of Service:16227 MO POSTOP FOLLOW UP VISIT RELATED TO ORIGINAL PX (GC) Reason for Visit and Comments: Pain [136] - 1st post op R TKA Post-op [483] - 1st post op R TKA [facility] 36on 02-03-2024 36 I spoke to the patie nt to see how she is doing after her recent surgery. Ms Montanez stated she is doing well and her pain is manageable with medication. She is taking all the medication she was prescribed at discharge. She denies any redness, drainage or major swelling. She has been working with [facility] physical therapy. She has a post op appointment on February 05 at 8. She had no questions or concerns. [facility] 36 [facility] RN Karmen FRANCIS NOTIFIED NOT TO REMOVE THE DRESSING, HE V/U//[facility] 36on 01-31-2024 36 Anel ISRAEL notified t he nurse of dressing change instructions. I attempted to call the patient to complete a dishcarge follow up call and relay dressing orders but patient;s phone was busy. [facility] 36 Ortega, from [facility] called requesting clarification on patients wound vac instructions. They would like to know if they should remove the vac before her follow up visit. Discharge summary says :Dressing Removal: Do not remove before follow-up visit Follow up visit scheduled for 02/12. Please call with instructions on care. Number to return call [phone]. [facility] BASIC METABOLIC PANELon 05- Anion gap [Moles/Vol] 7 mmol/L Normal 7-20 [facility] Comment on above: Performed By: #### L [id number] ####[facility] (BEAKER)[address] [place] [address] Calcium [Mass/Vol] 10.8 mg/dL High 8.6-10.3 [facility] Comment on above: Performed By: #### L [id number] ####[facility] (BEAKER)[address] [place] [address] Chloride [Moles/Vol] 105 mmol/L Normal 98-107 [facility] Comment on above: Performed By: #### L [id number] ####[facility] ([facility]AKER)[address] [place] [address] CO2 [Moles/Vol] 27 mmol/L Normal 21-31 [facility] Comment on above: Performed By: #### L [id number] ####[facility] (BEAKER)[address] [place] [address] Creatinine [Mass/Vol] 1.45 mg/dL High 0.60-1.20 [facility] Comment on above: Performed By: #### L [id number] ####[facility] [place] [address] GLOMERULAR FILTRATION RATE ML/MIN/1.73 SQ M.PREDICTED 37.2 mL/min/1.73m*2 Low >60.0 [facility] Comment on above: Result Comment: [facility]???s estimated glomerular filtration rate (eGFR) will no [...] of individuals. Performed By: #### L [id number] ####[facility] ([facility])[address] [place] [address] Glucose [Mass/Vol] 88 mg/dL Normal 70-100 [facility] Comment on above: Performed By: #### L [id number] ####[facility] ([facility])[address] [place] [address] Potassium [Moles/Vol] 4.4 mmol/L Normal 3.5-5.1 [facility] Comment on above: Performed By: #### L [id number] ####[facility] ([facility])[address] [place] [address] Sodium [Moles/Vol] 135 mmol/L Low 136-145 [facility] Comment on above: Performed By: #### L [id number] ####[facility] ([facility])[address] [place] [address] Urea nitrogen [Mass/Vol] 45 mg/dL High 7-25 [facility] Comment on above: Performed By: #### L [id number] ####[facility] ([facility])[address] [place] [address] UREA NITROGEN/CREATININE (MASS RATIO) IN SER/PLAS 31.0 Normal [facility] Comment on above: Performed By: #### L [id number] ####[facility] ([facility])[address] [place] [address] CBC WITH AUTO DIFFERENTIALon 01-30-2024 Basophils (Bld) [#/Vol] 0.03 10*3/uL Normal 0.00-0.20 [facility] Comment on above: Performed By: #### L [id number] #### [facility] ([facility]) [address] [place] [address] Basophils/100 WBC (Bld) 0.3 % Normal 0.0-1.0 [facility] Comment on above: Performed By: #### L [id number] #### [facility] ([facility]) [address] [place] [address] Eosinophils (Bld) [#/Vol] 0.19 10*3/uL Normal 0.00-0.50 [facility] Comment on above: Performed By: #### L [id number] #### [facility] ([facility]) [address] [place] [address] Eosinophils/100 WBC (Bld) 2.1 % Normal 0.0-6.0 [facility] Comment on above: Performed By: #### L [id number] #### [facility] ([facility]) [address] [place] [address] Erythrocyte distribution width (RBC) [Ratio] 13.0 % Normal 11.5-15.0 [facility] Comment on above: Performed By: #### L [id number] #### [facility] ([facility]) [address] [place] [address] ERYTHROCYTE MEAN CORPUSCULAR HEMOGLOBIN CONCENTRATION (G/DL) BY AUTOMATED 31.5 g/dL Low 32.0-35.0 [facility] Comment on above: Performed By: #### L [id number] #### [facility] [address] [place] [address] Hematocrit (Bld) [Volume fraction] 24.8 % Low 36.0-48.0 [facility] Comment on above: Performed By: #### L [id number] #### [facility] (BEAKER) [address] [place] [address] Hemoglobin (Bld) [Mass/Vol] 7.8 g/dL Low 12.0-15.0 [facility] Comment on above: Performed By: #### L [id number] #### [facility] ([facility]) [address] [place] [address] Immature granulocytes (Bld) [#/Vol] 0.09 10*3/uL Normal 0.00-0.20 [facility] Comment on above: Performed By: #### L [id number] #### [facility] ([facility]) [address] [place] [address] Immature granulocytes/100 WBC (Bld) 1.0 % Normal 0.0-1.0 [facility] Comment on above: Performed By: #### L [id number] #### [facility] ([facility] [address] [place] [address] Lymphocytes (Bld) [#/Vol] 0.68 10*3/uL Low 1.20-4.00 [facility] Comment on above: Performed By: #### L [id number] #### [facility] [address] [place] [address] Lymphocytes/100 WBC (Bld) 7.5 % Low 20.0-45.0 [facility] Comment on above: Performed By: #### L [id number] #### [facility] [address] [place] [address] MCH (RBC) [Entitic mass] 31.3 pg Normal 27.0-33.0 [facility] Comment on above: Performed By: #### L [id number] #### [facility] (BEAKER) [address] [place] [address] MCV (RBC) [Entitic vol] 99.6 fL High 82.0-98.0 [facility] Comment on above: Performed By: #### L [id number] #### [facility] [address] [place] [address] Monocytes (Bld) [#/Vol] 1.15 10*3/uL High 0.10-1.00 [facility] Comment on above: Performed By: #### L [id number] #### [facility] ([facility]) [address] [place] [address] Monocytes/100 WBC (Bld) 12.6 % High 5.0-12.0 [facility] Comment on above: Performed By: #### L [id number] #### [facility] ([facility]) [address] [place] [address] Neutrophils (Bld) [#/Vol] 6.97 10*3/uL Normal 1.60-7.60 [facility] Comment on above: Performed By: #### L [id number] #### [facility] ([facility]) [address] [place] [address] Neutrophils/100 WBC (Bld) 76.5 % High 40.0-72.0 [facility] Comment on above: Performed By: #### L [id number] #### [facility] ([facility]) [address] [place] [address] NRBC (PER 100 WBCS) BY AUTOMATED COUNT 0.0 % Normal 0 [facility] Comment on above: Performed By: #### L [id number] #### [facility] ([facility]) [address] [place] [address] PLATELETS (10*3/UL) IN BLOOD AUTOMATED COUNT 245 10*3/uL Normal 150-400 [facility] Comment on above: Performed By: #### L [id number] #### [facility] ([facility]) [address] [place] [address] RBC (Bld) [#/Vol] 2.49 10*6/uL Low 3.80-5.00 [facility] Comment on above: Performed By: #### L [id number] #### [facility] (BEAKER) [address] [place] [address] WBC (Bld) [#/Vol] 9.11 10*3/uL Normal 4.00-10.60 [facility] Comment on above: Performed By: #### L [id number] #### [facility] (BEAKER) [address] [place] [address] DSon 01-30-2024 DS --- Attestation signed by Mynor Gallegos MD at 02/20/2024 8:07 AM I did not personally examine the patient. I discussed the case with the resident/fellow Hailee Ortez MD Teaching Physician's Revisions: none Orthopaedic Discharge Summary Patient ID: Lizabeth Montanez [id number] 78 y.o. 1945 Admit date: 01/24/2024 Discharge date and time: 01/30/2024 3:32 PM Admitting Physician: Mynor Gallegos MD Discharge Physician: Mynor Gallegos MD Admission Diagnoses: Primary osteoarthritis of right knee [M17.11] Arthritis of right knee [M17.11] Discharge Diagnoses: Primary osteoarthritis of right knee [M17.11] Arthritis of right knee [M17.11] Surgical procedure: TOTAL KNEE ARTHROPLASTY 25132 - [place] ARTHRP KNE CONDYLE&PLATU MEDIAL&LAT COMPARTMENTS Disposition: Home [...] Medications These medications were sent to [facility] - [place], [place] - [address] [place] [address] [place] [address] [facility] [place] [address], [facility] [address] allopurinol 100 mg tablet apixaban 2.5 mg [...] Ruslan Ortez MD in 10-14 days at [facility] [phone] Hospital Course: Lizabeth Montanez was admitted on 01/24/2024 and underwent the aforementioned procedure. Post-operatively, she had adequate pain control and physical therapy to be able to be discharged from the hospital. DVT prophylaxis consisted of Eliquis 2.5 mg BID for 30 days . Signed: Ruslan Ortez MD 7:38 AM 02/10/2024 Normal [facility] 30on 01-29-2024 30 The patient is Moderately [...] by Chrystal Thao RN Outcome: Progressing Normal [facility] 30 Daily Case Managemen t Update Multidisciplinary rounds have been completed. Barriers to Discharge: Pending placement. Received late notification that patients insurance has denied IPR placement. IPR physician completed P2P on behalf of patient and the denial was upheld. [employer] and SW will be speaking with the patient shortly regarding SNF vs home discharge goal. Diet: Dietary Orders (From admission, onward) Start Ordered 01/29/24 0843 Special Kitchen Request Once Comments: Please send spanish yogurt (peach), grits, honey and milk, latvian muffin. Decaf coffee with cream, diet coke. Thanks! 01/29/24 0844 01/24/24 1619 Regular Diet Diet effective now Question: Room Service? Answer: Yes 01/24/24 1618 Physician Expected Discharge Date: 01/25/2024 Discharge Delays: PT Six Click Score: 18 OT Six Click Score: 16 PT Recommendations: Inpatient rehab facility placement OT Recommendations: [facility] facility placement Does patient understand post acute [...] Answer: postop musculoskeletal care 01/24/24 0743 Normal [facility] BASIC METABOLIC PANELon 05-0 Anion gap [Moles/Vol] 10 mmol/L Normal 7-20 [facility] Comment on above: Performed By: #### L [id number] ####[facility] (BEAKER)[address] [place] [address] Calcium [Mass/Vol] 10.4 mg/dL High 8.6-10.3 [facility] Comment on above: Performed By: #### L [id number] ####[facility] (BEAKER)[address] [place] [address] Chloride [Moles/Vol] 106 mmol/L Normal 98-107 [facility] Comment on above: Performed By: #### L [id number] ####[facility] (BEAKER)[address] [place] [address] CO2 [Moles/Vol] 24 mmol/L Normal 21-31 [facility] Comment on above: Performed By: #### L [id number] ####[facility] (BEAKER)[address] [place] [address] Creatinine [Mass/Vol] 1.52 mg/dL High 0.60-1.20 [facility] Comment on above: Performed By: #### L [id number] ####[facility] ([facility])[address] [place] [address] GLOMERULAR FILTRATION RATE ML/MIN/1.73 SQ M.PREDICTED 35.1 mL/min/1.73m*2 Low >60.0 [facility] Comment on above: Result Comment: [facility]???s estimated glomerular filtration rate (eGFR) will no [...] of individuals. Performed By: #### L [id number] ####[facility] ([facility])[address] [place] [address] Glucose [Mass/Vol] 82 mg/dL Normal 70-100 [facility] Comment on above: Performed By: #### L [id number] ####[facility] ([facility])[address] [place] [address] Potassium [Moles/Vol] 4.4 mmol/L Normal 3.5-5.1 [facility] Comment on above: Performed By: #### L [id number] ####[facility] ([facility])[address] [place] [address] Sodium [Moles/Vol] 136 mmol/L Normal 136-145 [facility] Comment on above: Performed By: #### L [id number] ####[facility] ([facility])[address] [place] [address] Urea nitrogen [Mass/Vol] 46 mg/dL High 7-25 [facility] Comment on above: Performed By: #### L [id number] ####[facility] [place] [address] UREA NITROGEN/CREATININE (MASS RATIO) IN SER/PLAS 30.3 Normal [facility] Comment on above: Performed By: #### L [id number] ####[facility] ([facility])[address] [place] [address] CBC WITH AUTO DIFFERENTIALon 01-29-2024 Basophils (Bld) [#/Vol] 0.02 10*3/uL Normal 0.00-0.20 [facility] Comment on above: Performed By: #### L [id number] #### [facility] ([facility]) [address] [place] [address] Basophils/100 WBC (Bld) 0.2 % Normal 0.0-1.0 [facility] Comment on above: Performed By: #### L [id number] #### [facility] ([facility]) [address] [place] [address] Eosinophils (Bld) [#/Vol] 0.10 10*3/uL Normal 0.00-0.50 [facility] Comment on above: Performed By: #### L [id number] #### [facility] ([facility]) [address] [place] [address] Eosinophils/100 WBC (Bld) 1.2 % Normal 0.0-6.0 [facility] Comment on above: Performed By: #### L [id number] #### [facility] ([facility]) [address] [place] [address] Erythrocyte distribution width (RBC) [Ratio] 13.2 % Normal 11.5-15.0 [facility] Comment on above: Performed By: #### L [id number] #### [facility] ([facility]) [address] [place] [address] ERYTHROCYTE MEAN CORPUSCULAR HEMOGLOBIN CONCENTRATION (G/DL) BY AUTOMATED 32.4 g/dL Normal 32.0-35.0 [facility] Comment on above: Performed By: #### L [id number] #### [facility] (BEAKER) [address] [place] [address] Hematocrit (Bld) [Volume fraction] 24.1 % Low 36.0-48.0 [facility] Comment on above: Performed By: #### L [id number] #### [facility] (BEAKER) [address] [place] [address] Hemoglobin (Bld) [Mass/Vol] 7.8 g/dL Low 12.0-15.0 [facility] Comment on above: Performed By: #### L [id number] #### [facility] (BEAKER) [address] [place] [address] Immature granulocytes (Bld) [#/Vol] 0.07 10*3/uL Normal 0.00-0.20 [facility] Comment on above: Performed By: #### L [id number] #### [facility] ([facility]) [address] [place] [address] Immature granulocytes/100 WBC (Bld) 0.8 % Normal 0.0-1.0 [facility] Comment on above: Performed By: #### L [id number] #### [facility] (BEAKER) [address] [place] [address] Lymphocytes (Bld) [#/Vol] 0.77 10*3/uL Low 1.20-4.00 [facility] Comment on above: Performed By: #### L [id number] #### [facility] (BEAKER) [address] [place] [address] Lymphocytes/100 WBC (Bld) 8.9 % Low 20.0-45.0 [facility] Comment on above: Performed By: #### L [id number] #### [facility] (BEAKER) [address] [place] [address] MCH (RBC) [Entitic mass] 32.0 pg Normal 27.0-33.0 [facility] Comment on above: Performed By: #### L [id number] #### [facility] (BEAKER) [address] [place] [address] MCV (RBC) [Entitic vol] 98.8 fL High 82.0-98.0 [facility] Comment on above: Performed By: #### L [id number] #### [facility] [address] [place] [address] Monocytes (Bld) [#/Vol] 1.14 10*3/uL High 0.10-1.00 [facility] Comment on above: Performed By: #### L [id number] #### [facility] ([facility]) [address] [place] [address] Monocytes/100 WBC (Bld) 13.2 % High 5.0-12.0 [facility] Comment on above: Performed By: #### L [id number] #### [facility] ([facility]) [address] [place] [address] Neutrophils (Bld) [#/Vol] 6.53 10*3/uL Normal 1.60-7.60 [facility] Comment on above: Performed By: #### L [id number] #### [facility] ([facility]) [address] [place] [address] Neutrophils/100 WBC (Bld) 75.7 % High 40.0-72.0 [facility] Comment on above: Performed By: #### L [id number] #### [facility] ([facility]) [address] [place] [address] NRBC (PER 100 WBCS) BY AUTOMATED COUNT 0.0 % Normal 0 [facility] Comment on above: Performed By: #### L [id number] #### [facility] ([facility]) [address] [place] [address] PLATELETS (10*3/UL) IN BLOOD AUTOMATED COUNT 218 10*3/uL Normal 150-400 [facility] Comment on above: Performed By: #### L [id number] #### [facility] [address] [place] [address] RBC (Bld) [#/Vol] 2.44 10*6/uL Low 3.80-5.00 [facility] Comment on above: Performed By: #### L [id number] #### [facility] [address] [place] [address] WBC (Bld) [#/Vol] 8.63 10*3/uL Normal 4.00-10.60 [facility] Comment on above: Performed By: #### L [id number] #### [facility] ([facility]) [address] [place] [address] MAGNESIUMon 01-29-2024 Magnesium [Mass/Vol] 1.7 mg/dL Low 1.9-2.7 [facility] Comment on above: Performed By: #### L [id number] ####[facility] ([facility])[address] [place] [address] 30on 01-28-2024 30 The patient is Moderately [...] and maintained or improved Outcome: Progressing Normal [facility] 30 Daily Case Managemen t Update Multidisciplinary rounds have been completed. Barriers to Discharge: Pending medical clearance for discharge. POD #4. Awaiting medical readiness for hospital discharge. [facility] has submitted for insurance authorization. Diet: Dietary Orders (From admission, onward) Start Ordered 01/24/24 1619 Regular Diet Diet effective now Question: Room Service? Answer: Yes 01/24/24 1618 Physician Expected Discharge Date: 01/25/2024 Discharge Delays: PT Six Click Score: 17 OT Six Click Score: 17 PT Recommendations: Inpatient rehab facility placement OT Recommendations: [facility] facility placement Does patient understand post acute [...] Answer: postop musculoskeletal care 01/24/24 0743 Normal [facility] BASIC METABOLIC PANELon 04-3 0 Anion gap [Moles/Vol] 10 mmol/L Normal 7-20 [facility] Comment on above: Performed By: #### L [id number] #### [facility] (BEAKER) [address] [place], [place] [address] Calcium [Mass/Vol] 10.3 mg/dL Normal 8.6-10.3 [facility] Comment on above: Performed By: #### L [id number] #### [facility] ([facility]) [address] [place] [address] Chloride [Moles/Vol] 104 mmol/L Normal 98-107 [facility] Comment on above: Performed By: #### L [id number] #### [facility] ([facility]) [address] [place] [address] CO2 [Moles/Vol] 25 mmol/L Normal 21-31 [facility] Comment on above: Performed By: #### L [id number] #### [facility] ([facility]) [address] [place] [address] Creatinine [Mass/Vol] 1.52 mg/dL High 0.60-1.20 [facility] Comment on above: Performed By: #### L [id number] #### [facility] ([facility]) [address] [place] [address] GLOMERULAR FILTRATION RATE ML/MIN/1.73 SQ M.PREDICTED 35.1 mL/min/1.73m*2 Low >60.0 [facility] Comment on above: Result Comment: [facility]???s estimated glomerular filtration rate (eGFR) will no [...] individuals. Performed By: #### L [id number] #### [facility] ([facility]) [address] [place] [address] Glucose [Mass/Vol] 90 mg/dL Normal 70-100 [facility] Comment on above: Performed By: #### L [id number] #### [facility] ([facility]) [address] [place] [address] Potassium [Moles/Vol] 4.6 mmol/L Normal 3.5-5.1 [facility] Comment on above: Performed By: #### L [id number] #### [facility] ([facility]) [address] [place] [address] Sodium [Moles/Vol] 134 mmol/L Low 136-145 [facility] Comment on above: Performed By: #### L [id number] #### [facility] ([facility]) [address] [place] [address] Urea nitrogen [Mass/Vol] 49 mg/dL High 7-25 [facility] Comment on above: Performed By: #### L [id number] #### [facility] ([facility]) [address] [place] [address] UREA NITROGEN/CREATININE (MASS RATIO) IN SER/PLAS 32.2 Normal [facility] Comment on above: Performed By: #### L [id number] #### [facility] ([facility]) [address] [place] [address] CBC WITH AUTO DIFFERENTIALon 01-28-2024 Basophils (Bld) [#/Vol] 0.02 10*3/uL Normal 0.00-0.20 [facility] Comment on above: Performed By: #### L [id number] #### [facility] ([facility]) [address] [place] [address] Basophils/100 WBC (Bld) 0.2 % Normal 0.0-1.0 [facility] Comment on above: Performed By: #### L [id number] #### [facility] ([facility]) [address] [place] [address] Eosinophils (Bld) [#/Vol] 0.05 10*3/uL Normal 0.00-0.50 [facility] Comment on above: Performed By: #### L [id number] #### [facility] ([facility]) [address] [place] [address] Eosinophils/100 WBC (Bld) 0.5 % Normal 0.0-6.0 [facility] Comment on above: Performed By: #### L [id number] #### [facility] ([facility]) [address] [place] [address] Erythrocyte distribution width (RBC) [Ratio] 13.2 % Normal 11.5-15.0 [facility] Comment on above: Performed By: #### L [id number] #### [facility] ([facility]) [address] [place] [address] ERYTHROCYTE MEAN CORPUSCULAR HEMOGLOBIN CONCENTRATION (G/DL) BY AUTOMATED 33.2 g/dL Normal 32.0-35.0 [facility] Comment on above: Performed By: #### L [id number] #### [facility] ([facility]) [address] [place] [address] Hematocrit (Bld) [Volume fraction] 25.3 % Low 36.0-48.0 [facility] Comment on above: Performed By: #### L [id number] #### [facility] ([facility]) [address] [place] [address] Hemoglobin (Bld) [Mass/Vol] 8.4 g/dL Low 12.0-15.0 [facility] Comment on above: Performed By: #### L [id number] #### [facility] ([facility]) [address] [place] [address] Immature granulocytes (Bld) [#/Vol] 0.07 10*3/uL Normal 0.00-0.20 [facility] Comment on above: Performed By: #### L [id number] #### [facility] [address] [facility] [place] [address] Immature granulocytes/100 WBC (Bld) 0.7 % Normal 0.0-1.0 [facility] Comment on above: Performed By: #### L [id number] #### [facility] ([facility]) [address] [place] [address] Lymphocytes (Bld) [#/Vol] 0.67 10*3/uL Low 1.20-4.00 [facility] Comment on above: Performed By: #### L [id number] #### [facility] ([facility]) [address] [place] [address] Lymphocytes/100 WBC (Bld) 7.1 % Low 20.0-45.0 [facility] Comment on above: Performed By: #### L [id number] #### [facility] ([facility]) [address] [place] [address] MCH (RBC) [Entitic mass] 31.5 pg Normal 27.0-33.0 [facility] Comment on above: Performed By: #### L [id number] #### [facility] ([facility]) [address] [place] [address] MCV (RBC) [Entitic vol] 94.8 fL Normal 82.0-98.0 [facility] Comment on above: Performed By: #### L [id number] #### [facility] ([facility]) [address] [place] [address] Monocytes (Bld) [#/Vol] 1.18 10*3/uL High 0.10-1.00 [facility] Comment on above: Performed By: #### L [id number] #### [facility] ([facility]) [address] [place] [address] Monocytes/100 WBC (Bld) 12.5 % High 5.0-12.0 [facility] Comment on above: Performed By: #### L [id number] #### [facility] ([facility]) [address] [place] [address] Neutrophils (Bld) [#/Vol] 7.47 10*3/uL Normal 1.60-7.60 [facility] Comment on above: Performed By: #### L [id number] #### [facility] ([facility]) [address] [place] [address] Neutrophils/100 WBC (Bld) 79.0 % High 40.0-72.0 [facility] Comment on above: Performed By: #### L [id number] #### [facility] ([facility]) [address] [place] [address] NRBC (PER 100 WBCS) BY AUTOMATED COUNT 0.0 % Normal 0 [facility] Comment on above: Performed By: #### L [id number] #### [facility] ([facility]) [address] [place] [address] PLATELETS (10*3/UL) IN BLOOD AUTOMATED COUNT 197 10*3/uL Normal 150-400 [facility] Comment on above: Performed By: #### L [id number] #### [facility] ([facility]) [address] [place] [address] RBC (Bld) [#/Vol] 2.67 10*6/uL Low 3.80-5.00 [facility] Comment on above: Performed By: #### L [id number] #### [facility] ([facility]) [address] [place] [address] WBC (Bld) [#/Vol] 9.46 10*3/uL Normal 4.00-10.60 [facility] Comment on above: Performed By: #### L [id number] #### [facility] ([facility]) [address] [place] [address] 30on 01-27-2024 30 The patient is Moderately [...] and maintained or improved Outcome: Progressing Normal [facility] 30 Daily Case Managemen t Update Multidisciplinary rounds have been completed. Barriers to Discharge: Pending medical clearance for discharge. Medicine service was consulted for bradycardia. Medication adjustments have been made. Currently monitoring renal function, but will likely be medically ready for discharge soon. Patient is planning to go to [facility] when medically ready for discharge. [facility] has submitted for insurance pre-certification. Diet: [...] Answer: postop musculoskeletal care 01/24/24 0743 Normal [facility] BASIC METABOLIC PANELon - Anion gap [Moles/Vol] 10 mmol/L Normal 7-20 [facility] Comment on above: Performed By: #### L [id number] #### [facility] , Calcium [Mass/Vol] 10.1 mg/dL Normal 8.6-10.3 [facility] Comment on above: Performed By: #### L [id number] #### [facility] , Chloride [Moles/Vol] 106 mmol/L Normal 98-107 [facility] Comment on above: Performed By: #### L [id number] #### [facility] , CO2 [Moles/Vol] 24 mmol/L Normal 21-31 [facility] Comment on above: Performed By: #### L [id number] #### [facility] , Creatinine [Mass/Vol] 1.74 mg/dL High 0.60-1.20 [facility] Comment on above: Performed By: #### L [id number] #### [facility] , GLOMERULAR FILTRATION RATE ML/MIN/1.73 SQ M.PREDICTED 29.9 mL/min/1.73m*2 Low >60.0 [facility] Comment on above: Result Comment: [facility]???s estimated glomerular filtration rate (eGFR) will no [...] individuals. Performed By: #### L [id number] #### [facility] , Glucose [Mass/Vol] 87 mg/dL Normal 70-100 [facility] Comment on above: Performed By: #### L [id number] #### [facility] , Potassium [Moles/Vol] 4.4 mmol/L Normal 3.5-5.1 [facility] Comment on above: Performed By: #### L [id number] #### [facility] , Sodium [Moles/Vol] 136 mmol/L Normal 136-145 [facility] Comment on above: Performed By: #### L [id number] #### [facility] , Urea nitrogen [Mass/Vol] 58 mg/dL High 7-25 [facility] Comment on above: Performed By: #### L [id number] #### [facility] , UREA NITROGEN/CREATININE (MASS RATIO) IN SER/PLAS 33.3 Normal [facility] Comment on above: Performed By: #### L [id number] #### [facility] , CBC WITH AUTO DIFFERENTIALon 01-27-2024 Basophils (Bld) [#/Vol] 0.01 10*3/uL Normal 0.00-0.20 [facility] Comment on above: Performed By: #### L [id number] #### [facility] [address] [place] [address] Basophils/100 WBC (Bld) 0.1 % Normal 0.0-1.0 [facility] Comment on above: Performed By: #### L [id number] #### [facility] ([facility]) [address] [place] [address] Eosinophils (Bld) [#/Vol] 0.07 10*3/uL Normal 0.00-0.50 [facility] Comment on above: Performed By: #### L [id number] #### [facility] [address] [place] [address] Eosinophils/100 WBC (Bld) 0.8 % Normal 0.0-6.0 [facility] Comment on above: Performed By: #### L [id number] #### [facility] ([facility]) [address] [place] [place] [address] Erythrocyte distribution width (RBC) [Ratio] 13.4 % Normal 11.5-15.0 [facility] Comment on above: Performed By: #### L [id number] #### [facility] [address] [place] [place] [address] ERYTHROCYTE MEAN CORPUSCULAR HEMOGLOBIN CONCENTRATION (G/DL) BY AUTOMATED 32.4 g/dL Normal 32.0-35.0 [facility] Comment on above: Performed By: #### L [id number] #### [facility] ([facility]) [address] [place] [place] [address] Hematocrit (Bld) [Volume fraction] 25.3 % Low 36.0-48.0 [facility] Comment on above: Performed By: #### L [id number] #### [facility] [address] [place] [address] Hemoglobin (Bld) [Mass/Vol] 8.2 g/dL Low 12.0-15.0 [facility] Comment on above: Performed By: #### L [id number] #### [facility] ([facility]) [address] [place] [address] Immature granulocytes (Bld) [#/Vol] 0.06 10*3/uL Normal 0.00-0.20 [facility] Comment on above: Performed By: #### L [id number] #### [facility] ([facility]) [address] [facility] [place] [address] Immature granulocytes/100 WBC (Bld) 0.7 % Normal 0.0-1.0 [facility] Comment on above: Performed By: #### L [id number] #### [facility] ([facility]) [address] [place] [address] Lymphocytes (Bld) [#/Vol] 0.68 10*3/uL Low 1.20-4.00 [facility] Comment on above: Performed By: #### L [id number] #### [facility] ([facility]) [address] [place] [address] Lymphocytes/100 WBC (Bld) 7.5 % Low 20.0-45.0 [facility] Comment on above: Performed By: #### L [id number] #### [facility] ([facility]) [address] [place] [address] MCH (RBC) [Entitic mass] 31.4 pg Normal 27.0-33.0 [facility] Comment on above: Performed By: #### L [id number] #### [facility] [address] [facility] [place] [address] MCV (RBC) [Entitic vol] 96.9 fL Normal 82.0-98.0 [facility] Comment on above: Performed By: #### L [id number] #### [facility] ([facility]) [address] [place] [address] Monocytes (Bld) [#/Vol] 1.20 10*3/uL High 0.10-1.00 [facility] Comment on above: Performed By: #### L [id number] #### [facility] ([facility]) [address] [place] [address] Monocytes/100 WBC (Bld) 13.2 % High 5.0-12.0 [facility] Comment on above: Performed By: #### L [id number] #### [facility] ([facility]) [address] [place] [address] Neutrophils (Bld) [#/Vol] 7.06 10*3/uL Normal 1.60-7.60 [facility] Comment on above: Performed By: #### L [id number] #### [facility] ([facility]) [address] [place] [address] Neutrophils/100 WBC (Bld) 77.7 % High 40.0-72.0 [facility] Comment on above: Performed By: #### L [id number] #### [facility] ([facility]) [address] [place] [address] NRBC (PER 100 WBCS) BY AUTOMATED COUNT 0.0 % Normal 0 [facility] Comment on above: Performed By: #### L [id number] #### [facility] [address] [place] [address] PLATELETS (10*3/UL) IN BLOOD AUTOMATED COUNT 196 10*3/uL Normal 150-400 [facility] Comment on above: Performed By: #### L [id number] #### [facility] ([facility]) [address] [place] [address] RBC (Bld) [#/Vol] 2.61 10*6/uL Low 3.80-5.00 [facility] Comment on above: Performed By: #### L [id number] #### [facility] ([facility]) [address] [place] [address] WBC (Bld) [#/Vol] 9.08 10*3/uL Normal 4.00-10.60 [facility] Comment on above: Performed By: #### L [id number] #### [facility] ([facility]) [address] [place] [address] CKon 01-27-2024 CREATINE KINASE (U/L) IN SER/PLAS 34.0 U/L Normal 30.0-223.0 [facility] Comment on above: Performed By: #### L [id number] ####[facility] ([facility])[address] [place] [address] MAGNESIUMon 01-27-2024 Magnesium [Mass/Vol] 2.0 mg/dL Normal 1.9-2.7 [facility] Comment on above: Performed By: #### L [id number] #### [facility] ([facility]) [address] [place] [address] PHOSPHORUSon 01-27-2024 Magnesium [Mass/Vol] 3.1 mg/dL Normal 2.5-5.0 [facility] Comment on above: Performed By: #### L [id number] ####[facility] ([facility])[address] [place] [address] URIC ACIDon 01-27-2024 Magnesium [Mass/Vol] 7.6 mg/dL High 2.3-6.6 [facility] Comment on above: Performed By: #### L [id number] #### [facility] ([facility]) [address] [place] [address] VITAMIN D 25 HYDROXYon 01-26 CALCIDIOL (25 [place] VITAMIN D3) (NG/ML) IN SER/PLAS 34.6 ng/mL Normal 30.0-80.0 [facility] Comment on above: Result Comment: >80. 0 Toxicity possible Performed By: #### L [id number] ####[facility] ([facility])[address] [place] [address] BASIC METABOLIC PANELon 12-30 Anion gap [Moles/Vol] 11 mmol/L Normal 7-20 [facility] Comment on above: Performed By: #### L [id number] #### [facility] ([facility]) [address] [facility] [place] [address] Calcium [Mass/Vol] 10.0 mg/dL Normal 8.6-10.3 [facility] Comment on above: Performed By: #### L [id number] #### [facility] ([facility]) [address] [place] [address] Chloride [Moles/Vol] 104 mmol/L Normal 98-107 [facility] Comment on above: Performed By: #### L [id number] #### [facility] ([facility]) [address] [place] [address] CO2 [Moles/Vol] 24 mmol/L Normal 21-31 [facility] Comment on above: Performed By: #### L [id number] #### [facility] ([facility]) [address] [place] [address] Creatinine [Mass/Vol] 1.97 mg/dL High 0.60-1.20 [facility] Comment on above: Performed By: #### L [id number] #### [facility] ([facility]) [address] [place] [address] GLOMERULAR FILTRATION RATE ML/MIN/1.73 SQ M.PREDICTED 25.7 mL/min/1.73m*2 Low >60.0 [facility] Comment on above: Result Comment: [facility]???s estimated glomerular filtration rate (eGFR) will no [...] group of individuals. Performed By: #### L [id number] #### [facility] ([facility]) [address] [place] [address] Glucose [Mass/Vol] 127 mg/dL High 70-100 [facility] Comment on above: Performed By: #### L [id number] #### [facility] ([facility]) [address] [place] [address] Potassium [Moles/Vol] 4.2 mmol/L Normal 3.5-5.1 [facility] Comment on above: Performed By: #### L [id number] #### [facility] ([facility]) [address] [facility] [place] [address] Sodium [Moles/Vol] 135 mmol/L Low 136-145 [facility] Comment on above: Performed By: #### L [id number] #### [facility] ([facility]) [address] [facility] [place] [address] Urea nitrogen [Mass/Vol] 60 mg/dL High 7-25 [facility] Comment on above: Performed By: #### L [id number] #### [facility] ([facility]) [address] [place] [address] UREA NITROGEN/CREATININE (MASS RATIO) IN SER/PLAS 30.5 Normal [facility] Comment on above: Performed By: #### L [id number] #### [facility] ([facility]) [address] [place] [address] CBC WITH AUTO DIFFERENTIALon 01-26-2024 Basophils (Bld) [#/Vol] 0.01 10*3/uL Normal 0.00-0.20 [facility] Comment on above: Performed By: #### L [id number] #### [facility] ([facility]) [address] [place] [address] Basophils/100 WBC (Bld) 0.1 % Normal 0.0-1.0 [facility] Comment on above: Performed By: #### L [id number] #### [facility] ([facility]) [address] [place] [address] Eosinophils (Bld) [#/Vol] 0.01 10*3/uL Normal 0.00-0.50 [facility] Comment on above: Performed By: #### L [id number] #### [facility] ([facility]) [address] [place] [address] Eosinophils/100 WBC (Bld) 0.1 % Normal 0.0-6.0 [facility] Comment on above: Performed By: #### L [id number] #### [facility] [address] [place] [address] Erythrocyte distribution width (RBC) [Ratio] 13.5 % Normal 11.5-15.0 [facility] Comment on above: Performed By: #### L [id number] #### [facility] ([facility]) [address] [place] [address] ERYTHROCYTE MEAN CORPUSCULAR HEMOGLOBIN CONCENTRATION (G/DL) BY AUTOMATED 32.1 g/dL Normal 32.0-35.0 [facility] Comment on above: Performed By: #### L [id number] #### [facility] ([facility]) [address] [place] [address] Hematocrit (Bld) [Volume fraction] 26.5 % Low 36.0-48.0 [facility] Comment on above: Performed By: #### L [id number] #### [facility] [address] [place] [address] Hemoglobin (Bld) [Mass/Vol] 8.5 g/dL Low 12.0-15.0 [facility] Comment on above: Performed By: #### L [id number] #### [facility] ([facility]) [address] [place] [address] Immature granulocytes (Bld) [#/Vol] 0.09 10*3/uL Normal 0.00-0.20 [facility] Comment on above: Performed By: #### L [id number] #### [facility] ([facility]) [address] [place] [address] Immature granulocytes/100 WBC (Bld) 0.8 % Normal 0.0-1.0 [facility] Comment on above: Performed By: #### L [id number] #### [facility] [address] [place] [address] Lymphocytes (Bld) [#/Vol] 0.47 10*3/uL Low 1.20-4.00 [facility] Comment on above: Performed By: #### L [id number] #### [facility] ([facility]) [address] [place] [address] Lymphocytes/100 WBC (Bld) 4.2 % Low 20.0-45.0 [facility] Comment on above: Performed By: #### L [id number] #### [facility] ([facility]) [address] [place] [address] MCH (RBC) [Entitic mass] 31.7 pg Normal 27.0-33.0 [facility] Comment on above: Performed By: #### L [id number] #### [facility] ([facility]) [address] [place] [address] MCV (RBC) [Entitic vol] 98.9 fL High 82.0-98.0 [facility] Comment on above: Performed By: #### L [id number] #### [facility] [address] [place] [address] Monocytes (Bld) [#/Vol] 1.01 10*3/uL High 0.10-1.00 [facility] Comment on above: Performed By: #### L [id number] #### [facility] ([facility]) [address] [place] [address] Monocytes/100 WBC (Bld) 8.9 % Normal 5.0-12.0 [facility] Comment on above: Performed By: #### L [id number] #### [facility] ([facility]) [address] [place] [address] Neutrophils (Bld) [#/Vol] 9.72 10*3/uL High 1.60-7.60 [facility] Comment on above: Performed By: #### L [id number] #### [facility] ([facility]) [address] [place] [address] Neutrophils/100 WBC (Bld) 85.9 % High 40.0-72.0 [facility] Comment on above: Performed By: #### L [id number] #### [facility] ([facility]) [address] [place] [address] NRBC (PER 100 WBCS) BY AUTOMATED COUNT 0.0 % Normal 0 [facility] Comment on above: Performed By: #### L [id number] #### [facility] ([facility]) [address] [place] [address] PLATELETS (10*3/UL) IN BLOOD AUTOMATED COUNT 199 10*3/uL Normal 150-400 [facility] Comment on above: Performed By: #### L [id number] #### [facility] ([facility]) [address] [place] [address] RBC (Bld) [#/Vol] 2.68 10*6/uL Low 3.80-5.00 [facility] Comment on above: Performed By: #### L [id number] #### [facility] ([facility]) [address] [place] [address] WBC (Bld) [#/Vol] 11.31 10*3/uL High 4.00-10.60 [facility] Comment on above: Performed By: #### L [id number] #### [facility] ([facility]) [address] [place] [address] CONSULTon 01-26-2024 CONSULT Physical Medicine an d [...] 325 mg at 01/25/24 0813 HYDROcodone-acetaminoph en ([place]) 5-325 mg per tablet 1 tablet, 1 [...] Date CARDIOVE (more content not included)... Normal [facility] CORTISOLon 01-26-2024 CORTISOL (UG/DL) IN SER/PLAS 18.9 ug/dL Normal 03-22 [facility] Comment on above: Performed By: #### L [id number] #### [facility] [facility]) [address] [place] [address] CORTISOL (UG/DL) IN SER/PLAS 15.1 ug/dL Normal 03-22 [facility] Comment on above: Order Comment: 30-mi n cortisol check after ACTH administration Performed By: #### L [id number] ####[facility] ([facility])[address] [place] [address] MAGNESIUMon 01-26-2024 Magnesium [Mass/Vol] 1.4 mg/dL Low 1.9-2.7 [facility] Comment on above: Performed By: #### L [id number] ####[facility] ([facility])[address] [place] [address] URINALYSIS WITH MICROSCOPICo n 01-26-2024 BILIRUBIN, TOTAL PRESENCE IN URINE Negative Normal Negative [facility] Comment on above: Performed By: #### L [id number] #### [facility] ([facility]) [address] [place] [address] Clarity (U) Clear Normal Clear [facility] Comment on above: Performed By: #### L [id number] #### [facility] [address] [place] [address] Color (U) Straw Abnormal Yellow [facility] Comment on above: Performed By: #### L [id number] #### [facility] ([facility]) [address] [place] [address] Glucose (U) [Mass/Vol] Negative Normal Negative [facility] Comment on above: Performed By: #### L [id number] #### [facility] ([facility]) [address] [place] [address] HEMOGLOBIN PRESENCE IN URINE Small Abnormal Negative [facility] Comment on above: Performed By: #### L [id number] #### [facility] ([facility]) [address] [place] [address] Ketones Ql (U) Negative Normal Negative [facility] Comment on above: Performed By: #### L [id number] #### [facility] ([facility]) [address] [place] [address] LEUKOCYTE ESTERASE PRESENCE IN URINE BY TEST STRIP Trace Abnormal Negative [facility] Comment on above: Performed By: #### L [id number] #### [facility] ([facility]) [address] [place] [address] MUCUS (#/HPF) IN URINE SEDIMENT Occasional Normal None Seen, Occasional, Few [facility] Comment on above: Performed By: #### L [id number] #### [facility] ([facility]) [address] [place] [address] NITRITE PRESENCE IN URINE Negative Normal Negative [facility] Comment on above: Performed By: #### L [id number] #### [facility] ([facility]) [address] [place] [address] pH (U) 5.0 [pH] Normal 5.0-8.0 [facility] Comment on above: Performed By: #### L [id number] #### [facility] ([facility]) [address] [place] [address] Protein (U) [Mass/Vol] Negative Normal Negative [facility] Comment on above: Performed By: #### L [id number] #### [facility] ([facility]) [address] [place] [address] RBC (#/HPF) IN URINE SEDIMENT 6-10 Abnormal None Seen [facility] Comment on above: Performed By: #### L [id number] #### [facility] ([facility]) [address] [place] [address] Specific gravity (U) [Rel density] 1.013 Low 1.015-1.020 [facility] Comment on above: Performed By: #### L [id number] #### [facility] ([facility]) [address] [place] [address] SQUAMOUS EPITHELIAL CELLS (#/HPF) IN URINE SEDIMENT Moderate Abnormal None Seen, Occasional [facility] Comment on above: Performed By: #### L [id number] #### [facility] ([facility]) [address] [place] [address] WBC (LEUKOCYTE) (#/HPF) IN URINE SEDIMENT 3-5 Abnormal None Seen [facility] Comment on above: Performed By: #### L [id number] #### [facility] ([facility]) [address] [place] [address] 30on 01-25-2024 30 The patient is Moderately [...] include meds as prescribed, cold therapy. Normal [facility] 30 The patient is Moderately Stable - Low risk of patient condition declining or worsening The patient's goals for the shift include comfort The clinical goals for the shift include pain management Over the shift, the patient did not make progress toward the following goals. Barriers to progression include post op pain. Recommendations to address these barriers include meds as prescribed. Normal [facility] ALBUMINon 01-25-2024 Albumin [Mass/Vol] 3.4 g/dL Low 3.5-5.7 [facility] Comment on above: Performed By: #### L [id number] #### [facility] ([facility]) [address] [place] [address] BASIC METABOLIC PANELon - Anion gap [Moles/Vol] 10 mmol/L Normal 7-20 [facility] Comment on above: Performed By: #### L [id number] #### [facility] ([facility]) [address] [place] [address] Calcium [Mass/Vol] 10.3 mg/dL Normal 8.6-10.3 [facility] Comment on above: Performed By: #### L [id number] #### [facility] ([facility]) [address] [place] [address] Chloride [Moles/Vol] 106 mmol/L Normal 98-107 [facility] Comment on above: Performed By: #### L [id number] #### [facility] ([facility]) [address] [place] [address] CO2 [Moles/Vol] 24 mmol/L Normal 21-31 [facility] Comment on above: Performed By: #### L [id number] #### [facility] ([facility]) [address] [place] [address] Creatinine [Mass/Vol] 1.94 mg/dL High 0.60-1.20 [facility] Comment on above: Performed By: #### L [id number] #### [facility] ([facility]) [address] [place] [address] GLOMERULAR FILTRATION RATE ML/MIN/1.73 SQ M.PREDICTED 26.2 mL/min/1.73m*2 Low >60.0 [facility] Comment on above: Result Comment: The [facility]???s estimated glomerular filtration rate (eGFR) will no [...] individuals. Performed By: #### L [id number] #### [facility] ([facility]) [address] [place] [address] Glucose [Mass/Vol] 137 mg/dL High 70-100 [facility] Comment on above: Performed By: #### L [id number] #### [facility] ([facility]) [address] [place] [address] Potassium [Moles/Vol] 5.0 mmol/L Normal 3.5-5.1 [facility] Comment on above: Performed By: #### L [id number] #### [facility] ([facility]) [address] [place] [address] Sodium [Moles/Vol] 135 mmol/L Low 136-145 [facility] Comment on above: Performed By: #### L [id number] #### [facility] ([facility]) [address] [place] [address] Urea nitrogen [Mass/Vol] 51 mg/dL High 7-25 [facility] Comment on above: Performed By: #### L [id number] #### [facility] [address] [place] [address] UREA NITROGEN/CREATININE (MASS RATIO) IN SER/PLAS 26.3 Normal [facility] Comment on above: Performed By: #### L [id number] #### [facility] [address] [place] [address] CBCon 01-25-2024 Erythrocyte distribution width (RBC) [Ratio] 13.2 % Normal 11.5-15.0 [facility] Comment on above: Performed By: #### L [id number] ####[facility] ([facility])[address] [place] [address] ERYTHROCYTE MEAN CORPUSCULAR HEMOGLOBIN CONCENTRATION (G/DL) BY AUTOMATED 31.7 g/dL Low 32.0-35.0 [facility] Comment on above: Performed By: #### L [id number] ####[facility])[address] [place] [address] Hematocrit (Bld) [Volume fraction] 26.2 % Low 36.0-48.0 [facility] Comment on above: Performed By: #### L [id number] ####[facility] [place] [address] Hemoglobin (Bld) [Mass/Vol] 8.3 g/dL Low 12.0-15.0 [facility] Comment on above: Performed By: #### L [id number] ####[facility] ([facility])[address] [place] [address] MCH (RBC) [Entitic mass] 31.4 pg Normal 27.0-33.0 [facility] Comment on above: Performed By: #### L [id number] ####[facility] ([facility])[address] [place] [address] MCV (RBC) [Entitic vol] 99.2 fL High 82.0-98.0 [facility] Comment on above: Performed By: #### Teri [id number] ####[facility] ([facility])[address] [place] [address] PLATELETS (10*3/UL) IN BLOOD AUTOMATED COUNT 188 10*3/uL Normal 150-400 [facility] Comment on above: Performed By: #### Teri [id number] ####[facility] ([facility])[address] [place] [address] RBC (Bld) [#/Vol] 2.64 10*6/uL Low 3.80-5.00 [facility] Comment on above: Performed By: #### L [id number] ####[facility] ([facility])[place] [address] WBC (Bld) [#/Vol] 13.05 10*3/uL High 4.00-10.60 [facility] Comment on above: Performed By: #### L [id number] ####[facility] ([facility])[address] [place] [address] CONSULTon 01-25-2024 CONSULT --- Attestation signed by [...] 325 mg at 01/25/24 0813 HYDROcodone-acetaminoph en ([place]) 5-325 mg per tablet 1 tablet, 1 tablet, oral, q6h PRN, Ruslan Ortez MD, 1 tablet at 01/24/24 1629 ibuprofen tablet 600 mg, 600 mg, oral, q8h PRN, Ruslan Ortze MD methocarbamol (Robaxin) tablet 500 mg, 500 mg, oral, 4x daily PRN, Ruslan Ortez MD naloxone (Narcan) injection 0.2 mg, 0.2 mg, intravenous, PRN OR naloxone (Narcan) injection 0.2 mg, 0.2 mg, intramuscular, PRN OR naloxone (Narcan) i (more content not included)... Normal [facility] CORTISOLon 01-25-2024 CORTISOL (UG/DL) IN SER/PLAS 2.2 ug/dL Low 6-23 [facility] Comment on above: Performed By: #### L [id number] ####[facility] ([facility])[address] [place] [address] CREATININE, URINE, RANDOMon 01-25-2024 Creatinine (U) [Mass/Vol] 108.0 mg/dL Normal 26-299 [facility] Comment on above: Performed By: #### L [id number] #### [facility] ([facility]) [address] [place] [address] FERRITINon 01-25-2024 FERRITIN (NG/ML) IN SER/PLAS 285.0 ng/mL Normal 11.0-307.0 [facility] Comment on above: Performed By: #### L [id number] #### [facility] ([facility]) [address] [place] [address] FOLATEon 01-25-2024 FOLATE (NG/ML) IN SER/PLAS 16.22 ng/mL Normal 6.6-1000 [facility] Comment on above: Performed By: #### L [id number] #### [facility] [address] [place] [address] IRON AND TIBCon 01-25-2024 IRON (UG/DL) IN SER/PLAS 46 ug/dL Low 50-212 [facility] Comment on above: Performed By: #### L [id number] ####[facility] ([facility])[address] [place] [address] IRON BINDING CAPACITY (UG/DL) IN SER/PLAS 235 ug/dL Low 250-450 [facility] Comment on above: Performed By: #### L [id number] ####[facility] ([facility])[address] [place] [address] IRON BINDING CAPACITY.UNSATURATE D (UG/DL) IN SER/PLAS 189.0 ug/dL Normal 155.0-355.0 [facility] Comment on above: Performed By: #### L [id number] ####[facility] ([facility])[address] [place] [address] IRON SATURATION (%) IN SER/PLAS 20 % Normal 20-50 [facility] Comment on above: Performed By: #### L [id number] ####[facility] ([facility])[address] [place] [address] SODIUM, URINE, RANDOMon 12-30 Sodium (U) [Moles/Vol] 32 mmol/L Normal [facility] Comment on above: Performed By: #### L [id number] #### [facility] [address] [place] [address] TSH3 REFLEX TO FT4on 024 THYROTROPIN (MIU/L) IN SER/PLAS BY DETECTION LIMIT <= 0.05 MIU/L 0.97 mIU/L Normal 0.34-5.60 [facility] Comment on above: Performed By: #### L [id number] #### [facility] ([facility]) [address] [place] [address] VITAMIN B12on 01-25-2024 Cobalamin (Vitamin B12) [Mass/Vol] 310 pg/mL Normal 180-914 [facility] Comment on above: Result Comment: REFAbbie POOLE RANGES: 180-914 pg/mL Normal 145-179 pg/mL Indeterminate <145 pg/mL Deficient Performed By: #### L [id number] ####[facility] ([facility] [place] [address] 30on 01-24-2024 30 The patient is Moderately [...] and maintained or improved Outcome: Progressing Normal [facility] HPon 01-24-2024 HP H&P reviewed. The patient was examined and there are no changes to the H&P. I personally examined the patient and Marked his operative extremity, all questions answered and consents signed. Discussed operative and post op plan. Normal [facility] MRSA/MSSA DNA NASALon 2023 MRSA DNA Negative Normal Negative [facility] Comment on above: Order Comment: Testi ng [...] preclude nasal colonization. Performed By: #### L [id number] ####[facility] ([facility])[address] [place] [address] MSSA DNA Negative Normal Negative [facility] Comment on above: Order Comment: Testi ng [...] preclude nasal colonization. Performed By: #### L [id number] ####[facility] ([facility])[address] [place] [address] OPNOTEon 01-24-2024 OPNOTE TOTAL KNEE ARTHROPLA STY (R) Operative Note Date: 01/24/2024 Location: [facility] OR Name: Lizabeth Montanez, : 1945, Diagnosis Pre-op Diagnosis * Primary osteoarthritis of right knee [M17.11] Post-op Diagnosis * Primary osteoarthritis of right knee [M17.11] Procedures TOTAL KNEE ARTHROPLASTY 86518 - MO ARTHRP KNE CONDYLE&PLATU MEDIAL&LAT COMPARTMENTS MO INJECTION AA&/STRD FEMORAL NERVE W/IMG GDN [[id number]] Surgeons * Mynor Gallegos - Primary Ruslan Lew MD Procedure Summary Anesthesia: General ASA: III Estimated Blood Loss: 250 mL Drains: [REMOVED] Urethral Catheter Non-latex 16 Fr. (Removed) Implants Type Name Action Serial No. Bone Cement CEMENT,BONE,[id number] - [id number] Implanted PERSONA CR FEMUR Implanted PERSONA NATURAL TIBIA Implanted PERSONA PATELLA Implanted PERSONA ARTICULAR SURFACE Implanted Implants : Persona Size 5 CR femur component and size E natural tibial component, Size 35 mm round patellar resurfacing , Size 10 mm Medial congruent poly liner ( MC) Staff: [employer] Programmer: Leilani Guerrero RN Scrub Person: Carlie Francisco CST Ski Maker: Rogelio Feliz CSA Indications: Lizabeth Montanez is [...] the os (more content not included)... Normal [facility] POCT GLUCOSE METER UNSOLICIT ED RESULTSon 01-24-2024 Glucose [Mass/Vol] 97 mg/dL Normal 70-105 [facility] Comment on above: Order Comment: Waive d Testing in the ED is performed under the ED CLIA certificate #[id number]. Result Comment: czyd orc Performed By: #### L [id number] #### [facility] ([facility]) [address] [place] [address] APTTon 01-16-2024 ACTIVATED PARTIAL THROMBOPLASTIN TIME IN PPP BY COAGULATION ASSAY 33.4 Seconds Normal 25.0-35.0 [facility] Comment on above: Result Comment: Clin ical significance of the APTT is questionable in the presence of heparin. Performed By: #### L [id number] ####[facility] ([facility])[address] [place] [address] BASIC METABOLIC PANELon 12-29 Anion gap [Moles/Vol] 12 mmol/L Normal 7-20 [facility] Comment on above: Performed By: #### L [id number] #### [facility] ([facility]) [address] [place] [address] Calcium [Mass/Vol] 11.5 mg/dL High 8.6-10.3 [facility] Comment on above: Performed By: #### L [id number] #### [facility] [address] [place] [address] Chloride [Moles/Vol] 108 mmol/L High 98-107 [facility] Comment on above: Performed By: #### L [id number] #### [facility] ([facility]) [address] [place] [address] CO2 [Moles/Vol] 24 mmol/L Normal 21-31 [facility] Comment on above: Performed By: #### L [id number] #### [facility] ([facility]) [address] [place] [address] Creatinine [Mass/Vol] 1.75 mg/dL High 0.60-1.20 [facility] Comment on above: Performed By: #### L [id number] #### [facility] ([facility]) [address] [place] [address] GLOMERULAR FILTRATION RATE ML/MIN/1.73 SQ M.PREDICTED 29.6 mL/min/1.73m*2 Low >60.0 [facility] Comment on above: Result Comment: [facility]???s estimated glomerular filtration rate (eGFR) will no [...] individuals. Performed By: #### L [id number] #### [facility] ([facility]) [address] [place] [address] Glucose [Mass/Vol] 96 mg/dL Normal 70-100 [facility] Comment on above: Performed By: #### L [id number] #### [facility] ([facility]) [address] [place] [address] Potassium [Moles/Vol] 4.3 mmol/L Normal 3.5-5.1 [facility] Comment on above: Performed By: #### L [id number] #### [facility] ([facility]) [address] [place] [address] Sodium [Moles/Vol] 140 mmol/L Normal 136-145 [facility] Comment on above: Performed By: #### L [id number] #### [facility] [address] [place] [address] Urea nitrogen [Mass/Vol] 56 mg/dL High 7-25 [facility] Comment on above: Performed By: #### L [id number] #### [facility] [address] [place] [address] UREA NITROGEN/CREATININE (MASS RATIO) IN SER/PLAS 32.0 Normal [facility] Comment on above: Performed By: #### L [id number] #### [facility] ([facility]) [address] [place] [address] CBC WITH AUTO DIFFERENTIALon 01-16-2024 Basophils (Bld) [#/Vol] 0.05 10*3/uL Normal 0.00-0.20 [facility] Comment on above: Performed By: #### L [id number] ####[facility] ([facility])[address] [place] [address] Basophils/100 WBC (Bld) 0.9 % Normal 0.0-1.0 [facility] Comment on above: Performed By: #### L [id number] ####[facility] ([facility])[address] [place] [address] Eosinophils (Bld) [#/Vol] 0.16 10*3/uL Normal 0.00-0.50 [facility] Comment on above: Performed By: #### L [id number] ####[facility] [place] [address] Eosinophils/100 WBC (Bld) 2.7 % Normal 0.0-6.0 [facility] Comment on above: Performed By: #### L [id number] ####[facility] [place] [address] Erythrocyte distribution width (RBC) [Ratio] 13.7 % Normal 11.5-15.0 [facility] Comment on above: Performed By: #### L [id number] ####[facility] ([facility])[address] [place] [address] ERYTHROCYTE MEAN CORPUSCULAR HEMOGLOBIN CONCENTRATION (G/DL) BY AUTOMATED 31.8 g/dL Low 32.0-35.0 [facility] Comment on above: Performed By: #### L [id number] ####[facility] ([facility])[address] [place] [address] Hematocrit (Bld) [Volume fraction] 30.8 % Low 36.0-48.0 [facility] Comment on above: Performed By: #### L [id number] ####[facility] ([facility])[address] [place] [address] Hemoglobin (Bld) [Mass/Vol] 9.8 g/dL Low 12.0-15.0 [facility] Comment on above: Performed By: #### L [id number] ####[facility] ([facility])[address] [place] [address] Immature granulocytes (Bld) [#/Vol] 0.01 10*3/uL Normal 0.00-0.20 [facility] Comment on above: Performed By: #### L [id number] ####[facility] ([facility])[address] [place] [address] Immature granulocytes/100 WBC (Bld) 0.2 % Normal 0.0-1.0 [facility] Comment on above: Performed By: #### L [id number] ####[facility] ([facility])[address] [place] [address] Lymphocytes (Bld) [#/Vol] 0.79 10*3/uL Low 1.20-4.00 [facility] Comment on above: Performed By: #### L [id number] ####[facility] ([facility])[address] [place] [address] Lymphocytes/100 WBC (Bld) 13.5 % Low 20.0-45.0 [facility] Comment on above: Performed By: #### L [id number] ####[facility] ([facility])[address] [place] [address] MCH (RBC) [Entitic mass] 31.3 pg Normal 27.0-33.0 [facility] Comment on above: Performed By: #### L [id number] ####[facility] ([facility])[address] [place] [address] MCV (RBC) [Entitic vol] 98.4 fL High 82.0-98.0 [facility] Comment on above: Performed By: #### L [id number] ####[facility] ([facility])[address] [place] [address] Monocytes (Bld) [#/Vol] 0.57 10*3/uL Normal 0.10-1.00 [facility] Comment on above: Performed By: #### L [id number] ####[facility] ([facility])[address] [place] [address] Monocytes/100 WBC (Bld) 9.7 % Normal 5.0-12.0 [facility] Comment on above: Performed By: #### L [id number] ####[facility] ([facility])[address] [place] [address] Neutrophils (Bld) [#/Vol] 4.28 10*3/uL Normal 1.60-7.60 [facility] Comment on above: Performed By: #### L [id number] ####[facility] [place] [address] Neutrophils/100 WBC (Bld) 73.0 % High 40.0-72.0 [facility] Comment on above: Performed By: #### L [id number] ####[facility] [place] [address] NRBC (PER 100 WBCS) BY AUTOMATED COUNT 0.0 % Normal 0 [facility] Comment on above: Performed By: #### L [id number] ####[facility] [place] [address] PLATELETS (10*3/UL) IN BLOOD AUTOMATED COUNT 229 10*3/uL Normal 150-400 [facility] Comment on above: Performed By: #### L [id number] ####[facility] [place] [address] RBC (Bld) [#/Vol] 3.13 10*6/uL Low 3.80-5.00 [facility] Comment on above: Performed By: #### L [id number] ####[facility] [place], [place] [address] WBC (Bld) [#/Vol] 5.86 10*3/uL Normal 4.00-10.60 [facility] Comment on above: Performed By: #### L [id number] ####[facility] [place] [address] Consulton 01-16-2024 Consult [id number] Mignon Montanez E 1945 F Date Provider Department [place] 01/16/2024 [id number] GALLEGOS MP ORTHO MPORTHO Family History Problem Relation Age of Onset Other Mother Other Mother Heart attack Father's Sister Family Status - Relation Status Age at Mother Father's Sister Level of Service:13741 MO OFFICE/OUTPATIENT ESTABLISHED LOW MDM 20 MIN Reason for Visit and Comments: Pain [136] - Pre-op R TKA Normal [facility] HEMOGLOBIN A1Con 01-16-2024 Glucose [Mass/Vol] 103 mg/dL Normal [facility] Comment on above: Performed By: #### L [id number] ####[facility] [place] [address] HbA1c (Bld) [Mass fraction] 5.2 % Normal 4.0-6.0 [facility] Comment on above: Performed By: #### L [id number] ####[facility] [place] [address] HPon 01-16-2024 Orthopedic Surgery Subjective Chief complaint: [...] the patient's ability to complete ADLs. Normal [facility] Labon 01-16-2024 Lab [id number] MontanezMignon n E 1945 F Date Provider Department [place] 01/16/2024 [id number] RESOURCE [facility] Pavi Family History Problem Relation Age of Onset Other Mother Other Mother Heart attack Father's Sister Family Status - Relation Status Age at Mother Father's Sister Normal [facility] Orders Onlyon 01-16-2024 Orders Only [id number] MontanezMignon nicolas cinthia E 1945 F Date Provider Department [place] 01/16/2024 KENNA SCHWARTZ [facility] Family History Problem Relation Age of Onset Other Mother Other Mother Heart attack Father's Sister Family Status - Relation Status Age at Mother Father's Sister Normal [facility] PROTIME-INRon 01-16-2024 INR IN PPP BY COAGULATION ASSAY 1.34 High 0.90-1.10 [facility] Comment on above: Result Comment: ACCC P [...] CHEST 1995;[id number]. Performed By: #### L [id number] ####[facility] (BEAKER)[address] [place] [address] PROTHROMBIN TIME (PT) IN PPP BY COAGULATION ASSAY 16.6 Seconds High 12.3-14.8 [facility] Comment on above: Performed By: #### L [id number] ####[facility] (BEAKER)[address] [place] [address] TYPE AND SCREENon 01-16-2024 AB SCREEN Negative Normal [facility] Comment on above: Performed By: #### L [id number] #### [facility]OD [facility] , ABO group Nom (Bld) O Normal [facility] Comment on above: Performed By: #### L [id number] #### [facility] , RH TYPE IN BLOOD Positive Normal [facility] Comment on above: Performed By: #### L [id number] #### [facility] , URINALYSIS MICROSCOPIC WITH REFLEX CULTUREon 01-16-2024 CASTS IN URINE Normal [facility] Comment on above: Performed By: #### L [id number] ####[facility] (BEAKER)[address] [place] [address] CRYSTALS IN URINE Normal [facility] Comment on above: Performed By: #### L [id number] ####[facility] (BEAKER)[address] [place] [address] MUCUS (#/HPF) IN URINE SEDIMENT Occasional Normal None Seen, Occasional, Few [facility] Comment on above: Performed By: #### L [id number] ####[facility] [place] [address] OTHER MICROSCOPIC ELEMENTS Normal [facility] Comment on above: Performed By: #### L [id number] ####[facility] ([facility])[address] [place] [address] RBC (#/HPF) IN URINE SEDIMENT 0-2 Abnormal None Seen [facility] Comment on above: Performed By: #### L [id number] ####[facility] ([facility])[address] [place] [address] SQUAMOUS EPITHELIAL CELLS (#/HPF) IN URINE SEDIMENT Occasional Normal None Seen, Occasional [facility] Comment on above: Performed By: #### L [id number] ####[facility] ([facility])[address] [place] [address] WBC (LEUKOCYTE) (#/HPF) IN URINE SEDIMENT 3-5 Abnormal None Seen [facility] Comment on above: Performed By: #### L [id number] ####[facility] ([facility])[address] [place] [address] URINALYSIS WITH REFLEX CULTU REon 01-16-2024 BILIRUBIN, TOTAL PRESENCE IN URINE Negative Normal Negative [facility] Comment on above: Performed By: #### L [id number] ####[facility] ([facility])[address] [place] [address] Clarity (U) Clear Normal Clear [facility] Comment on above: Performed By: #### L [id number] ####[facility] ([facility])[address] [place] [address] Color (U) Yellow Normal Yellow [facility] Comment on above: Performed By: #### L [id number] ####[facility] ([facility])[address] [place] [address] Glucose (U) [Mass/Vol] Negative Normal Negative [facility] Comment on above: Performed By: #### L [id number] ####[facility] ([facility])[address] [place] [address] HEMOGLOBIN PRESENCE IN URINE Negative Normal Negative [facility] Comment on above: Performed By: #### L [id number] ####[facility] ([facility])[address] [place] [address] Ketones Ql (U) Negative Normal Negative [facility] Comment on above: Performed By: #### L [id number] ####[facility] ([facility])[address] [place] [address] LEUKOCYTE ESTERASE PRESENCE IN URINE BY TEST STRIP Trace Abnormal Negative [facility] Comment on above: Performed By: #### L [id number] ####[facility] ([facility])[address] [place] [address] NITRITE PRESENCE IN URINE Negative Normal Negative [facility] Comment on above: Performed By: #### L [id number] ####[facility] ([facility])[address] [place] [address] pH (U) 5.0 [pH] Normal 5.0-8.0 [facility] Comment on above: Performed By: #### L [id number] ####[facility] ([facility])[address] [place] [address] Protein (U) [Mass/Vol] Negative Normal Negative [facility] Comment on above: Performed By: #### L [id number] ####[facility] ([facility])[address] [place] [address] Specific gravity (U) [Rel density] 1.015 Normal 1.015-1.020 [facility] Comment on above: Performed By: #### L [id number] ####[facility] ([facility])[address] [place] [address] URINE CULTURE, ROUTINEon Bacteria identified Cx Nom (U) 50,000 - 100,000 CFU/ML Uro-Genital Quintin Normal [facility] Comment on above: Performed By: #### L [id number] #### [facility] , Orders Onlyon 01-14-2024 Orders Only [id number] Mignon Montanez 1945 F Date Provider Department Center 01/14/2024 [id number] LEONARDO [facility] PAT [facility] Family History Problem Relation Age of Onset Other Mother Other Mother Heart attack Father's Sister Family Status - Relation Status Age at Mother Father's Sister Normal [facility] Office Visiton 01-07-2024 Follow-up visit [id number] Mignon Montanez n E 1945 Provider Department Center 01/07/2024 3848-YENI UGALDE [facility] Family History Problem Relation Age of Onset Other Mother Other Mother Heart attack Father's Sister Family Status - Relation Status Age at Mother Father's Sister Level of Service:84557 MO OFFICE/OUTPATIENT ESTABLISHED LOW MDM 20 MIN Reason for Visit and Comments: Follow-up [052645] - Patient needs cardiac clearance [facility] Office Visiton 11-28-2023 Follow-up visit [id number] Mignon Montanez n E 1945 Provider Department Center 11/28/2023 293-MYNOR GALLEGOS MP ORTHO MPORTHO Family History Problem Relation Age of Onset Other Mother Other Mother Heart attack Father's Sister Family Status - Relation Status Age at Mother Father's Sister Level of Service:95386 MO OFFICE/OUTPATIENT ESTABLISHED MOD MDM 30 MIN Reason for Visit and Comments: Pain [136] - L tka F/U Normal [facility] XR KNEE JUAN JOSE 3 Von 02-27-2023 XR KNEE JUAN JOSE 3 V EXAMINATION: XR KNEE JUAN JOSE 3 V HISTORY: Osteoarthritis of knee ; chronic bilateral knee pain COMPARISON: XR knee bilateral 04/20/2021 FINDINGS: RIGHT FINDINGS: BONES: Complete loss of the anterior, medial, lateral joint spaces with hraw-qn-cvfv articulation and marked sclerosis. Lateral subluxation of the tibial plafond in relation to the femoral condyles. Large periarticular degenerative osteophytes involving all 3 compartments. SOFT TISSUES: No visible soft tissue swelling. OTHER: Large joint effusion. LEFT FINDINGS: BONES: Marked narrowing of the anterior, medial, lateral joint spaces with near zzfk-cr-qejm articulation and subchondral sclerosis. Prominent lateral subluxation of the tibial plafond in relation to the femoral condyles. Large periarticular degenerative osteophytes involving all 3 compartments. SOFT TISSUES: No visible soft tissue swelling. OTHER: Large joint effusion. IMPRESSION: RIGHT CONCLUSION: Advanced degenerative joint disease. LEFT CONCLUSION: Advanced degenerative joint disease. Electronically authenticated by: SHILA RICHARDS Date: 2023-02-27 16:24 Normal [facility] CBC AUTO DIFFon 12-26-2022 BASO # 0.0 103/ul Normal 0.0-0.1 [facility] Comment on above: Performed By: #### C BC ####[facility] [address] [place] [address]Dr. Malia Bustamante Basophils/100 WBC (Bld) 0.5 % Normal 0.2-2.0 [facility] Comment on above: Performed By: #### C BC ####[facility] [address] [place], [place] [address]Dr. Malia Bustamante EO # 0.2 103/ul Normal 0.0-0.7 [facility] Comment on above: Performed By: #### C BC ####[facility] St[address]qj[address] [place], [place] [address]Dr. Malia Bustamante Eosinophils/100 WBC (Bld) 3.2 % Normal 0.9-7.0 [facility] Comment on above: Performed By: #### C BC ####[facility] Uorbtysxsa[address] [place], [place] [address]Dr. Malia Bustamante Erythrocyte distribution width (RBC) [Ratio] 13.5 % Normal 11.0-15.0 [facility] Comment on above: Performed By: #### C BC ####[facility] Kg[address]ful[address] [place], [place] [address]Dr. Malia Bustamante Hematocrit (Bld) [Volume fraction] 31.8 % Critically low 36.0-48.0 [facility] Comment on above: Performed By: #### C BC ####[facility] Eqxoit[address]re[address] [place], [place] [address]Dr. Malia Bustamante Hemoglobin (Bld) [Mass/Vol] 10.1 g/dL Critically low 12.0-16.0 [facility] Comment on above: Performed By: #### C BC ####[facility] Vorv[address] [place], [place] [address]DrMacey Malia Bustamante IG # 0.02 10e3/ul Normal 0.00-0.03 [facility] Comment on above: Performed By: #### C BC ####[facility] [address] [place] [address]DrMacey Malia Bustamante IG % 0.4 % Normal 0.0-0.5 [facility] Comment on above: Performed By: #### C BC ####[facility] [address] [place] [address]DrMacey Malia Robby LYMPH # 0.8 103/ul Critically low 1.2-3.8 [facility] Comment on above: Performed By: #### C BC ####[facility] [address] [place] [address]DrMacey Malia Robby Lymphocytes/100 WBC (Bld) 13.8 % Critically low 20.5-60.0 [facility] Comment on above: Performed By: #### C BC ####[facility] Jqrjct[address] [place], [place] [address]DrMacey Malia Robby MANUAL DIFF REQ NO Normal [facility] Comment on above: Performed By: #### C BC ####[facility] [address] [place], [place] [address]DrMacey Malia Robby MCH (RBC) [Entitic mass] 32.0 pg Normal 26.7-34.0 [facility] Comment on above: Performed By: #### C BC ####[facility] Vx[address] [place], [place] [address]DrMacey Malia Robby MCHC (RBC) [Mass/Vol] 31.8 g/dL Normal 29.9-35.2 [facility] Comment on above: Performed By: #### C BC ####[facility] [address] [place], [place] [address]DrMacey Malia Robby MCV (RBC) [Entitic vol] 100.6 fL Critically high 81.0-99.0 [facility] Comment on above: Performed By: #### C BC ####[facility] [address] [place], [place] [address]DrMacey Bustamante MONO # 0.4 103/ul Normal 0.3-0.8 [facility] Comment on above: Performed By: #### C BC ####[facility] [address] [place] [address]Dr. Malia Bustamante Monocytes/100 WBC (Bld) 7.9 % Normal 1.7-12.0 [facility] Comment on above: Performed By: #### C BC ####[facility] [address] [place] [address]Dr. Malia Bustamante NEUT # 4.2 103/ul Normal 1.4-6.5 [facility] Comment on above: Performed By: #### C BC ####[facility] [address] [place] [address]Dr. Malia Bustamante Neutrophils/100 WBC (Bld) 74.2 % Normal 43.0-75.0 [facility] Comment on above: Performed By: #### C BC ####[facility] [address] [place] [address]Dr. Malia Bustamante Platelet mean volume (Bld) [Entitic vol] 11.2 fL Normal 9.5-13.5 [facility] Comment on above: Performed By: #### C BC ####[facility] [address] [place] [address]Dr. Malia Bustamante PLT 165 103/ul Normal 150-450 [facility] Comment on above: Performed By: #### C BC ####[facility] [address] [place] [address]Dr. Malia Bustamante RBC 3.16 106/ul Critically low 4.20-5.40 [facility] Comment on above: Performed By: #### C BC ####[facility] [address]xf[address] [place] [address]Dr. Malia Bustamante WBC 5.6 103/ul Normal 4.0-11.0 [facility] Comment on above: Performed By: #### C BC ####[facility] [address] [place] [address]DrMacey Flakitatahir Bustamante PROF CHEM 8 (BAS METB)on Anion gap [Moles/Vol] 16.3 mmol/L Normal [facility] Comment on above: Performed By: #### B MP ####[facility] Jbruansbsk[address] [place], [place] [address]Dr. Malia Bustamante Calcium [Mass/Vol] 11.1 mg/dL Critically high 8.5-10.[address] [facility] Comment on above: Performed By: #### B MP ####[facility] K[address]kt[address]xf[address] [place], [place] [address]Dr. Malia Bustamante Chloride [Moles/Vol] 113 mmol/L Critically high 98-107 [facility] Comment on above: Performed By: #### B MP ####[facility] E[address]oly[address]fz[address] [place], [place] [address]Dr. Flakitatahir Bustamante CO2 [Moles/Vol] 22.9 mmol/L Normal 21.0-32.0 [facility] Comment on above: Performed By: #### B MP ####[facility] H[address]bdzxl[address] [place], [place] [address]Dr. Malia Bustamante Creatinine [Mass/Vol] 1.84 mg/dL Critically high 0.55-1.02 [facility] Comment on above: Performed By: #### B MP ####[facility] [address]ux[address] [place], [place] [address]Dr. Malia Bustamante EGFR-AF LATVIAN 32 mL/min/1.73m2 Critically low >=60 [facility] Comment on above: Performed By: #### B MP ####[facility] Ndiecvqvzs[address] [place], [place] [address]Dr. Malia Bustamante EGFR-NON AF LATVIAN 27 mL/min/1.73m2 Critically low >=60 [facility] Comment on above: Performed By: #### B MP ####[facility] [address]iqj[address]tu[address] [place], [place] [address]Dr. Malia Bustamante Glucose [Mass/Vol] 97 mg/dL Normal 74-106 [facility] Comment on above: Performed By: #### B MP ####[facility] [address]jzizxlhr[address] [place], [place] [address]Dr. Malia Bustamante Potassium [Moles/Vol] 5.2 mmol/L Critically high 3.5-5.1 [facility] Comment on above: Performed By: #### B MP ####[facility] [address] [place], [place] [address]Fv. Malia Bustamante Sodium [Moles/Vol] 147 mmol/L Critically high 136-[address] [facility] Comment on above: Performed By: #### B MP ####[facility] [address] [place] [id number]. Malia Bustamante Urea nitrogen [Mass/Vol] 42.0 mg/dL Critically high 7.0-18.0 [facility] Comment on above: Performed By: #### B MP ####[facility] [address] [place] [address]Dr. Malia Bustamante Urea nitrogen/Creatinine [Mass ratio] 22.8 mg/mg Normal [facility] Comment on above: Performed By: #### B MP ####[facility] [address] [place] [id number]. Malia Bustamante US KIDNEYS BLADDERon 023 US KIDNEYS BLADDER US KIDNEYS BLADDER EXAM DATE: 12/08/2022 6:55 AM MST COMPARISON: None available. INDICATION: Chronic kidney disease. TECHNIQUE: Real-time ultrasound scanning of the kidneys and bladder was performed by the leather goods sales representative. Geodetic Survey Director static images are submitted for review. FINDINGS: [...] PAMELA PECK Date: 2022-12-08 13:20 Normal [facility] CULTURE URINEon 12-01-2022 CULTURE URINE Culture Observations : LIGHT GROWTH OF MIXED GENITAL QUINTIN. NO POTENTIAL PATHOGENS SEEN. Normal [facility] Comment on above: Performed By: #### U RCX ####[facility] [address] [place] [address]Dr. Malia Bustamante MICROALBUMIN, RAND URon 03-0 mALB 1.7 mg/L Normal <=30.0 [facility] Comment on above: Performed By: #### M ALBR ####[facility] [address] [place] [address]Dr. Malia Bustamante UA RANDOM W/MICROSCOPICon BACTERIA NONE SEEN Normal NONE SEEN [facility] Comment on above: Performed By: #### U AMIC ####[facility] [address] [place], [place] [address]Dr. Malia Bustamante Bilirubin Ql (U) Negative Normal NEGATIVE [facility] Comment on above: Performed By: #### U AMIC ####[facility] [address] [place], [place] [address]Dr. Malia Bustamante CAST NONE SEEN Normal NONE SEEN [facility] Comment on above: Performed By: #### U AMIC ####[facility] [address] [place] [address]Dr. Malia Bustamante Clarity (U) CLEAR Normal CLEAR [facility] Comment on above: Performed By: #### U AMIC ####[facility] Tim[address] [place], [place] [address]Dr. Malia Bustamante Color (U) LT. YELLOW Normal YELLOW [facility] Comment on above: Performed By: #### U AMIC ####[facility] [address] [place], [place] [address]Dr. Malia Bustamante Crystals LM Nom (Urine sed) NONE SEEN Normal NONE SEEN [facility] Comment on above: Performed By: #### U AMIC ####[facility] [address] [place], [place] [address]Dr. Malia Bustamante Epithelial cells LM Ql (Urine sed) FEW Abnormal NONE SEEN /RARE [facility] Comment on above: Performed By: #### U AMIC ####[facility] [address] [place] [address]Dr. Malia Bustamante Glucose Ql (U) Negative Normal NEGATIVE [facility] Comment on above: Performed By: #### U AMIC ####[facility] [address] [place] [address]Dr. Malia Bustamante Hemoglobin Ql (U) Negative Normal NEGATIVE [facility] Comment on above: Performed By: #### U AMIC ####[facility] [address] [place] [address]Dr. Malia Bustamante Ketones Ql (U) Negative Normal NEGATIVE [facility] Comment on above: Performed By: #### U AMIC ####[facility] [address] [place] [address]Dr. Malia Bustamante LEUKOCYTES Negative Normal NEGATIVE [facility] Comment on above: Performed By: #### U AMIC ####[facility] [address] [place], [place] [address]Dr. Yitahir Bustamante MUCOUS NONE SEEN Normal NONE SEEN [facility] Comment on above: Performed By: #### U AMIC ####[facility] [address] [place], [place] [address]Dr. Malia Bustamante Nitrite Ql (U) Negative Normal NEGATIVE [facility] Comment on above: Performed By: #### U AMIC ####[facility] [address] [place] [address]Dr. Malia Bustamante pH (U) 5.5 [pH] Normal 5-9 [facility] Comment on above: Performed By: #### U AMIC ####[facility] [address] [place], [place] [address]Dr. Malia Bustamante RBC NONE SEEN Abnormal 0-2 [facility] Comment on above: Performed By: #### U AMIC ####[facility] [address] [place] [address]Dr. Flakitatahir Bustamante SPEC GRAVITY 1.020 Normal 1.005-<=1.025 [facility] Comment on above: Performed By: #### U AMIC ####[facility] [address] [place], [place] [address]Hl. Malia Bustamante UA PROTEIN Negative Normal NEGATIVE/ TRACE [facility] Comment on above: Performed By: #### U AMIC ####[facility] [address] [place], [place] [address]Po. Malia Bustamante Urobilinogen Qn (U) 0.2 {Álvaro'U}/dL Normal 0.2 - 1. 0 [facility] Comment on above: Performed By: #### U AMIC ####[facility] [address] [place], [place] [address]Zs. Malia Bustamante WBC NONE SEEN Normal NONE SEEN [facility] Comment on above: Performed By: #### U AMIC ####[facility] [address] [place], [place] [address]To. Malia Robby ECHOCARDIO M/2D COMPLETEon 0 11-01-2022 ECHOCARDIO M/2D COMPLETE Patient: LIZABETH MONTANEZ Exam Date: 11/01/2022 : 1945 Gender:F Ordering : DR ISAK BONE . Admission #: [id number] Family : Order #: [id number] CLICK HERE TO VIEW EXAM ECHOCARDIOGRAM REPORT [...] M.D. on 11/02/2022 at 11:25 Normal [facility] INSULINon 10-30-2022 Insulin 11.5 uIU/mL Normal 2.6-24.9 [facility] Comment on above: Performed By: #### I NSULIN #### [facility] [address] [place] [address] Dr. Malia Bustamante BNPon 10-29-2022 Natriuretic peptide B (Bld) [Mass/Vol] 4315.0 pg/mL Critically high <=1,800.0 [facility] Comment on above: Performed By: #### L IPID, CMP, TSH, T7, BNP #### [facility] [address] [place] [address] [address] Malia Bustamante CBC AUTO DIFFon 10-29-2022 BASO # 0.0 103/ul Normal 0.0-0.1 [facility] Comment on above: Performed By: #### C BC #### [facility] [address] [place] [address] [address] Malia Bustamante Basophils/100 WBC (Bld) 0.6 % Normal 0.2-2.0 [facility] Comment on above: Performed By: #### C BC #### [facility] [address] [place] [address] Dr. Malia Bustamante EO # 0.1 103/ul Normal 0.0-0.7 [facility] Comment on above: Performed By: #### C BC #### [facility] [address] [place] [address] Dr. Malia Bustamante Eosinophils/100 WBC (Bld) 1.6 % Normal 0.9-7.0 [facility] Comment on above: Performed By: #### C BC #### [facility] [address] [place] [address] Dr. Malia Butsamante Erythrocyte distribution width (RBC) [Ratio] 13.1 % Normal 11.0-15.0 [facility] Comment on above: Performed By: #### C BC #### [facility] [address] [place] [address] Dr. Malia Bustamante Hematocrit (Bld) [Volume fraction] 31.3 % Critically low 36.0-48.0 [facility] Comment on above: Performed By: #### C BC #### [facility] [address] [place] [address] Dr. Malia Bustamante Hemoglobin (Bld) [Mass/Vol] 10.3 g/dL Critically low 12.0-16.0 [facility] Comment on above: Performed By: #### C BC #### [facility] [address] [place] [address] Dr. Malia Bustamante IG # 0.03 10e3/ul Normal 0.00-0.03 [facility] Comment on above: Performed By: #### C BC #### [facility] [address] [place] [address] Dr. Malia Bustamante IG % 0.5 % Normal 0.0-0.5 [facility] Comment on above: Performed By: #### C BC #### [facility] [address] [place] [address] Dr. Malia Bustamante LYMPH # 0.7 103/ul Critically low 1.2-3.8 [facility] Comment on above: Performed By: #### C BC #### [facility] [address] [place] [address] Dr. Malia Bustamante Lymphocytes/100 WBC (Bld) 10.1 % Critically low 20.5-60.0 [facility] Comment on above: Performed By: #### C BC #### [facility] [address] [place] [address] Dr. Malia Bustamante MANUAL DIFF REQ NO Normal [facility] Comment on above: Performed By: #### C BC #### [facility] [address] [place] [address] Dr. Malia Bustamante MCH (RBC) [Entitic mass] 32.0 pg Normal 26.7-34.0 [facility] Comment on above: Performed By: #### C BC #### [facility] [address] [place] [address] Dr. Malia Bustamante MCHC (RBC) [Mass/Vol] 32.9 g/dL Normal 29.9-35.2 [facility] Comment on above: Performed By: #### C BC #### [facility] [address] [place] [address] Dr. Malia Bustamante MCV (RBC) [Entitic vol] 97.2 fL Normal 81.0-99.0 [facility] Comment on above: Performed By: #### C BC #### [facility] [address] [place] [address] Dr. Malia Bustamante MONO # 0.5 103/ul Normal 0.3-0.8 [facility] Comment on above: Performed By: #### C BC #### [facility] [address] [place] [address] Dr. Malia Bustamante Monocytes/100 WBC (Bld) 7.3 % Normal 1.7-12.0 [facility] Comment on above: Performed By: #### C BC #### [facility] [address] [place] [address] Dr. Malia Bustamante NEUT # 5.2 103/ul Normal 1.4-6.5 [facility] Comment on above: Performed By: #### C BC #### [facility] [address] [place] [address] Dr. Malia Bustamante Neutrophils/100 WBC (Bld) 79.9 % Critically high 43.0-75.0 [facility] Comment on above: Performed By: #### C BC #### [facility] [address] [address] [address] Malia Bustamante Platelet mean volume (Bld) [Entitic vol] 11.4 fL Normal 9.5-13.5 [facility] Comment on above: Performed By: #### C BC #### [facility] [address] [address] [address] Malia Bustamante PLT 198 103/ul Normal 150-450 [facility] Comment on above: Performed By: #### C BC #### [facility] [address] [address] [address] Malia Bustamante RBC 3.22 106/ul Critically low 4.20-5.40 [facility] Comment on above: Performed By: #### C BC #### [facility] [address] [address] [address] Malia Bustamante WBC 6.4 103/ul Normal 4.0-11.0 [facility] Comment on above: Performed By: #### C BC #### [facility] [address] [address] [address] Malia Bustamante FREE THYROXINE INDEX T7on FTI 3.26 Normal 1.30-4.50 [facility] Comment on above: Performed By: #### L IPID, CMP, TSH, T7, BNP #### [facility] [address] [address] [address] Malia Bustamante T3U 35.0 % Normal 30.0-39.0 [facility] Comment on above: Performed By: #### L IPID, CMP, TSH, T7, BNP #### [facility] [address] [address] [address] Malia Bustamante T4 [Mass/Vol] 9.30 ug/dL Normal 4.80-13.90 [facility] Comment on above: Performed By: #### L IPID, CMP, TSH, T7, BNP #### [facility] [address] [address] [address] Malia Bustamante GLYCOHEMOGLOBIN A1Con 2022 ADA RECOMMENDATION SEE BELOW Normal [facility] Comment on above: Result Comment: ADA RECOMMENDED LIMIT 4.0 - 6.0 ADA THERAPEUTIC TARGET < 7.0 ACTION SUGGESTED > 7.0 Performed By: #### A 1C #### [facility] [address] [address] [address] Malia Bustamante Glucose [Mass/Vol] 97 mg/dL Normal [facility] Comment on above: Performed By: #### A 1C #### [facility] [address] [address] [address] Malia Bustamante HbA1c (Bld) [Mass fraction] 5.0 % Normal 4.5-6.2 [facility] Comment on above: Performed By: #### A 1C #### [facility] [address] [address] [address] Malia Bustamante IRONon 10-29-2022 Iron [Mass/Vol] 78.0 ug/dL Normal 50.0-170.0 [facility] Comment on above: Performed By: #### I KUN BLUE ####[facility] [address] [address]Dr. Malia Bustamante LIPID PROFILEon 10-29-2022 CHOL-HDL RATIO NORM SEE BELOW Normal [facility] Comment on above: Result Comment: 3.3 - 4.4 LOW RISK 4.4 - 7.1 AVERAGE RISK 7.1 - 11.0 MODERATE RISK >11.0 HIGH RISK Performed By: #### L IPID, CMP, TSH, T7, BNP #### [facility] [address] [address] [address] Malia Bustamante Cholesterol [Mass/Vol] 131 mg/dL Normal <=200 [facility] Comment on above: Performed By: #### L IPID, CMP, TSH, T7, BNP #### [facility] [address] [address] [address] Malia Bustamante Cholesterol in HDL [Mass/Vol] 51 mg/dL Normal 40-60 [facility] Comment on above: Performed By: #### L IPID, CMP, TSH, T7, BNP #### [facility] [address] [address] [address] Malia Bustamante Cholesterol in LDL [Mass/Vol] 59.0 mg/dL Normal [facility] Comment on above: Performed By: #### L IPID, CMP, TSH, T7, BNP #### [facility] [address] [address] [address] Malia Bustamante Cholesterol.total/C holesterol in HDL [Mass ratio] 2.6 {ratio} Normal [facility] Comment on above: Performed By: #### L IPID, CMP, TSH, T7, BNP #### [facility] [address] [address] [address] Malia Bustamante HDL NORMAL > or = 60 mg/dl - LO W CARDIOVASCULAR RISK <40 mg/dl - HIGH CARDIOVASCULAR RISK Normal [facility] Comment on above: Performed By: #### L IPID, CMP, TSH, T7, BNP #### [facility] [address] [address] [address] Malia Bustamante LDL CALC NORMAL SEE BELOW Normal [facility] Comment on above: Result Comment: <100 mg/dl OPTIMAL 100 - 129 mg/dl NEAR OR ABOVE OPTIMAL 130 - 159 mg/dl BORDERLINE HIGH 160 - 189 mg/dl HIGH >190 mg/dl VERY HIGH Performed By: #### L IPID, CMP, TSH, T7, BNP #### [facility] [address] [address] [address] Malia Bustamante Triglyceride [Mass/Vol] 105 mg/dL Normal <=150 [facility] Comment on above: Performed By: #### L IPID, CMP, TSH, T7, BNP #### [facility] [address] [address] [address] Malia Bustamante VLDL CALC 21.0 mg/dL Normal [facility] Comment on above: Performed By: #### L IPID, CMP, TSH, T7, BNP #### [facility] [address] [address] [address] Malia Bustamante PROF 14(COMP METB)on 023 Albumin [Mass/Vol] 3.8 g/dL Normal 3.4-5.0 [facility] Comment on above: Performed By: #### L IPID, CMP, TSH, T7, BNP #### [facility] [address] [address] [address] Malia Bustamante Albumin/Globulin [Mass ratio] 1.2 {ratio} Normal [facility] Comment on above: Performed By: #### L IPID, CMP, TSH, T7, BNP #### [facility] [address] [place] [address] Dr. Malia Bustamante ALP [Catalytic activity/Vol] 53 U/L Normal 46-116 [facility] Comment on above: Performed By: #### L IPID, CMP, TSH, T7, BNP #### [facility] [address] [place] [address] Dr. Malia Bustamante ALT [Catalytic activity/Vol] 16 U/L Normal 14-59 [facility] Comment on above: Performed By: #### L IPID, CMP, TSH, T7, BNP #### [facility] [address] [place] [address] Dr. Malia Bustamante Anion gap [Moles/Vol] 15.0 mmol/L Normal [facility] Comment on above: Performed By: #### L IPID, CMP, TSH, T7, BNP #### [facility] [address] [place] [address] Dr. Malia Bustamante AST [Catalytic activity/Vol] 18 U/L Normal 15-37 [facility] Comment on above: Performed By: #### L IPID, CMP, TSH, T7, BNP #### [facility] [address] [place] [address] Dr. Malia Bustamante Bilirubin [Mass/Vol] 0.4 mg/dL Normal 0.2-1.0 [facility] Comment on above: Performed By: #### L IPID, CMP, TSH, T7, BNP #### [facility] [address] [place] [address] Dr. Malia Bustamante Calcium [Mass/Vol] 10.3 mg/dL Critically high 8.5-10.[address] [facility] Comment on above: Performed By: #### L IPID, CMP, TSH, T7, BNP #### [facility] [address] [place] [address] Dr. Malia Bustamante Chloride [Moles/Vol] 110 mmol/L Critically high 98-107 [facility] Comment on above: Performed By: #### L IPID, CMP, TSH, T7, BNP #### [facility] [address] [address] [address] Malia Bustamante CO2 [Moles/Vol] 21.6 mmol/L Normal 21.0-32.0 [facility] Comment on above: Performed By: #### L IPID, CMP, TSH, T7, BNP #### [facility] [address] [place] [address] Dr. Malia Bustamante Creatinine [Mass/Vol] 1.53 mg/dL Critically high 0.55-1.02 [facility] Comment on above: Performed By: #### L IPID, CMP, TSH, T7, BNP #### [facility] [address] [place] [address] Dr. Malia Bustamante EGFR-AF LATVIAN 40 mL/min/1.73m2 Critically low >=60 [facility] Comment on above: Performed By: #### L IPID, CMP, TSH, T7, BNP #### [facility] [address] [place] [address] Dr. Malia Bustamante EGFR-NON AF LATVIAN 33 mL/min/1.73m2 Critically low >=60 [facility] Comment on above: Performed By: #### L IPID, CMP, TSH, T7, BNP #### [facility] [address] [place] [address] Dr. Malia Bustamante Globulin (S) [Mass/Vol] 3.2 g/dL Normal [facility] Comment on above: Performed By: #### L IPID, CMP, TSH, T7, BNP #### [facility] [address] [place] [address] Dr. Malia Bustamante Glucose [Mass/Vol] 106 mg/dL Normal 74-106 [facility] Comment on above: Performed By: #### L IPID, CMP, TSH, T7, BNP #### [facility] [address] [address] [address] Malia Bustamante Potassium [Moles/Vol] 4.6 mmol/L Normal 3.5-5.1 [facility] Comment on above: Performed By: #### L IPID, CMP, TSH, T7, BNP #### [facility] [address] [address] [address] Malia Bustamante Protein [Mass/Vol] 7.0 g/dL Normal 6.4-8.2 [facility] Comment on above: Performed By: #### L IPID, CMP, TSH, T7, BNP #### [facility] [address] [place] [address] Dr. Malia Bustamante Sodium [Moles/Vol] 142 mmol/L Normal 136-145 [facility] Comment on above: Performed By: #### L IPID, CMP, TSH, T7, BNP #### [facility] [address] [place] [address] Dr. Malia Bustamante Urea nitrogen [Mass/Vol] 38.0 mg/dL Critically high 7.0-18.0 [facility] Comment on above: Performed By: #### L IPID, CMP, TSH, T7, BNP #### [facility] [address] [place] [address] Dr. Malia Bustamante Urea nitrogen/Creatinine [Mass ratio] 24.8 mg/mg Normal [facility] Comment on above: Performed By: #### L IPID, CMP, TSH, T7, BNP #### [facility] [address] [place] [address] Dr. Malia Bustamante TSHon 10-29-2022 TSH 2.124 uIU/mL Normal 0.358-3.740 [facility] Comment on above: Performed By: #### L IPID, CMP, TSH, T7, BNP #### [facility] [address] [place] [address] Dr. Malia Bustamante VITAMIN D 25 OHon 10-29-2022 VIT D 25-OH 69.6 ng/mL Normal [facility] Comment on above: Performed By: #### Kaylie BLUE VITAD ####[facility] [address] [address]Dr. Malia Bustamante VIT D RANGES SEE BELOW Normal [facility] Comment on above: Result Comment: <20 ng/mL Vit D deficient 20 - <30 ng/mL Vit D insufficient 30 - 100 ng/mL Vit D sufficient >100 ng/mL Potential Toxicity Performed By: #### I MIRZA, VITAD ####[facility] [address] [address]Dr. Malia Bustamante CALCIUMon 09-05-2022 Calcium [Mass/Vol] 10.5 mg/dL Critically high 8.5-10.[address] [facility] Comment on above: Performed By: #### C Marb[place], CREA ####[facility] [address] [place], [place] [address]Dr. Malia Bustamante CREATININEon 09-05-2022 Creatinine [Mass/Vol] 1.60 mg/dL Critically high 0.55-1.02 [facility] Comment on above: Performed By: #### C Marbella, CREA ####[facility] [address] [address]Dr. Malia Bustamante EGFR-AF LATVIAN 38 mL/min/1.73m2 Critically low >=60 [facility] Comment on above: Performed By: #### C Marbella, CREA ####[facility] [address] [address]Dr. Malia Bustamante EGFR-NON AF LATVIAN 31 mL/min/1.73m2 Critically low >=60 [facility] Comment on above: Performed By: #### C A, CREA ####[facility] [address] [address]Dr. Malia Bustamante MG MAMM SCREEN 3D JUAN JOSE CADon 05-25-2022 MG MAMM SCREEN 3D JUAN JOSE CAD Patient: LIZABETH MONTANEZ Exam Date: 05/25/2022 : 1945 Gender:F Ordering : DR ISAK BONE . Admission #: [id number] Family : Order #: [id number] CLICK HERE TO VIEW EXAM RADIOLOGY REPORT [...] breast cancer at age 61. LOCATION: [facility] BREAST COMPOSITION: Heterogeneously dense,which may obscure [...] M.D. on 05/25/2022 at 14:19 Normal [facility] Encounters Encounter Date Encounter Type Care Provider Facility Start: 11-17-2024 End: 11-17-2024 ambulatory [facility] Start: 08-13-2024 End: 08-13-2024 ambulatory [facility] Start: 08-13-2024 ambulatory [facility] Start: 05-15-2024 End: 05-15-2024 ambulatory [facility] Start: 03-12-2024 End: 03-12-2024 ambulatory [facility] Start: 03-02-2024 End: 03-02-2024 ambulatory [facility] Start: 02-06-2024 ambulatory [facility] Start: 01-24-2024 Evaluation and manag ement of inpatient [facility] Start: 01-24-2024 End: 01-30-2024 Evaluation and management of inpatient [facility] Start: 01-16-2024 End: 01-16-2024 ambulatory [facility] Start: 01-16-2024 Encounter for preprocedural laboratory examination [facility] Start: 01-07-2024 End: 01-07-2024 [facility]: 11-28-2023 End: 11-28-2023 ambulatory [facility] Start: 11-28-2023 End: 11-28-2023 ambulatory [facility] Start: 02-27-[address] ISAK BONE . Facili ty:[facility] Start: 12-28-2022 Encounter for other preprocedural examination YENI UGALDE [facility] Start: 12-26-2022 End: 12-27-2022 ambulatory YENI UGALDE [...] ISAK BONE . Facility:[facility] Start: 10-28-2017 Ambulatory [facility] Start: 06-06-2017 End: 06-07-2017 Ambulatory DEFAULT PHYSICIAN Facility:[facility] Procedures Date Procedure Procedure Detail Performing Clinician Start: 05-15-2024 Follow-up visit Follow-up YENI UGALDE Payers Date Payer Category Payer Medicare [id number] 1958 Self-pay 1945 Unknown [id number] 2.16.84 [id number] 1945 Unknown [id number] 2.16.84 [id number] 1945 Unknown [id number] 2.16.84 [id number] 1945 Unknown [id number] 2.16.84 [id number] 1945 Unknown [id number] 2.16.84 [id number] 1945 Unknown [id number] 2.16.84 [id number] 1945 Unknown [id number] 2.16.84 [id number] 1945 Unknown [id number] 2.16.84 [id number] 1945 Unknown [id number] 2.16.84 [id number] Unknown Clinical Notes 11-28-2023 to 11-17-2024 Note [...] provided. Patient verbalizes understanding Yeni Ugalde MD [facility] 08-13-2024 Note Orthopedic Surgery Subjective 01/24/2024 Total [...] straightens out her leg and moves it [id number] she is able to stand up without [...] be an additional personal documentation from me. [facility] 05-15-2024 Note [facility] UTP CARDIOLOGY PROGR ESS [...] provided. Patient verbalizes understanding Yeni Ugalde MD [facility] 03-12-2024 Note Orthopedic Surgery Subjective 01/24/2024 Total [...] ensure accurate documentation. Additional Comments: none Mynor [facility] 02-06-2024 Note Orthopedic Surgery Subjective 01/24/2024 [...] be an additional personal documentation from me. [facility] 01-30-2024 Note Physical Therapy Physical Therapy Treatment [...] T-Score: 18 - (more content not included)... [facility] 01-30-2024 Note ------ Attestation signed by Mynor [...] Ruslan Ortez MD Orthopaedic Surgery, PGY-V 01/30/2024 [facility] 01-30-2024 Note Followed up with pt on SNF vs. HHC and pt decided to discharge home today w/ HHC. Requested [facility], referral sent. UPDATE 11:10AM- [facility] has accepted. Sent final AVS. [facility] 01-30-2024 Note Occupational Therapy Occupational Therapy Treatment [...] in chair at [facility] OT Discharge Recommendation Nursing Home Facility vs home with assist OT Equipment [...] change brief. Pt has sock aid and garment liner at home to use with LB dressing [...] to complete g (more content not included)... [facility] 01-29-2024 Note Discharge Planning U pdate OTM team notified that IPR placement was denied. I (social service liaison) along with C met with patient bedside to discuss discharge planning. Patient states she is feeling good and believes she should be able to return home. We took the time to explain SNF & HHC to patient. She reports she has a history of HHC through [facility]. She was encouraged to think about the direction she would like to go and floor social service liaison will follow up tomorrow. She showed understanding and was agreeable. She was also provided a SNF list to review. After today's conversation, it appears that patient is leaning towards going home, with HHC assistance. New discharge disposition: HHC vs. SNF [facility] 01-29-2024 Note Sent updates to [facility] IPR and awaiting pre-cert which was started on 01/26. [facility] 01-29-2024 Note GIM Inpatient Progre ss Note [...] , ABGPO2 , ABGHCO3 , ABGBASEDEFIC , [id number] , ABGOXYGENSOU No lab exists for component: [...] and Entresto. Patient can follow-up with her strategic marketing associate to have these resumed in the future if necessary. Discharge planning to [facility] SHILPI STEINER MD, PGY-2, DEPARTMENT OF INTERNAL M (more content not included)... [facility] 01-28-2024 Note ------ Attestation signed by Landry [...] Montanez Age - 78 y.[facility]. [facility] 1945 [id number] Date of Admission - 01/24/2024 5:39 AM [...] , ABGPO2 , ABGHCO3 , ABGBASEDEFIC , [id number] , ABGOXYGENSOU No lab exists for component: [...] A-fib (on EQ) (more content not included)... [facility] 01-28-2024 Note Physical Therapy Physical Therapy Treatment [...] Help from ano (more content not included)... [facility] 01-28-2024 Note Occupational Therapy Occupational Therapy Treatment [...] at [facility] Objective 2 OT Discharge Recommendation Nursing Home Facility OT Equipment Recommendations TBD General Pain [...] to recliner with hands on for safety. [employer] notes pt requires increased time. No LOB [...] with no assistance (more content not included)... [facility] 01-27-2024 Note DISCHARGE PLANNING U ALEE Lott (social service liaison) spoke to admissions team at [facility]. They confirmed that they submitted for insurance authorization. Updates sent via [employer]. Discharge barriers: medical readiness/stability, insurance authorization [facility] 01-27-2024 Note Physical Therapy Physical Therapy Treatment [...] Hyponatremia Hypomagnesemia Stage 4 chronic kidney disease ([facility]/HCC) Objective General Visit Information: PT Last Visit [...] Assistance 2: Conta (more content not included)... [facility] 01-27-2024 Note ------ Attestation signed by Isak [...] Montanez Age - 78 y.[facility]. [facility] 1945 [id number] Date of Admission - 01/24/2024 5:39 AM [...] , ABGPO2 , ABGHCO3 , ABGBASEDEFIC , [id number] , ABGOXYGENSOU No lab exists for component: [...] Mild hyponatremia, likel (more content not included)... [facility] 01-27-2024 Note Occupational Therapy Occupational Therapy Treatment Note Patient Name: Lizabeth Montanez Patient Date of : 1945 Today's Date: 01/27/24 Time in: 1022 Time Out: 1120 Total Time: 58 Active Ambulatory Problems Diagnosis Date Noted Chronic atrial fibrillation (CMS/HCC) 03/09/2008 Disorder of cardiovascular system 03/15/2008 Left ventricular hypertrophy 03/09/2008 Obesity 03/24/2010 Palpitations 08/18/2013 Pulmonary hypertension ([facility]/HCC) 06/15/2013 Warfarin therapy started 03/23/2008 Nonrheumatic mitral valve regurgitation 11/07/2022 Abnormal stress test 12/20/2022 Osteoarthritis of knee 04/16/2023 S/P total knee arthroplasty, left 07/12/2023 Hx of total knee arthroplasty, left 07/27/2023 COVID-19 09/13/2023 Right knee pain 12/07/2023 Resolved Ambulatory Problems Diagnosis Date Noted No Resolved Ambulatory Problems Past Medical History: Diagnosis Date Atrial fibrillation ([facility]) Hypertension OA (osteoarthritis) PONV (postoperative nausea and vomiting) OT Received On 01/27/24 Subjective I had my other knee done in June and its doing great! Objective 1 Pt asked to return to bed at [facility] (Upon arrival pt was up in chair) Objective 2 OT Discharge Recommendation Nursing Home Facility OT Equipment Recommendations TBD General Pain [...] 01/25/24 [place] (more content not included)... [facility] 01-26-2024 Note Followed up with pt on IPR decision. [facility]able [facility] Advised pt of referral/pre-cert process and also warned of potential transport costs going that far. Pt stated she may elect to have family transport if able. [facility] 01-26-2024 Note ------ Attestation signed by Isak [...] - 78 y.o. - 1945 N - [id number] Date of Admission - 01/24/2024 5:39 AM [...] , ABGPO2 , ABGHCO3 , ABGBASEDEFIC , [id number] , ABGOXYGENSOU No lab exists for component: [...] EQ) HFpEF Mi (more content not included)... 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 [facility] 01-26-2024 Note ------ Attestation signed by Mynor [...] Le MD Orthopaedic Surgery, PGY-1 Ortho Pager [phone] 01/26/24 6:44 AM I am available via [employer] 6a-6p. May contact the on-call resident with any concerns via the Orthopaedic pager at any time. 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 Pt stated she would like to discuss this with her family tonight before making a decision. Advised her we will follow up tomorrow. [facility] 01-25-2024 Note Occupational Therapy Occupational Therapy Evaluation [...] a 78 y.o. female who presents to [facility] for R TKA which was performed on [...] Level of Function Prior Function Level of [place]: Independent with ADLs and functional transfers, Independent [...] Eating meals?: None (Independent) Total Score OT [facility]: 17 Assessment/Plan OT Assessment OT Impairments: Decre (more content not included)... [facility] 01-25-2024 Note Physical Therapy Rosemary zavala Patient Name: Lizabeth Montanez Today's Date: 01/25/2024 Admit Date: 01/24/2024 Time In: 8:47 AM Time Out: 9:09 AM Cumulative minutes: 22 minutes Billed minutes: 22 minutes History of present illness Lizabeth Montanez is a 78 y.o. female who presents to [facility] for R TKA which was performed on [...] Help from an (more content not included)... [facility] 01-25-2024 Note ------ Attestation signed by Mynor [...] Le MD Orthopaedic Surgery, PGY-1 Ortho Pager [phone] 01/25/24 8:16 AM I am available via [facility] [employer] 6a-6p. May contact the on-call resident with any concerns via the Orthopaedic pager at any time. [facility] 01-24-2024 Note Patient: Lizabeth nicolas Procedure Summary Date: 01/24/24 Room / Location: [facility] OPERATING ROOM 02 / [facility] Operating Room Anesthesia Start: 0738 Anesthesia Stop: [...] per anesthesia protocol. No notable events documented. [facility] 01-24-2024 Note Patient: Lizabeth nicolas Procedure Summary Date: 01/24/24 Room / Location: [facility] OPERATING ROOM 02 / [facility] Operating Room Anesthesia Start: 737 Anesthesia Stop: Procedure: TOTAL KNEE ARTHROPLASTY (Right: Knee) Diagnosis: Primary osteoarthritis of right knee (Primary osteoarthritis of right knee [M17.11]) Surgeons: Mynor Gallegos MD Responsible Provider: Wali Chavez MD Anesthesia Type: general ASA Status: 3 Anesthesia Post Transport Note Transport to: PACU O2 Route: room air Patient Monitor: direct observation Transport: uneventful Patient condition is: stable [facility] 01-24-2024 Note Airway Date/Time: 01/24/2024 7:47 AM Urgency: elective General Information and Staff Patient location during procedure: OR Anesthesiologist: Wali Chavez MD Resident/LOCK ASSEMBLER/CAA: RUBENS Dougherty Performed: resident/LOCK ASSEMBLER/CAA Indications and Patient Condition Indications for airway [...] 1 Number of other approaches attempted: 0 [facility] 01-24-2024 Note Patient: Lizabeth nicolas Procedure Information Date/Time: 01/24/24 0730 Procedure: TOTAL KNEE ARTHROPLASTY (Right: Knee) - [facility] [employer] NOTIFIED 01/20 Location: [facility] OPERATING ROOM 02 / [facility] Operating Room Surgeons: Mynor Gallegos MD Relevant [...] Plan discussed with CAA. Additional Equipment Requests [facility] 01-16-2024 Note I met with the jake kingston for pre-operative education and discharge planning prior to her joint replacement surgery. The patient would like to discharge to home following her release from the hospital. But she also stated she may like to go to a rehab if physical therapy recommends she should. She would HHC with [facility] if she discharges home but if she needs a rehab she would like to go to [place]. Patient is aware she will be evaluated after surgery to see if she is safe to discharge home or not. She already has a rolling walker, raised toilet seat and shower chair. [facility] 01-16-2024 Note Orthopedic Surgery Subjective Chief complaint: [...] benefit the patient's ability to complete ADLs. 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 Do not wear perfume, make-up, nail malawian, or lotions on the day of your [...] need to make any changes, please call [phone]. Notify your surgeon if you develop any illness such as a cold, cough, fever, sore throat or vomiting between now and your surgery. Thank you for entrusting us with your care. [facility] Surgical Services Team [facility] 01-07-2024 Note [facility] CARDIOLOGY PROGR ESS NOTE [...] provided. Patient verbalizes understanding Yeni Ugalde MD [facility] 11-28-2023 Note Orthopedic Surgery Subjective Chief complaint: [...] Additional Comments: none Gertrude Alan, MS3 [facility] [employer] 11/28/2023 [facility] Summary Purpose Family History No Family History Records FoundNo Family History Records FoundNo Family History Records FoundNo Family History Records Found Advance Directives No Advanced Directives Records FoundNo Advanced Directives Records FoundNo Advanced Directives Records FoundNo Advanced Directives Records Found Additional Source Comments INFORMATION SOURCE (unrecogn ized section and content) DATE CREATED AUTHOR 03/24/2018 [facility] DATE CREATED AUTHOR AUTHOR'S ORGANIZ ATION 03/26/2018 [facility] DATE CREATED AUTHOR AUTHOR'S ORGANIZ ATION 03/08/2023 [facility] DATE CREATED AUTHOR AUTHOR'S ORGANIZ ATION 11/18/2024 [facility] FOR RECORDS PERTAINING TO PATIENTS WHO ARE [...] BE BASED ON THE PRIMARY CLINICAL RECORDS. [employer] provides no warranty or guarantee of the accuracy or completeness of information in this document.
--- NOTE | 2025-01-03 17:39 | ED.FALL1 ---
HPI HPI - Fall General Chief Complaint: Fall Stated Complaint: FALL Time Seen by Provider: 01/03/25 11:54 Source: patient Mode of arrival: ambulance Limitations: no limitations History of Present Illness HPI Narrative: The patient is 79-year-old female is coming to the ER after she had a fall when she was in the bathroom, patient mentioned that she did not hit her head she just stood up from the toilet seat and apparently her leg buckled mostly in the right knee and she fell forward, she was awake the whole time she did not hit her head and she was not able to stand up she called the EMS where they came and helped her get up and get her over here The patient denies any head injury she denies any loss of consciousness she mentioned that she is here because she wanted to be evaluated for her right knee, she had the knee surgery for replacement in April of last year and apparently since then she had multiple time when she had the knee buckled Related Data Home Medications ?Medication ?Instructions ?Recorded ?Confirmed allopurinol 100 mg tablet 50 mg PO DAILY 01/03/25 01/03/25 apixaban 2.5 mg tablet (Eliquis) 2.5 mg PO Q12H 01/03/25 01/03/25 bisoprolol fumarate 10 mg tablet 10 mg PO DAILY 01/03/25 01/03/25 diltiazem HCl 30 mg tablet 15 mg PO BID 01/03/25 01/03/25 furosemide 40 mg tablet 40 mg PO .QOD 01/03/25 01/03/25 hydralazine 25 mg tablet 25 mg PO Q12H 01/03/25 01/03/25 sacubitril 49 mg-valsartan 51 mg 1 tab PO BID 01/03/25 01/03/25 tablet (Entresto) Allergies Allergy/AdvReac Type Severity Reaction Status Date / Time Penicillins Allergy Unknown Verified 03/08/23 08:19 Opioid HPI Opioid Management Most Recent Pain and Opioid Data: No Data to Display Review of Systems ROS Status of ROS 10 or more systems reviewed and unremarkable except as noted in history and below PFSH PFSH Social History Little interest or pleasure in doing things: not at all Feeling down, depressed, or hopeless: not at all Exam Narrative Exam Narrative: Nurses notes and vital signs reviewed and patient is not hypoxic. General: Well-appearing and in no apparent distress. Skin: Warm, dry, no pallor noted. No rash. Head: Normocephalic, atraumatic. Neck: Supple, non-tender. Cardiovascular: Regular Rate and Rhythm without murmur, gallop or rub. Respiratory: No accessory muscle use or respiratory distress. Lungs are clear to auscultation, no wheezing, rales or rhonchi Chest Wall: no tenderness Back: No midline thoracic or lumbar vertebral tenderness. No CVA tenderness Musculoskeletal: normal ROM, no calf or popliteal tenderness, no lower extremity edema/swelling , full range of movement of the right knee and some swelling although there is no ecchymosis GI: Abdomen is soft, non-distended. Normal bowel sounds. No masses appreciated. No tenderness to palpation. No rebound, guarding, or rigidity noted. Neurological: A&O x4. No cranial nerve dysfunction observed. . Moves all extremities. Sensation intact. Psychiatric: Cooperative and interactive. Normal mood and affect. Constitutional Vital Signs, click to edit/add: Last Vital Signs Temp 97.5 F L 01/03/25 11:38 Pulse 64 01/03/25 11:38 Resp 18 01/03/25 11:38 BP 172/94 H 01/03/25 11:38 Pulse Ox 97 01/03/25 11:38 O2 Del Method Room Air 01/03/25 11:38 Course Vital Signs Vital signs: Vital Signs Temperature 97.5 F L 01/03/25 11:38 Pulse Rate 64 01/03/25 11:38 Respiratory Rate 18 01/03/25 11:38 Blood Pressure 172/94 H 01/03/25 11:38 Pulse Oximetry 97 01/03/25 11:38 Oxygen Delivery Method Room Air 01/03/25 11:38 Temperature 97.5 F L 01/03/25 11:38 Pulse Rate 64 01/03/25 11:38 Respiratory Rate 18 01/03/25 11:38 Blood Pressure 172/94 H 01/03/25 11:38 Pulse Oximetry 97 01/03/25 11:38 Oxygen Delivery Method Room Air 01/03/25 11:38 MDM - Fall MDM Narrative Medical decision making narrative: X-ray of the patient's right knee shows some edema which is mostly second contusion but there is no other acute finding It was noted the patient has a complaint of the right knee buckling and that was evaluated by her orthopedic doctor The patient. My evaluation will need more therapy to get better regarding standing up, also recommended that she should need to have higher seat in her toilet, the patient was able to stand up here with no difficulty with a walker in the ER Patient will follow-up with her primary care doctor for further evaluation and possible need for outpatient physical therapy The patient is to follow up with primary care physician in next 2-3 days or to return to the emergency department should any of the signs or symptoms worsen or new symptoms develop. The patient agrees with the following Diagnosis and Treatment plan and the patient will be discharged home. Discharge Plan Discharge Chief Complaint: Fall Clinical Impression: Knee buckling Patient Disposition: Home, Self-Care Time of Disposition Decision: 13:44 Condition: Good Prescriptions / Home Meds: No Action furosemide 40 mg tablet 40 mg PO .QOD hydralazine 25 mg tablet 25 mg PO Q12H allopurinol 100 mg tablet 50 mg PO DAILY bisoprolol fumarate 10 mg tablet 10 mg PO DAILY diltiazem HCl 30 mg tablet 15 mg PO BID Eliquis 2.5 mg tablet 2.5 mg PO Q12H Entresto 49-51 mg tablet 1 tab PO BID Print Language: Upper Sorbian Instructions: Knee Pain (ED) Referrals: Malcolm Bone MD [Primary Care Provider] - 1 week Discharge Date/Time: 01/03/25 13:59
== END 2025-01-03 13:59 | disposition home or self-care (01) ==
PROVIDERS: Emergency Provider Emergency Medicine; PCP Family Medicine
DX: M25.361 Other instability, right knee (principal); Z96.651 Presence of right artificial knee joint
CPT/HCPCS: 73562; 99283

== ENCOUNTER 2025-01-19 10:04 | Outpatient (RCR) | payer MEDICARE, SELFPAY | END 2025-02-20 07:35 | disposition home or self-care (01) | LOC: PT 10:04 | PROVIDERS: PCP Family Medicine; Visit Provider Family Medicine | DX: M17.9 Osteoarthritis of knee, unspecified (principal) | CPT/HCPCS: 97110; 97161; 97530 ==

== ENCOUNTER 2025-05-24 08:03 | Outpatient (OUT) | payer MEDICARE, SELFPAY ==
--- OUTSIDE RECORDS SUMMARY | 2025-04-08 10:24 | XMS_ITS ---
Author Organization [facility] in [place] Address [address] [place] [address] Care Team Providers Care Legal Billing Specialist Name Role Phone Casper Bone Primary Care Provider [phone] REASON FOR VISIT refill Medications Medication SIG (Take, Route, Fr equency, Duration) Notes Start Date End Date Status Allopurinol 100 MG 1/2 tablet Orally On ce a day for 30 days 02/19/2024 Active Encounters Encounter Location Date Provider Diagnosis [facility] [address] [place] [facility] [address] 04/08/2025 Casper Bone Plan Of Treatment Medication Medication Name Sig Start Date Stop Date Notes Allopurinol 100 MG 1/2 tablet Orally On ce a day for 30 days 02/19/2024 Progress Notes * Lizabeth VALENTIN EDOB: 6 (80 yo F)Acc No.[id number]:04/08/2025 Patient: Lizabeth HOOPER :1945 A ge:80 Y S ex:Female Address:[address] [place] [id number] * Refills Refill Allopurinol Tablet, 100 MG, Orally, 30, 1/2 tablet, Once a day, 30 days, Refills=11 * true * Date: Generated for Printi ng/Faxing/eTransmitting on: 0 05/24/2025 08:09 AM EDT
--- OUTSIDE RECORDS SUMMARY | 2025-04-09 07:15 | XMS_ITS ---
Author Organization [facility] in [place] Address [address] [place] [address] Care Team Providers Care Uppers Edge Burnisher Name Role Phone Smitha Casper Primary Care Provider Allergies Allergen (clinical drug ingredient) Drug/Non Drug Allergy documented on EMR Reaction Allergy Type Onset Date Status penicillin V Penicillin V Potassium rash Drug Allergy Active REASON FOR VISIT Telephone call. Needs assessment on N184 Medications Medication SIG (Take, Route, Frequency, Duration) Notes Start Date End Date Status Entresto 49-51 MG TAKE 1 TABLET BY JUSTIN TH TWICE DAILY for 30 Active Magnesium Oxide 400 MG 1 tablet Orally O nce a day for 30 days 02/19/2024 Active Vitamin D3 1000UT QD Active Furosemide 40 MG 1 tablet Orally EVER Y OTHER DAY for 30 days 02/19/2024 Active hydrALAZINE HCl 25 MG 1 tablet with food Orally Twice a day 12/08/2024 Active Eliquis 2.5 MG 1 tablet Orally Twic e a day for 30 days Active Allopurinol 100 MG 1/2 tablet Orally On ce a day for 30 days 02/19/2024 Active Bisoprolol Fumarate 5 MG take 1 tablet b y mouth once daily for 90 days Active Problems Problem Type SNOMED Code ICD Code Onset Dates Problem Status W/U Status Risk Notes Problem Chronic kidney disease, stage 4 (severe) (N18.4) Active confirmed Encounters Encounter Location Date Provider Diagnosis [facility] [address] [place] [address] 04/09/2025 Casper Bone Chronic kidney disease, stage 4 (severe) N18.4 Assessments Encounter Date Diagnosis (ICD Code) Assessment Notes Treatment Notes Treatment Clinical Notes Section Notes 04/09/2025 Chronic kidney disease, stage 4 (severe) (ICD-10 - N18.4) discussed Meds and reviewed labs - looking at labs aned reviewe d diet Plan Of Treatment Treatment Notes Assessment Notes Chronic kidney disease, stage 4 (severe) discussed Meds and reviewed labs - looking at labs aned reviewe d diet Progress Notes * Lizabeth VALENTIN EDOB: 6 (80 yo F)Acc No.[id number]:04/09/2025 TeleMed via [employer] Patient: Lizabeth HOOPER Provider: Radha Bone ([facility])MD :1945 A ge:80 Y S ex:Female Date:04/09/2025 Address:[address] [place], [place] [id number] Check In:11:04 AM ESTCheck O ut:11:58 AM EST Subjective: * Chief Complaints: * T elephone call. Needs assessment on N184 * HPI: G eneral: The patient verbally consented to a TeleHealth encounter and the potential risks involved with a TeleHealth visit (clinical aspects, security considerations, and confidentiality of information) were discussed with the patient. The patient encounter was conducted using a synchronous audio-visual interactive audio telecommunications system called: telephone. Patient is attending the TeleHealth encounter from home. Patient was the only one present in the room. The provider is attending the TeleHealth encounter from their office. Care provided by Telemedicine. Total Time spent during the encounter: 8 min. nop swelling and traking meds - lasix nad entrtesto no CO - no torres no orthopnea. * Active Problem List G47.61 Periodic limb moveme nt disorder Modified On:02/22/2023/U Status:confirmed J01.11 Acute recurrent fron nila sinusitis Modified On:08/20/2023/U Status:confirmed R00.2 Palpitations Modified On:02/22/2023U Status:confirmed I10 Hypertension Modified On:02/27/2023/U Status:confirmed M19.90 Osteoarthritis Modified On:01/09/2024/U Status:confirmed I51.7 Left ventricular hyp ertrophy Modified On:02/22/2023 Status:confirmed M81.0 Osteoporosis Modified On:02/22/2023 Status:confirmed E66.9 Obese Modified On:02/22/2023 Status:confirmed E66.3 Over weight Modified On:02/27/2023 Status:confirmed I25.10 Cardiovascular disea se Modified On:02/27/2023 Status:confirmed Z91.81 At risk for falls Modified On:02/22/2023 Status:confirmed I48.20 Chronic atrial fibri llation Modified On:02/22/2023 Status:confirmed I12.9 Chronic kidney disea se due to hypertension Modified On:02/22/2023 Status:confirmed I27.20 Severe pulmonary hyp ertension Modified On:06/19/2023 Status:confirmed I50.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 Modified On:11/30/2022 Status:confirmed I48.91 Unspecified atrial f ibrillation Modified On:01/27/2023 Status:confirmed I48.91 Atrial fibrillation Modified On:06/19/2023 Status:confirmed M17.9 Knee osteoarthritis Modified On:06/19/2023 Status:confirmed U07.1 COVID-19 Modified On:08/21/2023U Status:confirmed N18.4 Chronic kidney disea se, stage 4 (severe) Modified On:04/09/2025 Status:confirmed * Medical History: * Surgical History: C Section X 3 Tonsillectomy Heart Cath Cath 12/2022left knee replacement 2022Right Knee Replacement 2023 * Hospitalization/Major Diagno stic Procedure: S EE ABOVE * Family History: F ather: 95 yrs, Psychiatric care. M other: 75 yrs, diagnosed with Unspecified heart disease. S ister(s): alive. S on(s): alive. D aughter(s): alive, Rheumatoid Arthritis. 1 sister(s) . 2 son(s) , 1 daughter(s) . . * Medications: T akingAllopurinol 100 MG Tablet 1/2 tablet Orally Once a day Bisoprolol Fumarate 5 MG Tablet take 1 tablet by mouth once daily Eliquis(Apixaban) 2.5 MG Tablet 1 tablet Orally Twice a day Entresto(Sacubitril-Valsartan) 49-51 MG Tablet TAKE 1 TABLET BY MOUTH TWICE DAILY Furosemide 40 MG Tablet 1 tablet Orally EVERY OTHER DAY hydrALAZINE HCl 25 MG Tablet 1 tablet with food Orally Twice a day Magnesium Oxide 400 MG Tablet 1 tablet Orally Once a day Vitamin D3 , Notes to Pharmacist: 1000UT QDMedication List reviewed and reconciled with the patientTaking Allopurinol 100 MG Tablet 1/2 tablet Orally Once a day Taking Bisoprolol Fumarate 5 MG Tablet take 1 tablet by mouth once daily Taking Eliquis(Apixaban) 2.5 MG Tablet 1 tablet Orally Twice a day Taking Entresto(Sacubitril-Valsartan) 49-51 MG Tablet TAKE 1 TABLET BY MOUTH TWICE DAILY Taking Furosemide 40 MG Tablet 1 tablet Orally EVERY OTHER DAY Taking hydrALAZINE HCl 25 MG Tablet 1 tablet with food Orally Twice a day Taking Magnesium Oxide 400 MG Tablet 1 tablet Orally Once a day Taking Vitamin D3 , Notes to Pharmacist: 1000UT QDMedication List reviewed and reconciled with the patient * Allergies: P enicillin V Potassium: rash - Criticality Highno[Allergies Verified] Objective: * Vitals: Assessment: * Assessment: 1. C hronic kidney disease, stage 4 (severe) - N18.4 (Primary) Plan: * Treatment: * Procedure Codes: * * Sign off status: Completed Visit Status: C HK (Check Out) true * Provider: Radha Bone ([facility])MD Date: 0 04/09/2025 Generated for Jeani calvin/Clarence/eTransmitting on: 05/24/2025 08:10 AM EDT History and Physical Notes * HPI (History of Present Illness) Category Sub-Category Detail Notes Category Not es General nop swelling and traking meds - lasix nad entrtesto no CO - no torres no orthopnea
--- OUTSIDE RECORDS SUMMARY | 2025-04-09 07:42 | XMS_ITS ---
Author Organization [facility] in [place] Address [address] [place] [address] Care Team Providers Care Autocad Designer Name Role Phone Casper Bone Primary Care Provider REASON FOR VISIT cardio/echo Encounters Encounter Location Date Provider Diagnosis [facility] [address] [place] [address] 04/09/2025 Casper Bone Plan Of Treatment No Information Progress Notes * VALENTINLizabeth DE LA VEGA EDOB: 6 (80 yo F)Acc No.[id number]:04/09/2025 Patient: Lizabeth HOOPER :1945 A ge:80 Y S ex:Female Address:[address] [place] [phone] * true * Date: Generated for Jeani calvin/Clarence/eTransmitting on: 0 05/24/2025 08:10 AM EDT
--- NOTE | 2025-05-24 08:00 | CA_ITS ---
Patient Name: JELLY MONTANEZ MR#: [id number] : 1945 Exam Date: 05/24/2025 Ordering Doctor: YENI SANTIAGO M.D. ECHOCARDIOGRAM REPORT PROCEDURE: CA ECHO DOPPLER COMPLETE INDICATIONS: Mitral valve regurgitation, hypertension COMPARISON: None. DESCRIPTION: COMPLETE ECHOCARDIOGRAM Real-time transthoracic echocardiography with 2D, M-mode, spectral and color flow Doppler performed. QUALITY: Technical quality was good. LEFT VENTRICLE: Normal chamber size. Mild concentric left ventricular hypertrophy. LV EF: Global ventricular systolic function is normal; visually estimated ejection fraction is 55 to 60%. No significant wall motion abnormalities. DIASTOLIC: Grade III diastolic dysfunction. ATRIAL SEPTUM: Visually appears intact. LEFT ATRIUM: Severe dilatation. RIGHT ATRIUM: Severe dilatation. RIGHT VENTRICLE: Normal chamber size. Normal right ventricular systolic function. TRICUSPID VALVE: Normal mobility and thickness. No stenosis with mild regurgitation. No evidence of pulmonary hypertension. RVSP 29 mmHg MITRAL VALVE: Normal mobility and thickness. No evidence of mitral valve stenosis. Mild mitral annular calcification. Moderate to severe mitral regurgitation. AORTIC VALVE: Normal trileaflet appearance. Mildly calcified aortic valve. Mildly diminished mobility. Doppler velocity suggests mild aortic valve stenosis. DVI 0.4, KELLY 1.5 cm2, Mean 10 mmHg. Mild aortic regurgitation. AORTIC ROOT: Normal diameter and appearance. Ascending aorta is normal in size. PULMONIC VALVE: Normal thickness and mobility. No stenosis. Trivial regurgitation. PERICARDIUM: No evidence of pericardial effusion. IVC: Collapses with inspiration. IVC is normal in size. CONCLUSION: 1. Global left ventricular systolic function is normal; visually estimated ejection fraction is 55 to 60% 2. Normal right ventricular size and systolic function 3. Mild left ventricular hypertrophy 4. Severe biatrial dilatation 5. Mild tricuspid regurgitation 6. Moderate to severe mitral regurgitation 7. Mild aortic valve regurgitation 8. Mild aortic valve stenosis Consider transesophageal echocardiography for evaluation of severity of mitral regurgitation as clinically appropriate Adult Echocardiography Procedure Report Left Ventricle LVEDD (3.7 - 5.6 cm): 4.82 cm LVESD (2.2 - 4.0 cm): 3.64 cm LVIVS thickness (0.6 - 1.2 cm): 1.19 cm LVPW thickness (0.5 - 1.0 cm): 1.17 cm e': 0.10 m/s E - e': 10.46 LVOT Max Gradient: 2.83 mm[Hg] LVOT Area (cm2): 0.84 m/s Peak Velocity (LVOT): 0.84 m/s Mean Velocity (LVOT): 0.50 m/s LVOT Diameter 2.27 cm Left Ventricular Ejection Fraction: 55.07 % Left Atrium LA Volume Index (2D A2C): 123.47 ml/m2 Left Atrium Systolic Dimension: 5.76 cm Mitral Valve MV E to A Ratio: 3.46 Mitral Valve A-Wave Peak Velocity: 0.30 m/s Mitral Valve E-Wave Peak Velocity: 1.03 m/s Right Ventricle Aorta AO Root Diam: 2.78 cm Ascending Ao Diam: 2.97 cm Aortic Valve AoV Area (Peak Richar): 1.52 cm2, 1.52 cm2 AoV Area (VTI): 1.50 cm2, 1.50 cm2 Deceleration [place]: 1.06 m/s2 Pressure Half-Time: 1.21 s Peak Velocity(Antegrade Flow): 2.24 m/s Peak Gradient(Antegrade Flow): 20.15 mm[Hg] Mean Velocity(Antegrade Flow): 1.50 m/s Mean Gradient(Antegrade Flow): 10.37 mm[Hg] Velocity Time Integral: 50.20 cm Tricuspid Valve Peak Velocity (Regurgitant Flow): 2.23 m/s, 2.55 m/s Pulmonic Valve Peak Velocity: 1.04 m/s Peak Gradient: 3.82 mm[Hg], 4.79 mm[Hg] Right Atrium Dictated by: Radha Poole M.D. on 05/24/2025 at 11:54 Approved by: Radha Poole M.D. on 05/24/2025 at 11:59
--- OUTSIDE RECORDS SUMMARY | 2025-05-24 08:10 | XMS_ITS | CCD ---
Author Organization [facility] Care Team Providers Care Oil Sprayer Name Role Phone PHYSICIAN, DEFAULT Unavailable Unavailable PHYSICIAN, DEFAULT Unavailable Unavailable HOY, ISAK Unavailable Unavailable HOY ., DR PARISI Primary Care Unavailable HOY ., DR PARISI Admitting Unavailable HOY ., DR PARISI Attending Unavailable HOY ., DR PARISI Consulting Unavailable HOY ., DR PARISI Primary Care Unavailable HOY ., DR PARISI Admitting Unavailable HOY ., DR PARISI Attending Unavailable HOY ., DR PARSII Consulting Unavailable HOY ., DR PARISI Primary [...] disease (1 source) Atherosclerotic heart disease of [place] coronary artery without angina pectoris; Translations: [ASHD [place] CA W/O ANGINA PECTORIS] Onset: 10-31-2022 Chronic [...] Range Facility Office Visiton 11-17-2024 Follow-up visit [id number] EduardoMignonabbie Leiva 1945 Provider Department Center 11/17/2024 YENI GARCIA Family History Problem Relation Age of Onset Other Mother Other Mother Heart attack Father's Sister Family Status - Relation Status Age at Mother Father's Sister Level of Service:65936 AL OFFICE/OUTPATIENT ESTABLISHED LOW MDM 20 MIN Normal [facility] Follow-Upon 08-13-2024 Follow-Up [id number] Mignon Montanez 1945 Provider Department Center 08/13/2024 293-MYNOR GALLEGOS MP ORTHO MPORTHO Family History Problem Relation Age of Onset Other Mother Other Mother Heart attack Father's Sister Family Status - Relation Status Age at Mother Father's Sister Level of Service:50269 AL OFFICE/OUTPATIENT ESTABLISHED LOW MDM 20 MIN () Reason for Visit and Comments: Pain [136] - R TKA FOLLOW UP, C/O HAVING PROBLEMS GETTING UP FROM SITTING POSITION Follow-up [538839] - R TKA FOLLOW UP, C/O HAVING PROBLEMS GETTING UP FROM SITTING POSITION Normal [facility] Office Visiton 05-15-2024 Follow-up visit [id number] Mignon Montanez 1945 Date Provider Department Center 05/15/2024 YENI GARCIA Family History Problem Relation Age of Onset Other Mother Other Mother Heart attack Father's Sister Family Status - Relation Status Age at Mother Father's Sister Level of Service:41560 AL OFFICE/OUTPATIENT ESTABLISHED LOW MDM 20 MIN Reason for Visit and Comments: Follow-up [870403] - Follow up Echo Concerns: No cardiac symptoms/concerns [facility] 36on 04-01-2024 36 Regarding echo performed on 03/27/2024: JESSICA Gonzalez MA Echo about the same as previous- with noted mild to mod mitral regurg and mod Aortic valve regurg and normal LV function If she notes worsening SOB, palpitations, weight gain/water retention she needs to call office Spoke with patient and made here aware. She verbalized understanding. Normal [facility] Office Visiton 03-12-2024 Follow-up visit [id number] Mignon Montanez cinthia E 1945 F Date Provider Department Center 03/12/2024 MYNOR SANDOVAL MP [facility] Family History Problem Relation Age of Onset Other Mother Other Mother Heart attack Father's Sister Family Status - Relation Status Age at Mother Father's Sister Level of Service:35823 AL POSTOP FOLLOW UP VISIT RELATED TO ORIGINAL PX Reason for Visit and Comments: Pain [136] - R tka follow up [facility] Office Visiton 02-06-2024 Follow-up visit [id number] Mignon Montanez cinthia E 1945 F Date Provider Department Center 02/06/2024 293MYNOR PIERCE MP ORTHO MPORTHO Family History Problem Relation Age of Onset Other Mother Other Mother Heart attack Father's Sister Family Status - Relation Status Age at Mother Father's Sister Level of Service:76122 AL POSTOP FOLLOW UP VISIT RELATED TO ORIGINAL PX (GC) Reason for Visit and Comments: Pain [136] - 1st post op R TKA Post-op [483] - 1st post op R TKA [facility] 36on 02-03-2024 36 I spoke to the patie nt to see how she is doing after her recent surgery. Ms Montanez stated she is doing well and her pain is manageable with medication. She is taking all the medication she was prescribed at discharge. She denies any redness, drainage or major swelling. She has been working with [facility] physical therapy. She has a post op appointment on February 05 at 8. She had no questions or concerns. [facility] 36 [facility] RN Karmen FRANCIS NOTIFIED NOT TO REMOVE THE DRESSING, HE V/U//[facility] 36on 01-31-2024 36 Anel ISRAEL notified t he nurse of dressing change instructions. I attempted to call the patient to complete a dishcarge follow up call and relay dressing orders but patient;s phone was busy. [facility] 36 Ortega, from [facility] called requesting clarification on patients wound vac instructions. They would like to know if they should remove the vac before her follow up visit. Discharge summary says :Dressing Removal: Do not remove before follow-up visit Follow up visit scheduled for 02/12. Please call with instructions on care. Number to return call [phone]. [facility] BASIC METABOLIC PANELon 05- Anion gap [Moles/Vol] 7 mmol/L Normal 7-20 [facility] Comment on above: Performed By: #### L [id number] ####[facility] ([facility]AKER)[address] [place] [address] Calcium [Mass/Vol] 10.8 mg/dL High 8.6-10.3 [facility] Comment on above: Performed By: #### L [id number] ####[facility] (BEAKER)[address] [place] [address] Chloride [Moles/Vol] 105 mmol/L Normal 98-107 [facility] Comment on above: Performed By: #### L [id number] ####[facility] ([facility])[address] [place] [address] CO2 [Moles/Vol] 27 mmol/L Normal 21-31 [facility] Comment on above: Performed By: #### L [id number] ####[facility] ([facility]AKER)[address] [place] [address] Creatinine [Mass/Vol] 1.45 mg/dL High 0.60-1.20 [facility] Comment on above: Performed By: #### L [id number] ####[facility] [place] [address] GLOMERULAR FILTRATION RATE ML/MIN/1.73 SQ M.PREDICTED 37.2 mL/min/1.73m*2 Low >60.0 [facility] Comment on above: Result Comment: [facility]???s estimated glomerular filtration rate (eGFR) will no [...] of individuals. Performed By: #### L [id number] ####[facility] ([facility])[address] [place] [address] Glucose [Mass/Vol] 88 mg/dL Normal 70-100 [facility] Comment on above: Performed By: #### L [id number] ####[facility] ([facility])[address] [place] [address] Potassium [Moles/Vol] 4.4 mmol/L Normal 3.5-5.1 [facility] Comment on above: Performed By: #### L [id number] ####[facility] ([facility])[address] [place] [address] Sodium [Moles/Vol] 135 mmol/L Low 136-145 [facility] Comment on above: Performed By: #### L [id number] ####[facility] ([facility])[address] [place] [address] Urea nitrogen [Mass/Vol] 45 mg/dL High 7-25 [facility] Comment on above: Performed By: #### L [id number] ####[facility] ([facility])[address] [place] [address] UREA NITROGEN/CREATININE (MASS RATIO) IN SER/PLAS 31.0 Normal [facility] Comment on above: Performed By: #### L [id number] ####[facility] ([facility])[address] [place] [address] CBC WITH AUTO DIFFERENTIALon 01-30-2024 Basophils (Bld) [#/Vol] 0.03 10*3/uL Normal 0.00-0.20 [facility] Comment on above: Performed By: #### L [id number] #### [facility] ([facility]) [address] [place] [address] Basophils/100 WBC (Bld) 0.3 % Normal 0.0-1.0 [facility] Comment on above: Performed By: #### L [id number] #### [facility] ([facility]) [address] [place] [address] Eosinophils (Bld) [#/Vol] 0.19 10*3/uL Normal 0.00-0.50 [facility] Comment on above: Performed By: #### L [id number] #### [facility] ([facility]) [address] [place] [address] Eosinophils/100 WBC (Bld) 2.1 % Normal 0.0-6.0 [facility] Comment on above: Performed By: #### L [id number] #### [facility] ([facility]) [address] [place] [address] Erythrocyte distribution width (RBC) [Ratio] 13.0 % Normal 11.5-15.0 [facility] Comment on above: Performed By: #### L [id number] #### [facility] ([facility]) [address] [place] [address] ERYTHROCYTE MEAN CORPUSCULAR HEMOGLOBIN CONCENTRATION (G/DL) BY AUTOMATED 31.5 g/dL Low 32.0-35.0 [facility] Comment on above: Performed By: #### L [id number] #### [facility] ([facility] [address] [place] [address] Hematocrit (Bld) [Volume fraction] 24.8 % Low 36.0-48.0 [facility] Comment on above: Performed By: #### L [id number] #### [facility] ([facility]) [address] [place] [address] Hemoglobin (Bld) [Mass/Vol] 7.8 g/dL Low 12.0-15.0 [facility] Comment on above: Performed By: #### L [id number] #### [facility] ([facility]) [address] [address] Immature granulocytes (Bld) [#/Vol] 0.09 10*3/uL Normal 0.00-0.20 [facility] Comment on above: Performed By: #### L [id number] #### [facility] ([facility]) [address] [place] [address] Immature granulocytes/100 WBC (Bld) 1.0 % Normal 0.0-1.0 [facility] Comment on above: Performed By: #### L [id number] #### [facility] ([facility] [address] [place] [address] Lymphocytes (Bld) [#/Vol] 0.68 10*3/uL Low 1.20-4.00 [facility] Comment on above: Performed By: #### L [id number] #### [facility] ([facility] [address] [place] [address] Lymphocytes/100 WBC (Bld) 7.5 % Low 20.0-45.0 [facility] Comment on above: Performed By: #### L [id number] #### [facility] ([facility] [address] [address] MCH (RBC) [Entitic mass] 31.3 pg Normal 27.0-33.0 [facility] Comment on above: Performed By: #### L [id number] #### [facility] (BEAKER) [address] [place] [address] MCV (RBC) [Entitic vol] 99.6 fL High 82.0-98.0 [facility] Comment on above: Performed By: #### L [id number] #### [facility] ([facility] [address] [place] [address] Monocytes (Bld) [#/Vol] 1.15 10*3/uL High 0.10-1.00 [facility] Comment on above: Performed By: #### L [id number] #### [facility] ([facility]) [address] [place] [address] Monocytes/100 WBC (Bld) 12.6 % High 5.0-12.0 [facility] Comment on above: Performed By: #### L [id number] #### [facility] ([facility]) [address] [place] [address] Neutrophils (Bld) [#/Vol] 6.97 10*3/uL Normal 1.60-7.60 [facility] Comment on above: Performed By: #### L [id number] #### [facility] ([facility]) [address] [place] [address] Neutrophils/100 WBC (Bld) 76.5 % High 40.0-72.0 [facility] Comment on above: Performed By: #### L [id number] #### [facility] ([facility]) [address] [place] [address] NRBC (PER 100 WBCS) BY AUTOMATED COUNT 0.0 % Normal 0 [facility] Comment on above: Performed By: #### L [id number] #### [facility] ([facility]) [address] [place] [address] PLATELETS (10*3/UL) IN BLOOD AUTOMATED COUNT 245 10*3/uL Normal 150-400 [facility] Comment on above: Performed By: #### L [id number] #### [facility] ([facility]) [address] [place] [address] RBC (Bld) [#/Vol] 2.49 10*6/uL Low 3.80-5.[address] [facility] Comment on above: Performed By: #### L [id number] #### [facility] (BEAKER) [address] [place] [address] WBC (Bld) [#/Vol] 9.11 10*3/uL Normal 4.00-10.[address] [facility] Comment on above: Performed By: #### L [id number] #### [facility] (BEAKER) [address] [place] [address] DSon 01-30-2024 DS --- Attestation signed by Mynor Glalegos MD at 02/20/2024 8:07 AM I did not personally examine the patient. I discussed the case with the resident/fellow Hailee Ortez MD Teaching Physician's Revisions: none Orthopaedic Discharge Summary Patient ID: Lizabeth Montanez [id number] 78 y.o. 1945 Admit date: 01/24/2024 Discharge date and time: 01/30/2024 3:32 PM Admitting Physician: Mynor Gallegos MD Discharge Physician: yMnor Gallegos MD Admission Diagnoses: Primary osteoarthritis of right knee [M17.11] Arthritis of right knee [M17.11] Discharge Diagnoses: Primary osteoarthritis of right knee [M17.11] Arthritis of right knee [M17.11] Surgical procedure: TOTAL KNEE ARTHROPLASTY 77651 - AL ARTHRP KNE CONDYLE&PLATU MEDIAL&LAT COMPARTMENTS Disposition: Home [...] Medications These medications were sent to [facility] - [place], [place] - [address] [place] [address] [place] [address] [facility] [place] [address], [facility] [address] allopurinol 100 mg tablet apixaban 2.5 mg [...] Ruslan Ortez MD in 10-14 days at [facility] [phone] Hospital Course: Lizabeth Montanez was admitted on 01/24/2024 and underwent the aforementioned procedure. Post-operatively, she had adequate pain control and physical therapy to be able to be discharged from the hospital. DVT prophylaxis consisted of Eliquis 2.5 mg BID for 30 days . Signed: Ruslan Ortez MD 7:38 AM 02/10/2024 Normal [facility] 30on 01-29-2024 30 The patient is Moderately [...] by Chrystal Thao RN Outcome: Progressing Normal [facility] 30 Daily Case Managemen t Update Multidisciplinary rounds have been completed. Barriers to Discharge: Pending placement. Received late notification that patients insurance has denied IPR placement. IPR physician completed P2P on behalf of patient and the denial was upheld. Net Developer Architect and SW will be speaking with the patient shortly regarding SNF vs home discharge goal. Diet: Dietary Orders (From admission, onward) Start Ordered 01/29/24 0843 Special Kitchen Request Once Comments: Please send georgian yogurt (peach), grits, honey and milk, chilean muffin. Decaf coffee with cream, diet coke. [...] Answer: postop musculoskeletal care 01/24/24 0743 Normal [facility] BASIC METABOLIC PANELon 05-0 Anion gap [Moles/Vol] 10 mmol/L Normal 7-20 [facility] Comment on above: Performed By: #### L [id number] ####[facility] (BEAKER)[address] [place] [address] Calcium [Mass/Vol] 10.4 mg/dL High 8.6-10.3 [facility] Comment on above: Performed By: #### L [id number] ####[facility] (BEAKER)[address] [place] [address] Chloride [Moles/Vol] 106 mmol/L Normal 98-107 [facility] Comment on above: Performed By: #### L [id number] ####[facility] (BEAKER)[address] [place] [address] CO2 [Moles/Vol] 24 mmol/L Normal 21-31 [facility] Comment on above: Performed By: #### L [id number] ####[facility] (BEAKER)[address] [place] [address] Creatinine [Mass/Vol] 1.52 mg/dL High 0.60-1.20 [facility] Comment on above: Performed By: #### L [id number] ####[facility] ([facility])[address] [place] [address] GLOMERULAR FILTRATION RATE ML/MIN/1.73 SQ M.PREDICTED 35.1 mL/min/1.73m*2 Low >60.0 [facility] Comment on above: Result Comment: [facility]???s estimated glomerular filtration rate (eGFR) will no [...] of individuals. Performed By: #### L [id number] ####[facility] ([facility])[address] [place] [address] Glucose [Mass/Vol] 82 mg/dL Normal 70-100 [facility] Comment on above: Performed By: #### L [id number] ####[facility] ([facility])[address] [place] [address] Potassium [Moles/Vol] 4.4 mmol/L Normal 3.5-5.1 [facility] Comment on above: Performed By: #### L [id number] ####[facility] ([facility])[address] [place] [address] Sodium [Moles/Vol] 136 mmol/L Normal 136-145 [facility] Comment on above: Performed By: #### L [id number] ####[facility] ([facility])[address] [place] [address] Urea nitrogen [Mass/Vol] 46 mg/dL High 7-25 [facility] Comment on above: Performed By: #### L [id number] ####[facility] ([facility] [place] [address] UREA NITROGEN/CREATININE (MASS RATIO) IN SER/PLAS 30.3 Normal [facility] Comment on above: Performed By: #### L [id number] ####[facility] ([facility])[address] [place] [address] CBC WITH AUTO DIFFERENTIALon 01-29-2024 Basophils (Bld) [#/Vol] 0.02 10*3/uL Normal 0.00-0.20 [facility] Comment on above: Performed By: #### L [id number] #### [facility] ([facility]) [address] [place] [address] Basophils/100 WBC (Bld) 0.2 % Normal 0.0-1.0 [facility] Comment on above: Performed By: #### L [id number] #### [facility] ([facility]) [address] [place] [address] Eosinophils (Bld) [#/Vol] 0.10 10*3/uL Normal 0.00-0.50 [facility] Comment on above: Performed By: #### L [id number] #### [facility] ([facility]) [address] [place] [address] Eosinophils/100 WBC (Bld) 1.2 % Normal 0.0-6.0 [facility] Comment on above: Performed By: #### L [id number] #### [facility] ([facility]) [address] [place] [address] Erythrocyte distribution width (RBC) [Ratio] 13.2 % Normal 11.5-15.0 [facility] Comment on above: Performed By: #### L [id number] #### [facility] ([facility]) [address] [place] [address] ERYTHROCYTE MEAN CORPUSCULAR HEMOGLOBIN CONCENTRATION (G/DL) BY AUTOMATED 32.4 g/dL Normal 32.0-35.0 [facility] Comment on above: Performed By: #### L [id number] #### [facility] (BEAKER) [address] [place] [address] Hematocrit (Bld) [Volume fraction] 24.1 % Low 36.0-48.0 [facility] Comment on above: Performed By: #### L [id number] #### [facility] (BEAKER) [address] [place] [address] Hemoglobin (Bld) [Mass/Vol] 7.8 g/dL Low 12.0-15.0 [facility] Comment on above: Performed By: #### L [id number] #### [facility] (BEAKER) [address] [place] [address] Immature granulocytes (Bld) [#/Vol] 0.07 10*3/uL Normal 0.00-0.20 [facility] Comment on above: Performed By: #### L [id number] #### [facility] ([facility]) [address] [place] [address] Immature granulocytes/100 WBC (Bld) 0.8 % Normal 0.0-1.0 [facility] Comment on above: Performed By: #### L [id number] #### [facility] (BE[facility]ER) [address] [place] [address] Lymphocytes (Bld) [#/Vol] 0.77 10*3/uL Low 1.20-4.00 [facility] Comment on above: Performed By: #### L [id number] #### [facility] ([facility]) [address] [place] [address] Lymphocytes/100 WBC (Bld) 8.9 % Low 20.0-45.0 [facility] Comment on above: Performed By: #### L [id number] #### [facility] (BE[facility]ER) [address] [place] [address] MCH (RBC) [Entitic mass] 32.0 pg Normal 27.0-33.0 [facility] Comment on above: Performed By: #### L [id number] #### [facility] ([facility]ER) [address] [place] [address] MCV (RBC) [Entitic vol] 98.8 fL High 82.0-98.0 [facility] Comment on above: Performed By: #### L [id number] #### [facility] ([facility] [address] [place] [address] Monocytes (Bld) [#/Vol] 1.14 10*3/uL High 0.10-1.00 [facility] Comment on above: Performed By: #### L [id number] #### [facility] ([facility]) [address] [place] [address] Monocytes/100 WBC (Bld) 13.2 % High 5.0-12.0 [facility] Comment on above: Performed By: #### L [id number] #### [facility] ([facility]) [address] [place] [address] Neutrophils (Bld) [#/Vol] 6.53 10*3/uL Normal 1.60-7.60 [facility] Comment on above: Performed By: #### L [id number] #### [facility] ([facility]) [address] [place] [address] Neutrophils/100 WBC (Bld) 75.7 % High 40.0-72.0 [facility] Comment on above: Performed By: #### L [id number] #### [facility] ([facility]) [address] [place] [address] NRBC (PER 100 WBCS) BY AUTOMATED COUNT 0.0 % Normal 0 [facility] Comment on above: Performed By: #### L [id number] #### [facility] ([facility]) [address] [place] [address] PLATELETS (10*3/UL) IN BLOOD AUTOMATED COUNT 218 10*3/uL Normal 150-400 [facility] Comment on above: Performed By: #### L [id number] #### [facility] [address] [place] [address] RBC (Bld) [#/Vol] 2.44 10*6/uL Low 3.80-5.[address] [facility] Comment on above: Performed By: #### L [id number] #### [facility] ([facility] [address] [place] [address] WBC (Bld) [#/Vol] 8.63 10*3/uL Normal 4.00-10.[address] [facility] Comment on above: Performed By: #### L [id number] #### [facility] ([facility]) [address] [place] [address] MAGNESIUMon 01-29-2024 Magnesium [Mass/Vol] 1.7 mg/dL Low 1.9-2.7 [facility] Comment on above: Performed By: #### L [id number] ####[facility] ([facility])[address] [place] [address] 30on 01-28-2024 30 The patient is Moderately [...] and maintained or improved Outcome: Progressing Normal [facility] 30 Daily Case Managemen t Update Multidisciplinary rounds have been completed. Barriers to Discharge: Pending medical clearance for discharge. POD #4. Awaiting medical readiness for hospital discharge. [facility] has submitted for insurance authorization. Diet: Dietary [...] Answer: postop musculoskeletal care 01/24/24 0743 Normal [facility] BASIC METABOLIC PANELon 04-3 0 Anion gap [Moles/Vol] 10 mmol/L Normal 7-20 [facility] Comment on above: Performed By: #### L [id number] #### [facility] ([facility]) [address] [place] [address] Calcium [Mass/Vol] 10.3 mg/dL Normal 8.6-10.3 [facility] Comment on above: Performed By: #### L [id number] #### [facility] ([facility]) [address] [place] [address] Chloride [Moles/Vol] 104 mmol/L Normal 98-107 [facility] Comment on above: Performed By: #### L [id number] #### [facility] ([facility]) [address] [place] [address] CO2 [Moles/Vol] 25 mmol/L Normal 21-31 [facility] Comment on above: Performed By: #### L [id number] #### [facility] (BEAKER) [address] [place] [address] Creatinine [Mass/Vol] 1.52 mg/dL High 0.60-1.20 [facility] Comment on above: Performed By: #### L [id number] #### [facility] ([facility]AKER) [address] [place] [address] GLOMERULAR FILTRATION RATE ML/MIN/1.73 SQ M.PREDICTED 35.1 mL/min/1.73m*2 Low >60.0 [facility] Comment on above: Result Comment: [facility]???s estimated glomerular filtration rate (eGFR) will no [...] individuals. Performed By: #### L [id number] #### [facility] ([facility]) [address] [place] [address] Glucose [Mass/Vol] 90 mg/dL Normal 70-100 [facility] Comment on above: Performed By: #### L [id number] #### [facility] ([facility]) [address] [place] [address] Potassium [Moles/Vol] 4.6 mmol/L Normal 3.5-5.1 [facility] Comment on above: Performed By: #### L [id number] #### [facility] ([facility]) [address] [place] [address] Sodium [Moles/Vol] 134 mmol/L Low 136-145 [facility] Comment on above: Performed By: #### L [id number] #### [facility] ([facility]) [address] [place] [address] Urea nitrogen [Mass/Vol] 49 mg/dL High 7-25 [facility] Comment on above: Performed By: #### L [id number] #### [facility] ([facility]) [address] [place] [address] UREA NITROGEN/CREATININE (MASS RATIO) IN SER/PLAS 32.2 Normal [facility] Comment on above: Performed By: #### L [id number] #### [facility] ([facility]) [address] [place] [address] CBC WITH AUTO DIFFERENTIALon 01-28-2024 Basophils (Bld) [#/Vol] 0.02 10*3/uL Normal 0.00-0.20 [facility] Comment on above: Performed By: #### L [id number] #### [facility] ([facility]AKER) [address] [place] [address] Basophils/100 WBC (Bld) 0.2 % Normal 0.0-1.0 [facility] Comment on above: Performed By: #### L [id number] #### [facility] ([facility]AKER) [address] [place] [address] Eosinophils (Bld) [#/Vol] 0.05 10*3/uL Normal 0.00-0.50 [facility] Comment on above: Performed By: #### L [id number] #### [facility] (BEAKER) [address] [place] [address] Eosinophils/100 WBC (Bld) 0.5 % Normal 0.0-6.0 [facility] Comment on above: Performed By: #### L [id number] #### [facility] (BEAKER) [address] [place] [address] Erythrocyte distribution width (RBC) [Ratio] 13.2 % Normal 11.5-15.0 [facility] Comment on above: Performed By: #### L [id number] #### [facility] (AKER) [address] [place] [address] ERYTHROCYTE MEAN CORPUSCULAR HEMOGLOBIN CONCENTRATION (G/DL) BY AUTOMATED 33.2 g/dL Normal 32.0-35.0 [facility] Comment on above: Performed By: #### L [id number] #### [facility] (BEAKER) [address] [place] [address] Hematocrit (Bld) [Volume fraction] 25.3 % Low 36.0-48.0 [facility] Comment on above: Performed By: #### L [id number] #### [facility] (BEAKER) [address] [place] [address] Hemoglobin (Bld) [Mass/Vol] 8.4 g/dL Low 12.0-15.0 [facility] Comment on above: Performed By: #### L [id number] #### [facility] (BEAKER) [address] [place] [address] Immature granulocytes (Bld) [#/Vol] 0.07 10*3/uL Normal 0.00-0.20 [facility] Comment on above: Performed By: #### L [id number] #### [facility] [address] [address] Immature granulocytes/100 WBC (Bld) 0.7 % Normal 0.0-1.0 [facility] Comment on above: Performed By: #### L [id number] #### [facility] ([facility]) [address] [place] [address] Lymphocytes (Bld) [#/Vol] 0.67 10*3/uL Low 1.20-4.00 [facility] Comment on above: Performed By: #### L [id number] #### [facility] ([facility]) [address] [place] [address] Lymphocytes/100 WBC (Bld) 7.1 % Low 20.0-45.0 [facility] Comment on above: Performed By: #### L [id number] #### [facility] ([facility]) [address] [place] [address] MCH (RBC) [Entitic mass] 31.5 pg Normal 27.0-33.0 [facility] Comment on above: Performed By: #### L [id number] #### [facility] ([facility]) [address] [place] [address] MCV (RBC) [Entitic vol] 94.8 fL Normal 82.0-98.0 [facility] Comment on above: Performed By: #### L [id number] #### [facility] ([facility]) [address] [place] [address] Monocytes (Bld) [#/Vol] 1.18 10*3/uL High 0.10-1.00 [facility] Comment on above: Performed By: #### L [id number] #### [facility] (BEAKER) [address] [place] [address] Monocytes/100 WBC (Bld) 12.5 % High 5.0-12.0 [facility] Comment on above: Performed By: #### L [id number] #### [facility] ([facility]) [address] [place] [address] Neutrophils (Bld) [#/Vol] 7.47 10*3/uL Normal 1.60-7.60 [facility] Comment on above: Performed By: #### L [id number] #### [facility] ([facility]) [address] [place] [address] Neutrophils/100 WBC (Bld) 79.0 % High 40.0-72.0 [facility] Comment on above: Performed By: #### L [id number] #### [facility] ([facility]) [address] [place] [address] NRBC (PER 100 WBCS) BY AUTOMATED COUNT 0.0 % Normal 0 [facility] Comment on above: Performed By: #### L [id number] #### [facility] ([facility]) [address] [place] [address] PLATELETS (10*3/UL) IN BLOOD AUTOMATED COUNT 197 10*3/uL Normal 150-400 [facility] Comment on above: Performed By: #### L [id number] #### [facility] ([facility]) [address] [place] [address] RBC (Bld) [#/Vol] 2.67 10*6/uL Low 3.80-5.[address] [facility] Comment on above: Performed By: #### L [id number] #### [facility] ([facility]) [address] [place] [address] WBC (Bld) [#/Vol] 9.46 10*3/uL Normal 4.00-10.[address] [facility] Comment on above: Performed By: #### L [id number] #### [facility] ([facility]) [address] [place] [address] 30on 01-27-2024 30 The patient is Moderately [...] and maintained or improved Outcome: Progressing Normal [facility] 30 Daily Case Managemen t Update Multidisciplinary rounds have been completed. Barriers to Discharge: Pending medical clearance for discharge. Medicine service was consulted for bradycardia. Medication adjustments have been made. Currently monitoring renal function, but will likely be medically ready for discharge soon. Patient is planning to go to [facility] when medically ready for discharge. [facility] has submitted for insurance pre-certification. Diet: Dietary [...] Answer: postop musculoskeletal care 01/24/24 0743 Normal [facility] BASIC METABOLIC PANELon - Anion gap [Moles/Vol] 10 mmol/L Normal 7-20 [facility] Comment on above: Performed By: #### L [id number] #### [facility] , Calcium [Mass/Vol] 10.1 mg/dL Normal 8.6-10.3 [facility] Comment on above: Performed By: #### L [id number] #### [facility] , Chloride [Moles/Vol] 106 mmol/L Normal 98-107 [facility] Comment on above: Performed By: #### L [id number] #### [facility] , CO2 [Moles/Vol] 24 mmol/L Normal 21-31 [facility] Comment on above: Performed By: #### L [id number] #### [facility] , Creatinine [Mass/Vol] 1.74 mg/dL High 0.60-1.20 [facility] Comment on above: Performed By: #### L [id number] #### [facility] , GLOMERULAR FILTRATION RATE ML/MIN/1.73 SQ M.PREDICTED 29.9 mL/min/1.73m*2 Low >60.0 [facility] Comment on above: Result Comment: [facility]???s estimated glomerular filtration rate (eGFR) will no [...] individuals. Performed By: #### L [id number] #### [facility] , Glucose [Mass/Vol] 87 mg/dL Normal 70-100 [facility] Comment on above: Performed By: #### L [id number] #### [facility] , Potassium [Moles/Vol] 4.4 mmol/L Normal 3.5-5.1 [facility] Comment on above: Performed By: #### L [id number] #### [facility] , Sodium [Moles/Vol] 136 mmol/L Normal 136-145 [facility] Comment on above: Performed By: #### L [id number] #### [facility] , Urea nitrogen [Mass/Vol] 58 mg/dL High 7-25 [facility] Comment on above: Performed By: #### L [id number] #### [facility] , UREA NITROGEN/CREATININE (MASS RATIO) IN SER/PLAS 33.3 Normal [facility] Comment on above: Performed By: #### L [id number] #### [facility] , CBC WITH AUTO DIFFERENTIALon 01-27-2024 Basophils (Bld) [#/Vol] 0.01 10*3/uL Normal 0.00-0.20 [facility] Comment on above: Performed By: #### L [id number] #### [facility] [address] [place] [address] Basophils/100 WBC (Bld) 0.1 % Normal 0.0-1.0 [facility] Comment on above: Performed By: #### L [id number] #### [facility] ([facility]) [address] [place] [address] Eosinophils (Bld) [#/Vol] 0.07 10*3/uL Normal 0.00-0.50 [facility] Comment on above: Performed By: #### L [id number] #### [facility] ([facility] [address] [place] [address] Eosinophils/100 WBC (Bld) 0.8 % Normal 0.0-6.0 [facility] Comment on above: Performed By: #### L [id number] #### [facility] (BEAKER) [address] [place] [address] Erythrocyte distribution width (RBC) [Ratio] 13.4 % Normal 11.5-15.0 [facility] Comment on above: Performed By: #### L [id number] #### [facility] ([facility] [address] [place] [address] ERYTHROCYTE MEAN CORPUSCULAR HEMOGLOBIN CONCENTRATION (G/DL) BY AUTOMATED 32.4 g/dL Normal 32.0-35.0 [facility] Comment on above: Performed By: #### L [id number] #### [facility] (BEAKER) [address] [place] [address] Hematocrit (Bld) [Volume fraction] 25.3 % Low 36.0-48.0 [facility] Comment on above: Performed By: #### L [id number] #### [facility] ([facility] [address] [place] [address] Hemoglobin (Bld) [Mass/Vol] 8.2 g/dL Low 12.0-15.0 [facility] Comment on above: Performed By: #### L [id number] #### [facility] ([facility]) [address] [place] [address] Immature granulocytes (Bld) [#/Vol] 0.06 10*3/uL Normal 0.00-0.20 [facility] Comment on above: Performed By: #### L [id number] #### [facility] ([facility]) [address] [facility] [address] [address] Immature granulocytes/100 WBC (Bld) 0.7 % Normal 0.0-1.0 [facility] Comment on above: Performed By: #### L [id number] #### [facility] ([facility]) [address] [place] [address] Lymphocytes (Bld) [#/Vol] 0.68 10*3/uL Low 1.20-4.00 [facility] Comment on above: Performed By: #### L [id number] #### [facility] ([facility]) [address] [place] [address] Lymphocytes/100 WBC (Bld) 7.5 % Low 20.0-45.0 [facility] Comment on above: Performed By: #### L [id number] #### [facility] ([facility]) [address] [place] [address] MCH (RBC) [Entitic mass] 31.4 pg Normal 27.0-33.0 [facility] Comment on above: Performed By: #### L [id number] #### [facility] ([facility] [address] [facility] [place] [address] MCV (RBC) [Entitic vol] 96.9 fL Normal 82.0-98.0 [facility] Comment on above: Performed By: #### L [id number] #### [facility] (BEAKER) [address] [place] [address] Monocytes (Bld) [#/Vol] 1.20 10*3/uL High 0.10-1.00 [facility] Comment on above: Performed By: #### L [id number] #### [facility] ([facility]AKER) [address] [place] [address] Monocytes/100 WBC (Bld) 13.2 % High 5.0-12.0 [facility] Comment on above: Performed By: #### L [id number] #### [facility] ([facility]AKER) [address] [place] [address] Neutrophils (Bld) [#/Vol] 7.06 10*3/uL Normal 1.60-7.60 [facility] Comment on above: Performed By: #### L [id number] #### [facility] ([facility]) [address] [place] [address] Neutrophils/100 WBC (Bld) 77.7 % High 40.0-72.0 [facility] Comment on above: Performed By: #### L [id number] #### [facility] ([facility]) [address] [place] [address] NRBC (PER 100 WBCS) BY AUTOMATED COUNT 0.0 % Normal 0 [facility] Comment on above: Performed By: #### L [id number] #### [facility] ([facility] [address] [place] [address] PLATELETS (10*3/UL) IN BLOOD AUTOMATED COUNT 196 10*3/uL Normal 150-400 [facility] Comment on above: Performed By: #### L [id number] #### [facility] ([facility]AKER) [address] [place] [address] RBC (Bld) [#/Vol] 2.61 10*6/uL Low 3.80-5.[address] [facility] Comment on above: Performed By: #### L [id number] #### [facility] ([facility]) [address] [place] [address] WBC (Bld) [#/Vol] 9.08 10*3/uL Normal 4.00-10.[address] [facility] Comment on above: Performed By: #### L [id number] #### [facility] ([facility]) [address] [place] [address] CKon 01-27-2024 CREATINE KINASE (U/L) IN SER/PLAS 34.0 U/L Normal 30.0-223.0 [facility] Comment on above: Performed By: #### L [id number] ####[facility] ([facility])[address] [place] [address] MAGNESIUMon 01-27-2024 Magnesium [Mass/Vol] 2.0 mg/dL Normal 1.9-2.7 [facility] Comment on above: Performed By: #### L [id number] #### [facility] ([facility]) [address] [place] [address] PHOSPHORUSon 01-27-2024 Magnesium [Mass/Vol] 3.1 mg/dL Normal 2.5-5.0 [facility] Comment on above: Performed By: #### L [id number] ####[facility] ([facility])[address] [place] [address] URIC ACIDon 01-27-2024 Magnesium [Mass/Vol] 7.6 mg/dL High 2.3-6.6 [facility] Comment on above: Performed By: #### L [id number] #### [facility] ([facility]) [address] [place] [address] VITAMIN D 25 HYDROXYon 01-26 CALCIDIOL (25 [place] VITAMIN D3) (NG/ML) IN SER/PLAS 34.6 ng/mL Normal 30.0-80.0 [facility] Comment on above: Result Comment: >80. 0 Toxicity possible Performed By: #### L [id number] ####[facility] ([facility])[address] [place] [address] BASIC METABOLIC PANELon 12-30 Anion gap [Moles/Vol] 11 mmol/L Normal 7-20 [facility] Comment on above: Performed By: #### L [id number] #### [facility] ([facility]) [address] [facility] [address] Calcium [Mass/Vol] 10.0 mg/dL Normal 8.6-10.3 [facility] Comment on above: Performed By: #### L [id number] #### [facility] ([facility]) [address] [place] [address] Chloride [Moles/Vol] 104 mmol/L Normal 98-107 [facility] Comment on above: Performed By: #### L [id number] #### [facility] ([facility]) [address] [place] [address] CO2 [Moles/Vol] 24 mmol/L Normal 21-31 [facility] Comment on above: Performed By: #### L [id number] #### [facility] ([facility]) [address] [place] [address] Creatinine [Mass/Vol] 1.97 mg/dL High 0.60-1.20 [facility] Comment on above: Performed By: #### L [id number] #### [facility] ([facility]) [address] [place] [address] GLOMERULAR FILTRATION RATE ML/MIN/1.73 SQ M.PREDICTED 25.7 mL/min/1.73m*2 Low >60.0 [facility] Comment on above: Result Comment: [facility]???s estimated glomerular filtration rate (eGFR) will no [...] group of individuals. Performed By: #### L [id number] #### [facility] ([facility]) [address] [place] [address] Glucose [Mass/Vol] 127 mg/dL High 70-100 [facility] Comment on above: Performed By: #### L [id number] #### [facility] ([facility]) [address] [place] [address] Potassium [Moles/Vol] 4.2 mmol/L Normal 3.5-5.1 [facility] Comment on above: Performed By: #### L [id number] #### [facility] ([facility]) [address] [place] [address] Sodium [Moles/Vol] 135 mmol/L Low 136-145 [facility] Comment on above: Performed By: #### L [id number] #### [facility] ([facility]) [address] [address] Urea nitrogen [Mass/Vol] 60 mg/dL High 7-25 [facility] Comment on above: Performed By: #### L [id number] #### [facility] ([facility]) [address] [place] [address] UREA NITROGEN/CREATININE (MASS RATIO) IN SER/PLAS 30.5 Normal [facility] Comment on above: Performed By: #### L [id number] #### [facility] ([facility]) [address] [place] [address] CBC WITH AUTO DIFFERENTIALon 01-26-2024 Basophils (Bld) [#/Vol] 0.01 10*3/uL Normal 0.00-0.20 [facility] Comment on above: Performed By: #### L [id number] #### [facility] ([facility]) [address] [place] [address] Basophils/100 WBC (Bld) 0.1 % Normal 0.0-1.0 [facility] Comment on above: Performed By: #### L [id number] #### [facility] ([facility]) [address] [place] [address] Eosinophils (Bld) [#/Vol] 0.01 10*3/uL Normal 0.00-0.50 [facility] Comment on above: Performed By: #### L [id number] #### [facility] ([facility]AK[facility]) [address] [place] [address] Eosinophils/100 WBC (Bld) 0.1 % Normal 0.0-6.0 [facility] Comment on above: Performed By: #### L [id number] #### [facility] [address] [place] [address] Erythrocyte distribution width (RBC) [Ratio] 13.5 % Normal 11.5-15.0 [facility] Comment on above: Performed By: #### L [id number] #### [facility] ([facility]) [address] [place] [address] ERYTHROCYTE MEAN CORPUSCULAR HEMOGLOBIN CONCENTRATION (G/DL) BY AUTOMATED 32.1 g/dL Normal 32.0-35.0 [facility] Comment on above: Performed By: #### L [id number] #### [facility] ([facility]) [address] [place] [address] Hematocrit (Bld) [Volume fraction] 26.5 % Low 36.0-48.0 [facility] Comment on above: Performed By: #### L [id number] #### [facility] ([facility] [address] [place] [address] Hemoglobin (Bld) [Mass/Vol] 8.5 g/dL Low 12.0-15.0 [facility] Comment on above: Performed By: #### L [id number] #### [facility] ([facility]AKER) [address] [place] [address] Immature granulocytes (Bld) [#/Vol] 0.09 10*3/uL Normal 0.00-0.20 [facility] Comment on above: Performed By: #### L [id number] #### [facility] ([facility]) [address] [place] [address] Immature granulocytes/100 WBC (Bld) 0.8 % Normal 0.0-1.0 [facility] Comment on above: Performed By: #### L [id number] #### [facility] [address] [place] [address] Lymphocytes (Bld) [#/Vol] 0.47 10*3/uL Low 1.20-4.00 [facility] Comment on above: Performed By: #### L [id number] #### [facility] ([facility]) [address] [place] [address] Lymphocytes/100 WBC (Bld) 4.2 % Low 20.0-45.0 [facility] Comment on above: Performed By: #### L [id number] #### [facility] ([facility]) [address] [place] [address] MCH (RBC) [Entitic mass] 31.7 pg Normal 27.0-33.0 [facility] Comment on above: Performed By: #### L [id number] #### [facility] ([facility]) [address] [place] [address] MCV (RBC) [Entitic vol] 98.9 fL High 82.0-98.0 [facility] Comment on above: Performed By: #### L [id number] #### [facility] ([facility] [address] [place] [address] Monocytes (Bld) [#/Vol] 1.01 10*3/uL High 0.10-1.00 [facility] Comment on above: Performed By: #### L [id number] #### [facility] ([facility]) [address] [place] [address] Monocytes/100 WBC (Bld) 8.9 % Normal 5.0-12.0 [facility] Comment on above: Performed By: #### L [id number] #### [facility] ([facility]) [address] [place] [address] Neutrophils (Bld) [#/Vol] 9.72 10*3/uL High 1.60-7.60 [facility] Comment on above: Performed By: #### L [id number] #### [facility] ([facility]) [address] [place] [address] Neutrophils/100 WBC (Bld) 85.9 % High 40.0-72.0 [facility] Comment on above: Performed By: #### L [id number] #### [facility] ([facility]) [address] [place] [address] NRBC (PER 100 WBCS) BY AUTOMATED COUNT 0.0 % Normal 0 [facility] Comment on above: Performed By: #### L [id number] #### [facility] ([facility]) [address] [place] [address] PLATELETS (10*3/UL) IN BLOOD AUTOMATED COUNT 199 10*3/uL Normal 150-400 [facility] Comment on above: Performed By: #### L [id number] #### [facility] ([facility]) [address] [place] [address] RBC (Bld) [#/Vol] 2.68 10*6/uL Low 3.80-5.[address] [facility] Comment on above: Performed By: #### L [id number] #### [facility] ([facility]) [address] [place] [address] WBC (Bld) [#/Vol] 11.31 10*3/uL High 4.00-10.60 [facility] Comment on above: Performed By: #### L [id number] #### [facility] ([facility]) [address] [place] [address] CONSULTon 01-26-2024 CONSULT Physical Medicine an d [...] 325 mg at 01/25/24 0813 HYDROcodone-acetaminoph en ([place]) 5-325 mg per tablet 1 tablet, 1 [...] Date CARDIOVE (more content not included)... Normal [facility] CORTISOLon 01-26-2024 CORTISOL (UG/DL) IN SER/PLAS 18.9 ug/dL Normal 03-22 [facility] Comment on above: Performed By: #### L [id number] #### [facility] ([facility]) [address] [place] [address] CORTISOL (UG/DL) IN SER/PLAS 15.1 ug/dL Normal 03-22 [facility] Comment on above: Order Comment: 30-mi n cortisol check after ACTH administration Performed By: #### L [id number] ####[facility] ([facility])[address] [place] [address] MAGNESIUMon 01-26-2024 Magnesium [Mass/Vol] 1.4 mg/dL Low 1.9-2.7 [facility] Comment on above: Performed By: #### L [id number] ####[facility] ([facility])[address] [place] [address] URINALYSIS WITH MICROSCOPICo n 01-26-2024 BILIRUBIN, TOTAL PRESENCE IN URINE Negative Normal Negative [facility] Comment on above: Performed By: #### L [id number] #### [facility] ([facility]) [address] [place] [address] Clarity (U) Clear Normal Clear [facility] Comment on above: Performed By: #### L [id number] #### [facility] ([facility] [address] [place] [address] Color (U) Straw Abnormal Yellow [facility] Comment on above: Performed By: #### L [id number] #### [facility] ([facility]) [address] [place] [address] Glucose (U) [Mass/Vol] Negative Normal Negative [facility] Comment on above: Performed By: #### L [id number] #### [facility] ([facility]) [address] [place] [address] HEMOGLOBIN PRESENCE IN URINE Small Abnormal Negative [facility] Comment on above: Performed By: #### L [id number] #### [facility] ([facility]) [address] [place] [address] Ketones Ql (U) Negative Normal Negative [facility] Comment on above: Performed By: #### L [id number] #### [facility] ([facility]) [address] [place] [address] LEUKOCYTE ESTERASE PRESENCE IN URINE BY TEST STRIP Trace Abnormal Negative [facility] Comment on above: Performed By: #### L [id number] #### [facility] ([facility]) [address] [place] [address] MUCUS (#/HPF) IN URINE SEDIMENT Occasional Normal None Seen, Occasional, Few [facility] Comment on above: Performed By: #### L [id number] #### [facility] ([facility]) [address] [place] [address] NITRITE PRESENCE IN URINE Negative Normal Negative [facility] Comment on above: Performed By: #### L [id number] #### [facility] ([facility]) [address] [place] [address] pH (U) 5.0 [pH] Normal 5.0-8.0 [facility] Comment on above: Performed By: #### L [id number] #### [facility] ([facility]) [address] [place] [address] Protein (U) [Mass/Vol] Negative Normal Negative [facility] Comment on above: Performed By: #### L [id number] #### [facility] ([facility]) [address] [place] [address] RBC (#/HPF) IN URINE SEDIMENT 6-10 Abnormal None Seen [facility] Comment on above: Performed By: #### L [id number] #### [facility] ([facility]) [address] [place] [address] Specific gravity (U) [Rel density] 1.013 Low 1.015-1.020 [facility] Comment on above: Performed By: #### L [id number] #### [facility] ([facility]) [address] [place] [address] SQUAMOUS EPITHELIAL CELLS (#/HPF) IN URINE SEDIMENT Moderate Abnormal None Seen, Occasional [facility] Comment on above: Performed By: #### L [id number] #### [facility] ([facility]) [address] [place] [address] WBC (LEUKOCYTE) (#/HPF) IN URINE SEDIMENT 3-5 Abnormal None Seen [facility] Comment on above: Performed By: #### L [id number] #### [facility] ([facility]) [address] [place] [address] 30on 01-25-2024 30 The patient is Moderately [...] include meds as prescribed, cold therapy. Normal [facility] 30 The patient is Moderately Stable - Low risk of patient condition declining or worsening The patient's goals for the shift include comfort The clinical goals for the shift include pain management Over the shift, the patient did not make progress toward the following goals. Barriers to progression include post op pain. Recommendations to address these barriers include meds as prescribed. Normal [facility] ALBUMINon 01-25-2024 Albumin [Mass/Vol] 3.4 g/dL Low 3.5-5.7 [facility] Comment on above: Performed By: #### L [id number] #### [facility] ([facility]) [address] [place] [address] BASIC METABOLIC PANELon - Anion gap [Moles/Vol] 10 mmol/L Normal 7-20 [facility] Comment on above: Performed By: #### L [id number] #### [facility] ([facility]) [address] [place] [address] Calcium [Mass/Vol] 10.3 mg/dL Normal 8.6-10.3 [facility] Comment on above: Performed By: #### L [id number] #### [facility] ([facility]) [address] [place] [address] Chloride [Moles/Vol] 106 mmol/L Normal 98-107 [facility] Comment on above: Performed By: #### L [id number] #### [facility] ([facility]) [address] [place] [address] CO2 [Moles/Vol] 24 mmol/L Normal 21-31 [facility] Comment on above: Performed By: #### L [id number] #### [facility] ([facility]) [address] [place] [address] Creatinine [Mass/Vol] 1.94 mg/dL High 0.60-1.20 [facility] Comment on above: Performed By: #### L [id number] #### [facility] ([facility]) [address] [place] [address] GLOMERULAR FILTRATION RATE ML/MIN/1.73 SQ M.PREDICTED 26.2 mL/min/1.73m*2 Low >60.0 [facility] Comment on above: Result Comment: [facility]???s estimated glomerular filtration rate (eGFR) will no [...] individuals. Performed By: #### L [id number] #### [facility] ([facility]) [address] [place] [address] Glucose [Mass/Vol] 137 mg/dL High 70-100 [facility] Comment on above: Performed By: #### L [id number] #### [facility] ([facility]) [address] [place] [address] Potassium [Moles/Vol] 5.0 mmol/L Normal 3.5-5.1 [facility] Comment on above: Performed By: #### L [id number] #### [facility] ([facility]) [address] [place] [address] Sodium [Moles/Vol] 135 mmol/L Low 136-145 [facility] Comment on above: Performed By: #### L [id number] #### [facility] ([facility]) [address] [place] [address] Urea nitrogen [Mass/Vol] 51 mg/dL High 7-25 [facility] Comment on above: Performed By: #### L [id number] #### [facility] ([facility] [address] [place] [address] UREA NITROGEN/CREATININE (MASS RATIO) IN SER/PLAS 26.3 Normal [facility] Comment on above: Performed By: #### L [id number] #### [facility] ([facility] [address] [place] [address] CBCon 01-25-2024 Erythrocyte distribution width (RBC) [Ratio] 13.2 % Normal 11.5-15.0 [facility] Comment on above: Performed By: #### L [id number] ####[facility] ([facility] [place] [address] ERYTHROCYTE MEAN CORPUSCULAR HEMOGLOBIN CONCENTRATION (G/DL) BY AUTOMATED 31.7 g/dL Low 32.0-35.0 [facility] Comment on above: Performed By: #### L [id number] ####[facility] ([facility] [place] [address] Hematocrit (Bld) [Volume fraction] 26.2 % Low 36.0-48.0 [facility] Comment on above: Performed By: #### L [id number] ####[facility] ([facility] [place] [address] Hemoglobin (Bld) [Mass/Vol] 8.3 g/dL Low 12.0-15.0 [facility] Comment on above: Performed By: #### L [id number] ####[facility] ([facility])[address] [place] [address] MCH (RBC) [Entitic mass] 31.4 pg Normal 27.0-33.0 [facility] Comment on above: Performed By: #### L [id number] ####[facility] ([facility])[address] [place] [address] MCV (RBC) [Entitic vol] 99.2 fL High 82.0-98.0 [facility] Comment on above: Performed By: #### Teri [id number] ####[facility] ([facility])[address] [place] [address] PLATELETS (10*3/UL) IN BLOOD AUTOMATED COUNT 188 10*3/uL Normal 150-400 [facility] Comment on above: Performed By: #### Teri [id number] ####[facility] ([facility])[address] [place] [address] RBC (Bld) [#/Vol] 2.64 10*6/uL Low 3.80-5.[address] [facility] Comment on above: Performed By: #### L [id number] ####[facility] ([facility])[place] [address] WBC (Bld) [#/Vol] 13.05 10*3/uL High 4.00-10.60 [facility] Comment on above: Performed By: #### L [id number] ####[facility] ([facility])[address] [place] [address] CONSULTon 01-25-2024 CONSULT --- Attestation signed by [...] 325 mg at 01/25/24 0813 HYDROcodone-acetaminoph en ([place]) 5-325 mg per tablet 1 tablet, 1 [...] (Narcan) i (more content not included)... Normal [facility] CORTISOLon 01-25-2024 CORTISOL (UG/DL) IN SER/PLAS 2.2 ug/dL Low 6-23 [facility] Comment on above: Performed By: #### L [id number] ####[facility] ([facility])[address] [place] [address] CREATININE, URINE, RANDOMon 01-25-2024 Creatinine (U) [Mass/Vol] 108.0 mg/dL Normal 26-299 [facility] Comment on above: Performed By: #### L [id number] #### [facility] ([facility]) [address] [place] [address] FERRITINon 01-25-2024 FERRITIN (NG/ML) IN SER/PLAS 285.0 ng/mL Normal 11.0-307.0 [facility] Comment on above: Performed By: #### L [id number] #### [facility] ([facility]) [address] [place] [address] FOLATEon 01-25-2024 FOLATE (NG/ML) IN SER/PLAS 16.22 ng/mL Normal 6.6-1000 [facility] Comment on above: Performed By: #### L [id number] #### [facility] ([facility] [address] [place] [address] IRON AND TIBCon 01-25-2024 IRON (UG/DL) IN SER/PLAS 46 ug/dL Low 50-212 [facility] Comment on above: Performed By: #### L [id number] ####[facility] ([facility])[address] [place] [address] IRON BINDING CAPACITY (UG/DL) IN SER/PLAS 235 ug/dL Low 250-450 [facility] Comment on above: Performed By: #### L [id number] ####[facility] ([facility])[address] [place] [address] IRON BINDING CAPACITY.UNSATURATE D (UG/DL) IN SER/PLAS 189.0 ug/dL Normal 155.0-355.0 [facility] Comment on above: Performed By: #### L [id number] ####[facility] ([facility])[address] [place] [address] IRON SATURATION (%) IN SER/PLAS 20 % Normal 20-50 [facility] Comment on above: Performed By: #### L [id number] ####[facility] ([facility])[address] [place] [address] SODIUM, URINE, RANDOMon 12-30 Sodium (U) [Moles/Vol] 32 mmol/L Normal [facility] Comment on above: Performed By: #### L [id number] #### [facility] ([facility] [address] [place] [address] TSH3 REFLEX TO FT4on 024 THYROTROPIN (MIU/L) IN SER/PLAS BY DETECTION LIMIT <= 0.05 MIU/L 0.97 mIU/L Normal 0.34-5.60 [facility] Comment on above: Performed By: #### L [id number] #### [facility] ([facility]) [address] [place] [address] VITAMIN B12on 01-25-2024 Cobalamin (Vitamin B12) [Mass/Vol] 310 pg/mL Normal 180-914 [facility] Comment on above: Result Comment: REFAbbie POOLE RANGES: 180-914 pg/mL Normal 145-179 pg/mL Indeterminate <145 pg/mL Deficient Performed By: #### L [id number] ####[facility] ([facility] [place] [address] 30on 01-24-2024 30 The patient is Moderately [...] and maintained or improved Outcome: Progressing Normal [facility] HPon 01-24-2024 HP H&P reviewed. The patient was examined and there are no changes to the H&P. I personally examined the patient and Marked his operative extremity, all questions answered and consents signed. Discussed operative and post op plan. Normal [facility] MRSA/MSSA DNA NASALon 2023 MRSA DNA Negative Normal Negative [facility] Comment on above: Order Comment: Testi ng [...] preclude nasal colonization. Performed By: #### L [id number] ####[facility] ([facility])[address] [place] [address] MSSA DNA Negative Normal Negative [facility] Comment on above: Order Comment: Testi ng [...] preclude nasal colonization. Performed By: #### L [id number] ####[facility] ([facility])[address] [place] [address] OPNOTEon 01-24-2024 OPNOTE TOTAL KNEE ARTHROPLA STY (R) Operative Note Date: 01/24/2024 Location: [facility] Name: Lizabeth Montanez, : 1945, Diagnosis Pre-op Diagnosis * Primary osteoarthritis of right knee [M17.11] Post-op Diagnosis * Primary osteoarthritis of right knee [M17.11] Procedures TOTAL KNEE ARTHROPLASTY 40514 - AL ARTHRP KNE CONDYLE&PLATU MEDIAL&LAT COMPARTMENTS AL INJECTION AA&/STRD FEMORAL NERVE W/IMG GDN [[id number]] Surgeons * Mynor Gallegos - Primary Ruslan eLw MD Procedure Summary Anesthesia: General ASA: III Estimated Blood Loss: 250 mL Drains: [REMOVED] Urethral Catheter Non-latex 16 Fr. (Removed) Implants Type Name Action Serial No. Bone Cement CEMENT,BONE,R,[id number] - [id number] Implanted PERSONA CR FEMUR Implanted PERSONA NATURAL TIBIA Implanted PERSONA PATELLA Implanted PERSONA ARTICULAR SURFACE Implanted Implants : Persona Size 5 CR femur component and size E natural tibial component, Size 35 mm round patellar resurfacing , Size 10 mm Medial congruent poly liner ( MC) Staff: Cobbler Sole: Leilani Guerrero RN Scrub Person: Carlie Francisco CST Reproduction Order Processor: Rogelio Feliz CSA Indications: Lizabeth Montanez is [...] the os (more content not included)... Normal [facility] POCT GLUCOSE METER UNSOLICIT ED RESULTSon 01-24-2024 Glucose [Mass/Vol] 97 mg/dL Normal 70-105 [facility] Comment on above: Order Comment: Waive d Testing in the ED is performed under the ED CLIA certificate #[id number]. Result Comment: czyd orc Performed By: #### L [id number] #### [facility] ([facility]) [address] [place] [address] APTTon 01-16-2024 ACTIVATED PARTIAL THROMBOPLASTIN TIME IN PPP BY COAGULATION ASSAY 33.4 Seconds Normal 25.0-35.0 [facility] Comment on above: Result Comment: Clin ical significance of the APTT is questionable in the presence of heparin. Performed By: #### L [id number] ####[facility] ([facility])[address] [place] [address] BASIC METABOLIC PANELon 12-29 Anion gap [Moles/Vol] 12 mmol/L Normal 7-20 [facility] Comment on above: Performed By: #### L [id number] #### [facility] ([facility]) [address] [place] [address] Calcium [Mass/Vol] 11.5 mg/dL High 8.6-10.3 [facility] Comment on above: Performed By: #### L [id number] #### [facility] ([facility] [address] [place] [address] Chloride [Moles/Vol] 108 mmol/L High 98-107 [facility] Comment on above: Performed By: #### L [id number] #### [facility] ([facility]) [address] [place] [address] CO2 [Moles/Vol] 24 mmol/L Normal 21-31 [facility] Comment on above: Performed By: #### L [id number] #### [facility] ([facility]) [address] [place] [address] Creatinine [Mass/Vol] 1.75 mg/dL High 0.60-1.20 [facility] Comment on above: Performed By: #### L [id number] #### [facility] ([facility]) [address] [place] [address] GLOMERULAR FILTRATION RATE ML/MIN/1.73 SQ M.PREDICTED 29.6 mL/min/1.73m*2 Low >60.0 [facility] Comment on above: Result Comment: [facility]???s estimated glomerular filtration rate (eGFR) will no [...] individuals. Performed By: #### L [id number] #### [facility] ([facility]) [address] [address] Glucose [Mass/Vol] 96 mg/dL Normal 70-100 [facility] Comment on above: Performed By: #### L [id number] #### [facility] ([facility]) [address] [address] Potassium [Moles/Vol] 4.3 mmol/L Normal 3.5-5.1 [facility] Comment on above: Performed By: #### L [id number] #### [facility] ([facility]) [address] [place] [address] Sodium [Moles/Vol] 140 mmol/L Normal 136-145 [facility] Comment on above: Performed By: #### L [id number] #### [facility] ([facility] [address] [place] [address] Urea nitrogen [Mass/Vol] 56 mg/dL High 7-25 [facility] Comment on above: Performed By: #### L [id number] #### [facility] ([facility] [address] [place] [address] UREA NITROGEN/CREATININE (MASS RATIO) IN SER/PLAS 32.0 Normal [facility] Comment on above: Performed By: #### L [id number] #### [facility] ([facility]) [address] [place] [address] CBC WITH AUTO DIFFERENTIALon 01-16-2024 Basophils (Bld) [#/Vol] 0.05 10*3/uL Normal 0.00-0.20 [facility] Comment on above: Performed By: #### L [id number] ####[facility] ([facility])[address] [place] [address] Basophils/100 WBC (Bld) 0.9 % Normal 0.0-1.0 [facility] Comment on above: Performed By: #### L [id number] ####[facility] ([facility])[address] [place] [address] Eosinophils (Bld) [#/Vol] 0.16 10*3/uL Normal 0.00-0.50 [facility] Comment on above: Performed By: #### L [id number] ####[facility] ([facility] [place] [address] Eosinophils/100 WBC (Bld) 2.7 % Normal 0.0-6.0 [facility] Comment on above: Performed By: #### L [id number] ####[facility] ([facility] [place] [address] Erythrocyte distribution width (RBC) [Ratio] 13.7 % Normal 11.5-15.0 [facility] Comment on above: Performed By: #### L [id number] ####[facility] ([facility])[address] [place] [address] ERYTHROCYTE MEAN CORPUSCULAR HEMOGLOBIN CONCENTRATION (G/DL) BY AUTOMATED 31.8 g/dL Low 32.0-35.0 [facility] Comment on above: Performed By: #### L [id number] ####[facility] ([facility])[address] [place] [address] Hematocrit (Bld) [Volume fraction] 30.8 % Low 36.0-48.0 [facility] Comment on above: Performed By: #### L [id number] ####[facility] ([facility])[address] [place] [address] Hemoglobin (Bld) [Mass/Vol] 9.8 g/dL Low 12.0-15.0 [facility] Comment on above: Performed By: #### L [id number] ####[facility] ([facility])[address] [place] [address] Immature granulocytes (Bld) [#/Vol] 0.01 10*3/uL Normal 0.00-0.20 [facility] Comment on above: Performed By: #### L [id number] ####[facility] ([facility])[address] [place] [address] Immature granulocytes/100 WBC (Bld) 0.2 % Normal 0.0-1.0 [facility] Comment on above: Performed By: #### L [id number] ####[facility] ([facility])[address] [place] [address] Lymphocytes (Bld) [#/Vol] 0.79 10*3/uL Low 1.20-4.00 [facility] Comment on above: Performed By: #### L [id number] ####[facility] ([facility])[address] [place] [address] Lymphocytes/100 WBC (Bld) 13.5 % Low 20.0-45.0 [facility] Comment on above: Performed By: #### L [id number] ####[facility] ([facility])[address] [place] [address] MCH (RBC) [Entitic mass] 31.3 pg Normal 27.0-33.0 [facility] Comment on above: Performed By: #### L [id number] ####[facility] ([facility])[address] [place] [address] MCV (RBC) [Entitic vol] 98.4 fL High 82.0-98.0 [facility] Comment on above: Performed By: #### L [id number] ####[facility] ([facility])[address] [place] [address] Monocytes (Bld) [#/Vol] 0.57 10*3/uL Normal 0.10-1.00 [facility] Comment on above: Performed By: #### L [id number] ####[facility] ([facility])[address] [place] [address] Monocytes/100 WBC (Bld) 9.7 % Normal 5.0-12.0 [facility] Comment on above: Performed By: #### L [id number] ####[facility] ([facility])[address] [place] [address] Neutrophils (Bld) [#/Vol] 4.28 10*3/uL Normal 1.60-7.60 [facility] Comment on above: Performed By: #### L [id number] ####[facility] [place] [address] Neutrophils/100 WBC (Bld) 73.0 % High 40.0-72.0 [facility] Comment on above: Performed By: #### L [id number] ####[facility] ([facility] [place] [address] NRBC (PER 100 WBCS) BY AUTOMATED COUNT 0.0 % Normal 0 [facility] Comment on above: Performed By: #### L [id number] ####[facility] ([facility] [place] [address] PLATELETS (10*3/UL) IN BLOOD AUTOMATED COUNT 229 10*3/uL Normal 150-400 [facility] Comment on above: Performed By: #### L [id number] ####[facility] ([facility] [place] [address] RBC (Bld) [#/Vol] 3.13 10*6/uL Low 3.80-5.[address] [facility] Comment on above: Performed By: #### L [id number] ####[facility] ([facility] [place], [place] [address] WBC (Bld) [#/Vol] 5.86 10*3/uL Normal 4.00-10.[address] [facility] Comment on above: Performed By: #### L [id number] ####[facility] ([facility] [place] [address] Consulton 01-16-2024 Consult [id number] Mignon Montanez E 1945 F Date Provider Department [place] 01/16/2024 [id number]-[id number] GALLEGOS MP ORTHO MPORTHO Family History Problem Relation Age of Onset Other Mother Other Mother Heart attack Father's Sister Family Status - Relation Status Age at Mother Father's Sister Level of Service:58980 AL OFFICE/OUTPATIENT ESTABLISHED LOW MDM 20 MIN Reason for Visit and Comments: Pain [136] - Pre-op R TKA Normal [facility] HEMOGLOBIN A1Con 01-16-2024 Glucose [Mass/Vol] 103 mg/dL Normal [facility] Comment on above: Performed By: #### L [id number] ####[facility] ([facility] [place] [address] HbA1c (Bld) [Mass fraction] 5.2 % Normal 4.0-6.0 [facility] Comment on above: Performed By: #### L [id number] ####[facility] ([facility] [place] [address] HPon 01-16-2024 Orthopedic Surgery Subjective Chief complaint: [...] the patient's ability to complete ADLs. Normal [facility] Labon 01-16-2024 Lab [id number] MontanezMignon n E 1945 F Date Provider Department [place] 01/16/2024 [id number] RESOURCE [facility] Pavi Family History Problem Relation Age of Onset Other Mother Other Mother Heart attack Father's Sister Family Status - Relation Status Age at Mother Father's Sister Normal [facility] Orders Onlyon 01-16-2024 Orders Only [id number] MontanezMignon nicolas cinthia E 1945 F Date Provider Department [place] 01/16/2024 KENNA SCHWARTZ [facility] PAT MD Medical C Family History Problem Relation Age of Onset Other Mother Other Mother Heart attack Father's Sister Family Status - Relation Status Age at Mother Father's Sister Normal [facility] PROTIME-INRon 01-16-2024 INR IN PPP BY COAGULATION ASSAY 1.34 High 0.90-1.10 [facility] Comment on above: Result Comment: ACCC P [...] CHEST 1995;108:[id number]. Performed By: #### L [id number] ####[facility] (BEAKER)[address] [place] [address] PROTHROMBIN TIME (PT) IN PPP BY COAGULATION ASSAY 16.6 Seconds High 12.3-14.8 [facility] Comment on above: Performed By: #### L [id number] ####[facility] (BEAKER)[address] [place] [address] TYPE AND SCREENon 01-16-2024 AB SCREEN Negative Normal [facility] Comment on above: Performed By: #### L [id number] #### [facility] BLOOD BANK , ABO group Nom (Bld) O Normal [facility] Comment on above: Performed By: #### L [id number] #### [facility] BLOOD BANK , RH TYPE IN BLOOD Positive Normal [facility] Comment on above: Performed By: #### L [id number] #### [facility] BLOOD BANK , URINALYSIS MICROSCOPIC WITH REFLEX CULTUREon 01-16-2024 CASTS IN URINE Normal [facility] Comment on above: Performed By: #### L [id number] ####[facility] (BEAKER)[address] [place] [address] CRYSTALS IN URINE Normal [facility] Comment on above: Performed By: #### L [id number] ####[facility] (BEAKER)[address] [place] [address] MUCUS (#/HPF) IN URINE SEDIMENT Occasional Normal None Seen, Occasional, Few [facility] Comment on above: Performed By: #### L [id number] ####[facility] ([facility] [place] [address] OTHER MICROSCOPIC ELEMENTS Normal [facility] Comment on above: Performed By: #### L [id number] ####[facility] ([facility])[address] [place] [address] RBC (#/HPF) IN URINE SEDIMENT 0-2 Abnormal None Seen [facility] Comment on above: Performed By: #### L [id number] ####[facility] ([facility])[address] [place] [address] SQUAMOUS EPITHELIAL CELLS (#/HPF) IN URINE SEDIMENT Occasional Normal None Seen, Occasional [facility] Comment on above: Performed By: #### L [id number] ####[facility] ([facility])[address] [place] [address] WBC (LEUKOCYTE) (#/HPF) IN URINE SEDIMENT 3-5 Abnormal None Seen [facility] Comment on above: Performed By: #### L [id number] ####[facility] ([facility])[address] [place] [address] URINALYSIS WITH REFLEX CULTU REon 01-16-2024 BILIRUBIN, TOTAL PRESENCE IN URINE Negative Normal Negative [facility] Comment on above: Performed By: #### L [id number] ####[facility] ([facility])[address] [place] [address] Clarity (U) Clear Normal Clear [facility] Comment on above: Performed By: #### L [id number] ####[facility] ([facility])[address] [place] [address] Color (U) Yellow Normal Yellow [facility] Comment on above: Performed By: #### L [id number] ####[facility] ([facility])[address] [place] [address] Glucose (U) [Mass/Vol] Negative Normal Negative [facility] Comment on above: Performed By: #### L [id number] ####[facility] ([facility])[address] [place] [address] HEMOGLOBIN PRESENCE IN URINE Negative Normal Negative [facility] Comment on above: Performed By: #### L [id number] ####[facility] ([facility])[address] [place] [address] Ketones Ql (U) Negative Normal Negative [facility] Comment on above: Performed By: #### L [id number] ####[facility] ([facility])[address] [place] [address] LEUKOCYTE ESTERASE PRESENCE IN URINE BY TEST STRIP Trace Abnormal Negative [facility] Comment on above: Performed By: #### L [id number] ####[facility] ([facility])[address] [place] [address] NITRITE PRESENCE IN URINE Negative Normal Negative [facility] Comment on above: Performed By: #### L [id number] ####[facility] ([facility])[address] [place] [address] pH (U) 5.0 [pH] Normal 5.0-8.0 [facility] Comment on above: Performed By: #### L [id number] ####[facility] ([facility])[address] [place] [address] Protein (U) [Mass/Vol] Negative Normal Negative [facility] Comment on above: Performed By: #### L [id number] ####[facility] ([facility])[address] [place] [address] Specific gravity (U) [Rel density] 1.015 Normal 1.015-1.020 [facility] Comment on above: Performed By: #### L [id number] ####[facility] ([facility])[address] [place] [address] URINE CULTURE, ROUTINEon Bacteria identified Cx Nom (U) 50,000 - 100,000 CFU/ML Uro-Genital Quintin Normal [facility] Comment on above: Performed By: #### L [id number] #### [facility] BLOOD BANK , Orders Onlyon 01-14-2024 Orders Only [id number] Mignon Montanez 1945 F Date Provider Department Center 01/14/2024 [id number] LEONARDO [facility] PAT [facility] Family History Problem Relation Age of Onset Other Mother Other Mother Heart attack Father's Sister Family Status - Relation Status Age at Mother Father's Sister Normal [facility] Office Visiton 01-07-2024 Follow-up visit [id number] Mignon Montanez n E 1945 Provider Department Center 01/07/2024 3848-YENI UGALDE [facility] Family History Problem Relation Age of Onset Other Mother Other Mother Heart attack Father's Sister Family Status - Relation Status Age at Mother Father's Sister Level of Service:07260 AL OFFICE/OUTPATIENT ESTABLISHED LOW MDM 20 MIN Reason for Visit and Comments: Follow-up [[id number]] - Patient needs cardiac clearance [facility] Office Visiton 11-28-2023 Follow-up visit [id number] Mignon Montanez n E 1945 Provider Department Center 11/28/2023 293-MYNOR GALLEGOS MP ORTHO MPORTHO Family History Problem Relation Age of Onset Other Mother Other Mother Heart attack Father's Sister Family Status - Relation Status Age at Mother Father's Sister Level of Service:08934 AL OFFICE/OUTPATIENT ESTABLISHED MOD MDM 30 MIN Reason for Visit and Comments: Pain [136] - L tka F/U Normal [facility] XR KNEE JUAN JOSE 3 Von 02-27-2023 XR KNEE JUAN JOSE 3 V EXAMINATION: XR KNEE JUAN JOSE 3 V HISTORY: Osteoarthritis of knee ; chronic bilateral knee pain COMPARISON: XR knee bilateral 04/20/2021 FINDINGS: RIGHT FINDINGS: BONES: Complete loss of the anterior, medial, lateral joint spaces with bhpt-lc-dfjn articulation and marked sclerosis. Lateral subluxation of the tibial plafond in relation to the femoral condyles. Large periarticular degenerative osteophytes involving all 3 compartments. SOFT TISSUES: No visible soft tissue swelling. OTHER: Large joint effusion. LEFT FINDINGS: BONES: Marked narrowing of the anterior, medial, lateral joint spaces with near othf-lm-wqfa articulation and subchondral sclerosis. Prominent lateral subluxation of the tibial plafond in relation to the femoral condyles. Large periarticular degenerative osteophytes involving all 3 compartments. SOFT TISSUES: No visible soft tissue swelling. OTHER: Large joint effusion. IMPRESSION: RIGHT CONCLUSION: Advanced degenerative joint disease. LEFT CONCLUSION: Advanced degenerative joint disease. Electronically authenticated by: SHILA RICHARDS Date: 2023-02-27 16:24 Normal [facility] CBC AUTO DIFFon 12-26-2022 BASO # 0.0 103/ul Normal 0.0-0.1 [facility] Comment on above: Performed By: #### C BC ####[facility] [address] [place] [address]Dr. Malia Bustamante Basophils/100 WBC (Bld) 0.5 % Normal 0.2-2.0 [facility] Comment on above: Performed By: #### C BC ####[facility] [address] [place], [place] [address]Dr. Malia Bustamante EO # 0.2 103/ul Normal 0.0-0.7 [facility] Comment on above: Performed By: #### C BC ####[facility] E[address] [place], [place] [address]Dr. Malia Bustamante Eosinophils/100 WBC (Bld) 3.2 % Normal 0.9-7.0 [facility] Comment on above: Performed By: #### C BC ####[facility] [address] [place], [place] [address]Dr. Malia Bustamante Erythrocyte distribution width (RBC) [Ratio] 13.5 % Normal 11.0-15.0 [facility] Comment on above: Performed By: #### C BC ####[facility] X[address] [place], [place] [address]Dr. Malia Bustamante Hematocrit (Bld) [Volume fraction] 31.8 % Critically low 36.0-48.0 [facility] Comment on above: Performed By: #### C BC ####[facility] [address] [place], [place] [address]Dr. Malia Bustamante Hemoglobin (Bld) [Mass/Vol] 10.1 g/dL Critically low 12.0-16.0 [facility] Comment on above: Performed By: #### C BC ####[facility] [address] [place], [place] [address]DrMacey Malia Bustamante IG # 0.02 10e3/ul Normal 0.00-0.03 [facility] Comment on above: Performed By: #### C BC ####[facility] [address] [place] [address]DrMacey Malia Bustamante IG % 0.4 % Normal 0.0-0.5 [facility] Comment on above: Performed By: #### C BC ####[facility] [address] [place] [address]DrMacey Malia Robby LYMPH # 0.8 103/ul Critically low 1.2-3.8 [facility] Comment on above: Performed By: #### C BC ####[facility] [address] [place] [address]DrMacey Malia Robby Lymphocytes/100 WBC (Bld) 13.8 % Critically low 20.5-60.0 [facility] Comment on above: Performed By: #### C BC ####[facility] [address] [place], [place] [address]DrMacey Malia Robby MANUAL DIFF REQ NO Normal [facility] Comment on above: Performed By: #### C BC ####[facility] [address] [place], [place] [address]DrMacey Malia Robby MCH (RBC) [Entitic mass] 32.0 pg Normal 26.7-34.0 [facility] Comment on above: Performed By: #### C BC ####[facility] [address] [place], [place] [address]DrMacey Malia Robby MCHC (RBC) [Mass/Vol] 31.8 g/dL Normal 29.9-35.2 [facility] Comment on above: Performed By: #### C BC ####[facility] [address] [place], [place] [address]DrMacey Malia Robby MCV (RBC) [Entitic vol] 100.6 fL Critically high 81.0-99.0 [facility] Comment on above: Performed By: #### C BC ####[facility] [address] [place], [place] [address]DrMacey Bustamante MONO # 0.4 103/ul Normal 0.3-0.8 [facility] Comment on above: Performed By: #### C BC ####[facility] [address] [place] [address]Dr. Malia Bustamante Monocytes/100 WBC (Bld) 7.9 % Normal 1.7-12.0 [facility] Comment on above: Performed By: #### C BC ####[facility] [address] [place] [address]Dr. Malia Bustamante NEUT # 4.2 103/ul Normal 1.4-6.5 [facility] Comment on above: Performed By: #### C BC ####[facility] [address] [place] [address]Dr. Malia Bustamante Neutrophils/100 WBC (Bld) 74.2 % Normal 43.0-75.0 [facility] Comment on above: Performed By: #### C BC ####[facility] [address] [place] [address]Dr. Malia Bustamante Platelet mean volume (Bld) [Entitic vol] 11.2 fL Normal 9.5-13.5 [facility] Comment on above: Performed By: #### C BC ####[facility] [address] [place] [address]Dr. Malia Bustamante PLT 165 103/ul Normal 150-450 [facility] Comment on above: Performed By: #### C BC ####[facility] [address] [place] [address]Dr. Malia Bustamante RBC 3.16 106/ul Critically low 4.20-5.40 [facility] Comment on above: Performed By: #### C BC ####[facility] [address] [place] [address]Dr. Malia Bustamante WBC 5.6 103/ul Normal 4.0-11.0 [facility] Comment on above: Performed By: #### C BC ####[facility] [address] [place] [address]DrMacey Flakitatahir Bustamante PROF CHEM 8 (BAS METB)on Anion gap [Moles/Vol] 16.3 mmol/L Normal [facility] Comment on above: Performed By: #### B MP ####[facility] Cec[address]rx[address] [place], [place] [address]Dr. Malia Bustamante Calcium [Mass/Vol] 11.1 mg/dL Critically high 8.5-10.[address] [facility] Comment on above: Performed By: #### B MP ####[facility] [address] [place], [place] [address]Dr. Malia Bustamante Chloride [Moles/Vol] 113 mmol/L Critically high 98-107 [facility] Comment on above: Performed By: #### B MP ####[facility] [address]ws[address]umepl[address] [place], [place] [address]Dr. Flakitatahir Bustamante CO2 [Moles/Vol] 22.9 mmol/L Normal 21.0-32.0 [facility] Comment on above: Performed By: #### B MP ####[facility] [address] [place], [place] [address]Dr. Malia Bustamante Creatinine [Mass/Vol] 1.84 mg/dL Critically high 0.55-1.02 [facility] Comment on above: Performed By: #### B MP ####[facility] [address] [place], [place] [address]Dr. Malia Bustamante EGFR-AF NIUEAN 32 mL/min/1.73m2 Critically low >=60 [facility] Comment on above: Performed By: #### B MP ####[facility] [address] [place], [place] [address]Dr. Malia Bustamante EGFR-NON AF NIUEAN 27 mL/min/1.73m2 Critically low >=60 [facility] Comment on above: Performed By: #### B MP ####[facility] Nyq[address] [place], [place] [address]Dr. Malia Bustamante Glucose [Mass/Vol] 97 mg/dL Normal 74-106 [facility] Comment on above: Performed By: #### B MP ####[facility] F[address]chdfxf[address] [place], [place] [address]Dr. Malia Bustamante Potassium [Moles/Vol] 5.2 mmol/L Critically high 3.5-5.1 [facility] Comment on above: Performed By: #### B MP ####[facility] [address] [place], [place] [address]Cp. Malia Bustamante Sodium [Moles/Vol] 147 mmol/L Critically high 136-145 [facility] Comment on above: Performed By: #### B MP ####[facility] [address] [place] [id number]. Malia Bustamante Urea nitrogen [Mass/Vol] 42.0 mg/dL Critically high 7.0-18.0 [facility] Comment on above: Performed By: #### B MP ####[facility] [address] [place] [address]Dr. Malia Bustamante Urea nitrogen/Creatinine [Mass ratio] 22.8 mg/mg Normal [facility] Comment on above: Performed By: #### B MP ####[facility] [address] [place] [id number]. Malia Bustamante US KIDNEYS BLADDERon 023 US KIDNEYS BLADDER US KIDNEYS BLADDER EXAM DATE: 12/08/2022 6:55 AM MST COMPARISON: None available. INDICATION: Chronic kidney disease. TECHNIQUE: Real-time ultrasound scanning of the kidneys and bladder was performed by the senior data mining analyst. Account Officer static images are submitted for review. FINDINGS: [...] PAMELA PECK Date: 2022-12-08 13:20 Normal [facility] CULTURE URINEon 12-01-2022 CULTURE URINE Culture Observations : LIGHT GROWTH OF MIXED GENITAL QUINTIN. NO POTENTIAL PATHOGENS SEEN. Normal [facility] Comment on above: Performed By: #### U RCX ####[facility] [address] [place] [address]Dr. Malia Bustamante MICROALBUMIN, RAND URon 03-0 mALB 1.7 mg/L Normal <=30.0 [facility] Comment on above: Performed By: #### M ALBR ####[facility] [address] [place] [address]Dr. Malia Bustamante UA RANDOM W/MICROSCOPICon BACTERIA NONE SEEN Normal NONE SEEN [facility] Comment on above: Performed By: #### U AMIC ####[facility] [address] [place], [place] [address]Dr. Malia Bustamante Bilirubin Ql (U) Negative Normal NEGATIVE [facility] Comment on above: Performed By: #### U AMIC ####[facility] [address] [place], [place] [address]Dr. Malia Bustamante CAST NONE SEEN Normal NONE SEEN [facility] Comment on above: Performed By: #### U AMIC ####[facility] [address] [place] [address]Dr. Malia Bustamante Clarity (U) CLEAR Normal CLEAR [facility] Comment on above: Performed By: #### U AMIC ####[facility] [address] [place], [place] [address]Dr. Malia Bustamante Color (U) LT. YELLOW Normal YELLOW [facility] Comment on above: Performed By: #### U AMIC ####[facility] [address] [place], [place] [address]Dr. Malia Bustamante Crystals LM Nom (Urine sed) NONE SEEN Normal NONE SEEN [facility] Comment on above: Performed By: #### U AMIC ####[facility] [address] [place], [place] [address]Dr. Malia Bustamante Epithelial cells LM Ql (Urine sed) FEW Abnormal NONE SEEN /RARE [facility] Comment on above: Performed By: #### U AMIC ####[facility] [address] [place] [address]Dr. Malia Bustamante Glucose Ql (U) Negative Normal NEGATIVE [facility] Comment on above: Performed By: #### U AMIC ####[facility] [address] [place] [address]Dr. Malia Bustamante Hemoglobin Ql (U) Negative Normal NEGATIVE [facility] Comment on above: Performed By: #### U AMIC ####[facility] [address] [place] [address]Dr. Malia Bustamante Ketones Ql (U) Negative Normal NEGATIVE [facility] Comment on above: Performed By: #### U AMIC ####[facility] [address] [place] [address]Dr. Malia Bustamante LEUKOCYTES Negative Normal NEGATIVE [facility] Comment on above: Performed By: #### U AMIC ####[facility] [address] [place], [place] [address]Dr. Yitahir Bustamante MUCOUS NONE SEEN Normal NONE SEEN [facility] Comment on above: Performed By: #### U AMIC ####[facility] [address] [place], [place] [address]Dr. Malia Bustamante Nitrite Ql (U) Negative Normal NEGATIVE [facility] Comment on above: Performed By: #### U AMIC ####[facility] [address] [place] [address]Dr. Malia Bustamante pH (U) 5.5 [pH] Normal 5-9 [facility] Comment on above: Performed By: #### U AMIC ####[facility] [address] [place], [place] [address]Dr. Malia Bustamante RBC NONE SEEN Abnormal 0-2 [facility] Comment on above: Performed By: #### U AMIC ####[facility] [address] [place] [address]Dr. Flakitatahir Bustamante SPEC GRAVITY 1.020 Normal 1.005-<=1.025 [facility] Comment on above: Performed By: #### U AMIC ####[facility] [address] [place], [place] [address]Oh. Malia Bustamante UA PROTEIN Negative Normal NEGATIVE/ TRACE [facility] Comment on above: Performed By: #### U AMIC ####[facility] [address] [place], [place] [address]Vw. Malia Bustamante Urobilinogen Qn (U) 0.2 {Álvaro'U}/dL Normal 0.2 - 1. 0 [facility] Comment on above: Performed By: #### U AMIC ####[facility] [address] [place], [place] [address]Jl. Malia Bustamante WBC NONE SEEN Normal NONE SEEN [facility] Comment on above: Performed By: #### U AMIC ####[facility] [address] [place], [place] [address]Ls. Malia Robby ECHOCARDIO M/2D COMPLETEon 0 11-01-2022 ECHOCARDIO M/2D COMPLETE Patient: LIZABETH MONTANEZ Exam Date: 11/01/2022 : 1945 Gender:F Ordering : DR ISAK BONE . Admission #: [id number] Family : Order #: [id number] CLICK HERE TO VIEW EXAM ECHOCARDIOGRAM REPORT [...] M.D. on 11/02/2022 at 11:25 Normal [facility] INSULINon 10-30-2022 Insulin 11.5 uIU/mL Normal 2.6-24.9 [facility] Comment on above: Performed By: #### I NSULIN #### [facility] [address] [place] [address] Dr. Malia Bustamante BNPon 10-29-2022 Natriuretic peptide B (Bld) [Mass/Vol] 4315.0 pg/mL Critically high <=1,800.0 [facility] Comment on above: Performed By: #### L IPID, CMP, TSH, T7, BNP #### [facility] [address] [place] [address] [address] Malia Bustamante CBC AUTO DIFFon 10-29-2022 BASO # 0.0 103/ul Normal 0.0-0.1 [facility] Comment on above: Performed By: #### C BC #### [facility] [address] [address] [address] Malia Bustamante Basophils/100 WBC (Bld) 0.6 % Normal 0.2-2.0 [facility] Comment on above: Performed By: #### C BC #### [facility] [address] [place] [address] Dr. Malia Bustamante EO # 0.1 103/ul Normal 0.0-0.7 [facility] Comment on above: Performed By: #### C BC #### [facility] [address] [place] [address] Dr. Malia Bustamante Eosinophils/100 WBC (Bld) 1.6 % Normal 0.9-7.0 [facility] Comment on above: Performed By: #### C BC #### [facility] [address] [place] [address] Dr. Malia Bustamante Erythrocyte distribution width (RBC) [Ratio] 13.1 % Normal 11.0-15.0 [facility] Comment on above: Performed By: #### C BC #### [facility] [address] [place] [address] Dr. Malia Bustamante Hematocrit (Bld) [Volume fraction] 31.3 % Critically low 36.0-48.0 [facility] Comment on above: Performed By: #### C BC #### [facility] [address] [place] [address] Dr. Malia Bustamante Hemoglobin (Bld) [Mass/Vol] 10.3 g/dL Critically low 12.0-16.0 [facility] Comment on above: Performed By: #### C BC #### [facility] [address] [place] [address] Dr. Malia Bustamante IG # 0.03 10e3/ul Normal 0.00-0.03 [facility] Comment on above: Performed By: #### C BC #### [facility] [address] [place] [address] Dr. Malia Bustamante IG % 0.5 % Normal 0.0-0.5 [facility] Comment on above: Performed By: #### C BC #### [facility] [address] [place] [address] Dr. Malia Bustamante LYMPH # 0.7 103/ul Critically low 1.2-3.8 [facility] Comment on above: Performed By: #### C BC #### [facility] [address] [place] [address] Dr. Malia Bustamante Lymphocytes/100 WBC (Bld) 10.1 % Critically low 20.5-60.0 [facility] Comment on above: Performed By: #### C BC #### [facility] [address] [place] [address] Dr. Malia Bustamante MANUAL DIFF REQ NO Normal [facility] Comment on above: Performed By: #### C BC #### [facility] [address] [place] [address] Dr. Malia Bustamante MCH (RBC) [Entitic mass] 32.0 pg Normal 26.7-34.0 [facility] Comment on above: Performed By: #### C BC #### [facility] [address] [place] [address] Dr. Malia Bustamante MCHC (RBC) [Mass/Vol] 32.9 g/dL Normal 29.9-35.2 [facility] Comment on above: Performed By: #### C BC #### [facility] [address] [place] [address] Dr. Malia Bustamante MCV (RBC) [Entitic vol] 97.2 fL Normal 81.0-99.0 [facility] Comment on above: Performed By: #### C BC #### [facility] [address] [place] [address] Dr. Malia Bustamante MONO # 0.5 103/ul Normal 0.3-0.8 [facility] Comment on above: Performed By: #### C BC #### [facility] [address] [place] [address] Dr. Malia Bustamante Monocytes/100 WBC (Bld) 7.3 % Normal 1.7-12.0 [facility] Comment on above: Performed By: #### C BC #### [facility] [address] [place] [address] Dr. Malia Bustamante NEUT # 5.2 103/ul Normal 1.4-6.5 [facility] Comment on above: Performed By: #### C BC #### [facility] [address] [place] [address] Dr. Malia Bustamante Neutrophils/100 WBC (Bld) 79.9 % Critically high 43.0-75.0 [facility] Comment on above: Performed By: #### C BC #### [facility] [address] [address] [address] Malia Bustamante Platelet mean volume (Bld) [Entitic vol] 11.4 fL Normal 9.5-13.5 [facility] Comment on above: Performed By: #### C BC #### [facility] [address] [address] [address] Malia Bustamante PLT 198 103/ul Normal 150-450 [facility] Comment on above: Performed By: #### C BC #### [facility] [address] [address] [address] Malia Bustamante RBC 3.22 106/ul Critically low 4.20-5.40 [facility] Comment on above: Performed By: #### C BC #### [facility] [address] [address] [address] Malia Bustamante WBC 6.4 103/ul Normal 4.0-11.0 [facility] Comment on above: Performed By: #### C BC #### [facility] [address] [address] [address] Malia Bustamante FREE THYROXINE INDEX T7on FTI 3.26 Normal 1.30-4.50 [facility] Comment on above: Performed By: #### L IPID, CMP, TSH, T7, BNP #### [facility] [address] [address] [address] Malia Bustamante T3U 35.0 % Normal 30.0-39.0 [facility] Comment on above: Performed By: #### L IPID, CMP, TSH, T7, BNP #### [facility] [address] [address] [address] Malia Bustamante T4 [Mass/Vol] 9.30 ug/dL Normal 4.80-13.90 [facility] Comment on above: Performed By: #### L IPID, CMP, TSH, T7, BNP #### [facility] [address] [address] [address] Malia Bustamante GLYCOHEMOGLOBIN A1Con 2022 ADA RECOMMENDATION SEE BELOW Normal [facility] Comment on above: Result Comment: ADA RECOMMENDED LIMIT 4.0 - 6.0 ADA THERAPEUTIC TARGET < 7.0 ACTION SUGGESTED > 7.0 Performed By: #### A 1C #### [facility] [address] [address] [address] Malia Bustamante Glucose [Mass/Vol] 97 mg/dL Normal [facility] Comment on above: Performed By: #### A 1C #### [facility] [address] [address] [address] Malia Bustamante HbA1c (Bld) [Mass fraction] 5.0 % Normal 4.5-6.2 [facility] Comment on above: Performed By: #### A 1C #### [facility] [address] [address] [address] Malia Bustamante IRONon 10-29-2022 Iron [Mass/Vol] 78.0 ug/dL Normal 50.0-170.0 [facility] Comment on above: Performed By: #### I KUN BLUE ####[facility] [id number] [address]. Malia Bustamante LIPID PROFILEon 10-29-2022 CHOL-HDL RATIO NORM SEE BELOW Normal [facility] Comment on above: Result Comment: 3.3 - 4.4 LOW RISK 4.4 - 7.1 AVERAGE RISK 7.1 - 11.0 MODERATE RISK >11.0 HIGH RISK Performed By: #### L IPID, CMP, TSH, T7, BNP #### [facility] [address] [address] [address] Malia Bustamante Cholesterol [Mass/Vol] 131 mg/dL Normal <=200 [facility] Comment on above: Performed By: #### L IPID, CMP, TSH, T7, BNP #### [facility] [address] [address] [address] Malia Bustamante Cholesterol in HDL [Mass/Vol] 51 mg/dL Normal 40-60 [facility] Comment on above: Performed By: #### L IPID, CMP, TSH, T7, BNP #### [facility] [address] [address] [address] Malia Bustamante Cholesterol in LDL [Mass/Vol] 59.0 mg/dL Normal [facility] Comment on above: Performed By: #### L IPID, CMP, TSH, T7, BNP #### [facility] [address] [address] [address] Malia Bustamante Cholesterol.total/C holesterol in HDL [Mass ratio] 2.6 {ratio} Normal [facility] Comment on above: Performed By: #### L IPID, CMP, TSH, T7, BNP #### [facility] [address] [address] [address] Malia Bustamante HDL NORMAL > or = 60 mg/dl - LO W CARDIOVASCULAR RISK <40 mg/dl - HIGH CARDIOVASCULAR RISK Normal [facility] Comment on above: Performed By: #### L IPID, CMP, TSH, T7, BNP #### [facility] [address] [address] [address] Malia Bustamante LDL CALC NORMAL SEE BELOW Normal [facility] Comment on above: Result Comment: <100 mg/dl OPTIMAL 100 - 129 mg/dl NEAR OR ABOVE OPTIMAL 130 - 159 mg/dl BORDERLINE HIGH 160 - 189 mg/dl HIGH >190 mg/dl VERY HIGH Performed By: #### L IPID, CMP, TSH, T7, BNP #### [facility] [address] [address] [address] Malia Bustamante Triglyceride [Mass/Vol] 105 mg/dL Normal <=150 [facility] Comment on above: Performed By: #### L IPID, CMP, TSH, T7, BNP #### [facility] [address] [address] [address] Malia Bustamante VLDL CALC 21.0 mg/dL Normal [facility] Comment on above: Performed By: #### L IPID, CMP, TSH, T7, BNP #### [facility] [address] [address] [address] Malia Bustamante PROF 14(COMP METB)on 023 Albumin [Mass/Vol] 3.8 g/dL Normal 3.4-5.0 [facility] Comment on above: Performed By: #### L IPID, CMP, TSH, T7, BNP #### [facility] [address] [address] [address] Malia Bustamante Albumin/Globulin [Mass ratio] 1.2 {ratio} Normal [facility] Comment on above: Performed By: #### L IPID, CMP, TSH, T7, BNP #### [facility] [address] [place] [address] Dr. Malia Bustamante ALP [Catalytic activity/Vol] 53 U/L Normal 46-116 [facility] Comment on above: Performed By: #### L IPID, CMP, TSH, T7, BNP #### [facility] [address] [place] [address] Dr. Malia Bustamante ALT [Catalytic activity/Vol] 16 U/L Normal 14-59 [facility] Comment on above: Performed By: #### L IPID, CMP, TSH, T7, BNP #### [facility] [address] [place] [address] Dr. Malia Bustamante Anion gap [Moles/Vol] 15.0 mmol/L Normal [facility] Comment on above: Performed By: #### L IPID, CMP, TSH, T7, BNP #### [facility] [address] [place] [address] Dr. Malia Bustamante AST [Catalytic activity/Vol] 18 U/L Normal 15-37 [facility] Comment on above: Performed By: #### L IPID, CMP, TSH, T7, BNP #### [facility] [address] [place] [address] Dr. Malia Bustamante Bilirubin [Mass/Vol] 0.4 mg/dL Normal 0.2-1.0 [facility] Comment on above: Performed By: #### L IPID, CMP, TSH, T7, BNP #### [facility] [address] [place] [address] Dr. Malia Bustamante Calcium [Mass/Vol] 10.3 mg/dL Critically high 8.5-10.1 [facility] Comment on above: Performed By: #### L IPID, CMP, TSH, T7, BNP #### [facility] [address] [place] [address] Dr. Malia Bustamante Chloride [Moles/Vol] 110 mmol/L Critically high 98-107 [facility] Comment on above: Performed By: #### L IPID, CMP, TSH, T7, BNP #### [facility] [address] [address] [address] Malia Bustamante CO2 [Moles/Vol] 21.6 mmol/L Normal 21.0-32.0 [facility] Comment on above: Performed By: #### L IPID, CMP, TSH, T7, BNP #### [facility] [address] [place] [address] Dr. Malia Bustamante Creatinine [Mass/Vol] 1.53 mg/dL Critically high 0.55-1.02 [facility] Comment on above: Performed By: #### L IPID, CMP, TSH, T7, BNP #### [facility] [address] [place] [address] Dr. Malia Bustamante EGFR-AF NIUEAN 40 mL/min/1.73m2 Critically low >=60 [facility] Comment on above: Performed By: #### L IPID, CMP, TSH, T7, BNP #### [facility] [address] [place] [address] Dr. Malia Bustamante EGFR-NON AF NIUEAN 33 mL/min/1.73m2 Critically low >=60 [facility] Comment on above: Performed By: #### L IPID, CMP, TSH, T7, BNP #### [facility] [address] [place] [address] Dr. Malia Bustamante Globulin (S) [Mass/Vol] 3.2 g/dL Normal [facility] Comment on above: Performed By: #### L IPID, CMP, TSH, T7, BNP #### [facility] [address] [place] [address] Dr. Malia Bustamante Glucose [Mass/Vol] 106 mg/dL Normal 74-106 [facility] Comment on above: Performed By: #### L IPID, CMP, TSH, T7, BNP #### [facility] [address] [address] [address] Malia Bustamante Potassium [Moles/Vol] 4.6 mmol/L Normal 3.5-5.1 [facility] Comment on above: Performed By: #### L IPID, CMP, TSH, T7, BNP #### [facility] [address] [address] [address] Malia Bustamante Protein [Mass/Vol] 7.0 g/dL Normal 6.4-8.2 [facility] Comment on above: Performed By: #### L IPID, CMP, TSH, T7, BNP #### [facility] [address] [place] [address] Dr. Malia Bustamante Sodium [Moles/Vol] 142 mmol/L Normal 136-145 [facility] Comment on above: Performed By: #### L IPID, CMP, TSH, T7, BNP #### [facility] [address] [place] [address] Dr. Malia Bustamante Urea nitrogen [Mass/Vol] 38.0 mg/dL Critically high 7.0-18.0 [facility] Comment on above: Performed By: #### L IPID, CMP, TSH, T7, BNP #### [facility] [address] [place] [address] Dr. Malia Bustamante Urea nitrogen/Creatinine [Mass ratio] 24.8 mg/mg Normal [facility] Comment on above: Performed By: #### L IPID, CMP, TSH, T7, BNP #### [facility] [address] [place] [address] Dr. Malia Bustamante TSHon 10-29-2022 TSH 2.124 uIU/mL Normal 0.358-3.740 [facility] Comment on above: Performed By: #### L IPID, CMP, TSH, T7, BNP #### [facility] [address] [place] [address] Dr. Malia Bustamante VITAMIN D 25 OHon 10-29-2022 VIT D 25-OH 69.6 ng/mL Normal [facility] Comment on above: Performed By: #### Kaylie BLUE VITAD ####[facility] [address] [address]Dr. Malia Bustamante VIT D RANGES SEE BELOW Normal [facility] Comment on above: Result Comment: <20 ng/mL Vit D deficient 20 - <30 ng/mL Vit D insufficient 30 - 100 ng/mL Vit D sufficient >100 ng/mL Potential Toxicity Performed By: #### I MIRZA, VITAD ####[facility] [id number] [address]Dr. Malia Bustamante CALCIUMon 09-05-2022 Calcium [Mass/Vol] 10.5 mg/dL Critically high 8.5-10.[address] [facility] Comment on above: Performed By: #### C Marbella, CREA ####[facility] [id number] [place], [place] [address]Dr. Malia Bustamante CREATININEon 09-05-2022 Creatinine [Mass/Vol] 1.60 mg/dL Critically high 0.55-1.02 [facility] Comment on above: Performed By: #### C Marbella, CREA ####[facility] [address] [address]Dr. Malia Bustamante EGFR-AF NIUEAN 38 mL/min/1.73m2 Critically low >=60 [facility] Comment on above: Performed By: #### C Marbella, CREA ####[facility] [id number] [address]Dr. Malia Bustamante EGFR-NON AF NIUEAN 31 mL/min/1.73m2 Critically low >=60 [facility] Comment on above: Performed By: #### C A, CREA ####[facility] [id number] [address]Dr. Malia Bustamante MG MAMM SCREEN 3D JUAN JOSE CADon 05-25-2022 MG MAMM SCREEN 3D JUAN JOSE CAD Patient: LIZABETH MONTANEZ Exam Date: 05/25/2022 : 1945 Gender:F Ordering : DR ISAK BONE . Admission #: [id number] Family : Order #: [id number] CLICK HERE TO VIEW EXAM RADIOLOGY REPORT [...] breast cancer at age 61. LOCATION: [facility] BREAST COMPOSITION: Heterogeneously dense,which may obscure small [...] M.D. on 05/25/2022 at 14:19 Normal [facility] Encounters Encounter Date Encounter Type Care Provider Facility Start: 11-17-2024 End: 11-17-2024 ambulatory [facility] Start: 08-13-2024 End: 08-13-2024 ambulatory [facility] Start: 08-13-2024 ambulatory [facility] Start: 05-15-2024 End: 05-15-2024 ambulatory [facility] Start: 03-12-2024 End: 03-12-2024 ambulatory [facility] Start: 03-02-2024 End: 03-02-2024 ambulatory [facility] Start: 02-06-2024 ambulatory [facility] Start: 01-24-2024 Evaluation and manag ement of inpatient [facility] Start: 01-24-2024 End: 01-30-2024 Evaluation and management of inpatient [facility] Start: 01-16-2024 End: 01-16-2024 ambulatory [facility] Start: 01-16-2024 Encounter for preprocedural laboratory examination [facility] Start: 01-07-2024 End: 01-07-2024 [facility] Start: 11-28-2023 End: 11-28-2023 ambulatory [facility] Start: 11-28-2023 End: 11-28-2023 ambulatory [facility] Start: 02-27-[address] ISAK BONE . Facili ty:[facility] Start: 12-28-2022 Encounter for other preprocedural examination YENI UGALDE [facility] Start: 12-26-2022 End: 12-27-2022 ambulatory YENI [...] ISAK BONE . Facility:[facility] Start: 10-28-2017 Ambulatory [facility] Start: 06-06-2017 End: 06-07-2017 Ambulatory DEFAULT PHYSICIAN Facility:[facility] Procedures Date Procedure Procedure Detail Performing Clinician Start: 05-15-2024 Follow-up visit Follow-up YENI UGALDE Payers Date Payer Category Payer Medicare [id number] 1958 Self-pay 1945 Unknown [id number] 2.16.84 [id number] 1945 Unknown [id number] 2.16.84 [id number] 1945 Unknown [id number] 2.16.84 [id number] 1945 Unknown [id number] 2.16.84 [id number] 1945 Unknown [id number] 2.16.84 [id number] 1945 Unknown [id number] 2.16.84 [id number] 1945 Unknown [id number] 2.16.84 [id number] 1945 Unknown [id number] 2.16.84 [id number] 1945 Unknown [id number] 2.16.84 [id number] Unknown Clinical Notes 11-28-2023 to 11-17-2024 Note [...] provided. Patient verbalizes understanding Yeni Ugalde MD [facility] 08-13-2024 Note Orthopedic Surgery Subjective 01/24/2024 Total [...] straightens out her leg and moves it [id number] she is able to stand up without [...] in 1 for reevaluation and repeat x-rays rAi Dey MD Orthopaedic Surgery PGY-3 08/13/24 12:15 [...] be an additional personal documentation from me. [facility] 05-15-2024 [facility] UTP CARDIOLOGY PROGR ESS [...] provided. Patient verbalizes understanding Yeni Ugalde MD [facility] 03-12-2024 Note Orthopedic Surgery Subjective 01/24/2024 Total [...] ensure accurate documentation. Additional Comments: none [facility] 02-06-2024 Note Orthopedic Surgery Subjective 01/24/2024 Total [...] Imaging: No imaging to review Assessment/Plan Lizabeth Montnaez is a 78 y.o. year old female [...] be an additional personal documentation from me. [facility] 01-30-2024 Note Physical Therapy Physical Therapy Treatment [...] T-Score: 18 - (more content not included)... [facility] 01-30-2024 Note ------ Attestation signed by Mynor [...] Ruslan Ortez MD Orthopaedic Surgery, PGY-V 01/30/2024 [facility] 01-30-2024 Note Followed up with pt on SNF vs. HHC and pt decided to discharge home today w/ HHC. Requested [facility], referral sent. UPDATE 11:10AM- [facility] has accepted. Sent final AVS. [facility] 01-30-2024 Note Occupational Therapy Occupational Therapy Treatment [...] in chair at [facility] OT Discharge Recommendation Jail Facility vs home with assist OT Equipment [...] change brief. Pt has sock aid and bobbin washer at home to use with LB dressing [...] to complete g (more content not included)... [facility] 01-29-2024 Note Discharge Planning U pdate OTM team notified that IPR placement was denied. I (high school social science teacher) along with C met with patient bedside to discuss discharge planning. Patient states she is feeling good and believes she should be able to return home. We took the time to explain SNF & HHC to patient. She reports she has a history of HHC through [facility]. She was encouraged to think about the direction she would like to go and floor high school social science teacher will follow up tomorrow. She showed understanding and was agreeable. She was also provided a SNF list to review. After today's conversation, it appears that patient is leaning towards going home, with HHC assistance. New discharge disposition: HHC vs. SNF [facility] 01-29-2024 Note Sent updates to [facility] IPR and awaiting pre-cert which was started on 01/26. [facility] 01-29-2024 Note GIM Inpatient Progre ss Note [...] , ABGPO2 , ABGHCO3 , ABGBASEDEFIC , [id number] , ABGOXYGENSOU No lab exists for component: [...] and Entresto. 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 Discharge planning to [facility] MD, PGY-2, DEPARTMENT OF INTERNAL M (more content not included)... [facility] 01-28-2024 Note ------ Attestation signed by Landry [...] [facility]ane[facility] - 78 [facility] 1945 [phone] Date of Admission - 01/24/2024 5:39 AM [...] , ABGPO2 , ABGHCO3 , ABGBASEDEFIC , [id number] , ABGOXYGENSOU No lab exists for component: [...] A-fib (on EQ) (more content not included)... [facility] 01-28-2024 Note Physical Therapy Physical Therapy Treatment [...] Help from ano (more content not included)... [facility] 01-28-2024 Note Occupational Therapy Occupational Therapy Treatment [...] at [facility] Objective 2 OT Discharge Recommendation Jail Facility OT Equipment Recommendations TBD General Pain [...] to recliner with hands on for safety. Net Developer Architect notes pt requires increased time. No LOB [...] with no assistance (more content not included)... [facility] 01-27-2024 Note DISCHARGE PLANNING U ALEE Lott (high school social science teacher) spoke to admissions team at [facility]. They confirmed that they submitted for insurance authorization. Updates sent via [employer]. Discharge barriers: medical readiness/stability, insurance authorization [facility] 01-27-2024 Note Physical Therapy Physical Therapy Treatment [...] Hyponatremia Hypomagnesemia Stage 4 chronic kidney disease ([facility]/HCC) Objective General Visit Information: PT Last Visit [...] Assistance 2: Conta (more content not included)... [facility] 01-27-2024 Note ------ Attestation signed by Isak [...] Montanez Age - 78 [facility]. [facility] 1945 [id number] Date of Admission - 01/24/2024 5:39 AM [...] , ABGPO2 , ABGHCO3 , ABGBASEDEFIC , [id number] , ABGOXYGENSOU No lab exists for component: [...] Mild hyponatremia, likel (more content not included)... [facility] 01-27-2024 Note Occupational Therapy Occupational Therapy Treatment Note Patient Name: Lizabeth Montanez Patient Date of : 1945 Today's Date: 01/27/24 Time in: 1022 Time Out: 1120 Total Time: 58 Active Ambulatory Problems Diagnosis Date Noted Chronic atrial fibrillation (CMS/HCC) 03/09/2008 Disorder of cardiovascular system 03/15/2008 Left ventricular hypertrophy 03/09/2008 Obesity 03/24/2010 Palpitations 08/18/2013 Pulmonary hypertension ([facility]/HCC) 06/15/2013 Warfarin therapy started 03/23/2008 Nonrheumatic mitral valve regurgitation 11/07/2022 Abnormal stress test 12/20/2022 Osteoarthritis of knee 04/16/2023 S/P total knee arthroplasty, left 07/12/2023 Hx of total knee arthroplasty, left 07/27/2023 COVID-19 09/13/2023 Right knee pain 12/07/2023 Resolved Ambulatory Problems Diagnosis Date Noted No Resolved Ambulatory Problems Past Medical History: Diagnosis Date Atrial fibrillation ([facility]) Hypertension OA (osteoarthritis) PONV (postoperative nausea and vomiting) OT Received On 01/27/24 Subjective I had my other knee done in June and its doing great! Objective 1 Pt asked to return to bed at [facility] (Upon arrival pt was up in chair) Objective 2 OT Discharge Recommendation Jail Facility OT Equipment Recommendations TBD General Pain [...] 01/25/24 [place] (more content not included)... [facility] 01-26-2024 Note Followed up with pt on IPR decision. [facility] agreeable [facility] Advised pt of referral/pre-cert process and also warned of potential transport costs going that far. Pt stated she may elect to have family transport if able. [facility] 01-26-2024 Note ------ Attestation signed by Isak [...] - 78 y.o. - 1945 N - [id number] Date of Admission - 01/24/2024 5:39 AM [...] , ABGPO2 , ABGHCO3 , ABGBASEDEFIC , [id number] , ABGOXYGENSOU No lab exists for component: [...] EQ) HFpEF Mi (more content not included)... 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 [facility] 01-26-2024 Note ------ Attestation signed by Mynor [...] Le MD Orthopaedic Surgery, PGY-1 Ortho Pager [phone] 01/26/24 6:44 AM I am available via [facility] 6a-6p. May contact the on-call resident with any concerns via the Orthopaedic pager at any time. 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 Pt stated she would like to discuss this with her family tonight before making a decision. Advised her we will follow up tomorrow. [facility] 01-25-2024 Note Occupational Therapy Occupational Therapy Evaluation [...] a 78 y.o. female who presents to [facility] for R TKA which was performed on [...] Level of Function Prior Function Level of [place]: Independent with ADLs and functional transfers, Independent [...] Eating meals?: None (Independent) Total Score OT [facility]: 17 Assessment/Plan OT Assessment OT Impairments: Decre (more content not included)... [facility] 01-25-2024 Note Physical Therapy Rosemary zavala Patient Name: Lizabeth Montanez Today's Date: 01/25/2024 Admit Date: 01/24/2024 Time In: 8:47 AM Time Out: 9:09 AM Cumulative minutes: 22 minutes Billed minutes: 22 minutes History of present illness Lizabeth Montanez is a 78 y.o. female who presents to [facility] for R TKA which was performed on [...] Help from an (more content not included)... [facility] 01-25-2024 Note ------ Attestation signed by Mynor [...] Le MD Orthopaedic Surgery, PGY-1 Ortho Pager [phone] 01/25/24 8:16 AM I am available via [facility] 6a-6p. May contact the on-call resident with any concerns via the Orthopaedic pager at any time. [facility] 01-24-2024 Note Patient: Lizabeth nicolas Procedure Summary Date: 01/24/24 Room / Location: [facility] OPERATING ROOM 02 / [facility] Operating Room Anesthesia Start: 0738 Anesthesia Stop: [...] per anesthesia protocol. No notable events documented. [facility] 01-24-2024 Note Patient: Lizabeth nicolas Procedure Summary Date: 01/24/24 Room / Location: [facility] OPERATING ROOM 02 / [facility] Operating Room Anesthesia Start: 737 Anesthesia Stop: Procedure: TOTAL KNEE ARTHROPLASTY (Right: Knee) Diagnosis: Primary osteoarthritis of right knee (Primary osteoarthritis of right knee [M17.11]) Surgeons: Mynor Gallegos MD Responsible Provider: Wali Chavez MD Anesthesia Type: general ASA Status: 3 Anesthesia Post Transport Note Transport to: PACU O2 Route: room air Patient Monitor: direct observation Transport: uneventful Patient condition is: stable [facility] 01-24-2024 Note Airway Date/Time: 01/24/2024 7:47 AM Urgency: elective General Information and Staff Patient location during procedure: OR Anesthesiologist: Wali Chavez MD Resident/FOOD PRODUCTS TESTER/CAA: URBENS Dougherty Performed: resident/FOOD PRODUCTS TESTER/CAA Indications and Patient Condition Indications for airway [...] 1 Number of other approaches attempted: 0 [facility] 01-24-2024 Note Patient: Lizabeth nicolas Procedure Information Date/Time: 01/24/24 0730 Procedure: TOTAL KNEE ARTHROPLASTY (Right: Knee) - RICHARD AND NEPHEW NOTIFIED 01/20 Location: [facility] OPERATING ROOM 02 / [facility] Operating Room Surgeons: Mynor Gallegos MD Relevant [...] Plan discussed with CAA. Additional Equipment Requests [facility] 01-16-2024 Note I met with the jake kingston for pre-operative education and discharge planning prior to her joint replacement surgery. The patient would like to discharge to home following her release from the hospital. But she also stated she may like to go to a rehab if physical therapy recommends she should. She would HHC with [facility] if she discharges home but if she needs a rehab she would like to go to [place]. Patient is aware she will be evaluated after surgery to see if she is safe to discharge home or not. She already has a rolling walker, raised toilet seat and shower chair. [facility] 01-16-2024 Note Orthopedic Surgery Subjective Chief complaint: [...] benefit the patient's ability to complete ADLs. 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 Do not wear perfume, make-up, nail uzbek, or lotions on the day of your [...] need to make any changes, please call [phone]. Notify your surgeon if you develop any illness such as a cold, cough, fever, sore throat or vomiting between now and your surgery. Thank you for entrusting us with your care. [facility] Surgical Services Team [facility] 01-07-2024 Note UTP CARDIOLOGY PROGR ESS NOTE [...] provided. Patient verbalizes understanding Yeni Ugalde MD [facility] 11-28-2023 Note Orthopedic Surgery Subjective Chief complaint: [...] Additional Comments: none Gertrude Alan, MS3 [facility] [employer] 11/28/2023 [facility] Summary Purpose Family History No Family History Records FoundNo Family History Records FoundNo Family History Records FoundNo Family History Records Found Advance Directives No Advanced Directives Records FoundNo Advanced Directives Records FoundNo Advanced Directives Records FoundNo Advanced Directives Records Found Additional Source Comments INFORMATION SOURCE (unrecogn ized section and content) DATE CREATED AUTHOR 03/24/2018 [facility] DATE CREATED AUTHOR AUTHOR'S ORGANIZ ATION 03/26/2018 [facility] DATE CREATED AUTHOR AUTHOR'S ORGANIZ ATION 03/08/2023 [facility] DATE CREATED AUTHOR AUTHOR'S ORGANIZ ATION 11/18/2024 [facility] FOR RECORDS PERTAINING TO PATIENTS [...] BE BASED ON THE PRIMARY CLINICAL RECORDS. [employer] provides no warranty or guarantee of the accuracy or completeness of information in this document.
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
== END 2025-05-24 08:04 | disposition home or self-care (01) ==
LOC: CARD 08:04
PROVIDERS: PCP Family Medicine; Visit Provider Internal Medicine Cardiovascular Disease
DX: I34.0 Nonrheumatic mitral (valve) insufficiency (principal)
CPT/HCPCS: 93306

== ENCOUNTER 2025-06-04 08:27 | Outpatient (OUT) | payer MEDICARE, SELFPAY ==
--- OUTSIDE RECORDS SUMMARY | 2025-06-04 08:44 | XMS_ITS | CCD ---
Author Organization [facility] Care Team Providers Care Network Field Engineer Name Role Phone PHYSICIAN, DEFAULT Unavailable Unavailable [...] DR PARISI Admitting Unavailable HOY ., DR PRAISI Admitting Unavailable HOY ., DR PARISI Attending [...] DR PARISI Primary Care Unavailable ZIJOSEER, DR DEVAUGHN Serrato Consulting Unavailable ALGHOTHANI, MOHAMARadha Admitting Unavailable HOY ., DR PARISI Primary Care Unavailable ALGHOTHRICK, DAVE Attending Unavailable ALGHOTHANI, MOHANA MARÍAD Consulting Unavailable HOY ., DR PARISI Admitting Unavailable HOY ., DR PARISI Primary Care Unavailable HOY ., DR PARISI Attending Unavailable HOY ., DR PARISI Consulting Unavailable PAMELA PECK Consulting Unavailable JOSE CAMPBELL Attending Unavailable ALGHODALI, DAVE Attending Unavailable PATRICIA CHAMPION Referring Unavailable PATRICIA CHAMPION Attending Unavailable Allergies Allergy Classification Reported Allergen(s) Allergy Type Date of Onset Reaction(s) Facility (4 sources) Penicillins; Translations: [PENICILLINS] Drug allergy (disorder) 08-10-2009 [facility] Repository Problems Active Problems Problem Classification Problem Date Documented Date Episodic/Chronic Chronic kidney disease (2 sources) Chronic kidney disease, stage 1; Translations: [Chronic kidney disease, unspecified] Onset: 12-07-2022 Chronic Congestive heart failure; nonhypertensive (1 source) Unspecified diastolic (congestive) heart failure; Translations: [UNSPECIFIED DIASTOLIC HEART FAILURE] Onset: 10-31-2022 Chronic Coronary atherosclerosis and other heart disease (1 source) Atherosclerotic heart disease of cheesh-na coronary artery without angina pectoris; Translations: [ASHD [place] W/O ANGINA PECTORIS] Onset: 10-31-2022 Chronic Disorders of lipid metabolism (1 source) Hyperlipidemia, unspecified; Translations: [HYPERLIPIDEMIA UNSPECIFIED] Onset: 10-31-2022 Chronic Essential hypertension (2 sources) Essential (primary) hypertension; Translations: [Essential (primary) hypertension] Onset: 05-28-2025 Chronic Heart valve disorders (2 sources) Nonrheumatic [...] [VITAMIN D DEFICIENCY UNSPECIFIED] Onset: 10-29-2022 Chronic Osteoporosis (4 sources) Age-related osteoporosis without current pathological fracture; Translations: [AGE-REL OSTEOPOR W/O CURR PATH FX] Onset: 09-05-2022 Chronic Other and ill-defined heart disease (3 sources) Cardiomegaly; Translations: [CARDIOMEGALY] Onset: 10-31-2022 Chronic Other connective tissue disease (2 sources) Presence of right artificial knee joint; Translations: [Presence of right artificial knee joint] Onset: 02-09-2024 Chronic Pulmonary heart disease (3 sources) Pulmonary hypertension, unspecified; Translations: [PULMONARY HYPERTENSION UNSPECIFIED] Onset: 10-31-2022 Chronic Unclassified (1 source) Other abnormal findings on cytological and histological examination of urine; Translations: [OTH ABN FIND CYTLG HISTLG EXM URINE] Onset: 12-07-2022 Unclassified (2 sources) Chronic atrial fibrillation, unspecified; Translations: [Chronic atrial fibrillation, unspecified] Onset: 01-27-2024 Urinary tract infections (1 source) Urinary tract infection, site not specified; Translations: [UTI SITE NOT SPECIFIED] Onset: 12-07-2022 Episodic Past or Other Problems Problem Classification Problem Date Documented Da te Episodic/Chronic Deficiency and other anemia (1 source) Anemia, unspecified; Translations: [ANEMIA UNSPECIFIED] Onset: 10-31-2022 Episodic Diabetes mellitus without complication (1 source) Other abnormal glucose; Translations: [OTHER ABNORMAL GLUCOSE] Onset: 10-31-2022 Episodic Nonspecific chest pain (1 source) Chest pain, unspecified; Translations: [CHEST PAIN UNSPECIFIED] Onset: 11-04-2022 Episodic Other lower respiratory disease (4 sources) Shortness of breath; Translations: [SHORTNESS OF BREATH] Onset: 11-01-2022 Episodic Other screening for suspected conditions (not [...] Value Interpretation Reference Range Facility Office Visiton 05-28-2025 Follow-up visit [id number] Mignon Montanez 1945 F Date Provider Department Center 05/28/2025 [id number] CAMPBELL Family History Problem Relation Age of Onset Other Mother Other Mother Heart attack Father's Sister Family Status - Relation Status Age at Mother Father Father's Sister Level of Service:05378 [place] OFFICE/OUTPATIENT ESTABLISHED MOD MDM 30 MIN Reason for Visit and Comments: 6 month follow up with Echo [Other] Atrial Fibrillation [80] Left ventricular hypertorophy [Other] Pulmonary Hypertension [818] Palpitations [025082] Obesity [[id number]] Stage 4 Kidney disease [Other] Nonrheumatic mitral valve regurgitation [Other] Anticoagulation [8] Normal [facility] Orders Onlyon 05-24-2025 Orders Only [id number] Mignon Montanez n E 1945 F Date Provider Department Center 05/24/2025 [id number], HISTORICAL MARTIN [facility] Family History Problem Relation Age of Onset Other Mother Other Mother Heart attack Father's Sister Family Status - Relation Status Age at Mother Father's Sister Normal [facility] Office Visiton 11-17-2024 Follow-up visit [id number] Mignon Montanez E 1945 F Date Provider Department Center 11/17/2024 [id number] UGALDE MARTIN [facility] Family History Problem Relation Age of Onset Other Mother Other Mother Heart attack Father's Sister Family Status - Relation Status Age at Mother Father's Sister Level of Service:75541 [place] OFFICE/OUTPATIENT ESTABLISHED LOW MDM 20 MIN Normal [facility] Follow-Upon 08-13-2024 Follow-Up [id number] Mignon Montanez E 1945 F Date Provider Department Center 08/13/2024 293-PATRICIA CHAMPION MP ORTHO MPORTHO Family History Problem Relation Age of Onset Other Mother Other Mother Heart attack Father's Sister Family Status - Relation Status Age at Mother Father's Sister Level of Service:88381 [place] OFFICE/OUTPATIENT ESTABLISHED LOW MDM 20 MIN () Reason for Visit and Comments: Pain [136] - R TKA FOLLOW UP, C/O HAVING PROBLEMS GETTING UP FROM SITTING POSITION Follow-up [157906] - R TKA FOLLOW UP, C/O HAVING PROBLEMS GETTING UP FROM SITTING POSITION Normal [facility] XR KNEE HOMERO 3 Von 02-27-2023 XR KNEE HOMERO 3 V EXAMINATION: XR KNEE HOMERO 3 V HISTORY: Osteoarthritis of knee ; chronic bilateral knee pain COMPARISON: XR knee bilateral 04/20/2021 FINDINGS: RIGHT FINDINGS: BONES: Complete loss of the anterior, medial, lateral joint spaces with pnvw-kj-caav articulation and marked sclerosis. Lateral subluxation of the tibial plafond in relation to the femoral condyles. Large periarticular degenerative osteophytes involving all 3 compartments. SOFT TISSUES: No visible soft tissue swelling. OTHER: Large joint effusion. LEFT FINDINGS: BONES: Marked narrowing of the anterior, medial, lateral joint spaces with near xvea-jl-tuxb articulation and subchondral sclerosis. Prominent lateral subluxation of the tibial plafond in relation to the femoral condyles. Large periarticular degenerative osteophytes involving all 3 compartments. SOFT TISSUES: No visible soft tissue swelling. OTHER: Large joint effusion. IMPRESSION: RIGHT CONCLUSION: Advanced degenerative joint disease. LEFT CONCLUSION: Advanced degenerative joint disease. Electronically authenticated by: DEVAUGHN RICHARDS Date: 2023-02-27 16:24 Normal [facility] CBC AUTO DIFFon 12-26-2022 BASO # 0.0 103/ul Normal 0.0-0.1 [facility] Comment on above: Performed By: #### C BC ####[facility] [address] [place] [address]Dr. Malia Bustamante Basophils/100 WBC (Bld) 0.5 % Normal 0.2-2.0 [facility] Comment on above: Performed By: #### C BC ####[facility] [address] [place], [place] [address]Dr. Malia Bustamante EO # 0.2 103/ul Normal 0.0-0.7 [facility] Comment on above: Performed By: #### C BC ####[facility] Ek[address] [place], [place] [address]Dr. Malia Bustamante Eosinophils/100 WBC (Bld) 3.2 % Normal 0.9-7.0 [facility] Comment on above: Performed By: #### C BC ####[facility] [address] [place] [address]Dr. Malia Bustamante Erythrocyte distribution width (RBC) [Ratio] 13.5 % Normal 11.0-15.0 [facility] Comment on above: Performed By: #### C BC ####[facility] [address] [place], [place] [address]Dr. Malia Bustamante Hematocrit (Bld) [Volume fraction] 31.8 % Critically low 36.0-48.0 [facility] Comment on above: Performed By: #### C BC ####[facility] [address] [place] [id number]. Malia Bustamante Hemoglobin (Bld) [Mass/Vol] 10.1 g/dL Critically low 12.0-16.0 [facility] Comment on above: Performed By: #### C BC ####[facility] [address] [place] [id number]. Malia Bustamante IG # 0.02 10e3/ul Normal 0.00-0.03 [facility] Comment on above: Performed By: #### C BC ####[facility] [address] [place] [id number]. Malia Bustamante IG % 0.4 % Normal 0.0-0.5 [facility] Comment on above: Performed By: #### C BC ####[facility] [address] [place] [address]Dr. Malia Bustamante LYMPH # 0.8 103/ul Critically low 1.2-3.8 [facility] Comment on above: Performed By: #### C BC ####[facility] [address] [place] [address]Dr. Malia Bustamante Lymphocytes/100 WBC (Bld) 13.8 % Critically low 20.5-60.0 [facility] Comment on above: Performed By: #### C BC ####[facility] [address] [place] [address]Dr. Malia Bustamante MANUAL DIFF REQ NO Normal [facility] Comment on above: Performed By: #### C BC ####[facility] [address] [place] [address]Dr. Malia Bustamante MCH (RBC) [Entitic mass] 32.0 pg Normal 26.7-34.0 [facility] Comment on above: Performed By: #### C BC ####[facility] [address] [place] [address]Dr. Malia Bustamante MCHC (RBC) [Mass/Vol] 31.8 g/dL Normal 29.9-35.2 [facility] Comment on above: Performed By: #### C BC ####[facility] [address] [place] [id number]. Malia Bustamante MCV (RBC) [Entitic vol] 100.6 fL Critically high 81.0-99.0 [facility] Comment on above: Performed By: #### C BC ####[facility] [address] [place] [address]Dr. Malia Bustamante MONO # 0.4 103/ul Normal 0.3-0.8 [facility] Comment on above: Performed By: #### C BC ####[facility] [address] [place] [address]Dr. Malia Bustamante Monocytes/100 WBC (Bld) 7.9 % Normal 1.7-12.0 [facility] Comment on above: Performed By: #### C BC ####[facility] [address] [place] [address]Dr. Malia Bustamante NEUT # 4.2 103/ul Normal 1.4-6.5 [facility] Comment on above: Performed By: #### C BC ####[facility] [address] [place] [address]Dr. Malia Bustamante Neutrophils/100 WBC (Bld) 74.2 % Normal 43.0-75.0 [facility] Comment on above: Performed By: #### C BC ####[facility] [address] [place] [id number]. Malia Bustamante Platelet mean volume (Bld) [Entitic vol] 11.2 fL Normal 9.5-13.5 [facility] Comment on above: Performed By: #### C BC ####[facility] [address] [place] [id number]. Malia Bustamante PLT 165 103/ul Normal 150-450 [facility] Comment on above: Performed By: #### C BC ####[facility] [address] [place] [id number]. Malia Bustamante RBC 3.16 106/ul Critically low 4.20-5.40 [facility] Comment on above: Performed By: #### C BC ####[facility] [address] [place] [address]Dr. Malia Bustamante WBC 5.6 103/ul Normal 4.0-11.0 [facility] Comment on above: Performed By: #### C BC ####[facility] Tj[address] [place], [place] [address]Dr. Malia Robby PROF CHEM 8 (BAS METB)on Anion gap [Moles/Vol] 16.3 mmol/L Normal [facility] Comment on above: Performed By: #### B MP ####[facility] Uuctbx[address] [place], [place] [address]Dr. Malia Robby Calcium [Mass/Vol] 11.1 mg/dL Critically high 8.5-10.1 [facility] Comment on above: Performed By: #### B MP ####[facility] Gpmnz[address] [place], [place] [address]Dr. Malia Bustamante Chloride [Moles/Vol] 113 mmol/L Critically high 98-107 [facility] Comment on above: Performed By: #### B MP ####[facility] [address] [place], [place] [address]Dr. Malia Robby CO2 [Moles/Vol] 22.9 mmol/L Normal 21.0-32.0 [facility] Comment on above: Performed By: #### B MP ####[facility] [address] [place], [place] [address]Dr. Malia Robby Creatinine [Mass/Vol] 1.84 mg/dL Critically high 0.55-1.02 [facility] Comment on above: Performed By: #### B MP ####[facility] Em[address] [place], [place] [address]Dr. Malia Bustamante EGFR-AF CHILEAN 32 mL/min/1.73m2 Critically low >=60 [facility] Comment on above: Performed By: #### B MP ####[facility] W[address]onrwfj[address] [place], [place] [address]Dr. Malia Bustamante EGFR-NON AF CHILEAN 27 mL/min/1.73m2 Critically low >=60 [facility] Comment on above: Performed By: #### B MP ####[facility] [address] [place], [place] [address]Cl. Malia Bustamante Glucose [Mass/Vol] 97 mg/dL Normal 74-106 [facility] Comment on above: Performed By: #### B MP ####[facility] [address] [place], [place] [address]Ap. Malia Bustamante Potassium [Moles/Vol] 5.2 mmol/L Critically high 3.5-5.1 [facility] Comment on above: Performed By: #### B MP ####[facility] [address] [place] [id number]. Malia Bustamante Sodium [Moles/Vol] 147 mmol/L Critically high 136-145 [facility] Comment on above: Performed By: #### B MP ####[facility] [address] [place] [id number]. Malia Bustamante Urea nitrogen [Mass/Vol] 42.0 mg/dL Critically high 7.0-18.0 [facility] Comment on above: Performed By: #### B MP ####[facility] [address] [place] [id number]. Malia Bustamante Urea nitrogen/Creatinine [Mass ratio] 22.8 mg/mg Normal [facility] Comment on above: Performed By: #### B MP ####[facility] [address] [place] [id number]. Malia Bustamante US KIDNEYS BLADDERon 12-08- 023 US KIDNEYS BLADDER US KIDNEYS BLADDER EXAM DATE: 12/08/2022 6:55 AM MST COMPARISON: None available. INDICATION: Chronic kidney disease. TECHNIQUE: Real-time ultrasound scanning of the kidneys and bladder was performed by the er medical technician. Geoscience Technician static images are submitted for review. FINDINGS: [...] PAMELA PECK Date: 2022-12-08 13:20 Normal [facility] CULTURE URINEon 12-01-2022 CULTURE URINE Culture Observations : LIGHT GROWTH OF MIXED GENITAL QUINTIN. NO POTENTIAL PATHOGENS SEEN. Normal [facility] Comment on above: Performed By: #### U RCX ####[facility] Wn[address] [place], [place] [address]Dr. Malia Bustamante MICROALBUMIN, RAND URon - mALB 1.7 mg/L Normal <=30.0 [facility] Comment on above: Performed By: #### M ALBR ####[facility] [address] [place], [place] [address]Dr. Malia Bustamante UA RANDOM W/MICROSCOPICon BACTERIA NONE SEEN Normal NONE SEEN [facility] Comment on above: Performed By: #### U AMIC ####[facility] Uqcc[address] [place], [place] [address]Dr. Malia Bustamante Bilirubin Ql (U) Negative Normal NEGATIVE [facility] Comment on above: Performed By: #### U AMIC ####[facility] [address] [place], [place] [address]Dr. Malia Bustamante CAST NONE SEEN Normal NONE SEEN [facility] Comment on above: Performed By: #### U AMIC ####[facility] [address] [place], [place] [address]Dr. Malia Bustamante Clarity (U) CLEAR Normal CLEAR [facility] Comment on above: Performed By: #### U AMIC ####[facility] [address] [place], [place] [address]Dr. Malia Bustamante Color (U) LT. YELLOW Normal YELLOW [facility] Comment on above: Performed By: #### U AMIC ####[facility] Tf[address]wt[address] [place], [place] [address]Dr. Malia Bustamante Crystals LM Nom (Urine sed) NONE SEEN Normal NONE SEEN [facility] Comment on above: Performed By: #### U AMIC ####[facility] [address] [place] [address]Dr. Malia Bustamante Epithelial cells LM Ql (Urine sed) FEW Abnormal NONE SEEN /RARE [facility] Comment on above: Performed By: #### U AMIC ####[facility] [address] [place] [address]Dr. Malia Butsamante Glucose Ql (U) Negative Normal NEGATIVE [facility] Comment on above: Performed By: #### U AMIC ####[facility] [address] [place] [address]Dr. Malia Bustamante Hemoglobin Ql (U) Negative Normal NEGATIVE [facility] Comment on above: Performed By: #### U AMIC ####[facility] [address] [place] [address]Dr. Malia Bustamante Ketones Ql (U) Negative Normal NEGATIVE [facility] Comment on above: Performed By: #### U AMIC ####[facility] S[address] [place], [place] [address]Dr. Malia Bustamante LEUKOCYTES Negative Normal NEGATIVE [facility] Comment on above: Performed By: #### U AMIC ####[facility] [address] [place] [address]Dr. Malia Bustamante MUCOUS NONE SEEN Normal NONE SEEN [facility] Comment on above: Performed By: #### U AMIC ####[facility] [address] [place] [address]Dr. Malia Bustamante Nitrite Ql (U) Negative Normal NEGATIVE [facility] Comment on above: Performed By: #### U AMIC ####[facility] [address] [place] [address]Dr. Malia Bustamante pH (U) 5.5 [pH] Normal 5-9 [facility] Comment on above: Performed By: #### U AMIC ####[facility] [address] [place] [address]Dr. Malia Bustamante RBC NONE SEEN Abnormal 0-2 [facility] Comment on above: Performed By: #### U AMIC ####[facility] [address] [place], [place] [address]Eh. Malia Bustamante SPEC GRAVITY 1.020 Normal 1.005-<=1.025 [facility] Comment on above: Performed By: #### U AMIC ####[facility] [address] [place], [place] [address]Ku. Malia Bustamante UA PROTEIN Negative Normal NEGATIVE/ TRACE [facility] Comment on above: Performed By: #### U AMIC ####[facility] [address] [place], [place] [address]Fe. Malia Bustamante Urobilinogen Qn (U) 0.2 {Álvaro'U}/dL Normal 0.2 - 1. 0 [facility] Comment on above: Performed By: #### U AMIC ####[facility] [address] [place] [id number]. Malia Bustamante WBC NONE SEEN Normal NONE SEEN [facility] Comment on above: Performed By: #### U AMIC ####[facility] [address] [place], [place] [address]Hm. Malia Bustamante ECHOCARDIO M/2D COMPLETEon 0 11-01-2022 ECHOCARDIO M/2D COMPLETE Patient: LIZABETH MONTANEZ Exam Date: 11/01/2022 : 1945 Gender:F Ordering : DR ISAK BONE . Admission #: [id number] Family : Order #: [id number] CLICK HERE TO VIEW EXAM ECHOCARDIOGRAM REPORT [...] M.D. on 11/02/2022 at 11:25 Normal [facility] INSULINon 10-30-2022 Insulin 11.5 uIU/mL Normal 2.6-24.9 [facility] Comment on above: Performed By: #### I NSULIN #### [facility] [address] [place] [address] Dr. Malia Bustamante BNPon 10-29-2022 Natriuretic peptide B (Bld) [Mass/Vol] 4315.0 pg/mL Critically high <=1,800.0 [facility] Comment on above: Performed By: #### L IPID, CMP, TSH, T7, BNP #### [facility] [address] [place] [address] Dr. Malia Bustamante CBC AUTO DIFFon 10-29-2022 BASO # 0.0 103/ul Normal 0.0-0.1 [facility] Comment on above: Performed By: #### C BC #### [facility] [address] [place] [address] Dr. Malia Bustamante Basophils/100 WBC (Bld) 0.6 % Normal 0.2-2.0 [facility] Comment on above: Performed By: #### C BC #### [facility] [address] [place] [address] Dr. Malia Bustamante EO # 0.1 103/ul Normal 0.0-0.7 [facility] Comment on above: Performed By: #### C BC #### [facility] [address] [place] [address] Dr. Malia Bustamante Eosinophils/100 WBC (Bld) 1.6 % Normal 0.9-7.0 [facility] Comment on above: Performed By: #### C BC #### [facility] [address] [place] [address] Dr. Malia Bustamante Erythrocyte distribution width (RBC) [Ratio] 13.1 % Normal 11.0-15.0 [facility] Comment on above: Performed By: #### C BC #### [facility] [address] [place] [address] Dr. Malia Bustamante Hematocrit (Bld) [Volume fraction] 31.3 % Critically low 36.0-48.0 [facility] Comment on above: Performed By: #### C BC #### [facility] [address] [place] [address] Dr. Malia Bustamante Hemoglobin (Bld) [Mass/Vol] 10.3 g/dL Critically low 12.0-16.0 [facility] Comment on above: Performed By: #### C BC #### [facility] [address] [place] [address] Dr. Malia Bustamante IG # 0.03 10e3/ul Normal 0.00-0.03 [facility] Comment on above: Performed By: #### C BC #### [facility] [address] [place] [address] Dr. Malia Bustamante IG % 0.5 % Normal 0.0-0.5 [facility] Comment on above: Performed By: #### C BC #### [facility] [address] [place] [address] Dr. Malia Bustamante LYMPH # 0.7 103/ul Critically low 1.2-3.8 [facility] Comment on above: Performed By: #### C BC #### [facility] [address] [place] [address] Dr. Malia Bustamante Lymphocytes/100 WBC (Bld) 10.1 % Critically low 20.5-60.0 [facility] Comment on above: Performed By: #### C BC #### [facility] [address] [place] [address] Dr. Malia Bustamante MANUAL DIFF REQ NO Normal [facility] Comment on above: Performed By: #### C BC #### [facility] [address] [place] [address] Dr. Malia Bustamante MCH (RBC) [Entitic mass] 32.0 pg Normal 26.7-34.0 [facility] Comment on above: Performed By: #### C BC #### [facility] [address] [place] [address] Dr. Malia Bustamante MCHC (RBC) [Mass/Vol] 32.9 g/dL Normal 29.9-35.2 [facility] Comment on above: Performed By: #### C BC #### [facility] [address] [place] [address] Dr. Malia Bustamante MCV (RBC) [Entitic vol] 97.2 fL Normal 81.0-99.0 [facility] Comment on above: Performed By: #### C BC #### [facility] [address] [place] [address] Dr. Malia Bustamante MONO # 0.5 103/ul Normal 0.3-0.8 [facility] Comment on above: Performed By: #### C BC #### [facility] [address] [place] [address] Dr. Malia Bustamante Monocytes/100 WBC (Bld) 7.3 % Normal 1.7-12.0 [facility] Comment on above: Performed By: #### C BC #### [facility] [address] [place] [address] Dr. Malia Bustamante NEUT # 5.2 103/ul Normal 1.4-6.5 [facility] Comment on above: Performed By: #### C BC #### [facility] Laboratory [address] [place] [address] Dr. Malia Bustamante Neutrophils/100 WBC (Bld) 79.9 % Critically high 43.0-75.0 [facility] Comment on above: Performed By: #### C BC #### [facility] [address] [place] [address] Dr. Malia Bustamante Platelet mean volume (Bld) [Entitic vol] 11.4 fL Normal 9.5-13.5 [facility] Comment on above: Performed By: #### C BC #### [facility] [address] [place] [address] Dr. Malia Bustamante PLT 198 103/ul Normal 150-450 [facility] Comment on above: Performed By: #### C BC #### [facility] [address] [place] [address] Dr. Malia Bustamante RBC 3.22 106/ul Critically low 4.20-5.40 [facility] Comment on above: Performed By: #### C BC #### [facility] [address] [place] [address] Dr. Malia Bustamante WBC 6.4 103/ul Normal 4.0-11.0 [facility] Comment on above: Performed By: #### C BC #### [facility] [address] [place] [address] Dr. Malia Bustamante FREE THYROXINE INDEX T7on FTI 3.26 Normal 1.30-4.50 [facility] Comment on above: Performed By: #### L IPID, CMP, TSH, T7, BNP #### [facility] [address] [place] [address] Dr. Malia Bustamante T3U 35.0 % Normal 30.0-39.0 [facility] Comment on above: Performed By: #### L IPID, CMP, TSH, T7, BNP #### [facility] [address] [place] [address] Dr. Malia Bustamante T4 [Mass/Vol] 9.30 ug/dL Normal 4.80-13.90 [facility] Comment on above: Performed By: #### L IPID, CMP, TSH, T7, BNP #### [facility] [address] [address] [address] Malia Bustamante GLYCOHEMOGLOBIN A1Con 2022 ADA RECOMMENDATION SEE BELOW Normal [facility] Comment on above: Result Comment: ADA RECOMMENDED LIMIT 4.0 - 6.0 ADA THERAPEUTIC TARGET < 7.0 ACTION SUGGESTED > 7.0 Performed By: #### A 1C #### [facility] [address] [address] [address] Malia Bustamante Glucose [Mass/Vol] 97 mg/dL Normal [facility] Comment on above: Performed By: #### A 1C #### [facility] [address] [address] [address] Malia Bustamante HbA1c (Bld) [Mass fraction] 5.0 % Normal 4.5-6.2 [facility] Comment on above: Performed By: #### A 1C #### [facility] [address] [address] [address] Malia Bustamante IRONon 10-29-2022 Iron [Mass/Vol] 78.0 ug/dL Normal 50.0-170.0 [facility] Comment on above: Performed By: #### I MIRZA VITAD ####[facility] [address] [place], [place] [address]FzDr. Malia Bustamante LIPID PROFILEon 10-29-2022 CHOL-HDL RATIO NORM SEE BELOW Normal [facility] Comment on above: Result Comment: 3.3 - 4.4 LOW RISK 4.4 - 7.1 AVERAGE RISK 7.1 - 11.0 MODERATE RISK >11.0 HIGH RISK Performed By: #### L IPID, CMP, TSH, T7, BNP #### [facility] [address] [address] [address] Malia Bustamante Cholesterol [Mass/Vol] 131 mg/dL Normal <=200 [facility] Comment on above: Performed By: #### L IPID, CMP, TSH, T7, BNP #### [facility] [address] [address] [address] Malia Bustamante Cholesterol in HDL [Mass/Vol] 51 mg/dL Normal 40-60 [facility] Comment on above: Performed By: #### L IPID, CMP, TSH, T7, BNP #### [facility] [address] [address] [address] Malia Bustamante Cholesterol in LDL [Mass/Vol] 59.0 mg/dL Normal [facility] Comment on above: Performed By: #### L IPID, CMP, TSH, T7, BNP #### [facility] [address] [address] [address] Malia Bustamante Cholesterol.total/Ch olesterol in HDL [Mass ratio] 2.6 {ratio} Normal [facility] Comment on above: Performed By: #### L IPID, CMP, TSH, T7, BNP #### [facility] [address] [address] [address] Malia Bustamante HDL NORMAL > or = 60 mg/dl - LO W CARDIOVASCULAR RISK <40 mg/dl - HIGH CARDIOVASCULAR RISK Normal [facility] Comment on above: Performed By: #### L IPID, CMP, TSH, T7, BNP #### [facility] [address] [address] [address] Malia Bustamante LDL CALC NORMAL SEE BELOW Normal [facility] Comment on above: Result Comment: <100 mg/dl OPTIMAL 100 - 129 mg/dl NEAR OR ABOVE OPTIMAL 130 - 159 mg/dl BORDERLINE HIGH 160 - 189 mg/dl HIGH >190 mg/dl VERY HIGH Performed By: #### L IPID, CMP, TSH, T7, BNP #### [facility] [address] [address] [address] Malia Busatmante Triglyceride [Mass/Vol] 105 mg/dL Normal <=150 [facility] Comment on above: Performed By: #### L IPID, CMP, TSH, T7, BNP #### [facility] [address] [address] [address] Malia Bustamante VLDL CALC 21.0 mg/dL Normal [facility] Comment on above: Performed By: #### L IPID, CMP, TSH, T7, BNP #### [facility] [address] [place] [address] Dr. Malia Bustamante PROF 14(COMP METB)on 023 Albumin [Mass/Vol] 3.8 g/dL Normal 3.4-5.0 [facility] Comment on above: Performed By: #### L IPID, CMP, TSH, T7, BNP #### [facility] [address] [place] [address] Dr. Malia Bustamante Albumin/Globulin [Mass ratio] 1.2 {ratio} Normal [facility] Comment on above: Performed By: #### L IPID, CMP, TSH, T7, BNP #### [facility] [address] [place] [address] Dr. Malia Bustamante ALP [Catalytic activity/Vol] 53 U/L Normal 46-116 [facility] Comment on above: Performed By: #### L IPID, CMP, TSH, T7, BNP #### [facility] [address] [place] [address] Dr. Malia Bustamante ALT [Catalytic activity/Vol] 16 U/L Normal 14-59 [facility] Comment on above: Performed By: #### L IPID, CMP, TSH, T7, BNP #### [facility] [address] [place] [address] Dr. Malia Bustamante Anion gap [Moles/Vol] 15.0 mmol/L Normal [facility] Comment on above: Performed By: #### L IPID, CMP, TSH, T7, BNP #### [facility] [address] [place] [address] Dr. Malia Bustamante AST [Catalytic activity/Vol] 18 U/L Normal 15-37 [facility] Comment on above: Performed By: #### L IPID, CMP, TSH, T7, BNP #### [facility] [address] [place] [address] Dr. Malia Bustamante Bilirubin [Mass/Vol] 0.4 mg/dL Normal 0.2-1.0 [facility] Comment on above: Performed By: #### L IPID, CMP, TSH, T7, BNP #### [facility] [address] [place] [address] Dr. Malia Bustamante Calcium [Mass/Vol] 10.3 mg/dL Critically high 8.5-10.1 [facility] Comment on above: Performed By: #### L IPID, CMP, TSH, T7, BNP #### [facility] [address] [place] [address] Dr. Malia Bustamante Chloride [Moles/Vol] 110 mmol/L Critically high 98-107 [facility] Comment on above: Performed By: #### L IPID, CMP, TSH, T7, BNP #### [facility] [address] [place] [address] Dr. Malia Bustamante CO2 [Moles/Vol] 21.6 mmol/L Normal 21.0-32.0 [facility] Comment on above: Performed By: #### L IPID, CMP, TSH, T7, BNP #### [facility] [address] [place] [address] Dr. Malia Bustamante Creatinine [Mass/Vol] 1.53 mg/dL Critically high 0.55-1.02 [facility] Comment on above: Performed By: #### L IPID, CMP, TSH, T7, BNP #### [facility] [address] [place] [address] Dr. Malia Bustamante EGFR-AF CHILEAN 40 mL/min/1.73m2 Critically low >=60 [facility] Comment on above: Performed By: #### L IPID, CMP, TSH, T7, BNP #### [facility] [address] [place] [address] Dr. Malia Bustamante EGFR-NON AF CHILEAN 33 mL/min/1.73m2 Critically low >=60 [facility] Comment on above: Performed By: #### L IPID, CMP, TSH, T7, BNP #### [facility] [address] [place] [address] Dr. Malia Bustamante Globulin (S) [Mass/Vol] 3.2 g/dL Normal [facility] Comment on above: Performed By: #### L IPID, CMP, TSH, T7, BNP #### [facility] [address] [address] [address] Malia Bustamante Glucose [Mass/Vol] 106 mg/dL Normal 74-106 [facility] Comment on above: Performed By: #### L IPID, CMP, TSH, T7, BNP #### [facility] [address] [place] [address] Dr. Malia Bustamante Potassium [Moles/Vol] 4.6 mmol/L Normal 3.5-5.1 [facility] Comment on above: Performed By: #### L IPID, CMP, TSH, T7, BNP #### [facility] [address] [place] [address] Dr. Malia Bustamante Protein [Mass/Vol] 7.0 g/dL Normal 6.4-8.2 [facility] Comment on above: Performed By: #### L IPID, CMP, TSH, T7, BNP #### [facility] [address] [place] [address] Dr. Malia Bustamante Sodium [Moles/Vol] 142 mmol/L Normal 136-145 [facility] Comment on above: Performed By: #### L IPID, CMP, TSH, T7, BNP #### [facility] [address] [place] [address] Dr. Malia Bustamante Urea nitrogen [Mass/Vol] 38.0 mg/dL Critically high 7.0-18.0 [facility] Comment on above: Performed By: #### L IPID, CMP, TSH, T7, BNP #### [facility] [address] [place] [address] Dr. Malia Bustamante Urea nitrogen/Creatinine [Mass ratio] 24.8 mg/mg Normal [facility] Comment on above: Performed By: #### L IPID, CMP, TSH, T7, BNP #### [facility] [address] [place] [address] Dr. Malia Bustamante TSHon 10-29-2022 TSH 2.124 uIU/mL Normal 0.358-3.740 [facility] Comment on above: Performed By: #### L IPID, CMP, TSH, T7, BNP #### [facility] [address] [place], [place] [address] Dr. Malia Bustamante VITAMIN D 25 OHon 10-29-2022 VIT D 25-OH 69.6 ng/mL Normal [facility] Comment on above: Performed By: #### I MIRZA VITAD ####[facility] [address] [address]Dr. Malia Bustamante VIT D RANGES SEE BELOW Normal [facility] Comment on above: Result Comment: <20 ng/mL Vit D deficient 20 - <30 ng/mL Vit D insufficient 30 - 100 ng/mL Vit D sufficient >100 ng/mL Potential Toxicity Performed By: #### I MIRZA VITPETERSON ####[facility] [address] [place], [place] [address]Dr. Malia Bustamante CALCIUMon 09-05-2022 Calcium [Mass/Vol] 10.5 mg/dL Critically high 8.5-10.1 [facility] Comment on above: Performed By: #### C Marbella CREA ####[facility] [address] [place], [place] [address]Dr. Malia Bustamante CREATININEon 09-05-2022 Creatinine [Mass/Vol] 1.60 mg/dL Critically high 0.55-1.02 [facility] Comment on above: Performed By: #### C Marbella, CREA ####[facility] [address] [address]Dr. Malia Bustamante EGFR-AF CHILEAN 38 mL/min/1.73m2 Critically low >=60 [facility] Comment on above: Performed By: #### C Marbella, CREA ####[facility] [address] [address]Dr. Malia Bustamante EGFR-NON AF CHILEAN 31 mL/min/1.73m2 Critically low >=60 [facility] Comment on above: Performed By: #### C Marbella, CREA ####[facility] [address] [address]Dr. Malia Bustamante MG MAMM SCREEN 3D HOMERO CADon 05-25-2022 MG MAMM SCREEN 3D HOMERO CAD Patient: LIZABETH MONTANEZMacey Exam Date: 05/25/2022 : 1945 Gender:F Ordering : DR ISAK BONE . Admission #: [id number] Family : Order #: [id number] CLICK HERE TO VIEW EXAM RADIOLOGY REPORT PROCEDURE: MAMMOGRAM SCREENING 3D BILATERAL CAD COMPARISON: MG MAMM SCREEN HOMERO W CAD, 11/13/2019. MG MAMM SCREEN HOMERO W CAD, 10/28/2018. MG MAMM HOMERO SCRN W CAD DIG, 06/26/2013. MG MAMM SCREEN 3D HOMERO CAD, 04/28/2021. INDICATIONS: Screening mammography Calculator Name [facility] Breast Cancer Risk Assessment Tool 5 Year Breast Cancer Risk 2.00% Lifetime Breast Cancer Risk 4.00% Personal Breast Cancer No Personal Ovarian Cancer No Treatments None Family Cancers Grandmother-paternal with breast cancer at age 60. LOCATION: [facility] BREAST COMPOSITION: Heterogeneously dense,which may obscure [...] BIOPSIED. Dictated by: Devaughn Richards M.D. on 05/25/2022 at 14:13 Approved by: Devaughn Richards M.D. on 05/25/2022 at 14:19 [facility] Encounters Encounter Date Encounter Type Care Provider Facility Start: 05-28-2025 End: 05-28-2025 ambulatory [facility] Start: 11-17-2024 End: 11-17-2024 ambulatory [facility] Start: 08-13-2024 End: 08-13-2024 ambulatory [facility] Start: 08-13-2024 ambulatory [facility] Start: 02-27-[address] ISAK BONE . Facili ty:[facility] Start: 12-28-2022 Encounter for other preprocedural examination [facility] Start: 12-26-2022 End: 12-27-2022 ambulatory DAVE UGALDE Facility:[facility] Start: 12-26-2022 End: 12-27-2022 Encounter for other preprocedural examination DAVE UGALDE Facility:[facility] Start: 12-08-2022 End: 12-09-2022 ambulatory [...] ISAK BONE . Facility:[facility] Start: 10-28-2017 Ambulatory [facility] Start: 06-06-2017 End: 06-07-2017 Ambulatory DEFAULT PHYSICIAN Facility:[facility] Payers Date Payer Category Payer Medicare [id number] 1958 Self-pay 1945 Unknown [id number] 2.16.84 [id number] 1945 Unknown [id number] 2.16.84 [id number] 1945 Unknown [id number] 2..84 [id number] 1945 Unknown [id number] 1945 Unknown [id number] 2..84 [id number] 1945 Unknown [id number] 2.16.84 [id number] 1945 Unknown [id number] 2.16.84 [id number] 1945 Unknown [id number] 2.16.84 [id number] 1945 Unknown [id number] 2.16.84 [id number] Unknown Progress note 05-28-2025 Note Date & Type Note Facility 05-28-2025 Note [place] Cardiology - [facility] Subjective Lizabeth Montanez is a 80 y.o. year old female patient being seen for 6 month follow up with Echo, Atrial Fibrillation, Left ventricular hypertorophy, Pulmonary Hypertension, Palpitations, Obesity, Stage 4 Kidney disease, Nonrheumatic mitral valve regurgitation, and Anticoagulation Problem List[1] HPI Patient is here today for follow-up visit. She used to follow with who is not in the practice now. She states that she has been doing well. She walks around the house without assistance however outside she walks using a cane after she had bilateral knee replacement. She denies any chest discomfort at rest or with exertion. She denies exertional dyspnea, orthopnea or paroxysmal nocturnal dyspnea. She denies any palpitations or dizziness or syncope or near syncope. She denies any leg discomfort or legs edema. ROS All systems were reviewed and they were negative except for the positive findings noted above in the history Medical History[2] Surgical History[3] Family History[4] Social History[5] Allergies Allergies[6] Medications Current Medications[7] Objective Visit Vitals BP 159/83 (BP Location: Left arm, Patient Position: Sitting) Pulse 80 Ht 1.651 m (5' 5 ) Wt 91.6 kg (202 lb) SpO2 96% BMI 33.61 kg/m??? OB Status Postmenopausal Smoking Status Never BSA 2.05 m??? Physical exam: GENERAL: alert and oriented x3, well developed, in no acute distress. HEAD: atraumatic, normocephalic. EYES: TEMO, EOMI. NECK: trachea midline, no JVD present, no carotid bruits present. CARDIAC: S1, S2 present. Irregular irregularity. Short systolic murmur 2/6 heard best at the left lower sternal border and the base RESPIRATORY: CTAB, no increased effort of breathing, no rales, rhonchi, or wheezing. ABDOMEN: soft, nontender, nondistended. EXTREMITIES: no lower extremity edema. No rash/skin discoloration present. NEURO: strength/sensation equal and symmetric in bilateral upper and lower extremities. PSYCH: appropriate mood, affect, and judgement. Recent Labs 12/08/2024 White blood count 8.6, hemoglobin 11.6, hematocrit 35.8, platelets 261, calcium 11.6 Sodium 138, potassium 4.4, BUN 41, creatinine 1.6, GFR 31, glucose 107, HbA1c 5.3% Total bilirubin 0.6, AST 26, ALT 30, alk phos 119, total protein 7.7, albumin 3.8 Triglyceride 49, cholesterol 110, LDL 26, HDL 75 TSH 2.43, free T49.4, free T32.57 Lab Results Component Value Date GLUCOSE 88 01/30/2024 CALCIUM 10.8 (H) 01/30/2024 NA 135 (L) 01/30/2024 K 4.4 01/30/2024 CO2 27 01/30/2024 CL 105 01/30/2024 BUN 45 (H) 01/30/2024 CREATININE 1.45 (H) 01/30/2024 Lab Results Component Value Date WBC 9.11 01/30/2024 HGB 7.8 (L) 01/30/2024 HCT 24.8 (L) 01/30/2024 MCV 99.6 (H) 01/30/2024 PLT 245 01/30/2024 Lab Results Component Value Date TSH 0.97 01/25/2024 Imaging and other tests EKG: EKG 01/07/2024 showed atrial fibrillation with slow ventricular rate, right axis deviation, cannot rule out anterior infarct age indeterminant Echo: 05/24/2025 CONCLUSION: 1. Global left ventricular systolic function is normal; visually estimated ejection fraction is 55 to 60% 2. Normal right ventricular size and systolic function 3. Mild left ventricular hypertrophy 4. Severe biatrial dilatation 5. Mild tricuspid regurgitation 6. Moderate to severe mitral regurgitation 7. Mild aortic valve regurgitation 8. Mild aortic valve stenosis Consider transesophageal echocardiography for evaluation of severity of mitral regurgitation as clinically appropriat Echo 03/27/2024 Stress test: Cardiac cath: Event Monitor: Cardiac MRI: CX ray: Assessment/Plan Chronic A-fib On bisoprolol for rate control and on Eliquis for anticoagulation Mitral regurgitation, reported to be moderate to severe on recent echo but the patient is asymptomatic Pulmonary hypertension, reported to be mild on previous echo. It was not noted on the current echo Essential hypertension, on Zebeta, Entresto, hydralazine, and Lasix. Blood pressure is elevated today but the patient reports that it is usually normal Chronic kidney disease Obesity, BMI 33.6 kg/m??? Plan: Continue current medications including Eliquis, Zebeta, Entresto, hydralazine, and Lasix I asked the patient to check blood pressure twice daily for 2 weeks and send me the log I discussed with patient follow-up on MR with repeat echo in 6 months versus DENISE. The patient preferred to have an echo in 6 months and go from there. Patient was advised to contact me if she develops any exertional dyspnea The patient was encouraged to follow a low calorie low-carb diet and try to walk more achieving 1 mile a day 3-5 times a week Follow-up with me in 6 months after echo Jose Campbell MD,FACC [1] Patient Active Problem List Diagnosis Chronic atrial fibrillation (CMS/HCC) Disorder of cardiovascu (more content not included)... [facility] Progress note 11-17-2024 Note Date & Type Note Facility [...] return precautions were provided. Patient verbalizes understanding Dave Ugalde MD [facility] Progress note 08-13-2024 Note Date & Type Note Facility 08-13-2024 Note Orthopedic Surgery Subjective 01/24/2024 Total [...] straightens out her leg and moves it [id number] she is able to stand up without [...] CREATED AUTHOR AUTHOR'S ORGANIZ ATION 03/26/2018 [facility] DATE CREATED AUTHOR AUTHOR'S ORGANIZ ATION 03/08/2023 [facility] DATE CREATED AUTHOR AUTHOR'S ORGANIZ ATION 05/28/2025 [facility] FOR RECORDS PERTAINING TO PATIENTS WHO [...] BE BASED ON THE PRIMARY CLINICAL RECORDS. [email or web address] provides no warranty or guarantee of the accuracy or completeness of information in this document.
--- NOTE | 2025-06-04 08:55 | MM_ITS ---
Patient Name: JELLY MONTANEZ MR#: [id number] : 1945 Exam Date: 06/04/2025 Ordering Doctor: DR ISAK RAYO . RADIOLOGY REPORT PROCEDURE: MM TOMOSYNTHESIS SCREENING BI COMPARISON: MM TOMOSYNTHESIS SCREENING BI, 05/29/2024. MM TOMOSYNTHESIS SCREENING BI, 05/28/2023. MG MAMM SCREEN 3D HOMERO CAD, 05/25/2022. MG MAMM HOMERO SCRN W CAD DIG, 06/26/2013. INDICATIONS: Screening Calculator Name NCI Breast Cancer Risk Assessment Tool 5 Year Breast Cancer Risk 1.90% Lifetime Breast Cancer Risk 3.10% Personal Breast Cancer No Personal Ovarian Cancer No Treatments None Family Cancers Grandmother-paternal with breast cancer at age 60. LOCATION: [facility] BREAST COMPOSITION: The breasts are heterogeneously dense, which may obscure small masses. FINDINGS: DIAGNOSTIC CATEGORY 2--BENIGN FINDING. NO CHANGE FROM COMPARISON. RIGHT BREAST: No significant suspicious finding. Benign-appearing calcifications are present. LEFT BREAST: No significant suspicious finding. Benign-appearing calcifications are present. RECOMMENDATIONS: ROUTINE MAMMOGRAM AND CLINICAL EVALUATION IN 12 MONTHS. Dictated by: Ortega Garcia MD on 06/04/2025 at 14:09 Approved by: Ortega Garcia MD on 06/04/2025 at 14:14
== END 2025-06-04 08:28 | disposition home or self-care (01) ==
LOC: MAMMO 08:27
PROVIDERS: PCP Family Medicine; Visit Provider Family Medicine
DX: Z12.31 Encounter for screening mammogram for malignant neoplasm of breast (principal); Z80.3 Family history of malignant neoplasm of breast
CPT/HCPCS: 77063; 77067